=== PATIENT | male | born 1940 | race Caucasian/White ===

== ENCOUNTER → 2020-07-18 14:15 | Outpatient (CLI) | payer MEDICARE, SELFPAY ==
[2020-07-18 13:37] VITALS: BMI 33.7
[2020-07-18 15:23] LABS: Absolute Lymphocyte Count 1.48 X10^3/uL (0.83-4.51); Absolute Neutrophil Count 4.5 X10^3/uL (2.0-7.7); Basophil# 0.06 X10^3/uL; Basophil% 0.9 % (0-1); Eosinophil# 0.27 X10^3/uL; Eosinophils% 3.8 % (0-5); Hematocrit 40.4 % (40-54); Hemoglobin 13.5 g/dL (13.0-16.5); Lymphocyte # 1.48 X10^3/ul (4.0); Mean Corp Hgb Conc 33.4 g/dL (32-36); Mean Corpuscular Hgb 30.3 pg (27.0-32.0); Mean Corpuscular Volume 90.8 fL (80-94); Mean Platelet Vol. 9.1 fl (6.2-12.0); Monocyte# 0.76 X10^3/uL; Monocyte% 10.8 % (0-10); NRBC Flagged by Analyzer 0 % (0-5); Neutrophil # 4.46 X10^3/uL (2.7-7.7); Neutrophil % 63.2 % (47-70); Platelet Count 249 K/mm3 (150-450); RBC Distribution Width CV 15.1 % (11.6-14.6); Red Blood Count 4.45 M/mm3 (4.6-6.2); White Blood Count 7.1 K/mm3 (4.4-11.0)
[2020-07-18 16:05] LABS: ALB/GLOB Ratio 1.2 RATIO (0.9-2.4); AST(SGOT) 17 U/L (15-37); Alanine Aminotransfer ALT/SGPT 21 U/L (16-61); Alkaline Phosphatase 93 U/L (45-117); Anion Gap 7 (5-15); BUN 14 mg/dL (7-18); BUN/Creat Ratio 18.2 RATIO (10-20); Calcium,Total 8.8 mg/dL (8.5-10.1); Chloride 98 mmol/L (98-107); Cholesterol 176 mg/dL (200); Creatinine, Serum 0.77 mg/dL (0.70-1.30); EST Glomerular Filtration Rate 103 mL/min (>60); Est Glom Filt Rate - Afr Amer 125 mL/min (>60); Globulin 3.4 g/dL (2.2-4.2); Glucose 88 mg/dL (74-106); High Density Lipoprotein 60 mg/dL; Potassium 3.8 mmol/L (3.5-5.1); Protein, Total 7.4 g/dL (6.4-8.2); Sodium Level 132 mmol/L (136-145); Triglycerides 131 mg/dL; Very Low Density Lipoprotein 26 mg/dL (5-40)
== END ==
PROVIDERS: Visit Provider Internal Medicine
DX: I10 Essential (primary) hypertension (principal)
CPT/HCPCS: 36415; 80053; 80061; 85025

== ENCOUNTER → 2020-08-09 13:22 | Outpatient (CLI) | payer MEDICARE, SELFPAY ==
--- NOTE | 2020-08-09 13:26 | RAD_ITS ---
PROCEDURE: LUMBAR MYELOGRAM DATE OF EXAMINATION: 08/09/2020 INDICATION: Male, 80 years old. Low back pain. PHYSICIAN: Ubaldo Timmons M.D. CONSENT: The patient''s history and physical findings were reviewed. The lumbar myelogram procedure was discussed with the patient prior to signing a consent. SEDATION: Local anesthesia with 3 mL of 1% lidocaine was used. FLUOROSCOPY TIME (if supplied): (2:04) minutes/seconds. Injection Information: 20 ccs of ISOVUE-M 200 Number of images obtained: 4 TECHNIQUE: Digital fluoroscopy was used to identify a safe approach for the lumbar myelogram. The back was prepped and draped in usual fashion. Local anesthesia was utilized. Under fluoroscopic guidance a 22-gauge spinal needle was inserted into the spinal canal at the L4-5 level. Clear spinal fluid was seen. 20 mL of Isovue 200 M was injected into the spinal canal. There is evidence of a diffuse spinal stenosis at the L2-L3, L3-L4, L4-L5 and L5-S1 levels. Multilevel disc space narrowing. Facet joint osteoarthritis. There is evidence of aortic stenting. RAD/Myelography 2/> Spine Regions IMPRESSION: Multilevel spinal stenosis as described. The patient tolerated the procedure well. Electronically Signed: Ubaldo Timmons MD at 14:59 EST , Service support ,
--- NOTE | 2020-08-09 13:27 | CT_ITS ---
STUDY: CT LUMBAR SPINE WITH INTRATHECAL CONTRAST (LUMBAR CT MYELOGRAM) REASON FOR EXAM: Male, 80 years old. DEGENERATIVE SPONDYLOLISTHESIS, BACK PAIN RADIATION DOSAGE (If Supplied By Facility): CTDIvol = ( 13.82 ) mGy, DLP = ( 373.83 ) mGycm TECHNIQUE: Transaxial images were obtained from the L1 vertebra through the S1, following intrathecal administration of 20 ml of ISOVUE-M 200 contrast material, performed by Dr. CAMPBELL. Please refer to this physicians technical notes for procedural details. Coronal and sagittal reconstructions were obtained. Individualized dose optimization techniques were used for this CT. COMPARISON: None. FINDINGS: Normal lumbar lordosis. There is no substantial scoliosis. Normal vertebrae of the lumbar spine. There is dependent layering of contrast material in the distal thecal sac. The conus medullaris terminates in a normal position at the L1-L2. There is no demonstrated cauda equina nerve root abnormality or intraspinal mass. L1-2: Mild degree of the disc space narrowing. Diffuse posterior disc bulge with hypertrophy of the ligamentum flavum causing a mild degree of central canal stenosis. L2-3: Marked degree of central canal stenosis. Facet joint osteoarthritis and hypertrophy with bilateral neural foraminal stenosis. L3-4: Mild degree of disc space narrowing. Severe central canal stenosis due to hypertrophy of the ligamenta flava and diffuse posterior disc bulge. Facet joint osteoarthritis and hypertrophy. L4-5: Severe degree of central canal stenosis. There is evidence of a right lateral disc herniation causing right neural foraminal stenosis and spinal stenosis. L5-S1: Marked degree of disc space narrowing. Subchondral sclerosis. Facet joint osteoarthritis. There are degenerative changes of the bilateral sacroiliac joints. Covered stent within the abdominal aorta and proximal iliac arteries bilaterally. CT/Spine Lumbar WITH Contrast IMPRESSION: Multilevel spinal stenosis. Electronically Signed: Ubaldo Campbell MD at 15:42 EST , Service support ,
[2020-08-09 13:43] VITALS: BP 143/71; PULSE 74; RESP 16; TEMP 36.6; O2SAT 98; BMI 23.7
[2020-08-09 14:30] VITALS: BP 143/95; PULSE 80; RESP 16; O2SAT 99
[2020-08-09 15:00] VITALS: BP 111/79; PULSE 77; RESP 16; O2SAT 95
[2020-08-09 15:38] VITALS: BP 158/83; PULSE 81; RESP 16; O2SAT 98
== END ==
PROVIDERS: PCP Internal Medicine
DX: M43.10 Spondylolisthesis, site unspecified (principal)
CPT/HCPCS: 62305; 72132

== ENCOUNTER → 2020-09-07 07:04 | Outpatient (CLI) | payer MEDICARE, SELFPAY ==
[2020-08-31 14:25] VITALS: BMI 22.0
--- NOTE | 2020-09-07 07:09 | ECHOCS_ITS ---
Version 2 Reason For Study: CAD/ASHD Procedure This was a 2D Doppler, Color Flow transthoracic echocardiogram. The study was technically difficult. Contrast injection was performed. Exam performed in department. Left Ventricle Normal LV size. Mild concentric left ventricular hypertrophy. Left ventricular systolic function is normal. The estimated ejection fraction is 55 %. No regional wall motion abnormalities noted. Right Ventricle Normal RV size. Normal systolic function. Atria Normal left atrium. Normal right atrium. Mitral Valve Normal mitral valve. Mild (1+) eccentric mitral valve insufficiency. Tricuspid Valve The tricuspid valve is not well visualized. Trivial tricuspid valve insufficiency. Aortic Valve Trisinus/trileaflet aortic valve. Trivial aortic valve insufficiency. Pulmonic Valve Normal pulmonic valve. Great Vessels Normal aortic root. The pulmonary artery is normal size. Normal inferior vena cava. Pericardium/Pleural No pericardial effusion. Medication Diluted definity 2ml given slow IV push to enhance endocardial definition. MMode/2D Measurements & Calculations LVIDd: 5.3 cm IVSd: 1.3 cm Ao root diam: 2.8 cm LVIDs: 3.5 cm LVPWd: 1.3 cm RVDd: 3.6 cm FS: 34.2 % LAV(MOD-bp): 29.0 ml LA A4 area: 13.0 cm2 LA dimension(2D): 3.3 cm LAV(MOD-bp) Indexed: 16.3 ml/m2 LAV(MOD-sp2): 28.5 ml LAV(MOD-sp4): 27.7 ml RA A4 area: 11.4 cm2 Doppler Measurements & Calculations MV E max ricci: 56.6 cm/sec Lat Peak E' Ricci: 9.3 cm/sec Med Peak E' Ricci: 7.1 cm/sec MV A max ricci: 81.9 cm/sec E/E' lat: 6.1 E/E' med: 8.0 MV E/A: 0.69 Ao V2 max: 108.9 cm/sec LV V1 max: 84.1 cm/sec PA V2 max: 91.9 cm/sec Ao max P.7 mmHg LV V1 max P.8 mmHg Ao V2 mean: 71.7 cm/sec Ao mean P.4 mmHg Ao V2 VTI: 21.7 cm TR max ricci: 195.8 cm/sec TR max P.3 mmHg Interpretation Summary Normal LV size. Left ventricular systolic function is normal. The estimated ejection fraction is 55 %. No regional wall motion abnormalities noted. Mild concentric left ventricular hypertrophy. Contrast injection was performed. Ordering Physician: Adair Calderon Referring Physician: Roberto Wing Performed By: Melany Trotter, EVITA, RVT
--- NOTE | 2020-09-07 18:04 | STRESSREP ---
Stress Test Report Pharmacologic myocardial perfusion stress test. 80-year-old man with a history of chest pain patient with known coronary artery disease. Stress protocol Resting EKG demonstrates normal sinus rhythm with a rate of 78 bpm normal intervals are noted. Resting blood pressure is 142/90 mmHg. 0.4 mg of regadenoson was infused per usual protocol followed by rapid intravenous saline flush injection continuous EKG monitoring was performed. Patient maintained sinus rhythm throughout the recording. At rest there were no ST changes noted to suggest abnormal flow reserve. At peak infusion there was approximately 0.[address] depression noted in leads II, III and aVF and 0.[address] depression noted in V5 and V6 suggestive of abnormal flow reserve. The peak blood pressure was 140/90 mmHg. Myocardial perfusion protocol. 11.4 mCi of technetium 99m sestamibi was injected at rest. 0.4 mg of regadenoson was infused per usual protocol. At peak infusion 33.3 mCi of technetium 99m sestamibi was injected stress images were obtained stress and rest images were reconstructed and compared in the short axis vertical long and horizontal long axis. Gated images were obtained. Perfusion SPECT analysis: Review of the stress images demonstrate normal uptake of tracer noted in all areas of the myocardium the resting images similar demonstrate normal uptake of tracer noted in all areas of the myocardium no areas of reversibility are noted suggest ischemia no previous infarct is noted. Gated SPECT analysis: The gated ejection fraction is noted to be 48%. Conclusion: Normal pharmacologic myocardial perfusion stress test with no evidence of ischemia. Low normal ejection fraction. EKG changes suggestive but not diagnostic of ischemia.
== END ==
PROVIDERS: PCP Internal Medicine; Referring Provider Internal Medicine Cardiovascular Disease; Visit Provider Internal Medicine Cardiovascular Disease
DX: I25.10 Atherosclerotic heart disease of native coronary artery without angina pectoris (principal)
CPT/HCPCS: 78452; 93017; 93306; A9500; Q9957; A4216; C8929; J2785

== ENCOUNTER 2020-10-06 14:15 | Observation (INO) | payer MEDICARE, SELFPAY ==
[2020-08-31 14:25] VITALS: BMI 22.0
[2020-09-30 15:24] LABS: Absolute Lymphocyte Count 2.35 X10^3/uL (0.83-4.51); Absolute Neutrophil Count 3.3 X10^3/uL (2.0-7.7); Basophil# 0.05 X10^3/uL; Basophil% 0.8 % (0-1); Eosinophil# 0.21 X10^3/uL; Eosinophils% 3.2 % (0-5); Hematocrit 41.1 % (40-54); Hemoglobin 13.9 g/dL (13.0-16.5); Lymphocyte # 2.35 X10^3/ul (0.83-4.51); Lymphocyte % 35.8 % (19-41); Mean Corp Hgb Conc 33.8 g/dL (32-36); Mean Corpuscular Hgb 32.2 pg (27.0-32.0); Mean Corpuscular Volume 95.1 fL (80-94); Monocyte# 0.64 X10^3/uL; Monocyte% 9.7 % (0-10); NRBC Flagged by Analyzer 0 % (0-5); Neutrophil # 3.29 X10^3/uL (2.7-7.7); Platelet Count 255 K/mm3 (150-450); RBC Distribution Width CV 14.3 % (11.6-14.6); Red Blood Count 4.32 M/mm3 (4.6-6.2); White Blood Count 6.6 K/mm3 (4.4-11.0)
[2020-09-30 15:48] LABS: Partial Thromboplast Time 24.7 Seconds (24.1-36.2)
[2020-09-30 16:20] LABS: Anion Gap 4 (5-15); BUN 15 mg/dL (7-18); BUN/Creat Ratio 15.8 RATIO (10-20); Calcium,Total 9.3 mg/dL (8.5-10.1); Chloride 101 mmol/L (98-107); Creatinine, Serum 0.95 mg/dL (0.70-1.30); EST Glomerular Filtration Rate 81 mL/min (>60); Est Glom Filt Rate - Afr Amer 98 mL/min (>60); Glucose 100 mg/dL (74-106); Sodium Level 134 mmol/L (136-145)
[2020-09-30 16:21] LABS: HIV - WCH Non-Reactive (Nonreactive)
[2020-09-30 16:36] LABS: AST(SGOT) 11 U/L (15-37); Alanine Aminotransfer ALT/SGPT 22 U/L (16-61); Alkaline Phosphatase 73 U/L (45-117); Bilirubin, Direct 0.25 mg/dL (0.00-0.30); Globulin 3.6 g/dL (2.2-4.2); Protein, Total 7.6 g/dL (6.4-8.2)
[2020-10-02 12:07] LABS: HEPATITIS B SURFACE AG Negative (Negative); Hepatitis A AB, Total Negative (Negative); Hepatitis A IgM Antibody Negative (Negative); Hepatitis B Core AB IgM Negative (Negative); Hepatitis B Core Ab Total Negative (Negative); Hepatitis C Ab <0.1 s/co ratio (0.0-0.9)
[2020-10-02 17:29] LABS: Hep B Surface Antibodies Non Reactive (.)
[2020-10-06] VITALS (14 sets, daily range): BP systolic 100–124; BP diastolic 65–79; PULSE 74–118; RESP 16–18; TEMP 36.4–36.8; O2SAT 90–100; BMI 23.2
[2020-10-06] MEDS: Lactated Ringers 1,000 ML 40 ML IV ×2 (06:25→20:42)
[2020-10-06] MEDS: Acetaminophen 500 MG Tablet 1000 MG PO (06:26)
[2020-10-06 06:35] LABS: Bedside Glucose 99 mg/dL (70-110)
--- NOTE | 2020-10-06 07:00 | HP_ITS ---
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) Chronic back pain (Chronic) Back problem (Chronic) Bone fracture (Chronic) Cataract (Chronic) GERD (gastroesophageal reflux disease) (Chronic) GI problem (Chronic) Gastric ulcer (Chronic) Headache, migraine (Chronic) Seasonal allergies (Chronic) Vision problem (Chronic) History of RSV infection (Resolved) Surgical History History of endovascular stent graft for abdominal aortic aneurysm (AAA) (Resolved 12/11/13) History of left heart catheterization (Resolved 11/11/13) Rupture of biceps tendon (Resolved) Family History Grandfather Cancer Father Brain aneurysm Social History (Updated 09/30/20 @ 11:[address] Dawson Escobar DO) Smoking Status: Current every day smoker Tobacco: How many years used: 62 alcohol intake: current alcohol intake frequency: 3 or more drinks per day Alcohol type: beer substance use type: does not use what type of physical activity do you participate in: none HPI lumbar spine: Surgical H&P: Yes Details: Parts of this documentation were recorded by a scribe, this documentation accurately reflects the service provided and the decisions made by me, Dr. Dawson Escobar DO 09/30/20 1030. CHITO CORDON is a 80 year old M here today for his pre-op. DOS: 10/06/2020. Patient denies any medical changes at this time. History and physical: Chief complaint: Patient complains of severe low back pain and bilateral leg pain that is intolerable. History of chief complaint: His complaints have been going on a long time but is gradually gotten worse. He cannot walk very far at all and has to use a walker to do so. He denies any bowel or bladder dysfunction per se. He has failed injections and other conservative measures. Allergies: No known allergies Medications: Patient is on carvedilol, losartan, omeprazole, tamsulosin Past medical history: He has an extensive medical history and this is all documented in the patient's chart. There is no need to repeat what is already in the chart. Social history: Patient is a smoker and has been for a long time. He thinks over 60 years. He drinks occasionally. Family history: Remarkable for cancer and aneurysms. Review of systems: General: Patient is well oriented as to time and place and other than his back appears normal Head: Patient denies headaches concussions or other complaints Eyes: Patient has no cataracts and only complains of vision problems in an 80-year-old. Ears: The only complaint is hard of hearing otherwise no ear pain or other abnormalities Throat: No complaints of soreness knots difficulty swallowing or any other abnormality Respiratory: He has no shortness of breath no cough or other abnormalities. Cardiac: Currently he has no chest pain he has no palpitations or other abnormalities even though he has a well-documented heart disease GI: He has no complaints of diarrhea abdominal pain or other abnormalities Urinary: No difficulty urinating, burning or pain Examination: Patient is normocephalic with no lesions noted on his head. The eyes are equally reactive to light and accommodation extraocular muscles appear intact. Examination of his ears demonstrate no abnormality. Examination of his throat demonstrates that the trachea is midline he has no adenopathy bruits or other abnormalities. Auscultation of the chest demonstrate that his lungs are clear at this time with no adventitious sounds. Auscultation of the heart demonstrates a normal rate and rhythm no murmurs are heard. Palpation of the abdomen reveals a soft nontender there is no organomegaly or tenderness. Urinary was waived. Neuro exam cranial nerves III through XII are grossly intact. Musculoskeletal the patient has known stenosis and so he walks forward bent he is neurologically intact in the lower extremities. Planned surgery: #1 complete decompression L4-5 CPT code: 53756 #2 complete decompression L3-4 CPT code: 73625/51 #3 complete decompression L2-3 CPT code: 12006/51 Assessment & Plan Problems 1. Spinal stenosis of lumbar region with neurogenic claudication M48.062 Coding Level of Care Code Off vis,est,level 2 Diagnoses Spinal stenosis of lumbar region with neurogenic claudication M48.062 Time Spent (min) 20
[2020-10-06] MEDS: Cefazolin 2 GM in 0.9% Normal Saline 100 ML IV (07:24)
--- NOTE | 2020-10-06 07:30 | RAD_ITS ---
STUDY: X-RAY - LUMBAR SPINE REASON FOR EXAM: Male, 80 years old. LUMBAR DECOMPRESSION L2-3,L3-4,L4-5 TECHNIQUE: 1 view(s) of the lumbar spine were obtained. COMPARISON: None FINDINGS: Localization instrument is seen lying posterior to the L4-L5 disc space level. RAD/Spine 1 View Any Level IMPRESSION: Localization instrument is seen lying posterior to the L4-L5 disc space level. Electronically Signed: Ubaldo Timmons MD at 10:56 EDT , Service support ,
[2020-10-06] MEDS: Thrombin 5,000 IU Kit (PSA) 5,000 IU Vial 5000 IU TOPICAL (08:16)
--- NOTE | 2020-10-06 11:20 | PCM.OPRPT ---
Report of Operation Date of Procedure: 10/06/20 Description of Surgical Findings:: Preoperative diagnosis: Severe spinal stenosis L4-5, L3-4, L2-3 Postoperative diagnoses: The same Procedures: #1 lumbar laminectomy decompression L4-5 CPT #55159 #2 Lumbar laminectomy decompression L3-4 CPT #06823/51 #3 Lumbar laminectomy decompression L2-3 CPT #40024/51 Surgeon: Dr. Escobar paraprofessional education assistant: CASSIDY Escalera Anesthesia: General endotracheal anesthesia administered by [facility] Estimated blood loss: 100 cc Drains: Medium Hemovac Complications: None Operative procedure: Patient was taken to the OR where he was placed under general endotracheal anesthesia. Neuro monitoring technicians inserted their leads in the appropriate places. A Keen catheter was inserted. The patient was then moved onto the prone position on the Alexandr frame. He was positioned appropriately with protection of his cervical spine his facial features his genitalia his brachial plexus and his ulnar nerves of both elbows. Once he was properly positioned the low back was prepped and draped in standard fashion. Made a longitudinal incision centered over the area that I thought would be L4-5. Subcutaneous tissues were incised the length of the skin incision. I then opened the lumbar fascia using cautery to the left of the spinous processes and elevated the paravertebral muscles off the lamina of L4. A marker was then put in place and an intraoperative x-ray was taken to assure that we were indeed at the proper level which we were. This was marked. I then extended my incision in a cephalad direction and then opened the lumbar fascia to the left of the spinous processes and elevated them off the lamina of 3 and then the lamina of 2 I also elevated off the top of the lamina of L5. He was controlled of course with the cautery unit and thorough irrigation was carried out frequently. Once this left side was open I then packed it and we opened the opposite side. Was done by elevating the paravertebral muscles off the lamina of L4, L3, and L2. Top of the L5 lamina was also exposed. Thorough irrigation was carried out frequently. The super slide retractors were then put in place giving us good access to all 3 levels. I started by removing the spinous process of the L4 vertebra bottom of the L3 vertebra also removed a little bit of the spinous process of the L5 vertebra. I did all the way down to the thickened lamina and the lamina was thinned out using double-action rongeurs. I then elevated the ligamentum flavum off the underside of the lamina of L4 on both sides with sharp angled curettes. This was done I began the laminectomy process. Using different size Kerrisons angled at 40 degrees and some just angled at 90 degrees I was able to perform the laminectomy using the 45 degree Kerrison's I was able to open the lateral recesses removing all the ligamentum flavum on the right side. Also removed some of it from the left side but this was finished when I changed sides of the table. I then removed the spinous process of the L3 vertebra in the same fashion that I did L4. Once I was down to the lamina I thinned the lamina on both sides with double-action rongeurs and again the ligamentum flavum was released with angled curettes the laminectomy was then started and moved all the way up and then started removing bone and ligamentum flavum from first the right side. Until the lateral recess was completely open. I did it partially on the left side also by removing ligamentum flavum at this level. I then used a double-action rongeur to remove the spinous process of L2 was removed again double-action rongeurs were used to thin down the lamina. Again the angled curettes were used to elevate the ligamentum flavum off the underside of the lamina of L2 and the laminectomy was carried out with 45 degree Kerrison rongeurs I likewise removed the ligamentum flavum with 45 degree Kerrison rongeurs all the way out to his right lateral recess. Completely opened the right side completely I did remove some of the ligamentum flavum off the left side to. Note to be continue to frequently thoroughly irrigate. I then changed side moved to the patient's right side once settled in with the headlamp in place I finished up the lateral recess opening at all 3 levels with 45 degree Kerrison rongeurs. Again we used different sizes depending on the thickness of the ligament etc. This was done we completely were decompressed at all 3 levels. We thoroughly irrigated 1 last time bleeders were controlled with cautery we then placed amnionic membrane over the entire open dura and placed Gelfoam over the top of that. A medium Hemovac drain was inserted and closure was begun. We closed the lumbar fascia using [id number] suture with #1 Vicryl followed by closure of subcutaneous tissues with 2-0 Vicryl in interrupted fashion and the skin was approximated using skin clips. Sterile dressings were then applied. The patient was then recovered in the OR he was moved to his hospital bed and taken to recovery in satisfactory condition. This is the end of operative summary on Eliel Milian. This is Dr. Escobar dictating.
--- NOTE | 2020-10-06 14:00 | PCM.PN.HOSP ---
Subjective: Patient is an 83 y/o with a PMH as outlined who was admitted to the spine surgery service for lumbar decompression surgery o./a of severe, chronic back pain. He had lumbar laminectomy and decompression of L2-3, L3-4 and L4-5. hospitalist service was consulted for medical management. He has a history of hypertension, atherosclerotic heart disease, GERD and gastric ulcer as well as ischemic cardiomyopathy. He also has history of abdominal aortic aneurysm status post stents. Patient also admits to history of drinking at least 5 beers every night and states he has no intention of stopping. Patient was seen after the surgery in his room. He had no complaints. Pain was well controlled. Review of symptoms otherwise negative. He was on 6 L of oxygen via nasal cannula. Vitals were significant for tachycardia with heart rate of 108. Vitals/I&O's: Vital Signs Temp Pulse Resp BP Pulse Ox 97.9 F 108 H 18 123/79 H 100 10/06/20 13:51 10/06/20 13:51 10/06/20 13:51 10/06/20 13:14 10/06/20 13:51 Oxygen Flow Rate (L/min) 6 Oxygen Delivery Method Simple Mask Weight: 152 lb 12.485 oz Body Mass Index (BMI) 23.2 Intake and Output for Last 24 Hours 10/04/20 10/05/20 10/06/20 23:59 23:59 23:59 Intake Total 214 / 214 Output Total 830 / 830 Balance -616 / -616 General: Alert, Oriented x3, Cooperative HEENT: Atraumatic, PERRLA, EOMI, Normocephalic Neck: Supple, No JVD, Negative Carotid Bruits Lungs: Clear to auscultation, Normal air movement Cardiovascular: Regular rate, No murmurs Abdomen: Bowel Sounds Present, Soft, Non Tender Extremities: No edema, Capillary Refill Less than 3 Seconds Skin: No rashes, No breakdown Musculoskeletal: No Tenderness to Palpation of Joints or Extremities, - - back surgical site dressing intact Neurological: Cranial nerves II-XII grossly intact, Neuro grossly intact, Motor Exam 5/5 strength throughout Psych/Mental Status: Normal Affect, Appropriate, Alert and oriented to time, place, person, mood and affect Laboratory Results 10/06/20 06:06: POC Glucose 99 Diagnostic Data Spine X-Ray 10/06/20 07:30 IMPRESSION: Localization instrument is seen lying posterior to the L4-L5 disc space level. Electronically Signed: Ubaldo Timmons MD at 10:56 EDT , Service support , Current Medications Diazepam (Diazepam 5 Mg Tablet) 5 mg PO Q6H PRN PRN PRN Reason: Muscle Spasms Enteral Nutritional Formula (Ensure Surgery 237 Ml Liquid) 237 ml PO TIDCM [facility] Last Admin: 10/06/20 14:00 Dose: Not Given Documented by: Famotidine (Famotidine 20 Mg Tablet) 20 mg PO BID [facility] Lactated Ringer's () 1,000 mls @ 40 mls/hr IV .Q25H [facility] Last Admin: 10/06/20 06:25 Dose: 40 mls/hr Documented by: Cefazolin Sodium () 1 gm in 50 mls @ 100 mls/hr IV Q8H [facility] Stop: 10/06/20 23:59 Sodium Chloride () 250 mls @ 15 mls/hr IV .[id number] PRN PRN Reason: Saline Flush Morphine Sulfate (Morphine 4 Mg/Ml Syringe) 2 - 4 mg IV Q2H PRN PRN PRN Reason: Pain Score 6-10 Ondansetron HCl (Ondansetron 4 Mg/2 Ml Vial) 4 mg IV Q8H PRN PRN PRN Reason: NAUSEA Oxycodone HCl (Oxycodone 5 Mg Tablet) 2.5 - 5 mg PO Q4H PRN PRN PRN Reason: Pain Score 6-10 Senna/Docusate Sodium (Senna/Docusate Sodium 1 Tablet) 2 tablet PO BID [facility] Sodium Chloride (0.9% Saline Lock 10 Ml Syringe) 10 - 40 ml IV UD PRN PRN Reason: SALINE FLUSH Zolpidem Tartrate (Zolpidem Tartrate 5 Mg Tablet) 5 mg PO QHS PRN PRN PRN Reason: INSOMNIA STROKE Vital Signs/Narrative: Vital Signs Temp Pulse Resp BP Pulse Ox 10/06/20 13:51 97.9 F 108 H 18 100 10/06/20 13:14 97.7 F L 107 H 16 123/79 H 100 10/06/20 13:00 109 H 16 105/69 100 10/06/20 12:45 115 H 16 108/65 100 10/06/20 12:30 111 H 16 117/74 96 10/06/20 12:15 102 H 16 114/79 99 10/06/20 12:00 107 H 16 100/67 99 10/06/20 11:45 110 H 16 102/68 99 10/06/20 11:34 97.6 F L 118 H 16 108/75 99 Medical Necessity - Tobacco Use Smoking Status: Current every day smoker Tobacco Use: Cigarettes Assessment/Plan All Active Problems (Last Reviewed 08/31/20 @ 14:[address] Adair Calderon MD) Encounter for pre-operative cardiovascular clearance (Acute) History of endovascular stent graft for abdominal aortic aneurysm (AAA) (Resolved 12/11/13) #Severe spinal stenosis s/p lumbar decompression surgery spine surgery on board pain management as per spine surgery PT/OT on board fall precautions incentive spirometry use #Hypertension: on carvedilol and losartan. 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 Will resume carvedilol and monitor. #Hypertension: on losartan nad carvedilol #GERD: on PPI #BPH: on flomax #History of alcohol dependence says he drinks about 5 beers daily, and has no intention of quitting will put on CIWA protocol and thiamine, multivitamin and folic acid. Need for CIWA score. DVt prophylaxis: SCDs. No anticoagulation due to having had back surgery today Thank you for the courtesy of the consult. Please don't hesitate to consult the hospitalist service with any questions or concerns. Inpatient E&M: 70043 Subs Hosp L2
[2020-10-06] MEDS: Cefazolin 1 GM/50 ML BAG IV ×2 (16:23→23:08)
[2020-10-06] MEDS: Thiamine Hydrochloride 100 MG Tablet PO (16:40)
[2020-10-06] MEDS: hydrOXYzine PAM 25 MG Capsule 50 MG PO (20:44)
[2020-10-06] MEDS: Carvedilol 6.25 MG Tablet PO (22:04)
[2020-10-06] MEDS: oxyCODONE 5 MG Tablet PO (22:05)
[2020-10-06] MEDS: Senna/Docusate Sodium 1 Tablet 2 TABLET PO (22:05)
[2020-10-06] MEDS: Famotidine 20 MG Tablet PO (22:05)
[2020-10-06] MEDS: Zolpidem Tartrate 5 MG Tablet PO (22:06)
[2020-10-07 01:51] VITALS: BMI 23.2
[2020-10-07 02:57] VITALS: BP 135/79; PULSE 94; RESP 18; TEMP 36.5; O2SAT 95
[2020-10-07 05:51] VITALS: BMI 23.2
--- NOTE | 2020-10-07 07:24 | PN_ITS ---
Vitals/I&O's: Vital Signs Temp Pulse Resp BP Pulse Ox 97.7 F L 94 18 135/79 H 95 10/07/20 02:57 10/07/20 02:57 10/07/20 02:57 10/07/20 02:57 10/07/20 02:57 Oxygen Flow Rate (L/min) 2 Oxygen Delivery Method Room Air Weight: 152 lb 12.485 oz Body Mass Index (BMI) 23.2 Intake and Output for Last 24 Hours 10/05/20 10/06/20 10/07/20 23:59 23:59 23:59 Intake Total 1385.33 / 1385.33 300 / 300 Output Total 1750 / 1750 1225 / 1225 Balance -364.67 / -364.67 -925 / -925 Current Medications Carvedilol (Carvedilol 6.25 Mg Tablet) 6.25 mg PO BID [facility] Last Admin: 10/06/20 22:04 Dose: 6.25 mg Documented by: Diazepam (Diazepam 5 Mg Tablet) 5 mg PO Q6H PRN PRN PRN Reason: Muscle Spasms Dicyclomine HCl (Dicyclomine 10 Mg Capsule) 20 mg PO Q6H PRN PRN PRN Reason: abdominal discomfort Enteral Nutritional Formula (Ensure Surgery 237 Ml Liquid) 237 ml PO TIDCM [facility] Last Admin: 10/06/20 16:41 Dose: Not Given Documented by: Famotidine (Famotidine 20 Mg Tablet) 20 mg PO BID [facility] Last Admin: 10/06/20 22:05 Dose: 20 mg Documented by: Folic Acid (Folic Acid 1 Mg Tablet) 1 mg PO DAILY@0800 [facility] Stop: 10/09/20 08:01 Gabapentin (Gabapentin 300 Mg Capsule) 300 mg PO Q8H PRN PRN PRN Reason: moderate to severe anxiety Hydroxyzine Pamoate (Hydroxyzine Loulou 25 Mg Capsule) 50 mg PO Q4H PRN PRN PRN Reason: mild anxiety Last Admin: 10/06/20 20:44 Dose: 50 mg Documented by: Lactated Ringer's () 1,000 mls @ 40 mls/hr IV .Q25H [facility] Last Admin: 10/06/20 20:42 Dose: 40 mls/hr Documented by: Sodium Chloride () 250 mls @ 15 mls/hr IV .[id number] PRN PRN Reason: Saline Flush Loperamide HCl (Loperamide 2 Mg Capsule) 2 mg PO Q4H PRN PRN PRN Reason: LOOSE STOOLS Lorazepam (Lorazepam 1 Mg Tablet) 2 mg PO Q2H PRN PRN; Protocol PRN Reason: CIWA score > 8 but <15 Lorazepam (Lorazepam 1 Mg Tablet) 2 mg PO UD PRN; Protocol PRN Reason: CIWA score >/=15. Lorazepam (Lorazepam 2 Mg/Ml Syringe) 2 mg IV Q2H PRN PRN; Protocol PRN Reason: CIWA score > 8 but <15 Lorazepam (Lorazepam 2 Mg/Ml Syringe) 2 mg IV UD PRN; Protocol PRN Reason: CIWA score >/=15. Losartan Potassium (Losartan Potassium 50 Mg Tablet) 50 mg PO DAILY [facility] Morphine Sulfate (Morphine 4 Mg/Ml Syringe) 2 - 4 mg IV Q2H PRN PRN PRN Reason: Pain Score 6-10 Multivitamins/Minerals (Multivitamins,Ther W-Minerals Tablet) [facility] Ondansetron HCl (Ondansetron 4 Mg/2 Ml Vial) 4 mg IV Q8H PRN PRN PRN Reason: NAUSEA Ondansetron HCl (Ondansetron 8 Mg Tablet) 8 mg PO Q8H PRN PRN PRN Reason: NAUSEA Oxycodone HCl (Oxycodone 5 Mg Tablet) 2.5 - 5 mg PO Q4H PRN PRN PRN Reason: Pain Score 6-10 Last Admin: 10/06/20 22:05 Dose: 5 mg Documented by: Pantoprazole Sodium (Pantoprazole Sodium 40 Mg Tablet) 40 mg PO DAILY [facility] Senna/Docusate Sodium (Senna/Docusate Sodium 1 Tablet) 2 tablet PO BID [facility] Last Admin: 10/06/20 22:05 Dose: 2 tablet Documented by: Sodium Chloride (0.9% Saline Lock 10 Ml Syringe) 10 - 40 ml IV UD PRN PRN Reason: SALINE FLUSH Tamsulosin HCl (Tamsulosin Hcl 0.4 Mg Capsule) 0.4 mg PO DAILY@0830 [facility] Thiamine HCl (Thiamine Hydrochloride 100 Mg Tablet) [facility] Stop: 10/09/20 08:01 Last Admin: 10/06/20 16:40 Dose: 100 mg Documented by: Zolpidem Tartrate (Zolpidem Tartrate 5 Mg Tablet) 5 mg PO QHS PRN PRN PRN Reason: INSOMNIA Last Admin: 10/06/20 22:06 Dose: 5 mg Documented by: Medical Necessity - Tobacco Use Smoking Status: Current every day smoker Tobacco Use: Cigarettes Assessment/Plan All Active Problems (Last Reviewed 08/31/20 @ 14:[address] Adair Calderon MD) Encounter for pre-operative cardiovascular clearance (Acute) History of endovascular stent graft for abdominal aortic aneurysm (AAA) (Resolved 12/11/13) This 80-year-old gentleman is being admitted after scheduled lumbar spine L2-3, L 3 4 and L 4 5 laminectomy and decompression. #Severe spinal stenosis s/p lumbar decompression surgery * spine surgery on board * pain management as per spine surgery * PT/OT on board * fall precautions * incentive spirometry use #Hypertension: on carvedilol and losartan. 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 Will resume carvedilol and monitor. #Hypertension: on losartan nad carvedilol #GERD: on PPI #BPH: on flomax #History of alcohol dependence * says he drinks about 5 beers daily, and has no intention of quitting * will put on CIWA protocol and thiamine, multivitamin and folic acid. * Need for CIWA score. * DVt prophylaxis: SCDs. No anticoagulation due to having had back surgery today
[2020-10-07 07:52] VITALS: O2SAT 97
[2020-10-07] MEDS: Losartan Potassium 50 MG Tablet PO (08:15)
[2020-10-07] MEDS: Carvedilol 6.25 MG Tablet PO ×2 (08:15→20:59)
[2020-10-07] MEDS: Tamsulosin HCl 0.4 MG Capsule PO (08:15)
[2020-10-07] MEDS: Famotidine 20 MG Tablet PO ×2 (08:16→20:59)
[2020-10-07] MEDS: Pantoprazole Sodium 40 MG Tablet PO (08:16)
[2020-10-07] MEDS: Senna/Docusate Sodium 1 Tablet 2 TABLET PO ×2 (08:16→20:57)
[2020-10-07] MEDS: Folic Acid 1 MG Tablet PO (08:17)
[2020-10-07] MEDS: Thiamine Hydrochloride 100 MG Tablet PO ×2 (08:17→18:24)
[2020-10-07] MEDS: Multivitamins,Ther W-Minerals Tablet 1 TABLET PO (08:17)
[2020-10-07] MEDS: oxyCODONE 5 MG Tablet PO ×3 (08:21→18:39)
[2020-10-07 08:32] VITALS: BMI 23.2
--- NOTE | 2020-10-07 09:30 | CASEMGMT ---
RN CM Face to Face with patient for initial transition planning/care coordination assessment. RN CM introduced self and role at [facility]. Patient sitting in chair, alert and oriented. Patient willing to participate in assessment and is able to answer all questions appropriately. Care providers, pharmacy, and demographics verified. Patient wishes to discharge home, denies need for home health at this time. Patient states he has no further needs or concerns at this time. CM to follow for discharge planning needs that may arise. PCP: [facility] Specialists: Shawn spinal surgeon Preferred Pharmacy: [facility] Insurance: [employer] [facility] Prescription Benefit: yes Living Will/HPOA: yes, Rashmi Milian LNOK: Living Arrangements: Patient lives with in a split level home with 6 steps and railing. Patient states he is independent at home. Transportation: DME/HHC: Patient states he has walker, shower chair, grab bars at home. Patient denies previous HHC or SNF Disposition Plan: Patient to discharge home with family support and follow-up plans in place. Adrienne MADRID, RN, CM
--- NOTE | 2020-10-07 10:17 | PCM.PROGNOTE ---
<Salome Armenta INDUSTRIAL ENGINEERING MANAGER - Last Filed: 10/07/20 10:21> Subjective: Patient seen and examined. Ambulating with therapy. Denies significant pain. - Physical Exam Vitals/I&O's: Vital Signs Temp Pulse Resp BP Pulse Ox 97.7 F L 94 18 135/79 H 97 10/07/20 02:57 10/07/20 02:57 10/07/20 02:57 10/07/20 02:57 10/07/20 07:52 Oxygen Flow Rate (L/min) 2 Oxygen Delivery Method Room Air Weight: 152 lb 12.485 oz Body Mass Index (BMI) 23.2 Intake and Output for Last 24 Hours 10/05/20 10/06/20 10/07/20 23:59 23:59 23:59 Intake Total 1385.33 / 1385.33 300 / 300 Output Total 1750 / 1750 1225 / 1225 Balance -364.67 / -364.67 -925 / -925 General: Alert, Oriented x3, Cooperative HEENT: Atraumatic, PERRLA, EOMI, Normocephalic Neck: Supple, No JVD, Negative Carotid Bruits Lungs: Clear to auscultation, Normal air movement Cardiovascular: Regular rate, No murmurs Abdomen: Bowel Sounds Present, Soft, Non Tender, Non-Distended Extremities: No clubbing, No cyanosis, No edema, Capillary Refill Less than 3 Seconds Skin: No rashes, No breakdown, - - Postop dressing intact Musculoskeletal: No Tenderness to Palpation of Joints or Extremities Neurological: Cranial nerves II-XII grossly intact, Neuro grossly intact Psych/Mental Status: Normal Affect, Appropriate Current Medications Carvedilol (Carvedilol 6.25 Mg Tablet) 6.25 mg PO BID [facility] Last Admin: 10/07/20 08:15 Dose: 6.25 mg Documented by: Diazepam (Diazepam 5 Mg Tablet) 5 mg PO Q6H PRN PRN PRN Reason: Muscle Spasms Dicyclomine HCl (Dicyclomine 10 Mg Capsule) 20 mg PO Q6H PRN PRN PRN Reason: abdominal discomfort Enteral Nutritional Formula (Ensure Surgery 237 Ml Liquid) 237 ml PO TIDCM [facility] Last Admin: 10/07/20 08:17 Dose: Not Given Documented by: Famotidine (Famotidine 20 Mg Tablet) 20 mg PO BID [facility] Last Admin: 10/07/20 08:16 Dose: 20 mg Documented by: Folic Acid (Folic Acid 1 Mg Tablet) 1 mg PO DAILY@0800 [facility] Stop: 10/09/20 08:01 Last Admin: 10/07/20 08:17 Dose: 1 mg Documented by: Gabapentin (Gabapentin 300 Mg Capsule) 300 mg PO Q8H PRN PRN PRN Reason: moderate to severe anxiety Hydroxyzine Pamoate (Hydroxyzine Loulou 25 Mg Capsule) 50 mg PO Q4H PRN PRN PRN Reason: mild anxiety Last Admin: 10/06/20 20:44 Dose: 50 mg Documented by: Lactated Ringer's () 1,000 mls @ 40 mls/hr IV .Q25H [facility] Last Admin: 10/06/20 20:42 Dose: 40 mls/hr Documented by: Sodium Chloride () 250 mls @ 15 mls/hr IV .[id number] PRN PRN Reason: Saline Flush Loperamide HCl (Loperamide 2 Mg Capsule) 2 mg PO Q4H PRN PRN PRN Reason: LOOSE STOOLS Lorazepam (Lorazepam 1 Mg Tablet) 2 mg PO Q2H PRN PRN; Protocol PRN Reason: CIWA score > 8 but <15 Lorazepam (Lorazepam 1 Mg Tablet) 2 mg PO UD PRN; Protocol PRN Reason: CIWA score >/=15. Lorazepam (Lorazepam 2 Mg/Ml Syringe) 2 mg IV Q2H PRN PRN; Protocol PRN Reason: CIWA score > 8 but <15 Lorazepam (Lorazepam 2 Mg/Ml Syringe) 2 mg IV UD PRN; Protocol PRN Reason: CIWA score >/=15. Losartan Potassium (Losartan Potassium 50 Mg Tablet) 50 mg PO DAILY [facility] Last Admin: 10/07/20 08:15 Dose: 50 mg Documented by: Morphine Sulfate (Morphine 4 Mg/Ml Syringe) 2 - 4 mg IV Q2H PRN PRN PRN Reason: Pain Score 6-10 Multivitamins/Minerals (Multivitamins,Ther W-Minerals Tablet) [facility] Last Admin: 10/07/20 08:17 Dose: 1 tablet Documented by: Ondansetron HCl (Ondansetron 4 Mg/2 Ml Vial) 4 mg IV Q8H PRN PRN PRN Reason: NAUSEA Ondansetron HCl (Ondansetron 8 Mg Tablet) 8 mg PO Q8H PRN PRN PRN Reason: NAUSEA Oxycodone HCl (Oxycodone 5 Mg Tablet) 2.5 - 5 mg PO Q4H PRN PRN PRN Reason: Pain Score 6-10 Last Admin: 10/07/20 08:21 Dose: 5 mg Documented by: Pantoprazole Sodium (Pantoprazole Sodium 40 Mg Tablet) 40 mg PO DAILY [facility] Last Admin: 10/07/20 08:16 Dose: 40 mg Documented by: Senna/Docusate Sodium (Senna/Docusate Sodium 1 Tablet) 2 tablet PO BID [facility] Last Admin: 10/07/20 08:16 Dose: 2 tablet Documented by: Sodium Chloride (0.9% Saline Lock 10 Ml Syringe) 10 - 40 ml IV UD PRN PRN Reason: SALINE FLUSH Tamsulosin HCl (Tamsulosin Hcl 0.4 Mg Capsule) 0.4 mg PO DAILY@0830 [facility] Last Admin: 10/07/20 08:15 Dose: 0.4 mg Documented by: Thiamine HCl (Thiamine Hydrochloride 100 Mg Tablet) [facility] Stop: 10/09/20 08:01 Last Admin: 10/07/20 08:17 Dose: 100 mg Documented by: Zolpidem Tartrate (Zolpidem Tartrate 5 Mg Tablet) 5 mg PO QHS PRN PRN PRN Reason: INSOMNIA Last Admin: 10/06/20 22:06 Dose: 5 mg Documented by: Medical Necessity - Tobacco Use Smoking Status: Current every day smoker Tobacco Use: Cigarettes Assessment/Plan All Active Problems (Last Reviewed 08/31/20 @ 14:[address] Adari Calderon MD) Encounter for pre-operative cardiovascular clearance (Acute) History of endovascular stent graft for abdominal aortic aneurysm (AAA) (Resolved 12/11/13) 1. Severe spinal stenosis status post lumbar decompression surgery 10/06/2020-management per surgery. PT/OT. 2. Hypertension-stable, continue carvedilol, losartan. 3. History of alcohol dependence-not interested in cessation. Thiamine, multivitamin, folic acid supplementation. CIWA. 4. GERD-continue PPI. 5. BPH-on Flomax. DVT prophylaxis-SCDs This patient was seen by CHRIS Santos under the supervision of Dr. Regalado. <Mello Regalado - Last Filed: 10/07/20 17:00> Subjective: Seen and examined. Patient had back surgery. Drain contains serosanguineous fluid. Denies any severe pain. Patient able to turn around the bed. Objective: General: Alert, Oriented x3, Cooperative HEENT: Atraumatic, PERRLA, EOMI, Normocephalic Oral: No Gingival or Mucosal Lesions/ Ulcerations Neck: Supple, No JVD, Negative Carotid Bruits Lungs: Air entry equal in bilateral lung bases. No crepitation/rhonchi Cardiovascular: Regular rate, Regular Rhythm, Normal S1, Normal S2, No murmurs Abdomen: Bowel Sounds Present, Soft, Non Tender, Non-Distended : No renal angle tenderness. No suprapubic tenderness. Extremities: No edema, Capillary Refill Less than 3 Seconds Skin: No rashes, No breakdown Musculoskeletal: No Tenderness to Palpation of Joints or Extremities Spine: Surgical dressing is dry. Drain contains a small amount of serosanguineous fluid. Mild tenderness on deep palpation. Neurological: Cranial nerves II-XII grossly intact, Deep Tendon Reflexes 2+/4 and Symmetrical, Neuro grossly intact Psych/Mental Status: Normal Affect, Appropriate. - Physical Exam Vitals/I&O's: Vital Signs Temp Pulse Resp BP Pulse Ox 98.1 F 91 20 H 128/61 H 97 10/07/20 14:25 10/07/20 14:25 10/07/20 14:25 10/07/20 14:25 10/07/20 14:25 Oxygen Flow Rate (L/min) 2 Oxygen Delivery Method Room Air Weight: 152 lb 12.485 oz Body Mass Index (BMI) 23.2 Intake and Output for Last 24 Hours 10/05/20 10/06/20 10/07/20 23:59 23:59 23:59 Intake Total 1385.33 / 1385.33 660 / 660 Output Total 1750 / 1750 2024 Balance -364.67 / -364.67 -1365 / -1365 Current Medications Carvedilol (Carvedilol 6.25 Mg Tablet) 6.25 mg PO BID [facility] Last Admin: 10/07/20 08:15 Dose: 6.25 mg Documented by: Diazepam (Diazepam 5 Mg Tablet) 5 mg PO Q6H PRN PRN PRN Reason: Muscle Spasms Dicyclomine HCl (Dicyclomine 10 Mg Capsule) 20 mg PO Q6H PRN PRN PRN Reason: abdominal discomfort Enteral Nutritional Formula (Ensure Surgery 237 Ml Liquid) 237 ml PO TIDCM [facility] Last Admin: 10/07/20 16:26 Dose: Not Given Documented by: Famotidine (Famotidine 20 Mg Tablet) 20 mg PO BID [facility] Last Admin: 10/07/20 08:16 Dose: 20 mg Documented by: Folic Acid (Folic Acid 1 Mg Tablet) 1 mg PO DAILY@0800 [facility] Stop: 10/09/20 08:01 Last Admin: 10/07/20 08:17 Dose: 1 mg Documented by: Gabapentin (Gabapentin 300 Mg Capsule) 300 mg PO Q8H PRN PRN PRN Reason: moderate to severe anxiety Hydroxyzine Pamoate (Hydroxyzine Loulou 25 Mg Capsule) 50 mg PO Q4H PRN PRN PRN Reason: mild anxiety Last Admin: 10/06/20 20:44 Dose: 50 mg Documented by: Lactated Ringer's () 1,000 mls @ 40 mls/hr IV .Q25H [facility] Last Admin: 10/06/20 20:42 Dose: 40 mls/hr Documented by: Sodium Chloride () 250 mls @ 15 mls/hr IV .[id number] PRN PRN Reason: Saline Flush Loperamide HCl (Loperamide 2 Mg Capsule) 2 mg PO Q4H PRN PRN PRN Reason: LOOSE STOOLS Lorazepam (Lorazepam 1 Mg Tablet) 2 mg PO Q2H PRN PRN; Protocol PRN Reason: CIWA score > 8 but <15 Lorazepam (Lorazepam 1 Mg Tablet) 2 mg PO UD PRN; Protocol PRN Reason: CIWA score >/=15. Lorazepam (Lorazepam 2 Mg/Ml Syringe) 2 mg IV Q2H PRN PRN; Protocol PRN Reason: CIWA score > 8 but <15 Lorazepam (Lorazepam 2 Mg/Ml Syringe) 2 mg IV UD PRN; Protocol PRN Reason: CIWA score >/=15. Losartan Potassium (Losartan Potassium 50 Mg Tablet) 50 mg PO DAILY [facility] Last Admin: 10/07/20 08:15 Dose: 50 mg Documented by: Morphine Sulfate (Morphine 4 Mg/Ml Syringe) 2 - 4 mg IV Q2H PRN PRN PRN Reason: Pain Score 6-10 Multivitamins/Minerals (Multivitamins,Ther W-Minerals Tablet) [facility] Last Admin: 10/07/20 08:17 Dose: 1 tablet Documented by: Ondansetron HCl (Ondansetron 4 Mg/2 Ml Vial) 4 mg IV Q8H PRN PRN PRN Reason: NAUSEA Ondansetron HCl (Ondansetron 8 Mg Tablet) 8 mg PO Q8H PRN PRN PRN Reason: NAUSEA Oxycodone HCl (Oxycodone 5 Mg Tablet) 2.5 - 5 mg PO Q4H PRN PRN PRN Reason: Pain Score 6-10 Last Admin: 10/07/20 14:41 Dose: 5 mg Documented by: Pantoprazole Sodium (Pantoprazole Sodium 40 Mg Tablet) 40 mg PO DAILY [facility] Last Admin: 10/07/20 08:16 Dose: 40 mg Documented by: Senna/Docusate Sodium (Senna/Docusate Sodium 1 Tablet) 2 tablet PO BID [facility] Last Admin: 10/07/20 08:16 Dose: 2 tablet Documented by: Sodium Chloride (0.9% Saline Lock 10 Ml Syringe) 10 - 40 ml IV UD PRN PRN Reason: SALINE FLUSH Tamsulosin HCl (Tamsulosin Hcl 0.4 Mg Capsule) 0.4 mg PO DAILY@0830 [facility] Last Admin: 10/07/20 08:15 Dose: 0.4 mg Documented by: Thiamine HCl (Thiamine Hydrochloride 100 Mg Tablet) [facility] Stop: 10/09/20 08:01 Last Admin: 10/07/20 08:17 Dose: 100 mg Documented by: Zolpidem Tartrate (Zolpidem Tartrate 5 Mg Tablet) 5 mg PO QHS PRN PRN PRN Reason: INSOMNIA Last Admin: 10/06/20 22:06 Dose: 5 mg Documented by: Assessment/Plan This patient was seen in conjunction with INDUSTRIAL ENGINEERING MANAGERSalome. I have independently interviewed and examined the patient and reviewed pertinent history, examination findings, laboratory and plan of management. I have reviewed the note and agree with the documented findings with the few additional points. In brief, patient is 80-year-old male admitted with chronic spinal stenosis status post lumbar spinal laminectomy and decompression, L2-L3, L3-L4 and L4-5. Small drain present neurosurgical site. PT and OT on board. Other comorbidities as mentioned above. Heart rate and blood pressure are controlled. I have discussed my assessment with INDUSTRIAL ENGINEERING MANAGERSalome and orders have been reviewed. Inpatient E&M: 57616 Subs Hosp L2
[2020-10-07 11:34] VITALS: BP 119/68; PULSE 88; RESP 18; TEMP 36.6; O2SAT 98
[2020-10-07 14:23] VITALS: BMI 23.2
[2020-10-07 14:25] VITALS: BP 128/61; PULSE 91; RESP 20; TEMP 36.7; O2SAT 97
--- NOTE | 2020-10-07 15:29 | CASEMGMT ---
SAMANTHA CM in to discuss CAMPOS form with patient. RN CM explained CAMPOS form, patient voiced understanding. Pt signed form and filed in chart. Pt provided with a copy of signed CAMPOS form. Patient had no further questions or concerns at this time.
--- NOTE | 2020-10-07 16:56 | PCM.PN.BLA ---
Progress Note Stop day #1: Gerry is doing extremely well. He has been walking around in the hospital with his walker he is happy to report that all of his leg pain is gone. Is very pleased as I am 2. Dressing is dry had a lot of drainage out of his Hemovac so we will keep it in 1 more day. Last night he had about 110 out from the surgery. Marina has a significant amount even now. Neurologically he is intact. We discussed his future plans he stated to me that he wishes to start living again. The last 3 months he has been basically in a wheelchair locked up at home. See him again tomorrow I will change his dressing remove his drain and probably let him go home. STROKE Vital Signs/Narrative: Vital Signs Temp Pulse Resp BP Pulse Ox 10/07/20 14:25 98.1 F 91 20 H 128/61 H 97
[2020-10-07] MEDS: Lactated Ringers 1,000 ML 40 ML IV (18:37)
--- NOTE | 2020-10-07 18:42 | NURSING ---
Pt was sitting in chair for about 1hr 30min. Pt had a BM prior to this. Pt assisted back to bed at this time. Call light in reach.
[2020-10-07 20:50] VITALS: BP 133/89; PULSE 100; RESP 18; TEMP 37.1; O2SAT 93
[2020-10-08 02:09] VITALS: BP 142/82; PULSE 98; RESP 17; TEMP 37; O2SAT 93
[2020-10-08] MEDS: 0.9% Saline Lock 10 ML Syringe IV (05:07)
[2020-10-08 08:12] VITALS: BP 129/84; PULSE 99; RESP 18; TEMP 36.9; O2SAT 94
[2020-10-08] MEDS: oxyCODONE 5 MG Tablet PO (08:22)
[2020-10-08] MEDS: Thiamine Hydrochloride 100 MG Tablet PO (08:23)
[2020-10-08] MEDS: Multivitamins,Ther W-Minerals Tablet 1 TABLET PO (08:23)
[2020-10-08] MEDS: Folic Acid 1 MG Tablet PO (08:24)
[2020-10-08] MEDS: Tamsulosin HCl 0.4 MG Capsule PO (08:24)
[2020-10-08 08:32] LABS: Absolute Lymphocyte Count 1.97 X10^3/uL (0.83-4.51); Basophil# 0.04 X10^3/uL; Basophil% 0.4 % (0-1); Eosinophil# 0.09 X10^3/uL; Hematocrit 31.6 % (40-54); Hemoglobin 10.6 g/dL (13.0-16.5); Lymphocyte # 1.97 X10^3/ul (0.83-4.51); Lymphocyte % 20.9 % (19-41); Mean Corp Hgb Conc 33.5 g/dL (32-36); Mean Corpuscular Hgb 31.6 pg (27.0-32.0); Mean Corpuscular Volume 94.3 fL (80-94); Mean Platelet Vol. 8.8 fl (6.2-12.0); Monocyte# 1.29 X10^3/uL; Monocyte% 13.7 % (0-10); NRBC Flagged by Analyzer 0 % (0-5); Neutrophil # 6.01 X10^3/uL (2.7-7.7); Neutrophil % 63.6 % (47-70); Platelet Count 200 K/mm3 (150-450); RBC Distribution Width CV 14.4 % (11.6-14.6); RBC Distribution Width SD 50.3 fl (35.1-43.9); Red Blood Count 3.35 M/mm3 (4.6-6.2); White Blood Count 9.4 K/mm3 (4.4-11.0)
[2020-10-08 08:44] LABS: Anion Gap 6 (5-15); BUN 10 mg/dL (7-18); BUN/Creat Ratio 17.7 RATIO (10-20); Calcium,Total 8.6 mg/dL (8.5-10.1); Chloride 100 mmol/L (98-107); Creatinine, Serum 0.56 mg/dL (0.70-1.30); EST Glomerular Filtration Rate 148 mL/min (>60); Est Glom Filt Rate - Afr Amer 179 mL/min (>60); Glucose 103 mg/dL (74-106); Potassium 3.5 mmol/L (3.5-5.1); Sodium Level 135 mmol/L (136-145)
--- NOTE | 2020-10-08 09:38 | PCM.PROGNOTE ---
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 States pain is well controlled. Denies other symptoms or complaints. Plan for DC home per surgery. Okay for discharge from a medical standpoint. - Physical Exam Vitals/I&O's: Vital Signs Temp Pulse Resp BP Pulse Ox 98.4 F 99 18 129/84 H 94 10/08/20 08:12 10/08/20 08:12 10/08/20 08:12 10/08/20 08:12 10/08/20 08:12 Oxygen Flow Rate (L/min) 2 Oxygen Delivery Method Room Air Weight: 152 lb 12.485 oz Body Mass Index (BMI) 23.2 Intake and Output for Last 24 Hours 10/06/20 10/07/20 10/08/20 23:59 23:59 23:59 Intake Total 1385.33 / 1385.33 2276.67 / 2726.67 850 / 850 Output Total 1750 / 1750 2595 / 3170 1650 / 1650 Balance -364.67 / -364.67 -318.33 / -443.33 -800 / -800 General: Alert, Oriented x3, Cooperative HEENT: Atraumatic, PERRLA, EOMI, Normocephalic Neck: Supple, No JVD, Negative Carotid Bruits Lungs: Clear to auscultation, Normal air movement Cardiovascular: Regular rate, No murmurs Abdomen: Bowel Sounds Present, Soft, Non Tender, Non-Distended Extremities: No clubbing, No cyanosis, No edema, Capillary Refill Less than 3 Seconds Skin: No rashes, No breakdown, - - Postop dressing intact Musculoskeletal: No Tenderness to Palpation of Joints or Extremities Neurological: Cranial nerves II-XII grossly intact, Neuro grossly intact Psych/Mental Status: Normal Affect, Appropriate Laboratory Results 10/08/20 08:08: WBC 9.4, RBC 3.35 L, Hgb 10.6 L, Hct 31.6 L, MCV 94.3 H, MCH 31.6, MCHC 33.5, RDW Std Deviation 50.3 H, RDW Coeff of Tea 14.4, Plt Count 200, MPV 8.8, Immature Gran % (Auto) 0.400, Neut % (Auto) 63.6, Lymph % (Auto) 20.9, [place] % (Auto) 13.7 H, Eos % (Auto) 1.0, Baso % (Auto) 0.4, Absolute Neuts (auto) 6.0, Absolute Lymphs (auto) 1.97, Nucleated RBC % 0 10/08/20 08:08: Sodium 135 L, Potassium 3.5, Chloride 100, Carbon Dioxide 29.0, Anion Gap 6, BUN 10, Creatinine 0.56 L, Estim Creat Clear Calc 57.00, Est GFR (MDRD) Af Amer 179, Est GFR (MDRD) Non-Af 148, BUN/Creatinine Ratio 17.7, Glucose 103, Calcium 8.6 Current Medications Carvedilol (Carvedilol 6.25 Mg Tablet) 6.25 mg PO BID [facility] Last Admin: 10/07/20 20:59 Dose: 6.25 mg Documented by: Diazepam (Diazepam 5 Mg Tablet) 5 mg PO Q6H PRN PRN PRN Reason: Muscle Spasms Dicyclomine HCl (Dicyclomine 10 Mg Capsule) 20 mg PO Q6H PRN PRN PRN Reason: abdominal discomfort Enteral Nutritional Formula (Ensure Surgery 237 Ml Liquid) 237 ml PO TIDCM [facility] Last Admin: 10/08/20 08:23 Dose: Not Given Documented by: Famotidine (Famotidine 20 Mg Tablet) 20 mg PO BID [facility] Last Admin: 10/07/20 20:59 Dose: 20 mg Documented by: Folic Acid (Folic Acid 1 Mg Tablet) 1 mg PO DAILY@0800 [facility] Stop: 10/09/20 08:01 Last Admin: 10/08/20 08:24 Dose: 1 mg Documented by: Gabapentin (Gabapentin 300 Mg Capsule) 300 mg PO Q8H PRN PRN PRN Reason: moderate to severe anxiety Hydroxyzine Pamoate (Hydroxyzine Loulou 25 Mg Capsule) 50 mg PO Q4H PRN PRN PRN Reason: mild anxiety Last Admin: 10/06/20 20:44 Dose: 50 mg Documented by: Lactated Ringer's () 1,000 mls @ 40 mls/hr IV .Q25H [facility] Last Admin: 10/07/20 18:37 Dose: 40 mls/hr Documented by: Sodium Chloride () 250 mls @ 15 mls/hr IV .[id number] PRN PRN Reason: Saline Flush Loperamide HCl (Loperamide 2 Mg Capsule) 2 mg PO Q4H PRN PRN PRN Reason: LOOSE STOOLS Lorazepam (Lorazepam 1 Mg Tablet) 2 mg PO Q2H PRN PRN; Protocol PRN Reason: CIWA score > 8 but <15 Lorazepam (Lorazepam 1 Mg Tablet) 2 mg PO UD PRN; Protocol PRN Reason: CIWA score >/=15. Lorazepam (Lorazepam 2 Mg/Ml Syringe) 2 mg IV Q2H PRN PRN; Protocol PRN Reason: CIWA score > 8 but <15 Lorazepam (Lorazepam 2 Mg/Ml Syringe) 2 mg IV UD PRN; Protocol PRN Reason: CIWA score >/=15. Losartan Potassium (Losartan Potassium 50 Mg Tablet) 50 mg PO DAILY [facility] Last Admin: 10/07/20 08:15 Dose: 50 mg Documented by: Morphine Sulfate (Morphine 4 Mg/Ml Syringe) 2 - 4 mg IV Q2H PRN PRN PRN Reason: Pain Score 6-10 Multivitamins/Minerals (Multivitamins,Ther W-Minerals Tablet) [facility] Last Admin: 10/08/20 08:23 Dose: 1 tablet Documented by: Ondansetron HCl (Ondansetron 4 Mg/2 Ml Vial) 4 mg IV Q8H PRN PRN PRN Reason: NAUSEA Ondansetron HCl (Ondansetron 8 Mg Tablet) 8 mg PO Q8H PRN PRN PRN Reason: NAUSEA Oxycodone HCl (Oxycodone 5 Mg Tablet) 2.5 - 5 mg PO Q4H PRN PRN PRN Reason: Pain Score 6-10 Last Admin: 10/08/20 08:22 Dose: 2.5 mg Documented by: Pantoprazole Sodium (Pantoprazole Sodium 40 Mg Tablet) 40 mg PO DAILY [facility] Last Admin: 10/07/20 08:16 Dose: 40 mg Documented by: Senna/Docusate Sodium (Senna/Docusate Sodium 1 Tablet) 2 tablet PO BID [facility] Last Admin: 10/07/20 20:57 Dose: 2 tablet Documented by: Sodium Chloride (0.9% Saline Lock 10 Ml Syringe) 10 - 40 ml IV UD PRN PRN Reason: SALINE FLUSH Last Admin: 10/08/20 05:07 Dose: 10 ml Documented by: Tamsulosin HCl (Tamsulosin Hcl 0.4 Mg Capsule) 0.4 mg PO DAILY@0830 [facility] Last Admin: 10/08/20 08:24 Dose: 0.4 mg Documented by: Thiamine HCl (Thiamine Hydrochloride 100 Mg Tablet) 100 mg PO BIDCM [facility] Stop: 10/09/20 08:01 Last Admin: 10/08/20 08:23 Dose: 100 mg Documented by: Zolpidem Tartrate (Zolpidem Tartrate 5 Mg Tablet) 5 mg PO QHS PRN PRN PRN Reason: INSOMNIA Last Admin: 10/06/20 22:06 Dose: 5 mg Documented by: Medical Necessity - Tobacco Use Smoking Status: Current every day smoker Tobacco Use: Cigarettes Assessment/Plan All Active Problems (Last Reviewed 08/31/20 @ 14:[address] Adair Calderon MD) Encounter for pre-operative cardiovascular clearance (Acute) History of endovascular stent graft for abdominal aortic aneurysm (AAA) (Resolved 12/11/13) 1. Severe spinal stenosis status post lumbar decompression surgery 10/06/2020-management per surgery. PT/OT. 2. Hypertension-stable, continue carvedilol, losartan. 3. History of alcohol dependence-not interested in cessation. Thiamine, multivitamin, folic acid supplementation. CIWA. 4. GERD-continue PPI. 5. BPH-on Flomax. DVT prophylaxis-SCDs Discharge planning: Okay for discharge from a medical standpoint. Hospitalist services will sign off at this time. This patient was seen by CHRIS Santos under the supervision of Dr. Regalado. <Mello Regalado - Last Filed: 10/08/20 10:59> Objective: Patient has mild back pain on movement otherwise comfortable. On exam General: Alert, Oriented x3, Cooperative HEENT: Atraumatic, PERRLA, EOMI, Normocephalic Oral: No Gingival or Mucosal Lesions/ Ulcerations Neck: Supple, No JVD, Negative Carotid Bruits Lungs: Air entry diminished in bilateral lung bases. No crepitation/rhonchi Cardiovascular: Regular rate, Regular Rhythm, Normal S1, Normal S2, No murmurs Abdomen: Bowel Sounds Present, Soft, Non Tender, Non-Distended : No renal angle tenderness. No suprapubic tenderness. Extremities: No edema, Capillary Refill Less than 3 Seconds Skin: No rashes, No breakdown Musculoskeletal: ROM full. No Tenderness to Palpation of Joints or Extremities Spine: BO drain has 100 mL. Surgical dressing is dry. Mild paraspinal muscle tenderness. Neurological: Cranial nerves II-XII grossly intact, Deep Tendon Reflexes 2+/4, muscle strength 5/5 at major joints Psych/Mental Status: Normal Affect, Appropriate. - Physical Exam Vitals/I&O's: Vital Signs Temp Pulse Resp BP Pulse Ox 98.4 F 99 18 129/84 H 94 10/08/20 08:12 10/08/20 08:12 10/08/20 08:12 10/08/20 08:12 10/08/20 08:12 Oxygen Flow Rate (L/min) 2 Oxygen Delivery Method Room Air Weight: 152 lb 12.485 oz Body Mass Index (BMI) 23.2 Intake and Output for Last 24 Hours 10/06/20 10/07/20 10/08/20 23:59 23:59 23:59 Intake Total 1385.33 / 1385.33 2276.67 / 2726.67 1489.33 / 1489.33 Output Total 1750 / 1750 2595 / 3170 1650 / 1650 Balance -364.67 / -364.67 -318.33 / -443.33 -160.67 / -160.67 Laboratory Results 10/08/20 08:08: WBC 9.4, RBC 3.35 L, Hgb 10.6 L, Hct 31.6 L, MCV 94.3 H, MCH 31.6, MCHC 33.5, RDW Std Deviation 50.3 H, RDW Coeff of Tea 14.4, Plt Count 200, MPV 8.8, Immature Gran % (Auto) 0.400, Neut % (Auto) 63.6, Lymph % (Auto) 20.9, [place] % (Auto) 13.7 H, Eos % (Auto) 1.0, Baso % (Auto) 0.4, Absolute Neuts (auto) 6.0, Absolute Lymphs (auto) 1.97, Nucleated RBC % 0 10/08/20 08:08: Sodium 135 L, Potassium 3.5, Chloride 100, Carbon Dioxide 29.0, Anion Gap 6, BUN 10, Creatinine 0.56 L, Estim Creat Clear Calc 57.00, Est GFR (MDRD) Af Amer 179, Est GFR (MDRD) Non-Af 148, BUN/Creatinine Ratio 17.7, Glucose 103, Calcium 8.6 Current Medications Carvedilol (Carvedilol 6.25 Mg Tablet) 6.25 mg PO BID [facility] Last Admin: 10/07/20 20:59 Dose: 6.25 mg Documented by: Diazepam (Diazepam 5 Mg Tablet) 5 mg PO Q6H PRN PRN PRN Reason: Muscle Spasms Dicyclomine HCl (Dicyclomine 10 Mg Capsule) 20 mg PO Q6H PRN PRN PRN Reason: abdominal discomfort Enteral Nutritional Formula (Ensure Surgery 237 Ml Liquid) 237 ml PO TIDCM [facility] Last Admin: 10/08/20 08:23 Dose: Not Given Documented by: Famotidine (Famotidine 20 Mg Tablet) 20 mg PO BID [facility] Last Admin: 10/07/20 20:59 Dose: 20 mg Documented by: Folic Acid (Folic Acid 1 Mg Tablet) 1 mg PO DAILY@0800 [facility] Stop: 10/09/20 08:01 Last Admin: 10/08/20 08:24 Dose: 1 mg Documented by: Gabapentin (Gabapentin 300 Mg Capsule) 300 mg PO Q8H PRN PRN PRN Reason: moderate to severe anxiety Hydroxyzine Pamoate (Hydroxyzine Loulou 25 Mg Capsule) 50 mg PO Q4H PRN PRN PRN Reason: mild anxiety Last Admin: 10/06/20 20:44 Dose: 50 mg Documented by: Lactated Ringer's () 1,000 mls @ 40 mls/hr IV .Q25H [facility] Last Infusion: 10/08/20 10:36 Dose: Infused Documented by: Sodium Chloride () 250 mls @ 15 mls/hr IV .[id number] PRN PRN Reason: Saline Flush Loperamide HCl (Loperamide 2 Mg Capsule) 2 mg PO Q4H PRN PRN PRN Reason: LOOSE STOOLS Lorazepam (Lorazepam 1 Mg Tablet) 2 mg PO Q2H PRN PRN; Protocol PRN Reason: CIWA score > 8 but <15 Lorazepam (Lorazepam 1 Mg Tablet) 2 mg PO UD PRN; Protocol PRN Reason: CIWA score >/=15. Lorazepam (Lorazepam 2 Mg/Ml Syringe) 2 mg IV Q2H PRN PRN; Protocol PRN Reason: CIWA score > 8 but <15 Lorazepam (Lorazepam 2 Mg/Ml Syringe) 2 mg IV UD PRN; Protocol PRN Reason: CIWA score >/=15. Losartan Potassium (Losartan Potassium 50 Mg Tablet) 50 mg PO DAILY [facility] Last Admin: 10/07/20 08:15 Dose: 50 mg Documented by: Morphine Sulfate (Morphine 4 Mg/Ml Syringe) 2 - 4 mg IV Q2H PRN PRN PRN Reason: Pain Score 6-10 Multivitamins/Minerals (Multivitamins,Ther W-Minerals Tablet) [facility] Last Admin: 10/08/20 08:23 Dose: 1 tablet Documented by: Ondansetron HCl (Ondansetron 4 Mg/2 Ml Vial) 4 mg IV Q8H PRN PRN PRN Reason: NAUSEA Ondansetron HCl (Ondansetron 8 Mg Tablet) 8 mg PO Q8H PRN PRN PRN Reason: NAUSEA Oxycodone HCl (Oxycodone 5 Mg Tablet) 2.5 - 5 mg PO Q4H PRN PRN PRN Reason: Pain Score 6-10 Last Admin: 10/08/20 08:22 Dose: 2.5 mg Documented by: Pantoprazole Sodium (Pantoprazole Sodium 40 Mg Tablet) 40 mg PO DAILY [facility] Last Admin: 10/07/20 08:16 Dose: 40 mg Documented by: Senna/Docusate Sodium (Senna/Docusate Sodium 1 Tablet) 2 tablet PO BID [facility] Last Admin: 10/07/20 20:57 Dose: 2 tablet Documented by: Sodium Chloride (0.9% Saline Lock 10 Ml Syringe) 10 - 40 ml IV UD PRN PRN Reason: SALINE FLUSH Last Admin: 10/08/20 05:07 Dose: 10 ml Documented by: Tamsulosin HCl (Tamsulosin Hcl 0.4 Mg Capsule) 0.4 mg PO DAILY@0830 [facility] Last Admin: 10/08/20 08:24 Dose: 0.4 mg Documented by: Thiamine HCl (Thiamine Hydrochloride 100 Mg Tablet) [facility] Stop: 10/09/20 08:01 Last Admin: 10/08/20 08:23 Dose: 100 mg Documented by: Zolpidem Tartrate (Zolpidem Tartrate 5 Mg Tablet) 5 mg PO QHS PRN PRN PRN Reason: INSOMNIA Last Admin: 10/06/20 22:06 Dose: 5 mg Documented by: Assessment/Plan This patient was seen in conjunction with Salome HARO. I have independently interviewed and examined the patient and reviewed pertinent history, examination findings, laboratory and plan of management. I have reviewed the note and agree with the documented findings with the few additional points. In brief, patient is 80-year-old male admitted with chronic spinal stenosis status post lumbar spinal laminectomy and decompression, L2-L3, L3-L4 and L4-5. BO drain is about 100 normal serosanguineous fluid collection. Surgical dressing dry. Neurovascular bundle of lower extremities intact. PT and OT on board. Other comorbidities as mentioned above. Heart rate and blood pressure are controlled. I have discussed my assessment with Salome HARO and orders have been reviewed. Inpatient E&M: 83003 Subs Hosp L2
[2020-10-08] MEDS: Pantoprazole Sodium 40 MG Tablet PO (10:57)
[2020-10-08] MEDS: Losartan Potassium 50 MG Tablet PO (10:57)
[2020-10-08] MEDS: Famotidine 20 MG Tablet PO (10:58)
[2020-10-08] MEDS: Carvedilol 6.25 MG Tablet PO (10:58)
[2020-10-08 11:02] VITALS: BP 98/63; PULSE 110; RESP 18; O2SAT 94
[2020-10-08] MEDS: Potassium Chloride Oral Tablet 20 MEQ 40 MEQ PO (11:40)
--- NOTE | 2020-10-08 12:33 | DCINST_ITS ---
Discharge Activity: May Not Drive, May Shower May resume sexual activity in: 4 weeks Weight Bearing Status: Full weight bearing Call your doctor if your incision/area has: Continuous Slow Oozing, Increased Pain/ Swelling, Foul Smelling Discharge Call your doctor if you observe: Fever of 101 or Higher, Inability to urinate, Chest pain Remove Dressing in (days):: 3 Cleanse incision/area with: Soap & Water Allergies/Adverse Reactions: Allergies No Known Allergies Allergy (Verified 09/27/20 08:12) Medications to take at Discharge carvedilol 6.25 mg tablet 6.25 mg PO BID 07/15/20 omeprazole 40 mg capsule,delayed release 40 mg PO DAILY 07/15/20 tamsulosin 0.4 mg capsule 0.4 mg PO DAILY #90 cap 08/15/20 losartan 50 mg tablet 50 mg PO DAILY #90 tablet 09/05/20 Primary Care Physician: Roberto Wing MD [Primary Care Provider] - Test Results: Test results from this visit will be discussed in further detail at your follow- up appointment, if applicable. Please Follow Up With: ellen 19 October
--- NOTE | 2020-10-08 12:39 | DS.PCM_ITS ---
Discharge Date and Diagnosis Date of Admission: 10/06/20 Date of Discharge: 10/08/20 - Secondary Discharge Diagnosis Chronic Problems: Chronic Problems (Last Reviewed 08/31/20 @ 14:[address] 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) Chronic back pain (Chronic) Hospital Course and Treatment Summary of Care Provided: The patient is a 80 year old M [] - Physical Exam Vitals/I&O's: Vital Signs Temp Pulse Resp BP Pulse Ox 98.4 F 110 H 18 98/63 94 10/08/20 08:12 10/08/20 11:02 10/08/20 11:02 10/08/20 11:02 10/08/20 11:02 Oxygen Flow Rate (L/min) 2 Oxygen Delivery Method Room Air Weight: 152 lb 12.485 oz Body Mass Index (BMI) 23.2 Intake and Output for Last 24 Hours 10/06/20 10/07/20 10/08/20 23:59 23:59 23:59 Intake Total 1385.33 / 1385.33 2276.67 / 2726.67 1489.33 / 1489.33 Output Total 1750 / 1750 2595 / 3170 1650 / 1650 Balance -364.67 / -364.67 -318.33 / -443.33 -160.67 / -160.67 Laboratory Results 10/08/20 08:08: WBC 9.4, RBC 3.35 L, Hgb 10.6 L, Hct 31.6 L, MCV 94.3 H, MCH 31.6, MCHC 33.5, RDW Std Deviation 50.3 H, RDW Coeff of Tea 14.4, Plt Count 200, MPV 8.8, Immature Gran % (Auto) 0.400, Neut % (Auto) 63.6, Lymph % (Auto) 20.9, Gregory % (Auto) 13.7 H, Eos % (Auto) 1.0, Baso % (Auto) 0.4, Absolute Neuts (auto) 6.0, Absolute Lymphs (auto) 1.97, Nucleated RBC % 0 10/08/20 08:08: Sodium 135 L, Potassium 3.5, Chloride 100, Carbon Dioxide 29.0, Anion Gap 6, BUN 10, Creatinine 0.56 L, Estim Creat Clear Calc 57.00, Est GFR (MDRD) Af Amer 179, Est GFR (MDRD) Non-Af 148, BUN/Creatinine Ratio 17.7, Glu cose 103, Calcium 8.6 Current Medications Carvedilol (Carvedilol 6.25 Mg Tablet) 6.25 mg PO BID [facility] Last Admin: 10/08/20 10:58 Dose: 6.25 mg Documented by: Diazepam (Diazepam 5 Mg Tablet) 5 mg PO Q6H PRN PRN PRN Reason: Muscle Spasms Dicyclomine HCl (Dicyclomine 10 Mg Capsule) 20 mg PO Q6H PRN PRN PRN Reason: abdominal discomfort Enteral Nutritional Formula (Ensure Surgery 237 Ml Liquid) 237 ml PO TIDCM [facility] Last Admin: 10/08/20 08:23 Dose: Not Given Documented by: Famotidine (Famotidine 20 Mg Tablet) 20 mg PO BID [facility] Last Admin: 10/08/20 10:58 Dose: 20 mg Documented by: Folic Acid (Folic Acid 1 Mg Tablet) 1 mg PO DAILY@0800 [facility] Stop: 10/09/20 08:01 Last Admin: 10/08/20 08:24 Dose: 1 mg Documented by: Gabapentin (Gabapentin 300 Mg Capsule) 300 mg PO Q8H PRN PRN PRN Reason: moderate to severe anxiety Hydroxyzine Pamoate (Hydroxyzine Loulou 25 Mg Capsule) 50 mg PO Q4H PRN PRN PRN Reason: mild anxiety Last Admin: 10/06/20 20:44 Dose: 50 mg Documented by: Lactated Ringer's () 1,000 mls @ 40 mls/hr IV .Q25H [facility] Last Infusion: 10/08/20 10:36 Dose: Infused Documented by: Sodium Chloride () 250 mls @ 15 mls/hr IV .[id number] PRN PRN Reason: Saline Flush Loperamide HCl (Loperamide 2 Mg Capsule) 2 mg PO Q4H PRN PRN PRN Reason: LOOSE STOOLS Lorazepam (Lorazepam 1 Mg Tablet) 2 mg PO Q2H PRN PRN; Protocol PRN Reason: CIWA score > 8 but <15 Lorazepam (Lorazepam 1 Mg Tablet) 2 mg PO UD PRN; Protocol PRN Reason: CIWA score >/=15. Lorazepam (Lorazepam 2 Mg/Ml Syringe) 2 mg IV Q2H PRN PRN; Protocol PRN Reason: CIWA score > 8 but <15 Lorazepam (Lorazepam 2 Mg/Ml Syringe) 2 mg IV UD PRN; Protocol PRN Reason: CIWA score >/=15. Losartan Potassium (Losartan Potassium 50 Mg Tablet) 50 mg PO DAILY [facility] Last Admin: 10/08/20 10:57 Dose: 50 mg Documented by: Morphine Sulfate (Morphine 4 Mg/Ml Syringe) 2 - 4 mg IV Q2H PRN PRN PRN Reason: Pain Score 6-10 Multivitamins/Minerals (Multivitamins,Ther W-Minerals Tablet) [facility] Last Admin: 10/08/20 08:23 Dose: 1 tablet Documented by: Ondansetron HCl (Ondansetron 4 Mg/2 Ml Vial) 4 mg IV Q8H PRN PRN PRN Reason: NAUSEA Ondansetron HCl (Ondansetron 8 Mg Tablet) 8 mg PO Q8H PRN PRN PRN Reason: NAUSEA Oxycodone HCl (Oxycodone 5 Mg Tablet) 2.5 - 5 mg PO Q4H PRN PRN PRN Reason: Pain Score 6-10 Last Admin: 10/08/20 08:22 Dose: 2.5 mg Documented by: Pantoprazole Sodium (Pantoprazole Sodium 40 Mg Tablet) 40 mg PO DAILY [facility] Last Admin: 10/08/20 10:57 Dose: 40 mg Documented by: Senna/Docusate Sodium (Senna/Docusate Sodium 1 Tablet) 2 tablet PO BID [facility] Last Admin: 10/08/20 10:58 Dose: Not Given Documented by: Sodium Chloride (0.9% Saline Lock 10 Ml Syringe) 10 - 40 ml IV UD PRN PRN Reason: SALINE FLUSH Last Admin: 10/08/20 05:07 Dose: 10 ml Documented by: Tamsulosin HCl (Tamsulosin Hcl 0.4 Mg Capsule) 0.4 mg PO DAILY@0830 [facility] Last Admin: 10/08/20 08:24 Dose: 0.4 mg Documented by: Thiamine HCl (Thiamine Hydrochloride 100 Mg Tablet) 100 mg PO BIDCM [facility] Stop: 10/09/20 08:01 Last Admin: 10/08/20 08:23 Dose: 100 mg Documented by: Zolpidem Tartrate (Zolpidem Tartrate 5 Mg Tablet) 5 mg PO QHS PRN PRN PRN Reason: INSOMNIA Last Admin: 10/06/20 22:06 Dose: 5 mg Documented by: Discharge Activity: May Not Drive, May Shower May resume sexual activity in: 4 weeks Weight Bearing Status: Full weight bearing Call your doctor if your incision/area has: Continuous Slow Oozing, Increased Pain/ Swelling, Foul Smelling Discharge Call your doctor if you observe: Fever of 101 or Higher, Inability to urinate, Chest pain Remove Dressing in (days):: 3 Cleanse incision/area with: Soap & Water Home Medications: Medications to take at Discharge carvedilol 6.25 mg tablet 6.25 mg PO BID 07/15/20 omeprazole 40 mg capsule,delayed release 40 mg PO DAILY 07/15/20 tamsulosin 0.4 mg capsule 0.4 mg PO DAILY #90 cap 08/15/20 losartan 50 mg tablet 50 mg PO DAILY #90 tablet 09/05/20 Primary Care Physician: Roberto Wing MD [Primary Care Provider] - Please Follow Up With: ellen 19 October Medical Necessity - Tobacco Use Smoking Status: Current every day smoker Tobacco Use: Cigarettes Meaningful Use Info Meaningful Use Diagnoses (Choose all that apply): None applicable
[2020-10-08 13:03] VITALS: BP 97/65; PULSE 100; RESP 18; TEMP 36.6; O2SAT 100
== END 2020-10-08 13:50 | disposition home or self-care (01) ==
LOC: SDC 15:07 → MS3 15:07
PROVIDERS: Anesthesiology; Internal Medicine; Admitting Provider Orthopaedic Surgery; PCP Internal Medicine; Referring Provider Orthopaedic Surgery; Visit Provider Orthopaedic Surgery
PROC: (CPT 63030; principal; 2020-10-06 07:00)
DX: M48.062 Spinal stenosis, lumbar region with neurogenic claudication (principal); I25.10 Atherosclerotic heart disease of native coronary artery without angina pectoris; K21.9 Gastro-esophageal reflux disease without esophagitis; I25.5 Ischemic cardiomyopathy; I10 Essential (primary) hypertension; F17.210 Nicotine dependence, cigarettes, uncomplicated; E78.00 Pure hypercholesterolemia, unspecified; N40.0 Benign prostatic hyperplasia without lower urinary tract symptoms; F10.20 Alcohol dependence, uncomplicated; Z79.899 Other long term (current) drug therapy; I49.9 Cardiac arrhythmia, unspecified
CPT/HCPCS: 00670; 63047; 63048 ×2; 36415; 72020; 80048; 80076; 82962; 83735; 85025; 85610; 85730; 86703; 86704; 86705; 86706; 86708; 86709; 86803; 87081; 87340; 96365; 96366; 97110; 97162; 97530; 99218; 99251; 99406; J7120; A4216; G0378; G0379; G0463; J2405

== ENCOUNTER → 2021-01-23 11:48 | Outpatient (CLI) | payer MEDICARE, SELFPAY ==
[2021-01-23 11:17] VITALS: BMI 22.6
[2021-01-23 15:29] LABS: Absolute Lymphocyte Count 1.52 X10^3/uL (0.83-4.51); Absolute Neutrophil Count 3.3 X10^3/uL (2.0-7.7); Basophil# 0.05 X10^3/uL; Basophil% 0.9 % (0-1); Eosinophil# 0.15 X10^3/uL; Eosinophils% 2.6 % (0-5); Hematocrit 38.8 % (40-54); Hemoglobin 12.7 g/dL (13.0-16.5); Lymphocyte # 1.52 X10^3/ul (0.83-4.51); Lymphocyte % 26.8 % (19-41); Mean Corp Hgb Conc 32.7 g/dL (32-36); Mean Corpuscular Hgb 28.5 pg (27.0-32.0); Mean Corpuscular Volume 87.2 fL (80-94); Mean Platelet Vol. 9.2 fl (6.2-12.0); Monocyte# 0.64 X10^3/uL; Monocyte% 11.3 % (0-10); NRBC Flagged by Analyzer 0 % (0-5); Neutrophil # 3.28 X10^3/uL (2.7-7.7); Neutrophil % 57.9 % (47-70); Platelet Count 351 K/mm3 (150-450); RBC Distribution Width SD 41.5 fl (35.1-43.9); Red Blood Count 4.45 M/mm3 (4.6-6.2); White Blood Count 5.7 K/mm3 (4.4-11.0)
[2021-01-23 15:47] LABS: Anion Gap 7 (5-15); BUN 12 mg/dL (7-18); BUN/Creat Ratio 15.6 RATIO (10-20); Calcium,Total 9.1 mg/dL (8.5-10.1); Chloride 99 mmol/L (98-107); Creatinine, Serum 0.77 mg/dL (0.70-1.30); EST Glomerular Filtration Rate 104 mL/min (>60); Est Glom Filt Rate - Afr Amer 125 mL/min (>60); Glucose 93 mg/dL (74-106); Potassium 4.4 mmol/L (3.5-5.1); Sodium Level 132 mmol/L (136-145)
== END ==
PROVIDERS: PCP Internal Medicine; Referring Provider Internal Medicine; Visit Provider Internal Medicine
DX: I10 Essential (primary) hypertension (principal)
CPT/HCPCS: 36415; 80048; 85025

== ENCOUNTER 2021-08-16 09:40 | Outpatient (CLI) | payer MEDICARE, SELFPAY ==
[2021-08-16 10:32] LABS: Absolute Lymphocyte Count 1.76 X10^3/uL (0.83-4.51); Absolute Neutrophil Count 3.8 X10^3/uL (2.0-7.7); Basophil# 0.05 X10^3/uL; Basophil% 0.7 % (0-1); Eosinophil# 0.26 X10^3/uL; Eosinophils% 3.9 % (0-5); Lymphocyte # 1.76 X10^3/ul (0.83-4.51); Lymphocyte % 26.2 % (19-41); Mean Corp Hgb Conc 33.3 g/dL (32-36); Mean Corpuscular Hgb 30.1 pg (27.0-32.0); Mean Corpuscular Volume 90.3 fL (80-94); Mean Platelet Vol. 8.7 fl (6.2-12.0); Monocyte# 0.82 X10^3/uL; Monocyte% 12.2 % (0-10); NRBC Flagged by Analyzer 0 % (0-5); Neutrophil % 56.7 % (47-70); Platelet Count 251 K/mm3 (150-450); RBC Distribution Width CV 13.9 % (11.6-14.6); RBC Distribution Width SD 46.3 fl (35.1-43.9); Red Blood Count 4.32 M/mm3 (4.6-6.2); White Blood Count 6.7 K/mm3 (4.4-11.0)
[2021-08-16 11:18] LABS: AST(SGOT) 20 U/L (15-37); Alanine Aminotransfer ALT/SGPT 22 U/L (16-61); Albumin, Serum 3.6 g/dL (3.2-5.0); Alkaline Phosphatase 86 U/L (45-117); Anion Gap 4 (5-15); BUN 20 mg/dL (7-18); BUN/Creat Ratio 25.5 RATIO (10-20); Calcium,Total 8.8 mg/dL (8.5-10.1); Chloride 98 mmol/L (98-107); Cholesterol 169 mg/dL (200); Creatinine, Serum 0.78 mg/dL (0.70-1.30); EST Glomerular Filtration Rate 101 mL/min (>60); Est Glom Filt Rate - Afr Amer 122 mL/min (>60); Globulin 3.6 g/dL (2.2-4.2); Glucose 83 mg/dL (74-106); High Density Lipoprotein 60 mg/dL; Potassium 4.6 mmol/L (3.5-5.1); Protein, Total 7.2 g/dL (6.4-8.2); Sodium Level 130 mmol/L (136-145); Triglycerides 63 mg/dL; Very Low Density Lipoprotein 13 mg/dL (5-40)
== END 2021-08-16 23:59 | disposition home or self-care (01) ==
LOC: BIMLAB 09:40
PROVIDERS: PCP Internal Medicine; Referring Provider Internal Medicine; Visit Provider Internal Medicine
DX: I10 Essential (primary) hypertension (principal)
CPT/HCPCS: 36415; 80053; 80061; 85025

== ENCOUNTER → 2021-11-15 | Outpatient (CLI) | payer MEDICARE, SELFPAY ==
--- NOTE | 2021-11-15 15:00 | RAD_ITS ---
STUDY: X-RAY CHEST REASON FOR EXAM: Male, 81 years old. Chronic nonproductive cough TECHNIQUE: PA and lateral views of the chest. COMPARISON: None. FINDINGS: The lungs are mildly hyperexpanded with chronic interstitial changes, no superimposed acute pulmonary process. There is no demonstrated pleural abnormality. Normal size heart. Normal mediastinum and todd. Normal visualized pulmonary arteries. There is atherosclerotic calcification of the aortic arch with tortuosity. There are diffuse degenerative changes of the visualized thoracic spine. Old healed right rib fractures There is no demonstrated abnormality of the visualized soft tissue structures of the upper abdomen. RAD/Chest PA and Lateral IMPRESSION: Mildly hyperexpanded lungs with chronic interstitial changes, no superimposed acute pulmonary process Electronically Signed: Faraz Omer MD at 15:16 EDT ,
[2021-11-15 17:29] LABS: Anion Gap 7 (5-15); BUN 18 mg/dL (7-18); BUN/Creat Ratio 20.2 RATIO (10-20); Calcium,Total 9.3 mg/dL (8.5-10.1); Chloride 99 mmol/L (98-107); Creatinine, Serum 0.89 mg/dL (0.70-1.30); EST Glomerular Filtration Rate 87 mL/min (>60); Est Glom Filt Rate - Afr Amer 105 mL/min (>60); Glucose 87 mg/dL (74-106); Potassium 4.2 mmol/L (3.5-5.1); Sodium Level 132 mmol/L (136-145)
== END | disposition home or self-care (01) ==
PROVIDERS: PCP Internal Medicine; Referring Provider Internal Medicine; Visit Provider Internal Medicine
DX: I10 Essential (primary) hypertension (principal); J44.9 Chronic obstructive pulmonary disease, unspecified; R05.3 Chronic cough
CPT/HCPCS: 36415; 71046; 80048

== ENCOUNTER → 2021-11-22 | Outpatient (CLI) | payer MEDICARE, SELFPAY ==
--- NOTE | 2021-11-22 14:45 | PFTCOMP ---
COMPLETE PULMONARY FUNCTION TEST INTERPRETATION Brief HPI: Patient is an 81-year-old male, currently under the care of Dr. Wing, who presents to [facility] for complete pulmonary function tests secondary to diagnosis of chronic cough. Respiratory therapist reports good effort and reproducible results. Interpretation: Forced expiration spirometry shows a moderate large airways obstructive ventilatory defect with an FEV1 of 67% predicted. There is a significant bronchodilator response in FVC and FEV1 by strict ATS criteria. Spirograms are of good quality and plateau slowly, indicating slowly emptying areas of the lungs. The respiratory flow volume loop shows decreased expiratory flow rates at all lung volumes consistent with airway obstruction. Lung volumes by body plethysmography show a normal total lung capacity at 4.87 L, 87% predicted. All other lung volumes are within normal limits. Diffusion capacity by carbon monoxide is normal at 78% predicted. The airway resistance is elevated. No previous pulmonary function tests were available for review. Impression: Partially reversible moderate large airways obstructive ventilatory defect with a symmetric reduction diffusing capacity, in a pattern consistent with COPD/asthma overlap syndrome.
== END | disposition home or self-care (01) ==
LOC: PSN 09:16
PROVIDERS: PCP Internal Medicine; Referring Provider Internal Medicine; Visit Provider Internal Medicine
DX: R05.3 Chronic cough (principal); J44.9 Chronic obstructive pulmonary disease, unspecified
CPT/HCPCS: 94060; 94726; 94729

== ENCOUNTER 2022-01-29 07:46 | Day surgery (SDC) | payer MEDICARE, SELFPAY ==
--- NOTE | 2022-01-23 10:43 | EKG12_ITS ---
Test Reason : PREOP Blood Pressure : / mmHG Vent. Rate : 073 BPM Atrial Rate : 073 BPM P-R Int : 154 ms QRS Dur : 098 ms QT Int : 404 ms P-R-T Axes : 075 056 050 degrees QTc Int : 445 ms Normal sinus rhythm Normal ECG Confirmed by ALBARO PANTOJA, RONAL ([id number]), video effects editor JOHNIE DOVER [id number]) on 01/24/2022 12:50:40 PM Referred By: Edvin Cannon Confirmed By:RONAL IRVIN MD
[2022-01-23 11:42] LABS: Hematocrit 41.1 % (40-54); Hemoglobin 13.7 g/dL (13.0-16.5); Mean Corp Hgb Conc 33.3 g/dL (32-36); Mean Corpuscular Hgb 30.3 pg (27.0-32.0); Mean Corpuscular Volume 90.9 fL (80-94); Mean Platelet Vol. 8.8 fl (6.2-12.0); Platelet Count 255 K/mm3 (150-450); RBC Distribution Width CV 14.5 % (11.6-14.6); RBC Distribution Width SD 48.4 fl (35.1-43.9); Red Blood Count 4.52 M/mm3 (4.6-6.2); White Blood Count 7.3 K/mm3 (4.4-11.0)
[2022-01-23 12:31] LABS: Anion Gap 5 (5-15); BUN 14 mg/dL (7-18); BUN/Creat Ratio 15.5 RATIO (10-20); Chloride 98 mmol/L (98-107); EST Glomerular Filtration Rate 86 mL/min (>60); Est Glom Filt Rate - Afr Amer 104 mL/min (>60); Glucose 90 mg/dL (74-106); Potassium 4.2 mmol/L (3.5-5.1); Sodium Level 131 mmol/L (136-145)
[2022-01-23 12:36] LABS: Prothrombin Time (Protime)PT. 13.3 SECONDS (11.7-14.9)
[2022-01-23 12:37] LABS: Partial Thromboplast Time 36.7 Seconds (24.1-36.2)
[2022-01-23 12:57] LABS: AST(SGOT) 23 U/L (15-37); Alanine Aminotransfer ALT/SGPT 20 U/L (16-61); Albumin, Serum 3.7 g/dL (3.2-5.0); Alkaline Phosphatase 97 U/L (45-117); Globulin 3.8 g/dL (2.2-4.2); Protein, Total 7.5 g/dL (6.4-8.2)
[2022-01-29] VITALS (7 sets, daily range): BP systolic 135–151; BP diastolic 75–90; PULSE 65–80; RESP 16; TEMP 36.3–37.3; O2SAT 92–97; BMI 23.5
[2022-01-29] MEDS: Lactated Ringers 1,000 ML 15 ML IV (08:15)
--- NOTE | 2022-01-29 09:28 | PCM.HP.BLA ---
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 Required: No Is patient in pain?: No Allergies No Known Allergies Allergy (Verified 01/11/22 09:15) Medications omeprazole 40 mg capsule,delayed release 40 mg PO DAILY #90 caps 03/29/21 [Rx Confirmed 01/11/22] losartan 50 mg tablet 50 mg PO DAILY #90 tabs 08/16/21 [Rx Confirmed 01/11/22] tamsulosin 0.4 mg capsule 0.4 mg PO DAILY #90 caps 08/16/21 [Rx Confirmed 01/11/22] albuterol sulfate 90 mcg/actuation aerosol inhaler (ProAir HFA) 2 puff inhalation Q6H PRN shortness of breath or wheezing #8.5 grams 10/31/21 [Rx Confirmed 01/11/22] budesonide-formoterol HFA 160 mcg-4.5 mcg/actuation aerosol inhaler (Symbicort) 2 puff inhalation Q12H #10.2 grams 11/22/21 [Rx Confirmed 01/11/22] carvedilol 3.125 mg tablet 3.125 mg PO BID #180 tabs 12/04/21 [Rx Confirmed 01/11/22] Handicap Placard #1 ea 12/29/21 [Rx Confirmed 01/11/22] PFSH Medical History? Abdominal aortic aneurysm (AAA) Alcohol abuse Atherosclerotic heart disease of [place] coronary artery without angina pectoris Back problem Bone fracture BPH (benign prostatic hyperplasia) Cataract Cellulitis of scrotum Chronic back pain Chronic cough COPD (chronic obstructive pulmonary disease) COVID-19 vaccine series completed Essential (primary) hypertension Fecal urgency Gastric ulcer GERD (gastroesophageal reflux disease) GI problem Headache, migraine History of RSV infection Iliac artery aneurysm, right Ischemic cardiomyopathy Nicotine dependence Right inguinal hernia Scrotal abscess Seasonal allergies Spinal stenosis of lumbar region with neurogenic claudication Syncope Vision problem Surgical History? History of back surgery History of endovascular stent graft for abdominal aortic aneurysm (AAA) (12/11/13) History of left heart catheterization (11/11/13) Rupture of biceps tendon Family History?(Updated 01/11/22 @ 09:11 by Jumana Saturday) Grandfather CancerFather Brain aneurysmDaughter Hypertension Social History? Smoking Status:? Current every day smoker Tobacco: How many years used:? 62 alcohol intake:? current alcohol intake frequency: 3 or more drinks per day Alcohol type: beer substance use type:? does not use what type of physical activity do you participate in:? none HPI HPI HPI: CHITO CORDON, is a 81 M who presents to the office today for surgical consultation regarding a suspected right inguinal hernia.? The patient is being referred by Dr. Roberto Wing and a written copy my surgical consult recommendations will return to her.? The patient presented to her with a complaint of swelling of the right groin that is started after a severe coughing episode that he had a few months prior.? He does carry a history of COPD.? This likely has exacerbated his inguinal hernia complaints and now is assisting with making it more symptomatic. The patient has COPD.? He has recently been prescribed an additional inhaler.? He states he does not require home oxygen.? The right inguinal hernia though was sudden on onset and is quite uncomfortable.? Although he has ongoing COPD he is an ongoing cigarette smoker and he admits that he is not interested in stopping. ROS General General: No weight change, appetite, fatigue, colon cancer, breast cancer or weakness HEENT HEENT: No difficulty swallowing, eye injury, eye surgery, swollen glands or hoarseness Endo Endocrine: No thyroid disease, diabetes mellitus, thyroid cancer, Hair loss, heat intolerance or cold intolerance Skin Skin: No rash or changing moles Musc Musculoskeletal: No back problems, arthritis, rheumatoid arthritis, gout or joint pain Cardio Cardiovascular: No murmur, pacemaker, heart disease, atrial fibrillation, high blood pressure, heart attack, heart stent, palpitations, shortness of breat with exertion or chest pain Psych Psychiatric: No depression, anxiety or hearing voices Resp Respiratory: Yes shortness of breath, No sleep apnea, No cough, Yes COPD, No asthma, No emphysema and No wheezing Gastro Gastrointestinal: No abdominal pain, No nausea or vomiting, No diarrhea, No constipation, No blood in stool, Yes acid reflux, No hemorrhoids, No ulcers, No gallbladder problem and No black,tarry stools Justin Hematologic: No blood thinners, No blood disorders, No bleeding, No anemia and No blood clots Neuro Neurologic: No system reviewed and no additional complaints, except as documented, No as per HPI, No abnormal gait, No abnormal hearing, No abnormal movements, No abnormal speech, No behavioral changes, No burning sensations, No confusion, No convulsions, No disequilibrium, No dizziness, No localized weakness, No frequent falls, No headache(s), No lack of coordination, No loss of vision, No memory loss, No numbness, No other visual disturbances, No radicular pain, No restless legs, No sensory deficit, No syncope, No tingling, No tremor(s), No weakness and No other Exam Const General: cooperative and no acute distress Nutritional Appearance: underweight Orientation: alert and awake Other: Patient somewhat jittery.? Slightly unstable. HENUT Head: normal to inspection Eyes General: appearance normal, both eyes and all related structures Neck Neck: normal visual inspection Chest Other: Notably increased anterior posterior diameter Resp Auscultation: clear to auscultation bilaterally Other: Diminished respiratory excursion, use of accessory muscles noted Cardio Rate: regular rate Rhythm: regular rhythm GI Palpation: soft and no hepatosplenomegaly Auscultation: normal bowel sounds Other: Testicles are descended.? Atrophic.? Significant right inguinal hernia.? Tender to attempts at reduction. Skin Other: Generalized thin skin.? Diffuse areas of ecchymosis Neuro General: patient alert and patient awake Cognition: normal cognition Other: Unsteady gait, correction for balance noted, no use of cane or walker however Extrem Other: Muscle atrophy noted Psych Other: Patient is aware of his situation in place.? He does note physical health decline.? The symptomatic right inguinal hernia however is of concern. Assessment and Plan Assessment and Plan (1) Hernia: (2) Right inguinal hernia: ?Status:?Chronic ?Plan: Symptomatic right inguinal hernia.? Patient with medical comorbidities. I have vigorously encouraged the patient to cease his tobacco use.? As noted he does not have an interested attempting this. He has a symptomatic right inguinal hernia.? I propose for him a Yoel right inguinal herniorrhaphy performed with monitored anesthesia care and local anesthetic.? He is at perioperative risk secondary to his chronic pulmonary disease and ongoing tobacco use.? He is aware that there will be potentially compromised wound healing and increased risk of wound infection and increased risk of recurrence.? He has had an opportunity to ask and have questions answered.? We will schedule and proceed at his discretion. I appreciate the opportunity of assisting with the surgical care Copy: Dr. Roberto Cannon M.D., F.A.C.S I have re-examined the patient. There are no clinical changes since date of exam. Edvin Cannon M.D., F.A.C.S.
--- NOTE | 2022-01-29 10:00 | LIP_PTH ---
PATIENT: CHITO [place]ORDON [place] [facility] [id number] AGE/SX: 81/M ROOM: RE01/29/[address]: Dr. Edvin Cannon MD : 1940 BED: DIS: 01/29/2022 SPEC #: [id number] RECD: 01/29/22 14:12 STATUS: AMY WELCH #: [id number] BUSTER: 01/29/22 10:[address]: Edvin Cannon DEPT: SURGICAL PATHOLOGY RECD BY: Thalia Mckeon ENTERED: 01/30/22 08:08 SP TYPE: LIPOMA OTHR DR: Dr. Roberto Wing MD Tissues: A - Soft tissues, NOS B - HERNIA Procedures: Surgery Specimen Level II Surgery Specimen Level III HEADER OPERATION: Hernia, inguinal with mesh PRE-OP DIAGNOSIS: Hernia, right inguinal hernia TISSUE SUBMITTED: A. Cord lipoma, B. Hernia MICROSCOPIC DIAGNOSIS A. Cord lipoma, excision: Mature adipose tissue consistent with cord lipoma. B. Hernia, herniorrhaphy: Fibrosis and mild chronic inflammation. AM:am 01/31/2022 MICROSCOPIC DESCRIPTION Slides are reviewed. GROSS DESCRIPTION A. Received in fixative is one container labeled with the patient name and designated lipoma. The specimen consists of an irregular piece of adipose tissue measuring 6 x 2 x 1 cm. Sections reveal yellow adipose cut surfaces without areas of hemorrhage, necrosis or cystic degeneration. Mobility Developer sections are submitted in one cassette. B. Received in fixative is one container labeled with the patient's name and designated hernia?. The specimen consists of a piece of fibromembranous sac measuring 4.5 x 1 x 1 cm. Section do not reveal any mass lesions. Mobility Developer sections are submitted in one cassette. / SJ:maryana 01/30/22 TC:3 CPT:84125,07174
--- NOTE | 2022-01-29 10:20 | DCINST_ITS ---
Discharge Instructions Procedure General Surgery Diet Discharge Diet: Light diet - advance as tolerated (if you have questions about your diet instructions, please talk to you doctor.) Activity Discharge Activity: May Not Drive (for 3-5 days or while taking narcotic pain medicine.) May shower in (days): 1 Lifting Restrictions: 10 pounds Dressing / Incision Call your doctor if your incision/area has: Continuous Slow Oozing, Sudden Increased Bleeding, Increased Pain/ Swelling, Increased Redness and Foul Smelling Discharge Call your doctor if you observe: Fever of 101 or Higher Suture Line Care: Avoid Pulling/Pushing and Avoid Pinching/Bending Additional Dressing/Incision Instructions:: Change or remove dressing in 4 days. Leave steri-strips in place for 1 week. Follow Up Care Please Follow Up With: Edvin Cannon MD When: Call [phone] to make an appointment to be seen in about 10 days. Test Results: Test results from this visit will be discussed in further detail at your follow- up appointment, if applicable. Discharge Plan Admission Attending Provider: Edvin Cannon Primary Care Provider: Roberto Wing Discharge Orders/Prescriptions Prescriptions: No Action losartan 50 mg tablet 50 mg PO DAILY Qty: 90 3RF (DME) Handicap Placard See Rx Instructions .ROUTE .MEDSUPPLY Qty: 1 0RF Rx Instructions: As directed, length of time 3 years albuterol sulfate [ProAir HFA] 90 mcg/actuation HFA aerosol inhaler 2 puff inhalation Q6H PRN (Reason: shortness of breath or wheezing) Qty: 8.5 3RF tamsulosin 0.4 mg capsule 0.4 mg PO QHS omeprazole 40 mg capsule,delayed release(DR/EC) 40 mg PO DAILY Qty: 90 1RF budesonide-formoterol [Symbicort] 160-4.5 mcg/actuation HFA aerosol inhaler 2 puff inhalation Q12H Qty: 10.2 2RF carvedilol 3.125 mg tablet 3.125 mg PO BID Qty: 180 3RF Rx Instructions: must administer with a meal/food Other Ambulatory Orders: 12 Lead EKG (Routine) Timeframe: [id number] Location: None Selected Ordered By: Dr. Edvin Cannon Referrals / Follow Up: Roberto Wing MD [Primary Care Provider] - Disposition Disposition (needs filled in before D/C Order can be placed): Home, Self Care
[2022-01-29] MEDS: Cefazolin 2 GM in 0.9% Normal Saline 100 ML IV (10:24)
[2022-01-29] MEDS: Lidocaine 1% (20 ml mdv) 20 ML Vial (11:44)
[2022-01-29] MEDS: Bupivacaine 0.25% 30 ML Vial (11:44)
--- NOTE | 2022-01-29 11:44 | OP.PCM_ITS ---
Report of Operation Date of Procedure: 01/29/22 Pre-Operative Diagnosis: Symptomatic right inguinal hernia Post-Operative Diagnosis: Symptomatic indirect right inguinal hernia with cord lipoma Surgery/Procedure Performed:: Yoel right inguinal herniorrhaphy with excision of cord lipoma Description of Surgical Findings:: Timeout informed consent was obtained. 81-year-old gentleman was taken to the operating placed on the table underwent monitored anesthesia care. Ancef 2 g were given to venously. The right groin was sterilely prepped and draped. 1% lidocaine mixed 50-50 with 0.25% Marcaine was used as a local anesthetic. Th roughout the procedure a total of 20 cc was used. Local was instilled a transverse incision made in the right groin sharp dissection carried down through the subcutaneous tissue the external bleak was identified it was incised along with the fascial nerve identified and protected circumferential control was obtained of the cord structures tedious sharp and blunt dissection was performed indirect sac was identified this was freed and the cord lipoma was identified the cord lipoma was transected with hemostasis attained electrocautery the indirect sac was completely freed to the internal ring. The inguinal nerve had been carefully protected away during this dissection. There were no contents current within the sac the sac was twisted was ligated with 3-0 Vicryl's portion of the sac was amputated the remainder was inverted. The transversalis fascia was then approximated from the pubic tubercle to the internal ring with a running 3-0 Ethibond suture. The internal ring was reapproximated. A keyhole Bard mesh was placed around the internal ring and secured laterally with 3-0 Ethibond the tails were trimmed and then the mesh was placed was nicely covered the direct indirect space. The mesh was secured to the pubic tubercle with interrupted 3-0 Ethibond and was secured to the aponeurosis of the internal/external bleak with the same and to the shelving edge of [place] with the same. There appeared to be very nice coverage of the defect. The mesh appeared to have a good positional lie. The external bleak was proximal with a running 3-0 Vicryl. Skin edges were approximated running subicular 4 Monocryl. Steri-Strips Telfa OpSite dressings applied. Sponge and instrument and needle counts reported the surgeon to be correct. Specimen cord lipoma and hernia sac. Drains none. Blood loss minimal. The patient was taken to recovery room in status or condition without burn complication Edvin Cannon M.D., F.A.C.S. Surgeon: Edvin Cannon Type of Anesthesia: Local MAC Anesthesiologist: Roland Graham
== END 2022-01-29 13:03 | disposition home or self-care (01) ==
LOC: SDC 07:47 → AC 07:48
PROVIDERS: Anesthesiology; PCP Internal Medicine; Referring Provider Surgery; Visit Provider Surgery
PROC: (CPT 49505; principal; 2022-01-29 09:45)
DX: K40.90 Unilateral inguinal hernia, without obstruction or gangrene, not specified as recurrent (principal); J44.9 Chronic obstructive pulmonary disease, unspecified; I25.10 Atherosclerotic heart disease of native coronary artery without angina pectoris; I10 Essential (primary) hypertension; I25.5 Ischemic cardiomyopathy; N40.0 Benign prostatic hyperplasia without lower urinary tract symptoms; K21.9 Gastro-esophageal reflux disease without esophagitis; F17.200 Nicotine dependence, unspecified, uncomplicated; Z79.899 Other long term (current) drug therapy
CPT/HCPCS: 49505; 00830; 36415; 80048; 80076; 85027; 85610; 85730; 88302; 88304; 93005; J7120; C1781; J2405

== ENCOUNTER → 2022-09-26 | Outpatient (CLI) | payer MEDICARE, SELFPAY ==
[2022-09-26 15:26] LABS: Absolute Lymphocyte Count 1.87 X10^3/uL (0.83-4.51); Absolute Neutrophil Count 6.7 X10^3/uL (2.0-7.7); Basophil# 0.06 X10^3/uL; Basophil% 0.6 % (0-1); Eosinophil# 0.18 X10^3/uL; Eosinophils% 1.8 % (0-5); Hematocrit 37.9 % (40-54); Hemoglobin 12.3 g/dL (13.0-16.5); Lymphocyte # 1.87 X10^3/ul (0.83-4.51); Mean Corp Hgb Conc 32.5 g/dL (32-36); Mean Corpuscular Hgb 28.7 pg (27.0-32.0); Mean Corpuscular Volume 88.6 fL (80-94); Mean Platelet Vol. 9.2 fl (6.2-12.0); Monocyte# 1.02 X10^3/uL; Monocyte% 10.4 % (0-10); NRBC Flagged by Analyzer 0 % (0-5); Neutrophil # 6.66 X10^3/uL (2.7-7.7); Neutrophil % 67.8 % (47-70); Platelet Count 335 K/mm3 (150-450); RBC Distribution Width SD 45.2 fl (35.1-43.9); Red Blood Count 4.28 M/mm3 (4.6-6.2); White Blood Count 9.8 K/mm3 (4.4-11.0)
[2022-09-26 16:02] LABS: AST(SGOT) 22 U/L (15-37); Alanine Aminotransfer ALT/SGPT 26 U/L (16-61); Albumin, Serum 3.6 g/dL (3.2-5.0); Alkaline Phosphatase 133 U/L (45-117); Anion Gap 6 (5-15); BUN 15 mg/dL (7-18); BUN/Creat Ratio 19.9 RATIO (10-20); Chloride 101 mmol/L (98-107); Cholesterol 157 mg/dL (200); Creatinine, Serum 0.75 mg/dL (0.70-1.30); EST Glomerular Filtration Rate 106 mL/min (>60); Est Glom Filt Rate - Afr Amer 128 mL/min (>60); Globulin 3.6 g/dL (2.2-4.2); Glucose 108 mg/dL (74-106); High Density Lipoprotein 64 mg/dL; PSA,Total - Annual Screen 3.59 ng/mL (0.00-4.00); Potassium 3.8 mmol/L (3.5-5.1); Protein, Total 7.2 g/dL (6.4-8.2); Sodium Level 132 mmol/L (136-145); Triglycerides 90 mg/dL; Very Low Density Lipoprotein 18 mg/dL (5-40)
== END | disposition home or self-care (01) ==
LOC: BIMLAB 13:37
PROVIDERS: PCP Internal Medicine; Referring Provider Internal Medicine; Visit Provider Internal Medicine
DX: Z12.5 Encounter for screening for malignant neoplasm of prostate (principal); N40.0 Benign prostatic hyperplasia without lower urinary tract symptoms; I10 Essential (primary) hypertension; M54.9 Dorsalgia, unspecified; G89.29 Other chronic pain
CPT/HCPCS: 36415; 80053; 80061; 84153; 85025; G0103

== ENCOUNTER 2022-12-06 13:48 | Inpatient (IN) | payer MEDICARE, SELFPAY ==
[2022-12-06 13:48] VITALS: BP 167/101; PULSE 84; RESP 18; TEMP 36.6; O2SAT 98
--- NOTE | 2022-12-06 14:09 | EX.ED.GENINJ ---
HPI History of Present Illness Chief Complaint: Fall Narrative Narrative: 82-year-old male presenting with right hip pain. He states that he has had trouble with his right hip for some time. He states it catches. He states yesterday he went to step forward and his right hip caught and he fell down. He feels like his legs were tangled. He landed on his right hip. He has abrasion to the right elbow. Patient denies head injury or LOC. Patient states he has not ambulated since that time. Is been laying on the couch. Patient does have history of abdominal aortic aneurysm and iliac artery aneurysm. He has had his abdominal aortic aneurysm grafted. He denies numbness in the right leg. Patient has history of claudication. [facility] Medical History Abdominal aortic aneurysm (AAA) Alcohol abuse Atherosclerotic heart disease of [place] coronary artery without angina pectoris Back problem Bone fracture BPH (benign prostatic hyperplasia) Cataract Cellulitis of scrotum Chronic back pain Chronic cough COPD (chronic obstructive pulmonary disease) COVID-19 vaccine series completed Easy bruising Essential (primary) hypertension Fecal urgency Gastric ulcer GERD (gastroesophageal reflux disease) History of echocardiogram History of RSV infection History of stress test History of ulceration Hoarseness Iliac artery aneurysm, right Ischemic cardiomyopathy Macular degeneration Nicotine dependence Right inguinal hernia Scrotal abscess Seasonal allergies Smoker Spinal stenosis of lumbar region with neurogenic claudication Syncope Vision problem Wears dentures Home Medications Handicap Havenard #1 ea 12/29/21 [Rx Last Taken Unknown] albuterol sulfate 90 mcg/actuation aerosol inhaler (ProAir HFA) 2 puff inhalation Q6H PRN shortness of breath or wheezing #8.5 grams 09/26/22 [Rx Last Taken Unknown] budesonide-formoterol HFA 160 mcg-4.5 mcg/actuation aerosol inhaler (Symbicort) 2 puff inhalation Q12H COPD 12/06/22 [History Last Taken 12/06/22] carvedilol 3.125 mg tablet 3.125 mg PO DAILY HEART 12/06/22 [History Last Taken 12/06/22] losartan 50 mg tablet 50 mg PO DAILY BLOOD PRRESSURE 12/06/22 [History Last Taken 12/06/22] omeprazole 40 mg capsule,delayed release 40 mg PO DAILY ACID REFLUX 12/06/22 [History Last Taken 12/06/22] tamsulosin 0.4 mg capsule 0.8 mg PO QHS PROSTATE 12/06/22 [History Last Taken 12/05/22] Allergy/AdvReac Type Severity Reaction Status Date / Time No Known Allergies Allergy Verified 09/26/22 13:04 Family History Grandfather Cancer Father Brain aneurysm Daughter Hypertension Surgical History History of back surgery History of colonoscopy History of endovascular stent graft for abdominal aortic aneurysm (AAA) (12/11/13) History of esophagogastroduodenoscopy (EGD) History of left heart catheterization (11/11/13) History of right inguinal hernia repair Rupture of biceps tendon Social History Smoking Status: Current every day smoker tobacco type: cigarettes Tobacco: How many years used: 62 alcohol intake: current alcohol intake frequency: 3 or more drinks per day Alcohol type: beer substance use type: does not use what type of physical activity do you participate in: none ROS ROS ED Constitutional Constitutional ED: Denies chills or fever(s) Eyes Eyes: Denies blurry vision or change in vision ENT ENT ED: Denies ear pain or rhinorrhea Cardiovascular Cardiovascular: Denies chest pain or palpitations Respiratory/Chest Respiratory/Chest: Denies cough or dyspnea Gastrointestinal Gastrointestinal: Denies abdominal pain, constipation or nausea Genitourinary Genitourinary ED: Denies dysuria or hematuria Musculoskeletal Musculoskeletal: Reports other Details: Right hip pain Integumentary Denies abscess or Abrasions Neurologic Neurologic: Denies headache(s) or paresthesias EXAM Physical Exam Const Vital Signs: 12/06/22 13:48 12/06/22 14:01 Temperature 97.8 F Temperature Source Temporal Pulse Rate 84 Respiratory Rate 18 Respiratory Effort Normal Respiratory Depth Normal Respiratory Pattern Normal Blood Pressure 167/101 H Blood Pressure Mean 123 Pulse Ox 98 Oxygen Delivery Method Room Air Negative for well nourished General Appearance ED: Negative for NAD HEENT Negative for atraumatic or trauma Eyes Negative for PERRL or EOMs intact bilaterally Chest Wall inspection of chest normal Resp normal respiratory effort and clear to auscultation bilaterally Auscultation: Negative for rales, rhonchi or wheezes Cardio regular rhythm GI normal to inspection, nondistended, normoactive bowel sounds Extremity Extremity Narrative: Tenderness over right greater trochanter. Positive logroll. No shortening or external rotation. Right lower extremity neurovascular intact. Neuro oriented x3 and CN's II-XII intact bilaterally Skin no rashes or lesions noted MDM MDM MDM Narrative Medical decision making narrative: Patient presenting with right hip pain sounds mechanical. He did not hit his head or have LOC. X-ray of the right hip on my interpretation shows a subcapital fracture. Radiology interprets this and agrees. Discussed it with Dr. Vázquez who is in agreement as well. Patient will be admitted for surgery. CBC and BMP unremarkable. Discussed with hospitalist for admission. Impression: 1. Right hip fracture 2. Mechanical fall Lab Data Attestation: I reviewed the patient's lab results. Labs: Laboratory Results - last 24 hr 12/06/22 12/06/22 14:32 15:25 WBC 10.1 RBC 4.17 L Hgb 11.8 L Hct 35.2 L MCV 84.4 MCH 28.3 MCHC 33.5 RDW Std Deviation 48.3 H RDW Coeff of Tea 15.8 H Plt Count 237 MPV 8.7 Immature Gran % (Auto) 0.300 Neut % (Auto) 68.4 Lymph % (Auto) 17.6 L Callahan % (Auto) 13.4 H Eos % (Auto) 0.1 Baso % (Auto) 0.2 Absolute Neuts (auto) 6.9 Absolute Lymphs (auto) 1.78 Nucleated RBC % 0 Sodium 131 L Potassium 3.9 Chloride 99 Carbon Dioxide 23.0 Anion Gap 9 BUN 12 Creatinine 0.82 Est GFR (MDRD) Af Amer 116 Est GFR (MDRD) Non-Af 96 BUN/Creatinine Ratio 14.7 Glucose 121 H Calcium 9.4 Total Bilirubin 1.20 H AST 16 ALT 21 Alkaline Phosphatase 97 Total Protein 7.5 Albumin 3.7 Globulin 3.8 Albumin/Globulin Ratio 1.0 Radiography Diagnostic Testing: Clinical Impression(s) from Imaging Studies Hip/Pelvis X-Ray 12/06/22 14:15 IMPRESSION: There are findings concerning for right subcapital fracture. Electronically Signed: Christopher Gutierrez MD at 14:52 EDT , Discharge Plan Triage Chief Complaint: Fall ED Provider: Jean Merchant Dx/Rx/DC Orders Prescriptions: No Action (DME) Handicap Ming See Rx Instructions .ROUTE .MEDSUPPLY Qty: 1 0RF Rx Instructions: As directed, length of time 3 years albuterol sulfate [ProAir HFA] 90 mcg/actuation HFA aerosol inhaler 2 puff inhalation Q6H PRN (Reason: shortness of breath or wheezing) Qty: 8.5 3RF losartan 50 mg tablet 50 mg PO DAILY omeprazole 40 mg capsule,delayed release(DR/EC) 40 mg PO DAILY carvedilol 3.125 mg tablet 3.125 mg PO DAILY tamsulosin 0.4 mg capsule 0.8 mg PO QHS budesonide-formoterol [Symbicort] 160-4.5 mcg/actuation HFA aerosol inhaler 2 puff inhalation Q12H Primary Care Provider: Roberto Wing Referrals: Roberto Wing MD [Primary Care Provider] -
--- NOTE | 2022-12-06 14:15 | RAD_ITS ---
EXAM: XR RIGHT HIP WITH PELVIS WHEN PERFORMED, 2 OR 3 VIEWS CLINICAL INDICATION: pain right hip pain after fall. TECHNIQUE: Two or three views of the right hip with pelvis when performed. COMPARISON: No relevant prior studies available. FINDINGS: BONES/JOINTS: There are findings concerning for right subcapital fracture. Degenerative change of the hips and lumbar spine. No destructive or sclerotic lesions. Note that overlapping bowel shadows may however obscure fine detail. Sacroiliac joint is unremarkable. No widening of the pubic symphysis. SOFT TISSUES: Unremarkable. No soft tissue swelling or gas. VASCULATURE: Embolic coils in the right-sided pelvis. Aortic biiliac stent graft. There are atherosclerotic vascular calcifications. RAD/HIP, UNI W/ Pelvis 2-3 Views IMPRESSION: There are findings concerning for right subcapital fracture. Electronically Signed: Christopher Gutierrez MD at 14:52 EDT Reading Location ID and State: [facility] / [place] , Service support ,
[2022-12-06] MEDS: Ondansetron 4 MG/2 ML Vial IV (15:18)
[2022-12-06] MEDS: 0.9% Normal Saline 1,000 ML 999 ML IV (15:18)
[2022-12-06] MEDS: Morphine 4 MG/ML Syringe IV ×3 (15:18→18:15)
[2022-12-06 15:35] LABS: AST(SGOT) 16 U/L (15-37); Alanine Aminotransfer ALT/SGPT 21 U/L (16-61); Albumin, Serum 3.7 g/dL (3.2-5.0); Alkaline Phosphatase 97 U/L (45-117); Anion Gap 9 (5-15); BUN 12 mg/dL (7-18); BUN/Creat Ratio 14.7 RATIO (10-20); Calcium,Total 9.4 mg/dL (8.5-10.1); Chloride 99 mmol/L (98-107); Creatinine, Serum 0.82 mg/dL (0.70-1.30); EST Glomerular Filtration Rate 96 mL/min (>60); Est Glom Filt Rate - Afr Amer 116 mL/min (>60); Globulin 3.8 g/dL (2.2-4.2); Glucose 121 mg/dL (74-106); Potassium 3.9 mmol/L (3.5-5.1); Protein, Total 7.5 g/dL (6.4-8.2); Sodium Level 131 mmol/L (136-145)
[2022-12-06 15:36] LABS: Absolute Lymphocyte Count 1.78 X10^3/uL (0.83-4.51); Absolute Neutrophil Count 6.9 X10^3/uL (2.0-7.7); Basophil# 0.02 X10^3/uL; Basophil% 0.2 % (0-1); Eosinophil# 0.01 X10^3/uL; Eosinophils% 0.1 % (0-5); Hematocrit 35.2 % (40-54); Hemoglobin 11.8 g/dL (13.0-16.5); Lymphocyte # 1.78 X10^3/ul (0.83-4.51); Lymphocyte % 17.6 % (19-41); Mean Corp Hgb Conc 33.5 g/dL (32-36); Mean Corpuscular Hgb 28.3 pg (27.0-32.0); Mean Corpuscular Volume 84.4 fL (80-94); Mean Platelet Vol. 8.7 fl (6.2-12.0); Monocyte# 1.35 X10^3/uL; Monocyte% 13.4 % (0-10); NRBC Flagged by Analyzer 0 % (0-5); Neutrophil % 68.4 % (47-70); Platelet Count 237 K/mm3 (150-450); RBC Distribution Width CV 15.8 % (11.6-14.6); RBC Distribution Width SD 48.3 fl (35.1-43.9); Red Blood Count 4.17 M/mm3 (4.6-6.2); White Blood Count 10.1 K/mm3 (4.4-11.0)
--- NOTE | 2022-12-06 16:48 | CON.PCM.OR_ITS ---
HPI Consult Data Date of Consult: 12/06/22 HPI Narrative HPI Narrative: CHITO CORDON, is a 82 M who presents for right hip fracture. Was called by the ED provider at about 430 today. Saw the patient at a little before 5 PM. According to the patient he had a ground-level fall tripped he has normally a little bit of problems with his right lower extremity tripped over his legs was having difficulty ambulating. Normally uses a cane. Here with his Rashmi. No head injury or other injuries to speak of. [facility] Medical History Abdominal aortic aneurysm (AAA) Alcohol abuse Atherosclerotic heart disease of [place] coronary artery without angina pectoris Back problem Bone fracture BPH (benign prostatic hyperplasia) Cataract Cellulitis of scrotum Chronic back pain Chronic cough COPD (chronic obstructive pulmonary disease) COVID-19 vaccine series completed Easy bruising Essential (primary) hypertension Fecal urgency Gastric ulcer GERD (gastroesophageal reflux disease) History of echocardiogram History of RSV infection History of stress test History of ulceration Hoarseness Iliac artery aneurysm, right Ischemic cardiomyopathy Macular degeneration Nicotine dependence Right inguinal hernia Scrotal abscess Seasonal allergies Smoker Spinal stenosis of lumbar region with neurogenic claudication Syncope Vision problem Wears dentures Home Medications Handicap Placard #1 ea 12/29/21 [Rx Last Taken Unknown] albuterol sulfate 90 mcg/actuation aerosol inhaler (ProAir HFA) 2 puff inhalation Q6H PRN shortness of breath or wheezing #8.5 grams 09/26/22 [Rx Last Taken Unknown] budesonide-formoterol HFA 160 mcg-4.5 mcg/actuation aerosol inhaler (Symbicort) 2 puff inhalation Q12H COPD 12/06/22 [History Last Taken 12/06/22] carvedilol 3.125 mg tablet 3.125 mg PO DAILY HEART 12/06/22 [History Last Taken 12/06/22] losartan 50 mg tablet 50 mg PO DAILY BLOOD PRRESSURE 12/06/22 [History Last Taken 12/06/22] omeprazole 40 mg capsule,delayed release 40 mg PO DAILY ACID REFLUX 12/06/22 [History Last Taken 12/06/22] tamsulosin 0.4 mg capsule 0.8 mg PO QHS PROSTATE 12/06/22 [History Last Taken 12/05/22] Allergy/AdvReac Type Severity Reaction Status Date / Time No Known Allergies Allergy Verified 09/26/22 13:04 Family History Grandfather Cancer Father Brain aneurysm Daughter Hypertension Surgical History History of back surgery History of colonoscopy History of endovascular stent graft for abdominal aortic aneurysm (AAA) (12/11/13) History of esophagogastroduodenoscopy (EGD) History of left heart catheterization (11/11/13) History of right inguinal hernia repair Rupture of biceps tendon Social History Smoking Status: Current every day smoker tobacco type: cigarettes Tobacco: How many years used: 62 alcohol intake: current alcohol intake frequency: 3 or more drinks per day Alcohol type: beer substance use type: does not use what type of physical activity do you participate in: none Vital Signs Vital Signs Vital Signs: 12/06/22 13:48 12/06/22 14:01 Temperature 97.8 F Temperature Source Temporal Pulse Rate 84 Respiratory Rate 18 Respiratory Effort Normal Respiratory Depth Normal Respiratory Pattern Normal Blood Pressure 167/101 H Blood Pressure Mean 123 Pulse Ox 98 Oxygen Delivery Method Room Air Physical Exam Const alert, oriented x3, no apparent distress and well nourished General Appearance: cooperative and well developed Resp normal respiratory effort Effort and Inspection: able to speak in complete sentences Cardio regular rate Extremity normal capillary refill, no calf tenderness and no pedal edema Extremity Narrative: Closed injury right lower extremity at the hip. Slightly externally rotated. Normal sensation motor function of the foot foot is warm and well-perfused good dorsalis pedis and tibialis posterior pulses. He is able to wiggle the toes dorsiflex and plantarflex the foot. No pain at the knee ankle or foot. Lab / Micro Data Result Diagrams: 12/06/22 15:25 12/06/22 14:32 Labs: Laboratory Results - last 24 hr 12/06/22 14:32: Sodium 131 L, Potassium 3.9, Chloride 99, Carbon Dioxide 23.0, Anion Gap 9, BUN 12, Creatinine 0.82, Est GFR (MDRD) Af Amer 116, Est GFR (MDRD) Non-Af 96, BUN/Creatinine Ratio 14.7, Glucose 121 H, Calcium 9.4, Total Bilirubin 1.20 H, AST 16, ALT 21, Alkaline Phosphatase 97, Total Protein 7.5, Albumin 3.7, Globulin 3.8, Albumin/Globulin Ratio 1.0 12/06/22 15:25: WBC 10.1, RBC 4.17 L, Hgb 11.8 L, Hct 35.2 L, MCV 84.4, MCH 28.3, MCHC 33.5, RDW Std Deviation 48.3 H, RDW Coeff of Tea 15.8 H, Plt Count 237, MPV 8.7, Immature Gran % (Auto) 0.300, Neut % (Auto) 68.4, Lymph % (Auto) 17.6 L, [place] % (Auto) 13.4 H, Eos % (Auto) 0.1, Baso % (Auto) 0.2, Absolute Neuts (auto) 6.9, Absolute Lymphs (auto) 1.78, Nucleated RBC % 0 Radiology Impression Hip/Pelvis X-Ray 12/06/22 14:15 IMPRESSION: There are findings concerning for right subcapital fracture. Electronically Signed: Christopher Gutierrez MD at 14:52 EDT , There appears to be a displaced right femoral neck fracture. Assessment & Plan Assessment/Plan (1) Displaced fracture of right femoral neck: PLAN: 82-year-old man with a displaced right femoral neck fracture. This is typically indicated for surgery. Nonoperative risks would be high including DVT pulmonary embolism and infections. Typically this be indicated for either hemiarthroplasty or total hip arthroplasty. My preference is for cemented hemiarthroplasty. We discussed the pros and cons risks and benefits of nonoperative versus operative measures. He wished to go ahead with surgery had his signed the consent form due to macular degeneration. Marked the right lower extremity. I will have him admitted under the hospitalist service and I did let the commercial housekeeper as well as the anesthesiologist know about the case. Plan for the patient is to be RENNY and n.p.o. at midnight in preparation to do the case tomorrow in the afternoon. Pros and cons risks and benefits were discussed with the patient including but not limited to infection, pain, stiffness, bleeding, damage to surrounding structures, neurovascular injury, recurrence or retear, failure or wear of h ardware or fixation, instability, fracture, deep vein thrombosis and pulmonary embolism, anesthetic risks, , patient dissatisfaction, need for further surgery and other risks. Patient understood and wished to proceed with surgery, and signed the informed consent documentation.
[2022-12-06 16:56] VITALS: BP 154/84; PULSE 91; RESP 15; TEMP 36.8; O2SAT 95; BMI 24.6
--- NOTE | 2022-12-06 17:23 | ED.RN ---
Pain at 3/10.
[2022-12-06 18:09] VITALS: BP 142/82; PULSE 88; RESP 16; O2SAT 99
[2022-12-06 18:29] VITALS: BP 145/82; PULSE 93; RESP 20; O2SAT 95
[2022-12-06] MEDS: Albuterol 2.5 MG/3 ML VIAL.NEB. INHALATION (19:30)
[2022-12-06] MEDS: Budesonide Respules 0.5 MG/2 ML AMPUL.NEB. INHALATION (19:30)
[2022-12-06 19:31] VITALS: PULSE 94; RESP 16
[2022-12-06 19:37] VITALS: BMI 24.5
[2022-12-06 19:53] VITALS: BP 158/83; PULSE 97; RESP 16; TEMP 36.7; O2SAT 95
--- NOTE | 2022-12-06 20:10 | HP.PCM_ITS ---
HPI - General General Date of Admission: 12/06/22 Date of Service: 12/06/22 Chief Complaint: Right hip pain HPI Narrative CHITO CORDON, is a 82 M who presents right hip pain following a fall. Was unable to bear weight thereafter. X-ray showed subcapital right hip fracture. Patient states he has been having issues with his right lower extremity where it would freeze and refuse to move and so causing a posterior instability and loss of balance. He denies any chest pain or shortness of breath with activity or at rest. Able to walk up and down flights of stairs without any problems. [facility] Medical History Abdominal aortic aneurysm (AAA) Alcohol abuse Atherosclerotic heart disease of [place] coronary artery without angina pectoris Back problem Bone fracture BPH (benign prostatic hyperplasia) Cataract Cellulitis of scrotum Chronic back pain Chronic cough COPD (chronic obstructive pulmonary disease) COVID-19 vaccine series completed Easy bruising Essential (primary) hypertension Fecal urgency Gastric ulcer GERD (gastroesophageal reflux disease) History of echocardiogram History of RSV infection History of stress test History of ulceration Hoarseness Iliac artery aneurysm, right Ischemic cardiomyopathy Macular degeneration Nicotine dependence Right inguinal hernia Scrotal abscess Seasonal allergies Smoker Spinal stenosis of lumbar region with neurogenic claudication Syncope Vision problem Wears dentures Home Medications Handicap Placard #1 ea 12/29/21 [Rx Last Taken Unknown] albuterol sulfate 90 mcg/actuation aerosol inhaler (ProAir HFA) 2 puff inhalation Q6H PRN shortness of breath or wheezing #8.5 grams 09/26/22 [Rx Last Taken Unknown] budesonide-formoterol HFA 160 mcg-4.5 mcg/actuation aerosol inhaler (Symbicort) 2 puff inhalation Q12H COPD 12/06/22 [History Last Taken 12/06/22] carvedilol 3.125 mg tablet 3.125 mg PO DAILY HEART 12/06/22 [History Last Taken 12/06/22] losartan 50 mg tablet 50 mg PO DAILY BLOOD PRRESSURE 12/06/22 [History Last Taken 12/06/22] omeprazole 40 mg capsule,delayed release 40 mg PO DAILY ACID REFLUX 12/06/22 [History Last Taken 12/06/22] tamsulosin 0.4 mg capsule 0.8 mg PO QHS PROSTATE 12/06/22 [History Last Taken 12/05/22] Allergy/AdvReac Type Severity Reaction Status Date / Time No Known Allergies Allergy Verified 09/26/22 13:04 Family History Grandfather Cancer Father Brain aneurysm Daughter Hypertension Surgical History History of back surgery History of colonoscopy History of endovascular stent graft for abdominal aortic aneurysm (AAA) (12/11/13) History of esophagogastroduodenoscopy (EGD) History of left heart catheterization (11/11/13) History of right inguinal hernia repair Rupture of biceps tendon Social History Smoking Status: Current every day smoker tobacco type: cigarettes Tobacco: How many years used: 62 alcohol intake: current alcohol intake frequency: 3 or more drinks per day Alcohol type: beer substance use type: does not use what type of physical activity do you participate in: none ROS ROS Narrative Denies any chest pain or shortness of breath. All other systems reviewed and essentially negative as above in the body of the history. Vital Signs Vital Signs Vital Signs: 12/06/22 13:48 12/06/22 14:01 12/06/22 16:56 Temperature 36.6 C 36.8 C Temperature Source Temporal Oral Pulse Rate 84 91 Respiratory Rate 18 15 Respiratory Effort Normal Respiratory Depth Normal Respiratory Pattern Normal Blood Pressure 167/101 H 154/84 H Blood Pressure Mean 123 107 Blood Pressure Source Blood Pressure Position Blood Pressure Location Pulse Ox 98 95 Oxygen Delivery Method Room Air Room Air 12/06/22 18:09 12/06/22 18:29 12/06/22 19:53 Temperature 36.7 C Temperature Source Oral Pulse Rate 88 93 97 Respiratory Rate 16 20 H 16 Respiratory Effort Respiratory Depth Respiratory Pattern Blood Pressure 142/82 H 145/82 H 158/83 H Blood Pressure Mean 102 103 108 Blood Pressure Source Monitor Blood Pressure Position Semi-Fowlers Blood Pressure Location Right Arm Pulse Ox 99 95 95 Oxygen Delivery Method Room Air Room Air Room Air Weight Weight: 71.214 kg Body Mass Index (BMI) 24.5 Physical Exam Narrative General exam. Elderly man, mild painful distress. HEENT. Oral mucosa moist no pallor or jaundice Neck. Neck is supple Heart. First and second sounds are no murmurs Lungs. Clear to auscultation. Abdomen. Moves with respiration Extremities. Right hip pain. 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 Cranial 2-12 grossly intact. Results Medical Records Data Attestation: I reviewed the patient's medical records Lab / Micro Data Attestation: I reviewed the patient's lab results. Result Diagrams: 12/06/22 15:25 12/06/22 14:32 Labs: Laboratory Results - last 24 hr 12/06/22 14:32: Sodium 131 L, Potassium 3.9, Chloride 99, Carbon Dioxide 23.0, Anion Gap 9, BUN 12, Creatinine 0.82, Est GFR (MDRD) Af Amer 116, Est GFR (MDRD) Non-Af 96, BUN/Creatinine Ratio 14.7, Glucose 121 H, Calcium 9.4, Total Bilirubin 1.20 H, AST 16, ALT 21, Alkaline Phosphatase 97, Total Protein 7.5, Albumin 3.7, Globulin 3.8, Albumin/Globulin Ratio 1.0 12/06/22 15:25: WBC 10.1, RBC 4.17 L, Hgb 11.8 L, Hct 35.2 L, MCV 84.4, MCH 28.3, MCHC 33.5, RDW Std Deviation 48.3 H, RDW Coeff of Tea 15.8 H, Plt Count 237, MPV 8.7, Immature Gran % (Auto) 0.300, Neut % (Auto) 68.4, Lymph % (Auto) 17.6 L, [place] % (Auto) 13.4 H, Eos % (Auto) 0.1, Baso % (Auto) 0.2, Absolute Neuts (auto) 6.9, Absolute Lymphs (auto) 1.78, Nucleated RBC % 0 Radiology Impression Hip/Pelvis X-Ray 12/06/22 14:15 IMPRESSION: There are findings concerning for right subcapital fracture. Electronically Signed: Christopher Gutierrez MD at 14:52 EDT , Assessment & Plan Assessment/Plan (1) Displaced fracture of right femoral neck: PLAN: Plan Assessment and plan 1. Subcapital right hip fracture. Likely will need ORIF. Significant cardiovascular history including coronary disease status post stent remotely and peripheral arterial disease with a history of endovascular stent graft for AAA. We will get EKG preoperatively. Consult cardiology for preoperative cardiac evaluation and optimization. Noted that last stress test done 2 years ago was normal. 2. Coronary artery disease/remote stenting with ischemic cardiomyopathy. Clinically stable disease. 3. COPD. Stable. Charges/Coding Visit Charges Inpatient E&M: 27090 Init Hosp L3
[2022-12-06] MEDS: Acetaminophen 500 MG Tablet 1000 MG PO (20:46)
[2022-12-06] MEDS: Tamsulosin HCl 0.4 MG Capsule 0.8 MG PO (20:46)
[2022-12-06] MEDS: oxyCODONE 5 MG Tablet PO (20:47)
[2022-12-07] VITALS (13 sets, daily range): BP systolic 105–138; BP diastolic 62–107; PULSE 69–120; RESP 14–20; TEMP 36.2–37.1; O2SAT 91–98; BMI 24.5; BMI 23.1
[2022-12-07] MEDS: oxyCODONE 5 MG Tablet PO (04:29)
--- NOTE | 2022-12-07 05:00 | RAD_ITS ---
EXAM: XR CHEST, 1 VIEW CLINICAL INDICATION: preoperative TECHNIQUE: Frontal view of the chest. COMPARISON: November 15, 2021. FINDINGS: LUNGS AND PLEURAL SPACES: Mild pulmonary hyperinflation, increased lucency, and mild increased interstitial markings, similar to prior exam. No pneumothorax. No effusion. HEART: Unremarkable. Cardiac silhouette not enlarged. MEDIASTINUM: Central airways and mediastinal contour are unremarkable. BONES/JOINTS: Unremarkable. SOFT TISSUES: Unremarkable. VASCULATURE: Mild peripheral calcification of the aortic arch, stable. RAD/Chest 1 View (Portable) IMPRESSION: Stable chest. Chronic lung changes. Electronically Signed: Monica Randhawa MD at 5:06 EDT ,
[2022-12-07] MEDS: Acetaminophen 500 MG Tablet 1000 MG PO ×2 (05:36→21:53)
[2022-12-07 05:39] LABS: Absolute Lymphocyte Count 1.48 X10^3/uL (0.83-4.51); Absolute Neutrophil Count 5.8 X10^3/uL (2.0-7.7); Basophil# 0.04 X10^3/uL; Basophil% 0.5 % (0-1); Eosinophil# 0.07 X10^3/uL; Eosinophils% 0.8 % (0-5); Hemoglobin 11.7 g/dL (13.0-16.5); Lymphocyte # 1.48 X10^3/ul (0.83-4.51); Lymphocyte % 17.6 % (19-41); Mean Corp Hgb Conc 34.4 g/dL (32-36); Mean Corpuscular Hgb 28.7 pg (27.0-32.0); Mean Corpuscular Volume 83.5 fL (80-94); Mean Platelet Vol. 8.8 fl (6.2-12.0); Monocyte% 11.9 % (0-10); NRBC Flagged by Analyzer 0 % (0-5); Neutrophil # 5.79 X10^3/uL (2.7-7.7); Neutrophil % 68.8 % (47-70); Platelet Count 232 K/mm3 (150-450); RBC Distribution Width CV 15.6 % (11.6-14.6); RBC Distribution Width SD 47.3 fl (35.1-43.9); Red Blood Count 4.07 M/mm3 (4.6-6.2); White Blood Count 8.4 K/mm3 (4.4-11.0)
[2022-12-07 05:52] LABS: Prothrombin Time (Protime)PT. 13.5 SECONDS (11.7-14.9)
[2022-12-07 05:53] LABS: Partial Thromboplast Time 35.7 Seconds (24.1-36.2)
[2022-12-07 06:10] LABS: ALB/GLOB Ratio 0.9 RATIO (0.9-2.4); AST(SGOT) 14 U/L (15-37); Alanine Aminotransfer ALT/SGPT 16 U/L (16-61); Albumin, Serum 3.2 g/dL (3.2-5.0); Alkaline Phosphatase 87 U/L (45-117); Anion Gap 4 (5-15); BUN 7 mg/dL (7-18); BUN/Creat Ratio 11.3 RATIO (10-20); Calcium,Total 8.5 mg/dL (8.5-10.1); Chloride 106 mmol/L (98-107); Creatinine, Serum 0.62 mg/dL (0.70-1.30); EST Glomerular Filtration Rate 132 mL/min (>60); Est Glom Filt Rate - Afr Amer 160 mL/min (>60); Estimated Creatinine Clearance 53.25 ml/min; Globulin 3.4 g/dL (2.2-4.2); Glucose 116 mg/dL (74-106); Magnesium 1.7 mg/dL (1.6-2.6); Phosphorus 2.5 mg/dL (2.5-4.9); Protein, Total 6.6 g/dL (6.4-8.2); Sodium Level 135 mmol/L (136-145)
[2022-12-07] MEDS: Budesonide Respules 0.5 MG/2 ML AMPUL.NEB. INHALATION ×2 (07:00→19:18)
[2022-12-07] MEDS: Albuterol 2.5 MG/3 ML VIAL.NEB. INHALATION ×2 (07:01→19:18)
--- NOTE | 2022-12-07 07:39 | PCM.PN.HOSP ---
Reason for Visit Reason for Visit: Diagnoses Fracture of unspecified part of neck of right femur, initial encounter for closed fracture (12/06/22) Subjective Subjective With no acute events overnight per self and per nursing report. He does currently complain of hip pain and rates it sharp especially with movement 5 out of 10 in severity but if he is resting is more comfortable he notes. He understands we are awaiting cardiology assessment for transition to the OR. Patient denies fevers, chills, nausea, emesis, abdominal pain, chest pain or dyspnea. Objective Data Objective Data Vital Signs: Vital Signs Temp Pulse Resp BP Pulse Ox O2 Del Method 98.4 F 86 16 118/68 94 Room Air 12/07/22 02:00 12/07/22 07:00 12/07/22 07:00 12/07/22 02:00 12/07/22 02:00 12/07/22 02:00 Oxygen Delivery Method Room Air Weight: 157 lb Body Mass Index (BMI) 24.5 Intake & Output: Intake and Output for Last 24 Hours 12/05/22 12/06/22 12/07/22 23:59 23:59 23:59 Intake Total 1000 / 1000 Output Total 500 / 500 Balance 1000 / 750 -500 / -500 Lab / Micro Data Result Diagrams: 12/07/22 05:15 12/07/22 05:15 Labs: Laboratory Results - last 24 hr 12/06/22 14:32: Sodium 131 L, Potassium 3.9, Chloride 99, Carbon Dioxide 23.0, Anion Gap 9, BUN 12, Creatinine 0.82, Est GFR (MDRD) Af Amer 116, Est GFR (MDRD) Non-Af 96, BUN/Creatinine Ratio 14.7, Glucose 121 H, Calcium 9.4, Total Bilirubin 1.20 H, AST 16, ALT 21, Alkaline Phosphatase 97, Total Protein 7.5, Albumin 3.7, Globulin 3.8, Albumin/Globulin Ratio 1.0 12/06/22 15:25: WBC 10.1, RBC 4.17 L, Hgb 11.8 L, Hct 35.2 L, MCV 84.4, MCH 28.3, MCHC 33.5, RDW Std Deviation 48.3 H, RDW Coeff of [place] 15.8 H, Plt Count 237, MPV 8.7, Immature Gran % (Auto) 0.300, Neut % (Auto) 68.4, Lymph % (Auto) 17.6 L, [place] % (Auto) 13.4 H, Eos % (Auto) 0.1, Baso % (Auto) 0.2, Absolute Neuts (auto) 6.9, Absolute Lymphs (auto) 1.78, Nucleated RBC % 0 12/07/22 05:15: Sodium 135 L, Potassium 4.0, Chloride 106, Carbon Dioxide 25.0, Anion Gap 4 L, BUN 7, Creatinine 0.62 L, Estim Creat Clear Calc 53.25, Est GFR (MDRD) Af Amer 160, Est GFR (MDRD) Non-Af 132, BUN/Creatinine Ratio 11.3, Glucose 116 H, Calcium 8.5, Phosphorus 2.5, Magnesium 1.7, Total Bilirubin 1.10 H, AST 14 L, ALT 16, Alkaline Phosphatase 87, Total Protein 6.6, Albumin 3.2, Globulin 3.4, Albumin/Globulin Ratio 0.9 12/07/22 05:15: WBC 8.4, RBC 4.07 L, Hgb 11.7 L, Hct 34.0 L, MCV 83.5, MCH 28.7, MCHC 34.4, RDW Std Deviation 47.3 H, RDW Coeff of [place] 15.6 H, Plt Count 232, MPV 8.8, Immature Gran % (Auto) 0.400, Neut % (Auto) 68.8, Lymph % (Auto) 17.6 L, [place] % (Auto) 11.9 H, Eos % (Auto) 0.8, Baso % (Auto) 0.5, Absolute Neuts (auto) 5.8, Absolute Lymphs (auto) 1.48, Nucleated RBC % 0 12/07/22 05:15: PT 13.5, INR 1.0, APTT 35.7 12/07/22 05:15: Blood Type A NEGATIVE, Antibody Screen NEGATIVE Radiography Diagnostic Testing: Radiology Impression Hip/Pelvis X-Ray 12/06/22 14:15 IMPRESSION: There are findings concerning for right subcapital fracture. Electronically Signed: Christopher Gutierrez MD at 14:52 EDT , Chest X-Ray 12/07/22 05:00 IMPRESSION: Stable chest. Chronic lung changes. Electronically Signed: Monica Randhawa MD at 5:06 EDT , Physical Exam Narrative Physical Examination: General: Awake, alert, oriented x 3 and cooperative, laying in the medical surgical bed, mildly fatigued appearing, notes discomfort to the right hip approximately 5 out of 10 in severity. Skin: Normal color, normal turgor, no icterus, no cyanosis except for occasional staged ecchymoses. HEENT: AT/NC, EOMI, PERRLA, mildly dry MM. Lungs: Mildly diminished, greater bases, appropriate effort, no rales, ronchi or wheezing. Heart: Currently regular rate and rhythm; no gallop, rub audible. Abdomen: Soft, NTTP, ND, mildly hyperactive BS. Extremities: No cyanosis, no clubbing, no marked peripheral pitting edema, pulses intact, status post mechanical fall with right hip fracture awaiting OR. Neurological: Patient awake, alert, oriented as noted, cognitive function intact; pupils equally reactive to light and accommodation, cranial nerves II-XII grossly normal, moving all 4 extremities although expected limitation especially right lower extremity given fall with right hip fracture awaiting a walker, strength accordingly severely globally decreased. Psychiatric: Affect appears fatigued, no acute evidence of depressive or anxiety feelings. Assessment & Plan Assessment/Plan (1) Displaced fracture of right femoral neck: PLAN: Plan The patient is an 82 y/o M w/ PMHx: AAA, EtOH abuse, CAD/Ischemic cardiomyopathy, BPH, COPD, GERD w/ Hx Gastic ulcer, HTN, HLD who presents to the [facility] ED on 12/06/22 with history of chronic right hip pain noting that it catches frequently however the day prior he stepped forward and felt his right hip catch unfortunate prompting him to fall down with intractable ongoing right hip pain prompting eventual ED evaluation. #1. General debility, right hip pain s/p mechanical fall w/ right subcapital fracture fracture: Chest x-ray with stable chronic lung changes no acute cardiopulmonary findings, plain film of the right hip with evidence of right subcapital fracture, admission CBC with WC 10.1, hemoglobin 1.8, MCV 84.4, no marked shift, unremarkable CMP. Orthopedic surgery consulted from ED. Admitted to [facility], [er admitting hospitalist Dr. Wing pending Cardiology consultation for clearance/progression to OR which is pending upon evaluation this am, maintained n.p.o. status, judicious hydration, Keen placed, monitor I/Os, frequent positioning, fall precautions, as needed pain, anti-emetic regimen. PT/OT following operative intervention. CM consulted for discharge planning. From review of admission hospitalist and orthopedic surgery notes planned OR 12/07/2022. #2. Chronic normocytic anemia: Admission hemoglobin 11.8, prior baseline appears primarily 10-12, stable, 12/07/2022 hemoglobin 11.7, continue to trend. #3. Chronic hyponatremia: Admission sodium 131, baseline primarily 1 30-1 35, stable, continue to trend. #4. Suspected EtOH Abuse: Patient notes routine consumption of at least 1-3 beers, usually at least 2 per day but chart reports history of EtOH abuse. Will maintain on CIWA protocol, MVI, thiamine and folic acid. Case management consulted and following. #5. CAD/ischemic cardiomyopathy: We will continue aspirin, Coreg, losartan, not on statin therapy, clarify and add if appropriate. 09/07/2020 echocardiogram with normal LV systolic function, EF 55%, no regional wall motion abnormalities, mild concentric LVH with contrast injection performed. #6. AAA: s/p endovascular stenting/grafting, will continue aspirin, Coreg, losartan, not on statin therapy, clarify and add if appropriate. #7. Chronic COPD: Will hold patient home inhaler in the interim transition to ATC budesonide therapy, as needed albuterol, encourage head of bed and I-S. #8. Hypertension: Continue home regimen including Coreg, losartan with hold parameters as needed, PRN hydralazine. #9. Hyperlipidemia: Not on regimen, defer to outpatient. #10. BPH: We will continue patient home Flomax regimen. #11. GERD: We will continue patient home omeprazole regimen. #12. DVT prophylaxis: SCDs. #13. CODE STATUS: Full code. Admission Evaluation Time spent evaluating chart, patient history, patient evaluation, care planning and discussion with specialists: 50 minutes. Charges/Coding Visit Charges Inpatient E&M: 17920 Subs Hosp L3
[2022-12-07] MEDS: Carvedilol 3.125 MG TABLET PO (07:41)
[2022-12-07] MEDS: Losartan Potassium 50 MG Tablet PO (07:41)
--- NOTE | 2022-12-07 08:58 | CASEMGMT ---
Discharge Planning SNF created and given to SW. Janna Alberto, Discharge Planning Asst.
--- NOTE | 2022-12-07 09:21 | CASEMGMT ---
Addendum entered by Rocio Santoro 12/07/22 09:36: Social Work SW did ask pt about his alcohol consumption. Pt states he drinks casually, and socially. Pt states he does not drink every day, and has not drank for about four days. Pt is not interested in resources for alcohol cessation. SW available should pt request resources while here. LUIS Contreras Original Note: Social Work SW met w/pt in room, spoke w/pt about prior level of care and anticipated discharge plan. PCP: Dr. Wing Specialists: None Insurance: [employer] Medicare Pharmacy: [facility] in [place] L[place]: , daughter Living arrangements/Prior level of function: Pt lives w/ in a split level home, 6 steps between levels. He does have a bedside commode so can stay on one level if he uses the bedside commode. Pt independent with personal ADLs, medications. does the cooking, cleaning, driving, bills. Pt has macular degeneration so cannot see well enough to drive or pay the bills. Pt gets around with a cane. LW/POA: Pt states is POA, asked him to have papers brought in as able. DME: Pt has walker, cane, shower chair, bedside commode. Pt states he had back surgery a few years ago so has all the equipment from that. SNF/HHC: Pt has no history of either, did do outpt PT after his back surgery at [place]. Plan: TBD, SNF vs home SW spoke w/pt about plan, he would prefer to go home rather than a SNF. SW did provide to pt a list of [facility] facilities via [facility] in network w/pt's insurance, preferred geographic area and complete with quality and resource use data. Pt not able to read the list due to the macular degeneration. SW reviewed the list briefly w/pt, and left for his who will be here later. SW explained that we will follow up w/him once he has had surgery and therapy, to see what will be the most appropriate plan. SW/CM will continue to follow. LUIS Contreras
--- NOTE | 2022-12-07 09:34 | CASEMGMT ---
Social Work Pt states is POA for healthcare, SW asked pt to have the documents brought in as able. Pt states understanding. LUIS Contreras
--- NOTE | 2022-12-07 09:43 | CASEMGMT ---
Discharge Planning HH list created and sent to RN CM. Janna Alberto, Discharge Planning Asst.
--- NOTE | 2022-12-07 09:43 | NURSING ---
This RN First texted Dr. Calderon for cardiology consult but Dr. Calderon informed me that he was not distributor sales consultant for consults but Dr. Tomlinson is. This RN contacted Dr. Tomlinson to inform of consult for preop cardiac eval. Dr. Tomlinson stated he wont be able to see pt until after 12pm today. 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 Dr. Tomlinson stated that he can not come any sooner then 12pm. This RN texted Dr. Dee to inform.
--- NOTE | 2022-12-07 09:55 | NURSING ---
Sindhu RN AC charge nurse aware that pt has Cardiology consult but did ask for picture of EKG that was done 12/06/22 so that was sent via [employer].
--- NOTE | 2022-12-07 10:13 | CASEMGMT ---
Social Work SW met w/pt and in room in regard to prior level of function and anticipated discharge. PCP: Chas Specialists: Dr. Pisano, neurosurgeon, [facility] Insurance: [facility] Medicare Pharmacy: For custodial, [facility], short term, [facility] LNOK: , step daughter, sister(sister lives in [facility]) LW/POA: Has not completed the documents, may be interested in completing them at some point while here as time allows. Living arrangements/Prior level of function: Pt had a craniotomy one week ago. Prior to this she was independent with all ADLs. Pt's sister had helped her get her medication sorted when she left rehab a few months ago. drives. They do have a cleaning person. Otherwise, she was cooking, cleaning, completing her personal ADLS. Pt had a craniotomy on 11/28 and has not been able to do anything since the. She went home from [facility] on IV antibiotics on 12/05, and brought her in yesterday due to severe weakness. He states she sat in a chair when got home and did not move. DME/SNF/HHC: Pt has a walker, 3 in 1 commode, grab bars. Pt went to our rehab after a stroke in August, then went home w/outpt therapy at [facility]. After that pt worked with a personal banking officer. Pt got an infection and had a craniotomy on 11/28 at [facility]. She went home w/home care through [facility]([phone]). Pt was on IV Meropenem at home. Plan: SNF vs Rehab. SW spoke w/pt and at length. They explained after the craniotomy pt never got PT/OT at [facility] and they sent her home, she has not been able to do anything since home. Pt had a stroke in July, was life flighted to [facility], and then came back here for rehab. SW provided to pt and list of long term facilities via [employer] in pt's insurance network, preferred geographic area, and complete with quality and resource use data. Physician walked in while SW speaking w/pt and . We spoke about rehab, pt would prefer rehab, and TCU would be the second choice. Physician in agreement with this plan. SW explained will make referral and let them know. SW spoke w/Sydney in rehab/TCU. She will speak w/physician and let SW if rehab would consider taking pt again. SW will continue to follow. LUIS Contreras
--- NOTE | 2022-12-07 12:06 | CON.PCM.CA_ITS ---
Assessment & Plan Assessment/Plan (1) Preoperative cardiovascular examination: PLAN: Patient does not have any symptoms of angina pectoralis. No major arrhythmias. No signs or symptoms of heart failure. I think he is an acceptable risk from a cardiac standpoint for the proposed procedure. Please avoid major hemodynamic swings during and after anesthesia. (2) Essential (primary) hypertension: PLAN: Controlled. On beta-blockers and losartan. (3) History of endovascular stent graft for abdominal aortic aneurysm (AAA): PLAN: Continue to follow with vascular surgery. Continue with beta-blockers and angiotensin receptor blockers for blood pressure control. (4) Nicotine dependence: PLAN: Counseled to quit. (5) Displaced fracture of right femoral neck: PLAN: See #1 above. Scheduled for surgery. HPI Consult Data Date of Consult: 12/07/22 HPI Narrative Reason for Consultation: Preoperative cardiac risk evaluation HPI Narrative: This gentleman has been rectal history significant for hypertension COPD, nicotine dependence and cardiomyopathy. Also has history of abdominal aortic aneurysm status post endovascular repair. He is admitted with fracture of his right femur. Scheduled for surgical repair. We are asked to evaluate his cardiac risk. Patient denies any previous cardiac history. Denies any history of coronary artery disease. Prior to the fracture of his femur, patient was physically active. According to him, he could climb 2 flights of stairs without any problems. No angina either at rest or with exertion. Denies orthopnea. No paroxysmal nocturnal dyspnea. No ankle edema. No syncope or presyncope. No palpitations. Per patient, he fell because he lost balance as he perceives that his right lower extremity 'just froze'. The patient's last stress test was in 2020. It showed no ischemia. Also showed borderline ejection fraction last echocardiogram was in 2020 as well. It showed normal left ventricular systolic function with no major valvular abnormalities. 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 Back problem Bone fracture BPH (benign prostatic hyperplasia) Cataract Cellulitis of scrotum Chronic back pain Chronic cough COPD (chronic obstructive pulmonary disease) COVID-19 vaccine series completed Easy bruising Essential (primary) hypertension Fecal urgency Gastric ulcer GERD (gastroesophageal reflux disease) History of echocardiogram History of RSV infection History of stress test History of ulceration Hoarseness Iliac artery aneurysm, right Ischemic cardiomyopathy Macular degeneration Nicotine dependence Right inguinal hernia Scrotal abscess Seasonal allergies Smoker Spinal stenosis of lumbar region with neurogenic claudication Syncope Vision problem Wears dentures Home Medications Handicap Placard #1 ea 12/29/21 [Rx Last Taken Unknown] albuterol sulfate 90 mcg/actuation aerosol inhaler (ProAir HFA) 2 puff inhalation Q6H PRN shortness of breath or wheezing #8.5 grams 09/26/22 [Rx Last Taken Unknown] budesonide-formoterol HFA 160 mcg-4.5 mcg/actuation aerosol inhaler (Symbicort) 2 puff inhalation Q12H COPD 12/06/22 [History Last Taken 12/06/22] carvedilol 3.125 mg tablet 3.125 mg PO DAILY HEART 12/06/22 [History Last Taken 12/06/22] losartan 50 mg tablet 50 mg PO DAILY BLOOD PRRESSURE 12/06/22 [History Last Taken 12/06/22] omeprazole 40 mg capsule,delayed release 40 mg PO DAILY ACID REFLUX 12/06/22 [History Last Taken 12/06/22] tamsulosin 0.4 mg capsule 0.8 mg PO QHS PROSTATE 12/06/22 [History Last Taken 12/05/22] Allergy/AdvReac Type Severity Reaction Status Date / Time No Known Allergies Allergy Verified 09/26/22 13:04 Family History Grandfather Cancer Father Brain aneurysm Daughter Hypertension Surgical History History of back surgery History of colonoscopy History of endovascular stent graft for abdominal aortic aneurysm (AAA) (12/11/13) History of esophagogastroduodenoscopy (EGD) History of left heart catheterization (11/11/13) History of right inguinal hernia repair Rupture of biceps tendon Social History Smoking Status: Current every day smoker tobacco type: cigarettes Tobacco: How many years used: 62 alcohol intake: current alcohol intake frequency: 3 or more drinks per day Alcohol type: beer substance use type: does not use what type of physical activity do you participate in: none Physical Exam Narrative Lying flat. Comfortable. No apparent distress. Heart sounds 1 and 2 are normal. No carotid bruits. Chest clear to auscultation bilaterally. Abdomen soft. Alert oriented x3. No ankle edema noted. Risk Stratification Risk Stratification Applicable: No Objective Data Vital Signs: Vital Signs Temp Pulse Resp BP Pulse Ox O2 Del Method 98.7 F 86 18 123/66 H 94 Room Air 12/07/22 08:00 12/07/22 08:00 12/07/22 08:00 12/07/22 08:00 12/07/22 08:00 12/07/22 08:00 Oxygen Delivery Method Room Air Weight: 152 lb 9 oz Body Mass Index (BMI) 23.1 Intake & Output: Intake and Output for Last 24 Hours 12/05/22 12/06/22 12/07/22 23:59 23:59 23:59 Intake Total 1000 / 1000 Output Total 500 / 500 Balance 1000 / 750 -500 / -500 Lab / Micro Data Result Diagrams: 12/07/22 05:15 12/07/22 05:15 Labs: Laboratory Results - last 24 hr 12/06/22 14:32: Sodium 131 L, Potassium 3.9, Chloride 99, Carbon Dioxide 23.0, Anion Gap 9, BUN 12, Creatinine 0.82, Est GFR (MDRD) Af Amer 116, Est GFR (MDRD) Non-Af 96, BUN/Creatinine Ratio 14.7, Glucose 121 H, Calcium 9.4, Total Bilirubin 1.20 H, AST 16, ALT 21, Alkaline Phosphatase 97, Total Protein 7.5, Albumin 3.7, Globulin 3.8, Albumin/Globulin Ratio 1.0 12/06/22 15:25: WBC 10.1, RBC 4.17 L, Hgb 11.8 L, Hct 35.2 L, MCV 84.4, MCH 28.3, MCHC 33.5, RDW Std Deviation 48.3 H, RDW Coeff of Tea 15.8 H, Plt Count 237, MPV 8.7, Immature Gran % (Auto) 0.300, Neut % (Auto) 68.4, Lymph % (Auto) 17.6 L, [place] % (Auto) 13.4 H, Eos % (Auto) 0.1, Baso % (Auto) 0.2, Absolute Neuts (auto) 6.9, Absolute Lymphs (auto) 1.78, Nucleated RBC % 0 12/07/22 05:15: Sodium 135 L, Potassium 4.0, Chloride 106, Carbon Dioxide 25.0, Anion Gap 4 L, BUN 7, Creatinine 0.62 L, Estim Creat Clear Calc 53.25, Est GFR (MDRD) Af Amer 160, Est GFR (MDRD) Non-Af 132, BUN/Creatinine Ratio 11.3, Glucose 116 H, Calcium 8.5, Phosphorus 2.5, Magnesium 1.7, Total Bilirubin 1.10 H, AST 14 L, ALT 16, Alkaline Phosphatase 87, Total Protein 6.6, Albumin 3.2, Globulin 3.4, Albumin/Globulin Ratio 0.9 12/07/22 05:15: WBC 8.4, RBC 4.07 L, Hgb 11.7 L, Hct 34.0 L, MCV 83.5, MCH 28.7, MCHC 34.4, RDW Std Deviation 47.3 H, RDW Coeff of Tea 15.6 H, Plt Count 232, MPV 8.8, Immature Gran % (Auto) 0.400, Neut % (Auto) 68.8, Lymph % (Auto) 17.6 L, [place] % (Auto) 11.9 H, Eos % (Auto) 0.8, Baso % (Auto) 0.5, Absolute Neuts (auto) 5.8, Absolute Lymphs (auto) 1.48, Nucleated RBC % 0 12/07/22 05:15: PT 13.5, INR 1.0, APTT 35.7 12/07/22 05:15: Blood Type A NEGATIVE, Antibody Screen NEGATIVE Rhythm Strip Rhythm Strip: Sinus Rhythm Cardiology Labs/Tests 12/06/22 14:32: Sodium 131 L, Potassium 3.9, Chloride 99, Carbon Dioxide 23.0, Anion Gap 9, BUN 12, Creatinine 0.82, Est GFR (MDRD) Af Amer 116, Est GFR (MDRD) Non-Af 96, BUN/Creatinine Ratio 14.7, Glucose 121 H, Calcium 9.4, Total Bilirubin 1.20 H 12/06/22 15:25: WBC 10.1, RBC 4.17 L, Hgb 11.8 L, Hct 35.2 L, MCV 84.4, MCH 28.3, MCHC 33.5, Plt Count 237, MPV 8.7, Immature Gran % (Auto) 0.300, Neut % (Auto) 68.4, Lymph % (Auto) 17.6 L, [place] % (Auto) 13.4 H, Eos % (Auto) 0.1, Baso % (Auto) 0.2, Absolute Neuts (auto) 6.9, Nucleated RBC % 0 12/07/22 05:15: Sodium 135 L, Potassium 4.0, Chloride 106, Carbon Dioxide 25.0, Anion Gap 4 L, BUN 7, Creatinine 0.62 L, Est GFR (MDRD) Af Amer 160, Est GFR (MDRD) Non-Af 132, BUN/Creatinine Ratio 11.3, Glucose 116 H, Calcium 8.5, Phosphorus 2.5, Magnesium 1.7, Total Bilirubin 1.10 H 12/07/22 05:15: WBC 8.4, RBC 4.07 L, Hgb 11.7 L, Hct 34.0 L, MCV 83.5, MCH 28.7, MCHC 34.4, Plt Count 232, MPV 8.8, Immature Gran % (Auto) 0.400, Neut % (Auto) 68.8, Lymph % (Auto) 17.6 L, [place] % (Auto) 11.9 H, Eos % (Auto) 0.8, Baso % (Auto) 0.5, Absolute Neuts (auto) 5.8, Nucleated RBC % 0 12/07/22 05:15: PT 13.5, INR 1.0, APTT 35.7 Rhythm: EKG: ECG shows normal sinus rhythm with no ischemic changes. ECHO: Stress Test: Cardiac Cath: PCI: CT Surgery: Holter monitor: EPS: PPM: CXR: Chest CT Scan: Radiography Diagnostic Testing: Radiology Impression Hip/Pelvis X-Ray 12/06/22 14:15 IMPRESSION: There are findings concerning for right subcapital fracture. Electronically Signed: Christopher Gutierrez MD at 14:52 EDT Reading Location ID and State: [facility] / [place] , Service support , Chest X-Ray 12/07/22 05:00 IMPRESSION: Stable chest. Chronic lung changes. Electronically Signed: Monica Randhawa MD at 5:06 EDT ,
[2022-12-07] MEDS: 0.9% Normal Saline 1,000 ML 15 ML IV (12:54)
[2022-12-07] MEDS: Cefazolin 2 GM in 0.9% Normal Saline 100 ML IV (13:27)
--- NOTE | 2022-12-07 13:30 | FEM_PTH ---
PATIENT: CHITO CORDON LOC: MS3 U#:[id number] AGE/SX: 82/M ROOM: [facility] [place] RE12/06/[address]: Dr. Rip Russell, : 1940 BED: 1 DIS: 12/12/2022 SPEC #: [id number] RECD: 12/07/22 16:23 STATUS: AMY REQ #: [id number] BUSTER: 12/07/22 13:[address]: Haresh Vázquez DEPT: SURGICAL PATHOLOGY RECD BY: Thalia Mckeon ENTERED: 12/10/22 09:38 SP TYPE: FEM HEAD OTHR DR: MD Dr. Judy Webb MD Dr. Efewongbe Oleghe, MD Dr. Ifijen Oleghe, MD Dr. Jeffrey Watts, DO Dr. Demetri Grossman, DO Dr. Rip Russell, DO Dr. Isaías Gray, DO MD Dr. Aaron Mistry MD Dr. Timothy J Miller, DPM CASSIDY Quigley PA Raymond Eshenaur, PA-C Thomas Janas, PA-C Tissues: Femoral region, NOS Procedures: Decalcification bone/plaque Surgery Specimen Level IV Comments: @ Ordering doctor for DEC edited from to @ by CHAPIN at 12/10/22 145 @ Ordering doctor for SUV edited from to @ by CHAPIN at 12/10/22 1456 @ Submitting doctor edited from to @ by CHAPIN at 12/10/22 1456 HEADER OPERATION: Right hip hemiarthroplasty, cemented PRE-OP DIAGNOSIS: Displaced right femoral neck fracture TISSUE SUBMITTED: Right femoral neck and soft tissue MICROSCOPIC DIAGNOSIS Right femoral head and soft tissue, total hip replacement/resection: Femoral head and detached pieces of bone with focal area of hemorrhage, clinically displaced right femoral neck fracture. A piece of fibroadipose tissue, fibroconnective tissue and reactive synovial tissue. Focal change consistent with pseudogout. SJ:valentina 12/13/2022 MICROSCOPIC DESCRIPTION Slides are reviewed. GROSS DESCRIPTION Received is one container labeled with the patient's name and designated right femoral neck and soft tissue. The specimen consists of a whitlock femoral head measuring 5.0 x 5.0 x 3.5 cm. The articular surface is smooth. Resection margin is irregular and hemorrhagic. Also present in the specimen container are multiple detached pieces of bone measuring in aggregate 5.0 x 5.0 x 1.0 cm. A piece of soft tissue attached to the top of femoral head measures 2.5 x 1.0 x 0.2 cm. Quarry Boss sections are submitted in three cassettes as follows: 1 - entire soft tissue, 2 - detached pieces of bone, 3 - femoral head. Cassettes 2 & 3 are submitted after decalcification. / GASTON:valentina 12/10/2022 TC:5 CPT: 67020, 23983
[2022-12-07] MEDS: Lactated Ringers 1,000 ML 15 ML IV (13:45)
[2022-12-07] MEDS: TXA 1000mg in NS100 100ml (IVPB at Incision) 660 MG IV (14:22)
[2022-12-07] MEDS: Bupivacaine 0.25% 30 ML Vial (16:02)
--- NOTE | 2022-12-07 16:13 | PCM.OPRPT ---
Report of Operation Date of Procedure: 12/07/22 Pre-Operative Diagnosis: right femoral neck fracture Post-Operative Diagnosis: same Surgery/Procedure Performed:: right hip cemented hemiarthroplasty Surgeon: Haresh Vázquez Type of Anesthesia: General and Local Anesthesiologist: Ho Metz Estimated Blood Loss (mL): 100 Description of Procedure: Patient brought to the operating room theater.? Placed supine on the table.? General anesthesia induced.? 2 g IV Ancef administered prior to the start of the procedure.? Patient transferred right side up lateral decubitus with the aid of the positioner pegboard.? All bony prominences padded axillary roll placed.? SCD on the nonoperative leg.? Leg prepped and draped in the usual sterile fashion with chlorhexidine-based prep solution allowing over 3 minutes drying time prior to draping.? Preoperative timeout performed to confirm the site patient and the surgery. Began by making a standard lateral incision at the proximal femur.? Carried dissection down through skin and subcutaneous tissue to meticulous hemostasis.? Incised the tensor fascia apple in line with skin incision.? Remove the greater trochanteric bursa.? Sharply released the anterior one third of the abductors off the greater trochanter.? Carried dissection down through down to the hip capsule.? Made a T-shaped capsulotomy.? Tagged each limb.? Made the neck cut about 1cm above the level of the lesser trochanter.? Removed the head using the corkscrew device.? Sized the head to 51mm. Use lateralized box fabricator osteotome followed by the canal finder and a reamer up to a size 6 to plan for Jw Accolade cemented Raul hip.? Size 6 a bit tight distally so had to use the flexible reamers, size 13 to get the component to fit distally. Trial reduction was appropriate stable in flexion internal rotation and external rotation with extension.? No impingement moved stable through range of motion with normal leg lengths equal on both sides.? The trial components were removed canal prepped using pulse lavage.? Cement restrictor was placed.? Measured for the distal centralizer - large.? Chose a [place] Accolade size 6 127 degree -3mm head with 51mm bipolar head.? Used third-generation cement mixing techniques.? Pressurized the cement in the canal patient stable through pressurization.? Then I inserted the stem in appropriate version and allowed the cement to fully harden and remove any excess cement.? Trunnion was fully cleaned followed by impaction of the bipolar head.? Patient stable through cementing. Reduction was then performed this was again trialed and felt to be stable.? Irrisept was used to thoroughly irrigate the joint and wound.? The capsule was closed with #1 Vicryl the abductors were then repaired to the greater trochanter with FiberWire suture through bone tunnels.? I then closed the tensor fascia apple with a running strata fix #1 suture.? Subcutaneous tissue closed with running 2-0 Vicryl sutures and skin with 3-0 Monocryl. 10 cc quarter percent bupivacaine instilled in and around the incision site.? Skin cleaned with wet and dry dressing followed application of Steri-Strips and silver Mepilex.? Patient woken up from the general anesthetic transferred off the operating table and taken to postanesthetic care unit in stable addition.? All sponge needle instrument counts were correct no complications.? Plan for the patient xarelto pod 1 for VTE and xray in PACU. Complications none Admit VTE Documentation VTE Present on Admission: No VTE Mechan Device Prophylaxis: SCD's VTE Pharm Prophylaxis ordered?: Yes Procedures Musculoskeletal [id number]: Other Procedure See Report
--- NOTE | 2022-12-07 16:35 | RAD_ITS ---
INDICATION: post op EXAMINATION/TECHNIQUE: X-RAY - XR Hip Unilateral with Pelvis when performed; 2-3 Views COMPARISON: None. FINDINGS: PELVIC BONES: No displaced fracture, destructive or sclerotic lesions. Note that overlapping bowel shadows may however obscure fine detail. Sacroiliac joints demonstrate mild degenerative changes. No widening of the pubic symphysis. HIPS: There is a right hip arthroplasty in good alignment. SOFT TISSUES: No soft tissue swelling or gas. RAD/Pelvis 1 or 2 Views IMPRESSION: There is a right hip arthroplasty in good alignment. Electronically Signed: Hakeem Serna MD at 17:24 EDT ,
[2022-12-07] MEDS: Tamsulosin HCl 0.4 MG Capsule 0.8 MG PO (21:53)
[2022-12-08] VITALS (9 sets, daily range): BP systolic 110–125; BP diastolic 62–74; PULSE 103–110; RESP 16–24; TEMP 36.6–37.1; O2SAT 91–98
[2022-12-08] MEDS: oxyCODONE 5 MG Tablet PO ×3 (02:58→12:23)
[2022-12-08] MEDS: Acetaminophen 500 MG Tablet 1000 MG PO ×3 (05:43→20:49)
--- NOTE | 2022-12-08 06:23 | PCM.PN.HOSP ---
Reason for Visit Reason for Visit: Diagnoses Nicotine dependence, unspecified, uncomplicated (12/06/22) Essential (primary) hypertension (12/06/22) Fracture of unspecified part of neck of right femur, initial encounter for closed fracture (12/06/22) Encounter for preprocedural cardiovascular examination (12/06/22) Presence of other vascular implants and grafts (12/06/22) Subjective Subjective Overnight per nursing staff and per patient notable pain requesting several doses of pain medications and unfortunately declining to move much with initially minimal usage of I-S with mild hypoxia requiring low-dose supplementation. This morning aggressive I-S encouraged and patient was able to wean to room air. Discussed at length necessity to begin more aggressive therapy and activity to which patient was amenable but resistant to some degree. Patient denies fevers, chills, nausea, emesis, abdominal pain, chest pain or dyspnea. Objective Data Objective Data Vital Signs: Vital Signs Temp Pulse Resp BP Pulse Ox O2 Del Method O2 Flow Rate 98.2 F 107 H 24 H 121/74 H 94 Room Air 2 12/08/22 05:44 12/08/22 05:44 12/08/22 05:44 12/08/22 05:44 12/08/22 05:44 12/08/22 05:44 12/08/22 01:36 Oxygen Flow Rate (L/min) 2 Oxygen Delivery Method Room Air Weight: 152 lb 9 oz Body Mass Index (BMI) 23.1 Intake & Output: Intake and Output for Last 24 Hours 12/06/22 12/07/22 12/08/22 23:59 23:59 23:59 Intake Total 1000 / 1000 1220 / 1620 1012.25 / 1012.25 Output Total 950 / 1075 475 / 475 Balance 1000 / 750 270 / 545 537.25 / 537.25 Lab / Micro Data Result Diagrams: 12/08/22 06:10 12/08/22 06:10 Labs: Laboratory Results - last 24 hr 12/07/22 05:15: Blood Type A NEGATIVE, Antibody Screen NEGATIVE Radiography Diagnostic Testing: Radiology Impression Pelvis X-Ray 12/07/22 16:35 IMPRESSION: There is a right hip arthroplasty in good alignment. Electronically Signed: Hakeem Serna MD at 17:24 EDT , Rhythm Strip Rhythm Strip: Sinus Rhythm Physical Exam Narrative Physical Examination: General: Awake, alert, oriented x 3 and cooperative, laying in the medical surgical bed, fatigued, notes pain currently controlled with recent medication, status post right hip surgery for fracture Skin: Normal color, normal turgor, no icterus, no cyanosis except for occasional staged ecchymoses and right hip dressing in place with no drainage. HEENT: AT/NC, EOMI, PERRLA, MMM. Lungs: Mildly diminished, greater bases, appropriate effort, no rales, ronchi or wheezing. Heart: Mildly tachycardic with regular rhythm; no gallop, rub audible. Abdomen: Soft, NTTP, ND, normal BS. Extremities: No cyanosis, no clubbing, no marked peripheral pitting edema, pulses intact, status post mechanical fall with right hip fracture status post surgery, dressing in place, no drainage.. Neurological: Patient awake, alert, oriented as noted, cognitive function intact; pupils equally reactive to light and accommodation, cranial nerves II-XII grossly normal, moving all 4 extremities although expected limitation especially right lower extremity given recent OR for hip fracture, strength accordingly severely globally decreased. Psychiatric: Affect appears fatigued, no acute evidence of depressive or anxiety feelings. Assessment & Plan Assessment/Plan (1) Displaced fracture of right femoral neck: PLAN: Plan The patient is an 82 y/o M w/ PMHx: AAA, EtOH abuse, CAD/Ischemic cardiomyopathy, BPH, COPD, GERD w/ Hx Gastic ulcer, HTN, HLD who presents to the [facility] ED on 12/06/22 with history of chronic right hip pain noting that it catches frequently however the day prior he stepped forward and felt his right hip catch unfortunate prompting him to fall down with intractable ongoing right hip pain prompting eventual ED evaluation. #1. General debility, right hip pain s/p mechanical fall w/ right subcapital fracture fracture: Chest x-ray with stable chronic lung changes no acute cardiopulmonary findings, plain film of the right hip with evidence of right subcapital fracture, admission CBC with WC 10.1, hemoglobin 1.8, MCV 84.4, no marked shift, unremarkable CMP. Orthopedic surgery consulted from ED. Admitted to [facility], evaluated by cardiology and cleared for OR, 12/07/2022 right hip cemented hemiarthroplasty per Dr. Vázquez, monitor I/Os, frequent positioning, fall precautions, as needed pain, anti-emetic regimen, 12/08/2022 requested Keen catheter be removed. PT/OT following operative intervention. CM consulted for discharge planning. Suspect patient will need skilled facility placement. #2. Chronic normocytic anemia: Admission hemoglobin 11.8, prior baseline appears primarily 10-12, stable, 12/07/2022 11.7-->12/08/22 Hgb 10.8, continue to trend. #3. Chronic hyponatremia: Admission sodium 131, baseline primarily 130-1 35, stable, 12/08/22 Na 133, stable, continue to trend. #4. Suspected EtOH Abuse: Patient noted routine consumption of at least 1-3 beers, usually at least 2 per day but chart reports history of EtOH abuse. Will maintain on CIWA protocol, MVI, thiamine and folic acid. Case management consulted and following. #5. CAD/ischemic cardiomyopathy: We will continue aspirin, Coreg, losartan, not on statin therapy, moderate dose added. 09/07/2020 echocardiogram with normal LV systolic function, EF 55%, no regional wall motion abnormalities, mild concentric LVH with contrast injection performed. #6. AAA: s/p endovascular stenting/grafting, will continue aspirin, Coreg, losartan, not on statin therapy, moderate dose added. #7. Chronic COPD: Will hold patient home inhaler in the interim transition to ATC budesonide therapy, as needed albuterol, encourage head of bed and I-S. #8. Hypertension: Continue home regimen including Coreg, losartan with hold parameters as needed, PRN hydralazine. #9. Hyperlipidemia: Not on regimen, defer to outpatient. #10. BPH: We will continue patient home Flomax regimen. #11. GERD: We will continue patient home omeprazole regimen. #12. DVT prophylaxis: Xarelto per Orthopedic surgery preference. #13. CODE STATUS: Full code. Admission Evaluation Time spent evaluating chart, patient history, patient evaluation, care planning and discussion with specialists: 35 minutes. Charges/Coding Visit Charges Inpatient E&M: 62947 Subs Hosp L2
[2022-12-08] MEDS: Albuterol 2.5 MG/3 ML VIAL.NEB. INHALATION ×3 (06:56→19:20)
[2022-12-08] MEDS: Budesonide Respules 0.5 MG/2 ML AMPUL.NEB. INHALATION ×2 (06:56→19:20)
[2022-12-08 07:19] LABS: Absolute Neutrophil Count 6.9 X10^3/uL (2.0-7.7); Basophil# 0.04 X10^3/uL; Basophil% 0.4 % (0-1); Eosinophil# 0.02 X10^3/uL; Eosinophils% 0.2 % (0-5); Hematocrit 33.1 % (40-54); Hemoglobin 10.8 g/dL (13.0-16.5); Lymphocyte % 14.3 % (19-41); Mean Corpuscular Hgb 28.2 pg (27.0-32.0); Mean Corpuscular Volume 86.4 fL (80-94); Mean Platelet Vol. 9.2 fl (6.2-12.0); Monocyte# 1.47 X10^3/uL; NRBC Flagged by Analyzer 0 % (0-5); Neutrophil # 6.85 X10^3/uL (2.7-7.7); Neutrophil % 69.7 % (47-70); Platelet Count 237 K/mm3 (150-450); RBC Distribution Width CV 16.2 % (11.6-14.6); RBC Distribution Width SD 50.4 fl (35.1-43.9); Red Blood Count 3.83 M/mm3 (4.6-6.2); White Blood Count 9.8 K/mm3 (4.4-11.0)
[2022-12-08 07:22] LABS: Mean Corp Hgb Conc 32.6 g/dL (32-36)
[2022-12-08] MEDS: Multivitamins,Therapeutic Tablet 1 TABLET PO (07:22)
[2022-12-08] MEDS: Thiamine Hydrochloride 100 MG Tablet PO (07:22)
[2022-12-08] MEDS: Carvedilol 3.125 MG TABLET PO (07:22)
[2022-12-08] MEDS: Losartan Potassium 50 MG Tablet PO (07:22)
[2022-12-08] MEDS: Aspirin 81 MG TAB.CHEW PO (07:22)
[2022-12-08] MEDS: Pantoprazole Sodium 40 MG Tablet PO (07:22)
[2022-12-08] MEDS: Folic Acid 1 MG Tablet PO (07:22)
[2022-12-08 07:49] LABS: ALB/GLOB Ratio 0.8 RATIO (0.9-2.4); AST(SGOT) 31 U/L (15-37); Alanine Aminotransfer ALT/SGPT 19 U/L (16-61); Albumin, Serum 2.8 g/dL (3.2-5.0); Alkaline Phosphatase 83 U/L (45-117); Anion Gap 7 (5-15); BUN 10 mg/dL (7-18); BUN/Creat Ratio 12.8 RATIO (10-20); Calcium,Total 8.5 mg/dL (8.5-10.1); Chloride 104 mmol/L (98-107); Creatinine, Serum 0.78 mg/dL (0.70-1.30); EST Glomerular Filtration Rate 101 mL/min (>60); Est Glom Filt Rate - Afr Amer 122 mL/min (>60); Globulin 3.5 g/dL (2.2-4.2); Glucose 120 mg/dL (74-106); Potassium 3.8 mmol/L (3.5-5.1); Protein, Total 6.3 g/dL (6.4-8.2); Sodium Level 133 mmol/L (136-145)
--- NOTE | 2022-12-08 13:28 | CASEMGMT ---
Noted therapy evals, discussed with
--- NOTE | 2022-12-08 13:48 | PN.ORTHO_ITS ---
Subjective Subjective Pain improved but present. was up three times. Objective Data Objective Data Vital Signs: Vital Signs Temp Pulse Resp BP Pulse Ox O2 Del Method O2 Flow Rate 98.4 F 110 H 20 H 110/64 92 Room Air 2 12/08/22 11:17 12/08/22 13:03 12/08/22 13:03 12/08/22 11:17 12/08/22 11:17 12/08/22 11:17 12/08/22 01:36 Oxygen Flow Rate (L/min) 2 Oxygen Delivery Method Room Air Weight: 152 lb 9 oz Body Mass Index (BMI) 23.1 Intake & Output: Intake and Output for Last 24 Hours 12/06/22 12/07/22 12/08/22 23:59 23:59 23:59 Intake Total 1000 / 1000 1220 / 1620 1262.25 / 1262.25 Output Total 950 / 1075 475 / 475 Balance 1000 / 750 270 / 545 787.25 / 787.25 Lab / Micro Data Attestation: I reviewed the patient's lab results. Result Diagrams: 12/08/22 06:10 12/08/22 06:10 Labs: Laboratory Results - last 24 hr 12/08/22 06:10: WBC 9.8, RBC 3.83 L, Hgb 10.8 L, Hct 33.1 L, MCV 86.4, MCH 28.2, MCHC 32.6 D, RDW Std Deviation 50.4 H, RDW Coeff of Tea 16.2 H, Plt Count 237, MPV 9.2, Immature Gran % (Auto) 0.400, Neut % (Auto) 69.7, Lymph % (Auto) 14.3 L , [place] % (Auto) 15.0 H, Eos % (Auto) 0.2, Baso % (Auto) 0.4, Absolute Neuts (auto) 6.9, Absolute Lymphs (auto) 1.40, Nucleated RBC % 0 12/08/22 06:10: Sodium 133 L, Potassium 3.8, Chloride 104, Carbon Dioxide 22.0, Anion Gap 7, BUN 10, Creatinine 0.78, Estim Creat Clear Calc 55.10, Est GFR (M DRD) Af Amer 122, Est GFR (MDRD) Non-Af 101, BUN/Creatinine Ratio 12.8, Glucose 120 H, Calcium 8.5, Total Bilirubin 1.00, AST 31, ALT 19, Alkaline Phosphatase 83, Total Protein 6.3 L, Albumin 2.8 L, Globulin 3.5, Albumin/Globulin Ratio 0.8 L Radiography Diagnostic Testing: Radiology Impression Pelvis X-Ray 12/07/22 16:35 IMPRESSION: There is a right hip arthroplasty in good alignment. Electronically Signed: Hakeem Serna MD at 17:24 EDT , Rhythm Strip Rhythm Strip: Sinus Rhythm Physical Exam Const alert, oriented x3 and no apparent distress General Appearance: cooperative and well developed Extremity normal capillary refill Extremity Narrative: drsg dry, nvi, wiggles toes, good dp pulse, normal sens to all 5 Assessment & Plan Assessment/Plan (1) Displaced fracture of right femoral neck: PLAN: WBAT. PT/OT. Change dressing POD4. Progressing as expected.
--- NOTE | 2022-12-08 14:56 | CASEMGMT ---
Social Work SW introduced self and role to patient. SW discussed discharge planning and patient would like to go to [facility] if SNF needed. At this point, SNF is being recommended. [facility]. Pt reports if [facility] is not available, he would like TCU. Anastasiya Vasquez MOSS GATHERER, FLAT SURFACER
[2022-12-08] MEDS: Rivaroxaban 10 MG Tablet PO (16:49)
[2022-12-08] MEDS: Tamsulosin HCl 0.4 MG Capsule 0.8 MG PO (20:50)
[2022-12-08] MEDS: Atorvastatin Calcium 20 MG Tablet PO (20:53)
[2022-12-09] VITALS (10 sets, daily range): BP systolic 123–136; BP diastolic 66–78; PULSE 90–108; RESP 16–24; TEMP 36.6–36.8; O2SAT 92–97
[2022-12-09] MEDS: oxyCODONE 5 MG Tablet PO ×3 (03:19→20:30)
[2022-12-09] MEDS: Acetaminophen 500 MG Tablet 1000 MG PO ×3 (05:32→21:12)
[2022-12-09 06:17] LABS: Absolute Lymphocyte Count 1.19 X10^3/uL (0.83-4.51); Absolute Neutrophil Count 6.8 X10^3/uL (2.0-7.7); Basophil# 0.02 X10^3/uL; Basophil% 0.2 % (0-1); Eosinophil# 0.01 X10^3/uL; Eosinophils% 0.1 % (0-5); Hematocrit 30.7 % (40-54); Hemoglobin 10.2 g/dL (13.0-16.5); Lymphocyte # 1.19 X10^3/ul (0.83-4.51); Lymphocyte % 12.6 % (19-41); Mean Corp Hgb Conc 33.2 g/dL (32-36); Mean Corpuscular Hgb 28.2 pg (27.0-32.0); Mean Corpuscular Volume 84.8 fL (80-94); Mean Platelet Vol. 8.8 fl (6.2-12.0); Monocyte# 1.38 X10^3/uL; Monocyte% 14.6 % (0-10); NRBC Flagged by Analyzer 0 % (0-5); Neutrophil # 6.77 X10^3/uL (2.7-7.7); Platelet Count 253 K/mm3 (150-450); RBC Distribution Width CV 16.3 % (11.6-14.6); RBC Distribution Width SD 49.8 fl (35.1-43.9); Red Blood Count 3.62 M/mm3 (4.6-6.2); White Blood Count 9.4 K/mm3 (4.4-11.0)
[2022-12-09 06:44] LABS: ALB/GLOB Ratio 0.7 RATIO (0.9-2.4); AST(SGOT) 32 U/L (15-37); Alanine Aminotransfer ALT/SGPT 18 U/L (16-61); Albumin, Serum 2.5 g/dL (3.2-5.0); Alkaline Phosphatase 76 U/L (45-117); Anion Gap 5 (5-15); BUN 11 mg/dL (7-18); BUN/Creat Ratio 15.6 RATIO (10-20); Calcium,Total 8.5 mg/dL (8.5-10.1); Chloride 105 mmol/L (98-107); EST Glomerular Filtration Rate 114 mL/min (>60); Est Glom Filt Rate - Afr Amer 138 mL/min (>60); Globulin 3.7 g/dL (2.2-4.2); Glucose 125 mg/dL (74-106); Protein, Total 6.2 g/dL (6.4-8.2); Sodium Level 136 mmol/L (136-145)
[2022-12-09] MEDS: Budesonide Respules 0.5 MG/2 ML AMPUL.NEB. INHALATION ×2 (07:04→19:37)
[2022-12-09] MEDS: Albuterol 2.5 MG/3 ML VIAL.NEB. INHALATION ×2 (07:04→13:23)
[2022-12-09] MEDS: Losartan Potassium 50 MG Tablet PO (07:36)
[2022-12-09] MEDS: Multivitamins,Therapeutic Tablet 1 TABLET PO (07:36)
[2022-12-09] MEDS: Thiamine Hydrochloride 100 MG Tablet PO (07:36)
[2022-12-09] MEDS: Carvedilol 3.125 MG TABLET PO (07:36)
[2022-12-09] MEDS: Aspirin 81 MG TAB.CHEW PO (07:36)
[2022-12-09] MEDS: Folic Acid 1 MG Tablet PO (07:37)
[2022-12-09] MEDS: Pantoprazole Sodium 40 MG Tablet PO (07:37)
[2022-12-09] MEDS: Rivaroxaban 10 MG Tablet PO (16:46)
--- NOTE | 2022-12-09 16:46 | PN.HOSP_ITS ---
Reason for Visit Reason for Visit: Diagnoses Nicotine dependence, unspecified, uncomplicated (12/06/22) Essential (primary) hypertension (12/06/22) Fracture of unspecified part of neck of right femur, initial encounter for c losed fracture (12/06/22) Encounter for preprocedural cardiovascular examination (12/06/22) Presence of other vascular implants and grafts (12/06/22) Subjective Subjective Was seen and examined today, he has no complaints to this examiner, he is not experiencing any shortness of breath or chest discomfort. Objective Data Objective Data Vital Signs: Vital Signs Temp Pulse Resp BP Pulse Ox O2 Del Method O2 Flow Rate 98.1 F 99 16 131/66 H 95 Room Air 2 12/09/22 15:16 12/09/22 15:16 12/09/22 15:16 12/09/22 15:16 12/09/22 15:16 12/09/22 15:16 12/08/22 01:36 Oxygen Flow Rate (L/min) 2 Oxygen Delivery Method Room Air Weight: 69.201 kg Body Mass Index (BMI) 23.1 Intake & Output: Intake and Output for Last 24 Hours 12/07/22 12/08/22 12/09/22 23:59 23:59 23:59 Intake Total 1220 / 1620 1712.25 / 2212.25 950 / 950 Output Total 950 / 1075 575 / 800 625 / 625 Balance 270 / 545 1137.25 / 1412.25 325 / 325 Lab / Micro Data Result Diagrams: 12/09/22 06:00 12/09/22 06:00 Labs: Laboratory Results - last 24 hr 12/09/22 06:00: WBC 9.4, RBC 3.62 L, Hgb 10.2 L, Hct 30.7 L, MCV 84.8, MCH 28.2, MCHC 33.2, RDW Std Deviation 49.8 H, RDW Coeff of Tea 16.3 H, Plt Count 253, MPV 8.8, Immature Gran % (Auto) 0.500, Neut % (Auto) 72.0 H, Lymph % (Auto) 12.6 L, [place] % (Auto) 14.6 H, Eos % (Auto) 0.1, Baso % (Auto) 0.2, Absolute Neuts (auto) 6.8, Absolute Lymphs (auto) 1.19, Nucleated RBC % 0 12/09/22 06:00: Sodium 136, Potassium 4.0, Chloride 105, Carbon Dioxide 26.0, Anion Gap 5, BUN 11, Creatinine 0.70, Estim Creat Clear Calc 55.10, Est GFR (MDRD) Af Amer 138, Est GFR (MDRD) Non-Af 114, BUN/Creatinine Ratio 15.6, Glucose 125 H, Calcium 8.5, Total Bilirubin 1.00, AST 32, ALT 18, Alkaline Phosphatase 76, Total Protein 6.2 L, Albumin 2.5 L, Globulin 3.7, Albumin/Globulin Ratio 0.7 L Rhythm Strip Rhythm Strip: Sinus Rhythm Physical Exam Const alert, oriented x3, no apparent distress and healthy appearing General Appearance: cooperative, well kempt and well developed Orientation / Consciousness: awake, oriented to person, oriented to place and oriented to time HEENT normocephalic, head/scalp atraumatic and moist oral mucous membranes Eyes PERRL, EOMs intact bilaterally and conjunctivae normal Neck supple, no JVD, thyroid normal and no carotid bruits General: trachea midline Resp normal respiratory effort, no retractions, no use of accessory muscles and clear to auscultation bilaterally Auscultation: Negative for rales, rhonchi or wheezes Cardio regular rate, regular rhythm, S1 normal heart sound, S2 normal heart sound, no murmurs, no rub and no gallops GI normal to inspection, nondistended, normoactive bowel sounds, soft to palpation, non-tender and non-distended Extremity no clubbing, cyanosis or edema Skin no rashes or lesions noted General Skin Exam: no breakdown Neuro oriented x3, CN's II-XII intact bilaterally, moves all extremities, no focal motor deficits and no sensory deficits noted Sensorium / Orientation: awake and alert Speech: speech normal Psych affect normal Assessment & Plan Assessment/Plan (1) Displaced fracture of right femoral neck: PLAN: Plan 1. Right femoral neck fracture-postop day #2 right hip cemented hemiarthroplasty-continue PT and OT, patient is awaiting approval for short-term placement in a skilled rehab facility for rehab services. #2 coronary artery disease-stable at this time, patient remains on his home me dications #3 chronic obstructive pulmonary disease-brewster stable at this time, continue present medication #4 essential hypertension-continue home medications #5 BPH-patient is on Flomax Total clinical time spent by myself addressing the patient's medical issues, reviewing all of his data, and collaborating with patient's care team: 35 minutes Charges/Coding Visit Charges Inpatient E&M: 83647 Subs Hosp L2
[2022-12-09] MEDS: Tamsulosin HCl 0.4 MG Capsule 0.8 MG PO (21:11)
[2022-12-09] MEDS: Atorvastatin Calcium 20 MG Tablet PO (21:11)
[2022-12-10 01:15] VITALS: BP 127/82; PULSE 98; RESP 18; TEMP 36.9; O2SAT 95
[2022-12-10] MEDS: oxyCODONE 5 MG Tablet PO ×3 (04:47→17:45)
[2022-12-10] MEDS: Acetaminophen 500 MG Tablet 1000 MG PO ×3 (04:48→20:00)
[2022-12-10 05:02] VITALS: BP 128/71; PULSE 90; RESP 18; TEMP 36.7; O2SAT 95
[2022-12-10 06:11] LABS: Absolute Lymphocyte Count 0.78 X10^3/uL (0.83-4.51); Absolute Neutrophil Count 6.6 X10^3/uL (2.0-7.7); Basophil# 0.03 X10^3/uL; Basophil% 0.4 % (0-1); Eosinophil# 0.11 X10^3/uL; Eosinophils% 1.3 % (0-5); Hematocrit 28.2 % (40-54); Hemoglobin 9.5 g/dL (13.0-16.5); Lymphocyte # 0.78 X10^3/ul (0.83-4.51); Lymphocyte % 9.1 % (19-41); Mean Corp Hgb Conc 33.7 g/dL (32-36); Mean Corpuscular Hgb 28.2 pg (27.0-32.0); Mean Corpuscular Volume 83.7 fL (80-94); Mean Platelet Vol. 8.9 fl (6.2-12.0); Monocyte# 1.01 X10^3/uL; Monocyte% 11.8 % (0-10); NRBC Flagged by Analyzer 0 % (0-5); Neutrophil % 76.9 % (47-70); Platelet Count 280 K/mm3 (150-450); RBC Distribution Width SD 49.1 fl (35.1-43.9); Red Blood Count 3.37 M/mm3 (4.6-6.2); White Blood Count 8.6 K/mm3 (4.4-11.0)
[2022-12-10 06:40] LABS: ALB/GLOB Ratio 0.6 RATIO (0.9-2.4); AST(SGOT) 38 U/L (15-37); Alanine Aminotransfer ALT/SGPT 23 U/L (16-61); Albumin, Serum 2.3 g/dL (3.2-5.0); Alkaline Phosphatase 88 U/L (45-117); Anion Gap 5 (5-15); BUN 13 mg/dL (7-18); BUN/Creat Ratio 21.1 RATIO (10-20); Calcium,Total 8.4 mg/dL (8.5-10.1); Chloride 103 mmol/L (98-107); Creatinine, Serum 0.62 mg/dL (0.70-1.30); EST Glomerular Filtration Rate 133 mL/min (>60); Est Glom Filt Rate - Afr Amer 161 mL/min (>60); Globulin 3.7 g/dL (2.2-4.2); Glucose 130 mg/dL (74-106); Potassium 3.5 mmol/L (3.5-5.1); Sodium Level 133 mmol/L (136-145)
[2022-12-10 07:25] VITALS: PULSE 99; RESP 16; O2SAT 92
[2022-12-10] MEDS: Budesonide Respules 0.5 MG/2 ML AMPUL.NEB. INHALATION ×2 (07:26→19:34)
[2022-12-10 07:53] VITALS: BP 123/68; PULSE 100; RESP 20; TEMP 36.7; O2SAT 95
[2022-12-10] MEDS: Multivitamins,Therapeutic Tablet 1 TABLET PO (08:06)
[2022-12-10] MEDS: Aspirin 81 MG TAB.CHEW PO (08:06)
[2022-12-10] MEDS: Carvedilol 3.125 MG TABLET PO (08:06)
[2022-12-10] MEDS: Pantoprazole Sodium 40 MG Tablet PO (08:07)
[2022-12-10] MEDS: Losartan Potassium 50 MG Tablet PO (08:07)
--- NOTE | 2022-12-10 09:25 | CASEMGMT ---
[facility]charge [facility] Janna Alberto, Discharge Planning Asst.
--- NOTE | 2022-12-10 11:42 | CASEMGMT ---
Discharge Planning OP unable to accept patient d/t no male bed availability. Janna Alberto, Discharge Planning Asst.
--- NOTE | 2022-12-10 11:49 | CASEMGMT ---
Social Work Referral made to TCU per patient, as this is second choice. Sydney on TCU to let this criminal justice social worker now if patient is accepted. PLAN: TCU, pending acceptance and pre-cert. Gerry DOUGLAS, LUIS
--- NOTE | 2022-12-10 11:51 | CASEMGMT ---
Discharge Planning Patient notified that [facility] is unable to accept and that SW made referral to TCU. Patient does not want any other SNF, nor does he want HH d/t having a large dog in his home. RN REYNALDO and APOLINAR made aware. Janna Alberto, Discharge Planning Asst.
--- NOTE | 2022-12-10 14:24 | CASEMGMT ---
Discharge Planning Patient has been accepted to TCU. Precert to be submitted today. Both patient and his made aware. Janna Alberto, Discharge Planning Asst.
[2022-12-10] MEDS: Rivaroxaban 10 MG Tablet PO (17:25)
--- NOTE | 2022-12-10 18:49 | PCM.PN.HOSP ---
Reason for Visit Reason for Visit: Diagnoses Nicotine dependence, unspecified, uncomplicated (12/06/22) Essential (primary) hypertension (12/06/22) Fracture of unspecified part of neck of right femur, initial encounter for closed fracture (12/06/22) Encounter for preprocedural cardiovascular examination (12/06/22) Presence of other vascular implants and grafts (12/06/22) Subjective Subjective Patient was seen and examined today, he was declined at the alf facility the he applied to for admission by the facility. We are attempting to get TCU approved for the patient, he states that if TCU will not get approval, he would like to go home. Objective Data Objective Data Vital Signs: Vital Signs Temp Pulse Resp BP Pulse Ox O2 Del Method O2 Flow Rate 98.0 F 100 20 H 123/68 H 95 Room Air 2 12/10/22 07:53 12/10/22 07:53 12/10/22 07:53 12/10/22 07:53 12/10/22 07:53 12/10/22 15:35 12/08/22 01:36 Oxygen Flow Rate (L/min) 2 Oxygen Delivery Method Room Air Weight: 69.201 kg Body Mass Index (BMI) 23.1 Intake & Output: Intake and Output for Last 24 Hours 12/08/22 12/09/22 12/10/22 23:59 23:59 23:59 Intake Total 1712.25 / 2212.25 1350 / 1350 1120 / 1120 Output Total 575 / 800 1075 / 1075 440 / 440 Balance 1137.25 / 1412.25 275 / 275 680 / 680 Lab / Micro Data Result Diagrams: 12/10/22 05:35 12/10/22 05:35 Labs: Laboratory Results - last 24 hr 12/10/22 05:35: WBC 8.6, RBC 3.37 L, Hgb 9.5 L, Hct 28.2 L, MCV 83.7, MCH 28.2, MCHC 33.7, RDW Std Deviation 49.1 H, RDW Coeff of Tea 16.0 H, Plt Count 280, MPV 8.9, Immature Gran % (Auto) 0.500, Neut % (Auto) 76.9 H, Lymph % (Auto) 9.1 L, [place] % (Auto) 11.8 H, Eos % (Auto) 1.3, Baso % (Auto) 0.4, Absolute Neuts (auto) 6.6, Absolute Lymphs (auto) 0.78 L, Nucleated RBC % 0 12/10/22 05:35: Sodium 133 L, Potassium 3.5, Chloride 103, Carbon Dioxide 25.0, Anion Gap 5, BUN 13, Creatinine 0.62 L, Estim Creat Clear Calc 55.10, Est GFR (MDRD) Af Amer 161, Est GFR (MDRD) Non-Af 133, BUN/Creatinine Ratio 21.1 H, Glucose 130 H, Calcium 8.4 L, Total Bilirubin 1.10 H, AST 38 H, ALT 23, Alkaline Phosphatase 88, Total Protein 6.0 L, Albumin 2.3 L, Globulin 3.7, Albumin/Globulin Ratio 0.6 L Rhythm Strip Rhythm Strip: Sinus Rhythm Physical Exam Narrative alert, oriented x3, no apparent distress and healthy appearing General Appearance: cooperative, well kempt and well developed Orientation / Consciousness: awake, oriented to person, oriented to place and oriented to time HEENT normocephalic, head/scalp atraumatic and moist oral mucous membranes Eyes PERRL, EOMs intact bilaterally and conjunctivae normal Neck supple, no JVD, thyroid normal and no carotid bruits General: trachea midline Resp normal respiratory effort, no retractions, no use of accessory muscles and clear to auscultation bilaterally Auscultation: Negative for rales, rhonchi or wheezes Cardio regular rate, regular rhythm, S1 normal heart sound, S2 normal heart sound, no murmurs, no rub and no gallops GI normal to inspection, nondistended, normoactive bowel sounds, soft to palpation, non-tender and non-distended Extremity no clubbing, cyanosis or edema Skin no rashes or lesions noted General Skin Exam: no breakdown Neuro oriented x3, CN's II-XII intact bilaterally, moves all extremities, no focal motor deficits and no sensory deficits noted Sensorium / Orientation: awake and alert Speech: speech normal Psych affect normal Assessment & Plan Assessment/Plan (1) Displaced fracture of right femoral neck: PLAN: Plan 1. Right femoral neck fracture-postop day #3 right hip cemented hemiarthroplasty-continue PT and OT, patient is awaiting approval for short-term placement in a skilled rehab facility for rehab services. #2 coronary artery disease-stable at this time, patient remains on his home medications #3 chronic obstructive pulmonary disease-brewster stable at this time, continue present medication #4 essential hypertension-continue home medications #5 BPH-patient is on Flomax Total clinical time spent by myself addressing the patient's medical issues, reviewing all of his data, and collaborating with patient's care team: 35 minutes Charges/Coding Visit Charges Inpatient E&M: 27780 Subs Hosp L2
[2022-12-10 19:35] VITALS: PULSE 94; RESP 16
[2022-12-10] MEDS: Atorvastatin Calcium 20 MG Tablet PO (19:59)
[2022-12-10] MEDS: Tamsulosin HCl 0.4 MG Capsule 0.8 MG PO (19:59)
[2022-12-10 20:00] VITALS: BP 113/72; PULSE 94; RESP 18; TEMP 36.6; O2SAT 95
[2022-12-11 05:00] VITALS: BP 138/84; PULSE 92; RESP 16; TEMP 36.6; O2SAT 95
[2022-12-11] MEDS: Acetaminophen 500 MG Tablet 1000 MG PO ×3 (05:17→20:42)
[2022-12-11] MEDS: Budesonide Respules 0.5 MG/2 ML AMPUL.NEB. INHALATION ×2 (07:15→19:27)
[2022-12-11 07:16] VITALS: PULSE 94; RESP 16; O2SAT 93
[2022-12-11 08:09] VITALS: BP 124/73; PULSE 89; RESP 18; TEMP 36.5; O2SAT 97
[2022-12-11] MEDS: Multivitamins,Therapeutic Tablet 1 TABLET PO (08:15)
[2022-12-11] MEDS: Pantoprazole Sodium 40 MG Tablet PO (08:15)
[2022-12-11] MEDS: Aspirin 81 MG TAB.CHEW PO (08:15)
[2022-12-11] MEDS: Carvedilol 3.125 MG TABLET PO (08:15)
[2022-12-11] MEDS: Losartan Potassium 50 MG Tablet PO (08:15)
[2022-12-11 14:00] VITALS: BP 141/77; PULSE 97; RESP 18; TEMP 36.6; O2SAT 100
--- NOTE | 2022-12-11 15:31 | CASEMGMT ---
Social Work Telephone call to [facility]. Pre-cert continues to be pending. Sydney to call charge nurse if pre-cert is obtained later today. Green sheet placed on chart. PLAN: TCU, pending pre-cert. Gerry DOUGLAS, SILS
[2022-12-11] MEDS: Rivaroxaban 10 MG Tablet PO (16:47)
--- NOTE | 2022-12-11 16:53 | PN.HOSP_ITS ---
Reason for Visit Reason for Visit: Diagnoses Nicotine dependence, unspecified, uncomplicated (12/06/22) Essential (primary) hypertension (12/06/22) Fracture of unspecified part of neck of right femur, initial encounter for c losed fracture (12/06/22) Encounter for preprocedural cardiovascular examination (12/06/22) Presence of other vascular implants and grafts (12/06/22) Subjective Subjective Patient was seen and examined today, we still have not received approval for him to go to TCU for inpatient rehab services. Patient has no complaints of any shortness of breath, chest discomfort, or severe hip pain. Objective Data Objective Data Vital Signs: Vital Signs Temp Pulse Resp BP Pulse Ox O2 Del Method O2 Flow Rate 98 F 97 18 141/77 H 100 Room Air 2 12/11/22 14:00 12/11/22 14:00 12/11/22 14:00 12/11/22 14:00 12/11/22 14:00 12/11/22 14:00 12/08/22 01:36 Oxygen Flow Rate (L/min) 2 Oxygen Delivery Method Room Air Weight: 69.201 kg Body Mass Index (BMI) 23.1 Intake & Output: Intake and Output for Last 24 Hours 12/09/22 12/10/22 12/11/22 23:59 23:59 23:59 Intake Total 1350 / 1350 1120 / 1120 Output Total 1075 / 1075 440 / 440 800 / 800 Balance 275 / 275 680 / 680 -800 / -800 Lab / Micro Data Result Diagrams: 12/10/22 05:35 12/10/22 05:35 Rhythm Strip Rhythm Strip: Sinus Rhythm Physical Exam Narrative alert, oriented x3, no apparent distress and healthy appearing General Appearance: cooperative, well kempt and well developed Orientation / Consciousness: awake, oriented to person, oriented to place and oriented to time HEENT normocephalic, head/scalp atraumatic and moist oral mucous membranes Eyes PERRL, EOMs intact bilaterally and conjunctivae normal Neck supple, no JVD, thyroid normal and no carotid bruits General: trachea midline Resp normal respiratory effort, no retractions, no use of accessory muscles and clear to auscultation bilaterally Auscultation: Negative for rales, rhonchi or wheezes Cardio regular rate, regular rhythm, S1 normal heart sound, S2 normal heart sound, no murmurs, no rub and no gallops GI normal to inspection, nondistended, normoactive bowel sounds, soft to palpation, non-tender and non-distended Extremity no clubbing, cyanosis or edema Skin no rashes or lesions noted General Skin Exam: no breakdown Neuro oriented x3, CN's II-XII intact bilaterally, moves all extremities, no focal motor deficits and no sensory deficits noted Sensorium / Orientation: awake and alert Speech: speech normal Psych affect normal Assessment & Plan Assessment/Plan (1) Displaced fracture of right femoral neck: PLAN: Plan 1. Right femoral neck fracture-postop day #4 right hip cemented hemiarthroplasty-continue PT and OT, patient is awaiting approval for short-term placement in a skilled rehab facility for rehab services. #2 coronary artery disease-stable at this time, patient remains on his home medications #3 chronic obstructive pulmonary disease-brewster stable at this time, continue present medication #4 essential hypertension-continue home medications #5 BPH-patient is on Flomax Total clinical time spent by myself addressing the patient's medical issues, reviewing all of his data, and collaborating with patient's care team: 25 minutes Charges/Coding Visit Charges Inpatient E&M: 72759 [facility] Hosp L1
[2022-12-11 19:25] VITALS: PULSE 98; RESP 16; O2SAT 94
[2022-12-11 20:38] VITALS: BP 126/82; PULSE 100; RESP 16; TEMP 36.8; O2SAT 94
[2022-12-11] MEDS: Atorvastatin Calcium 20 MG Tablet PO (20:41)
[2022-12-11] MEDS: Tamsulosin HCl 0.4 MG Capsule 0.8 MG PO (20:41)
[2022-12-11] MEDS: oxyCODONE 5 MG Tablet PO (20:42)
[2022-12-12 01:36] VITALS: BP 117/77; PULSE 95; RESP 20; TEMP 37.3; O2SAT 94
[2022-12-12] MEDS: Acetaminophen 500 MG Tablet 1000 MG PO ×2 (07:45→13:51)
[2022-12-12 07:48] VITALS: O2SAT 94
--- NOTE | 2022-12-12 09:23 | CASEMGMT ---
Social Work Precert has been obtained for admission to TCU. Physician updated and pt is ready for d/c today. SW met with pt and updated and pt is agreeable to discharge to TCU today. VM left for pt with d/c information. Orders will be faxed to TCU when obtained. Sydney in TCU updated that pt will be admitted today. Disposition: TCU, skilled level of care BARBIE Farmer
[2022-12-12 09:24] VITALS: BP 98/66; PULSE 113; RESP 16; TEMP 36.6; O2SAT 96
[2022-12-12] MEDS: Pantoprazole Sodium 40 MG Tablet PO (09:36)
[2022-12-12] MEDS: Losartan Potassium 50 MG Tablet PO (09:36)
[2022-12-12] MEDS: Multivitamins,Therapeutic Tablet 1 TABLET PO (09:37)
[2022-12-12] MEDS: Aspirin 81 MG TAB.CHEW PO (09:37)
[2022-12-12] MEDS: Carvedilol 3.125 MG TABLET PO (09:37)
--- NOTE | 2022-12-12 10:35 | TREXTCAR_ITS ---
Diet Diet Order/Speech Therapy: 12/07/22 17:58 Diet: Regular - General Is pt able to select menu?: Yes Routine Orders/Code Status Code Status: Full Code Wound(s) RT elbow: Wound Type: Skin Tear Bilateral leg: Wound Type: scab wound right hip: Wound Type: Surgical Incision Therapies Weight Bearing: Weight bearing as tolerated Physical Therapy: Eval and Treat Occupational Therapy: Eval and Treat Problem/Diagnosis (1) Displaced fracture of right femoral neck: Status: Acute Code(s): S72.001A - Fracture of unspecified part of neck of right femur, initial encounter for closed fracture Plan 1. Right femoral neck fracture-postop day #5 right hip cemented h emiarthroplasty-continue PT and OT, patient is awaiting approval for short-term placement in a skilled rehab facility for rehab services. #2 coronary artery disease-stable at this time, patient remains on his home medications #3 chronic obstructive pulmonary disease-brewster stable at this time, continue present medication #4 essential hypertension-continue home medications #5 BPH-patient is on Flomax Total clinical time spent by myself addressing the patient's medical issues, reviewing all of his data, and collaborating with patient's care team: 25 minutes Allergies/Procedures Done in Hospital Allergies No Known Allergies Allergy (Verified 09/26/22 13:04) Procedures: - (Right hemiarthroplasty of the hip-12/07/2022) Type of Care/Length of Stay Estimated LOS: Convalescent Care Less Than 30 days Type of Care Needed: Skilled Rehab Potential: Good Prognosis: Good Additional Orders/Day of Discharge H&P will serve as current which was dated: 12/06/22 Day of Discharge: 12/12/22 Dietary and Speech Recommendations Dietitian Recommendations/Changes: Continue liberal regular diet Consult if changes in pt nutritional status Discharge Plan Admission Admit Date/Time: 12/06/22 18:07 Primary Reason for Your Visit: Right femoral neck fracture Attending Provider: Rip Russell Primary Care Provider: Roberto Wing Consulting Providers: James Hanna; Demetri Grossman; Isaías Gray; Fabiano Hines; Aaron Wei; Scott Hines; Kathryn Slater; Ana Saba; Juan David Velazquez; Seth Cook; [place]; Valdez Tomlinson; Judy Dee Discharge Orders/Prescriptions Prescriptions: New atorvastatin 20 mg Tablet 20 mg PO QHS Qty: 0 0RF albuterol sulfate 2.5 mg /3 mL (0.083 %) Solution For Nebulization 2.5 mg inhalation Q6H PRN (Reason: shortness of breath or wheezing) Qty: 0 0RF melatonin 3 mg Tablet 3 mg PO QHS PRN PRN (Reason: Insomnia) Qty: 0 0RF oxycodone 5 mg Tablet 5 mg PO Q4H PRN PRN (Reason: Pain Score 6-10) 2 Days Qty: 6 0RF acetaminophen 500 mg Tablet 1,000 mg PO Q8 Qty: 0 0RF Xarelto 10 mg Tablet 10 mg PO DINNER Qty: 0 0RF Continued (DME) Handicap Placard See Rx Instructions .ROUTE .MEDSUPPLY Qty: 1 0RF Rx Instructions: As directed, length of time 3 years losartan 50 mg tablet 50 mg PO DAILY omeprazole 40 mg capsule,delayed release(DR/EC) 40 mg PO DAILY carvedilol 3.125 mg tablet 3.125 mg PO DAILY tamsulosin 0.4 mg capsule 0.8 mg PO QHS Discontinued albuterol sulfate [ProAir HFA] 90 mcg/actuation HFA aerosol inhaler 2 puff inhalation Q6H PRN (Reason: shortness of breath or wheezing) Qty: 8.5 3RF budesonide-formoterol [Symbicort] 160-4.5 mcg/actuation HFA aerosol inhaler 2 puff inhalation Q12H Referrals / Follow Up: Roberto Wing MD [Primary Care Provider] - Haresh Vázquez MD [Med Staff - Active Staff] - See Referral Note (In 2 weeks) Disposition Disposition (needs filled in before D/C Order can be placed): Nursing Home Facility
--- NOTE | 2022-12-12 11:03 | PCM.DC.SUM ---
Providers Date of Admission: 12/06/22 Date of Discharge: 12/12/22 Primary Care Physician: Dr. Roberto Wing MD Consultations 12/06/22 18:06 Consult: Orthopedics Routine Consulting Provider: [facility] Reason for Consult: right hip fracture EMERGENT Consult: No Notified: Yes Date Notified: 12/06/22 Time Notified: 16:48 Method of Notification: ED Physician Initiated 12/06/22 20:16 Consult: Cardiology Routine Consulting Provider: Valdez Tomlinson Reason for Consult: Preoperative cardiac evaluation EMERGENT Consult: No Notified: Yes Date Notified: 12/06/22 Time Notified: 20:16 Method of Notification: phone Comments:: will not be able to be seen until after 12pm today Reason For Visit: RIGHT HIP FRACTURE Diagnosis Discharge Diagnosis (1) Displaced fracture of right femoral neck: Status: Acute Code(s): S72.001A - Fracture of unspecified part of neck of right femur, initial encounter for closed fracture Plan 1. Right femoral neck fracture-postop day #5 right hip cemented hemiarthroplasty-continue PT and OT, patient is awaiting approval for short-term placement in a skilled rehab facility for rehab services. #2 coronary artery disease-stable at this time, patient remains on his home medications #3 chronic obstructive pulmonary disease-brewster stable at this time, continue present medication #4 essential hypertension-continue home medications #5 BPH-patient is on Flomax Total clinical time spent by myself addressing the patient's medical issues, reviewing all of his data, and collaborating with patient's care team: 25 minutes Medications at Discharge Home Medications Handicap Placard #1 ea 12/29/21 carvedilol 3.125 mg tablet 3.125 mg PO DAILY HEART 12/06/22 losartan 50 mg tablet 50 mg PO DAILY BLOOD PRRESSURE 12/06/22 omeprazole 40 mg capsule,delayed release 40 mg PO DAILY ACID REFLUX 12/06/22 tamsulosin 0.4 mg capsule 0.8 mg PO QHS PROSTATE 12/06/22 acetaminophen 500 mg tablet 1,000 mg (2 x 500 mg) PO Q8 Pain #0 tabs 12/12/22 albuterol sulfate 2.5 mg/3 mL (0.083 %) solution for nebulization 2.5 mg (3 mL) inhalation Q6H PRN shortness of breath or wheezing #0 mL 12/12/22 atorvastatin 20 mg tablet 20 mg PO QHS Cholesterol #0 tabs 12/12/22 melatonin 3 mg tablet 3 mg PO QHS PRN PRN Insomnia #0 tabs 12/12/22 oxycodone 5 mg tablet 5 mg PO Q4H PRN PRN Pain Score 6-10 2 days #6 tabs 12/12/22 rivaroxaban 10 mg tablet (Xarelto) 10 mg PO DINNER anticoagulant #0 tabs 12/12/22 Hospital Course Operations - (Right hip cemented hemiarthroplasty-12/07/2022) Procedures None Summary of Care Provided Minutes Spent on Discharge: 32 Hospital Course: 72-year-old white male was seen in the emergency room at [facility] after suffering mechanical fall at home and having pain in his right hip area with inability to bear weight without pain. Work-up in the emergency room revealed a femoral neck fracture of the right hip, patient was admitted to [place] [address] and seen in consultation by orthopedic surgery. Patient was medically stable to undergo a right hip cemented hemiarthroplasty, he went through this procedure and had no major complications, he was seen postop by PT and OT, it was recommended that he go to a alf facility for short-term rehab services and he agreed. Approval was obtained for the [facility]. On 12/12/2022, patient was seen and examined: On examination he appeared in good health and spirits. Vital signs as documented. Skin warm and dry and without overt rashes. Neck without JVD, neck was supple, trachea midline, thyroid was normal. Lungs clear bilaterally, normal air movement was noted. Heart exam notable for regular rhythm, normal sounds and absence of murmurs, rubs or gallops. Abdomen unremarkable and without evidence of organomegaly, masses, or abdominal aortic enlargement. Bowel sounds are present, abdomen is not distended. Extremities nonedematous, no cyanosis was noted, no clubbing was noted. Neuro: Cranial nerves II through XII are grossly intact, no focal motor deficits were noted, sensation to light touch and pinprick intact, motor exam 5/5 throughout. Psych: Patient is alert and oriented x3, he does not appear anxious or depressed, he does not appear agitated. On 12/12/2022, patient was transferred to TCU for short-term inpatient rehab services. Weight / BMI Weight Weight: 69.201 kg Body Mass Index (BMI) 23.1 ABG / Lab / Microbiology Data 12/10/22 05:35 12/10/22 05:35 Meaningful Use Info Meaningful Use Diagnoses (Choose all that apply): None applicable Discharge Plan Admission Admit Date/Time: 12/06/22 18:07 Primary Reason for Your Visit: Right femoral neck fracture Attending Provider: Rip Russell Primary Care Provider: Roberto Wing Consulting Providers: James Hanna; Demetri Grossman; Isaías Gray; Fabiano Hines; Aaron Wei; Scott Hines; Kathryn Slater; Ana Saba; Juan David Velazquez; Seth Cook; [place]; Valdez Tomlinson; Judy Dee Discharge Orders/Prescriptions Prescriptions: New atorvastatin 20 mg Tablet 20 mg PO QHS Qty: 0 0RF albuterol sulfate 2.5 mg /3 mL (0.083 %) Solution For Nebulization 2.5 mg inhalation Q6H PRN (Reason: shortness of breath or wheezing) Qty: 0 0RF melatonin 3 mg Tablet 3 mg PO QHS PRN PRN (Reason: Insomnia) Qty: 0 0RF oxycodone 5 mg Tablet 5 mg PO Q4H PRN PRN (Reason: Pain Score 6-10) 2 Days Qty: 6 0RF acetaminophen 500 mg Tablet 1,000 mg PO Q8 Qty: 0 0RF Xarelto 10 mg Tablet 10 mg PO DINNER Qty: 0 0RF Continued (DME) Handicap Placard See Rx Instructions .ROUTE .MEDSUPPLY Qty: 1 0RF Rx Instructions: As directed, length of time 3 years losartan 50 mg tablet 50 mg PO DAILY omeprazole 40 mg capsule,delayed release(DR/EC) 40 mg PO DAILY carvedilol 3.125 mg tablet 3.125 mg PO DAILY tamsulosin 0.4 mg capsule 0.8 mg PO QHS Discontinued albuterol sulfate [ProAir HFA] 90 mcg/actuation HFA aerosol inhaler 2 puff inhalation Q6H PRN (Reason: shortness of breath or wheezing) Qty: 8.5 3RF budesonide-formoterol [Symbicort] 160-4.5 mcg/actuation HFA aerosol inhaler 2 puff inhalation Q12H Referrals / Follow Up: Roberto Wing MD [Primary Care Provider] - Haresh Vázquez MD [Med Staff - Active Staff] - See Referral Note (In 2 weeks) Disposition Disposition (needs filled in before D/C Order can be placed): Nursing Home Facility Charges/Coding Visit Charges Inpatient E&M: 54810 Disch Hosp >30min
--- NOTE | 2022-12-12 11:23 | PHA.DC.MR.R ---
Pharmacy [place] Med Reconciliation Pharmacy Service has performed discharge medication reconciliation for this patient. The patient's discharge medication list was reviewed for discrepancies and discrepancies were resolved. Medications at Discharge Home Medications Handicap Placard #1 ea 12/29/21 carvedilol 3.125 mg tablet 3.125 mg PO DAILY HEART 12/06/22 losartan 50 mg tablet 50 mg PO DAILY BLOOD PRRESSURE 12/06/22 omeprazole 40 mg capsule,delayed release 40 mg PO DAILY ACID REFLUX 12/06/22 tamsulosin 0.4 mg capsule 0.8 mg PO QHS PROSTATE 12/06/22 acetaminophen 500 mg tablet 1,000 mg (2 x 500 mg) PO Q8 #0 tabs 12/12/22 albuterol sulfate 2.5 mg/3 mL (0.083 %) solution for nebulization 2.5 mg (3 mL) inhalation Q6H PRN shortness of breath or wheezing #0 mL 12/12/22 atorvastatin 20 mg tablet 20 mg PO QHS #0 tabs 12/12/22 melatonin 3 mg tablet 3 mg PO QHS PRN PRN Insomnia #0 tabs 12/12/22 oxycodone 5 mg tablet 5 mg PO Q4H PRN PRN Pain Score 6-10 2 days #6 tabs 12/12/22 rivaroxaban 10 mg tablet (Xarelto) 10 mg PO DINNER #0 tabs 12/12/22
[2022-12-12 13:46] VITALS: BP 117/77; PULSE 88; RESP 16; TEMP 36.6; O2SAT 98
== END 2022-12-12 14:12 | DRG 522 ==
LOC: ED 16:58 → MS3 18:16
PROVIDERS: Anesthesiology; Family Medicine; Orthopaedic Surgery Sports Medicine; Admitting Provider Internal Medicine; Emergency Provider Student in an Organized Health Care Education/Training Program; PCP Internal Medicine; Visit Provider Internal Medicine
PROC: 0SRR0J9 Replacement of Right Hip Joint, Femoral Surface with Synthetic Substitute, Cemented, Open Approach (ICD-10-PCS; CPT 27125; principal; 2022-12-07 13:10)
DX: S72.011A Unspecified intracapsular fracture of right femur, initial encounter for closed fracture (principal); E87.1 Hypo-osmolality and hyponatremia; I73.9 Peripheral vascular disease, unspecified; J44.9 Chronic obstructive pulmonary disease, unspecified; I71.40 Abdominal aortic aneurysm, without rupture, unspecified; F17.210 Nicotine dependence, cigarettes, uncomplicated; I10 Essential (primary) hypertension; I25.5 Ischemic cardiomyopathy; I25.10 Atherosclerotic heart disease of native coronary artery without angina pectoris; S50.311A Abrasion of right elbow, initial encounter; F10.10 Alcohol abuse, uncomplicated; E78.5 Hyperlipidemia, unspecified; K21.9 Gastro-esophageal reflux disease without esophagitis; W01.0XXA Fall on same level from slipping, tripping and stumbling without subsequent striking against object, initial encounter; Z95.828 Presence of other vascular implants and grafts; Z79.899 Other long term (current) drug therapy; N40.0 Benign prostatic hyperplasia without lower urinary tract symptoms; Y92.009 Unspecified place in unspecified non-institutional (private) residence as the place of occurrence of the external cause
CPT/HCPCS: 36415; 71045; 72170; 73502; 80053; 83735; 84100; 85025; 85610; 85730; 86850; 86900; 86901; 88305; 88307; 88311; 93005; 94640; 97110; 97116; 97162; 97166; 97530; 97535; 99283; C1776; J7030; J7120; A4216; J2405

== ENCOUNTER 2022-12-12 14:30 | Inpatient (IN) | payer MEDICARE, SELFPAY ==
[2022-12-12 14:49] VITALS: BP 131/70; PULSE 91; RESP 20; TEMP 36.3; O2SAT 97
[2022-12-12 14:53] VITALS: BMI 23.5
[2022-12-12 15:22] VITALS: PULSE 104
[2022-12-12] MEDS: oxyCODONE 5 MG Tablet PO (15:39)
[2022-12-12] MEDS: CLARIFY ORDER NOTE (17:47)
[2022-12-12] MEDS: Rivaroxaban 10 MG Tablet PO (17:48)
[2022-12-12] MEDS: Tamsulosin HCl 0.4 MG Capsule 0.8 MG PO (20:10)
[2022-12-12] MEDS: Acetaminophen 500 MG Tablet 1000 MG PO (20:10)
[2022-12-12] MEDS: Atorvastatin Calcium 20 MG Tablet PO (20:11)
--- NOTE | 2022-12-12 20:37 | HP.PCM_ITS ---
HPI - General General Date of Admission: 12/12/22 Date of Service: 12/12/22 Chief Complaint: Here for rehabilitation. HPI Narrative 12/06/2022 CHITO CORDON, is a 82 Male who presents to [facility] Emergency Department with fall. Chronic right hip pain, fell, landed on right hip. Unable to walk since fall, laying on couch. No loss of consciousness, no head injury. X-ray shows right hip fracture. 12/06/2022 Admit to Hospital. Prepare for surgery, consult Cardiology for clearance. 12/07/2022 Right hip pain, sharp with movement. 12/07/2022 Cardiology states acceptable risk for surgery. 12/07/2022 Dr. Vázquez performed right hip cemented hemiarthroplasty. 12/08/2022 Pain difficult to control, oxygen weaned to room air. PT/OT for SNF. Sodium 133, chronic hyponatremia. Alcohol abuse. 12/09/2022 PT/OT SNF. 12/10/2022 Await Pre-CERT for TCU. 12/12/2022 Admit to TCU with debility, here for rehabilitation, strengthening, prior to discharge home with . [facility] Medical History (Updated 12/12/22 @ 20:[address] Brando Wynn MD) Abdominal aortic aneurysm (AAA) Alcohol abuse Atherosclerotic heart disease of [place] coronary artery without angina pectoris Back problem Bone fracture BPH (benign prostatic hyperplasia) Cataract Cellulitis of scrotum Chronic back pain Chronic cough COPD (chronic obstructive pulmonary disease) COVID-19 vaccine series completed Easy bruising Essential (primary) hypertension Fecal urgency Gastric ulcer GERD (gastroesophageal reflux disease) History of echocardiogram History of RSV infection History of stress test History of ulceration Hoarseness Iliac artery aneurysm, right Ischemic cardiomyopathy Macular degeneration Nicotine dependence Right inguinal hernia Scrotal abscess Seasonal allergies Smoker Spinal stenosis of lumbar region with neurogenic claudication Syncope Vision problem Wears dentures Home Medications Handicap Placard #1 ea 12/29/21 [Rx Last Taken Unknown] carvedilol 3.125 mg tablet 3.125 mg PO DAILY HEART 12/06/22 [History Last Taken 12/12/22 09:35] losartan 50 mg tablet 50 mg PO DAILY BLOOD PRRESSURE 12/06/22 [History Last Taken 12/12/22 09:35] omeprazole 40 mg capsule,delayed release 40 mg PO DAILY ACID REFLUX 12/06/22 [History Last Taken 12/12/22 09:35] tamsulosin 0.4 mg capsule 0.8 mg PO QHS PROSTATE 12/06/22 [History Last Taken 12/05/22] acetaminophen 500 mg tablet 1,000 mg (2 x 500 mg) PO Q8 Pain #0 tabs 12/12/22 [Rx Last Taken Unknown] albuterol sulfate 2.5 mg/3 mL (0.083 %) solution for nebulization 2.5 mg (3 mL) inhalation Q6H PRN shortness of breath or wheezing #0 mL 12/12/22 [Rx Last Taken Unknown] atorvastatin 20 mg tablet 20 mg PO QHS Cholesterol #0 tabs 12/12/22 [Rx Last Taken Unknown] melatonin 3 mg tablet 3 mg PO QHS PRN PRN Insomnia #0 tabs 12/12/22 [Rx Last Taken Unknown] oxycodone 5 mg tablet 5 mg PO Q4H PRN PRN Pain Score 6-10 2 days #6 tabs 12/12/22 [Rx Last Taken Unknown] rivaroxaban 10 mg tablet (Xarelto) 10 mg PO DINNER anticoagulant #0 tabs 12/12/22 [Rx Last Taken Unknown] Allergy/AdvReac Type Severity Reaction Status Date / Time No Known Allergies Allergy Verified 09/26/22 13:04 Family History Grandfather Cancer Father Brain aneurysm Daughter Hypertension Surgical History (Updated 12/12/22 @ 20:[address] Brando Wynn MD) History of back surgery History of colonoscopy History of endovascular stent graft for abdominal aortic aneurysm (AAA) (12/11/13) History of esophagogastroduodenoscopy (EGD) History of left heart catheterization (11/11/13) History of right hip hemiarthroplasty History of right inguinal hernia repair Rupture of biceps tendon Social History (Updated 12/12/22 @ 20:[address] Brando Wynn MD) household members: spouse Smoking Status: Current every day smoker tobacco type: cigarettes Tobacco: How many years used: 62 alcohol intake: current alcohol intake frequency: 3 or more drinks per day Alcohol type: beer substance use type: does not use what type of physical activity do you participate in: none ROS Constitutional Constitutional: Denies chills, fever(s) or weight gain ENT HEENT: Denies headache(s), nasal congestion or nasal discharge Cardiovascular Cardiovascular: Denies chest pain or palpitations Respiratory/Chest Respiratory/Chest: Denies cough, excessive phlegm production or shortness of breath with exertion Gastrointestinal Gastrointestinal: Denies abdominal pain, nausea or vomiting Genitourinary Genitourinary: Denies dysuria Musculoskeletal Musculoskeletal: Denies joint pain or joint swelling Integumentary Integumentary: Denies rash or wounds Neurologic Neurologic: Denies focal weakness, numbness or tingling Psychiatric Psychiatric: Denies anxiety, auditory hallucinations, depression, homicidal ideation or suicidal ideation Vital Signs Vital Signs Vital Signs: 12/12/22 14:49 12/12/22 15:22 Temperature 97.3 F L Temperature Source Temporal Pulse Rate 91 104 H Pulse Rhythm Regular Pulse Strength Normal (2+) Respiratory Rate 20 H Respiratory Effort Normal Non-Labored Respiratory Depth Normal Respiratory Pattern Normal Blood Pressure 131/70 H Blood Pressure Mean 90 Blood Pressure Source Monitor Blood Pressure Position Semi-Fowlers Blood Pressure Location Right Arm Pulse Ox 97 Oxygen Delivery Method Room Air Room Air Weight Weight: 68.152 kg Body Mass Index (BMI) 23.5 Physical Exam Const alert General Appearance: cooperative HEENT normocephalic Eyes PERRL and EOMs intact bilaterally Neck supple, no JVD and no carotid bruits Resp normal respiratory effort, normal air movement and clear to auscultation b ilaterally Cardio regular rate and regular rhythm GI normal to inspection, nondistended, normoactive bowel sounds, non-tender and non-distended Extremity normal capillary refill General Extremity: Negative for edema Skin no rashes or lesions noted General Skin Exam: no breakdown Psych affect normal Appearance: appropriate Assessment & Plan Assessment/Plan (1) Debility: (2) Closed right hip fracture: (3) COPD (chronic obstructive pulmonary disease): (4) Hypertension: (5) GERD (gastroesophageal reflux disease): (6) BPH (benign prostatic hyperplasia): (7) Tobacco abuse: (8) Alcohol abuse: (9) Coronary artery disease: PLAN: Plan 82 year old male with below past medical history hospitalized for right hip fracture, underwent right hip cemented hemiarthroplasty 12/07/[address] Haresh Vázquez, admitted to TCU with debility, here for rehabilitation, strengthening, prior to discharge home with . * Debility - PT/OT. * Pain - Tylenol 1000mg q8, Oxycodone 5mg q4h prn pain (6-10). * Bowel - senna/colace 2 tablets bid, Magnesium citrate 300ml po x 1 prn. * Adult immunization - Administer pneumonia vaccine, covid19 vaccine, flu vaccine as appropriate. * DVT prophylaxis - Xarelto 10mg daily thru 01/11/2023. * COPD - Albuterol 2.5mg nebulized Q6h prn. * Hyperlipidemia - Atorvastatin 20mg qhs. * Coronary artery disease - Coreg 3.125mg bid, Losartan 50mg daily. * Nutrition - Ensure Plus High 120ml po tidcm. * Insomnia - Melatonin 3mg qhs prn. * GERD - Pantoprazole 40mg daily. * BPH - Tamsulosin 0.4mg daily.
--- NOTE | 2022-12-12 21:13 | PHA.DCNOTE_ITS ---
Pharmacy [facility] Pharmacy Service has performed discharge medication reconciliation and counseling for this patient. The patient's discharge medication list was reviewed for discrepancies and discrepancies were resolved. The patient was counseled on the following discharge medications and changes in medications for homegoing were reviewed. The Reason for Use, instructions for use, and potential side effects were reviewed for all new medications. The patient's questions regarding all of their medications were answered. The patient was able to verbally demonstrate an understanding of their discharge medications. The patient demonstrated some understanding but would benefit from further education and reinforcement. The patient was not able to adequately demonstrate understanding. [facility] Home Medications and Allergies Home Medications Medication Instructions Recorded Confirmed Type carvedilol 3.125 mg tablet 3.125 mg PO DAILY HEART 12/06/22 12/12/22 History losartan 50 mg tablet 50 mg PO DAILY BLOOD PRRESSURE 12/06/22 12/12/22 History omeprazole 40 mg capsule,delayed 40 mg PO DAILY ACID REFLUX 12/06/22 12/12/22 History release tamsulosin 0.4 mg capsule 0.8 mg PO QHS PROSTATE 12/06/22 12/12/22 History Allergies Allergy/AdvReac Type Severity Reaction Status Date / Time No Known Allergies Allergy Verified 09/26/22 13:04
[2022-12-13] MEDS: oxyCODONE 5 MG Tablet PO ×3 (03:36→21:05)
[2022-12-13 05:15] VITALS: BP 122/79; PULSE 102
[2022-12-13] MEDS: Acetaminophen 500 MG Tablet 1000 MG PO ×3 (05:19→21:06)
[2022-12-13] MEDS: Pantoprazole Sodium 40 MG Tablet PO (05:19)
[2022-12-13] MEDS: Losartan Potassium 50 MG Tablet PO (05:19)
[2022-12-13] MEDS: Carvedilol 3.125 MG TABLET PO ×2 (05:20→17:17)
[2022-12-13] MEDS: Senna/Docusate Sodium 1 Tablet 2 TABLET PO (05:22)
[2022-12-13] MEDS: Ensure Plus High Protein 120 ML LIQUID PO ×3 (07:55→17:17)
[2022-12-13] MEDS: Tuberculin,Purif.prot.deriv. 50 TU/ML Vial 0.1 ML ID (09:59)
[2022-12-13 10:03] VITALS: RESP 16; O2SAT 93
--- NOTE | 2022-12-13 12:09 | CASEMGMT ---
Social Work Met with patient to complete initial assessment. Introduced self and role. Discussed code status and MOLST form. Pt confirms full code. MOLST palced in Dr folder. Educated to [facility] insurance with NRD 12/14 and continued stay is not guaranteed with each review. Pt's goal is to return home with at [facility]. Pt will need to complete steps to safely discharge. SW to continue to follow for DC planning. Vicenta Yao, KENO WRITER/RUNNER ENGAGEMENT LEAD
[2022-12-13 13:56] VITALS: BP 117/64; PULSE 95; RESP 20; TEMP 36.4; O2SAT 95
--- NOTE | 2022-12-13 14:49 | CHAPLAIN ---
Type of Pastoral Visit _x__ Initial Visit ___ Follow-up Visit ___ On-call Visit ___ General Patient Visit ___ Spiritual Assessment ___ Family Conference ___ Bereavement ___ Rapid Response ___ Code Blue ___ Other (describe below) Pastoral Care Referral From _x__ Patient ___ Family ___ Nurse ___ Physician ___ Talent Acquisition Partner ___ Pharmacists ___ Other (describe below) Sacrament/Intervention ___ Active listening ___ Anointing ___ Jainism ___ Bereavement ___ Communion ___ Philomena exploration ___ ___ Life review ___ Prayer ___ Reconciliation ___ Sacrament of Sick _x__ Supportive presence ___ Wedding ___ Other (describe below) Pastoral Comments came to patient while GAS CHECK PAD MAKER was finishing his vitals; introduced self and role to patient with offer of presence and support; pt states that My should be here any minute adding I am fine; pt did not seek further support; offer ongoing as desired by patient
[2022-12-13] MEDS: Rivaroxaban 10 MG Tablet PO (17:17)
--- NOTE | 2022-12-13 17:20 | NURSING ---
mepilex removed from RT hip, ABD applied d/t scant amt of daphne. pt resting in bed, call light in reach.
[2022-12-13] MEDS: Atorvastatin Calcium 20 MG Tablet PO (21:06)
[2022-12-13] MEDS: Tamsulosin HCl 0.4 MG Capsule 0.8 MG PO (21:07)
[2022-12-14] MEDS: Losartan Potassium 50 MG Tablet PO (05:19)
[2022-12-14] MEDS: Acetaminophen 500 MG Tablet 1000 MG PO ×3 (05:19→22:33)
[2022-12-14] MEDS: Pantoprazole Sodium 40 MG Tablet PO (05:20)
[2022-12-14] MEDS: Senna/Docusate Sodium 1 Tablet 2 TABLET PO (05:20)
[2022-12-14] MEDS: Carvedilol 3.125 MG TABLET PO (05:21)
[2022-12-14 05:35] VITALS: BP 145/79; PULSE 89; RESP 16
[2022-12-14 07:43] LABS: Absolute Neutrophil Count 6.5 X10^3/uL (2.0-7.7); Basophil# 0.05 X10^3/uL; Basophil% 0.5 % (0-1); Eosinophil# 0.26 X10^3/uL; Eosinophils% 2.8 % (0-5); Hematocrit 27.1 % (40-54); Mean Corp Hgb Conc 33.2 g/dL (32-36); Mean Corpuscular Hgb 28.2 pg (27.0-32.0); Mean Platelet Vol. 8.4 fl (6.2-12.0); Monocyte# 1.03 X10^3/uL; Monocyte% 11.1 % (0-10); NRBC Flagged by Analyzer 0 % (0-5); Neutrophil # 6.47 X10^3/uL (2.7-7.7); Neutrophil % 69.5 % (47-70); Platelet Count 435 K/mm3 (150-450); RBC Distribution Width CV 16.1 % (11.6-14.6); RBC Distribution Width SD 49.6 fl (35.1-43.9); Red Blood Count 3.19 M/mm3 (4.6-6.2); White Blood Count 9.3 K/mm3 (4.4-11.0)
[2022-12-14 08:10] LABS: Anion Gap 7 (5-15); BUN 15 mg/dL (7-18); Calcium,Total 8.3 mg/dL (8.5-10.1); Chloride 108 mmol/L (98-107); Creatinine, Serum 0.62 mg/dL (0.70-1.30); EST Glomerular Filtration Rate 131 mL/min (>60); Est Glom Filt Rate - Afr Amer 158 mL/min (>60); Estimated Creatinine Clearance 53.25 ml/min; Glucose 113 mg/dL (74-106); Potassium 3.6 mmol/L (3.5-5.1); Sodium Level 140 mmol/L (136-145)
[2022-12-14 08:44] VITALS: BP 90/59; PULSE 77; RESP 17; TEMP 36.4; O2SAT 96
[2022-12-14] MEDS: Ensure Plus High Protein 120 ML LIQUID PO ×3 (08:49→17:48)
--- NOTE | 2022-12-14 09:10 | NURSING ---
Business Continuity Director Note; Activity Asset: Maura Julian is independent in his choice of daily activities. Eliel is legally blind and stated he used to read the news paper and watch tv now he just listens to the TV and his favorite channel is [place]. He is fine with just resting and watching tv when not in therapy. His family will bring him things he may need or want. Staff will check in to make sure everything is going well and see if he needs anything and respect his right to say NO.
[2022-12-14 10:00] VITALS: PULSE 98; RESP 14; O2SAT 98
[2022-12-14 11:30] VITALS: BP 93/63
--- NOTE | 2022-12-14 12:46 | NS ---
Res does not have any food dislikes. Provided written copy of daily specials/first choice menu w/ instructions on how to order. MST score =4 - risk of malnutrition r/t wt loss and decreased appetite.
[2022-12-14] MEDS: oxyCODONE 5 MG Tablet PO ×3 (13:33→22:33)
[2022-12-14 17:42] VITALS: BP 126/72; PULSE 84
[2022-12-14] MEDS: Rivaroxaban 10 MG Tablet PO (17:47)
--- NOTE | 2022-12-14 18:13 | NURSING ---
Patient states he takes Coreg 3.125mg DAILY at home. Updated Dr. Case, recommends keeping current medication order. No changes made.
[2022-12-14] MEDS: Tamsulosin HCl 0.4 MG Capsule 0.8 MG PO (22:33)
[2022-12-14] MEDS: Atorvastatin Calcium 20 MG Tablet PO (22:34)
[2022-12-15 05:30] VITALS: BP 145/79; PULSE 87; RESP 14
[2022-12-15] MEDS: Losartan Potassium 50 MG Tablet PO (05:41)
[2022-12-15] MEDS: Carvedilol 3.125 MG TABLET PO ×2 (05:41→17:19)
[2022-12-15] MEDS: Pantoprazole Sodium 40 MG Tablet PO (05:41)
[2022-12-15] MEDS: Senna/Docusate Sodium 1 Tablet 2 TABLET PO (05:41)
[2022-12-15] MEDS: Acetaminophen 500 MG Tablet 1000 MG PO ×3 (05:42→20:32)
[2022-12-15 10:00] VITALS: PULSE 68; O2SAT 93
[2022-12-15] MEDS: Ensure Plus High Protein 120 ML LIQUID PO ×2 (12:43→17:19)
[2022-12-15] MEDS: oxyCODONE 5 MG Tablet PO ×2 (12:43→17:23)
[2022-12-15 15:32] VITALS: BP 126/68; PULSE 85; RESP 14; TEMP 36.2; O2SAT 96
[2022-12-15] MEDS: Rivaroxaban 10 MG Tablet PO (17:19)
[2022-12-15 17:26] VITALS: BP 136/72; PULSE 82
[2022-12-15] MEDS: Tamsulosin HCl 0.4 MG Capsule 0.8 MG PO (20:32)
[2022-12-15] MEDS: Atorvastatin Calcium 20 MG Tablet PO (20:33)
[2022-12-16] MEDS: oxyCODONE 5 MG Tablet PO ×2 (01:05→20:13)
[2022-12-16] MEDS: Pantoprazole Sodium 40 MG Tablet PO (05:12)
[2022-12-16] MEDS: Losartan Potassium 50 MG Tablet PO (05:13)
[2022-12-16] MEDS: Acetaminophen 500 MG Tablet 1000 MG PO ×3 (05:13→20:14)
[2022-12-16 05:57] VITALS: BP 145/71; PULSE 81
[2022-12-16] MEDS: Carvedilol 3.125 MG TABLET PO ×2 (08:10→17:03)
[2022-12-16] MEDS: Ensure Plus High Protein 120 ML LIQUID PO ×2 (08:10→13:30)
[2022-12-16 08:12] VITALS: BP 127/94; PULSE 101
[2022-12-16 14:34] VITALS: BP 113/61; PULSE 94; RESP 16; TEMP 36.3; O2SAT 95
[2022-12-16] MEDS: Rivaroxaban 10 MG Tablet PO (17:03)
[2022-12-16 17:07] VITALS: BP 144/74; PULSE 80
[2022-12-16] MEDS: Tamsulosin HCl 0.4 MG Capsule 0.8 MG PO (20:14)
[2022-12-16] MEDS: Atorvastatin Calcium 20 MG Tablet PO (20:15)
[2022-12-17] MEDS: oxyCODONE 5 MG Tablet PO ×3 (04:32→17:11)
[2022-12-17] MEDS: Acetaminophen 500 MG Tablet 1000 MG PO ×3 (04:34→22:26)
[2022-12-17] MEDS: Pantoprazole Sodium 40 MG Tablet PO (04:35)
[2022-12-17] MEDS: Losartan Potassium 50 MG Tablet PO (04:35)
[2022-12-17 04:39] VITALS: BP 147/81; PULSE 81
[2022-12-17 08:45] VITALS: BP 101/55; PULSE 106; RESP 16; TEMP 36.3; O2SAT 97
[2022-12-17] MEDS: Carvedilol 3.125 MG TABLET PO ×2 (08:49→17:11)
[2022-12-17] MEDS: Ensure Plus High Protein 120 ML LIQUID PO ×2 (08:49→12:16)
--- NOTE | 2022-12-17 14:07 | CASEMGMT ---
Social Work Continued stay denied by insurance with last cover day to be 12/20/22 and discharge or patient financial responsibility to begin on 12/21/2022. This secondary social studies teacher met with patient and patient spouse in room. This secondary social studies teacher communicating above information to patient and patient spouse. Patient and patient spouse agreeable to discharge on 12/21/2022. Patient with plan of care meeting on 12/19/2022 and plans to discuss discharge plan with team at meeting. Notice of Medicare non-coverage signed by patient spouse. Proposed discharge date: 12/21/2022 PLAN: Home with spouse. Gerry DOUGLAS, LUIS
--- NOTE | 2022-12-17 15:00 | CASEMGMT ---
Social Work Brief interview for mental status (BIMS) and resident mood assessment (PHQ-9) completed on this day. BIMS score . PHQ-9 score 09/10. Gerry DOUGLAS, SILS
[2022-12-17 17:09] VITALS: BP 125/68; PULSE 74
[2022-12-17] MEDS: Rivaroxaban 10 MG Tablet PO (17:11)
[2022-12-17] MEDS: Atorvastatin Calcium 20 MG Tablet PO (22:27)
[2022-12-17] MEDS: Tamsulosin HCl 0.4 MG Capsule 0.8 MG PO (22:27)
[2022-12-18] MEDS: oxyCODONE 5 MG Tablet PO ×4 (02:43→21:30)
[2022-12-18 06:00] VITALS: BP 136/71; PULSE 85
[2022-12-18] MEDS: Acetaminophen 500 MG Tablet 1000 MG PO ×3 (06:12→21:32)
[2022-12-18] MEDS: Losartan Potassium 50 MG Tablet PO (06:12)
[2022-12-18] MEDS: Pantoprazole Sodium 40 MG Tablet PO (06:13)
[2022-12-18] MEDS: Ensure Plus High Protein 120 ML LIQUID PO ×3 (08:28→16:34)
[2022-12-18 08:30] VITALS: BP 97/55; PULSE 96
[2022-12-18 15:05] VITALS: BMI 23.1
[2022-12-18 16:00] VITALS: BP 106/60; PULSE 95; RESP 18; TEMP 36.6; O2SAT 95
[2022-12-18] MEDS: Rivaroxaban 10 MG Tablet PO (16:34)
[2022-12-18] MEDS: Carvedilol 3.125 MG TABLET PO (16:35)
[2022-12-18 20:20] VITALS: PULSE 82; RESP 16
[2022-12-18] MEDS: Tamsulosin HCl 0.4 MG Capsule 0.8 MG PO (21:31)
[2022-12-18] MEDS: Atorvastatin Calcium 20 MG Tablet PO (21:32)
[2022-12-19] MEDS: Acetaminophen 500 MG Tablet 1000 MG PO ×3 (05:33→21:40)
[2022-12-19] MEDS: Pantoprazole Sodium 40 MG Tablet PO (05:33)
[2022-12-19] MEDS: Losartan Potassium 50 MG Tablet PO (05:33)
--- NOTE | 2022-12-19 08:06 | DS.PCM_ITS ---
Providers Date of Admission: 12/12/22 Primary Care Physician: Dr. Roberto Wing MD Reason For Visit: RIGHT HIP FRACTURE Diagnosis Discharge Diagnosis (1) Debility: Status: Acute Code(s): R53.81 - Other malaise (2) Closed right hip fracture: Status: Acute Code(s): S72.001A - Fracture of unspecified part of neck of right femur, initial encounter for closed fracture (3) COPD (chronic obstructive pulmonary disease): Status: Chronic Code(s): J44.9 - Chronic obstructive pulmonary disease, unspecified (4) Hypertension: Status: Chronic Code(s): I10 - Essential (primary) hypertension (5) GERD (gastroesophageal reflux disease): Status: Chronic Code(s): K21.9 - Gastro-esophageal reflux disease without esophagitis (6) BPH (benign prostatic hyperplasia): Status: Chronic Code(s): N40.0 - Benign prostatic hyperplasia without lower urinary tract symptoms (7) Tobacco abuse: Status: Acute Code(s): Z72.0 - Tobacco use (8) Alcohol abuse: Status: Acute Code(s): F10.10 - Alcohol abuse, uncomplicated (9) Coronary artery disease: Status: Acute Code(s): I25.10 - Atherosclerotic heart disease of [place] coronary artery without angina pectoris Plan 82 year old male with below past medical history hospitalized for right hip fracture, underwent right hip cemented hemiarthroplasty 12/07/[address] Haresh Vázquez, admitted to TCU with debility, here for rehabilitation, strengthening, prior to discharge home with . * Debility - PT/OT. * Pain - Tylenol 1000mg q8, Oxycodone 5mg q4h prn pain (6-10). * Bowel - senna/colace 2 tablets bid, Magnesium citrate 300ml po x 1 prn. * Adult immunization - Administer pneumonia vaccine, covid19 vaccine, flu vac cine as appropriate. * DVT prophylaxis - Xarelto 10mg daily thru 01/11/2023. * COPD - Albuterol 2.5mg nebulized Q6h prn. * Hyperlipidemia - Atorvastatin 20mg qhs. * Coronary artery disease - Coreg 3.125mg bid, Losartan 50mg daily. * Nutrition - Ensure Plus High 120ml po tidcm. * Insomnia - Melatonin 3mg qhs prn. * GERD - Pantoprazole 40mg daily. * BPH - Tamsulosin 0.4mg daily. Medications at Discharge Home Medications Handicap Placard #1 ea 12/29/21 carvedilol 3.125 mg tablet 3.125 mg PO DAILY HEART 12/06/22 losartan 50 mg tablet 50 mg PO DAILY BLOOD PRRESSURE 12/06/22 omeprazole 40 mg capsule,delayed release 40 mg PO DAILY ACID REFLUX 12/06/22 tamsulosin 0.4 mg capsule 0.8 mg PO QHS PROSTATE 12/06/22 acetaminophen 500 mg tablet 1,000 mg (2 x 500 mg) PO Q8 Pain #0 tabs 12/12/22 albuterol sulfate 2.5 mg/3 mL (0.083 %) solution for nebulization 2.5 mg (3 mL) inhalation Q6H PRN shortness of breath or wheezing #0 mL 12/12/22 atorvastatin 20 mg tablet 20 mg PO QHS Cholesterol #0 tabs 12/12/22 melatonin 3 mg tablet 3 mg PO QHS PRN PRN Insomnia #0 tabs 12/12/22 oxycodone 5 mg tablet 5 mg PO Q4H PRN PRN Pain Score 6-10 7 days #28 tabs 12/19/22 rivaroxaban 10 mg tablet (Xarelto) 10 mg PO DINNER 21 days #21 tabs 12/19/22 Hospital Course Operations - (Right hip cemented hemiarthroplasty.) Procedures None Summary of Care Provided Minutes Spent on Discharge: 35 Hospital Course: 82 year old male with below past medical history hospitalized for right hip frac ture, underwent right hip cemented hemiarthroplasty 12/07/[address] Haresh Vázquez, admitted to TCU with debility, here for rehabilitation, strengthening, prior to discharge home with . Discharge home with 12/21/2022.l Physical Exam Const alert General Appearance: cooperative HEENT normocephalic Eyes PERRL and EOMs intact bilaterally Neck supple, no JVD and no carotid bruits Resp normal respiratory effort, normal air movement and clear to auscultation bilaterally Cardio regular rate and regular rhythm GI normal to inspection, nondistended, normoactive bowel sounds, non-tender and non-distended Extremity normal capillary refill General Extremity: Negative for edema Skin no rashes or lesions noted General Skin Exam: no breakdown Psych affect normal Appearance: appropriate Weight / BMI Weight Weight: 66.814 kg Body Mass Index (BMI) 23.1 ABG / Lab / Microbiology Data 12/14/22 07:31 12/14/22 07:31 D/C Instructions Discharge Diet: No restrictions Discharge Activity: Return to Normal Activity, May Shower and Use Walker Weight Bearing Status: Weight bearing as tolerated Call your doctor if you observe: Fever of 101 or Higher, Inability to urinate, Inability to have a bowel movement, Shortness of breath, Dizziness, Fainting spells, Swelling in the ankles, Chest pain and Uncontrolled pain Additional Instructions: Discharge home with 12/21/2022. Please Follow Up With: Haresh Vázquez MD When: As scheduled. Meaningful Use Info Meaningful Use Diagnoses (Choose all that apply): None applicable Discharge Plan Admission Admit Date/Time: 12/12/22 14:30 Primary Reason for Your Visit: Debility. Attending Provider: Brando Wynn Chi Primary Care Provider: Roberto Wing Instructions Additional Instructions / Restrictions: Discharge home with 12/21/2022. Discharge Orders/Prescriptions Prescriptions: New oxycodone 5 mg Tablet 5 mg PO Q4H PRN PRN (Reason: Pain Score 6-10) 7 Days Qty: 28 0RF Xarelto 10 mg Tablet 10 mg PO DINNER 21 Days Qty: 21 0RF Continued losartan 50 mg tablet 50 mg PO DAILY omeprazole 40 mg capsule,delayed release(DR/EC) 40 mg PO DAILY carvedilol 3.125 mg tablet 3.125 mg PO DAILY tamsulosin 0.4 mg capsule 0.8 mg PO QHS atorvastatin 20 mg Tablet 20 mg PO QHS Qty: 0 0RF acetaminophen 500 mg Tablet 1,000 mg PO Q8 Qty: 0 0RF Discontinued oxycodone 5 mg Tablet 5 mg PO Q4H PRN PRN (Reason: Pain Score 6-10) 2 Days Qty: 6 0RF Xarelto 10 mg Tablet 10 mg PO DINNER Qty: 0 0RF No Action (DME) Handicap Placard See Rx Instructions .ROUTE .MEDSUPPLY Qty: 1 0RF Rx Instructions: As directed, length of time 3 years albuterol sulfate 2.5 mg /3 mL (0.083 %) Solution For Nebulization 2.5 mg inhalation Q6H PRN (Reason: shortness of breath or wheezing) Qty: 0 0RF melatonin 3 mg Tablet 3 mg PO QHS PRN PRN (Reason: Insomnia) Qty: 0 0RF Referrals / Follow Up: Roberto Wing MD [Primary Care Provider] - Haresh Vázquez MD [Med Staff - Active Staff] - 12/31/22 9:45 am Disposition Disposition (needs filled in before D/C Order can be placed): Home, Self Care
[2022-12-19] MEDS: Ensure Plus High Protein 120 ML LIQUID PO ×3 (08:07→17:06)
[2022-12-19] MEDS: Carvedilol 3.125 MG TABLET PO ×2 (08:07→17:06)
[2022-12-19 08:09] VITALS: BP 142/55; PULSE 105
--- NOTE | 2022-12-19 10:17 | CASEMGMT ---
Addendum entered by Vicenta Yao 12/19/22 10:35: requested SW return to room for further questions. Pt would like to complete outpatient therapy at [facility] vs [facility]. SW faxed referral to [facility]. Plan: DC home with 12/21, [facility] PT/OT, FWW Original Note: Social Work IDT met with patient and for care plan meeting. Discussed patient's progress in PT/OT/SN. Confirmed pt will DC home with 12/21. will remain this afternoon to participate in therapy training. Pt and agreeable to skilled HHC. SW provided printed skilled HHC agency list with quality and resource data via [employer] Guide. SW to refer for PT/OT. Pt also needs [place]. [place] [facility] [place]. Plan: DC home with 12/21, [facility] PT/OT, FWW Vicenta Yao, TITLE EXAMINER HEAD WRESTLING COACH
[2022-12-19] MEDS: oxyCODONE 5 MG Tablet PO ×2 (13:15→20:06)
[2022-12-19 14:30] VITALS: BP 112/65; PULSE 83; RESP 20; TEMP 36.7; O2SAT 97
--- NOTE | 2022-12-19 16:39 | PCM.PN.DRR ---
TCU RX Drug Regimen Review Subjective/Objective Subjective/Objective: Subjective: TCU Admission. 82 YOM presented to the ER with a fall. Hospitalized for right hip fracture, underwent right hip cemented hemiarthroplasty 12/07/[address] Haresh Vázquez. Admitted to TCU with debility for strengthening and rehabilitation. Objective: Allergies No Known Allergies Allergy (Verified 09/26/22 13:04) Current Medications Generic Name Dose Route Start Last Admin Trade Name Freq PRN Reason Stop Dose Admin Acetaminophen 1,000 mg 12/12/22 22:00 12/19/22 13:16 Acetaminophen 500 Mg Tablet PO 1,000 mg Q8 VIDHYA Administration Albuterol Sulfate 2.5 mg 12/12/22 15:02 Albuterol 2.5 Mg/3 Ml Vial.Neb. INHALATION Q6H PRN shortness of breath or wheezing Atorvastatin Calcium 20 mg 12/12/22 22:00 12/18/22 21:32 Atorvastatin Calcium 20 Mg Tablet PO 20 mg QHS VIDHYA Administration Carvedilol 3.125 mg 12/16/22 08:00 12/19/22 08:07 Carvedilol 3.125 Mg Tablet PO 3.125 mg BIDCM VIDHYA Administration Losartan Potassium 50 mg 12/13/22 06:00 12/19/22 05:33 Losartan Potassium 50 Mg Tablet PO 50 mg DAILY VIDHYA Administration Magnesium Citrate 300 ml 12/12/22 20:56 Magnesium Citrate 300 Ml PO X1 PRN Constipation Melatonin 3 mg 12/12/22 15:02 Melatonin 3 Mg Tablet PO QHS PRN PRN Insomnia Nutritional Formula (Lactose Free) 120 ml 12/12/22 17:45 12/19/22 12:15 Ensure Plus High Protein 120 Ml Liquid PO 120 ml TIDCM VIDHYA Administration Oxycodone HCl 5 mg 12/12/22 15:02 12/19/22 13:15 Oxycodone 5 Mg Tablet PO 5 mg Q4H PRN PRN Administration Pain Score 6-10 Pantoprazole Sodium 40 mg 12/13/22 06:00 12/19/22 05:33 Pantoprazole Sodium 40 Mg Tablet PO 40 mg DAILY VIDHYA Administration Rivaroxaban 10 mg 12/12/22 17:00 12/18/22 16:34 Rivaroxaban 10 Mg Tablet PO 01/11/23 23:59 10 mg DINNER VIDHYA Administration Senna/Docusate Sodium 2 tablet 12/15/22 17:26 Senna/Docusate Sodium 1 Tablet PO BID PRN PRN Constipation Tamsulosin HCl 0.8 mg 12/12/22 22:00 12/18/22 21:31 Tamsulosin Hcl 0.4 Mg Capsule PO 0.8 mg QHS VIDHYA Administration Tuberculin PPD 0.1 ml 12/20/22 10:00 Tuberculin,Purif.Prot.Deriv. 50 Tu/Ml Vial ID 12/20/22 10:01 X1 ONE Problem List Coronary artery disease (Acute) Tobacco abuse (Acute) Hypertension (Chronic) Closed right hip fracture (Acute) Debility (Acute) GERD (gastroesophageal reflux disease) (Chronic) COPD (chronic obstructive pulmonary disease) (Chronic) BPH (benign prostatic hyperplasia) (Chronic) Alcohol abuse (Acute) Vital Signs Temp Pulse Resp BP Pulse Ox O2 Del Method 98.0 F 83 20 H 112/65 97 Room Air 12/19/22 14:30 12/19/22 14:30 12/19/22 14:30 12/19/22 14:30 12/19/22 14:30 12/19/22 14:30 Oxygen Delivery Method Room Air Weight: 66.814 kg Body Mass Index (BMI) 23.1 Sodium 140 mmol/L (136-145) 12/14/22 07:31 Potassium 3.6 mmol/L (3.5-5.1) 12/14/22 07:31 Chloride 108 mmol/L (98-107) H 12/14/22 07:31 Carbon Dioxide 25.0 mmol/L (21.0-32.0) 12/14/22 07:31 Anion Gap 7 (5-15) 12/14/22 07:31 BUN 15 mg/dL (7-18) 12/14/22 07:31 Creatinine 0.62 mg/dL (0.70-1.30) L 12/14/22 07:31 Est GFR (MDRD) Af Amer 158 mL/min (>60) 12/14/22 07:31 Est GFR (MDRD) Non-Af 131 mL/min (>60) 12/14/22 07:31 BUN/Creatinine Ratio 24.0 RATIO (10-20) H 12/14/22 07:31 Glucose 113 mg/dL (74-106) H 12/14/22 07:31 Assessment/Plan: 1. Pain: acetaminophen 1000mg PO Q8 and oxycodone 5mg PO Q4H PRN pain 6-10. Resident has had 19 doses of oxycodone for pain scores of 6-9 in the hip. Please continue to monitor for increased pain, constipation (no documented bowel movements), PRN usage and respiratory depression. 2. Bowel: senna/docusate 2T PO BID PRN and magnesium citrate 300ml PO x1 PRN constipation. Resident has not received any PRN doses. Did receive 3 doses of senna/docusate prior to order changing from scheduled BID to PRN. No documented bowel movements. Please change senna/docusate back to scheduled until resident has a BM or give PRN medications to help with a bowel movement as resident is also receiving oxycodone. Thanks. 3. DVT prophylaxis: rivaroxaban 10mg PO DINNER thru 01/11/23. Please continue to monitor for S/S of bleeding and hemoglobin (last 9 g/dL). 4. CAD: carvedilol 3.125mg PO BIDCM and losartan 50mg PO daily. Please continue to monitor BP (last 112/65), HR (last 83) and renal function. 5. Hyperlipidemia: atorvastatin 20mg PO QHS. Please continue to monitor lipid panel (last 09/26/22), LFTs (last 12/10/22) and muscle pain. 6. COPD: albuterol nebulized solution 2.5mg inhalation Q6H PRN SOB/wheezing. Resident has not received any doses. Please continue to monitor for PRN usage and SOB/wheezing. 7. GERD: pantoprazole 40mg PO daily. Please continue to monitor for S/S of GERD and diarrhea (BEERs medication). 8. BPH: tamsulosin 0.8mg PO daily. Please continue to monitor for S/S of BPH and BP. 9. Insomnia: melatonin 3mg PO QHS PRN insomnia. Resident has not received any doses. Please continue to monitor for insomnia and PRN usage. Assessment/Plan for indications treated with psychotropic medications: None Medical chart and medication regimen reviewed. The following medication irregularities or issues were identified: *1. Senna/docusate 2T PO BID PRN and magnesium citrate 300ml PO x1 PRN constipation. Resident has not received any PRN doses. Did receive 3 doses of senna/docusate prior to order changing from scheduled BID to PRN. No documented bowel movements. Please change senna/docusate back to scheduled until resident has a BM or give PRN medications to help with a bowel movement as resident is also receiving oxycodone. Thanks. Date Date of Note:: 12/19/22
[2022-12-19 17:00] VITALS: BP 140/79; PULSE 84
[2022-12-19] MEDS: Rivaroxaban 10 MG Tablet PO (17:06)
[2022-12-19 19:55] VITALS: PULSE 75; RESP 16; O2SAT 95
[2022-12-19] MEDS: Atorvastatin Calcium 20 MG Tablet PO (21:40)
[2022-12-19] MEDS: Tamsulosin HCl 0.4 MG Capsule 0.8 MG PO (21:40)
[2022-12-20 05:46] LABS: Absolute Lymphocyte Count 2.11 X10^3/uL (0.83-4.51); Absolute Neutrophil Count 6.3 X10^3/uL (2.0-7.7); Basophil# 0.04 X10^3/uL; Basophil% 0.4 % (0-1); Eosinophil# 0.21 X10^3/uL; Eosinophils% 2.2 % (0-5); Hematocrit 29.2 % (40-54); Hemoglobin 9.5 g/dL (13.0-16.5); Lymphocyte # 2.11 X10^3/ul (0.83-4.51); Lymphocyte % 21.9 % (19-41); Mean Corp Hgb Conc 32.5 g/dL (32-36); Mean Corpuscular Hgb 27.8 pg (27.0-32.0); Mean Corpuscular Volume 85.4 fL (80-94); Mean Platelet Vol. 8.1 fl (6.2-12.0); Monocyte# 0.92 X10^3/uL; Monocyte% 9.5 % (0-10); NRBC Flagged by Analyzer 0 % (0-5); Neutrophil # 6.26 X10^3/uL (2.7-7.7); Platelet Count 523 K/mm3 (150-450); RBC Distribution Width CV 16.5 % (11.6-14.6); RBC Distribution Width SD 50.7 fl (35.1-43.9); Red Blood Count 3.42 M/mm3 (4.6-6.2); White Blood Count 9.6 K/mm3 (4.4-11.0)
[2022-12-20] MEDS: Pantoprazole Sodium 40 MG Tablet PO (06:04)
[2022-12-20] MEDS: oxyCODONE 5 MG Tablet PO ×2 (06:04→16:49)
[2022-12-20] MEDS: Acetaminophen 500 MG Tablet 1000 MG PO ×3 (06:04→21:26)
[2022-12-20] MEDS: Losartan Potassium 50 MG Tablet PO (06:04)
[2022-12-20 06:28] LABS: Anion Gap 6 (5-15); BUN 16 mg/dL (7-18); BUN/Creat Ratio 21.1 RATIO (10-20); Calcium,Total 8.9 mg/dL (8.5-10.1); Chloride 102 mmol/L (98-107); Creatinine, Serum 0.76 mg/dL (0.70-1.30); EST Glomerular Filtration Rate 105 mL/min (>60); Est Glom Filt Rate - Afr Amer 127 mL/min (>60); Estimated Creatinine Clearance 53.25 ml/min; Glucose 104 mg/dL (74-106); Potassium 3.7 mmol/L (3.5-5.1); Sodium Level 135 mmol/L (136-145)
[2022-12-20 06:58] VITALS: BP 157/86; PULSE 88
[2022-12-20] MEDS: Ensure Plus High Protein 120 ML LIQUID PO ×3 (07:59→16:49)
[2022-12-20] MEDS: Carvedilol 3.125 MG TABLET PO ×2 (08:01→16:49)
[2022-12-20] MEDS: Tuberculin,Purif.prot.deriv. 50 TU/ML Vial 0.1 ML ID (10:23)
[2022-12-20 10:26] VITALS: PULSE 73; RESP 16; O2SAT 94
[2022-12-20 16:00] VITALS: BP 108/64; PULSE 77; RESP 16; TEMP 36.6; O2SAT 97
[2022-12-20] MEDS: Rivaroxaban 10 MG Tablet PO (16:49)
[2022-12-20] MEDS: Tamsulosin HCl 0.4 MG Capsule 0.8 MG PO (21:26)
[2022-12-20] MEDS: Atorvastatin Calcium 20 MG Tablet PO (21:26)
[2022-12-21] MEDS: oxyCODONE 5 MG Tablet PO (02:56)
[2022-12-21] MEDS: Losartan Potassium 50 MG Tablet PO (06:24)
[2022-12-21] MEDS: Pantoprazole Sodium 40 MG Tablet PO (06:24)
[2022-12-21] MEDS: Acetaminophen 500 MG Tablet 1000 MG PO (06:24)
[2022-12-21 06:28] VITALS: BP 150/82; PULSE 80; RESP 16
[2022-12-21] MEDS: Ensure Plus High Protein 120 ML LIQUID PO (07:43)
[2022-12-21] MEDS: Carvedilol 3.125 MG TABLET PO (07:43)
[2022-12-21 07:45] VITALS: BP 146/65; PULSE 84; RESP 16; TEMP 36.3; O2SAT 93
[2022-12-21 07:46] VITALS: PULSE 84; RESP 16; O2SAT 93
--- NOTE | 2022-12-25 10:49 | MDS.RN ---
Information for the mds was obtained from review of the clinical record, interview of resident, staff ,and direct observation of resident's care.
== END 2022-12-21 10:45 | disposition home or self-care (01) | DRG 561 ==
PROVIDERS: Admitting Provider Family Medicine Geriatric Medicine; PCP Internal Medicine; Referring Provider Family Medicine Geriatric Medicine; Visit Provider Family Medicine Geriatric Medicine
DX: S72.001D Fracture of unspecified part of neck of right femur, subsequent encounter for closed fracture with routine healing (principal); F10.10 Alcohol abuse, uncomplicated; J44.9 Chronic obstructive pulmonary disease, unspecified; I25.10 Atherosclerotic heart disease of native coronary artery without angina pectoris; K21.9 Gastro-esophageal reflux disease without esophagitis; F17.210 Nicotine dependence, cigarettes, uncomplicated; I10 Essential (primary) hypertension; W19.XXXD Unspecified fall, subsequent encounter; N40.0 Benign prostatic hyperplasia without lower urinary tract symptoms; Z96.641 Presence of right artificial hip joint; Z79.899 Other long term (current) drug therapy
CPT/HCPCS: 36415; 80048; 85025; 97110; 97116; 97162; 97166; 97530; 97535

== ENCOUNTER 2023-01-22 13:30 | Outpatient (RCR) | payer MEDICARE, SELFPAY ==
--- NOTE | 2022-12-25 12:05 | HP.OTEVAL ---
Patient's Visit Information Visit Information Visit Information: CHITO CORDON is a 82 year old M, referred to Occupational Therapy by Dr. Brando Wynn MD, with a diagnosis of Right hip fracture, debility, decline in ADLs. Date of Evaluation: 12/25/22 Occupational Therapist: Kristie Batista Subjective Subjective: Pt is an 82 year old who fell and sustained a hip fracture while ambulating in his driveway. Pt is now s/p R cemented hemiarthroplasty with total hip precautions both lateral/posterior and is WBAT. He was discharged from [facility] on 12/21/2022. Pt has a split level home with 1.25 entry step and 6 steps between each level with 2 rails. completes IADLs due to patients macular degeneration. Pt has a walk-in shower with seat and grab bars, stands to shower. 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 Has a dog Federico. Wants to return back to walking and utilize UB as he did prior to fall to gain strength and endurance. 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 Has FWW, straight cane, shower chair, grab bars tub/shower, and raised toilet seat. Pt is right hand dominant, had a r bicep tendon rupture in the past. Pain R hip: Current Pain Intensity: 3 Objective Objective/Observation: Pt ambulates with FWW ROM ROM Comments: Pt WFL in BUE and hands Strength Shoulder: R 16.6/23.6 L 23.9/15.8 Elbow: R 28.6 L 21.8/24.8 Grinder Set Up Operator External: R 60 L 60 Lateral Pinch: R 14 L 12 Tripod Pinch: R 14 L 13 Goals Goal:: Pt will demonstrate good dynamic balance while performing functional tasks within his hip precautions by discharge Goal:: Pt will report 0/10 pain while performing functional tasks by discharge. Goal:: Pt will recall and implement 3 energy conservation techniques to utilize for increased safety and prevent falls. Goal:: Pt will be IND in perform HEP at home by discharge. Goal:: Pt will demo improved BUE strength to complete functional transfers at mod I level for safety and indep during toileting and showering in all environments. Rehabilitation General Assessment: This patient presents with generalized weakness, decreased endurance, and strength post a R hip arthroplasty. This limits his ability to perform ADL and IADL tasks. Pt will benefit from skilled occupational therapy 2x a week for 3 weeks to maximize recovery and return to desired self-care and IADL tasks. Pt and agreeable to POC and verbalize understanding of exercises provided. Rehabilitation Potential: Excellent Anticipated Interventions Anticipated Interventions: A/AAROM/PROM, Strengthening, Joint Protection/Energy Conservation, Ergonomic Education, Fine Motor Coord/Singh, ADL Training and Home Program Visit Plan Frequency: 2x /Week Duration: 3 Weeks General Plan: strengthening endurance dynamic balance TEXT: Thank you for the opportunity to evaluate your patient. For Medicare and Medicare HMO plans, please review the plan of care and approve it. It will need to be FAXED BACK to us at [phone] for Medicare purposes. Please let me know if there are questions or concerns regarding this plan of care. Physician Signature: Date:
--- NOTE | 2022-12-31 16:28 | HP.PTEVAL_ITS ---
Patient's Visit Information Visit Information Visit Information: CHITO CORDON is a 82 year old M referred to Physical Therapy by Dr. Roberto Wing MD with a diagnosis of R hip fracture with R bisi arthroplasty. Date of Evaluation: 12/26/22 Physical Therapist: Edis Park DPT Visit Plan Frequency: 2x /Week Duration: 6 Weeks Plan: Start with RLE ROM, strengthening. Progress gait and functional strengthening as tolerated. Progress balance and stability as well. Subjective Subjective: Pt. is here today for his initial evaluation with diagnosis of R hip fracture and debility. Pt. had a bisi arthroplasty. Pt. reports tripping over an object in his house and fracturing his hip. Pt. had an ORIF and is WBing as tolerated. Pt. did stay on TCU for ~1 week and did well. He was ambulating ~150' with SBA. He has been at home for a little bit now and reports overall doing well. He does have increased R hip pain, but is slowly improving. Pain mostly at lateral hip. Pt. denies N/T in either LE. No calf pain. Pt. is legally blind, but is able to make out bigger objects with gait. Pt. is walking with FWW currently, but used a cane and sometimes no AD at home. Pt. has been doing some exercises, but mostly seated ones and working on walking. He is hopeful to increase his strength and balance and get back to all ADLs without limitations. Pain R hip: Pain Intensity (Out of 10): 3 Pain Intensity Range: 0 and 6 Objective Objective: POSTURE: Pt. has FH posture and leans to the L side in stance. Pt. is able to WB equally, but is tender and tends to avoid. PALPATION: pt. is tender throughout Rquad, HS and lateral thigh. NEURO: Pt. has normal sensation in BLEs. Pt. has 2+ achilles and patellar DTRs. Pt. is able ot rise on heels and toes without limtiations. ROM: PROM: R hip: flexion 90deg, abd 45deg, ext 5deg, AROM: flexion 90deg, abd 15deg, ext neutral. MMT: LLE 5/5 throughout; RLE: ankle 5/5 throughout; knee; ext 4/5, flexion 4/5 mild increase NW; hip: flexion 3+/5, abd 3/5, ext 3/5. Core strength: poor+. GAIT: pt. ambulates with FWW. Pt. has increased pain during R stance phase. Pt. had decreased step length and antalgic pattern during R stance phase. Much more antalgic without AD. Pt. needs to use AD for safety currently. STAIRS: Step to pattern loading LLE only with BHR. Balance/Special Test Scores Lower Extremity Functional Score: 37 TUG Test Time Seconds: 38 30 Second Chair Rise Test Seconds: 10 6 Minute Walk Test: Pt. walked for 2:31 with FWW prior to fatigue. Pt. ambulated 218feet. SBA. Goals Goal 1:: LTG: pt. to be I with HEP. Goal Time Frame: 4-6 Weeks Goal 2:: STG: pt. to complete all bed mobility without increase in R hip pain. Goal Time Frame: 2-4 Weeks Goal 3:: LTG: pt. to have increased RLE strength to 4+/5 throughout. Goal Time Frame: 4-6 Weeks Goal 4:: LTG: Pt. ambulate with LRD with normal gait pattern, no pain with proper safety. Goal Time Frame: 6-8 Weeks Goal 5:: LTG: pt. to negotiate steps with reciprocal pattern with 1 HR without LOB or increase in symptoms. Goal Time Frame: 4-6 Weeks Goal 6:: LTG: pt. to complete TUG with time less than 15 sec without issues. Goal Time Frame: 4-6 Weeks Rehabilitation Potential Physical Therapy Diagnosis: Pt. has signs and symptoms consistent with a R hip fracture and subsequent R bisi arthroplasty. Pt. has marked hypomobility, weakness, difficulty walking and increased pain. Pt. would benefit from PT to address the above progressing back to PLOF. Rehabilitation Potential: Excellent Anticipated Interventions Patient/Client Instruction: Educate patient on: Condition, Plan of Care, Risk Factors and Benefits of Fitness Program For the Purpose of:: To improve decision making, To facilitate caregiver knowledge, To improve self management, To prevent re-injury, To improve ability to perform tasks related to life management and To improve tolerance to ADL's Therapeutic Exercise to Include: Strength training, Power training, Endurance training, Balance training, Body mechanics, Postural training, Flexibilty training and Gait and locomotor training Text: Thank you for the opportunity to evaluate your patient. For Medicare and Medicare HMO plans, please review the plan of care and approve it. It will need to be FAXED BACK to us at [phone] for Medicare purposes. For Medicare only, by signing this I certify the plan of care. Please let me know if there are questions or concerns regarding this plan of care. Physician Signature: Date:__
--- NOTE | 2023-01-22 14:04 | HP.PTDCSUM_ITS ---
Discharge Summary D/C summary: It has been my pleasure to treat CHITO CODRON referred by Dr. Roberto Wing MD, with the diagnosis of R hip fracture with R bisi arthroplasty for a total of 8 visit(s). Discharge Date: 01/22/23 Please see the following information for a summary of their discharge status. Subjective Subjective: Pt. reports overall doing better. He reports his leg is significantly better. He is walking with a single point cane and reports no fall s. I am doing much better. Pt. Pain R hip: Pain Intensity (Out of 10): 1 Overall Improvement % Improvement: 90 Objective Objective/Function: ROM: R hip: flexion 90deg, abd 45deg, ext 10deg, ER/IR not tested. MMT: RLE: ankle and knee 5/5 throughout; hip: flexion 5-/5, abd 5-/5, ext 5-/5. Core strength: fair. gait: Pt. ambulates with slight antalgic pattern during R stance phase, but minimal with use of SPC. He does have some imbalance mostly due to his limited vision. STAIRS: Pt. able to complete with 2 HR with reciprocal pattern without increase in symptoms. TUsec with SPC. Pt. needed cuing for distance to walk and to locate chair. 30 sec to stand rep test: 17with use of UEs. Goals Goal 1:: LTG: pt. to be I with HEP. Goal Progress: Goal Met Goal 2:: STG: pt. to complete all bed mobility without increase in R hip pain. Goal Progress: Goal Met Goal 3:: LTG: pt. to have increased RLE strength to 4+/5 throughout. Goal Progress: Goal Met Goal 4:: LTG: Pt. ambulate with LRD with normal gait pattern, no pain with prope r safety. Goal Progress: Goal Met Goal 5:: LTG: pt. to negotiate steps with reciprocal pattern with 1 HR without LOB or increase in symptoms. Goal Progress: Progressing Goal 6:: LTG: pt. to complete TUG with time less than 15 sec without issues. Goal Progress: Goal Met Plan Plan: Pt. to be DC from PT at this point in time. D/C Information Discharge Comments: Pt. was treated for his R hip fracture with ROM, strengthening and gait/balance. Pt. is overall doing much better. He has met all of his goals. His balance is limited secondary to his limited vision. I did talk to him about continuing to use cane for safety. Pt. consent. He plans to continue with his HEP and progress walking program at home. d/c sentence: If there are questions or concerns regarding this patient's physical therapy, please feel free to call me at [phone]. Thank you for the referral of this patient. Sincerely, Edis Park, DPT Balance/Gait/Functional tests Balance/Special Test Scores Lower Extremity Functional Score: 60 TUG Test Time Seconds: 13 Tug Test: <20 sec.=mostly independent 30 Second Chair Rise Test Seconds: 17 6 Minute Walk Test: Pt. walked for 2:31 with FWW prior to fatigue. Pt. ambulated 218feet. SBA.
--- NOTE | 2023-01-22 15:44 | HP.OT.NRP ---
Patient Information Patient Information: CHITO CORDON was seen in my office for initial evaluation on 12/25/22. The following Plan of Care was established for this patient: POC Established Initial Frequency: 2x /Week Initial Duration: 3 Weeks Plan: Continue POC: 3 weeks -2 x week Anticipated Interventions Anticipated Interventions: A/AAROM/PROM, Strengthening, Joint Protection/Energy Conservation, Ergonomic Education, Fine Motor Coord/Singh, ADL Training and Home Program Last Seen Last Seen: This patient was last seen in our office 01/17/23. Pertinent comments regarding their Occupational therapy will appear below: pt was seen for 7 OT sessions and request d/c with HEP. At this point I will be discontinuing this patient from occupational therapy. I would be happy to see this patient again in the future if found appropriate by the physician. Thank you! Ely Dumont, OTR/L, CHT
== END 2023-01-22 19:00 | disposition home or self-care (01) ==
LOC: OT 13:30
PROVIDERS: PCP Internal Medicine; Referring Provider Family Medicine Geriatric Medicine; Visit Provider Internal Medicine
DX: S72.001D Fracture of unspecified part of neck of right femur, subsequent encounter for closed fracture with routine healing (principal); R53.81 Other malaise
CPT/HCPCS: 97110; 97161; 97164; 97165; 97530

== ENCOUNTER → 2023-08-28 | Outpatient (CLI) | payer MEDICARE, SELFPAY ==
[2023-08-28 17:01] LABS: Basophil# 0.07 X10^3/uL; Basophil% 0.9 % (0-1); Eosinophil# 0.25 X10^3/uL; Eosinophils% 3.3 % (0-5); Hematocrit 35.5 % (40-54); Hemoglobin 11.3 g/dL (13.0-16.5); Lymphocyte % 30.4 % (19-41); Mean Corp Hgb Conc 31.8 g/dL (32-36); Mean Corpuscular Hgb 25.9 pg (27.0-32.0); Mean Corpuscular Volume 81.4 fL (80-94); Mean Platelet Vol. 8.9 fl (6.2-12.0); Monocyte# 0.87 X10^3/uL; Monocyte% 11.5 % (0-10); NRBC Flagged by Analyzer 0 % (0-5); Neutrophil # 4.02 X10^3/uL (2.7-7.7); Neutrophil % 53.2 % (47-70); Platelet Count 352 K/mm3 (150-450); RBC Distribution Width CV 17.1 % (11.6-14.6); RBC Distribution Width SD 50.4 fl (35.1-43.9); Red Blood Count 4.36 M/mm3 (4.6-6.2); White Blood Count 7.6 K/mm3 (4.4-11.0)
[2023-08-28 17:15] LABS: AST(SGOT) 19 U/L (15-37); Alanine Aminotransfer ALT/SGPT 23 U/L (16-61); Albumin, Serum 3.8 g/dL (3.2-5.0); Alkaline Phosphatase 115 U/L (45-117); Anion Gap 7 (5-15); BUN 17 mg/dL (7-18); BUN/Creat Ratio 19.2 RATIO (10-20); Calcium,Total 9.2 mg/dL (8.5-10.1); Chloride 99 mmol/L (98-107); Creatinine, Serum 0.89 mg/dL (0.70-1.30); EST Glomerular Filtration Rate 87 mL/min (>60); Est Glom Filt Rate - Afr Amer 106 mL/min (>60); Globulin 3.7 g/dL (2.2-4.2); Glucose 110 mg/dL (74-106); Protein, Total 7.5 g/dL (6.4-8.2); Sodium Level 132 mmol/L (136-145)
== END | disposition home or self-care (01) ==
LOC: BIMLAB 15:30
PROVIDERS: PCP Internal Medicine; Visit Provider Internal Medicine
DX: I10 Essential (primary) hypertension (principal)
CPT/HCPCS: 36415; 80053; 85025

== ENCOUNTER → 2024-02-28 | Outpatient (CLI) | payer MEDICARE, SELFPAY ==
[2024-02-28 12:36] LABS: Absolute Lymphocyte Count 1.79 X10^3/uL (0.83-4.51); Absolute Neutrophil Count 3.6 X10^3/uL (2.0-7.7); Basophil# 0.07 X10^3/uL; Basophil% 1.1 % (0-1); Eosinophil# 0.19 X10^3/uL; Eosinophils% 2.9 % (0-5); Hemoglobin 12.4 g/dL (13.0-16.5); Lymphocyte # 1.79 X10^3/ul (0.83-4.51); Lymphocyte % 27.6 % (19-41); Mean Corp Hgb Conc 32.6 g/dL (32-36); Mean Corpuscular Hgb 27.4 pg (27.0-32.0); Mean Corpuscular Volume 83.9 fL (80-94); Mean Platelet Vol. 8.6 fl (6.2-12.0); Monocyte# 0.76 X10^3/uL; Monocyte% 11.7 % (0-10); NRBC Flagged by Analyzer 0 % (0-5); Neutrophil # 3.64 X10^3/uL (2.7-7.7); Neutrophil % 56.1 % (47-70); Platelet Count 283 K/mm3 (150-450); RBC Distribution Width CV 15.8 % (11.6-14.6); RBC Distribution Width SD 48.2 fl (35.1-43.9); Red Blood Count 4.53 M/mm3 (4.6-6.2); White Blood Count 6.5 K/mm3 (4.4-11.0)
[2024-02-28 13:21] LABS: AST(SGOT) 16 U/L (15-37); Alanine Aminotransfer ALT/SGPT 20 U/L (16-61); Albumin, Serum 3.7 g/dL (3.2-5.0); Alkaline Phosphatase 118 U/L (45-117); Anion Gap 6 (5-15); BUN 16 mg/dL (7-18); BUN/Creat Ratio 19.1 RATIO (10-20); Calcium,Total 9.4 mg/dL (8.5-10.1); Chloride 101 mmol/L (98-107); Creatinine, Serum 0.84 mg/dL (0.70-1.30); EST Glomerular Filtration Rate 93 mL/min (>60); Est Glom Filt Rate - Afr Amer 113 mL/min (>60); Globulin 3.6 g/dL (2.2-4.2); Glucose 106 mg/dL (74-106); PSA,Total - Annual Screen 4.04 ng/mL (0.00-4.00); Protein, Total 7.3 g/dL (6.4-8.2); Sodium Level 132 mmol/L (136-145)
== END | disposition home or self-care (01) ==
LOC: BIMLAB 11:08
PROVIDERS: PCP Internal Medicine; Referring Provider Internal Medicine; Visit Provider Internal Medicine
DX: N40.0 Benign prostatic hyperplasia without lower urinary tract symptoms (principal); I10 Essential (primary) hypertension
CPT/HCPCS: 36415; 80053; 84153; 85025; G0103

== ENCOUNTER → 2024-08-28 | Outpatient (CLI) | payer MEDICARE, SELFPAY ==
[2024-08-28 16:09] LABS: Anion Gap 12 (5-15); BUN 13 mg/dL (4-19); BUN/Creat Ratio 16.4 RATIO (10-20); Carbon Dioxide 21.9 mmol/L (21.0-32.0); Chloride 94 mmol/L (98-108); EST Glomerular Filtration Rate 87 (>60); Glucose 99 mg/dL (70-99); PSA,Total- Diagnostic 3.71 ng/mL (0.00-4.00); Potassium 4.7 mmol/L (3.3-5.1); Sodium Level 129 mmol/L (133-145)
== END | disposition home or self-care (01) ==
LOC: BIMLAB 12:09
PROVIDERS: PCP Internal Medicine; Referring Provider Internal Medicine; Visit Provider Internal Medicine
DX: N40.0 Benign prostatic hyperplasia without lower urinary tract symptoms (principal); I10 Essential (primary) hypertension
CPT/HCPCS: 36415; 80048; 84153

== ENCOUNTER 2024-08-29 19:10 | Inpatient (IN) | payer MEDICARE, SELFPAY ==
[2024-08-29 19:11] VITALS: BP 146/92; PULSE 84; RESP 18; TEMP 36.1; O2SAT 92
[2024-08-29 19:19] VITALS: BMI 22.8
--- NOTE | 2024-08-29 19:23 | CT_ITS ---
EXAM: CT BRAIN/HEAD WITHOUT CONTRAST CLINICAL HISTORY: FALL. Complains of hip pain. COMPARISON: No relevant prior. TECHNIQUE: Contiguous axial scans of 3.75 mm slice thicknesses with sagittal and coronal reconstruction images. One or more dose reduction techniques were utilized (e.g., automated exposure control, adjustment of mA and/or kv according to patient size, use of iterative reconstruction technique). FINDINGS: Cerebrum: No intraparenchymal hemorrhage. A focal area of decreased attenuation in the anterior limb of the right internal capsule, axial image 28. Central white matter and subcortical diffuse hypoattenuation. Age-appropriate cerebral cortical atrophy.. No mass effect or midline shift. Ventricles and cisterns: Prominent but appropriately sized for patient's age. Extra-axial fluid: Unremarkable. Posterior fossa: Unremarkable cerebellum. No abnormalities involving the brainstem. Paranasal sinuses: Normal. Vasculature: Severe atherosclerotic calcific disease of the vertebrobasilar and carotid arteries.. Mastoid air cells: Normal. Calvarium: Unremarkable. Beam hardening artifacts related to dental enhancements. Soft tissues: Unremarkable. CT/Brain/Head without Contrast IMPRESSION: 1. Chronic age-related microvascular ischemic changes. 2. Lacunar infarct involving the anterior limb, right internal capsule. 3. Age-appropriate senescent change. 4. No acute intracranial findings. 5. Severe atherosclerotic calcific disease. Reading Location: [facility]
--- NOTE | 2024-08-29 19:24 | EX.ED.DYSGE1 ---
HPI <CASSIDY Long - Last Filed: 08/29/24 21:12> History of Present Illness Chief Complaint: Lower Extremity Injury Narrative Narrative: 84-year-old male with PMH of HTN, CAD, GERD, COPD, aortoiliac aneurysm repair, macular degeneration presents after a fall. He was leaving a restaurant and turned to get his coat when he lost his balance and fell hitting the back of his head and his left hip on the ground. No LOC. No blood thinners. He was lifted up and carried into his car and then brought in in a wheelchair by staff here. He has not been ambulatory since the event. PFSH <CASSIDY Long - Last Filed: 08/29/24 21:12> COUNTS INCLUDE 234 BEDS AT THE [facility] Medical History Preoperative cardiovascular examination Displaced fracture of right femoral neck Macular degeneration Wears dentures Easy bruising History of ulceration Smoker Hoarseness History of echocardiogram History of stress test Right inguinal hernia COPD (chronic obstructive pulmonary disease) Chronic cough BPH (benign prostatic hyperplasia) COVID-19 vaccine series completed Alcohol abuse Syncope Cellulitis of scrotum Scrotal abscess Fecal urgency Spinal stenosis of lumbar region with neurogenic claudication Ischemic cardiomyopathy Iliac artery aneurysm, right Abdominal aortic aneurysm (AAA) Atherosclerotic heart disease of [place] coronary artery without angina pectoris Nicotine dependence Essential (primary) hypertension Gastric ulcer Chronic back pain History of RSV infection Vision problem GERD (gastroesophageal reflux disease) Cataract Bone fracture Back problem Seasonal allergies Home Medications ?Medication ?Instructions ?Recorded ?Last Taken ?Type Handicap Placard #1 ea 12/29/21 Unknown Rx albuterol sulfate 2.5 mg/3 mL 2.5 mg (3 mL) inhalation Q6H PRN 12/12/22 Unknown Rx (0.083 %) solution for nebulization shortness of breath or wheezing #0 mL atorvastatin 20 mg tablet 20 mg PO QHS Cholesterol #0 tabs 12/12/22 Unknown Rx carvedilol 3.125 mg tablet 3.125 mg PO DAILY HEART #90 tabs 01/14/24 Unknown Rx omeprazole 40 mg capsule,delayed 40 mg PO DAILY #90 caps 02/28/24 Unknown Rx release losartan 50 mg tablet 50 mg PO DAILY BLOOD PRRESSURE #90 04/30/24 Unknown Rx tabs budesonide-formoterol HFA 160 2 puff inhalation BID #10.2 grams 06/08/24 Unknown Rx mcg-4.5 mcg/actuation aerosol inhaler (Symbicort) tamsulosin 0.4 mg capsule See Rx Instructions .Route 08/17/24 Unknown Rx .COMPLEX #180 CAPSULES guaifenesin 1,200 mg tablet, 1,200 mg PO BID #120 tabs 08/28/24 Unknown Rx extended release 12 hr (Mucinex) Allergy/AdvReac Type Severity Reaction Status Date / Time No Known Allergies Allergy Verified 08/29/24 19:12 Family History Grandfather Cancer Father Brain aneurysm Daughter Hypertension Surgical History History of right hip hemiarthroplasty History of right inguinal hernia repair History of esophagogastroduodenoscopy (EGD) History of colonoscopy History of back surgery History of left heart catheterization (11/11/13) History of endovascular stent graft for abdominal aortic aneurysm (AAA) (12/11/13) Rupture of biceps tendon Social History household members: spouse housing: house Smoking Status: Current every day smoker tobacco type: cigarettes Tobacco: How many years used: 62 alcohol intake: current alcohol intake frequency: 3 or more drinks per day Alcohol type: beer substance use type: does not use what type of physical activity do you participate in: none ROS <CASSIDY Long - Last Filed: 08/29/24 21:12> ROS ED ROS Narrative Eyes: Negative for visual change. CVS: Negative for chest pain, syncope. Respiratory: Negative for shortness of breath. GI: Negative for nausea, vomiting. Neuro: Negative for headache, motor/sensory dysfunction. Musc: Positive for left hip pain. EXAM <CASSIDY Long - Last Filed: 08/29/24 21:12> Physical Exam Narrative Exam Narrative: CONST: Patient sitting in no acute distress. EYES: Normal inspection. HEAD: Head normocephalic atraumatic, no raccoon eyes or cortez sign, no hemotympanum, no nasal septal hematoma, no CSF otorrhea or rhinorrhea. NECK: Normal inspection. No midline spinal tenderness, no step off or crepitus. RESP: No respiratory distress, CTAB. Chest wall nontender. CVS: Regular rate and rhythm, no murmur, no gallop. ABD: Soft and nontender, no guarding or rebound, nondistended. Back: Normal inspection, no midline tenderness. SKIN: Color normal, no rash, warm, dry, intact. EXTREMITIES: Normal appearance of upper extremities. Full range of motion of both arms, nontender, 2+ radial pulses. Left leg slightly shortened, hip pain with logroll, no tenderness of the knee tibia ankle or foot. Right leg nontender. Small abrasion right anterior tibia. 2+ DP pulses. NEURO: Alert and answering questions appropriately. PSYCH: Normal affect. Const Vital Signs: 08/29/24 19:11 08/29/24 20:50 Temperature 96.9 F L 96.9 F L Temperature Source Temporal Pulse Rate 84 84 Respiratory Rate 18 18 Blood Pressure 146/92 H 146/92 H Blood Pressure Mean 110 110 Pulse Ox 92 92 <Jeison Paez MD - Last Filed: 08/31/24 23:28> Physical Exam Const Vital Signs: 08/29/24 19:11 08/29/24 20:50 Temperature 96.9 F L 96.9 F L Temperature Source Temporal Pulse Rate 84 84 Respiratory Rate 18 18 Blood Pressure 146/92 H 146/92 H Blood Pressure Mean 110 110 Pulse Ox 92 92 MDM <CASSIDY Long - Last Filed: 08/29/24 21:12> [facility] Narrative Medical decision making narrative: History gathered from: Patient and Consults: Hospitalist, orthopedics Differential includes but not limited to hip contusion, pelvic or hip fracture or dislocation 84-year-old male had a mechanical fall hitting his head and left hip. He has not been ambulatory since the event due to left hip pain. Arrives awake and alert. Stable vital signs. GCS 15. He has no external signs of head injury. Left leg is slightly shortened with hip pain. MSPs intact. No other injuries noted. CT brain is negative for traumatic injury. It notes a lacunar infarct but this is not acute. X-ray shows left femoral neck fracture. His right hip was previously repaired by Dr. Vázquez so I consulted him and he advised the patient be n.p.o. at midnight for surgery tomorrow. I discussed the case with the hospitalist for admission. Lab Data Attestation: I reviewed the patient's lab results. Labs: Laboratory Results - last 24 hr 08/29/24 19:58 WBC 11.0 RBC 4.17 L Hgb 11.7 L Hct 34.4 L MCV 82.5 MCH 28.1 MCHC 34.0 RDW Std Deviation 46.5 H RDW Coeff of Tea 15.4 H Plt Count 266 MPV 8.5 Immature Gran % (Auto) 0.900 Neut % (Auto) 80.6 H Lymph % (Auto) 9.6 L [place] % (Auto) 7.9 Eos % (Auto) 0.5 Baso % (Auto) 0.5 Absolute Neuts (auto) 8.9 H Absolute Lymphs (auto) 1.06 Nucleated RBC % 0 Sodium 127 L Potassium 3.9 Chloride 93 L Carbon Dioxide 19.0 L Anion Gap 15 BUN 11 Creatinine 0.74 Estim Creat Clear Calc 64.26 Est GFR (MDRD) Non-Af 89 BUN/Creatinine Ratio 14.9 Glucose 174 H Calcium 9.2 Radiography Diagnostic Testing: Clinical Impression(s) from Imaging Studies Brain CT 08/29/24 19:23 IMPRESSION: 1. Chronic age-related microvascular ischemic changes. 2. Lacunar infarct involving the anterior limb, right internal capsule. 3. Age-appropriate senescent change. 4. No acute intracranial findings. 5. Severe atherosclerotic calcific disease. Reading Location: [facility] Hip/Pelvis X-Ray 08/29/24 19:35 IMPRESSION: Acute subcapital fracture of the left hip with varus deformity. Right hip hemiarthroplasty. Other nonacute findings detailed above. Reading Location: [facility] ED attending interpretation of left hip shows subcapital fracture, no pelvic fracture. <Jeison Paez MD - Last Filed: 08/31/24 23:28> [facility] Lab Data Labs: Laboratory Results - last 24 hr 08/29/24 19:58 WBC 11.0 RBC 4.17 L Hgb 11.7 L Hct 34.4 L MCV 82.5 MCH 28.1 MCHC 34.0 RDW Std Deviation 46.5 H RDW Coeff of Tea 15.4 H Plt Count 266 MPV 8.5 Immature Gran % (Auto) 0.900 Neut % (Auto) 80.6 H Lymph % (Auto) 9.6 L [place] % (Auto) 7.9 Eos % (Auto) 0.5 Baso % (Auto) 0.5 Absolute Neuts (auto) 8.9 H Absolute Lymphs (auto) 1.06 Nucleated RBC % 0 Sodium 127 L Potassium 3.9 Chloride 93 L Carbon Dioxide 19.0 L Anion Gap 15 BUN 11 Creatinine 0.74 Estim Creat Clear Calc 64.26 Est GFR (MDRD) Non-Af 89 BUN/Creatinine Ratio 14.9 Glucose 174 H Calcium 9.2 Radiography Diagnostic Testing: Clinical Impression(s) from Imaging Studies Brain CT 08/29/24 19:23 IMPRESSION: 1. Chronic age-related microvascular ischemic changes. 2. Lacunar infarct involving the anterior limb, right internal capsule. 3. Age-appropriate senescent change. 4. No acute intracranial findings. 5. Severe atherosclerotic calcific disease. Reading Location: [facility] Hip/Pelvis X-Ray 08/29/24 19:35 IMPRESSION: Acute subcapital fracture of the left hip with varus deformity. Right hip hemiarthroplasty. Other nonacute findings detailed above. Reading Location: [facility] Management Discussion w/another healthcare provider: Hospitalist and Self Defense Instructor (Dr. Vázquez, orthopedics) Treatment and Re-Evaluation :: Dr. Paez: I have personally performed a face to face assessment of the patient and have reviewed the SUSAN Note. I performed a substantive portion of the visit including all aspects of the following. My garcia findings include: History is fall, left hip pain. Ambulated. History of right DIONICIO. Exam is GCS 15. ABCs intact. Diffuse tenderness to palpation left hip. Neurovascular intact distally. Medical Decision Making: Check x-rays. X-ray of the left hip interpreted by myself independently shows subcapital fracture. Discussed with orthopedics. Admit to medicine. Disposition is admit in stable condition. Other additions or changes: [None] Discharge Plan Dx/Rx/DC Orders Clinical Impression: Closed fracture of left hip, Fall, Closed head injury Disposition Disposition: Acute Care Hospital [facility] Discharge Date/Time: 08/29/24 21:57
--- NOTE | 2024-08-29 19:35 | RAD_ITS ---
PROCEDURE: LEFT HIP, UNI W/ PELVIS 2-3 VIEWS REASON FOR EXAM: LEFT PAIN Patient fell. TECHNIQUE: AP pelvis and 2 views of the left hip. COMPARISON: 12/31/2022. FINDINGS: Acute subcapital fracture of the left hip with varus deformity. Femoral head is in good position in the acetabulum. Soft tissues are unremarkable. Lower abdominal aorta and bilateral iliac stent graft. Intravascular coil in the right hemipelvis. A right hip hemiarthroplasty. Atherosclerotic calcific disease in the femoral arteries. RAD/HIP, UNI W/ Pelvis 2-3 Views IMPRESSION: Acute subcapital fracture of the left hip with varus deformity. Right hip hemiarthroplasty. Other nonacute findings detailed above. Reading Location: [facility]
[2024-08-29] MEDS: Morphine 4 MG/ML Syringe IV ×2 (19:48→21:15)
[2024-08-29] MEDS: Ondansetron 4 MG/2 ML Vial IV (19:48)
[2024-08-29 20:03] LABS: Absolute Lymphocyte Count 1.06 X10^3/uL (0.83-4.51); Absolute Neutrophil Count 8.9 X10^3/uL (2.0-7.7); Basophil# 0.05 X10^3/uL; Basophil% 0.5 % (0-1); Eosinophil# 0.06 X10^3/uL; Eosinophils% 0.5 % (0-5); Hematocrit 34.4 % (40-54); Hemoglobin 11.7 g/dL (13.0-16.5); Lymphocyte # 1.06 X10^3/ul (0.83-4.51); Lymphocyte % 9.6 % (19-41); Mean Corpuscular Hgb 28.1 pg (27.0-32.0); Mean Corpuscular Volume 82.5 fL (80-94); Mean Platelet Vol. 8.5 fl (6.2-12.0); Monocyte# 0.87 X10^3/uL; Monocyte% 7.9 % (0-10); NRBC Flagged by Analyzer 0 % (0-5); Neutrophil # 8.87 X10^3/uL (2.7-7.7); Neutrophil % 80.6 % (47-70); Platelet Count 266 K/mm3 (150-450); RBC Distribution Width CV 15.4 % (11.6-14.6); RBC Distribution Width SD 46.5 fl (35.1-43.9); Red Blood Count 4.17 M/mm3 (4.6-6.2)
[2024-08-29 20:30] LABS: Anion Gap 15 (5-15); BUN 11 mg/dL (4-19); BUN/Creat Ratio 14.9 RATIO (10-20); Calcium,Total 9.2 mg/dL (7.6-11.0); Chloride 93 mmol/L (98-108); Creatinine, Serum 0.74 mg/dL (0.70-1.20); EST Glomerular Filtration Rate 89 (>60); Estimated Creatinine Clearance 64.26 ml/min (50-250); Glucose 174 mg/dL (70-99); Potassium 3.9 mmol/L (3.3-5.1); Sodium Level 127 mmol/L (133-145)
--- NOTE | 2024-08-29 20:38 | HP.PCM.HOS_ITS ---
[facility] - [facility] General Date of Admission: 08/29/24 Date of Service: 08/29/24 Chief Complaint: Left Hip Pain after Fall. [facility] Narrative CHITO CORDON, is a 84 M with a past medical history of essential hypertension; on carvedilol and losartan, hyperlipidemia; on atorvastatin, CAD; with ischemic cardiomyopathy, history of AAA; s/p endovascular stent graft (2013), history of Right iliac artery aneurysm (2013), history of tobacco abuse; with subsequent COPD, history of alcohol abuse; patient admitting to 3 or more alcoholic drinks per day, history of macular degeneration, history of cataracts, history of Right inguinal hernia; s/p repair (2021), history of scrotal abscess, BPH; on tamsulosin, GERD; with history of gastric ulcer on omeprazole and OA; with history of Right femoral neck fracture s/p ORIF by Dr. 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 Mr. Cordon reports his symptoms began approximately 1 hour prior to arrival when he was at a local restaurant about to leave when he turned to get his coat and lost his balance falling backward and then striking his Left hip and head on the ground. He denies loss of consciousness with this fall or significant traumatic head injury. He was then lifted up and carried into his car and then brought in a wheelchair by staff here. He has not been able to ambulate since the fall with ongoing Left hip pain made worse with movement. There was no report of fever, chills, nausea, vomiting, diarrhea, constipation, abdominal pain, chest pain, shortness of breath or headache. In the ER his x-ray revealed Acute Subcapital Fracture of the Left Hip with varus deformity with evidence of previous Right hip hemiarthroplasty and his brain CT revealed chronic age- related microvascular ischemic changes with lacunar infarct involving the anterior limb, Right internal capsule with age-appropriate senescent change and no acute intracranial findings in addition to severe atherosclerotic calcific disease. He was also noted to have laboratory evidence of mild Hyponatremia of 127 mmol/L present on admission. The ER physician then contacted Dr. Vázquez of orthopedic surgery about this patient who recommended admission to the hospitalist service with formal consultation and ORIF pending in the a.m. with help appreciated in advance. He was then admitted to the general medical floor for ongoing care for status expected to extend beyond 2 midnights. [facility] Medical History Preoperative cardiovascular examination Displaced fracture of right femoral neck Macular degeneration Wears dentures Easy bruising History of ulceration Smoker Hoarseness History of echocardiogram History of stress test Right inguinal hernia COPD (chronic obstructive pulmonary disease) Chronic cough BPH (benign prostatic hyperplasia) COVID-19 vaccine series completed Alcohol abuse Syncope Cellulitis of scrotum Scrotal abscess Fecal urgency Spinal stenosis of lumbar region with neurogenic claudication Ischemic cardiomyopathy Iliac artery aneurysm, right Abdominal aortic aneurysm (AAA) Atherosclerotic heart disease of [place] coronary artery without angina pectoris Nicotine dependence Essential (primary) hypertension Gastric ulcer Chronic back pain History of RSV infection Vision problem GERD (gastroesophageal reflux disease) Cataract Bone fracture Back problem Seasonal allergies Home Medications ?Medication ?Instructions ?Recorded ?Last Taken ?Type Handicap Placard #1 ea 12/29/21 Unknown Rx albuterol sulfate 2.5 mg/3 mL 2.5 mg (3 mL) inhalation Q6H PRN 12/12/22 Unknown Rx (0.083 %) solution for nebulization shortness of breat h or wheezing #0 mL atorvastatin 20 mg tablet 20 mg PO QHS Cholesterol #0 tabs 12/12/22 Unknown Rx carvedilol 3.125 mg tablet 3.125 mg PO DAILY HEART #90 tabs 01/14/24 Unknown Rx omeprazole 40 mg capsule,delayed 40 mg PO DAILY #90 ca ps 02/28/24 Unknown Rx release losartan 50 mg tablet 50 mg PO DAILY BLOOD PRRESSU RE #90 04/30/24 Unknown Rx tabs budesonide-formoterol HFA 160 2 puff inhalation BID #1 0.2 grams 06/08/24 Unknown Rx mcg-4.5 mcg/actuation aerosol inhaler (Symbicort) tamsulosin 0.4 mg capsule See Rx Instructions .Route 0 08/17/24 Unknown Rx .COMPLEX #180 CAPSULES guaifenesin 1,200 mg tablet, 1,200 mg PO BID #120 tabs 08/28/24 Unknown Rx extended release 12 hr (Mucinex) Allergy/AdvReac Type Severity Reaction Status Date / Time No Known Allergies Allergy Verified 08/29/24 19:12 Family History Grandfather Cancer Father Brain aneurysm Daughter Hypertension Surgical History History of right hip hemiarthroplasty History of right inguinal hernia repair History of esophagogastroduodenoscopy (EGD) History of colonoscopy History of back surgery History of left heart catheterization (11/11/13) History of endovascular stent graft for abdominal aortic aneurysm (AAA) (12/11/13) Rupture of biceps tendon Social History household members: spouse housing: house Smoking Status: Current every day smoker tobacco type: cigarettes Tobacco: How many years used: 62 alcohol intake: current alcohol intake frequency: 3 or more drinks per day Alcohol type: beer substance use type: does not use what type of physical activity do you participate in: none ROS ROS Narrative Review of Systems: Constitutional: Patient denies fever or chills. Eyes: Patient denies changes vision or discharge from eyes. ENT: Patient denies runny nose, sore throat or ear pain. Resp: Patient denies shortness of breath or cough. CV: Patient denies chest pain, palpitations, heart racing, syncope or lower extremity edema. GI: Patient denies abdominal pain, nausea, vomiting, diarrhea or constipation. : Patient denies dysuria, hematuria or urinary frequency. MSK: Patient admits to severe Left hip pain made worse with movement leaving him unable to ambulate as per HPI. Skin: Patient denies rash, abscess, wounds or jaundice. Psych: Patient denies symptoms of uncontrolled depression or anxiety. Neuro: Patient denies headache, paresthesias or focal neurologic deficits. Allergy: Patient denies lip swelling, tongue swelling or urticaria. Hematology: Patient denies easy bleeding or easy bruisability. Endocrinology: Patient denies polyuria, polydipsia or polyphagia. 14 point ROS otherwise negative except for positives noted above in HPI. Vital Signs Vital Signs Vital Signs: 08/29/24 19:11 Temperature 96.9 F L Temperature Source Temporal Pulse Rate 84 Respiratory Rate 18 Blood Pressure 146/92 H Blood Pressure Mean 110 Pulse Ox 92 Weight Weight: 147 lb 11.355 oz Body Mass Index (BMI) 22.8 Physical Exam Const alert, oriented x3, no apparent distress and average body habitus General Appearance: cooperative HEENT normocephalic, head/scalp atraumatic, hearing grossly normal bilaterally and moist oral mucous membranes Eyes PERRL and EOMs intact bilaterally Neck no lymphadenopathy and supple Resp normal respiratory effort, no retractions, no use of accessory muscles and clear to auscultation bilaterally Cardio regular rate and regular rhythm GI normal to inspection, nondistended, normoactive bowel sounds, soft to palpation, non-tender and non-distended Extremity Extremity Narrative: Left lower extremity shortened externally rotated with positive logroll. Small abrasion noted over the Right anterior tibia. No signs of vascular compromise patient neurovascularly intact. Skin Skin Narrative: Patient has a small abrasion to the Right anterior tibia. Neuro oriented x3, CN's II-XII intact bilaterally, moves all extremities and no focal motor deficits Sensorium / Orientation: awake, alert, oriented to person, oriented to place and oriented to time Speech: speech normal Psych affect normal Results Medical Records Data Attestation: I reviewed the patient's medical records Lab / Micro Data Attestation: I reviewed the patient's lab results. 08/29/24 19:58 08/29/24 19:58 Labs: Laboratory Results - last 24 hr 08/29/24 19:58: WBC 11.0, RBC 4.17 L, Hgb 11.7 L, Hct 34.4 L, MCV 82.5, MCH 28.1, MCHC 34.0, RDW Std Deviation 46.5 H, RDW Coeff of Tea 15.4 H, Plt Count 266, MPV 8.5, Immature Gran % (Auto) 0.900, Neut % (Auto) 80.6 H, Lymph % (Auto) 9.6 L, [place] % (Auto) 7.9, Eos % (Auto) 0.5, Baso % (Auto) 0.5, Absolute Neuts (auto) 8.9 H, Absolute Lymphs (auto) 1.06, Nucleated RBC % 0, Sodium 127 L, Potassium 3.9, Chloride 93 L, Carbon Dioxide 19.0 L, Anion Gap 15, BUN 11, Creatinine 0.74, Estim Creat Clear Calc 64.26, Est GFR (MDRD) Non-Af 89, BUN/Creatinine Ratio 14.9, Glucose 174 H, Calcium 9.2 Imaging Radiology Impression Brain CT 08/29/24 19:23 IMPRESSION: 1. Chronic age-related microvascular ischemic changes. 2. Lacunar infarct involving the anterior limb, right internal capsule. 3. Age-appropriate senescent change. 4. No acute intracranial findings. 5. Severe atherosclerotic calcific disease. Reading Location: [facility] Hip/Pelvis X-Ray 08/29/24 19:35 IMPRESSION: Acute subcapital fracture of the left hip with varus deformity. Right hip hemiarthroplasty. Other nonacute findings detailed above. Reading Location: [facility] Assessment & Plan Assessment/Plan (1) Closed fracture of left hip: QUALIFIERS: Encounter type: initial encounter Qualified Code(s): S72.002A - Fracture of unspecified part of neck of left femur, initial encounter for closed fracture (2) Hyponatremia: (3) Alcohol abuse: (4) Tobacco abuse: (5) COPD (chronic obstructive pulmonary disease): QUALIFIERS: COPD type: unspecified COPD Qualified Code(s): J44.9 - Chronic obstructive pulmonary disease, unspecified (6) Osteoarthritis: QUALIFIERS: Osteoarthritis location: unspecified site O steoarthritis type: unspecified Qualified Code(s): M19.90 - Unspecified osteoarthritis, unspecified site (7) Spinal stenosis of lumbar region with neurogenic claudication: (8) Chronic back pain: QUALIFIERS: Back pain laterality: unspecified Back pain location: back pain in unspecified location Qualified Code(s): M54.9 - Dorsalgia, unspecified; G89.29 - Other chronic pain PLAN: Plan 1. Acute Subcapital Fracture of the Left Hip with varus deformity after Fall - Admit to general medical floor with telemetric monitoring. Keep n.p.o. except for ice chips, sips and medications. Give acetaminophen as needed for [id number] (level 1-5/10) pain. Give morphine IV as needed for severe (level 6-10/10) pain. Finally, orthopedic surgeon has already been contacted by the ER with plan for ORIF in the a.m. with help appreciated in advance. 2. Hyponatremia of 127 mmol/L present on admission complicating #1 - Give NS IVF @ 70 cc/hr and recheck level in AM to follow trend. We will also check urine and serum osmolality. 3. History of alcohol abuse; patient admitting to 3 or more alcoholic drinks per day compounding #1 & #2 - Check REBECCA level to see if this issue may have played a role in causing #1. EtOH Cessation will be strongly encouraged. Patient will be started on oral phenobarbital taper with other prn medications for treatment of possible impending withdrawal. Check UDS, B12 and folate levels. 4. History of tobacco abuse; with subsequent COPD adding to the medical complexity of #1 - #3 - Tobacco Cessation will be strongly encouraged with Nicotine patch offered to control cravings. 5. OA; with history of Right femoral neck fracture s/p ORIF by Dr. 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 6. Essential Hypertension; on carvedilol and losartan - Maintain current regimen plus give prn IV hydralazine for systolic blood pressure > 160 mmHg. 7. Hyperlipidemia; on atorvastatin - Resume statin and check Lipid Profile. 8. CAD; with ischemic cardiomyopathy - Noted. Serialize troponin. 9. History of AAA; s/p endovascular stent graft (2013) - Noted. 10. History of Right iliac artery aneurysm (2013) - Noted. 11. History of macular degeneration - Stable. 12. History of cataracts - Noted. 13. History of Right inguinal hernia; s/p repair by Dr. Vázquez (2021) - Noted. 14. History of scrotal abscess - Noted with no signs of recurrence at this time. 15. BPH; on tamsulosin - Maintain tamsulosin as before. 16. GERD; with history of gastric ulcer on omeprazole - Resume PPI. who presents to [facility] ER complaining of left hip pain after fall. 17. DVT prophylaxis - SCD on RLE only at this time. We we will avoid preoperative chemoprophylaxis due to increased risk of potential bleeding complications with traumatic fracture. Orthopedist to decide on postoperative DVT prophylaxis. Total time: Approximately (but not less than) 75 minutes. Charges/Coding Visit Charges Inpatient E&M: 35149 Init Hosp L3
[2024-08-29 20:50] VITALS: BP 146/92; PULSE 84; RESP 18; TEMP 36.1; O2SAT 92
[2024-08-29 21:50] VITALS: BP 176/102; PULSE 108; RESP 18; TEMP 36.6; O2SAT 94
[2024-08-29 22:01] VITALS: BMI 22.0
[2024-08-29 22:07] LABS: Prothrombin Time (Protime)PT. 13.3 SECONDS (11.7-14.9)
[2024-08-29 22:12] VITALS: BMI 22.0
[2024-08-29] MEDS: Phenobarbital 32.4 MG Tablet PO (22:37)
[2024-08-29] MEDS: 0.9% Normal Saline (1000mL) 1,000 ML 70 ML IV (22:37)
[2024-08-29] MEDS: Acetaminophen 325 MG Tablet 650 MG PO (22:38)
[2024-08-29] MEDS: guaiFENesin 1,200 MG Tablet 1200 MG PO (22:38)
[2024-08-29] MEDS: Tamsulosin HCl 0.4 MG Capsule 0.8 MG PO (22:38)
[2024-08-29] MEDS: Gabapentin 300 MG Capsule PO (22:38)
[2024-08-29] MEDS: Atorvastatin Calcium 20 MG Tablet PO (22:40)
[2024-08-29] MEDS: 0.9% Saline Lock 10 ML Syringe IV (22:43)
[2024-08-29 22:54] LABS: Hemoglobin A1c 6.1 % (<=5.6)
[2024-08-29 23:09] LABS: Troponin T High Sensitivity 13 ng/L (<=22); Vitamin B12 544 pg/mL (180-914)
[2024-08-29 23:33] LABS: Troponin T High Sens 2 HR 15 ng/L (<=22)
[2024-08-29 23:42] LABS: Magnesium 1.6 mg/dL (1.5-2.2)
[2024-08-30] VITALS (31 sets, daily range): BP systolic 93–181; BP diastolic 55–112; PULSE 76–111; RESP 14–20; TEMP 36.6–37.1; O2SAT 88–98; BMI 22.1; BMI 23.5
[2024-08-30 00:03] LABS: Osmolality, Serum 274 mOsm/KG (280-301)
[2024-08-30] MEDS: Morphine 2 MG/ML Syringe IV (00:36)
[2024-08-30] MEDS: Phenobarbital 32.4 MG Tablet PO ×4 (00:36→20:48)
[2024-08-30 01:46] LABS: Osmolality, Urine 615 mOsm/KG
[2024-08-30 02:08] LABS: Amphetamine Urine NEGATIVE (<1000 ng/mL); Barbiturate Urine NEGATIVE (< 200 ng/mL); Benzodiazepine Urine NEGATIVE (< 200 ng/mL); Buprenorphine Urine NEGATIVE (< 200 ng/mL); Cocaine Urine NEGATIVE (< 300 ng/mL); Fentanyl, Urine NEGATIVE; Methadone Urine NEGATIVE (< 300 ng/mL); Opiates Urine PRESUMPTIVE POSITIVE (< 300 ng/mL); Oxycodone, Urine NEGATIVE (< 100 ng/mL); PCP Urine NEGATIVE (< 25 ng/mL); THC Urine NEGATIVE (< 50 ng/mL)
--- NOTE | 2024-08-30 06:00 | EKG12_ITS ---
Test Reason : PRE-OP Blood Pressure : */* mmHG Vent. Rate : 96 BPM Atrial Rate : 96 BPM P-R Int : 170 ms QRS Dur : 100 ms QT Int : 378 ms P-R-T Axes : 69 38 62 degrees QTcB Int : 477 ms Normal sinus rhythm Normal ECG When compared with ECG of 07-Dec-2022 04:57, No significant change was found Confirmed by DHIRAJ PANTOJA, TAI ([id number]), editor farm journal JOHNIE DOVER ([id number]) on 09/01/2024 5:35:45 AM Referred By: Confirmed By: TAI HEARN MD
[2024-08-30 06:06] LABS: Absolute Lymphocyte Count 0.71 X10^3/uL (0.83-4.51); Absolute Neutrophil Count 7.4 X10^3/uL (2.0-7.7); Basophil# 0.02 X10^3/uL; Basophil% 0.2 % (0-1); Hematocrit 34.4 % (40-54); Hemoglobin 11.6 g/dL (13.0-16.5); Lymphocyte # 0.71 X10^3/ul (0.83-4.51); Lymphocyte % 7.9 % (19-41); Mean Corp Hgb Conc 33.7 g/dL (32-36); Mean Corpuscular Hgb 28.1 pg (27.0-32.0); Mean Corpuscular Volume 83.3 fL (80-94); Mean Platelet Vol. 8.8 fl (6.2-12.0); Monocyte# 0.88 X10^3/uL; Monocyte% 9.8 % (0-10); NRBC Flagged by Analyzer 0 % (0-5); Neutrophil # 7.35 X10^3/uL (2.7-7.7); Neutrophil % 81.8 % (47-70); Platelet Count 257 K/mm3 (150-450); RBC Distribution Width CV 15.5 % (11.6-14.6); RBC Distribution Width SD 46.5 fl (35.1-43.9); Red Blood Count 4.13 M/mm3 (4.6-6.2)
[2024-08-30 06:11] LABS: Partial Thromboplast Time 33.4 Seconds (24.1-36.2)
[2024-08-30 06:56] LABS: ALB/GLOB Ratio 1.3 RATIO (0.9-2.4); AST(SGOT) 19 U/L (<=37); Alanine Aminotransfer ALT/SGPT 14 U/L (<=46); Albumin, Serum 3.8 g/dL (3.4-4.8); Alkaline Phosphatase 127 U/L (40-129); Anion Gap 14 (5-15); BUN 9 mg/dL (4-19); BUN/Creat Ratio 15.2 RATIO (10-20); Bilirubin, Direct 0.31 mg/dL (0.00-0.30); Calcium,Total 8.7 mg/dL (7.6-11.0); Carbon Dioxide 17.3 mmol/L (21.0-32.0); Chloride 96 mmol/L (98-108); Cholesterol 131 mg/dL (<=200); EST Glomerular Filtration Rate 95 (>60); Globulin 2.9 g/dL (2.2-4.2); Glucose 138 mg/dL (70-99); High Density Lipoprotein 69 mg/dL; Low Density Lipoprotein Calc. 54 mg/dL; Phosphorus 2.9 mg/dL (2.7-4.5); Potassium 3.9 mmol/L (3.3-5.1); Protein, Total 6.6 g/dL (5.9-8.4); Sodium Level 128 mmol/L (133-145); Total Bilirubin 0.62 mg/dL (0.00-1.30); Triglycerides 39 mg/dL; Very Low Density Lipoprotein 8 mg/dL (5-40)
[2024-08-30] MEDS: Albuterol 2.5 MG/3 ML VIAL.NEB. INHALATION ×3 (06:59→19:05)
[2024-08-30] MEDS: Budesonide Respules 0.5 MG/2 ML AMPUL.NEB. INHALATION ×2 (06:59→19:05)
--- NOTE | 2024-08-30 07:20 | FEM_PTH ---
PATIENT: CHITO CORDON LOC: [facility] U#:[id number] AGE/SX: 84/M [place] [facility] [place]: Dr. Dio Barajas DO : 1940 BED: 1 DIS: 09/03/2024 SPEC #: [id number] RECD: 08/31/24 10:20 STATUS: AMY REBEKAH #: [id number] BUSTER: 08/30/24 07:[address]: Haresh Vázquez DEPT: SURGICAL PATHOLOGY RECD BY: Murali Herrera ENTERED: 08/31/24 11:06 SP TYPE: FEM HEAD OTHR DR: DO Dr. Roberto Diaz MD Dr. Nana Yaa Koram, MD Tissues: Femoral region, NOS Procedures: Decalcification bone/plaque Surgery Specimen Level IV HEADER OPERATION: Hemiarthroplasty, hip PRE-OP DIAGNOSIS: Closed fracture of left hip TISSUE SUBMITTED: A- Femoral head MICROSCOPIC DIAGNOSIS A. Femoral head, hemiarthroplasty: * Articular bone with reactive/degenerative change. * Predominantly fatty marrow with focal trilineage hematopoiesis. MICROSCOPIC DESCRIPTION Slides are reviewed. GROSS DESCRIPTION A. Received in fixative is one container labeled with the patient's name and designated Femoral head. The specimen consists of one femoral head measuring 5 x 5 x 4cm. The cut surfaces show extremely roughened and hemorrhagic bone. The cartilaginous surface is eburnated and has worn away completely in part. [employer] sections submitted in two cassettes after decalcification. 08/31/2024 CPT:62099,81280
--- NOTE | 2024-08-30 08:36 | CON.PCM.OR_ITS ---
HPI Consult Data Date of Consult: 08/30/24 HPI Narrative HPI Narrative: CHITO CORDON, is a 84 M who presents with a left displaced femoral neck fracture. The patient fell at a restaurant yesterday was brought in with inability to ambulate. Been cleared by hospitalist overnight. The team aware. I fixed his other side is doing well from that standpoint using cane. FORMERLY [facility] Medical History Preoperative cardiovascular examination Displaced fracture of right femoral neck Macular degeneration Wears dentures Easy bruising History of ulceration Smoker Hoarseness History of echocardiogram History of stress test Right inguinal hernia COPD (chronic obstructive pulmonary disease) Chronic cough BPH (benign prostatic hyperplasia) COVID-19 vaccine series completed Alcohol abuse Syncope Cellulitis of scrotum Scrotal abscess Fecal urgency Spinal stenosis of lumbar region with neurogenic claudication Ischemic cardiomyopathy Iliac artery aneurysm, right Abdominal aortic aneurysm (AAA) Atherosclerotic heart disease of [place] coronary artery without angina pectoris Nicotine dependence Essential (primary) hypertension Gastric ulcer Chronic back pain History of RSV infection Vision problem GERD (gastroesophageal reflux disease) Cataract Bone fracture Back problem Seasonal allergies Home Medications ?Medication ?Instructions ?Recorded ?Last Taken ?Type Handicap Placard #1 ea 12/29/21 Unknown Rx albuterol sulfate 2.5 mg/3 mL 2.5 mg (3 mL) inhalation Q6H PRN 12/12/22 Unknown Rx (0.083 %) solution for nebulization shortness of breat h or wheezing #0 mL atorvastatin 20 mg tablet 20 mg PO QHS Cholesterol #0 tabs 12/12/22 Unknown Rx carvedilol 3.125 mg tablet 3.125 mg PO DAILY HEART #90 tabs 01/14/24 Unknown Rx omeprazole 40 mg capsule,delayed 40 mg PO DAILY #90 ca ps 02/28/24 Unknown Rx release losartan 50 mg tablet 50 mg PO DAILY BLOOD PRRESSU RE #90 04/30/24 Unknown Rx tabs budesonide-formoterol HFA 160 2 puff inhalation BID #1 0.2 grams 06/08/24 Unknown Rx mcg-4.5 mcg/actuation aerosol inhaler (Symbicort) tamsulosin 0.4 mg capsule See Rx Instructions .Route 0 08/17/24 Unknown Rx .COMPLEX #180 CAPSULES guaifenesin 1,200 mg tablet, 1,200 mg PO BID #120 tabs 08/28/24 Unknown Rx extended release 12 hr (Mucinex) Allergy/AdvReac Type Severity Reaction Status Date / Time No Known Allergies Allergy Verified 08/29/24 19:12 Family History Grandfather Cancer Father Brain aneurysm Daughter Hypertension Surgical History History of right hip hemiarthroplasty History of right inguinal hernia repair History of esophagogastroduodenoscopy (EGD) History of colonoscopy History of back surgery History of left heart catheterization (11/11/13) History of endovascular stent graft for abdominal aortic aneurysm (AAA) (12/11/13) Rupture of biceps tendon Social History household members: spouse housing: house Smoking Status: Current every day smoker tobacco type: cigarettes Tobacco: How many years used: 62 alcohol intake: current alcohol intake frequency: 3 or more drinks per day Alcohol type: beer substance use type: does not use what type of physical activity do you participate in: none Vital Signs Vital Signs Vital Signs: 08/29/24 19:11 08/29/24 20:50 08/29/24 21:50 Temperature 96.9 F L 96.9 F L 98 F Temperature Source Temporal Oral Pulse Rate 84 84 108 H Respiratory Rate 18 18 18 Respiratory Effort Respiratory Depth Respiratory Pattern Blood Pressure 146/92 H 146/92 H 176/102 H Blood Pressure Mean 110 110 126 Blood Pressure Source Monitor Blood Pressure Position Semi-Fowlers Blood Pressure Location Left Arm Pulse Ox 92 92 94 Oxygen Delivery Method Nasal Cannula Oxygen Flow Rate (L/min) 2 08/29/24 23:12 08/30/24 00:40 08/30/24 00:48 Temperature 98 F Temperature Source Oral Pulse Rate 111 H 109 H Respiratory Rate 16 Respiratory Effort Normal Non-Labored Respiratory Depth Normal Respiratory Pattern Normal Blood Pressure 181/112 H Blood Pressure Mean 135 Blood Pressure Source Monitor Blood Pressure Position Semi-Fowlers Blood Pressure Location Right Arm Pulse Ox 93 Oxygen Delivery Method Nasal Cannula Nasal Cannula Oxygen Flow Rate (L/min) 2 2 08/30/24 01:22 08/30/24 04:33 08/30/24 05:34 Temperature 98.7 F Temperature Source Oral Pulse Rate 104 H 90 Respiratory Rate 16 Respiratory Effort Respiratory Depth Respiratory Pattern Blood Pressure 139/88 H Blood Pressure Mean 105 Blood Pressure Source Monitor Blood Pressure Position Semi-Fowlers Blood Pressure Location Right Arm Pulse Ox 94 94 Oxygen Delivery Method Nasal Cannula Nasal Cannula Oxygen Flow Rate (L/min) 2 2 08/30/24 05:56 08/30/24 06:59 08/30/24 06:59 Temperature 98.2 F Temperature Source Oral Pulse Rate 101 H 89 Respiratory Rate 16 14 Respiratory Effort Respiratory Depth Respiratory Pattern Blood Pressure 148/88 H Blood Pressure Mean 108 Blood Pressure Source Monitor Blood Pressure Position Semi-Fowlers Blood Pressure Location Right Arm Pulse Ox 94 90 Oxygen Delivery Method Nasal Cannula Nasal Cannula Oxygen Flow Rate (L/min) 2 2 08/30/24 07:51 08/30/24 07:53 Temperature 98.5 F Temperature Source Oral Pulse Rate 102 H Respiratory Rate 20 H Respiratory Effort Normal Non-Labored Respiratory Depth Normal Respiratory Pattern Tachypnea Blood Pressure 126/79 H Blood Pressure Mean 94 Blood Pressure Source Monitor Blood Pressure Position Semi-Fowlers Blood Pressure Location Left Arm Pulse Ox 94 Oxygen Delivery Method Nasal Cannula Nasal Cannula Oxygen Flow Rate (L/min) 2 2 Weight Weight: 150 lb Body Mass Index (BMI) 23.5 Physical Exam Const alert, oriented x3, no apparent distress and well nourished General Appearance: cooperative Extremity normal capillary refill Extremity Narrative: Closed injury externally rotated and shortened of the left thigh. Thigh is soft neurovascularly intact distally normal sensation throughout the foot wiggles the toes dorsiflex plantarflex foot foot is warm and well-perfused. Lab / Micro Data 08/30/24 05:39 08/30/24 05:39 Labs: Laboratory Results - last 24 hr 08/29/24 19:08: PT 13.3, INR 1.0 08/29/24 19:58: WBC 11.0, RBC 4.17 L, Hgb 11.7 L, Hct 34.4 L, MCV 82.5, MCH 28.1, MCHC 34.0, RDW Std Deviation 46.5 H, RDW Coeff of Tea 15.4 H, Plt Count 266, MPV 8.5, Immature Gran % (Auto) 0.900, Neut % (Auto) 80.6 H, Lymph % (Auto) 9.6 L, [place] % (Auto) 7.9, Eos % (Auto) 0.5, Baso % (Auto) 0.5, Absolute Neuts (auto) 8.9 H, Absolute Lymphs (auto) 1.06, Nucleated RBC % 0, Sodium 127 L, Potassium 3.9, Chloride 93 L, Carbon Dioxide 19.0 L, Anion Gap 15, BUN 11, Creatinine 0.74, Estim Creat Clear Calc 64.26, Est GFR (MDRD) Non-Af 89, BUN/Creatinine Ratio 14.9, Glucose 174 H, Hemoglobin A1c 6.1, Calcium 9.2, Magnesium 1.6, Troponin T High Sens 13, Vitamin B12 544, TSH 2.610 08/29/24 22:39: Serum Osmolality 274 L, Troponin T Hi Sens 2 Hr 15, Serum Folate 17.20, Blood Type A NEGATIVE, Antibody Screen NEGATIVE 08/30/24 01:30: Urine Osmolality 615, Urine Opiates Screen PRESUMPTIVE POSITIVE, U Buprenorphine Qual NEGATIVE, Ur Oxycodone Screen NEGATIVE, Urine Methadone Screen NEGATIVE, Urine Fentanyl Screen NEGATIVE, Ur Barbiturates Screen NEGATIVE, Ur Phencyclidine Scrn NEGATIVE, Ur Amphetamines Screen NEGATIVE, U Benzodiazepines Scrn NEGATIVE, Urine Cocaine Screen NEGATIVE, U Cannabinoids Screen NEGATIVE 08/30/24 05:39: WBC 9.0, RBC 4.13 L, Hgb 11.6 L, Hct 34.4 L, MCV 83.3, MCH 28.1, MCHC 33.7, RDW Std Deviation 46.5 H, RDW Coeff of Tea 15.5 H, Plt Count 257, MPV 8.8, Immature Gran % (Auto) 0.300, Neut % (Auto) 81.8 H, Lymph % (Auto) 7.9 L, [place] % (Auto) 9.8, Eos % (Auto) 0.0, Baso % (Auto) 0.2, Absolute Neuts (auto) 7.4, Absolute Lymphs (auto) 0.71 L, Nucleated RBC % 0, APTT 33.4, Sodium 128 L, Potassium 3.9, Chloride 96 L, Carbon Dioxide 17.3 L, Anion Gap 14, BUN 9, C reatinine 0.60 L, Estim Creat Clear Calc 63.00, Est GFR (MDRD) Non-Af 95, BUN/Creatinine Ratio 15.2, Glucose 138 H, Calcium 8.7, Phosphorus 2.9, Total Bilirubin 0.62, Direct Bilirubin 0.31 H, AST 19, ALT 14, Alkaline Phosphatase 127, Total Protein 6.6, Albumin 3.8, Globulin 2.9, Albumin/Globulin Ratio 1.3, Triglycerides 39, Cholesterol 131, LDL Cholesterol, Calc 54, VLDL Cholesterol 8, HDL Cholesterol 69, Cholesterol/HDL Ratio 1.90 Imaging Radiology Impression Brain CT 08/29/24 19:23 IMPRESSION: 1. Chronic age-related microvascular ischemic changes. 2. Lacunar infarct involving the anterior limb, right internal capsule. 3. Age-appropriate senescent change. 4. No acute intracranial findings. 5. Severe atherosclerotic calcific disease. Reading Location: [facility] Hip/Pelvis X-Ray 08/29/24 19:35 IMPRESSION: Acute subcapital fracture of the left hip with varus deformity. Right hip hemiarthroplasty. Other nonacute findings detailed above. Reading Location: [facility] I independently reviewed the imaging. Concur with radiologist report. Assessment & Plan Assessment/Plan (1) Closed fracture of left hip: QUALIFIERS: Encounter type: initial encounter Qualified Code(s): S72.002A - Fracture of unspecified part of neck of left femur, initial encounter for closed fracture PLAN: 84-year-old man with a left displaced femoral neck fracture. Recommend surgery for this although nonoperative treatment is an option this is typically high risk. Patient wished to proceed with surgery. Specific risks include fracture instability dislocation where VTE and other risks. The patient understands wishes to proceed he is n.p.o. we will try to get this case done this morning the team already aware including anesthesia the surgical rep and the on-call team. My typical treatment for this would be a left hip cemented hemiarthroplasty. Low risk of instability or dislocation as well as good long- term outcomes with cemented stem. Left hip marked the patient understands signed the consent form for surgery no further questions or concerns. Pros and cons risks and benefits were discussed with the patient including but not limited to infection, pain, stiffness, bleeding, damage to surrounding structures, neurovascular injury, recurrence or retear, failure or wear of hardware or fixation, instability, fracture, deep vein thrombosis and pulmonary embolism, anesthetic risks, , patient dissatisfaction, need for further surgery and other risks. Patient understood and wished to proceed with surgery, and signed the informed consent documentation.
--- NOTE | 2024-08-30 08:48 | PRE.ANES_ITS ---
ASA Classification* ASA Classification ASA Classification: 3 and E Assessment & Plan Anesthesia* Anesthesia Assessment Anesthesia Assessment: Discussed sedation and/or anesthesia options, risks, benefits, and alternatives with patient/parents/legal guardian/POA. Questions invited. The patient/parents/legal guardian/POA seems to understand and agrees to proceed with anesthesia plan. Reviewed the physical assessment, medical history, allergy history and patient home medications list prior to surgery/procedure/anesthetic and documented any changes. Performed airway and anesthesia risk assessments. Anesthesia Type Anesthesia Type: General (GA with ETT) History Source History Obtained from:: Patient and Chart Anesthesia Focused Assessment* Temperature: 98.5 F Pulse Rate: 102 Blood Pressure: 126/79 Respiratory Rate: 20 Pulse Ox: 90 Oxygen Delivery Method: Nasal Cannula Oxygen Flow Rate (L/min): 2 Airway Assessment Mouth opens: >3 cm Mallampati Score: II Teeth Condition: Dentures and Upper Neck Range of motion (ROM): Full ROM Focused Labs Anesthesia Preop lab: CBC WBC 9.0 K/mm3 (4.4-11.0) 08/30/24 05:39 08/30/24 RBC 4.13 M/mm3 (4.6-6.2) L 08/30/24 05:39 08/30/24 Hgb 11.6 g/dL (13.0-16.5) L 08/30/24 05:39 5 Hct 34.4 % (40-54) L 08/30/24 05:39 08/30/24 Plt Count 257 K/mm3 (150-450) 08/30/24 05:39 08/30/24 CHEMISTRY Potassium 3.9 mmol/L (3.3-5.1) 08/30/24 05:39 08/30/24 Sodium 128 mmol/L (133-145) L 08/30/24 05:39 08/30/24 Magnesium 1.6 mg/dL (1.5-2.2) 08/29/24 19:58 08/29/24 Phosphorus 2.9 mg/dL (2.7-4.5) 08/30/24 05:39 08/30/24 BUN 9 mg/dL (4-19) 08/30/24 05:39 08/30/24 Creatinine 0.60 mg/dL (0.70-1.20) L 08/30/24 05:39 Glucose 138 mg/dL (70-99) H 08/30/24 05:39 08/30/24 POC Glucose 99 mg/dL (70-110) 10/06/20 06:06 10/06/20 TSH 2.610 uIU/mL (0.300-4.200) 08/29/24 19:58 08/15 11/08 COAG PT 13.3 SECONDS (11.7-14.9) 08/29/24 19:08 Pre-Assessment Diagnosis/Proposed Procedure Planned Operative Procedure(s): Left Hip Hemiarthroplasty Anesthesia History 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 When Was Last Pacemaker Check QUESTION #4 FULL TEXT: You/Your Family Experience fever (hyperthermia) with Anesthesia Last Oral Intake Last Oral intake: Last Oral Intake NPO since 00:00 08/30/24 08:08 Meds taken in AM with sips of Yes 08/30/24 08:08 water? Meds patient instructed to SEE 08/30/24 08:08 take am of surgery PONV PONV - film flat inspector: PONV - film flat inspector Female HX of Motion Sickness HX of N/V After Surgery Non-Smoker Duration of Surgery greater than 60 minutes Number of Risk Factors PONV Score Height & Weight Height & Weight: Anesthesia: Height & Weight Height 5 ft 7 in 08/30/24 08:08 Weight: 68.039 kg 08/30/24 08:08 Body Mass Index (BMI) 23.5 08/30/24 08:08 Respiratory Assessment Respiratory Assessment - film flat inspector: Respiratory Tract Infection Hx - film flat inspector Hx Respiratory Tract Infection No 08/29/24 22:12 STOP Sleep Apnea STOP Sleep Apnea - film flat inspector: STOP Sleep Apnea - film flat inspector Hx Hypertension No 08/29/24 22:01 Hx Sleep Apnea No 08/29/24 22:01 CPAP No 08/29/24 22:01 BIPAP Do you snore loudly (louder No 08/29/24 22:01 than talking or can be heard Do you often feel tired/ No 08/29/24 22:01 fatigued/ sleepy during daytime? Has anyone observed you stop No 08/29/24 22:01 breathing during sleep? STOP Results Negative 08/29/24 22:01 QUESTION #5 FULL TEXT : Do you snore loudly (louder than talking or can be heard through closed doors)? 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 Specify any problems Hx of Preganancy in last 3 N/A 08/29/24 22:01 Months Nurse Filling Out Transfusion TMELLOR 08/29/24 22:01 & Questions: Date: 08/29/24 08/29/24 22:01 Time: 22:04 08/29/24 22:01 Patient unable to answer at this time (ie. confused, unrespo /Reproduction History /Reproductive History - film flat inspector: /Reproductive Hx- film flat inspector Hx Now Gestational Age (in weeks): EDC: Hx Hx Para Hx Section SAB No 02/25/23 15:10 Active Medications Active Medications: Current Medications Generic Name Dose Route Start Last Admin Trade Name Freq PRN Reason Stop Dose Admin Acetaminophen 650 mg 08/29/24 22:00 08/29/24 22:38 Acetaminophen 325 Mg Tablet PO 650 mg Q6H PRN PRN Administration Pain 1-5/10 or Fever Al Hydroxide/Mg Hydroxide 30 ml 08/29/24 22:00 Mag Hydrox/Al Hydrox/Simeth 30 Ml Udc PO Q6H PRN PRN Gastric Burning Albuterol Sulfate 2.5 mg 08/29/24 22:00 Albuterol 2.5 Mg/3 Ml Vial.Neb. INHALATION Q6H PRN PRN shortness of breath/wheezing Albuterol Sulfate 2.5 mg 08/30/24 00:00 08/30/24 06:59 Albuterol 2.5 Mg/3 Ml Vial.Neb. INHALATION 2.5 mg Q6HWA.RT VIDHYA Administration Atorvastatin Calcium 20 mg 08/29/24 22:00 08/29/24 22:40 Atorvastatin Calcium 20 Mg Tablet PO 20 mg QHS VIDHYA Administration Budesonide 0.5 mg 08/30/24 06:00 08/30/24 06:59 Budesonide Respules 0.5 Mg/2 Ml Ampul.Neb. INHALATION 0.5 mg Q12H.RT VIDHYA Administration Carvedilol 3.125 mg 08/30/24 08:00 Carvedilol 3.125 Mg Tablet PO DAILYCM VIDHYA Dicyclomine HCl 20 mg 08/29/24 22:00 Dicyclomine 10 Mg Capsule PO Q6H PRN PRN abdominal discomfort Folic Acid 1 mg 08/30/24 08:00 Folic Acid 1 Mg Tablet PO DAILY@0800 VIDHYA Gabapentin 300 mg 08/29/24 22:00 08/29/24 22:38 Gabapentin 300 Mg Capsule PO 300 mg Q8H PRN PRN Administration moderate to severe anxiety Guaifenesin 1,200 mg 08/29/24 22:00 08/29/24 22:38 Guaifenesin 1,200 Mg Tablet PO 1,200 mg BID VIDHYA Administration Hydralazine HCl 5 mg 08/29/24 22:00 Hydralazine 20 Mg/Ml Vial IV Q8H PRN PRN SBP GREATER THAN 160 Protocol Hydroxyzine Pamoate 50 mg 08/29/24 22:00 Hydroxyzine [place] 25 Mg Capsule PO Q4H PRN PRN mild anxiety Sodium Chloride 1,000 mls @ 70 mls/hr 08/29/24 21:07 08/29/24 22:37 IV 08/30/24 11:24 70 mls/hr .[id number] VIDHYA Administration Sodium Chloride 100 mls @ 15 mls/hr 08/29/24 22:07 IV .Q6H40M PRN Saline Flush Loperamide HCl 2 mg 08/29/24 22:00 Loperamide 2 Mg Capsule PO Q4H PRN PRN LS Losartan Potassium 50 mg 08/30/24 10:00 Losartan Potassium 50 Mg Tablet PO DAILY [facility] Protocol Magnesium Hydroxide 30 ml 08/29/24 22:00 Magnesium Hydroxide 30 Ml Udc PO DAILY PRN PRN Constipation Morphine Sulfate 2 mg 08/29/24 22:00 08/30/24 00:36 Morphine 2 Mg/Ml Syringe IV 2 mg Q4H PRN PRN Administration Pain Score 6-10 Nicotine 14 mg 08/29/24 21:10 08/29/24 22:57 Nicotine 14 Mg Patch TD Not Given DAILY VIDHYA Ondansetron HCl 4 mg 08/29/24 22:00 Ondansetron 4 Mg/2 Ml Vial IV Q8H PRN PRN NAUSEA/VOMITING Pantoprazole Sodium 40 mg 08/30/24 10:00 Pantoprazole Sodium 40 Mg Tablet PO DAILY VIDHYA Phenobarbital 97.2 mg 08/29/24 21:30 08/30/24 05:50 Phenobarbital 32.4 Mg Tablet PO 09/03/24 05:29 97.2 mg Q4H VIDHYA Administration Taper Promethazine HCl 25 mg 08/29/24 22:00 Promethazine 25 Mg/Ml Syringe IM Q6H PRN PRN Breakthrough nausea/vomiting Sodium Chloride 10 - 40 ml 08/29/24 22:07 08/29/24 22:43 0.9% Saline Lock 10 Ml Syringe IV 10 ml UD PRN Administration SALINE FLUSH Tamsulosin HCl 0.8 mg 08/29/24 22:00 08/29/24 22:38 Tamsulosin Hcl 0.4 Mg Capsule PO 0.8 mg QHS VIDHYA Administration Thiamine HCl 100 mg 08/30/24 08:00 Thiamine Hydrochloride 100 Mg Tablet PO DAILYCM VIDHYA Trazodone HCl 100 mg 08/29/24 22:00 Trazodone 100 Mg Tablet PO QHS PRN INSOMNIA PFSH Medical History Preoperative cardiovascular examination Displaced fracture of right femoral neck Macular degeneration Wears dentures Easy bruising History of ulceration Smoker Hoarseness History of echocardiogram History of stress test Right inguinal hernia COPD (chronic obstructive pulmonary disease) Chronic cough BPH (benign prostatic hyperplasia) COVID-19 vaccine series completed Alcohol abuse Syncope Cellulitis of scrotum Scrotal abscess Fecal urgency Spinal stenosis of lumbar region with neurogenic claudication Ischemic cardiomyopathy Iliac artery aneurysm, right Abdominal aortic aneurysm (AAA) Atherosclerotic heart disease of [place] coronary artery without angina pectoris Nicotine dependence Essential (primary) hypertension Gastric ulcer Chronic back pain History of RSV infection Vision problem GERD (gastroesophageal reflux disease) Cataract Bone fracture Back problem Seasonal allergies Home Medications ?Medication ?Instructions ?Recorded ?Last Taken ?Type Handicap Placard #1 ea 12/29/21 Unknown Rx albuterol sulfate 2.5 mg/3 mL 2.5 mg (3 mL) inhalation Q6H PRN 12/12/22 Unknown Rx (0.083 %) solution for nebulization shortness of breat h or wheezing #0 mL atorvastatin 20 mg tablet 20 mg PO QHS Cholesterol #0 tabs 12/12/22 Unknown Rx carvedilol 3.125 mg tablet 3.125 mg PO DAILY HEART #90 tabs 01/14/24 Unknown Rx omeprazole 40 mg capsule,delayed 40 mg PO DAILY #90 ca ps 02/28/24 Unknown Rx release losartan 50 mg tablet 50 mg PO DAILY BLOOD PRRESSU RE #90 04/30/24 Unknown Rx tabs budesonide-formoterol HFA 160 2 puff inhalation BID #1 0.2 grams 06/08/24 Unknown Rx mcg-4.5 mcg/actuation aerosol inhaler (Symbicort) tamsulosin 0.4 mg capsule See Rx Instructions .Route 0 08/17/24 Unknown Rx .COMPLEX #180 CAPSULES guaifenesin 1,200 mg tablet, 1,200 mg PO BID #120 tabs 08/28/24 Unknown Rx extended release 12 hr (Mucinex) Allergy/AdvReac Type Severity Reaction Status Date / Time No Known Allergies Allergy Verified 08/29/24 19:12 Family History Grandfather Cancer Father Brain aneurysm Daughter Hypertension Surgical History History of right hip hemiarthroplasty History of right inguinal hernia repair History of esophagogastroduodenoscopy (EGD) History of colonoscopy History of back surgery History of left heart catheterization (11/11/13) History of endovascular stent graft for abdominal aortic aneurysm (AAA) (12/11/13) Rupture of biceps tendon Social History household members: spouse housing: house Smoking Status: Current every day smoker tobacco type: cigarettes Tobacco: How many years used: 62 alcohol intake: current alcohol intake frequency: 3 or more drinks per day Alcohol type: beer substance use type: does not use what type of physical activity do you participate in: none Review of Systems (Anesthesia) ROS Narrative System reviewed and no additional complaints, except as documented. Physical Exam Const alert and oriented x3 HEENT Teeth and [place]: dentures Neck full ROM Resp normal respiratory effort and clear to auscultation bilaterally Cardio regular rate Extremity Extremity Narrative: pain with movement of left hip Neuro oriented x3
[2024-08-30] MEDS: Cefazolin 2 GM in Syringe IV ×2 (09:49→17:48)
[2024-08-30] MEDS: TRANEXAMIC ACID 1,000 MG in 0.9% Normal Saline (100mL Bag) 100 ML 440 MG IV ×2 (09:52→10:37)
[2024-08-30] MEDS: Bupivacaine 0.25% 30 ML Vial (10:36)
--- NOTE | 2024-08-30 10:53 | PCM.OPRPT ---
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: Yes Landing Man: mirella Tasks completed by certified anesthesiologist assistant: Retracting Additional nutrition services assistant?: No Type of Anesthesia: General and Local RN Documented Start/Stop Times: Operation Date: 08/30/24 07:20 Case Time Anesthesia Start 08/30/24 09:20 Into Room 08/30/24 09:20 Procedure Start 08/30/24 09:55 Procedure Start Time: 09:55 Procedure Stop Time: 10:54 Select all DRAINS/GRAFTS/IMPLANTS that apply: Prosthetic device Prosthetic device details: colleen accolade size 5, cement, -3mm, 50mm bipolar head Estimated Blood Loss: 50 Specimen collected: Yes Description of specimen(s) removed: femoral head Description of surgery: Patient brought to the operating room theater.? Placed supine on the table.? General anesthesia induced.? 2 g IV Ancef administered prior to the start of the procedure.?1g IV TXA at start and end of procedure. Patient transferred left side up lateral decubitus with the aid of the positioner pegboard.? All bony prominences padded axillary roll placed.? SCD on the nonoperative leg.? Leg prepped and draped in the usual sterile fashion with chlorhexidine-based prep solution allowing over 3 minutes drying time prior to draping.? Preoperative timeout performed to confirm the site patient and the surgery. Began by making a standard lateral incision at the proximal femur.? Carried dissection down through skin and subcutaneous tissue to meticulous hemostasis.? Incised the tensor fascia apple in line with skin incision.? Remove the greater trochanteric bursa.? Sharply released the anterior one third of the abductors off the greater trochanter.? Carried dissection down through down to the hip capsule.? Made a T-shaped capsulotomy.? Tagged each limb.? Made the neck cut about 1cm above the level of the lesser trochanter.? Removed the head using the corkscrew device.? Sized the head to 50mm. Use lateralized sweat box attendant osteotome followed by the canal finder and a reamer up to a size 5 to plan for [place] Accolade cemented Raul hip.? Trial reduction was appropriate stable in flexion internal rotation and external rotation with extension.? No impingement moved stable through range of motion with normal leg lengths equal on both sides.? The trial components were removed canal prepped using pulse lavage.? Cement restrictor was placed.? Measured for the distal centralizer 12mm? Chose a [place] Accolade size 5 standard offset -3mm head with 50 mm bipolar head.? Used third-generation cement mixing techniques.? Pressurized the cement in the canal patient stable through pressurization.? Then I inserted the stem in appropriate version and allowed the cement to fully harden and remove any excess cement.? Trunnion was fully cleaned followed by impaction of the bipolar head.? Patient stable through cementing. Reduction was then performed this was again trialed and felt to be stable.? Irrisept was used to thoroughly irrigate the joint and wound.? The capsule was closed with #1 Vicryl the abductors were then repaired to the greater trochanter with FiberWire suture.? I then closed the tensor fascia apple with a running strata fix #1 suture.? Subcutaneous tissue closed with running 2-0 Vicryl sutures and skin with 3-0 Monocryl. 20 cc quarter percent bupivacaine instilled in and around the incision site.? Skin cleaned with wet and dry dressing followed application of Steri-Strips and silver Mepilex.? Patient woken up from the general anesthetic transferred off the operating table and taken to postanesthetic care unit in stable addition.? All sponge needle instrument counts were correct no complications.? Plan for the patient xarelto pod 1 for VTE and xray in PACU. FU in office 2 weeks. PT. OT. SW. OK to change dressing every 2-3 days. Re-admit under medicine. RENNY. cpt [id number] Surgical Findings: as above Complications Complications: No Admit VTE Documentation VTE Present on Admission: No VTE Mechan Device Prophylaxis: SCD's VTE Pharm Prophylaxis ordered?: Yes
--- NOTE | 2024-08-30 11:00 | RAD_ITS ---
PROCEDURE: Pelvis radiograph REASON FOR EXAM: Postop TECHNIQUE: Frontal view of the pelvis COMPARISON: August 29, 2024 FINDINGS: See impression RAD/Hip Min 2 Views (Portable) IMPRESSION: Expected postop change from left hip prosthesis placement. Alignment is anatom ic. Negative for fracture. Reading Location: [facility]
--- NOTE | 2024-08-30 11:25 | PCM.POST.ANE ---
Anesthesia: Postop Eval I Current Vital Signs Temperature: 97.8 F Pulse Rate: 78 Blood Pressure: 106/64 Respiratory Rate: 16 Pulse Ox: 96 Oxygen Delivery Method: Simple Mask Oxygen Flow Rate (L/min): 4 Assessment Airway patent: Yes Spontaneous unlabored respirations: Yes Mental status: Calm and Asleep nausea: No Vomiting: No Anesthesia Complication: No Fluid Hydration Crystalloid volume administer (ml): 700 Total IV fluid infused: 700 Progress Note Anesthesia document: Postop Eval 1 completed: Yes
--- NOTE | 2024-08-30 11:35 | PCM.POSTANE2 ---
Anesthesia Postop Eval I Sum Postop Eval Completion status Anesthesia document: Postop Eval 1 completed: Yes Anesthesia Postop Eval I Summary Anesthesia Postop Eval I Summary: Anesthesia Postop Eval I: Assessment Summary Airway patent Yes 08/30/24 11:26 Spontaneous unlabored Yes 08/30/24 11:26 respirations Mental status Calm,Asleep 08/30/24 11:26 nausea No 08/30/24 11:26 Vomiting No 08/30/24 11:26 Anesthesia Postop Eval I: Fluid Summary Crystalloid volume administer 700 08/30/24 11:26 (ml) Colloids volume administered ( ml) Blood Product volume administered (ml) Total IV fluid infused 700 08/30/24 11:26 Anesthesia Postop Eval I: Summary Notes Anesthesia Complication No 08/30/24 11:26 Anesthesia Complication Comment: Post-operative progress note Anesthesia: Postop Eval II Evaluation Mental status: Awake and Calm Pain Level: 4 nausea: No Vomiting: No Complications Anesthesia Complication: No
[2024-08-30] MEDS: Ipratropium/Albuterol Sulfate 3 ML AMPUL.NEB INHALATION (11:41)
--- NOTE | 2024-08-30 13:12 | PCM.PROGNOTE ---
Subjective Subjective Patient seen and examined. He had just been brought back from surgery. He was quite lethargic likely because anesthesia had not worn off. was by his bedside. Unable to do review of systems as patient is lethargic. Objective Data Objective Data Vital Signs: Vital Signs Temp Pulse Resp BP Pulse Ox O2 Del Method O2 Flow Rate 98.3 F 84 17 125/74 H 95 Nasal Cannula 5 08/30/24 12:39 08/30/24 12:39 08/30/24 12:39 08/30/24 12:39 08/30/24 13:04 08/30/24 13:04 08/30/24 13:04 Oxygen Flow Rate (L/min) 5 Oxygen Delivery Method Nasal Cannula Weight: 150 lb Body Mass Index (BMI) 23.5 Intake & Output: Intake and Output for Last 24 Hours 08/28/24 08/29/24 08/30/24 23:59 23:59 23:59 Intake Total 540 / 540 Output Total 300 / 300 Balance 240 / 240 Lab / Micro Data 08/30/24 05:39 08/30/24 05:39 Labs: Laboratory Results - last 24 hr 08/29/24 19:08: PT 13.3, INR 1.0 08/29/24 19:58: WBC 11.0, RBC 4.17 L, Hgb 11.7 L, Hct 34.4 L, MCV 82.5, MCH 28.1, MCHC 34.0, RDW Std Deviation 46.5 H, RDW Coeff of Tea 15.4 H, Plt Count 266, MPV 8.5, Immature Gran % (Auto) 0.900, Neut % (Auto) 80.6 H, Lymph % (Auto) 9.6 L, [place] % (Auto) 7.9, Eos % (Auto) 0.5, Baso % (Auto) 0.5, Absolute Neuts (auto) 8.9 H, Absolute Lymphs (auto) 1.06, Nucleated RBC % 0, Sodium 127 L, Potassium 3.9, Chloride 93 L, Carbon Dioxide 19.0 L, Anion Gap 15, BUN 11, Creatinine 0.74, Estim Creat Clear Calc 64.26, Est GFR (MDRD) Non-Af 89, BUN/Creatinine Ratio 14.9, Glucose 174 H, Hemoglobin A1c 6.1, Calcium 9.2, Magnesium 1.6, Troponin T High Sens 13, Vitamin B12 544, TSH 2.610 08/29/24 22:39: Serum Osmolality 274 L, Troponin T Hi Sens 2 Hr 15, Serum Folate 17.20, Blood Type A NEGATIVE, Antibody Screen NEGATIVE 08/30/24 01:30: Urine Osmolality 615, Urine Opiates Screen PRESUMPTIVE POSITIVE, U Buprenorphine Qual NEGATIVE, Ur Oxycodone Screen NEGATIVE, Urine Methadone Screen NEGATIVE, Urine Fentanyl Screen NEGATIVE, Ur Barbiturates Screen NEGATIVE, Ur Phencyclidine Scrn NEGATIVE, Ur Amphetamines Screen NEGATIVE, U Benzodiazepines Scrn NEGATIVE, Urine Cocaine Screen NEGATIVE, U Cannabinoids Screen NEGATIVE 08/30/24 05:39: WBC 9.0, RBC 4.13 L, Hgb 11.6 L, Hct 34.4 L, MCV 83.3, MCH 28.1, MCHC 33.7, RDW Std Deviation 46.5 H, RDW Coeff of Tea 15.5 H, Plt Count 257, MPV 8.8, Immature Gran % (Auto) 0.300, Neut % (Auto) 81.8 H, Lymph % (Auto) 7.9 L, [place] % (Auto) 9.8, Eos % (Auto) 0.0, Baso % (Auto) 0.2, Absolute Neuts (auto) 7.4, Absolute Lymphs (auto) 0.71 L, Nucleated RBC % 0, APTT 33.4, Sodium 128 L, Potassium 3.9, Chloride 96 L, Carbon Dioxide 17.3 L, Anion Gap 14, BUN 9, Creatinine 0.60 L, Estim Creat Clear Calc 63.00, Est GFR (MDRD) Non-Af 95, BUN/Creatinine Ratio 15.2, Glucose 138 H, Calcium 8.7, Phosphorus 2.9, Total Bilirubin 0.62, Direct Bilirubin 0.31 H, AST 19, ALT 14, Alkaline Phosphatase 127, Total Protein 6.6, Albumin 3.8, Globulin 2.9, Albumin/Globulin Ratio 1.3, Triglycerides 39, Cholesterol 131, LDL Cholesterol, Calc 54, VLDL Cholesterol 8, HDL Cholesterol 69, Cholesterol/HDL Ratio 1.90 Radiography Diagnostic Testing: Radiology Impression Brain CT 08/29/24 19:23 IMPRESSION: 1. Chronic age-related microvascular ischemic changes. 2. Lacunar infarct involving the anterior limb, right internal capsule. 3. Age-appropriate senescent change. 4. No acute intracranial findings. 5. Severe atherosclerotic calcific disease. Reading Location: [facility] Hip/Pelvis X-Ray 08/29/24 19:35 IMPRESSION: Acute subcapital fracture of the left hip with varus deformity. Right hip hemiarthroplasty. Other nonacute findings detailed above. Reading Location: [facility] Hip X-Ray 08/30/24 11:00 IMPRESSION: Expected postop change from left hip prosthesis placement. Alignment is anatomic. Negative for fracture. Reading Location: [facility] Physical Exam Const Constitutional Narrative: patient lethargic Orientation / Consciousness: lethargic HEENT normocephalic, head/scalp atraumatic, moist oral mucous membranes and oropharynx normal Eyes PERRL and EOMs intact bilaterally Neck no lymphadenopathy and supple Lymph Lymphatic: no lymphadenopathy noted and no lymphedema noted Resp Resp Narrative: mildly diminished breath sounds bibasally, no wheezes or crackles. On 2L of oxygen by nasal canula. Cardio regular rate, regular rhythm, S1 normal heart sound, S2 normal heart sound and no murmurs GI normal to inspection, nondistended, normoactive bowel sounds, soft to palpation, non-tender and non-distended Extremity Extremity Narrative: intact dressing over surgical site on right hip. General Extremity: no tenderness to palpation of joints or extremities Skin General Skin Exam: no breakdown Neuro Neuro Narrative: drowsy, lethargic Motor Exam: general weakness Assessment & Plan Assessment/Plan (1) Closed fracture of left hip: QUALIFIERS: Encounter type: initial encounter Qualified Code(s): S72.002A - Fracture of unspecified part of neck of left femur, initial encounter for closed fracture PLAN: Plan #Acute left hip subcapital fracture due to mechanical falls s/p left hip hemiarthroplasty on PO tylenol, oxycodone and IV morphine prn for pain. incentive spirometry fall precautions #Hyponatremia: sodium is 128. Will monitor and hydrate gently with IVF. He does have chronic hyponatremia also. #Benign essential hypertension: on carvedilol and losartan. #Hyperlipidemia: on statin. #CAD: on statin. #History of abdominal aortic aneurysm s/p endovascular stent. #GERD: on PPI DVT prophylaxis: start on DVT prophylaxis when ok with orthopedics; per orthopedic surgical note, to start on xarelto on POD 1. Charges/Coding Visit Charges Inpatient E&M: 24417 Subs Hosp L2
[2024-08-30] MEDS: 0.9% Saline Lock 10 ML Syringe IV (17:48)
[2024-08-30] MEDS: 0.9% Normal Saline (100mL Bag) 100 ML 15 ML IV (17:48)
[2024-08-30] MEDS: Tamsulosin HCl 0.4 MG Capsule 0.8 MG PO (20:48)
[2024-08-30] MEDS: Atorvastatin Calcium 20 MG Tablet PO (20:49)
[2024-08-30] MEDS: guaiFENesin 1,200 MG Tablet 1200 MG PO (20:49)
[2024-08-31] VITALS (17 sets, daily range): BP systolic 103–147; BP diastolic 64–95; PULSE 85–115; RESP 15–22; TEMP 36.4–37.3; O2SAT 90–96; BMI 23.6
[2024-08-31] MEDS: Phenobarbital 32.4 MG Tablet PO ×6 (00:46→21:21)
[2024-08-31] MEDS: Cefazolin 2 GM in Syringe IV ×3 (00:59→17:17)
[2024-08-31] MEDS: 0.9% Saline Lock 10 ML Syringe IV ×2 (00:59→17:17)
[2024-08-31 07:28] LABS: Absolute Lymphocyte Count 0.71 X10^3/uL (0.83-4.51); Absolute Neutrophil Count 7.6 X10^3/uL (2.0-7.7); Basophil# 0.02 X10^3/uL; Basophil% 0.2 % (0-1); Hematocrit 32.9 % (40-54); Hemoglobin 11.2 g/dL (13.0-16.5); Lymphocyte # 0.71 X10^3/ul (0.83-4.51); Lymphocyte % 7.4 % (19-41); Mean Corpuscular Hgb 28.4 pg (27.0-32.0); Mean Corpuscular Volume 83.5 fL (80-94); Mean Platelet Vol. 9.2 fl (6.2-12.0); Monocyte# 1.22 X10^3/uL; Monocyte% 12.7 % (0-10); NRBC Flagged by Analyzer 0 % (0-5); Neutrophil # 7.59 X10^3/uL (2.7-7.7); Neutrophil % 79.4 % (47-70); Platelet Count 274 K/mm3 (150-450); RBC Distribution Width CV 15.8 % (11.6-14.6); RBC Distribution Width SD 47.9 fl (35.1-43.9); Red Blood Count 3.94 M/mm3 (4.6-6.2); White Blood Count 9.6 K/mm3 (4.4-11.0)
[2024-08-31] MEDS: Albuterol 2.5 MG/3 ML VIAL.NEB. INHALATION (07:35)
[2024-08-31] MEDS: Budesonide Respules 0.5 MG/2 ML AMPUL.NEB. INHALATION ×2 (07:35→19:46)
[2024-08-31] MEDS: Carvedilol 3.125 MG TABLET PO (09:38)
[2024-08-31] MEDS: Losartan Potassium 50 MG Tablet PO (09:39)
[2024-08-31] MEDS: Folic Acid 1 MG Tablet PO (09:39)
[2024-08-31] MEDS: guaiFENesin 1,200 MG Tablet 1200 MG PO ×2 (09:39→21:21)
[2024-08-31] MEDS: Thiamine Hydrochloride 100 MG Tablet PO (09:39)
[2024-08-31] MEDS: Pantoprazole Sodium 40 MG Tablet PO (09:40)
[2024-08-31] MEDS: Morphine 2 MG/ML Syringe IV (09:40)
--- NOTE | 2024-08-31 10:03 | PN_ITS ---
Subjective Subjective Patient seen and examined. He was lying comfortably in bed and had no active complaints. Pain is well-controlled. Review of symptoms otherwise negative. He has remained hemodynamically stable. He is on 4 L of oxygen. Per his nurse he was noted to have coughing whilst taking this medication. Speech therapy therefore been consulted. Objective Data Objective Data Vital Signs: Vital Signs Temp Pulse Resp BP Pulse Ox O2 Del Method O2 Flow Rate 98.2 F 85 16 147/95 H 94 Nasal Cannula 4 08/31/24 09:25 08/31/24 09:25 08/31/24 09:25 08/31/24 09:25 08/31/24 09:25 08/31/24 09:27 08/31/24 09:27 Oxygen Flow Rate (L/min) 4 Oxygen Delivery Method Nasal Cannula Weight: 150 lb 12.739 oz Body Mass Index (BMI) 23.6 Intake & Output: Intake and Output for Last 24 Hours 08/29/24 08/30/24 08/31/24 23:59 23:59 23:59 Intake Total 1560 / 1560 390 / 390 Output Total 400 / 400 400 / 400 Balance 1160 / 1160 -10 / -10 Lab / Micro Data 08/31/24 06:00 08/30/24 05:39 Labs: Laboratory Results - last 24 hr 08/31/24 06:00: WBC 9.6, RBC 3.94 L, Hgb 11.2 L, Hct 32.9 L, MCV 83.5, MCH 28.4, MCHC 34.0, RDW Std Deviation 47.9 H, RDW Coeff of Tea 15.8 H, Plt Count 274, MPV 9.2, Immature Gran % (Auto) 0.300, Neut % (Auto) 79.4 H, Lymph % (Auto) 7.4 L, M ha % (Auto) 12.7 H, Eos % (Auto) 0.0, Baso % (Auto) 0.2, Absolute Neuts (auto) 7.6, Absolute Lymphs (auto) 0.71 L, Nucleated RBC % 0 Radiography Diagnostic Testing: Radiology Impression Hip X-Ray 08/30/24 11:00 IMPRESSION: Expected postop change from left hip prosthesis placement. Alignment is anatomic. Negative for fracture. Reading Location: [facility] Physical Exam Const alert, oriented x3 and no apparent distress General Appearance: cooperative HEENT normocephalic, head/scalp atraumatic, hearing grossly normal bilaterally, moist oral mucous membranes and oropharynx normal Eyes PERRL and EOMs intact bilaterally Neck no lymphadenopathy and supple Lymph Lymphatic: no lymphadenopathy noted and no lymphedema noted Resp Resp Narrative: mildly diminished breath sounds bibasally, no wheezes or crackles. On 4L of oxygen by nasal canula. Cardio regular rate, regular rhythm, S1 normal heart sound, S2 normal heart sound and no murmurs GI normal to inspection, nondistended, normoactive bowel sounds, soft to palpation, non-tender and non-distended Extremity Extremity Narrative: intact dressing over surgical site on right hip. Skin General Skin Exam: no breakdown Neuro oriented x3, CN's II-XII intact bilaterally, moves all extremities and no focal motor deficits Neuro Narrative: drowsy, lethargic Sensorium / Orientation: awake, alert, oriented to person, oriented to place and oriented to time Speech: speech normal Motor Exam: general weakness Psych thought process normal, cooperative and affect normal Appearance: appropriate Assessment & Plan Assessment/Plan (1) Closed fracture of left hip: QUALIFIERS: Encounter type: initial encounter Qualified Code(s): S72.002A - Fracture of unspecified part of neck of left femur, initial encounter for closed fracture PLAN: Plan #Acute left hip subcapital fracture due to mechanical falls * s/p left hip hemiarthroplasty. Today is POD 1. * on PO tylenol, oxycodone and IV morphine prn for pain. * incentive spirometry * fall precautions * #Hyponatremia: * this is chronic. Sodium is still pending today * will monitor * #Probable dysphagia * Patient noted to be choking at bed when swallowing his meds according to his nurse. Speech therapy consulted. Patient denies any problems with swallowing. * Await speech therapy evaluation. * #History of alcohol use disorder: * Patient placed on alcohol withdrawal protocol as a precaution. * Currently not in any active withdrawal. * On adjunctive meds for symptomatic relief. * #Benign essential hypertension: on carvedilol and losartan. #Hyperlipidemia: on statin. #CAD: on statin. #History of abdominal aortic aneurysm s/p endovascular stent. #GERD: on PPI DVT prophylaxis:on lovenox 30mg bid x 30 days, per orthopedics. . Disposition: to be determined per PT/OT evaluation. Charges/Coding Visit Charges Inpatient E&M: 89413 Subs Hosp L2
--- NOTE | 2024-08-31 10:40 | CASEMGMT ---
SAMANTHA JACOBS Assessment Face to Face with patient for initial transition planning/care coordination assessment. SAMANTHA JACOBS introduced self and role at [facility], pt voices understanding. Pt states that he is legally blind. Pt is A&Ox4 and is resting comfortably in bed and is calm. Care providers, pharmacy, and demographics verified. Admitting dx: Lt Hip Fracture after Fall LACE Strata: 2 PCP: [facility] Specialists: Denies Preferred Pharmacy: [facility] Insurance: [facility] Prescription Benefit: Yes LNOK: Rashmi (W), Lauryn Khan (Daughter) Living Arrangements: Pt lives with his in a split level home with 6 steps between floors with 1 step to enter the home ADLs/IADLs: Reports mainly independent and that the pt provides support as needed Transportation: Pt does not drive. Pt drives. Denies concerns DME: [facility]. Shower chair. Grab bars. Pt declines medical alert system resources. Pt is currently requiring additional oxygen and may qualify for home oxygen use. A verbal list of local in-network DME companies were provided to the pt at this time. Pt prefers [facility].? HHC/SNF: Hx @ TCU. Hx @ [facility] for OP therapy. Denies HHC Hx. ETOH: Pt states that he drinks around 3 beers per day and declines ETOH resources. SW notified. Pt?s goal: TCU Plan: Anticipate [facility] TCU. Pt states that he had a good experience at the TCU in the past and states that he would prefer the TCU again and declines wanting to review a list of local in-network SNF's. At the time of assessment, PT eval pending. SW notified and will make referral once appropriate. Pt denies further questions or concerns at this time. Lilia Hines RN, CM
--- NOTE | 2024-08-31 11:56 | CASEMGMT ---
Social Work- SW received notice that pt would like referral to TCU. SW completed referral to TCU admissions. SW remains available to follow. BARBIE Shay
[2024-08-31 13:09] LABS: Phosphorus 1.9 mg/dL (2.7-4.5)
[2024-08-31 13:42] LABS: Anion Gap 11 (5-15); BUN 9 mg/dL (4-19); BUN/Creat Ratio 14.2 RATIO (10-20); Calcium,Total 8.8 mg/dL (7.6-11.0); Carbon Dioxide 20.2 mmol/L (21.0-32.0); Chloride 99 mmol/L (98-108); Creatinine, Serum 0.61 mg/dL (0.70-1.20); EST Glomerular Filtration Rate 95 (>60); Estimated Creatinine Clearance 64.26 ml/min (50-250); Glucose 132 mg/dL (70-99); Sodium Level 130 mmol/L (133-145)
[2024-08-31] MEDS: oxyCODONE 5 MG Tablet PO (17:17)
[2024-08-31] MEDS: Atorvastatin Calcium 20 MG Tablet PO (21:21)
[2024-08-31] MEDS: Enoxaparin 30 MG/0.3 ML Syringe SC (21:21)
[2024-08-31] MEDS: Tamsulosin HCl 0.4 MG Capsule 0.8 MG PO (21:22)
[2024-09-01] VITALS (13 sets, daily range): BP systolic 121–141; BP diastolic 74–81; PULSE 84–107; RESP 16–22; TEMP 36.6–37.3; O2SAT 92–97; BMI 24.2
[2024-09-01] MEDS: Phenobarbital 32.4 MG Tablet PO ×5 (01:05→22:50)
[2024-09-01] MEDS: Budesonide Respules 0.5 MG/2 ML AMPUL.NEB. INHALATION ×2 (07:24→19:11)
[2024-09-01] MEDS: Albuterol 2.5 MG/3 ML VIAL.NEB. INHALATION ×2 (07:24→13:23)
[2024-09-01 07:52] LABS: Absolute Lymphocyte Count 1.23 X10^3/uL (0.83-4.51); Absolute Neutrophil Count 7.3 X10^3/uL (2.0-7.7); Basophil# 0.03 X10^3/uL; Basophil% 0.3 % (0-1); Hematocrit 31.9 % (40-54); Hemoglobin 10.7 g/dL (13.0-16.5); Lymphocyte # 1.23 X10^3/ul (0.83-4.51); Lymphocyte % 12.5 % (19-41); Mean Corp Hgb Conc 33.5 g/dL (32-36); Mean Corpuscular Hgb 27.8 pg (27.0-32.0); Mean Corpuscular Volume 82.9 fL (80-94); Mean Platelet Vol. 8.9 fl (6.2-12.0); Monocyte# 1.23 X10^3/uL; Monocyte% 12.5 % (0-10); NRBC Flagged by Analyzer 0 % (0-5); Neutrophil # 7.26 X10^3/uL (2.7-7.7); Neutrophil % 74.1 % (47-70); Platelet Count 267 K/mm3 (150-450); RBC Distribution Width CV 15.9 % (11.6-14.6); RBC Distribution Width SD 47.7 fl (35.1-43.9); Red Blood Count 3.85 M/mm3 (4.6-6.2); White Blood Count 9.8 K/mm3 (4.4-11.0)
--- NOTE | 2024-09-01 07:55 | RAD_ITS ---
PROCEDURE: CHEST PA AND LATERAL 09/01/2024 REASON FOR EXAM: HYPOXIA TECHNIQUE: Three-view frontal and lateral views of the chest. COMPARISON: AP chest of 12/07/2022. RAD/Chest PA and Lateral IMPRESSION: Partially visualized inferior vena cava filter again present. Chronic lung changes are again seen. Superimposed is seen prominent right lower lobe area of airspace disease, ericka rning for the presence of Pneumonitis. No pleural effusion or pneumothorax is seen. The cardiomediastinal silhouette is stable, with a somewhat calcified aorta not ed. No evidence of cardiomegaly. No acute osseous change is seen. Reading Location: [id number]
--- NOTE | 2024-09-01 07:59 | PCM.PN.ORT ---
Subjective Subjective Doing well. some mild hip pain. 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 Objective Data Objective Data Vital Signs: Vital Signs Temp Pulse Resp BP Pulse Ox O2 Del Method O2 Flow Rate 99.1 F 106 H 16 141/79 H 94 Nasal Cannula 5 09/01/24 04:56 09/01/24 04:56 09/01/24 04:56 09/01/24 04:56 09/01/24 04:56 09/01/24 04:56 09/01/24 04:56 Oxygen Flow Rate (L/min) 5 Oxygen Delivery Method Nasal Cannula Weight: 154 lb 5.177 oz Body Mass Index (BMI) 24.2 Intake & Output: Intake and Output for Last 24 Hours 08/30/24 08/31/24 09/01/24 23:59 23:59 23:59 Intake Total 1560 / 1560 560 / 560 150 / 150 Output Total 400 / 400 1050 / 1050 400 / 400 Balance 1160 / 1160 -490 / -490 -250 / -250 Lab / Micro Data 09/01/24 07:37 08/31/24 06:00 Labs: Laboratory Results - last 24 hr 08/31/24 06:00: Sodium 130 L, Potassium 4.0, Chloride 99, Carbon Dioxide 20.2 L, Anion Gap 11, BUN 9, Creatinine 0.61 L, Estim Creat Clear Calc 64.26, Est GFR (MDRD) Non-Af 95, BUN/Creatinine Ratio 14.2, Glucose 132 H, Calcium 8.8, Phosphorus 1.9 L 09/01/24 07:37: WBC 9.8, RBC 3.85 L, Hgb 10.7 L, Hct 31.9 L, MCV 82.9, MCH 27.8, MCHC 33.5, RDW Std Deviation 47.7 H, RDW Coeff of Tea 15.9 H, Plt Count 267, MPV 8.9, Immature Gran % (Auto) 0.600, Neut % (Auto) 74.1 H, Lymph % (Auto) 12.5 L, [place] % (Auto) 12.5 H, Eos % (Auto) 0.0, Baso % (Auto) 0.3, Absolute Neuts (auto) 7.3, Absolute Lymphs (auto) 1.23, Nucleated RBC % 0 Radiography Diagnostic Testing: post op xr l hip appears normal bisi Physical Exam Const alert and oriented x3 Extremity normal capillary refill Extremity Narrative: thigh soft. drsg dry. nvi. wiggles toes. no pain with log roll. df and pf the foot. normal sensation. Assessment & Plan Assessment/Plan (1) Closed fracture of left hip: QUALIFIERS: Encounter type: initial encounter Qualified Code(s): S72.002A - Fracture of unspecified part of neck of left femur, initial encounter for closed fracture PLAN: POD 2 L hip bisi for femoral neck fracture. doing well. Will continue to follow. WBAT. PT/OT.
[2024-09-01 08:18] LABS: Anion Gap 12 (5-15); BUN 13 mg/dL (4-19); BUN/Creat Ratio 22.2 RATIO (10-20); Calcium,Total 8.6 mg/dL (7.6-11.0); Carbon Dioxide 20.1 mmol/L (21.0-32.0); Chloride 100 mmol/L (98-108); Creatinine, Serum 0.59 mg/dL (0.70-1.20); EST Glomerular Filtration Rate 96 (>60); Estimated Creatinine Clearance 64.26 ml/min (50-250); Glucose 129 mg/dL (70-99); Potassium 3.8 mmol/L (3.3-5.1); Sodium Level 132 mmol/L (133-145)
[2024-09-01] MEDS: Folic Acid 1 MG Tablet PO (08:27)
[2024-09-01] MEDS: Carvedilol 3.125 MG TABLET PO (08:27)
[2024-09-01] MEDS: Thiamine Hydrochloride 100 MG Tablet PO (08:27)
[2024-09-01] MEDS: hydrOXYzine PAM 25 MG Capsule 50 MG PO (08:34)
[2024-09-01] MEDS: Losartan Potassium 50 MG Tablet PO (08:34)
[2024-09-01] MEDS: Acetaminophen 325 MG Tablet 650 MG PO ×2 (08:34→20:30)
[2024-09-01] MEDS: oxyCODONE 5 MG Tablet PO ×2 (08:34→20:31)
[2024-09-01] MEDS: Enoxaparin 30 MG/0.3 ML Syringe SC ×2 (08:34→22:52)
[2024-09-01] MEDS: Pantoprazole Sodium 40 MG Tablet PO (08:35)
[2024-09-01] MEDS: guaiFENesin 1,200 MG Tablet 1200 MG PO ×2 (08:35→22:52)
[2024-09-01 09:00] LABS: Pro- Brain NATRIURETIC PEPTIDE 653 pg/mL (<=1800)
--- NOTE | 2024-09-01 09:39 | PN_ITS ---
Subjective Subjective Patient seen and examined. He had no active complaints. He is on 6L of oxygen. He denies any cough, chest pain, palpitations, dizziness, nausea, vomiting or any other symptoms. He says he still smokes half a pack a day. He has not been compliant with his incentive spirometry. Objective Data Objective Data Vital Signs: Vital Signs Temp Pulse Resp BP Pulse Ox O2 Del Method O2 Flow Rate 99.1 F 106 H 16 141/79 H 94 Nasal Cannula 6 09/01/24 04:56 09/01/24 04:56 09/01/24 04:56 09/01/24 04:56 09/01/24 04:56 09/01/24 08:46 09/01/24 08:46 Oxygen Flow Rate (L/min) 6 Oxygen Delivery Method Nasal Cannula Weight: 154 lb 5.177 oz Body Mass Index (BMI) 24.2 Intake & Output: Intake and Output for Last 24 Hours 08/30/24 08/31/24 09/01/24 23:59 23:59 23:59 Intake Total 1560 / 1560 560 / 560 150 / 150 Output Total 400 / 400 1050 / 1050 400 / 400 Balance 1160 / 1160 -490 / -490 -250 / -250 Lab / Micro Data 09/01/24 07:37 09/01/24 07:37 Labs: Laboratory Results - last 24 hr 08/31/24 06:00: Sodium 130 L, Potassium 4.0, Chloride 99, Carbon Dioxide 20.2 L, Anion Gap 11, BUN 9, Creatinine 0.61 L, Estim Creat Clear Calc 64.26, Est GFR (MDRD) Non-Af 95, BUN/Creatinine Ratio 14.2, Glucose 132 H, Calcium 8.8, P hosphorus 1.9 L 09/01/24 07:37: WBC 9.8, RBC 3.85 L, Hgb 10.7 L, Hct 31.9 L, MCV 82.9, MCH 27.8, MCHC 33.5, RDW Std Deviation 47.7 H, RDW Coeff of Tea 15.9 H, Plt Count 267, MPV 8.9, Immature Gran % (Auto) 0.600, Neut % (Auto) 74.1 H, Lymph % (Auto) 12.5 L, Carroll % (Auto) 12.5 H, Eos % (Auto) 0.0, Baso % (Auto) 0.3, Absolute Neuts (auto) 7.3, Absolute Lymphs (auto) 1.23, Nucleated RBC % 0, Sodium 132 L, Potassium 3.8, Chloride 100, Carbon Dioxide 20.1 L, Anion Gap 12, BUN 13, Creatinine 0.59 L, Estim Creat Clear Calc 64.26, Est GFR (MDRD) Non-Af 96, BUN/Creatinine Ratio 22.2 H, Glucose 129 H, Calcium 8.6, NT pro BNP II 653 Radiography Diagnostic Testing: Radiology Impression Chest X-Ray 09/01/24 07:55 IMPRESSION: Partially visualized inferior vena cava filter again present. Chronic lung changes are again seen. Superimposed is seen prominent right lower lobe area of airspace disease, concerning for the presence of Pneumonitis. No pleural effusion or pneumothorax is seen. The cardiomediastinal silhouette is stable, with a somewhat calcified aorta noted. No evidence of cardiomegaly. No acute osseous change is seen. Reading Location: [address] Physical Exam Const alert, oriented x3, no apparent distress and average body habitus General Appearance: cooperative HEENT normocephalic, head/scalp atraumatic, hearing grossly normal bilaterally, moist oral mucous membranes and oropharynx normal Eyes PERRL and EOMs intact bilaterally Neck no lymphadenopathy and supple Lymph Lymphatic: no lymphadenopathy noted and no lymphedema noted Resp Resp Narrative: mildly diminished breath sounds bibasally, no wheezes or crackles. On 6 L of oxygen by nasal canula. Cardio regular rate, regular rhythm, S1 normal heart sound, S2 normal heart sound and no murmurs GI normal to inspection, nondistended, normoactive bowel sounds, soft to palpation, non-tender and non-distended Extremity Extremity Narrative: intact dressing over surgical site on right hip. General Extremity: no tenderness to palpation of joints or extremities Skin General Skin Exam: no breakdown Neuro oriented x3, CN's II-XII intact bilaterally, moves all extremities and no focal motor deficits Neuro Narrative: drowsy, lethargic Sensorium / Orientation: awake, alert, oriented to person, oriented to place and oriented to time Speech: speech normal Motor Exam: general weakness Psych thought process normal, cooperative and affect normal Appearance: appropriate Assessment & Plan Assessment/Plan (1) Closed fracture of left hip: QUALIFIERS: Encounter type: initial encounter Qualified Code(s): S72.002A - Fracture of unspecified part of neck of left femur, initial encounter for closed fracture PLAN: Plan #Acute left hip subcapital fracture due to mechanical falls * s/p left hip hemiarthroplasty. Today is POD 2 * on PO tylenol, oxycodone and IV morphine prn for pain. * incentive spirometry * fall precautions * #Hypoxia * concern for aspiration. He is on 6L of oxygen today, was on 4L yesterday. * there was concern for aspiration pneumonia as patient was noted to be choking when taking his meds yesterday. * CXR today showed chronic lung changes with superimposed prominent right lower lobe area of airspace disease, concerning for pneumonitis. * BNP is not elevated an is 683 today. (normal is <1800). * will start on breathing treatment with bronchodilators. * Start on IV unasyn due to concern for aspiration pneumonitis. * encouraged to be compliant with incentive spirometry * check respiratory panel * #Hyponatremia: * this is chronic. Sodium is still pending today * will monitor * #Probable dysphagia * Patient noted to be choking at bed when swallowing his meds according to his nurse. Speech therapy consulted. Patient denies any problems with swallowing. * Await speech therapy evaluation. * #History of alcohol use disorder: * Patient placed on alcohol withdrawal protocol as a precaution. * Currently not in any active withdrawal. * On adjunctive meds for symptomatic relief. * #Benign essential hypertension: on carvedilol and losartan. #Hyperlipidemia: on statin. #CAD: on statin. #History of abdominal aortic aneurysm s/p endovascular stent. #GERD: on PPI DVT prophylaxis:on lovenox 30mg bid x 30 days, per orthopedics. . Disposition: to be determined per PT/OT evaluation. Charges/Coding Visit Charges Inpatient E&M: 29951 Subs Hosp L2
--- NOTE | 2024-09-01 10:39 | CASEMGMT ---
Social Work- Pt was accepted at TCU pending precert and when medically ready. SW remains available to follow. Plan: TCU; skilled level of care BARBIE Shay
[2024-09-01] MEDS: Ampicillin/Sulbactam 3 GM in 0.9% Normal Saline (100mL MB+) 100 ML IV ×3 (11:21→23:07)
--- NOTE | 2024-09-01 15:19 | SP.MBSS_ITS ---
Modified Barium Swallow Patient Information Study Date: 09/01/24 Study Time: 10:30 Direct Billable Minutes: 120 Total Minutes procedure & reportin Diagnosis: GERD K21.9, COPD J44.9 Referring Physician: Maya Tejada Reason for Referral: Assess swallow function, assess risk for aspiration, and determine recommendations for least restrictive diet textures and compensatory strategies to facilitate safe po intake. Medical History: PMH: HTN, HLD, CAD with ischemic cardiomyopathy, history of AAA s/p endovascular stent graft (2013), history of Right iliac artery aneurysm (2013), history of tobacco abuse with subsequent COPD, history of alcohol abuse (3 or more alcoholic drinks per day), history of macular degeneration, history of cataracts, history of Right inguinal hernia s/p repair (2021), GERD with history of gastric ulcer on omeprazole, OA with history of Right femoral neck fracture s/p ORIF by Dr. 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 See EMR for full PMH. The patient presented to [facility] ED who presents to [facility] ER 08/29/2024 complaining of left hip pain after fall. Orthopedic surgery consulted w/ ORIF of L hip completed 08/30/2024. Per nursing, pt had difficulty swallow pills 08/31/2024. ST consulted to evaluate swallow function. BSE revealed coughing w/ liquids, which pt attributed to his COPD. He was recommended regular textures / thin liquids w/ plan for MBSS today to further assess swallow function and risk for aspiration. Current Diet Ordered: Regular textures / Thin liquids Dentition: Upper Dentures and Lower Dentures Respiratory Status: Oxygenating on 4L/M nasal cannula (6L via nasal cannula) Penetration-Aspiration Scale Penetration-Aspiration Scale: OBJECTIVE ASSESSMENT OF SWALLOW FUNCTION (QUANTITATIVE ? PER TRIAL): PENETRATION / ASPIRATION SCALE (PEACOCK): 1 = does not enter airway 2 = enters airway/above vocal folds/ejected 3 = enters airway/above vocal folds/not ejected 4 = enters airway/contacts vocal folds/ejected 5 = enters airway/contacts vocal folds/not ejected 6 = enters airway/below vocal folds/ejected 7 = enters airway/below vocal folds/not ejected despite effort 8 = enters airway/below vocal folds/no effort VIDEOFLOROSCOPIC SCALE SCORE (PEACOCK): Grade I = aspiration of material that has penetrated into the laryngeal vestibule, intact cough reflex Grade II = aspiration < 10 % of the bolus, intact cough reflex Grade III = aspiration of < 10 % of the bolus, reduced cough reflex or aspiration of > 10 % of the bolus, intact cough reflex Grade IV = aspiration of > 10 % of the bolus, reduced cough reflex Penetration-Aspiration Scale Score Thin Liquid via teaspoon: Result: 2= enter airway/above vocal folds/ejected Thin Liquid via teaspoon Trial 2: Result: 3= enters airways/above vocal folds/not ejected Comment: Laryngeal penetration reached vocal folds prior to swallowing the next trial. Thin Liquid via large single sip: cup: Result: 7= enters airways/below vocal folds/not ejected despite effort (weak reflexive cough immediately after the swallow) Comment: Cued cough and re-swallow 2X (Pt reluctant at first until PROFESSIONAL DEVELOPMENT MANAGER informed him he had residual drink on his vocal folds and in his airway) = somewhat effective. [place] Thick Liquid via small single sip: cup: Result: 3= enters airways/above vocal folds/not ejected (Reflexive cough) Pudding via teaspoon: Result: 1= does not enter airway Comment: Esophageal screen - Complete clearance. Honey Thick Liquid via teaspoon: Result: 1= does not enter airway Honey Thick Liquid via small single sip: cup: Result: 1= does not enter airway 1/2 Cookie: Result: 1= does not enter airway [place] Thick Liquid via teaspoon: Result: 1= does not enter airway (Reflexive cough) [place] Thick Liquid via teaspoon Trial 2: Result: 1= does not enter airway Thin Liquid via single sip: straw: Result: 3= enters airways/above vocal folds/not ejected Thin Liquid via single sip: straw Effortful swallow: Result: 5= enters airways/contacts vocal folds/not ejected Thin Liquid via single sip: straw Chin tuck: Result: 7= enters airways/below vocal folds/not ejected despite effort Oral Phase Labial Seal: Escape beyond mid-chin Tongue Control During Bolus Hold: Posterior escape of greater than half of bolus Bolus Preparation/Mastication: Disorganized chewing/mashing with solid pieces of bolus unchewed Bolus Transport/Lingual Motion: Repetitive/disorganized tongue motion Oral Residue: Residue collection on oral structures Pharyngeal Phase Initiation of Pharyngeal Swallow: Bolus head in pyriforms Soft Palate Elevation: Trace column of contrast/air between soft palate and pharyngeal wall Laryngeal Elevation: Partial superior movement thyroid cart/partial apprx aryt- epig petiole Anterior Hyoid Excursion: Partial anterior movement Epiglottic Movement: Complete inversion Laryngeal Vestibule Closure at Height of Swallow: Incomplete; narrow column of air/contrast in laryngeal vestibule Pharyngeal Stripping Wave: Present - diminished Pharyngoesophageal Segment Opening: Parital distension and partial duration; parital obstruction of flow Tongue Base Retraction: Narrow column of contrast between tongue base & post. pharyngeal wall Pharyngeal Residue: Collection of residue within or on pharyngeal structures Esophageal Phase Esophageal Clearance: Esophageal retention (trace retention in UES) Diagnosis/Impression Diagnosis: Moderate oropharyngeal dysphagia R13.12 Impression: The oral phase is marked by... -Decreased labial seal w/ anterior loss of liquids past mid chin. -Decreased bolus control w/ posterior loss of >1/2 of thin liquid boluses to the pyriforms prior to swallow onset. -Lingual pumping w/ cookie. -Decreased mastication w/ small pieces of cookie appearing un-chewed. -Mild oral residues. Of note, patient spit out 2 small pieces of cordova during MBSS, which his RN confirmed he had eaten at breakfast. The pharyngeal phase is marked by... -Delayed swallow onset. -Decreased pharyngeal motility due to decreased TB retraction, pharyngeal stripping wave, and UES opening/duration w/ mild-moderate pharyngeal residues increasing risk for post prandial aspiration. -Aspiration of thin liquids via cup, liquids via straw w/ chin tuck w/ ineffective reflexive cough. Recommendations Diet: Soft and Bite Sized Textures and Mildly Thick Liquids Comment: Oral care after meals Compensatory Strategies: Small Bites, Liquid by Teaspoon Only, Slow Rate, Si tting upright and Remain sitting upright for 30 minutes after PO intake Supervision: 1:1 Direct Supervision (Assist feeding as need w/ sips by tsp and blindness) Recommend Repeat Modified Barium Swallow: Yes (1-2 weeks after oropharyngeal strengthening) Need for Skilled Speech Therapy Services: Yes Comment: -Train the patient in use of strategies to decrease risk for aspiration. -Ongoing assessment of diet tolerance of recommended textures. Consider implementation of FFWP to encourage hydration at next level of care. -Train the patient in oral motor and oropharyngeal exercise program to improve bolus control, lip seal, pharyngeal motility, UES opening/duration, and airway closure (labial seal, lingual resistance, Nelda, Effortful, Aimee, Shaker). Education Completed: 1. Described result of evaluation., 2. Pt understands evaluation & agrees with goals and treatment plan. and 7. Pt requires further education on strategies & risks. Status Active ST Patient: Active Contact Information [facility] Speech Therapy:: Tiffany Alvarenga M.A. CCC-PROFESSIONAL DEVELOPMENT MANAGER? Speech-Language Pathologist?? [facility] [address] [place] [address]? [email or web address]?? [phone]
[2024-09-01] MEDS: Tamsulosin HCl 0.4 MG Capsule 0.8 MG PO (22:52)
[2024-09-01] MEDS: Atorvastatin Calcium 20 MG Tablet PO (22:52)
[2024-09-02] VITALS (11 sets, daily range): BP systolic 115–150; BP diastolic 74–90; PULSE 85–106; RESP 16–24; TEMP 36.7–37.1; O2SAT 92–96; BMI 23.2
[2024-09-02] MEDS: Phenobarbital 32.4 MG Tablet PO ×3 (04:59→17:32)
[2024-09-02] MEDS: Ampicillin/Sulbactam 3 GM in 0.9% Normal Saline (100mL MB+) 100 ML IV ×4 (04:59→23:24)
[2024-09-02] MEDS: Budesonide Respules 0.5 MG/2 ML AMPUL.NEB. INHALATION (06:45)
[2024-09-02] MEDS: Thiamine Hydrochloride 100 MG Tablet PO (08:17)
[2024-09-02] MEDS: Carvedilol 3.125 MG TABLET PO (08:17)
[2024-09-02] MEDS: Folic Acid 1 MG Tablet PO (08:17)
[2024-09-02] MEDS: oxyCODONE 5 MG Tablet PO ×2 (08:18→17:32)
--- NOTE | 2024-09-02 10:09 | PN_ITS ---
Subjective Subjective Patient seen and examined. He had no complaints. He is down to 1 L of oxygen. Review of systems otherwise negative. He has otherwise remained hemodynamically stable. Objective Data Objective Data Vital Signs: Vital Signs Temp Pulse Resp BP Pulse Ox O2 Del Method O2 Flow Rate 98.3 F 97 22 H 142/81 H 94 Nasal Cannula 1 09/02/24 07:39 09/02/24 07:39 09/02/24 07:39 09/02/24 07:39 09/02/24 07:39 09/02/24 08:44 09/02/24 08:44 Oxygen Flow Rate (L/min) 1 Oxygen Delivery Method Nasal Cannula Weight: 147 lb 14.883 oz Body Mass Index (BMI) 23.2 Intake & Output: Intake and Output for Last 24 Hours 08/31/24 09/01/24 09/02/24 23:59 23:59 23:59 Intake Total 560 / 560 636 / 636 112 / 112 Output Total 1050 / 1050 800 / 800 250 / 250 Balance -490 / -490 -164 / -164 -138 / -138 Lab / Micro Data 09/01/24 07:37 09/01/24 07:37 Micro: Microbiology 09/01/24 11:46 Mucosa - Nasopharyngeal Respiratory Panel (PCR) - Final Physical Exam Const alert, oriented x3, no apparent distress and average body habitus General Appearance: cooperative Orientation / Consciousness: lethargic HEENT normocephalic, head/scalp atraumatic, hearing grossly normal bilaterally, moist oral mucous membranes and oropharynx normal Eyes PERRL and EOMs intact bilaterally Neck no lymphadenopathy and supple Lymph Lymphatic: no lymphadenopathy noted and no lymphedema noted Resp Resp Narrative: mildly diminished breath sounds bibasally, no wheezes or crackles.down to 1L of oxygen by nasal canula Cardio regular rate, regular rhythm, S1 normal heart sound, S2 normal heart sound and no murmurs GI normal to inspection, nondistended, normoactive bowel sounds, soft to palpation, non-tender and non-distended Extremity Extremity Narrative: intact dressing over surgical site on right hip. General Extremity: no tenderness to palpation of joints or extremities Skin General Skin Exam: no breakdown Neuro oriented x3, CN's II-XII intact bilaterally, moves all extremities and no focal motor deficits Sensorium / Orientation: awake, alert, oriented to person, oriented to place and oriented to time Speech: speech normal Motor Exam: general weakness Psych thought process normal, cooperative and affect normal Appearance: appropriate Assessment & Plan Assessment/Plan (1) Closed fracture of left hip: QUALIFIERS: Encounter type: initial encounter Qualified Code(s): S72.002A - Fracture of unspecified part of neck of left femur, initial encounter for closed fracture PLAN: Plan #Acute left hip subcapital fracture due to mechanical falls * s/p left hip hemiarthroplasty. Today is POD 3 * on PO tylenol, oxycodone and IV morphine prn for pain. * incentive spirometry * fall precautions * #Hypoxia * concern for aspiration. * improving. He is down to 1L today from 6L yesterday. * on IV unasyn due to concerns for aspiration pneumonitis. * incentive spirometry. * breathing treatment with bronchodilators. * respiratory panel negative. * #Hyponatremia: * this is chronic. Will monitor. * will monitor * #Probable dysphagia * Patient noted to be choking at bed when swallowing his meds according to his nurse. Speech therapy consulted. Patient denies any problems with swallowing. * speech therapy recommends modified barium swallow to further assess oropharyngeal function. * #History of alcohol use disorder: * Patient placed on alcohol withdrawal protocol as a precaution. * Currently not in any active withdrawal. * On adjunctive meds for symptomatic relief. * #Benign essential hypertension: on carvedilol and losartan. #Hyperlipidemia: on statin. #CAD: on statin. #History of abdominal aortic aneurysm s/p endovascular stent. #GERD: on PPI DVT prophylaxis:on lovenox 30mg bid x 30 days, per orthopedics. . Disposition: awaiting placement, pending precert. Charges/Coding Visit Charges Inpatient E&M: 12823 Subs Hosp L2
[2024-09-02] MEDS: Losartan Potassium 50 MG Tablet PO (10:16)
[2024-09-02] MEDS: guaiFENesin 1,200 MG Tablet 1200 MG PO ×2 (10:16→21:27)
[2024-09-02] MEDS: Enoxaparin 30 MG/0.3 ML Syringe SC ×2 (10:17→21:27)
[2024-09-02] MEDS: Pantoprazole Sodium 40 MG Tablet PO (10:17)
[2024-09-02] MEDS: 0.9% Saline Lock 10 ML Syringe IV (11:24)
--- NOTE | 2024-09-02 16:13 | NURSING ---
All documentation by nursing information systems coordinator Lilli Kim reviewed by nursing information systems coordinator Mari Jasso BSN, RN.
[2024-09-02] MEDS: Tamsulosin HCl 0.4 MG Capsule 0.8 MG PO (21:27)
[2024-09-02] MEDS: Atorvastatin Calcium 20 MG Tablet PO (21:27)
[2024-09-03] MEDS: Acetaminophen 325 MG Tablet 650 MG PO (00:49)
[2024-09-03] MEDS: oxyCODONE 5 MG Tablet PO (00:50)
[2024-09-03 02:00] VITALS: BP 143/72; PULSE 91; RESP 18; TEMP 36.6; O2SAT 95
[2024-09-03 03:03] VITALS: PULSE 86
[2024-09-03] MEDS: 0.9% Normal Saline (100mL Bag) 100 ML 15 ML IV (05:26)
[2024-09-03] MEDS: Ampicillin/Sulbactam 3 GM in 0.9% Normal Saline (100mL MB+) 100 ML IV (05:26)
[2024-09-03 06:00] VITALS: BMI 23.3
[2024-09-03 07:09] VITALS: PULSE 87; RESP 20; O2SAT 91
[2024-09-03] MEDS: Budesonide Respules 0.5 MG/2 ML AMPUL.NEB. INHALATION (07:09)
[2024-09-03 09:06] LABS: Absolute Lymphocyte Count 1.82 X10^3/uL (0.83-4.51); Absolute Neutrophil Count 6.9 X10^3/uL (2.0-7.7); Basophil# 0.05 X10^3/uL; Basophil% 0.5 % (0-1); Eosinophil# 0.22 X10^3/uL; Eosinophils% 2.1 % (0-5); Hematocrit 35.5 % (40-54); Hemoglobin 11.6 g/dL (13.0-16.5); Lymphocyte # 1.82 X10^3/ul (0.83-4.51); Lymphocyte % 17.2 % (19-41); Mean Corp Hgb Conc 32.7 g/dL (32-36); Mean Corpuscular Hgb 28.1 pg (27.0-32.0); Mean Platelet Vol. 8.6 fl (6.2-12.0); Monocyte# 1.33 X10^3/uL; Monocyte% 12.5 % (0-10); NRBC Flagged by Analyzer 0 % (0-5); Neutrophil # 6.92 X10^3/uL (2.7-7.7); Neutrophil % 65.2 % (47-70); POSITIVE MORPHOLOGY YES; Platelet Count 350 K/mm3 (150-450); RBC Distribution Width CV 16.2 % (11.6-14.6); RBC Distribution Width SD 50.7 fl (35.1-43.9); Red Blood Count 4.13 M/mm3 (4.6-6.2); White Blood Count 10.6 K/mm3 (4.4-11.0)
[2024-09-03 09:28] VITALS: BP 105/64; PULSE 104; RESP 16; TEMP 36.6; O2SAT 96
[2024-09-03 09:36] LABS: Anion Gap 12 (5-15); BUN 14 mg/dL (4-19); BUN/Creat Ratio 21.6 RATIO (10-20); Calcium,Total 8.8 mg/dL (7.6-11.0); Carbon Dioxide 23.7 mmol/L (21.0-32.0); Chloride 104 mmol/L (98-108); Creatinine, Serum 0.64 mg/dL (0.70-1.20); Differential Indicated SCAN CRITERIA MET; EST Glomerular Filtration Rate 93 (>60); Estimated Creatinine Clearance 64.26 ml/min (50-250); Glucose 108 mg/dL (70-99); Potassium 3.2 mmol/L (3.3-5.1); Sodium Level 140 mmol/L (133-145)
--- NOTE | 2024-09-03 09:37 | PCM.TXEXTCAR ---
Diet Diet Order/Speech Therapy: 08/31/24 01:32 Diet: Regular - General Food consistency:: Easy to Chew Liquid Consistency:: Cayuse/Mildly Thick Diet Comments: Direct sup/assist feeding, liquids by tsp, meds whole in Routine Orders/Code Status Routine Lab Work: BMP (Repeat in 5 to 7 days to ensure stable sodium and potassium levels) Code Status: Full Code DC O2, CPAP, BIPAP needs Home O2 Discharge instructions: No Wound(s) Right Sol: Wound Type: Skin Tear LEFT HIP: Wound Type: Surgical Incision Therapies Weight Bearing: Weight bearing as tolerated Physical Therapy: Eval and Treat Occupational Therapy: Eval and Treat Speech Therapy: Eval and Treat Problem/Diagnosis (1) Closed fracture of left hip: Status: Acute Code(s): S72.002A - Fracture of unspecified part of neck of left femur, initial encounter for closed fracture Plan Patient is an 84-year-old male who presented [facility] ED on 08/29/2024 with left hip pain after a mechanical fall. Hospital course as noted below. Patient discharged to TCU in stable condition on 09/03. 1. Left hip subcapital fracture due to mechanical fall with acute on chronic debility ? Orthopedic surgery followed. PT/OT/case management followed. S/p left hip hemiarthroplasty with Dr. Vázquez on 08/30. Tolerated procedure well, no intraoperative complications. Postoperative course complicated by hypoxia with concern for aspiration pneumonia as noted below, otherwise doing well. Per orthopedics, weightbearing as tolerated. Continue pain control with Tylenol as needed and oxycodone as needed. DVT prophylaxis with Lovenox 30 mg twice daily for 30 days. Discharged to TCU in stable condition on 09/03. 2. Hypoxia with concern for aspiration pneumonia, improving ? Had concern for aspiration event on 09/01 leading to hypoxia requiring up to 6 L nasal cannula. Chest x-ray showed prominent right lower lobe airspace disease superimposed on chronic lung changes concerning for aspiration pneumonitis versus pneumonia. Has now been weaned to 1 L nasal cannula. De-escalated from Unasyn to Augmentin on 09/03 with plan for 7-day course of antibiotics total, stop date 09/07. 3. Moderate oropharyngeal dysphagia ? Speech therapy followed. MBSS on 09/01 consistent with moderate oropharyngeal dysphagia. Diet per speech therapy of soft and bite-size textures with mildly thick liquids and oral care after meals. Patient has been tolerating this well with no repeat aspiration events. 4. History of alcohol use disorder ? Placed on alcohol withdrawal protocol as a precaution but patient did not require any medication during admission. 5. Hyponatremia, improved ? Sodium 127-132 for majority of hospitalization and it appears he has mild chronic hyponatremia. However, sodium up to 140 on 09/03. Recommend repeat labs in 5 to 7 days after discharge to ensure sodium level remains stable. 6. Tobacco use disorder ? Nicotine patch in place per patient request. Discussed cessation on discharge. Chronic medical conditions: ? History of nonobstructive CAD, hypertension, hyperlipidemia: Continue home statin, Coreg and losartan. ? GERD: Continue home PPI. ? History of AAA s/p endovascular stenting ? COPD: Stable, not in acute exacerbation. Continue home inhalers. ? BPH with obstructive symptoms: Continue home Flomax. Total clinical time spent by myself addressing the patient's medical issues, reviewing all the data, and collaborating with patient's care team: 35 minutes. Allergies/Procedures Done in Hospital Allergies No Known Allergies Allergy (Verified 08/29/24 19:12) Procedures: EKG and - (Left hip hemiarthroplasty, CT brain, hip x-ray x 2, chest x-ray, modified barium swallow study) Type of Care/Length of Stay Estimated LOS: Convalescent Care Less Than 30 days Type of Care Needed: Skilled Rehab Potential: Fair Prognosis: Fair Additional Orders/Day of Discharge H&P will serve as current which was dated: 08/29/24 Day of Discharge: 09/03/24 Discharge Plan Admission Admit Date/Time: 08/29/24 20:59 Primary Reason for Your Visit: Fall with left hip pain Attending Provider: Dio Barajas Primary Care Provider: Roberto Wing Consulting Providers: Haresh Vázquez; Jarrell Briceno; Maya Tejada Discharge Orders/Prescriptions Prescriptions: New acetaminophen 325 mg Tablet 650 mg PO Q6H PRN PRN (Reason: Pain 1-5/10 or Fever) 14 Days Qty: 0 0RF nicotine 14 mg/24 hr Patch 24 Hour 14 mg transdermal DAILY 7 Days Qty: 0 0RF amoxicillin-pot clavulanate 875-125 mg Tablet 1 tab PO BIDCM 5 Days Qty: 9 0RF oxycodone 5 mg Tablet 5 mg PO Q6H PRN PRN (Reason: Pain Score 4-10) 3 Days Qty: 12 0RF enoxaparin 30 mg/0.3 mL Syringe 30 mg subcut BID 25 Days Qty: 0 0RF Continued (DME) Handicap Placard See Rx Instructions .ROUTE .MEDSUPPLY Qty: 1 0RF Rx Instructions: As directed, length of time 3 years omeprazole 40 mg capsule,delayed release(DR/EC) 40 mg PO DAILY Qty: 90 3RF guaifenesin [Mucinex] 1,200 mg tablet extended release 12hr 1,200 mg PO BID Qty: 120 3RF atorvastatin 20 mg Tablet 20 mg PO QHS Qty: 0 0RF albuterol sulfate 2.5 mg /3 mL (0.083 %) Solution For Nebulization 2.5 mg inhalation Q6H PRN (Reason: shortness of breath or wheezing) Qty: 0 0RF carvedilol 3.125 mg tablet 3.125 mg PO DAILY Qty: 90 2RF losartan 50 mg tablet 50 mg PO DAILY Qty: 90 1RF budesonide-formoterol [Symbicort] 160-4.5 mcg/actuation HFA aerosol inhaler 2 puff inhalation BID Qty: 10.2 2RF tamsulosin 0.4 mg capsule See Rx Instructions .ROUTE .COMPLEX Qty: 180 1RF Dose Instruction: TAKE 2 CAPS ORALLY AT BEDTIME FOR 3 MONTHS Rx Instructions: TAKE 2 CAPS ORALLY AT BEDTIME FOR 3 MONTHS Referrals / Follow Up: Roberto Wing MD [Primary Care Provider] - Disposition Disposition (needs filled in before D/C Order can be placed): Residential Facility (1) Closed fracture of left hip Qualifiers: Encounter type: initial encounter Qualified Code(s): S72.002A - Fracture of unspecified part of neck of left femur, initial encounter for closed fracture
--- NOTE | 2024-09-03 09:37 | PCM.DC.SUM ---
Providers Date of Admission: 08/29/24 Date of Discharge: 09/03/24 Primary Care Physician: Dr. Roberto Wing MD Consultations 08/29/24 22:00 Consult: Orthopedics Routine Consulting Provider: Haresh Vázquez Reason for Consult: Left Hip Fracture after Fall. EMERGENT Consult: No MD Notified: Yes Date Notified: 08/29/24 Time Notified: 21:03 Method of Notification: ED Physician Initiated Reason For Visit: LIP HIP FRACTURE AFTER FALL, HYPONATREMIA AND Diagnosis Discharge Diagnosis (1) Closed fracture of left hip: Status: Acute Code(s): S72.002A - Fracture of unspecified part of neck of left femur, initial encounter for closed fracture Qualifiers: Encounter type: initial encounter Qualified Code(s): S72.002A - Fracture of unspecified part of neck of left femur, initial encounter for closed fracture Medications at Discharge Home Medications Handicap Placard #1 ea 12/29/21 albuterol sulfate 2.5 mg/3 mL (0.083 %) solution for nebulization 2.5 mg (3 mL) inhalation Q6H PRN shortness of breath or wheezing #0 mL 12/12/22 atorvastatin 20 mg tablet 20 mg PO QHS Cholesterol #0 tabs 12/12/22 carvedilol 3.125 mg tablet 3.125 mg PO DAILY HEART #90 tabs 01/14/24 omeprazole 40 mg capsule,delayed release 40 mg PO DAILY #90 caps 02/28/24 losartan 50 mg tablet 50 mg PO DAILY BLOOD PRRESSURE #90 tabs 04/30/24 budesonide-formoterol HFA 160 mcg-4.5 mcg/actuation aerosol inhaler (Symbicort) 2 puff inhalation BID #10.2 grams 06/08/24 tamsulosin 0.4 mg capsule See Rx Instructions .Route .COMPLEX #180 CAPSULES 08/17/24 guaifenesin 1,200 mg tablet, extended release 12 hr (Mucinex) 1,200 mg PO BID #120 tabs 08/28/24 acetaminophen 325 mg tablet 650 mg (2 x 325 mg) PO Q6H PRN PRN Pain 1-5/10 or Fever 14 days #0 tabs 09/03/24 amoxicillin 875 mg-potassium clavulanate 125 mg tablet 1 tab PO BIDCM 5 days #9 tabs 09/03/24 enoxaparin 30 mg/0.3 mL subcutaneous syringe 30 mg (0.3 mL) subcut BID 25 days #0 mL 09/03/24 nicotine 14 mg/24 hr daily transdermal patch 14 mg transdermal DAILY 7 days #0 ea 09/03/24 oxycodone 5 mg tablet 5 mg PO Q6H PRN PRN Pain Score 4-10 3 days #12 tabs 09/03/24 Hospital Course Operations total hip replacement (left) Procedures EKG, Modified Barium Swallow and - (CT brain, hip x-ray x 2, chest x-ray) Summary of Care Provided Minutes Spent on Discharge: 35 Hospital Course: Patient is an 84-year-old male who presented [facility] ED on 08/29/2024 with left hip pain after a mechanical fall. Hospital course as noted below. Patient discharged to TCU in stable condition on 09/03. 1. Left hip subcapital fracture due to mechanical fall with acute on chronic debility ? Orthopedic surgery followed. PT/OT/case management followed. S/p left hip hemiarthroplasty with Dr. Vázquez on 08/30. Tolerated procedure well, no intraoperative complications. Postoperative course complicated by hypoxia with concern for aspiration pneumonia as noted below, otherwise doing well. Per orthopedics, weightbearing as tolerated. Continue pain control with Tylenol as needed and oxycodone as needed. DVT prophylaxis with Lovenox 30 mg twice daily for 30 days. Discharged to TCU in stable condition on 09/03. 2. Hypoxia with concern for aspiration pneumonia, improving ? Had concern for aspiration event on 09/01 leading to hypoxia requiring up to 6 L nasal cannula. Chest x-ray showed prominent right lower lobe airspace disease superimposed on chronic lung changes concerning for aspiration pneumonitis versus pneumonia. Has now been weaned to 1 L nasal cannula. De-escalated from Unasyn to Augmentin on 09/03 with plan for 7-day course of antibiotics total, stop date 09/07. 3. Moderate oropharyngeal dysphagia ? Speech therapy followed. MBSS on 09/01 consistent with moderate oropharyngeal dysphagia. Diet per speech therapy of soft and bite-size textures with mildly thick liquids and oral care after meals. Patient has been tolerating this well with no repeat aspiration events. 4. History of alcohol use disorder ? Placed on alcohol withdrawal protocol as a precaution but patient did not require any medication during admission. 5. Hyponatremia, improved ? Sodium 127-132 for majority of hospitalization and it appears he has mild chronic hyponatremia. However, sodium up to 140 on 09/03. Recommend repeat labs in 5 to 7 days after discharge to ensure sodium level remains stable. 6. Tobacco use disorder ? Nicotine patch in place per patient request. Discussed cessation on discharge. Chronic medical conditions: ? History of nonobstructive CAD, hypertension, hyperlipidemia: Continue home statin, Coreg and losartan. ? GERD: Continue home PPI. ? History of AAA s/p endovascular stenting ? COPD: Stable, not in acute exacerbation. Continue home inhalers. ? BPH with obstructive symptoms: Continue home Flomax. Total clinical time spent by myself addressing the patient's medical issues, reviewing all the data, and collaborating with patient's care team: 35 minutes. Physical Exam Const alert, oriented x3, no apparent distress and average body habitus Constitutional Narrative: Elderly male, mildly fatigued appearing but otherwise sitting back comfortably in bedside chair, conversing normally and in no acute distress. General Appearance: cooperative and comfortable HEENT normocephalic, head/scalp atraumatic, hearing grossly normal bilaterally, nasal mucous membranes and turbinates normal and moist oral mucous membranes Eyes PERRL, EOMs intact bilaterally and conjunctivae normal Neck full ROM Chest inspection of chest normal Resp normal respiratory effort and no use of accessory muscles Resp Narrative: Breathing comfortably on 2 L nasal cannula at rest. Mild crackles noted in bilateral bases but otherwise no wheezing and good air movement throughout. Cardio regular rate, regular rhythm, no murmurs and peripheral pulses 2+ throughout GI normal to inspection, nondistended, normoactive bowel sounds, soft to palpation, non-tender and non-distended Back/Spine normal ROM Extremity Extremity Narrative: Left hip with dressing and ice pack in place, stable. Skin no rashes or lesions noted Neuro moves all extremities and no focal motor deficits Speech: speech normal Psych mental status grossly normal Weight / BMI Weight Weight: 67.4 kg Body Mass Index (BMI) 23.3 ABG / Lab / Microbiology Data 09/03/24 09:00 09/03/24 09:00 Laboratory: Laboratory Results - last 24 hr 09/03/24 09:00: WBC 10.6, RBC 4.13 L, Hgb 11.6 L, Hct 35.5 L, MCV 86.0, MCH 28.1, MCHC 32.7, RDW Std Deviation 50.7 H, RDW Coeff of Tea 16.2 H, Plt Count 350, MPV 8.6, Immature Gran % (Auto) 2.500 H, Neut % (Auto) 65.2, Lymph % (Auto) 17.2 L, Cloud % (Auto) 12.5 H, Eos % (Auto) 2.1, Baso % (Auto) 0.5, Absolute Neuts (auto) 6.9, Absolute Lymphs (auto) 1.82, Nucleated RBC % 0, Sodium 140, Potassium 3.2 L, Chloride 104, Carbon Dioxide 23.7, Anion Gap 12, BUN 14, Creatinine 0.64 L, Estim Creat Clear Calc 64.26, Est GFR (MDRD) Non-Af 93, BUN/Creatinine Ratio 21.6 H, Glucose 108 H, Calcium 8.8 Microbiology: Microbiology 09/01/24 11:46 Mucosa - Nasopharyngeal Respiratory Panel (PCR) - Final D/C Instructions DC O2, CPAP, BIPAP Needs Home O2 Discharge instructions: No Meaningful Use Info Meaningful Use Meaningful Use Diagnoses (Choose all that apply): None applicable Ischemic Stroke Statin Dosing Therapy Reference: STATIN DOSE THERAPY REFERENCE: * Patients > 75 years receive moderate or high dose statin therapy. * Patients 75 years or YOUNGER should receive HIGH intensity statin dose unless contraindicated. You will be required to document reason for non-treatment if statin daily dose does not meet guidelines. HIGH DOSE STATIN THERAPY DAILY Atorvastatin > than or = to 40 mg Rosuvastatin > than or = to 20 mg Amlodipine + Atorvastatin > than or = to 2.5/40 mg Ezetimibe + Simvastatin 10/80 mg Simvastatin 80mg Discharge Plan Admission Admit Date/Time: 08/29/24 20:59 Primary Reason for Your Visit: Fall with left hip pain Attending Provider: Dio Barajas Primary Care Provider: Roberto Wing Consulting Providers: Haresh Vázquez; Jarrell Briceno; Maya Tejada Discharge Orders/Prescriptions Prescriptions: New acetaminophen 325 mg Tablet 650 mg PO Q6H PRN PRN (Reason: Pain 1-5/10 or Fever) 14 Days Qty: 0 0RF nicotine 14 mg/24 hr Patch 24 Hour 14 mg transdermal DAILY 7 Days Qty: 0 0RF amoxicillin-pot clavulanate 875-125 mg Tablet 1 tab PO BIDCM 5 Days Qty: 9 0RF oxycodone 5 mg Tablet 5 mg PO Q6H PRN PRN (Reason: Pain Score 4-10) 3 Days Qty: 12 0RF enoxaparin 30 mg/0.3 mL Syringe 30 mg subcut BID 25 Days Qty: 0 0RF Continued (DME) Handicap Placard See Rx Instructions .ROUTE .MEDSUPPLY Qty: 1 0RF Rx Instructions: As directed, length of time 3 years omeprazole 40 mg capsule,delayed release(DR/EC) 40 mg PO DAILY Qty: 90 3RF guaifenesin [Mucinex] 1,200 mg tablet extended release 12hr 1,200 mg PO BID Qty: 120 3RF atorvastatin 20 mg Tablet 20 mg PO QHS Qty: 0 0RF albuterol sulfate 2.5 mg /3 mL (0.083 %) Solution For Nebulization 2.5 mg inhalation Q6H PRN (Reason: shortness of breath or wheezing) Qty: 0 0RF carvedilol 3.125 mg tablet 3.125 mg PO DAILY Qty: 90 2RF losartan 50 mg tablet 50 mg PO DAILY Qty: 90 1RF budesonide-formoterol [Symbicort] 160-4.5 mcg/actuation HFA aerosol inhaler 2 puff inhalation BID Qty: 10.2 2RF tamsulosin 0.4 mg capsule See Rx Instructions .ROUTE .COMPLEX Qty: 180 1RF Dose Instruction: TAKE 2 CAPS ORALLY AT BEDTIME FOR 3 MONTHS Rx Instructions: TAKE 2 CAPS ORALLY AT BEDTIME FOR 3 MONTHS Referrals / Follow Up: Roberto Wing MD [Primary Care Provider] - Disposition Disposition (needs filled in before D/C Order can be placed): [facility] Charges/Coding Visit Charges Inpatient E&M: 53119 Disch Hosp >30min
[2024-09-03] MEDS: Carvedilol 3.125 MG TABLET PO (09:40)
[2024-09-03] MEDS: Folic Acid 1 MG Tablet PO (09:40)
[2024-09-03] MEDS: Losartan Potassium 50 MG Tablet PO (09:40)
[2024-09-03] MEDS: Thiamine Hydrochloride 100 MG Tablet PO (09:40)
[2024-09-03] MEDS: guaiFENesin 1,200 MG Tablet 1200 MG PO (09:40)
[2024-09-03] MEDS: Enoxaparin 30 MG/0.3 ML Syringe SC (09:41)
[2024-09-03] MEDS: Pantoprazole Sodium 40 MG Tablet PO (09:41)
[2024-09-03] MEDS: Potassium Chloride Oral Tablet 20 MEQ 40 MEQ PO (09:53)
--- NOTE | 2024-09-03 10:09 | PCM.PN.HOSP ---
Reason for Visit Reason for Visit: Diagnoses Hypo-osmolality and hyponatremia (08/29/24) Alcohol abuse, uncomplicated (08/29/24) Other chronic pain (08/29/24) Chronic obstructive pulmonary disease, unspecified (08/29/24) Unspecified osteoarthritis, unspecified site (08/29/24) Spinal stenosis, lumbar region with neurogenic claudication (08/29/24) Dorsalgia, unspecified (08/29/24) Fracture of unspecified part of neck of left femur, initial encounter for closed fracture (08/29/24) Tobacco use (08/29/24) Subjective Subjective Saw patient at bedside this morning. Patient was sitting back comfortably in bedside chair, conversing normally and in no acute distress. He was breathing comfortably on 2 L nasal cannula at rest. She denied any shortness of breath today. Denies any hip pain at rest this morning. No other acute concerns at this time. Objective Data Objective Data Vital Signs: Vital Signs Temp Pulse Resp BP Pulse Ox O2 Del Method O2 Flow Rate 97.9 F 104 H 16 105/64 96 Nasal Cannula 2 09/03/24 09:28 09/03/24 09:28 09/03/24 09:28 09/03/24 09:28 09/03/24 09:28 09/03/24 09:30 09/03/24 09:30 Oxygen Flow Rate (L/min) 2 Oxygen Delivery Method Nasal Cannula Weight: 67.4 kg Body Mass Index (BMI) 23.3 Intake & Output: Intake and Output for Last 24 Hours 09/01/24 09/02/24 09/03/24 23:59 23:59 23:59 Intake Total 636 / 636 1286 / 1286 224 / 224 Output Total 800 / 800 900 / 1050 450 / 450 Balance -164 / -164 386 / 236 -226 / -226 Lab / Micro Data 09/03/24 09:00 09/03/24 09:00 Labs: Laboratory Results - last 24 hr 09/03/24 09:00: WBC 10.6, RBC 4.13 L, Hgb 11.6 L, Hct 35.5 L, MCV 86.0, MCH 28.1, MCHC 32.7, RDW Std Deviation 50.7 H, RDW Coeff of Tea 16.2 H, Plt Count 350, MPV 8.6, Immature Gran % (Auto) 2.500 H, Neut % (Auto) 65.2, Lymph % (Auto) 17.2 L, Walker % (Auto) 12.5 H, Eos % (Auto) 2.1, Baso % (Auto) 0.5, Absolute Neuts (auto) 6.9, Absolute Lymphs (auto) 1.82, Nucleated RBC % 0, Sodium 140, Potassium 3.2 L, Chloride 104, Carbon Dioxide 23.7, Anion Gap 12, BUN 14, Creatinine 0.64 L, Estim Creat Clear Calc 64.26, Est GFR (MDRD) Non-Af 93, BUN/Creatinine Ratio 21.6 H, Glucose 108 H, Calcium 8.8 Micro: Microbiology 09/01/24 11:46 Mucosa - Nasopharyngeal Respiratory Panel (PCR) - Final Physical Exam Const alert, oriented x3, no apparent distress and average body habitus Constitutional Narrative: Elderly male, mildly fatigued appearing but otherwise sitting back comfortably in bedside chair, conversing normally and in no acute distress. General Appearance: cooperative and comfortable HEENT normocephalic, head/scalp atraumatic, hearing grossly normal bilaterally, nasal mucous membranes and turbinates normal and moist oral mucous membranes Eyes PERRL, EOMs intact bilaterally and conjunctivae normal Neck full ROM Chest inspection of chest normal Resp normal respiratory effort and no use of accessory muscles Resp Narrative: Breathing comfortably on 2 L nasal cannula at rest. Mild crackles noted in bilateral bases but otherwise no wheezing and good air movement throughout. Cardio regular rate, regular rhythm, no murmurs and peripheral pulses 2+ throughout GI normal to inspection, nondistended, normoactive bowel sounds, soft to palpation, non-tender and non-distended Back/Spine normal ROM Extremity Extremity Narrative: Left hip with dressing and ice pack in place, stable. Skin no rashes or lesions noted Neuro moves all extremities and no focal motor deficits Speech: speech normal Psych mental status grossly normal Assessment & Plan Assessment/Plan (1) Closed fracture of left hip: QUALIFIERS: Encounter type: initial encounter Qualified Code(s): S72.002A - Fracture of unspecified part of neck of left femur, initial encounter for closed fracture PLAN: Plan Patient is an 84-year-old male who presented [facility] ED on 08/29/2024 with left hip pain after a mechanical fall. 1. Left hip subcapital fracture due to mechanical fall with acute on chronic debility ? Orthopedic surgery following. PT/OT/case management following. S/p left hip hemiarthroplasty with Dr. Vázquez on 08/30. Tolerated procedure well, no intraoperative complications. Postoperative course complicated by hypoxia with concern for aspiration pneumonia as noted below, otherwise doing well. Per orthopedics, weightbearing as tolerated. Continue pain control with Tylenol as needed and oxycodone as needed. Medically ready for discharge to TCU on 09/03, awaiting pre-CERT. 2. Hypoxia with concern for aspiration pneumonia, improving ? Had concern for aspiration event on 09/01 leading to hypoxia requiring up to 6 L nasal cannula. Chest x-ray showed prominent right lower lobe airspace disease superimposed on chronic lung changes concerning for aspiration pneumonitis versus pneumonia. Has now been weaned to 1 L nasal cannula. Will de-escalate from Unasyn to Augmentin on 09/03 with plan for 7-day course of antibiotics total. 3. Moderate oropharyngeal dysphagia ? Speech therapy following. MBSS on 09/01 consistent with moderate oropharyngeal dysphagia. Diet per speech therapy of soft and bite-size textures with mildly thick liquids and oral care after meals. Patient has been tolerating this well with no repeat aspiration events. 4. History of alcohol use disorder ? Placed on alcohol withdrawal protocol as a precaution but patient has not required any medication since admission. Continue adjunct of medications as needed for symptomatic relief. 5. Hyponatremia, improved ? Sodium 127-132 for majority of hospitalization and it appears he has mild chronic hyponatremia. However, sodium up to 140 on 09/03. Recommend repeat labs in 5 to 7 days after discharge to ensure sodium level remains stable. 6. Tobacco use disorder ? Nicotine patch in place per patient request. Discussed cessation on discharge. Chronic medical conditions: ? History of nonobstructive CAD, hypertension, hyperlipidemia: Continue home statin, Coreg and losartan. ? GERD: Continue home PPI. ? History of AAA s/p endovascular stenting ? COPD: Stable, not in acute exacerbation. Continue home inhalers. ? BPH with obstructive symptoms: Continue home Flomax. DVT prophylaxis: Lovenox 30 mg twice daily x 30 days per orthopedics CODE STATUS: Full code, unverified Expected disposition: TCU, medically ready for discharge on 09/03, awaiting pre-CERT Total clinical time spent by myself addressing the patient's medical issues, reviewing all the data, and collaborating with patient's care team: 35 minutes. Charges/Coding Visit Charges Inpatient E&M: 00634 Subs Hosp L2
--- NOTE | 2024-09-03 11:18 | CASEMGMT ---
Social Work Precert has been obtained for pt to discharge to TCU. Physician updated and pt is ready for dc today. Discharge orders faxed to TCU and Sydney in TCU notified of dc. SW met with pt and informed of dc plan and he is agreeable. With pt permission, phone call to pt and VM left with discharge plan. Disposition: TCU, skilled level of care BARBIE Duffy
[2024-09-03 13:28] VITALS: BP 146/83; PULSE 84; RESP 16; TEMP 36.6; O2SAT 96
== END 2024-09-03 14:27 | disposition skilled nursing facility (03) | DRG 521 ==
LOC: ED 20:47 → MS3 21:15
PROVIDERS: Anesthesiology; Orthopaedic Surgery Sports Medicine; Physician Assistant; Student in an Organized Health Care Education/Training Program; Admitting Provider Internal Medicine; Emergency Provider Emergency Medicine; PCP Internal Medicine; Visit Provider Hospitalist
PROC: (CPT 27125; principal; 2024-08-30 07:00)
DX: S72.002A Fracture of unspecified part of neck of left femur, initial encounter for closed fracture (principal); J69.0 Pneumonitis due to inhalation of food and vomit; E87.1 Hypo-osmolality and hyponatremia; J95.89 Other postprocedural complications and disorders of respiratory system, not elsewhere classified; J44.9 Chronic obstructive pulmonary disease, unspecified; F10.10 Alcohol abuse, uncomplicated; I10 Essential (primary) hypertension; Z95.828 Presence of other vascular implants and grafts; S09.90XA Unspecified injury of head, initial encounter; E78.5 Hyperlipidemia, unspecified; M48.062 Spinal stenosis, lumbar region with neurogenic claudication; F17.210 Nicotine dependence, cigarettes, uncomplicated; K21.9 Gastro-esophageal reflux disease without esophagitis; M19.90 Unspecified osteoarthritis, unspecified site; I25.10 Atherosclerotic heart disease of native coronary artery without angina pectoris; I25.5 Ischemic cardiomyopathy; W01.198A Fall on same level from slipping, tripping and stumbling with subsequent striking against other object, initial encounter; R13.12 Dysphagia, oropharyngeal phase; Z79.51 Long term (current) use of inhaled steroids; R09.02 Hypoxemia; Z96.641 Presence of right artificial hip joint; Z87.81 Personal history of (healed) traumatic fracture; N40.0 Benign prostatic hyperplasia without lower urinary tract symptoms
CPT/HCPCS: 36415; 70450; 71046; 73502; 74230; 80048; 80053; 80061; 80076; 80307; 82607; 82746; 83036; 83735; 83880; 83930; 83935; 84100; 84153; 84443; 84484; 85025; 85610; 85730; 86850; 86900; 86901; 87633; 88305; 88307; 88311; 92526; 92610; 92611; 93005; 94640; 94668; 97162; 97166; 97530; 97535; 99252; 99284; C1776; A4216; G0463; J0295; J2405

== ENCOUNTER 2024-09-03 14:37 | Inpatient (IN) | payer MEDICARE, SELFPAY ==
[2024-09-03 14:40] VITALS: BP 146/77; PULSE 86; RESP 18; TEMP 36.8; O2SAT 95
[2024-09-03 14:46] VITALS: BMI 22.7
[2024-09-03 15:25] VITALS: RESP 18; O2SAT 95
[2024-09-03] MEDS: Amox/Clavulanate 875 MG Tablet PO (17:37)
[2024-09-03] MEDS: Menthol/Lanolin/Calamine/Znox 113 GM Tube 1 APPLIC TOPICAL (17:37)
[2024-09-03 19:35] VITALS: PULSE 94; RESP 20
[2024-09-03] MEDS: Albuterol 2.5 MG/3 ML VIAL.NEB. INHALATION (19:35)
[2024-09-03] MEDS: Budesonide Respules 0.5 MG/2 ML AMPUL.NEB. INHALATION (19:35)
--- NOTE | 2024-09-03 19:56 | PCM.HP.STD ---
HPI - General General Date of Admission: 09/03/24 Date of Service: 09/03/24 Chief Complaint: Here for rehabilitation. HPI Narrative CHITO CORDON, is a 84 Male who presents with followin08/29/2024 [facility] ED lower extremity injury. Fell at restaurant, hit back of head, hit left hip. Unable to walk. X-ray showed left hip fracture.. 08/29/2024 Admit [facility]. Pain control, PT/OT, Prepare for surgery for left hip fracture. Normal saline 70cc per hour for hyponatremia, sodium 127. Recommend alcohol cessation. 08/30/2024 Dr. Vázquez performed left hip hemiarthroplasty. 08/30/2024 Lethargic 2/2 anesthesia. Tylenol, Oxycodone, Morphine IV for pain. Sodium 128, continue gentle IV fluid hydration. 08/31/2024 Pain well controlled, oxygen 4 liters per nasal cannula, incentive spirometry. ST for coughing while taking medications and dysphagia. Hyponatremia is chronic, 2/2 alcohol abuse. [facility] protocol for alcohol abuse. 09/01/2024 Doing well, mild left hip pain. WBAT, PT/OT. 09/02/2024 Oxygen 1 liter per nasal cannula. Unasyn IV for aspiration pneumonia, respiratory panel negative. ST recommended modified barium swallow. Alcohol withdrawal protocol for alcohol abuse.. 09/03/2024 Admit to TCU with debility, here for rehabilitation, strengthening, prior to discharge home with . Resident had uncontrollable diarrhea, c. diff negative. [facility] Medical History (Updated 09/03/24 @ 20:[address] Brando Wynn MD) Preoperative cardiovascular examination Displaced fracture of right femoral neck Macular degeneration Wears dentures Easy bruising History of ulceration Smoker Hoarseness History of echocardiogram History of stress test Right inguinal hernia COPD (chronic obstructive pulmonary disease) Chronic cough BPH (benign prostatic hyperplasia) COVID-19 vaccine series completed Alcohol abuse Syncope Cellulitis of scrotum Scrotal abscess Fecal urgency Spinal stenosis of lumbar region with neurogenic claudication Ischemic cardiomyopathy Iliac artery aneurysm, right Abdominal aortic aneurysm (AAA) Atherosclerotic heart disease of [place] coronary artery without angina pectoris Nicotine dependence Essential (primary) hypertension Gastric ulcer Chronic back pain History of RSV infection Vision problem GERD (gastroesophageal reflux disease) Cataract Bone fracture Back problem Seasonal allergies Home Medications ?Medication ?Instructions ?Recorded ?Last Taken ?Type Handicap Placard #1 ea 12/29/21 Unknown Rx albuterol sulfate 2.5 mg/3 mL 2.5 mg (3 mL) inhalation Q6H PRN 12/12/22 Unknown Rx (0.083 %) solution for nebulization shortness of breath or wheezing #0 mL atorvastatin 20 mg tablet 20 mg PO QHS Cholesterol #0 tabs 12/12/22 Unknown Rx carvedilol 3.125 mg tablet 3.125 mg PO DAILY HEART #90 tabs 01/14/24 Unknown Rx omeprazole 40 mg capsule,delayed 40 mg PO DAILY reflux #90 caps 02/28/24 Unknown Rx release losartan 50 mg tablet 50 mg PO DAILY BLOOD PRRESSURE #90 04/30/24 Unknown Rx tabs budesonide-formoterol HFA 160 2 puff inhalation BID wheezing/SOB 06/08/24 Unknown Rx mcg-4.5 mcg/actuation aerosol #10.2 grams inhaler (Symbicort) guaifenesin 1,200 mg tablet, 1,200 mg PO BID cough #120 tabs 08/28/24 Unknown Rx extended release 12 hr (Mucinex) acetaminophen 325 mg tablet 650 mg (2 x 325 mg) PO Q6H PRN PRN 09/03/24 Unknown Rx Pain 1-5/10 or Fever 14 days #0 tabs amoxicillin 875 mg-potassium 1 tab PO BIDCM infection 5 days #9 09/03/24 Unknown Rx clavulanate 125 mg tablet tabs enoxaparin 30 mg/0.3 mL 30 mg (0.3 mL) subcut BID blood 09/03/24 Unknown Rx subcutaneous syringe thinner 25 days #0 mL nicotine 14 mg/24 hr daily 14 mg transdermal DAILY nicotine 09/03/24 Unknown Rx transdermal patch dependence 7 days #0 ea oxycodone 5 mg tablet 5 mg PO Q6H PRN PRN Pain Score 09/03/24 Unknown Rx 4-10 3 days #12 tabs tamsulosin 0.4 mg capsule 0.8 mg PO Q24H BPH 09/03/24 Unknown History Allergy/AdvReac Type Severity Reaction Status Date / Time No Known Allergies Allergy Verified 08/29/24 19:12 Family History Grandfather Cancer Father Brain aneurysm Daughter Hypertension Surgical History (Updated 09/03/24 @ 20:[address] Brando Wynn MD) History of left hip hemiarthroplasty History of right hip hemiarthroplasty History of right inguinal hernia repair History of esophagogastroduodenoscopy (EGD) History of colonoscopy History of back surgery History of left heart catheterization (11/11/13) History of endovascular stent graft for abdominal aortic aneurysm (AAA) (12/11/13) Rupture of biceps tendon Social History household members: spouse housing: house Smoking Status: Current every day smoker tobacco type: cigarettes Tobacco: How many years used: 62 alcohol intake: current alcohol intake frequency: 3 or more drinks per day Alcohol type: beer substance use type: does not use what type of physical activity do you participate in: none ROS Constitutional Constitutional: Denies chills, fever(s) or weight gain ENT HEENT: Denies headache(s), nasal congestion or nasal discharge Cardiovascular Cardiovascular: Denies chest pain or palpitations Respiratory/Chest Respiratory/Chest: Denies cough, excessive phlegm production or shortness of breath with exertion Gastrointestinal Gastrointestinal: Denies abdominal pain, nausea or vomiting Genitourinary Genitourinary: Denies dysuria Musculoskeletal Musculoskeletal: Denies joint pain or joint swelling Integumentary Integumentary: Denies rash or wounds Neurologic Neurologic: Denies focal weakness, numbness or tingling Psychiatric Psychiatric: Denies anxiety, auditory hallucinations, depression, homicidal ideation or suicidal ideation Vital Signs Vital Signs Vital Signs: 09/03/24 14:40 09/03/24 15:25 09/03/24 15:50 Temperature 98.2 F Temperature Source Temporal Pulse Rate 86 Pulse Rhythm Regular Pulse Strength Normal (2+) Normal (2+) Respiratory Rate 18 18 Respiratory Effort Normal Non-Labored Respiratory Depth Normal Respiratory Pattern Normal Blood Pressure 146/77 H Blood Pressure Mean 100 Blood Pressure Source Monitor Blood Pressure Position Semi-Fowlers Blood Pressure Location Right Arm Pulse Ox 95 95 Oxygen Delivery Method Room Air Room Air 09/03/24 19:35 Temperature Temperature Source Pulse Rate 94 Pulse Rhythm Pulse Strength Respiratory Rate 20 H Respiratory Effort Respiratory Depth Respiratory Pattern Normal Blood Pressure Blood Pressure Mean Blood Pressure Source Blood Pressure Position Blood Pressure Location Pulse Ox Oxygen Delivery Method Weight Weight: 65.862 kg Body Mass Index (BMI) 22.7 Physical Exam Const alert General Appearance: cooperative HEENT normocephalic Eyes PERRL and EOMs intact bilaterally Neck supple, no JVD and no carotid bruits Resp normal respiratory effort, normal air movement and clear to auscultation bilaterally Cardio regular rate and regular rhythm GI normal to inspection, nondistended, normoactive bowel sounds, non-tender and non-distended Extremity normal capillary refill General Extremity: Negative for edema Skin no rashes or lesions noted General Skin Exam: no breakdown Psych affect normal Appearance: appropriate Results Lab / Micro Data Micro: Microbiology 09/03/24 16:38 Stool Clostridioides difficile (PCR) - Final Assessment & Plan Assessment/Plan (1) Debility: (2) Closed fracture of left hip: QUALIFIERS: Encounter type: initial encounter Qualified Code(s): S72.002A - Fracture of unspecified part of neck of left femur, initial encounter for closed fracture (3) Hyponatremia: (4) Alcohol abuse: (5) Essential (primary) hypertension: (6) Coronary artery disease: (7) GERD (gastroesophageal reflux disease): QUALIFIERS: Esophagitis presence: esophagitis presence not specified Qualified Code(s): K21.9 - Gastro-esophageal reflux disease without esophagitis (8) COPD (chronic obstructive pulmonary disease): QUALIFIERS: COPD type: unspecified COPD Qualified Code(s): J44.9 - Chronic obstructive pulmonary disease, unspecified (9) Macular degeneration: (10) Hyperlipidemia: (11) BPH (benign prostatic hyperplasia): QUALIFIERS: Lower urinary tract symptom detail: nocturia Lower urinary tract symptom presence: symptoms present Qualified Code(s): N40.1 - Benign prostatic hyperplasia with lower urinary tract symptoms; R35.1 - Nocturia (12) Acute respiratory failure with hypoxia: (13) Aspiration pneumonia: (14) Dysphagia: PLAN: Plan 84 year old male with below past medical history hospitalized for left hip fracture, underwent left hip hemiarthroplasty 08/30/[address] Vázquez, postoperative course complicated by hyponatremia, acute respiratory failure with hypoxia, aspiration pneumonia, admitted to TCU with debility, here for rehabilitation, strengthening, prior to discharge home with . Debility - PT/OT. Dysphagia - ST. Pain - Tylenol 1000mg q6 prn pain (1-3), Oxycodone 5mg q4 prn pain (4-10). Bowel - senna/colace 2 tablets bid, Magnesium citrate 300mL po x 1 prn. Adult immunization - Administer pneumonia vaccine, covid vaccine, flu vaccine as appropriate. DVT prophylaxis - Lovenox 30mg sc bid thru 09/28/2024. COPD - Budesonide 0.5mg inhaled Q12, Albuterol 2.5mg q6 wa. Aspiration pneumonia - Augmentin 875mg bid thru 09/07/2024. Hyperlipidemia - Atorvastatin 20mg qhs. Coronary artery disease - Coreg 3.125mg bid, Losartan 50mg daily. Congestion Mucinex 1200mg bid. Skin irritation - Calmoseptine topical bid. Tobacco Abuse - Nicotine 14mg td daily. GERD - Pantoprazole 40mg daily. BPH - Tamsulosin 0.8mg qhs. Alcohol abuse - recommend cessation.
[2024-09-03 20:30] VITALS: BP 137/76; PULSE 95; RESP 16; TEMP 36.7; O2SAT 95
[2024-09-03] MEDS: Acetaminophen 500 MG Tablet 1000 MG PO (20:33)
[2024-09-03] MEDS: oxyCODONE 5 MG Tablet PO (20:33)
[2024-09-03] MEDS: Enoxaparin 30 MG/0.3 ML Syringe SC (20:35)
[2024-09-03] MEDS: Atorvastatin Calcium 20 MG Tablet PO (20:35)
[2024-09-03] MEDS: Tamsulosin HCl 0.4 MG Capsule 0.8 MG PO (20:35)
[2024-09-03] MEDS: guaiFENesin 1,200 MG Tablet 1200 MG PO (20:36)
[2024-09-04] MEDS: Menthol/Lanolin/Calamine/Znox 113 GM Tube 1 APPLIC TOPICAL ×2 (05:28→17:29)
[2024-09-04 05:32] VITALS: BP 148/82; PULSE 90; RESP 16; TEMP 36.9; O2SAT 95
[2024-09-04] MEDS: Albuterol 2.5 MG/3 ML VIAL.NEB. INHALATION (06:53)
[2024-09-04] MEDS: Budesonide Respules 0.5 MG/2 ML AMPUL.NEB. INHALATION (06:54)
[2024-09-04 06:55] VITALS: PULSE 92; RESP 18; O2SAT 92
[2024-09-04 07:08] LABS: Absolute Lymphocyte Count 1.34 X10^3/uL (0.83-4.51); Absolute Neutrophil Count 6.2 X10^3/uL (2.0-7.7); Basophil# 0.04 X10^3/uL; Basophil% 0.4 % (0-1); Eosinophil# 0.36 X10^3/uL; Eosinophils% 3.8 % (0-5); Hematocrit 35.3 % (40-54); Hemoglobin 11.6 g/dL (13.0-16.5); Lymphocyte # 1.34 X10^3/ul (0.83-4.51); Lymphocyte % 14.2 % (19-41); Mean Corp Hgb Conc 32.9 g/dL (32-36); Mean Corpuscular Hgb 27.8 pg (27.0-32.0); Mean Corpuscular Volume 84.7 fL (80-94); Monocyte# 1.08 X10^3/uL; Monocyte% 11.4 % (0-10); NRBC Flagged by Analyzer 0 % (0-5); Neutrophil # 6.24 X10^3/uL (2.7-7.7); Platelet Count 373 K/mm3 (150-450); RBC Distribution Width CV 16.2 % (11.6-14.6); RBC Distribution Width SD 50.7 fl (35.1-43.9); Red Blood Count 4.17 M/mm3 (4.6-6.2); White Blood Count 9.5 K/mm3 (4.4-11.0)
[2024-09-04 07:34] LABS: Anion Gap 12 (5-15); BUN 11 mg/dL (4-19); BUN/Creat Ratio 18.7 RATIO (10-20); Calcium,Total 8.5 mg/dL (7.6-11.0); Carbon Dioxide 23.9 mmol/L (21.0-32.0); Chloride 106 mmol/L (98-108); Creatinine, Serum 0.61 mg/dL (0.70-1.20); EST Glomerular Filtration Rate 95 (>60); Estimated Creatinine Clearance 64.03 ml/min (50-250); Glucose 104 mg/dL (70-99); Potassium 3.4 mmol/L (3.3-5.1); Sodium Level 142 mmol/L (133-145)
--- NOTE | 2024-09-04 07:45 | PHA.CONS_ITS ---
Documented by User: Cecilia Krueger 09/04/24 08:09 TCU RX Drug Regimen Review Subjective/Objective Subjective/Objective Subjective: TCU Admission. 84 YOM presented to the ER with a lower extremity injury. Hospitalized for left hip fracture, underwent left hip hemiarthroplasty 08/30/[address] Vázquez, postoperative course complicated by hyponatremia, acute respiratory failure with hypoxia, aspiration pneumonia. Admitted to TCU with debility for strengthening and rehabilitation. Objective: Allergies No Known Allergies Allergy (Verified 08/29/24 19:12) Current Medications Generic Name Dose Route Start Last Admin Trade Name Freq PRN Reason Stop Dose Admin Acetaminophen 1,000 mg 09/03/24 20:14 09/03/24 20:33 Acetaminophen 500 Mg Tablet PO 1,000 mg Q6H PRN PRN Administration Pain Score 1-5 Albuterol Sulfate 2.5 mg 09/03/24 15:15 09/04/24 06:53 Albuterol 2.5 Mg/3 Ml Vial.Neb. INHALATION 2.5 mg Q6HWA.RT VIDHYA Administration Amoxicillin/Clavulanate Potassium 875 mg 09/03/24 17:00 09/03/24 17:37 Amox/Clavulanate 875 Mg Tablet PO 09/07/24 17:01 875 mg BIDCM VIDHYA Administration Atorvastatin Calcium 20 mg 09/03/24 22:00 09/03/24 20:35 Atorvastatin Calcium 20 Mg Tablet PO 20 mg QHS VIDHYA Administration Budesonide 0.5 mg 09/03/24 15:15 09/04/24 06:54 Budesonide Respules 0.5 Mg/2 Ml Ampul.Neb. INHALATION 0.5 mg Q12H.RT VIDHYA Administration Calamine/Phenol 1 applic 09/03/24 18:00 09/04/24 05:28 Menthol/Lanolin/Calamine/Znox 113 Gm Tube TOPICAL 1 applic 0600,1800 VIDHYA Administration Protocol Carvedilol 3.125 mg 09/04/24 08:00 Carvedilol 3.125 Mg Tablet PO BIDCM VIDHYA Enoxaparin Sodium 30 mg 09/03/24 22:00 09/03/24 20:35 Enoxaparin 30 Mg/0.3 Ml Syringe SC 09/28/24 22:01 30 mg BID VIDHYA Administration Guaifenesin 1,200 mg 09/03/24 22:00 09/03/24 20:36 Guaifenesin 1,200 Mg Tablet PO 1,200 mg BID VIDHYA Administration Losartan Potassium 50 mg 09/04/24 10:00 Losartan Potassium 50 Mg Tablet PO DAILY [facility] Protocol Magnesium Citrate 300 ml 09/03/24 14:57 Magnesium Citrate 300 Ml PO X1 PRN Constipation Nicotine 14 mg 09/04/24 10:00 Nicotine 14 Mg Patch TD DAILY [facility] Oxycodone HCl 5 mg 09/03/24 20:15 09/03/24 20:33 Oxycodone 5 Mg Tablet PO 5 mg Q4H PRN PRN Administration Pain Score 4-10 Pantoprazole Sodium 40 mg 09/04/24 10:00 Pantoprazole Sodium 40 Mg Tablet PO DAILY [facility] Polyethylene Glycol 17 gm 09/04/24 10:00 Polyethylene Glycol 3350 17 Gm Packet PO DAILY [facility] Senna/Docusate Sodium 1 tablet 09/03/24 22:00 09/03/24 20:37 Senna/Docusate Sodium 1 Tablet PO Not Given BID [facility] Sodium Chloride 10 - 40 ml 09/03/24 15:02 0.9% Saline Lock 10 Ml Syringe IV UD PRN SALINE FLUSH Tamsulosin HCl 0.8 mg 09/03/24 22:00 09/03/24 20:35 Tamsulosin Hcl 0.4 Mg Capsule PO 0.8 mg QHS VIDHYA Administration Tuberculin PPD 0.1 ml 09/04/24 10:00 Tuberculin,Purif.Prot.Deriv. 50 Tu/Ml Vial ID 09/04/24 10:01 X1 ONE Tuberculin PPD 0.1 ml 09/11/24 10:00 Tuberculin,Purif.Prot.Deriv. 50 Tu/Ml Vial ID 09/11/24 10:01 X1 ONE Problem List Dysphagia (Acute) Aspiration pneumonia (Acute) Acute respiratory failure with hypoxia (Acute) Hyperlipidemia (Acute) Macular degeneration (Acute) Essential (primary) hypertension (Acute) Alcohol abuse (Acute) Hyponatremia (Acute) Closed fracture of left hip (Acute) Coronary artery disease (Acute) Debility (Acute) GERD (gastroesophageal reflux disease) (Chronic) COPD (chronic obstructive pulmonary disease) (Chronic) BPH (benign prostatic hyperplasia) (Chronic) Vital Signs Temp Pulse Resp BP Pulse Ox O2 Del Method O2 Flow Rate 98.5 F 92 18 148/82 H 92 Room Air 2 09/04/24 05:32 09/04/24 06:55 09/04/24 06:55 09/04/24 05:32 09/04/24 06:55 09/04/24 06:55 09/04/24 05:32 Oxygen Flow Rate (L/min) 2 Oxygen Delivery Method Room Air Weight: 65.862 kg Body Mass Index (BMI) 22.7 Sodium 142 mmol/L (133-145) 09/04/24 06:07 Potassium 3.4 mmol/L (3.3-5.1) 09/04/24 06:07 Chloride 106 mmol/L (98-108) 09/04/24 06:07 Carbon Dioxide 23.9 mmol/L (21.0-32.0) 09/04/24 06:07 Anion Gap 12 (5-15) 09/04/24 06:07 BUN 11 mg/dL (4-19) 09/04/24 06:07 Creatinine 0.61 mg/dL (0.70-1.20) L 09/04/24 06:07 Est GFR (MDRD) Non-Af 95 (>60) 09/04/24 06:07 BUN/Creatinine Ratio 18.7 RATIO (10-20) 09/04/24 06:07 Glucose 104 mg/dL (70-99) H 09/04/24 06:07 Assessment/Plan: 1. Pain: acetaminophen 1000mg PO Q6H PRN pain 1-5 and oxycodone 5mg PO Q4H PRN pain 4-10. Resident has had 1 dose of acetaminophen and oxycodone for pain score of 9 in the hip. Please continue to monitor for constipation, PRN usage, constipation, respiratory depression and falls (BEERs). 2. Bowel: senna/docusate 2T PO BID and magnesium citrate 300mL PO x1 PRN constipation. Resident has not had any PRN doses. Please continue to monitor for constipation and PRN usage. Last documented bowel movement was 09/03/24. 3. DVT prophylaxis: enoxaparin 30mg SC BID thru 09/28/24. Please continue to monitor for S/S of bleeding/DVT, hemoglobin (last 11.6g/dL), platelets (last 373,000) and renal function. 4. COPD: fluticasone/salmeterol 232/14mcg 1 inhalation BID and albuterol nebulized solution 2.5mg inhalation Q6H PRN SOB/wheezing. Changed to AirDuo since resident is on TCU per policy. Please continue to monitor for S/S of thrush, HR (last 92), SOB, wheezing, PRN usage (no doses given). Please since mouth with water and spit following AirDuo administration. 5. Aspiration pneumonia/congestion: Augmentin 875mg PO BID thru 09/07/24 and guaifenesin 1200mg PO BID. Please continue to monitor for S/S of infection, diarrhea and renal function. 6. CAD: carvedilol 3.125mg PO BID and losartan 50mg PO daily. Please continue to monitor HR (last 92), BP (last 148/82), renal function and potassium (last 3.4mmol/L). 7. Hyperlipidemia: atorvastatin 20mg PO QHS. Please continue to monitor lipid panel (last 08/30/24), LFTs (last 08/30/24) and muscle pain. 8. GERD: pantoprazole 40mg PO daily. Please continue to monitor for S/S of GERD, diarrhea (BEERs) and magnesium (last 1.6 08/29/24). 9. BPH: tamsulosin 0.8mg PO QHS. Please continue to monitor for S/S of BPH and BP. 10. Tobacco abuse: nicotine patch 14mg TD daily. Please continue to monitor for nicotine cravings (could add gum PRN cravings if needed), topical irritation, HR and nightmares. 11. Skin irritation: Calmoseptine topical bid. Please continue to monitor. Assessment/Plan for indications treated with psychotropic medications: None Medical chart and medication regimen reviewed. The following medication irregularities or issues were identified: None Date Date of Note: 09/04/24 Documented by User: Dr. Brando Wynn MD 09/04/24 08:09 TCU RX Drug Regimen Review Provider Comments Provider responsibility Provider Comments to Recommendations by Pharmacy Agree
[2024-09-04 08:34] VITALS: BP 106/62; PULSE 78; RESP 18; TEMP 36.1; O2SAT 91
[2024-09-04] MEDS: Amox/Clavulanate 875 MG Tablet PO ×2 (08:41→17:29)
[2024-09-04] MEDS: Enoxaparin 30 MG/0.3 ML Syringe SC ×2 (08:42→20:18)
[2024-09-04] MEDS: Carvedilol 3.125 MG TABLET PO ×2 (08:42→17:29)
[2024-09-04] MEDS: Senna/Docusate Sodium 1 Tablet PO (08:43)
[2024-09-04] MEDS: Pantoprazole Sodium 40 MG Tablet PO (08:43)
[2024-09-04] MEDS: guaiFENesin 1,200 MG Tablet 1200 MG PO ×2 (08:43→20:18)
[2024-09-04] MEDS: Losartan Potassium 50 MG Tablet PO (08:47)
[2024-09-04] MEDS: Fluticasone/Salmeterol 232-14 Inhaler 1 PUFF INHALATION ×2 (08:47→20:19)
[2024-09-04] MEDS: 0.9% Saline Lock 10 ML Syringe IV (08:55)
--- NOTE | 2024-09-04 09:21 | NURSING ---
Return Agent Airport Note; Activity Asset: Maura Julian has been on TCU in the past and remains independent in his choice of daily activities. Eliel is legally blind and stated he used to read the news paper and watch tv now he just listens to the TV and his favorite channel is [place]. He is fine with just resting and watching tv when not in therapy. His family will bring him things he may need or want. Staff will remind him of weekly activities, offer in room activties of his choice and respect his right to say NO.
[2024-09-04] MEDS: Tuberculin,Purif.prot.deriv. 50 TU/ML Vial 0.1 ML ID (10:35)
[2024-09-04] MEDS: oxyCODONE 5 MG Tablet PO ×2 (10:35→20:18)
--- NOTE | 2024-09-04 16:32 | CASEMGMT ---
Social Work SW met with patient to complete initial assessment. Pt known to this worker from previous stay. Verified contacts. Pt confirmed code status as full code. Pt states he is in the process of completing advance directives. SW to follow up with on completing during stay. SW educated to [facility] insurance with [employer]D 09/09 and continued stay is not guaranteed with each review. Pt's goal is to return home with . However, he is legally blind and lives in a split level. SW will continue to follow to assist with DC planning. Vicenta Yao PATIENT OBSERVER ASBESTOS WORKER
[2024-09-04 17:34] VITALS: BP 151/81; PULSE 91
[2024-09-04 20:15] VITALS: PULSE 80; O2SAT 92
[2024-09-04] MEDS: Tamsulosin HCl 0.4 MG Capsule 0.8 MG PO (20:19)
[2024-09-04] MEDS: Atorvastatin Calcium 20 MG Tablet PO (20:19)
[2024-09-05] MEDS: Menthol/Lanolin/Calamine/Znox 113 GM Tube 1 APPLIC TOPICAL ×2 (05:45→17:27)
[2024-09-05] MEDS: Pantoprazole Sodium 40 MG Tablet PO (09:18)
[2024-09-05] MEDS: Amox/Clavulanate 875 MG Tablet PO ×2 (09:18→17:27)
[2024-09-05] MEDS: Carvedilol 3.125 MG TABLET PO ×2 (09:18→17:27)
[2024-09-05] MEDS: Losartan Potassium 50 MG Tablet PO (09:18)
[2024-09-05] MEDS: guaiFENesin 1,200 MG Tablet 1200 MG PO ×2 (09:19→20:14)
[2024-09-05] MEDS: Enoxaparin 30 MG/0.3 ML Syringe SC ×2 (09:19→20:12)
[2024-09-05] MEDS: Fluticasone/Salmeterol 232-14 Inhaler 1 PUFF INHALATION ×2 (09:19→20:11)
[2024-09-05 11:10] VITALS: BP 134/73; PULSE 92; RESP 16; TEMP 36.8; O2SAT 98
[2024-09-05 13:30] VITALS: O2SAT 94
[2024-09-05] MEDS: Acetaminophen 500 MG Tablet 1000 MG PO (14:52)
[2024-09-05] MEDS: oxyCODONE 5 MG Tablet PO ×2 (14:52→20:23)
[2024-09-05] MEDS: Tamsulosin HCl 0.4 MG Capsule 0.8 MG PO (20:10)
[2024-09-05] MEDS: Atorvastatin Calcium 20 MG Tablet PO (20:11)
[2024-09-05] MEDS: 0.9% Saline Lock 10 ML Syringe IV (20:15)
[2024-09-06] MEDS: Menthol/Lanolin/Calamine/Znox 113 GM Tube 1 APPLIC TOPICAL ×2 (05:19→16:35)
[2024-09-06 08:50] VITALS: BP 110/60; PULSE 102; RESP 18; TEMP 36.7; O2SAT 99
[2024-09-06] MEDS: Fluticasone/Salmeterol 232-14 Inhaler 1 PUFF INHALATION ×2 (09:14→20:33)
[2024-09-06] MEDS: Carvedilol 3.125 MG TABLET PO ×2 (09:14→16:35)
[2024-09-06] MEDS: Pantoprazole Sodium 40 MG Tablet PO (09:14)
[2024-09-06] MEDS: Amox/Clavulanate 875 MG Tablet PO ×2 (09:14→16:35)
[2024-09-06] MEDS: Enoxaparin 30 MG/0.3 ML Syringe SC ×2 (09:14→20:35)
[2024-09-06] MEDS: guaiFENesin 1,200 MG Tablet 1200 MG PO ×2 (09:14→20:33)
[2024-09-06] MEDS: Losartan Potassium 50 MG Tablet PO (09:14)
[2024-09-06] MEDS: oxyCODONE 5 MG Tablet PO (14:28)
[2024-09-06] MEDS: Tamsulosin HCl 0.4 MG Capsule 0.8 MG PO (20:32)
[2024-09-06] MEDS: Atorvastatin Calcium 20 MG Tablet PO (20:33)
[2024-09-06] MEDS: 0.9% Saline Lock 10 ML Syringe IV (20:36)
[2024-09-07] MEDS: oxyCODONE 5 MG Tablet PO ×3 (00:58→22:43)
[2024-09-07] MEDS: Acetaminophen 500 MG Tablet 1000 MG PO ×3 (04:25→22:43)
[2024-09-07] MEDS: Menthol/Lanolin/Calamine/Znox 113 GM Tube 1 APPLIC TOPICAL ×2 (05:03→16:44)
--- NOTE | 2024-09-07 07:30 | RAD_ITS ---
EXAM: XR Abdomen, 1 View CLINICAL INDICATION: DIARRHEA TECHNIQUE: Frontal supine view of the abdomen/pelvis. COMPARISON: No relevant prior studies available. FINDINGS: GASTROINTESTINAL TRACT: Unremarkable. No dilation. ORGANS: Probable right renal calculi, largest measuring up to 4 mm. BONES/JOINTS: Unremarkable. No acute fracture. RAD/Abdomen Single View IMPRESSION: Right nephrolithiasis. [facility]
[2024-09-07 08:14] VITALS: BP 133/77; PULSE 94; RESP 17; TEMP 36.6; O2SAT 90
[2024-09-07] MEDS: guaiFENesin 1,200 MG Tablet 1200 MG PO ×2 (08:16→20:43)
[2024-09-07] MEDS: Carvedilol 3.125 MG TABLET PO ×2 (08:16→16:44)
[2024-09-07] MEDS: Amox/Clavulanate 875 MG Tablet PO ×2 (08:16→16:44)
[2024-09-07] MEDS: Losartan Potassium 50 MG Tablet PO (08:16)
[2024-09-07] MEDS: Pantoprazole Sodium 40 MG Tablet PO (08:17)
[2024-09-07] MEDS: Enoxaparin 30 MG/0.3 ML Syringe SC ×2 (08:17→20:43)
[2024-09-07] MEDS: Fluticasone/Salmeterol 232-14 Inhaler 1 PUFF INHALATION ×2 (08:18→20:42)
[2024-09-07] MEDS: Loperamide 2 MG Capsule PO (08:28)
--- NOTE | 2024-09-07 08:33 | NURSING ---
offered to assist with oral care so pt can have thin water in 30 minutes, pt states nope, I am going to dehydrate myself and blame the hospital when my family doctor asks me what happened. will update speech therapist. educated pt on the importance of preventing aspiration pneumonia d/t swallowing difficulties at this time.
--- NOTE | 2024-09-07 10:59 | NURSING ---
surgical mepilex removed from LT hip incision, left WIND UP OPERATOR. incision well approx, no redness or drng noted. steristrips intact.
--- NOTE | 2024-09-07 14:36 | NS ---
MST score = 1
--- NOTE | 2024-09-07 14:55 | NURSING ---
Offered covid vaccine, VIS provided. Resident declines.
[2024-09-07 16:47] VITALS: BP 177/79; PULSE 94
[2024-09-07] MEDS: Tamsulosin HCl 0.4 MG Capsule 0.8 MG PO (20:41)
[2024-09-07] MEDS: Atorvastatin Calcium 20 MG Tablet PO (20:43)
[2024-09-08] MEDS: Menthol/Lanolin/Calamine/Znox 113 GM Tube 1 APPLIC TOPICAL ×2 (05:21→17:06)
[2024-09-08 07:47] VITALS: O2SAT 94
[2024-09-08] MEDS: oxyCODONE 5 MG Tablet PO ×2 (09:02→23:39)
[2024-09-08] MEDS: Enoxaparin 30 MG/0.3 ML Syringe SC ×2 (09:03→21:13)
[2024-09-08] MEDS: Carvedilol 3.125 MG TABLET PO ×2 (09:04→17:13)
[2024-09-08] MEDS: Losartan Potassium 50 MG Tablet PO (09:04)
[2024-09-08] MEDS: Fluticasone/Salmeterol 232-14 Inhaler 1 PUFF INHALATION ×2 (09:05→21:13)
[2024-09-08] MEDS: guaiFENesin 1,200 MG Tablet 1200 MG PO ×2 (09:06→21:13)
[2024-09-08] MEDS: Pantoprazole Sodium 40 MG Tablet PO (09:06)
[2024-09-08 09:10] VITALS: BP 100/62; PULSE 102; RESP 18; TEMP 37; O2SAT 91
[2024-09-08 11:13] VITALS: BMI 21.7
--- NOTE | 2024-09-08 14:19 | NURSING ---
Addendum entered by Monique Martinez 09/09/24 11:13: On follow-up resident/ requesting physicians transport be set up. Called and set up, physicians will p/u at 0930. Original Note: in room at bedside, discussed transport options for follow-up with Dr. Vázquez on 09/14/24. and unsure what they'd like to do, ask if RN can follow-up with them tomorrow. Agreed to let them discuss, will f/u tomorrow.
[2024-09-08 15:00] VITALS: PULSE 88; RESP 18; O2SAT 90
--- NOTE | 2024-09-08 16:11 | NURSING ---
Addendum entered by Krishna Moe 09/08/24 16:14: HEELS ELEVATED UP ON PILLOWS,RN AWARE Original Note: FOUND PRESSURE SORE TO LT HEEL AT ASSESSMENT. WOUND CONSULT IN.
[2024-09-08 17:15] VITALS: BP 115/70; PULSE 86
[2024-09-08] MEDS: Atorvastatin Calcium 20 MG Tablet PO (21:13)
[2024-09-08] MEDS: Tamsulosin HCl 0.4 MG Capsule 0.8 MG PO (21:13)
[2024-09-09] MEDS: Menthol/Lanolin/Calamine/Znox 113 GM Tube 1 APPLIC TOPICAL ×2 (05:07→16:56)
[2024-09-09] MEDS: Loperamide 2 MG Capsule PO (09:21)
[2024-09-09] MEDS: oxyCODONE 5 MG Tablet PO ×2 (09:21→16:55)
[2024-09-09] MEDS: Enoxaparin 30 MG/0.3 ML Syringe SC ×2 (09:22→22:01)
[2024-09-09] MEDS: Fluticasone/Salmeterol 232-14 Inhaler 1 PUFF INHALATION ×2 (09:23→22:02)
[2024-09-09] MEDS: guaiFENesin 1,200 MG Tablet 1200 MG PO ×2 (09:24→22:02)
[2024-09-09] MEDS: Pantoprazole Sodium 40 MG Tablet PO (09:24)
[2024-09-09 09:29] VITALS: BP 96/60; PULSE 84; RESP 18; TEMP 36.8; O2SAT 94
--- NOTE | 2024-09-09 10:37 | CASEMGMT ---
Social Work IDT met with patient and for care plan meeting. Discussed patient's progress in PT/OT/ST/SN. Educated to [facility] insurance with NRD 09/09 and continued stay is not guaranteed with each review. Provided pt/family with written communication of insurance process and copay coverage during stay. IDT discussed patient is noncompliant with ST - see ST notes for details. Pt is max-total x2 assist for balance and safety. Pt has poor safety awareness and insight to deficits. IDT is recommending AL or SNF to assist with pt's LOC. Inquired about the 's ability to care for pt at home. agreed she cannot care for pt currently and he needs to be more independent. Since timeframe and progress is unknown, pt/ agreed to planning alternate DC plan. SW educated to AL and SNF, OOP cost or possible need for MATT for SNF. Provided with MATT checklist and AL list. Also provided list of SNFs in [facility] with insurance, that include quality and resource data via [employer] guide, with SW contact information. to review and notify this worker with outcome. SW will continue to follow for DC planning assistance. Vicenta Yao VENDER CONTROL OFFICER
--- NOTE | 2024-09-09 10:56 | CASEMGMT ---
Social Work SW inquired about advance directives. Pt does not have any documents completed. SW offered to complete during stay, if elected. Vicenta Yao SCHOOL BUS DRIVER/TEACHER ASSISTANT SOIL FERTILITY EXTENSION SPECIALIST
[2024-09-09] MEDS: Carvedilol 3.125 MG TABLET PO ×2 (11:13→16:55)
[2024-09-09] MEDS: Losartan Potassium 50 MG Tablet PO (11:14)
[2024-09-09 11:17] VITALS: BP 103/63; PULSE 87
--- NOTE | 2024-09-09 14:02 | WOUNDNOTE ---
wound photo: left heel
--- NOTE | 2024-09-09 14:02 | WOUNDNOTE ---
wound photo: right mari
--- NOTE | 2024-09-09 14:48 | CASEMGMT ---
Social Work- Pt scored 15/15 on BIMS and 0/2 on PHQ9. Pt reports no needs at this time. BARBIE Shay
[2024-09-09 16:58] VITALS: BP 113/64; PULSE 84; O2SAT 93
[2024-09-09 21:50] VITALS: BP 95/55; PULSE 83; PULSE 93; RESP 16; RESP 17; TEMP 37.2; O2SAT 91
[2024-09-09] MEDS: Atorvastatin Calcium 20 MG Tablet PO (22:02)
[2024-09-09] MEDS: Tamsulosin HCl 0.4 MG Capsule 0.8 MG PO (22:02)
[2024-09-10] MEDS: Menthol/Lanolin/Calamine/Znox 113 GM Tube 1 APPLIC TOPICAL ×2 (05:37→17:22)
[2024-09-10 10:37] VITALS: BP 104/54; PULSE 98; RESP 17; TEMP 36.8; O2SAT 90
[2024-09-10] MEDS: Fluticasone/Salmeterol 232-14 Inhaler 1 PUFF INHALATION ×2 (10:40→21:12)
[2024-09-10] MEDS: Carvedilol 3.125 MG TABLET PO ×2 (10:40→17:12)
[2024-09-10] MEDS: Losartan Potassium 50 MG Tablet PO (10:40)
[2024-09-10] MEDS: Enoxaparin 30 MG/0.3 ML Syringe SC ×2 (10:40→21:11)
[2024-09-10] MEDS: Pantoprazole Sodium 40 MG Tablet PO (10:41)
[2024-09-10] MEDS: guaiFENesin 1,200 MG Tablet 1200 MG PO ×2 (10:41→21:12)
[2024-09-10] MEDS: oxyCODONE 5 MG Tablet PO ×3 (12:48→23:39)
[2024-09-10 21:00] VITALS: BP 96/56; PULSE 93; RESP 16; TEMP 37.1; O2SAT 89
[2024-09-10] MEDS: Atorvastatin Calcium 20 MG Tablet PO (21:12)
[2024-09-10] MEDS: Tamsulosin HCl 0.4 MG Capsule 0.8 MG PO (21:12)
[2024-09-10] MEDS: Acetaminophen 500 MG Tablet 1000 MG PO (23:39)
[2024-09-11] MEDS: Menthol/Lanolin/Calamine/Znox 113 GM Tube 1 APPLIC TOPICAL ×2 (05:41→17:09)
[2024-09-11] MEDS: Acetaminophen 500 MG Tablet 1000 MG PO (05:46)
[2024-09-11] MEDS: oxyCODONE 5 MG Tablet PO ×3 (05:46→21:21)
[2024-09-11 06:10] LABS: Absolute Lymphocyte Count 1.48 X10^3/uL (0.83-4.51); Absolute Neutrophil Count 6.7 X10^3/uL (2.0-7.7); Basophil# 0.05 X10^3/uL; Basophil% 0.5 % (0-1); Eosinophil# 0.35 X10^3/uL; Eosinophils% 3.6 % (0-5); Hematocrit 32.2 % (40-54); Hemoglobin 10.6 g/dL (13.0-16.5); Lymphocyte # 1.48 X10^3/ul (0.83-4.51); Lymphocyte % 15.3 % (19-41); Mean Corp Hgb Conc 32.9 g/dL (32-36); Mean Platelet Vol. 9.3 fl (6.2-12.0); Monocyte# 0.96 X10^3/uL; Monocyte% 9.9 % (0-10); NRBC Flagged by Analyzer 0 % (0-5); Neutrophil # 6.73 X10^3/uL (2.7-7.7); Neutrophil % 69.6 % (47-70); Platelet Count 366 K/mm3 (150-450); RBC Distribution Width CV 16.4 % (11.6-14.6); RBC Distribution Width SD 49.9 fl (35.1-43.9); Red Blood Count 3.79 M/mm3 (4.6-6.2); White Blood Count 9.7 K/mm3 (4.4-11.0)
[2024-09-11 07:55] LABS: Anion Gap 10 (5-15); BUN 14 mg/dL (4-19); BUN/Creat Ratio 21.5 RATIO (10-20); Calcium,Total 8.2 mg/dL (7.6-11.0); Chloride 106 mmol/L (98-108); Creatinine, Serum 0.66 mg/dL (0.70-1.20); EST Glomerular Filtration Rate 92 (>60); Estimated Creatinine Clearance 61.25 ml/min (50-250); Glucose 106 mg/dL (70-99); Potassium 3.7 mmol/L (3.3-5.1); Sodium Level 137 mmol/L (133-145)
--- NOTE | 2024-09-11 08:44 | NURSING ---
Tin Plater Note; MDS for 09/10/2024 Complete
[2024-09-11] MEDS: Fluticasone/Salmeterol 232-14 Inhaler 1 PUFF INHALATION ×2 (09:03→21:21)
[2024-09-11] MEDS: Mupirocin Ointment 22gm Tube 1 APPLIC NASAL ×2 (09:03→21:21)
[2024-09-11] MEDS: Enoxaparin 30 MG/0.3 ML Syringe SC ×2 (09:06→21:21)
[2024-09-11] MEDS: guaiFENesin 1,200 MG Tablet 1200 MG PO ×2 (09:07→21:22)
[2024-09-11] MEDS: Pantoprazole Sodium 40 MG Tablet PO (09:07)
[2024-09-11 09:12] VITALS: BP 99/64; PULSE 87; RESP 18; TEMP 36.6; O2SAT 93
[2024-09-11] MEDS: Carvedilol 3.125 MG TABLET PO ×2 (10:29→17:09)
[2024-09-11] MEDS: Tuberculin,Purif.prot.deriv. 50 TU/ML Vial 0.1 ML ID (10:31)
[2024-09-11 10:33] VITALS: BP 104/66
[2024-09-11 10:50] VITALS: PULSE 76; RESP 18; O2SAT 96
[2024-09-11 17:13] VITALS: BP 132/70; PULSE 86
[2024-09-11] MEDS: Atorvastatin Calcium 20 MG Tablet PO (21:21)
[2024-09-11] MEDS: Senna/Docusate Sodium 1 Tablet PO (21:22)
[2024-09-11] MEDS: Tamsulosin HCl 0.4 MG Capsule 0.8 MG PO (21:22)
[2024-09-12] MEDS: Acetaminophen 500 MG Tablet 1000 MG PO ×2 (00:22→22:14)
[2024-09-12] MEDS: oxyCODONE 5 MG Tablet PO ×4 (01:28→22:15)
[2024-09-12] MEDS: Menthol/Lanolin/Calamine/Znox 113 GM Tube 1 APPLIC TOPICAL ×2 (06:58→16:05)
[2024-09-12] MEDS: Fluticasone/Salmeterol 232-14 Inhaler 1 PUFF INHALATION ×2 (09:00→21:57)
[2024-09-12] MEDS: Mupirocin Ointment 22gm Tube 1 APPLIC NASAL ×2 (09:00→21:58)
[2024-09-12] MEDS: Carvedilol 3.125 MG TABLET PO ×2 (09:01→16:04)
[2024-09-12] MEDS: guaiFENesin 1,200 MG Tablet 1200 MG PO ×2 (09:02→21:57)
[2024-09-12] MEDS: Pantoprazole Sodium 40 MG Tablet PO (09:02)
[2024-09-12] MEDS: Senna/Docusate Sodium 1 Tablet PO (09:02)
[2024-09-12] MEDS: Enoxaparin 30 MG/0.3 ML Syringe SC ×2 (09:02→21:57)
[2024-09-12 10:50] VITALS: BP 103/55; PULSE 89; RESP 18; TEMP 36.8; O2SAT 98
[2024-09-12] MEDS: Atorvastatin Calcium 20 MG Tablet PO (21:57)
[2024-09-12] MEDS: Tamsulosin HCl 0.4 MG Capsule 0.8 MG PO (21:57)
[2024-09-12 22:15] VITALS: O2SAT 94
[2024-09-13] MEDS: Menthol/Lanolin/Calamine/Znox 113 GM Tube 1 APPLIC TOPICAL ×2 (05:50→16:26)
[2024-09-13] MEDS: Carvedilol 3.125 MG TABLET PO ×2 (08:48→16:24)
[2024-09-13] MEDS: Enoxaparin 30 MG/0.3 ML Syringe SC ×2 (08:48→22:19)
[2024-09-13] MEDS: Mupirocin Ointment 22gm Tube 1 APPLIC NASAL ×2 (08:48→22:18)
[2024-09-13] MEDS: guaiFENesin 1,200 MG Tablet 1200 MG PO ×2 (08:48→22:19)
[2024-09-13] MEDS: Pantoprazole Sodium 40 MG Tablet PO (08:48)
[2024-09-13] MEDS: Senna/Docusate Sodium 1 Tablet PO ×2 (08:48→22:19)
[2024-09-13] MEDS: Fluticasone/Salmeterol 232-14 Inhaler 1 PUFF INHALATION ×2 (08:49→22:20)
[2024-09-13 10:33] VITALS: BP 102/56; PULSE 97; RESP 18; TEMP 36.8; O2SAT 94
[2024-09-13] MEDS: oxyCODONE 5 MG Tablet PO (16:25)
[2024-09-13] MEDS: Tamsulosin HCl 0.4 MG Capsule 0.8 MG PO (22:18)
[2024-09-13] MEDS: Atorvastatin Calcium 20 MG Tablet PO (22:19)
[2024-09-14] MEDS: Menthol/Lanolin/Calamine/Znox 113 GM Tube 1 APPLIC TOPICAL ×2 (05:06→16:44)
[2024-09-14] MEDS: Carvedilol 3.125 MG TABLET PO ×2 (08:14→16:43)
[2024-09-14] MEDS: Enoxaparin 30 MG/0.3 ML Syringe SC ×2 (10:56→21:44)
[2024-09-14] MEDS: Senna/Docusate Sodium 1 Tablet PO ×2 (10:56→21:46)
[2024-09-14] MEDS: Pantoprazole Sodium 40 MG Tablet PO (10:56)
[2024-09-14] MEDS: Fluticasone/Salmeterol 232-14 Inhaler 1 PUFF INHALATION ×2 (10:57→21:43)
[2024-09-14] MEDS: Mupirocin Ointment 22gm Tube 1 APPLIC NASAL ×2 (11:01→21:39)
[2024-09-14] MEDS: Nystatin Powder 15gm Bottle 1 APPLIC TOPICAL ×2 (11:03→21:48)
--- NOTE | 2024-09-14 11:05 | NURSING ---
Off unit with physician's transport at 0940- back to unit around 1045. No new orders, xrays completed at visit.
[2024-09-14] MEDS: Acetaminophen 500 MG Tablet 1000 MG PO (14:00)
[2024-09-14] MEDS: oxyCODONE 5 MG Tablet PO (14:01)
[2024-09-14 16:00] VITALS: BP 98/64; PULSE 78; RESP 16; TEMP 36.9; O2SAT 94
[2024-09-14 21:00] VITALS: PULSE 82; O2SAT 94
[2024-09-14] MEDS: Tamsulosin HCl 0.4 MG Capsule 0.8 MG PO (21:42)
[2024-09-14] MEDS: guaiFENesin 1,200 MG Tablet 1200 MG PO (21:44)
[2024-09-14] MEDS: Atorvastatin Calcium 20 MG Tablet PO (21:44)
[2024-09-15] MEDS: Menthol/Lanolin/Calamine/Znox 113 GM Tube 1 APPLIC TOPICAL ×2 (05:09→16:31)
[2024-09-15] MEDS: oxyCODONE 5 MG Tablet PO ×2 (05:10→19:35)
[2024-09-15 07:40] VITALS: BP 127/75; PULSE 88; RESP 18; TEMP 36.9; O2SAT 92
[2024-09-15] MEDS: Carvedilol 3.125 MG TABLET PO ×2 (07:42→16:31)
[2024-09-15] MEDS: guaiFENesin 1,200 MG Tablet 1200 MG PO ×2 (07:42→20:50)
[2024-09-15] MEDS: Pantoprazole Sodium 40 MG Tablet PO (07:42)
[2024-09-15] MEDS: Enoxaparin 30 MG/0.3 ML Syringe SC ×2 (07:42→20:50)
[2024-09-15] MEDS: Mupirocin Ointment 22gm Tube 1 APPLIC NASAL ×2 (07:43→20:51)
[2024-09-15] MEDS: Fluticasone/Salmeterol 232-14 Inhaler 1 PUFF INHALATION ×2 (07:43→20:50)
[2024-09-15] MEDS: Nystatin Powder 15gm Bottle 1 APPLIC TOPICAL ×2 (07:43→20:50)
[2024-09-15 14:00] VITALS: BMI 21.7
--- NOTE | 2024-09-15 15:20 | WOUNDNOTE ---
wound photo: left heel
[2024-09-15] MEDS: Atorvastatin Calcium 20 MG Tablet PO (20:50)
[2024-09-15] MEDS: Tamsulosin HCl 0.4 MG Capsule 0.8 MG PO (20:50)
[2024-09-15] MEDS: Acetaminophen 500 MG Tablet 1000 MG PO (20:56)
[2024-09-16] MEDS: Menthol/Lanolin/Calamine/Znox 113 GM Tube 1 APPLIC TOPICAL ×2 (05:59→17:25)
[2024-09-16] MEDS: oxyCODONE 5 MG Tablet PO (07:44)
[2024-09-16] MEDS: Fluticasone/Salmeterol 232-14 Inhaler 1 PUFF INHALATION ×2 (07:44→21:02)
[2024-09-16] MEDS: Carvedilol 3.125 MG TABLET PO ×2 (07:45→17:23)
[2024-09-16] MEDS: guaiFENesin 1,200 MG Tablet 1200 MG PO ×2 (07:45→21:03)
[2024-09-16] MEDS: Enoxaparin 30 MG/0.3 ML Syringe SC ×2 (07:46→21:03)
[2024-09-16] MEDS: Pantoprazole Sodium 40 MG Tablet PO (07:46)
[2024-09-16] MEDS: Nystatin Powder 15gm Bottle 1 APPLIC TOPICAL ×2 (07:46→21:03)
[2024-09-16 07:53] VITALS: BP 123/77; PULSE 85; RESP 18; O2SAT 93
--- NOTE | 2024-09-16 08:46 | CASEMGMT ---
Addendum entered by Vicenta Yao 09/16/24 16:05: SW received call from stating she spoke with pt and pt selected SNFs: [facility] and [facility]. SW inquired about MATT. still uncertain if she can cover costs. SW offered to place referral to [facility] to discuss further about MATT eligibility. agreed. Email referral sent to Cristy at [facility]. Original Note: Social Work SW phoned to follow up on SNF preferences and the MATT checklist. stated she hasn't looked at it yet. SW encouraged to review the documents as insurance update is this date and they only give a 3-day notice, and pt can DC on/over a weekend. SW requested follow up with this worker by the end of the week. expressed understanding and agreed. Vicenta Yao PLASTICS BENCH MECHANIC FRACTIONATION PLANT SUPERVISOR
--- NOTE | 2024-09-16 09:22 | MDS.RN ---
Information for the MDS was obtained from review of the clinical record, interview of resident, staff, and direct observation of resident?s care.
[2024-09-16 15:05] VITALS: PULSE 82; RESP 18; O2SAT 94
[2024-09-16 17:26] VITALS: BP 119/75; PULSE 82
[2024-09-16] MEDS: Tamsulosin HCl 0.4 MG Capsule 0.8 MG PO (21:02)
[2024-09-16] MEDS: Atorvastatin Calcium 20 MG Tablet PO (21:03)
[2024-09-17] MEDS: Menthol/Lanolin/Calamine/Znox 113 GM Tube 1 APPLIC TOPICAL ×2 (05:30→17:13)
[2024-09-17] MEDS: Fluticasone/Salmeterol 232-14 Inhaler 1 PUFF INHALATION ×2 (09:07→20:15)
[2024-09-17] MEDS: Nystatin Powder 15gm Bottle 1 APPLIC TOPICAL ×2 (09:08→20:14)
[2024-09-17] MEDS: Carvedilol 3.125 MG TABLET PO ×2 (09:09→17:16)
[2024-09-17] MEDS: guaiFENesin 1,200 MG Tablet 1200 MG PO ×2 (09:09→20:14)
[2024-09-17] MEDS: Pantoprazole Sodium 40 MG Tablet PO (09:09)
[2024-09-17] MEDS: Enoxaparin 30 MG/0.3 ML Syringe SC ×2 (09:10→20:13)
[2024-09-17 09:15] VITALS: BP 101/57; PULSE 93; RESP 18; O2SAT 94
[2024-09-17 10:25] VITALS: PULSE 86; RESP 16; O2SAT 95
--- NOTE | 2024-09-17 13:32 | CASEMGMT ---
[facility] and he is over assets and over income. Pt would pay OOP for SNF. APOLINAR sent referrals to [facility] and [facility] via [facility]. Vicenta Yao MSW SECOND OFFICER
[2024-09-17 15:11] VITALS: TEMP 36.7
[2024-09-17] MEDS: oxyCODONE 5 MG Tablet PO (15:47)
[2024-09-17 17:18] VITALS: BP 111/67; PULSE 64
[2024-09-17] MEDS: Atorvastatin Calcium 20 MG Tablet PO (20:13)
[2024-09-17] MEDS: Tamsulosin HCl 0.4 MG Capsule 0.8 MG PO (20:13)
[2024-09-18] MEDS: Menthol/Lanolin/Calamine/Znox 113 GM Tube 1 APPLIC TOPICAL ×2 (05:25→17:01)
[2024-09-18 06:04] LABS: Absolute Neutrophil Count 3.3 X10^3/uL (2.0-7.7); Basophil# 0.04 X10^3/uL; Basophil% 0.7 % (0-1); Eosinophil# 0.17 X10^3/uL; Eosinophils% 2.9 % (0-5); Hematocrit 34.5 % (40-54); Hemoglobin 11.3 g/dL (13.0-16.5); Lymphocyte % 25.2 % (19-41); Mean Corp Hgb Conc 32.8 g/dL (32-36); Mean Corpuscular Hgb 27.6 pg (27.0-32.0); Mean Corpuscular Volume 84.4 fL (80-94); Monocyte# 0.89 X10^3/uL; Monocyte% 14.9 % (0-10); NRBC Flagged by Analyzer 0 % (0-5); Neutrophil # 3.34 X10^3/uL (2.7-7.7); Platelet Count 396 K/mm3 (150-450); RBC Distribution Width CV 16.6 % (11.6-14.6); RBC Distribution Width SD 50.3 fl (35.1-43.9); Red Blood Count 4.09 M/mm3 (4.6-6.2)
[2024-09-18 06:42] LABS: BUN 11 mg/dL (4-19); Calcium,Total 8.6 mg/dL (7.6-11.0); Chloride 104 mmol/L (98-108); EST Glomerular Filtration Rate 95 (>60); Sodium Level 135 mmol/L (133-145)
[2024-09-18 08:09] VITALS: BP 90/62; PULSE 104; RESP 16; TEMP 36.5; O2SAT 91
[2024-09-18] MEDS: guaiFENesin 1,200 MG Tablet 1200 MG PO ×2 (08:13→21:37)
[2024-09-18] MEDS: Pantoprazole Sodium 40 MG Tablet PO (08:13)
[2024-09-18] MEDS: Enoxaparin 30 MG/0.3 ML Syringe SC ×2 (08:13→21:38)
[2024-09-18] MEDS: Fluticasone/Salmeterol 232-14 Inhaler 1 PUFF INHALATION ×2 (08:13→21:35)
[2024-09-18] MEDS: Nystatin Powder 15gm Bottle 1 APPLIC TOPICAL ×2 (08:14→21:37)
[2024-09-18 09:37] VITALS: BP 92/58; PULSE 91
--- NOTE | 2024-09-18 09:42 | NURSING ---
dr liu notified of pt BP 92/58 HR 91. Held coreg per MD order & pt refusing, states I dont take it at home when it's low, I call my doc and let them know, they ask me why and I tell them my Blood pressure low
[2024-09-18 13:53] LABS: Anion Gap 11 (5-15); BUN/Creat Ratio 9.2 RATIO (10-20); Carbon Dioxide 19.8 mmol/L (21.0-32.0); Creatinine, Serum 1.19 mg/dL (0.70-1.20); Glucose 118 mg/dL (70-99)
[2024-09-18] MEDS: Carvedilol 3.125 MG TABLET PO (17:02)
[2024-09-18 17:03] VITALS: BP 108/71; PULSE 82
[2024-09-18] MEDS: oxyCODONE 5 MG Tablet PO (18:16)
[2024-09-18 20:00] VITALS: PULSE 72; O2SAT 92
[2024-09-18] MEDS: Atorvastatin Calcium 20 MG Tablet PO (21:36)
[2024-09-18] MEDS: Tamsulosin HCl 0.4 MG Capsule 0.8 MG PO (21:36)
[2024-09-19] MEDS: Menthol/Lanolin/Calamine/Znox 113 GM Tube 1 APPLIC TOPICAL ×2 (05:30→16:49)
[2024-09-19 06:50] VITALS: PULSE 80; O2SAT 93
[2024-09-19] MEDS: Acetaminophen 500 MG Tablet 1000 MG PO (08:00)
[2024-09-19] MEDS: guaiFENesin 1,200 MG Tablet 1200 MG PO ×2 (08:03→21:02)
[2024-09-19] MEDS: Carvedilol 3.125 MG TABLET PO ×2 (08:03→16:49)
[2024-09-19] MEDS: Nystatin Powder 15gm Bottle 1 APPLIC TOPICAL ×2 (08:04→21:03)
[2024-09-19] MEDS: Fluticasone/Salmeterol 232-14 Inhaler 1 PUFF INHALATION ×2 (08:04→21:03)
[2024-09-19] MEDS: Pantoprazole Sodium 40 MG Tablet PO (08:05)
[2024-09-19] MEDS: Enoxaparin 30 MG/0.3 ML Syringe SC ×2 (08:08→21:02)
[2024-09-19 08:15] VITALS: BP 116/74; PULSE 90; RESP 18; TEMP 37.1; O2SAT 92
--- NOTE | 2024-09-19 15:33 | NURSING ---
PT SAT UP IN RECLINER FOR A FEW HOURS AND TOLERATED WELL.
[2024-09-19] MEDS: oxyCODONE 5 MG Tablet PO (16:52)
[2024-09-19 16:54] VITALS: BP 121/72; PULSE 76
[2024-09-19] MEDS: Atorvastatin Calcium 20 MG Tablet PO (21:02)
[2024-09-19] MEDS: Tamsulosin HCl 0.4 MG Capsule 0.8 MG PO (21:02)
[2024-09-20 04:05] VITALS: RESP 17
[2024-09-20] MEDS: oxyCODONE 5 MG Tablet PO ×2 (04:24→15:34)
[2024-09-20] MEDS: Fluticasone/Salmeterol 232-14 Inhaler 1 PUFF INHALATION ×2 (08:19→21:02)
[2024-09-20] MEDS: Carvedilol 3.125 MG TABLET PO ×2 (08:21→17:08)
[2024-09-20] MEDS: Nystatin Powder 15gm Bottle 1 APPLIC TOPICAL ×2 (08:22→21:08)
[2024-09-20] MEDS: guaiFENesin 1,200 MG Tablet 1200 MG PO ×2 (08:22→21:01)
[2024-09-20] MEDS: Pantoprazole Sodium 40 MG Tablet PO (08:22)
[2024-09-20] MEDS: Enoxaparin 30 MG/0.3 ML Syringe SC ×2 (08:25→21:01)
[2024-09-20 08:27] VITALS: BP 108/64; PULSE 81; RESP 18; TEMP 36.9; O2SAT 94
[2024-09-20] MEDS: Menthol/Lanolin/Calamine/Znox 113 GM Tube 1 APPLIC TOPICAL (17:08)
[2024-09-20 17:11] VITALS: BP 100/72; PULSE 87; O2SAT 93
[2024-09-20] MEDS: Atorvastatin Calcium 20 MG Tablet PO (21:01)
[2024-09-20] MEDS: Tamsulosin HCl 0.4 MG Capsule 0.8 MG PO (21:01)
[2024-09-21] MEDS: oxyCODONE 5 MG Tablet PO (01:12)
[2024-09-21 08:29] VITALS: BP 103/66; PULSE 96; RESP 18; TEMP 36.9; O2SAT 93
[2024-09-21] MEDS: Enoxaparin 30 MG/0.3 ML Syringe SC ×2 (08:35→20:43)
[2024-09-21] MEDS: Pantoprazole Sodium 40 MG Tablet PO (08:35)
[2024-09-21] MEDS: Fluticasone/Salmeterol 232-14 Inhaler 1 PUFF INHALATION ×2 (08:35→20:42)
[2024-09-21] MEDS: Carvedilol 3.125 MG TABLET PO ×2 (08:35→17:01)
[2024-09-21] MEDS: guaiFENesin 1,200 MG Tablet 1200 MG PO ×2 (08:36→20:43)
[2024-09-21] MEDS: Nystatin Powder 15gm Bottle 1 APPLIC TOPICAL ×2 (08:39→20:44)
[2024-09-21 10:00] VITALS: RESP 18
[2024-09-21] MEDS: Mag Hydrox/Al Hydrox/Simeth 30 ML UDC PO (12:24)
--- NOTE | 2024-09-21 13:58 | WOUNDNOTE ---
wound photo: left heel
--- NOTE | 2024-09-21 14:59 | CASEMGMT ---
Social Work RN reported to SW that pt would like to meet to discuss discharge. SW met with pt and . Pt stating that he would like to discharge home on Saturday. SW inquired about plan for SNF placment and pt and confirm that this plan has been changed and pt is well enough to return home. SW spoke with therapy, who states that while pt has shown improvement over the last week, pt is not ready/safe to return home with . SW met with pt and spouse again and provided update from therapy and discussed level of assist pt currently needs for ADLs, transfers and ambulation. [facility] also [facility] and that update is due on Saturday 09/23 and a last covered day has not been issued yet. Pt and agreeable to continued treatment in TCU at this time, although pt stating he is feeling ready to go home. Both pt and deny need for SNF at time of dc. Pt and would like to go to [facility] at time of dc and states they have all needed DME. APOLINAR will continue to follow for safe DC planning. ABRBIE Duffy
[2024-09-21] MEDS: Acetaminophen 500 MG Tablet 1000 MG PO (17:30)
[2024-09-21] MEDS: Tamsulosin HCl 0.4 MG Capsule 0.8 MG PO (20:42)
[2024-09-21] MEDS: Atorvastatin Calcium 20 MG Tablet PO (20:43)
[2024-09-22] MEDS: oxyCODONE 5 MG Tablet PO ×2 (05:22→15:58)
[2024-09-22] MEDS: Acetaminophen 500 MG Tablet 1000 MG PO (05:23)
[2024-09-22 08:25] VITALS: BP 99/56; PULSE 84; RESP 18; TEMP 36.4; O2SAT 94
[2024-09-22] MEDS: Carvedilol 3.125 MG TABLET PO ×2 (08:58→17:32)
[2024-09-22] MEDS: Fluticasone/Salmeterol 232-14 Inhaler 1 PUFF INHALATION ×2 (08:59→21:42)
[2024-09-22] MEDS: Enoxaparin 30 MG/0.3 ML Syringe SC ×2 (08:59→21:44)
[2024-09-22] MEDS: guaiFENesin 1,200 MG Tablet 1200 MG PO ×2 (09:02→21:43)
[2024-09-22] MEDS: Nystatin Powder 15gm Bottle 1 APPLIC TOPICAL ×2 (09:02→21:44)
[2024-09-22] MEDS: Pantoprazole Sodium 40 MG Tablet PO (09:03)
--- NOTE | 2024-09-22 10:11 | CASEMGMT ---
Addendum entered by Vicenta Yao 09/22/24 15:14: There was a conflict with OT scheduling. SW phoned to reschedule training for 09/24 at 1000. Original Note: Social Work SW spoke with ESCOBAR on pt's progress and pt/'s previous request of DC home. Pt has been making progress and is a one person assist. CRISTAL offered for to attend therapy training to better assess when she can or cannot assist with for DC home. - SW phoned and explained above. agreeable to therapy training. Scheduled for 09/23 at 1000. SW will continue to follow. Vicenta Yao, STELLA BERNSTEINW
[2024-09-22 14:00] VITALS: BMI 20.8
[2024-09-22 15:23] VITALS: BP 100/70; PULSE 72; RESP 16; TEMP 36.8; O2SAT 95
[2024-09-22 16:01] VITALS: BP 121/73; PULSE 82; RESP 18; TEMP 36.6; O2SAT 94
[2024-09-22 20:00] VITALS: PULSE 86; O2SAT 94
[2024-09-22] MEDS: Atorvastatin Calcium 20 MG Tablet PO (21:42)
[2024-09-22] MEDS: Tamsulosin HCl 0.4 MG Capsule 0.8 MG PO (21:42)
[2024-09-23 06:34] VITALS: PULSE 78; O2SAT 92
[2024-09-23] MEDS: Fluticasone/Salmeterol 232-14 Inhaler 1 PUFF INHALATION ×2 (08:54→22:20)
[2024-09-23] MEDS: Enoxaparin 30 MG/0.3 ML Syringe SC ×2 (08:55→22:21)
[2024-09-23] MEDS: guaiFENesin 1,200 MG Tablet 1200 MG PO ×2 (08:56→22:21)
[2024-09-23] MEDS: Nystatin Powder 15gm Bottle 1 APPLIC TOPICAL ×2 (08:57→22:21)
[2024-09-23] MEDS: Pantoprazole Sodium 40 MG Tablet PO (08:57)
[2024-09-23 09:01] VITALS: BP 93/59; PULSE 102; RESP 16; TEMP 36.4; O2SAT 93
[2024-09-23] MEDS: Carvedilol 3.125 MG TABLET PO ×2 (10:08→17:19)
[2024-09-23 10:10] VITALS: BP 102/62
--- NOTE | 2024-09-23 13:17 | SP.MBSS_ITS ---
Modified Barium Swallow Patient Information Study Date: 09/23/24 Study Time: 13:30 Direct Billable Minutes: 120 Total Minutes procedure & reportin Diagnosis: Aspiration PNA, dysphagia, COPD Referring Physician: Brando Wynn Chi Medical History: An 84-year-old male with a significant past medical history was hospitalized for a left hip fracture and underwent a left hip hemiarthroplasty on 08/30/2024, performed by Dr. Vázquez. His postoperative course was complicated by hyponatremia, acute respiratory failure with hypoxia, and aspiration pneumonia. Following these complications, he was transferred to the Transitional Care Unit (TCU) for rehabilitation and strengthening, with the goal of returning home to his . On 09/01/2024, a Modified Barium Swallow Study (MBSS) was completed, recommending soft and bite-sized foods and nectar-thick liquids. 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 The patient has been actively participating in skilled speech therapy (ST) targeting oropharyngeal dysphagia, learning compensatory swallowing techniques and performing oropharyngeal strengthening exercises. A repeat MBSS will be conducted to assess and determine the safest oral diet for him moving forward. His extensive medical history includes cardiovascular issues such as ischemic cardiomyopathy, atherosclerotic heart disease, and abdominal aortic aneurysm, as well as other conditions including COPD, macular degeneration, BPH, GERD, and a history of alcohol abuse, among others. Current Diet Ordered: soft and bite-sized foods and nectar-thick liquids Dentition: Upper Dentures and Lower Dentures Respiratory Status: Oxygenating on Room Air Penetration-Aspiration Scale Penetration-Aspiration Scale: OBJECTIVE ASSESSMENT OF SWALLOW FUNCTION (QUANTITATIVE ? PER TRIAL): PENETRATION / ASPIRATION SCALE (PEACOCK): 1 = does not enter airway 2 = enters airway/above vocal folds/ejected 3 = enters airway/above vocal folds/not ejected 4 = enters airway/contacts vocal folds/ejected 5 = enters airway/contacts vocal folds/not ejected 6 = enters airway/below vocal folds/ejected 7 = enters airway/below vocal folds/not ejected despite effort 8 = enters airway/below vocal folds/no effort VIDEOFLOROSCOPIC SCALE SCORE (PEACOCK): Grade I = aspiration of material that has penetrated into the laryngeal vestibule, intact cough reflex Grade II = aspiration < 10 % of the bolus, intact cough reflex Grade III = aspiration of < 10 % of the bolus, reduced cough reflex or aspiration of > 10 % of the bolus, intact cough reflex Grade IV = aspiration of > 10 % of the bolus, reduced cough reflex Penetration-Aspiration Scale Score [place] Thick Liquid via teaspoon: Result: 1= does not enter airway [place] Thick Liquid via teaspoon: Result: 1= does not enter airway [place] Thick Liquid via teaspoon Trial 2: Result: 1= does not enter airway [place] Thick Liquid via small single sip: cup: Result: 1= does not enter airway [place] Thick Liquid via small single sip: cup Trial 2: Result: 5= enters airways/contacts vocal folds/not ejected [place] Thick Liquid via small single sip: cup Trial 3: Result: 1= does not enter airway [place] Thick Liquid via small single sip: cup Trial 4: Result: 3= enters airways/above vocal folds/not ejected Thin Liquid via small single sip: cup: Result: 1= does not enter airway Thin Liquid via small single sip: cup Effortful swallow: Result: 1= does not enter airway Thin Liquid via small single sip: cup Effortful swallow Trial 2: Result: 2= enter airway/above vocal folds/ejected Thin Liquid via small single sip: cup Effortful swallow Trial 3: Result: 3= enters airways/above vocal folds/not ejected Comment: cue bolus hold, sm sip, hard swallow Thin Liquid via large single sip: cup: Result: 3= enters airways/above vocal folds/not ejected Cookie: Result: 1= does not enter airway Thin Liquid via large single sip: cup Trial 2: Result: 3= enters airways/above vocal folds/not ejected Thin Liquid via small single sip: cup Effortful swallow Trial 4: Result: 1= does not enter airway Thin Liquid via small single sip: cup Effortful swallow Trial 5: Result: 1= does not enter airway Oral Phase Labial Seal: No Labial Escape Tongue Control During Bolus Hold: Posterior escape of greater than half of bolus Bolus Preparation/Mastication: Disorganized chewing/mashing with solid pieces of bolus unchewed Bolus Transport/Lingual Motion: Repetitive/disorganized tongue motion Oral Residue: Residue collection on oral structures Pharyngeal Phase Initiation of Pharyngeal Swallow: Bolus head in pyriforms Soft Palate Elevation: No bolus between soft palate and pharyngeal wall Laryngeal Elevation: Partial superior movement thyroid cart/partial apprx aryt- epig petiole Anterior Hyoid Excursion: Partial anterior movement Epiglottic Movement: Complete inversion Laryngeal Vestibule Closure at Height of Swallow: Incomplete; narrow column of air/contrast in laryngeal vestibule Pharyngeal Stripping Wave: Present - diminished Pharyngoesophageal Segment Opening: Parital distension and partial duration; parital obstruction of flow Tongue Base Retraction: Narrow column of contrast between tongue base & post. 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 During a single PO trial, the FRANKFURTER INSPECTOR instructed the patient to use a bolus hold, but this did not reduce the risk of aspiration. The oral phase is marked by disorganized mastication with lingual pumping and delayed AP transit. Oral residue remains after the swallow. The pharyngeal phase is characterized by delayed pharyngeal onset timing, which results in suboptimal bolus positioning during the swallow. Additionally, there is decreased pharyngeal motility, including reduced TB retraction, impaired pharyngeal stripping wave, and poor UES opening. Aspiration was observed once with nectar-thick liquids due to delayed pharyngeal onset timing, causing penetration to the vocal cords that was NOT fully ejected. The patient demonstrated a reduced risk of aspiration when taking small sips and performing an effortful swallow with thin liquids. It is also important to note that the patient's cognitive function has improved since the previous MBSS performed on 09/01/2024. Recommendations Diet: Regular Textures and Thin Liquids Comment: CONTINUE WITH MODIFIED DIET OF SOFT AND BITE-SIZE TEXTURES. ST TO ANALYZE SWALLOW FUNCTION IN SUBSEQUENT SESSION TO DETERMINE IF DIET ADVANCEMENT TO REGULAR TEXTURES IS APPROPRIATE. Compensatory Strategies: Small Bites, Small Sips, Slow Rate, Feed only when alert, Multiple Swallows, Alternate bites/solids and sips/liquids, Sitting upright and Remain sitting upright for 30 minutes after PO intake Supervision: Assist as needed Recommend Repeat Modified Barium Swallow: TBD Need for Skilled Speech Therapy Services: Yes Education Completed: 1. Described result of evaluation., 2. Pt understands evaluation & agrees with goals and treatment plan. and 5. Patient demonstrates recommended strategies. Status Active ST Patient: Active Contact Information [facility] Speech Therapy:: Nancy Mark M.A. [facility] Speech-Language Pathologist [facility] [address] [place] [address] [email or web address] [phone]
--- NOTE | 2024-09-23 13:24 | NURSING ---
PT LEFT FLOOR BY WHEEL CHAIR FOR COOKIE SWALLOW AT 1325.
--- NOTE | 2024-09-23 13:32 | NURSING ---
Off floor to swallow study via WC.
--- NOTE | 2024-09-23 13:55 | NURSING ---
PT RETURNED TO FLOOR AT 1355 FROM [facility] FOR DYSPHAGIA. SEE REPORT.
[2024-09-23] MEDS: Ensure Plus High Protein 120 ML LIQUID PO ×2 (15:00→17:25)
[2024-09-23] MEDS: Acetaminophen 500 MG Tablet 1000 MG PO (15:04)
[2024-09-23] MEDS: oxyCODONE 5 MG Tablet PO (15:04)
[2024-09-23 17:20] VITALS: BP 104/64; PULSE 75
[2024-09-23] MEDS: Atorvastatin Calcium 20 MG Tablet PO (22:21)
[2024-09-23] MEDS: Tamsulosin HCl 0.4 MG Capsule 0.8 MG PO (22:21)
[2024-09-24] MEDS: Fluticasone/Salmeterol 232-14 Inhaler 1 PUFF INHALATION ×2 (08:39→20:39)
[2024-09-24] MEDS: Ensure Plus High Protein 120 ML LIQUID PO ×3 (08:40→17:50)
[2024-09-24] MEDS: guaiFENesin 1,200 MG Tablet 1200 MG PO ×2 (08:46→20:39)
[2024-09-24] MEDS: Nystatin Powder 15gm Bottle 1 APPLIC TOPICAL ×2 (08:47→20:39)
[2024-09-24] MEDS: Carvedilol 3.125 MG TABLET PO ×2 (08:48→17:53)
[2024-09-24] MEDS: Pantoprazole Sodium 40 MG Tablet PO (08:49)
[2024-09-24] MEDS: Enoxaparin 30 MG/0.3 ML Syringe SC ×2 (08:49→20:39)
[2024-09-24 08:54] VITALS: BP 110/60; PULSE 91; RESP 16; TEMP 36.7; O2SAT 96
--- NOTE | 2024-09-24 11:30 | CASEMGMT ---
Addendum entered by Vicenta Yao 09/25/24 13:13: Overnight O2 testing results show no desaturations, thus there is no need for O2. [employer] and pt/ updated. Addendum entered by Vicenta Yao 09/24/24 15:25: SW considered pt's O2 testing and therapy schedule further. Phoned to discuss logistics and offered for pt to DC home 09/26. agreeable and expressed no concerns. SW updated [facility] and [facility]. SOC 09/28. Original Note: Social Work Insurance issued LCD 09/26, DC 09/27. SW spoke with pt and at bedside. SW provided NOMNC to pt and educated to appeal rights. Pt verbalized understanding and denied appeal. Pt is agreeable to DC. confirmed she can care for pt at home. IDT recommending skilled HHC vs OP therapy d/t nursing needs. Pt/ agreeable. SW provided list of skilled HHC agencies within geographical area, INN with insurance, that include quality and resource data via CarePort guide. [facility]. SW educated HHC agency will contact pt for SOC date date, but typically 2-3 days after DC, pending PCP signing orders. Pt/ expressed understanding. SW educated to new need for overnight O2, and testing will be completed. Pt denied O2 need as he isn't going to use it. SW explained if the testing shows he needs it, this worker still has to order it, educating to the importance of proper oxygen overnight. agreed. SW will notify nursing for testing. to transport at [place]. - SW referred to [facility] for overnight O2 via CarePort. Notified nursing. Phoned referral to [facility] for PT/OT/SN, and notified after HHC is completed, pt wishes to pursue [facility]. [facility] can accept. Plan: DC home with 09/27, [facility] PT/OT/SN, overnight O2 Vicenta Yao LADIES ATTENDANT MULTIMEDIA PROGRAMMER
--- NOTE | 2024-09-24 11:30 | CASEMGMT ---
Social Work Insurance issued LCD 09/26, DC 09/27. SW spoke with pt and at bedside. SW provided NOMNC to pt and educated to appeal rights. Pt verbalized understanding and denied appeal. Pt is agreeable to DC. confirmed she can care for pt at home. IDT recommending skilled HHC vs OP therapy d/t nursing needs. Pt/ agreeable. SW provided list of skilled HHC agencies within geographical area, INN with insurance, that include quality and resource data via CarePort guide. [facility]. SW educated HHC agency will contact pt for SOC date date, but typically 2-3 days after DC, pending PCP signing orders. Pt/ expressed understanding. SW educated to new need for overnight O2, and testing will be completed. Pt denied O2 need as he isn't going to use it. SW explained if the testing shows he needs it, this worker still has to order it, educating to the importance of proper oxygen overnight. agreed. SW will notify nursing for testing. to transport at [place]. - SW referred to [facility] O2 via [facility]Port. Notified nursing. Phoned referral to [facility] for PT/OT/SN, and notified after HHC is completed, pt wishes to pursue [facility]. Plan: DC home with 09/25, [facility] PT/OT/SN, overnight O2 Vicenta BERNSTEINW
[2024-09-24] MEDS: oxyCODONE 5 MG Tablet PO (16:05)
[2024-09-24 17:58] VITALS: BP 138/81; PULSE 84
--- NOTE | 2024-09-24 19:35 | DS.PCM_ITS ---
Providers Date of Admission: 09/03/24 Primary Care Physician: Dr. Roberto Wing MD Consultations 09/08/24 16:10 Consult: Onc/Wound/associate financial advisor Routine Comment: Reason for Consult:: LT HEEL PRESSURE INJURY Reason For Visit: L HIP FRACTURE HYPONATREMIA Diagnosis Discharge Diagnosis (1) Debility: Status: Acute Code(s): R53.81 - Other malaise (2) Closed fracture of left hip: Status: Resolved Code(s): S72.002A - Fracture of unspecified part of neck of left femur, initial encounter for closed fracture Qualifiers: Encounter type: initial encounter Qualified Code(s): S72.002A - Fracture of unspecified part of neck of left femur, initial encounter for closed fracture (3) Hyponatremia: Status: Resolved Code(s): E87.1 - Hypo-osmolality and hyponatremia (4) Alcohol abuse: Status: Inactive Code(s): F10.10 - Alcohol abuse, uncomplicated (5) Essential (primary) hypertension: Status: Acute Code(s): I10 - Essential (primary) hypertension (6) Coronary artery disease: Status: Acute Code(s): I25.10 - Atherosclerotic heart disease of [place] coronary artery without angina pectoris (7) GERD (gastroesophageal reflux disease): Status: Chronic Code(s): K21.9 - Gastro-esophageal reflux disease without esophagitis Qualifiers: Esophagitis presence: esophagitis presence not specified Qualified Code(s): K21.9 - Gastro-esophageal reflux disease without esophagitis (8) COPD (chronic obstructive pulmonary disease): Status: Inactive Code(s): J44.9 - Chronic obstructive pulmonary disease, unspecified Qualifiers: COPD type: unspecified COPD Qualified Code(s): J44.9 - Chronic obstructive pulmonary disease, unspecified (9) Macular degeneration: Status: Acute Code(s): H35.30 - Unspecified macular degeneration (10) Hyperlipidemia: Status: Acute Code(s): E78.5 - Hyperlipidemia, unspecified (11) BPH (benign prostatic hyperplasia): Status: Chronic Code(s): N40.0 - Benign prostatic hyperplasia without lower urinary tract symptoms Qualifiers: Lower urinary tract symptom presence: symptoms present Lower urinary tract symptom detail: nocturia Qualified Code(s): N40.1 - Benign prostatic hyperplasia with lower urinary tract symptoms; R35.1 - Nocturia (12) Acute respiratory failure with hypoxia: Status: Acute Code(s): J96.01 - Acute respiratory failure with hypoxia (13) Aspiration pneumonia: Status: Acute Code(s): J69.0 - Pneumonitis due to inhalation of food and vomit (14) Dysphagia: Status: Acute Code(s): R13.10 - Dysphagia, unspecified Plan 84 year old male with below past medical history hospitalized for left hip fracture, underwent left hip hemiarthroplasty 08/30/[address] Vázquez, postoperative course complicated by hyponatremia, acute respiratory failure with hypoxia, aspiration pneumonia, admitted to TCU with debility, here for rehabilitation, strengthening, prior to discharge home with . * Debility - PT/OT. * Dysphagia - ST. * Pain - Tylenol 1000mg q6 prn pain (1-3), Oxycodone 5mg q4 prn pain (4-10). * Bowel - senna/colace 2 tablets bid, Magnesium citrate 300mL po x 1 prn. * Adult immunization - Administer pneumonia vaccine, covid vaccine, flu vaccine as appropriate. * DVT prophylaxis - Lovenox 30mg sc bid thru 09/28/2024. * COPD - Budesonide 0.5mg inhaled Q12, Albuterol 2.5mg q6 wa. * Aspiration pneumonia - Augmentin 875mg bid thru 09/07/2024. * Hyperlipidemia - Atorvastatin 20mg qhs. * Coronary artery disease - Coreg 3.125mg bid, Losartan 50mg daily. * Congestion Mucinex 1200mg bid. * Skin irritation - Calmoseptine topical bid. * Tobacco Abuse - Nicotine 14mg td daily. * GERD - Pantoprazole 40mg daily. * BPH - Tamsulosin 0.8mg qhs. * Alcohol abuse - recommend cessation. Medications at Discharge Home Medications Handicap Placard #1 ea 12/29/21 albuterol sulfate 2.5 mg/3 mL (0.083 %) solution for nebulization 2.5 mg (3 mL) inhalation Q6H PRN shortness of breath or wheezing #0 mL 12/12/22 atorvastatin 20 mg tablet 20 mg PO QHS Cholesterol #0 tabs 12/12/22 carvedilol 3.125 mg tablet 3.125 mg PO DAILY HEART #90 tabs 01/14/24 omeprazole 40 mg capsule,delayed release 40 mg PO DAILY reflux #90 caps 02/28/24 losartan 50 mg tablet 50 mg PO DAILY BLOOD PRRESSURE #90 tabs 04/30/24 budesonide-formoterol HFA 160 mcg-4.5 mcg/actuation aerosol inhaler (Symbicort) 2 puff inhalation BID wheezing/SOB #10.2 grams 06/08/24 guaifenesin 1,200 mg tablet, extended release 12 hr (Mucinex) 1,200 mg PO BID cough #120 tabs 08/28/24 tamsulosin 0.4 mg capsule 0.8 mg PO Q24H BPH 09/03/24 acetaminophen 500 mg tablet 1,000 mg (2 x 500 mg) PO Q6H PRN PRN Pain Score 1-5 #0 tabs 09/24/24 oxycodone 5 mg tablet 5 mg PO Q4H PRN PRN Pain Score 4-10 7 days #42 tabs 09/24/24 sennosides 8.6 mg-docusate sodium 50 mg tablet (Stimulant Laxative Plus) 1 tab PO BID 30 days #60 tabs 09/24/24 Hospital Course Operations - (Left hip hemiarthroplasty.) Procedures None Summary of Care Provided Minutes Spent on Discharge: 35 Hospital Course: 84 year old male with below past medical history hospitalized for left hip fracture, underwent left hip hemiarthroplasty 08/30/[address] Vázquez, postoperative course complicated by hyponatremia, acute respiratory failure with hypoxia, aspiration pneumonia, admitted to TCU with debility, here for rehabilitation, strengthening, prior to discharge home with . Discharge home with 09/27/2024, [facility] PT/OT/SN, overnight oxygen. Oxygen: Patient requires 2LPM of oxygen via nasal cannula d/t nighttime hypoxia; requires a concentrator and portable O2 tanks to allow patient to be mobile in the home and the community; O2 will improve the patient's condition in the home setting. Physical Exam Const alert General Appearance: cooperative HEENT normocephalic Eyes PERRL and EOMs intact bilaterally Neck supple, no JVD and no carotid bruits Resp normal respiratory effort, normal air movement and clear to auscultation bilaterally Cardio regular rate and regular rhythm GI normal to inspection, nondistended, normoactive bowel sounds, non-tender and non-distended Extremity normal capillary refill General Extremity: Negative for edema Skin no rashes or lesions noted General Skin Exam: no breakdown Psych affect normal Appearance: appropriate Weight / BMI Weight Weight: 60.192 kg Body Mass Index (BMI) 20.8 ABG / Lab / Microbiology Data 09/18/24 05:30 09/18/24 05:30 Microbiology: Microbiology 09/03/24 16:38 Stool Clostridioides difficile (PCR) - Final D/C Instructions Discharge Diet: No restrictions Discharge Activity: Return to Normal Activity, May Shower and Use Walker Weight Bearing Status: Weight bearing as tolerated Call your doctor if you observe: Fever of 101 or Higher, Inability to urinate, Inability to have a bowel movement, Shortness of breath, Dizziness, Fainting spells, Swelling in the ankles, Chest pain and Uncontrolled pain DC O2, CPAP, BIPAP Needs Home O2 Discharge instructions: Yes Type of respiratory needs?: Oxygen Oxygen frequency: With Sleeping Oxygen liters per minute when sleepin DC home with Oxygen: Yes Home O2 MD Review: I have reviewed the oxygen testing, and the patient qualifies for home oxygen equipment and portability. The patient is mobile in the home and the community. Please Follow Up With: Dr. Vázquez When: 10/26/2024. Meaningful Use Info Meaningful Use Meaningful Use Diagnoses (Choose all that apply): None applicable Ischemic Stroke Statin Dosing Therapy Reference: STATIN DOSE THERAPY REFERENCE: * Patients > 75 years receive moderate or high dose statin therapy. * Patients 75 years or YOUNGER should receive HIGH intensity statin dose unless contraindicated. You will be required to document reason for non-treatment if statin daily dose does not meet guidelines. HIGH DOSE STATIN THERAPY DAILY Atorvastatin > than or = to 40 mg Rosuvastatin > than or = to 20 mg Amlodipine + Atorvastatin > than or = to 2.5/40 mg Ezetimibe + Simvastatin 10/80 mg Simvastatin 80mg Discharge Plan Admission Admit Date/Time: 09/03/24 14:37 Primary Reason for Your Visit: Debility. Attending Provider: Brando Wynn Chi Primary Care Provider: Roberto Wing Instructions Additional Instructions / Restrictions: Discharge home with 09/27/2024, [facility] PT/OT/SN, overnight oxygen. Oxygen: Patient requires 2LPM of oxygen via nasal cannula d/t nighttime hypoxia; requires a concentrator and portable O2 tanks to allow patient to be mobile in the home and the community; O2 will improve the patient's condition in the home setting. Discharge Orders/Prescriptions Prescriptions: New sennosides-docusate sodium [Stimulant Laxative Plus] 8.6-50 mg Tablet 1 tab PO BID 30 Days Qty: 60 0RF acetaminophen 500 mg Tablet 1,000 mg PO Q6H PRN PRN (Reason: Pain Score 1-5) Qty: 0 0RF oxycodone 5 mg Tablet 5 mg PO Q4H PRN PRN (Reason: Pain Score 4-10) 7 Days Qty: 42 0RF Continued omeprazole 40 mg capsule,delayed release(DR/EC) 40 mg PO DAILY Qty: 90 3RF guaifenesin [Mucinex] 1,200 mg tablet extended release 12hr 1,200 mg PO BID Qty: 120 3RF atorvastatin 20 mg Tablet 20 mg PO QHS Qty: 0 0RF albuterol sulfate 2.5 mg /3 mL (0.083 %) Solution For Nebulization 2.5 mg inhalation Q6H PRN (Reason: shortness of breath or wheezing) Qty: 0 0RF tamsulosin 0.4 mg capsule 0.8 mg PO Q24H Rx Instructions: TAKE 2 CAPS ORALLY AT BEDTIME FOR 3 MONTHS carvedilol 3.125 mg tablet 3.125 mg PO DAILY Qty: 90 2RF losartan 50 mg tablet 50 mg PO DAILY Qty: 90 1RF budesonide-formoterol [Symbicort] 160-4.5 mcg/actuation HFA aerosol inhaler 2 puff inhalation BID Qty: 10.2 2RF Discontinued acetaminophen 325 mg Tablet 650 mg PO Q6H PRN PRN (Reason: Pain 1-5/10 or Fever) 14 Days Qty: 0 0RF nicotine 14 mg/24 hr Patch 24 Hour 14 mg transdermal DAILY 7 Days Qty: 0 0RF amoxicillin-pot clavulanate 875-125 mg Tablet 1 tab PO BIDCM 5 Days Qty: 9 0RF oxycodone 5 mg Tablet 5 mg PO Q6H PRN PRN (Reason: Pain Score 4-10) 3 Days Qty: 12 0RF enoxaparin 30 mg/0.3 mL Syringe 30 mg subcut BID 25 Days Qty: 0 0RF No Action (DME) Handicap Placard See Rx Instructions .ROUTE .MEDSUPPLY Qty: 1 0RF Rx Instructions: As directed, length of time 3 years Referrals / Follow Up: Roberto Wing MD [Primary Care Provider] - 10/08/24 2:00 pm (Will call if they have a cancellation. This is the earliest available.) Disposition Disposition (needs filled in before D/C Order can be placed): Home Health Service
[2024-09-24] MEDS: Tamsulosin HCl 0.4 MG Capsule 0.8 MG PO (20:39)
[2024-09-24] MEDS: Atorvastatin Calcium 20 MG Tablet PO (20:39)
[2024-09-24 21:25] VITALS: PULSE 53; O2SAT 95
[2024-09-25 06:38] LABS: Anion Gap 10 (5-15); BUN 12 mg/dL (4-19); BUN/Creat Ratio 18.6 RATIO (10-20); Calcium,Total 8.7 mg/dL (7.6-11.0); Carbon Dioxide 20.2 mmol/L (21.0-32.0); Chloride 104 mmol/L (98-108); Creatinine, Serum 0.65 mg/dL (0.70-1.20); EST Glomerular Filtration Rate 93 (>60); Estimated Creatinine Clearance 58.52 ml/min (50-250); Glucose 105 mg/dL (70-99); Sodium Level 135 mmol/L (133-145)
[2024-09-25 06:45] LABS: Absolute Lymphocyte Count 1.76 X10^3/uL (0.83-4.51); Absolute Neutrophil Count 2.1 X10^3/uL (2.0-7.7); Basophil# 0.06 X10^3/uL; Basophil% 1.2 % (0-1); Eosinophil# 0.14 X10^3/uL; Eosinophils% 2.8 % (0-5); Hematocrit 33.3 % (40-54); Hemoglobin 11.1 g/dL (13.0-16.5); Lymphocyte # 1.76 X10^3/ul (0.83-4.51); Lymphocyte % 35.5 % (19-41); Mean Corp Hgb Conc 33.3 g/dL (32-36); Mean Corpuscular Hgb 28.2 pg (27.0-32.0); Mean Corpuscular Volume 84.7 fL (80-94); Monocyte# 0.86 X10^3/uL; Monocyte% 17.3 % (0-10); NRBC Flagged by Analyzer 0 % (0-5); Neutrophil # 2.11 X10^3/uL (2.7-7.7); Neutrophil % 42.6 % (47-70); Platelet Count 337 K/mm3 (150-450); RBC Distribution Width CV 15.9 % (11.6-14.6); RBC Distribution Width SD 49.4 fl (35.1-43.9); Red Blood Count 3.93 M/mm3 (4.6-6.2)
[2024-09-25] MEDS: Carvedilol 3.125 MG TABLET PO ×2 (08:11→16:12)
[2024-09-25] MEDS: Fluticasone/Salmeterol 232-14 Inhaler 1 PUFF INHALATION ×2 (08:11→21:46)
[2024-09-25] MEDS: guaiFENesin 1,200 MG Tablet 1200 MG PO ×2 (08:11→21:46)
[2024-09-25] MEDS: Pantoprazole Sodium 40 MG Tablet PO (08:11)
[2024-09-25] MEDS: Enoxaparin 30 MG/0.3 ML Syringe SC ×2 (08:11→21:46)
[2024-09-25] MEDS: Nystatin Powder 15gm Bottle 1 APPLIC TOPICAL ×2 (08:12→21:47)
[2024-09-25] MEDS: Ensure Plus High Protein 120 ML LIQUID PO ×3 (08:12→16:11)
[2024-09-25] MEDS: Menthol/Lanolin/Calamine/Znox 113 GM Tube 1 APPLIC TOPICAL ×2 (08:13→21:46)
--- NOTE | 2024-09-25 10:05 | MDS.RN ---
Pain assessment for MDS complete.
[2024-09-25 14:51] VITALS: BP 124/72; PULSE 89; RESP 18; TEMP 36.6; O2SAT 95
--- NOTE | 2024-09-25 14:58 | CASEMGMT ---
Social Work SW completed BIMS () and PHQ-2 () for MDS assessment. Vicenta Yao COMMUNICATIONS SCIENTIST [employer] AND TRACK AND FIELD COACH
[2024-09-25 16:13] VITALS: BP 123/72; PULSE 87
[2024-09-25] MEDS: oxyCODONE 5 MG Tablet PO (19:54)
[2024-09-25] MEDS: Tamsulosin HCl 0.4 MG Capsule 0.8 MG PO (21:46)
[2024-09-25] MEDS: Atorvastatin Calcium 20 MG Tablet PO (21:46)
[2024-09-26] MEDS: Ensure Plus High Protein 120 ML LIQUID PO (08:29)
[2024-09-26] MEDS: Carvedilol 3.125 MG TABLET PO (08:30)
[2024-09-26] MEDS: Menthol/Lanolin/Calamine/Znox 113 GM Tube 1 APPLIC TOPICAL (08:30)
[2024-09-26] MEDS: guaiFENesin 1,200 MG Tablet 1200 MG PO (08:30)
[2024-09-26] MEDS: Nystatin Powder 15gm Bottle 1 APPLIC TOPICAL (08:30)
[2024-09-26] MEDS: Pantoprazole Sodium 40 MG Tablet PO (08:30)
[2024-09-26] MEDS: Fluticasone/Salmeterol 232-14 Inhaler 1 PUFF INHALATION (08:31)
[2024-09-26] MEDS: oxyCODONE 5 MG Tablet PO (08:36)
[2024-09-26 09:49] VITALS: BP 100/65; PULSE 107; RESP 18; TEMP 36.5; O2SAT 96
== END 2024-09-26 11:35 | disposition home health service (06) | DRG 559 ==
PROVIDERS: Admitting Provider Family Medicine Geriatric Medicine; PCP Internal Medicine; Referring Provider Family Medicine Geriatric Medicine; Visit Provider Family Medicine Geriatric Medicine
DX: S72.002D Fracture of unspecified part of neck of left femur, subsequent encounter for closed fracture with routine healing (principal); J69.0 Pneumonitis due to inhalation of food and vomit; J96.01 Acute respiratory failure with hypoxia; E87.1 Hypo-osmolality and hyponatremia; L89.626 Pressure-induced deep tissue damage of left heel; R13.10 Dysphagia, unspecified; J44.9 Chronic obstructive pulmonary disease, unspecified; I10 Essential (primary) hypertension; F10.10 Alcohol abuse, uncomplicated; F17.210 Nicotine dependence, cigarettes, uncomplicated; H35.30 Unspecified macular degeneration; I25.10 Atherosclerotic heart disease of native coronary artery without angina pectoris; K21.9 Gastro-esophageal reflux disease without esophagitis; E78.5 Hyperlipidemia, unspecified; W19.XXXD Unspecified fall, subsequent encounter; N40.1 Benign prostatic hyperplasia with lower urinary tract symptoms; R53.1 Weakness; Z79.899 Other long term (current) drug therapy; R35.1 Nocturia; Z96.642 Presence of left artificial hip joint
CPT/HCPCS: 36415; 74018; 74230; 80048; 85025; 87493; 92526; 92610; 92611; 94640; 94762; 97110; 97116; 97162; 97166; 97530; 97535; 97802; A4216

== ENCOUNTER 2024-10-14 09:01 | Outpatient (RCR) | payer MEDICARE, SELFPAY ==
[2024-10-14 09:35] VITALS: BP 125/68; PULSE 85; RESP 18; TEMP 36.1
--- NOTE | 2024-10-14 10:17 | HP.PCM_ITS ---
History of Present Illness Date of Service: 10/14/24 Chief Complaint: Left heel decubitus ulcer History of Wound: 84-year-old white male who was in the hospital for a left hip replacement in August and he developed a left heel from digging into the sheets turning and moving blister that opened. They have only been using [id number] antibiotic ointment on it. Patient history of anemia. Saw their doctor and she referred them to the wound center. [facility] Medical History (Reviewed 10/14/24 @ 10:27 by Colleen Mercado BEHAVIORAL HEALTH PROFESSIONAL, BEHAVIORAL HEALTH PROFESSIONAL-C) Osteoarthritis Alcohol abuse Tobacco abuse Preoperative cardiovascular examination Displaced fracture of right femoral neck Macular degeneration Wears dentures Easy bruising History of ulceration Smoker Hoarseness History of echocardiogram History of stress test Right inguinal hernia COPD (chronic obstructive pulmonary disease) Chronic cough BPH (benign prostatic hyperplasia) COVID-19 vaccine series completed Alcohol abuse Syncope Cellulitis of scrotum Scrotal abscess Fecal urgency Spinal stenosis of lumbar region with neurogenic claudication Ischemic cardiomyopathy Iliac artery aneurysm, right Abdominal aortic aneurysm (AAA) Atherosclerotic heart disease of [place] coronary artery without angina pectoris Nicotine dependence Essential (primary) hypertension Gastric ulcer Chronic back pain History of RSV infection Vision problem GERD (gastroesophageal reflux disease) Cataract Bone fracture Back problem Seasonal allergies Home Medications ?Medication ?Instructions ?Recorded ?Last Taken ?Type albuterol sulfate 2.5 mg/3 mL 2.5 mg (3 mL) inhalation Q6H PRN 12/12/22 Unknown Rx (0.083 %) solution for nebulization shortness of breat h or wheezing #0 mL omeprazole 40 mg capsule,delayed 40 mg PO DAILY reflux #90 caps 02/28/24 Unknown Rx release budesonide-formoterol HFA 160 2 puff inhalation BID wh eezing/SOB 06/08/24 Unknown Rx mcg-4.5 mcg/actuation aerosol #10.2 grams inhaler (Symbicort) tamsulosin 0.4 mg capsule 0.8 mg PO Q24H BPH 09/03/24 Unknown History acetaminophen 500 mg tablet 1,000 mg (2 x 500 mg) PO Q 6H PRN 09/24/24 Unknown Rx PRN Pain Score 1-5 #0 tabs oxycodone 5 mg tablet 5 mg PO Q4H PRN PRN Pain Sco re 09/24/24 Unknown Rx 4-10 7 days #42 tabs carvedilol 3.125 mg tablet 3.125 mg PO DAILY HEART #90 tabs 10/02/24 Unknown Rx Handicap Placard #1 ea 10/08/24 Unknown Rx guaifenesin 1,200 mg tablet, 1,200 mg PO QDAY cough Unknown History extended release 12 hr (Mucinex) Allergy/AdvReac Type Severity Reaction Status Date / Time No Known Allergies Allergy Verified 10/14/24 10:08 Family History Grandfather Cancer Father Brain aneurysm Daughter Hypertension Surgical History History of left hip hemiarthroplasty History of right hip hemiarthroplasty History of right inguinal hernia repair History of esophagogastroduodenoscopy (EGD) History of colonoscopy History of back surgery History of left heart catheterization (11/11/13) History of endovascular stent graft for abdominal aortic aneurysm (AAA) (12/11/13) Rupture of biceps tendon Social History household members: spouse housing: house Smoking Status: Current every day smoker tobacco type: cigarettes Tobacco: How many years used: 62 alcohol intake: current alcohol intake frequency: 3 or more drinks per day Alcohol type: beer substance use type: does not use what type of physical activity do you participate in: none ROS Constitutional Constitutional: Reports systems reviewed and no addt'l complaints, except as documented Eyes Eyes: Reports systems reviewed and no addt'l complaints, except as documented ENT HEENT: Reports systems reviewed and no addt'l complaints, except as documented Cardiovascular Cardiovascular: Reports systems reviewed and no addt'l complaints, except as documented Respiratory/Chest Respiratory/Chest: Reports systems reviewed and no addt'l complaints, except as documented Gastrointestinal Gastrointestinal: Reports systems reviewed and no addt'l complaints, except as documented Genitourinary Genitourinary: Reports systems reviewed and no addt'l complaints, except as documented Musculoskeletal Musculoskeletal: Reports systems reviewed and no addt'l complaints, except as documented Integumentary Integumentary: Reports wounds and other Details: Open wound about the size of a $0.50 piece on the inner aspect of his left heel with slough some erythema around the perimeter edge positive depth. Neurologic Neurologic: Reports systems reviewed and no addt'l complaints, except as documented Psychiatric Psychiatric: Reports systems reviewed and no addt'l complaints, except as documented Endocrine Endocrinology: Reports systems reviewed and no addt'l complaints, except as documented Hematologic/Lymphatic Hematologic/Lymphatic: Reports systems reviewed and no addt'l complaints, except as documented Allergic/Immunologic Allergic/Immunologic: Reports systems reviewed and no addt'l complaints, except as documented Vital Signs Vital Signs Vital Signs: 10/14/24 09:35 Temperature 97 F L Temperature Source Temporal Pulse Rate 85 Respiratory Rate 18 Blood Pressure 125/68 H Blood Pressure Mean 87 Blood Pressure Source Monitor Blood Pressure Position Supine Blood Pressure Location Left Arm Oxygen Delivery Method Room Air Weight Weight: 140 lb Physical Exam Const oriented x3 General Appearance: cooperative Exam Limitations: no limitations HEENT normocephalic Eyes General Eye: normal appearance of both eyes Neck General: normal visual inspection Resp normal respiratory effort Effort and Inspection: able to speak in complete sentences Auscultation: clear to auscultation bilaterally Cardio regular rate and regular rhythm Palpation: normal PMI Rate: regular rate Rhythm: regular rhythm GI Palpation: soft and no hepatosplenomegaly Back/Spine Cervical Spine: cervical ROM normal Thoracic Spine / Upper Back: normal to inspection Lumbar Spine / Lower Back: normal to inspection Extremity General Extremity: normal exam except as noted Skin no rashes or lesions noted Wounds: wounds noted Wound Narrative: Open wound left inner aspect of the left heel positive slough in depth Neuro oriented x3 Psych Appearance: grossly normal Speech: normal speech Thought Content: normal thought content Judgement: judgement good Debridement Note Debridement Note Post-Debridement Measurements and Additional Note: Post-Debridement Measurements/Treatment [facility] Nurse 1 - General Ulcer Assessment Start: 10/14/24 09:35 Freq: Status: Active Protocol: [email or web address] Activity Type Activity Date Activity User E-sign Co-sign Detail Recorded Client Recorded Date Recorded By Document 10/14/24 09:35 [place] [id number] 10/14/24 09:43 [place] 10/14/24 09:35 [facility] Today's Visit Information Type of service Initial Visit Arrival Mode Ambulatory, Wheelchair Accompanied by -KAVITA Patient Identification Verified (Name & Yes ) Safety Precautions Fall Prevention Height and Weight Weight 140 lb Weight in Pounds 140.0 lbs Vital Signs Temperature (97.8 F-99.1 F) 97 F L Temperature Source Temporal Pulse Rate (60-100) 85 Pulse Location Monitor Respiratory Rate (12-18) 18 Respiratory rate source Monitor Oxygen Delivery Method Room Air Blood Pressure (90/60-120/80) 125/68 H Blood Pressure Mean 87 Source Monitor Position Supine Blood Pressure Location Left Arm History Since Last Visit- (Skip if this is Patient's initial visit) Has dressing in place as prescribed Yes Has compression in place as prescribed Yes Has offloadiing in place as prescribed Yes Experienced any changes in pain level or Yes management Left Footwear Regular Shoe Right Footwear Regular Shoe Pain Scale: 0-10 Numeric Is Patient Pain Free? Yes WC - Nurse 1 - General Ulcer Measurement Start: 10/14/24 09:35 Freq: Status: Active Protocol: Activity Type Activity Date Activity User E-sign Co-sign Detail Recorded Client Recorded Date Recorded By Document 10/14/24 09:35 [place] [id number] 10/14/24 09:43 [place] 10/14/24 09:35 Wound Center Nurse 1 #1 LEFT HEEL -Current Size (cm) - Length 2 -Current Size (cm) - Width 2.5 -Current Size (cm) - Depth 0.1 -Total Square Cm 5.0 -Date of Last Picture (Recall this 10/14/24 field) -Photo Taken Yes -Tunneling No -Undermining/Tunneling No -Circular Undermining No -Classification - Thickness Unclassifiable (Eschar Covered ) -Change in Wound Grade/Stage No -Exudate Amt Medium -Exudate Type Purulent -Wound Margin Flat & Intact -Granulation Amt Small (1-33%) -Granulation Quality Pale,[place] -Necrosis Amt Large (67-100%) -Necrotic Tissue Type Adherent Slough -Texture (Tiffanie-wound Skin Appearance) Assessed -Moisture (Tiffanie-wound Skin Appearance) Assessed -Color (Tiffanie-wound Skin Appearance) Assessed -Temperature (Tiffanie-wound Skin No Abnormality Appearance) (Pt Warm) -Tenderness on Palpation (Tiffanie-wound No Skin Appearance) -Ulcer Cleansing Soap and Water -Foul Odor after Cleansing No -Anesthetic Used 5% Lidocaine Gel Lower Limb Edema Present NA WC - Nurse 2 - General Ulcer CM Notes Start: 10/14/24 09:35 Freq: Status: Active Protocol: Activity Type Activity Date Activity User E-sign Co-sign Detail Recorded Client Recorded Date Recorded By Document 10/14/24 09:55 [facility] [id number] 10/14/24 10:08 [facility] 10/14/24 09:55 Wound Center Nurse 2 #1 LEFT HEEL -Time 09:56 -Correct Patient Yes -Correct Side, Site, Position Yes -Correct Procedure Yes -Procedure Performed Yes -Type of Procedure Debridement -Clinical Debridement Subcutaneous -Tissue Removed Subcutaneous -Post Debridement (cm) - Length 2 -Post Debridement (cm) - Width 2.8 -Post Debridement (cm) - Depth 0.2 -Total Square (Post) (cm) 5.6 -Area of Debridement (cm) - Length 2 -Area of Debridement (cm) - Width 2.8 -Total Square (Area) (cm) 5.6 -Tunneling No -Undermining/Tunneling No -Circular Undermining No -Wound/Ulcer Outcome Not Healed -Ulcer Cleansing Rinsed/ Irrigated with Saline -Foul Odor after Cleansing No -Bioengineered Tissue No -Bleeding Controlled with Pressure -Treatment Response Procedure Tolerated Well -Debridement - Subq, 1st 20sq cm Yes Pain Scale: 0-10 Numeric Is Patient Pain Free? Yes Assessment/Plan Assessment/Plan (1) Decubitus ulcer of left heel, stage 2: CODE(S): L89.622 - Pressure ulcer of left heel, stage 2 PLAN: Wash left heel and foot with antibacterial soap and water like Dial soap. Apply the Aquacel extra to wound base moistened cover with Adaptic and then gauze and absorbent SAP Omega dressing every day Follow-up in 1 week Cultures were obtained and we will call with results (2) Pain of left heel: CODE(S): M79.672 - Pain in left foot (3) Anemia: CODE(S): D64.9 - Anemia, unspecified QUALIFIERS: Anemia type: unspecified type Qualified Code(s): D64.9 - Anemia, unspecified (4) Malnutrition: CODE(S): E46 - Unspecified protein-calorie malnutrition QUALIFIERS: Malnutrition type: protein-calorie malnutrition Protein-calorie malnutrition severity: unspecified severity Qualified Code(s): E46 - Unspecified protein-calorie malnutrition
--- NOTE | 2024-10-14 13:39 | WC ---
PHOTO 10/14/24 LEFT HEEL
== END 2024-10-14 23:59 | disposition home or self-care (01) ==
LOC: WC 09:01
PROVIDERS: PCP Internal Medicine; Referring Provider Physician Assistant; Visit Provider Nurse Practitioner
DX: L89.622 Pressure ulcer of left heel, stage 2 (principal); J44.9 Chronic obstructive pulmonary disease, unspecified; I25.5 Ischemic cardiomyopathy; I10 Essential (primary) hypertension; D64.9 Anemia, unspecified; N40.0 Benign prostatic hyperplasia without lower urinary tract symptoms; K21.9 Gastro-esophageal reflux disease without esophagitis; F17.210 Nicotine dependence, cigarettes, uncomplicated; Z79.899 Other long term (current) drug therapy; Z96.642 Presence of left artificial hip joint
CPT/HCPCS: 11042; 87070; 87075; 87077; 87186; 87205; 99214; G0463

== ENCOUNTER 2024-11-11 10:00 | Outpatient (RCR) | payer MEDICARE, SELFPAY ==
[2024-10-15 00:46] VITALS: BP 125/68; PULSE 85; RESP 18; TEMP 36.1
[2024-10-21 09:07] VITALS: BP 111/70; PULSE 98; RESP 18; TEMP 35.9
--- NOTE | 2024-10-21 09:36 | PCM.WC.PN ---
History of Present Illness Date of Service: 10/21/24 Chief Complaint: Left heel decubitus ulcer History of Wound: 84-year-old white male who was in the hospital for a left hip replacement in August and he developed a left heel from digging into the sheets turning and moving blister that opened. They have only been using [id number] antibiotic ointment on it. Patient history of anemia. Saw their doctor and she referred them to the wound center. Progress of Wound: This week the wound looks improved from last week devitalized tissue and slough is off and the edges are nice and flat. Cultures came back positive and started patient on ciprofloxacin he is to continue taking that it is healing the wound well. We will also try to get him on an epi fix and see if that will help him heal then heal better than what we are using right now. Subjective Subjective and patient are happy with outcome so far and tolerating medication well Objective Data Objective Data Measurements are smaller and patient is doing well on the Cipro we will apply for EpiFix and continue using the Aquacel Ag for another week and then with a absorbent dressing over top. Patient is also continue drinking a protein shake every day for increasing protein and helping for healing. Patient's cultures came back positive and was started on ciprofloxacin which she is taking well Vital Signs: Vital Signs Temp Pulse Resp BP 96.6 F L 98 18 111/70 10/21/24 09:07 10/21/24 09:07 10/21/24 09:07 10/21/24 09:07 Weight: 140 lb Lab / Micro Data Attestation: I reviewed the patient's lab results. Physical Exam Const oriented x3 General Appearance: cooperative Exam Limitations: no limitations HEENT normocephalic Eyes PERRL General Eye: normal appearance of both eyes Neck full ROM General: normal visual inspection Resp normal respiratory effort Effort and Inspection: able to speak in complete sentences Auscultation: clear to auscultation bilaterally Cardio regular rate and regular rhythm Palpation: normal PMI Rate: regular rate Rhythm: regular rhythm GI Palpation: soft and no hepatosplenomegaly Back/Spine Cervical Spine: cervical ROM normal Thoracic Spine / Upper Back: normal to inspection Lumbar Spine / Lower Back: normal to inspection Extremity General Extremity: normal exam except as noted Peripheral Pulses: Yes popliteal pulses present Skin no rashes or lesions noted Lesions: no lesions Rashes: no rashes Wound Narrative: Open wound left heel pressure Neuro oriented x3 Gait (Neuro): antalgic Psych Appearance: grossly normal Speech: normal speech Thought Content: normal thought content Judgement: judgement good Debridement Note Debridement Note Wound debrided: Left heel decubitus ulcer Laterality: Left Wound Grade/Stage: Stage II Type of Debridement: Excisional debridement Anesthesia Used: 5% Lidocaine Gel Depth: in the subcutaneous layer Percentage of wound debrided: 100 Instrument Used: 5mm curette Tissue Removed: Fibrin and devitalized tissue Severity: Fat Layer Exposed Bleeding Controlled with: Compression and gauze Post-Debridement Measurements and Additional Note: Post-Debridement Measurements/Treatment YOVANY - Nurse 1 - General Ulcer Assessment Start: 10/21/24 09:06 Freq: Status: Active Protocol: CHRIS Activity Type Activity Date Activity User E-sign Co-sign Detail Recorded Client Recorded Date Recorded By Document 10/21/24 09:07 KARLOS [id number] 10/21/24 09:09 KARLOS 10/21/24 09:07 WC - Today's Visit Information Type of service Follow-up Visit (Physician/COMMUNICATIONS LEAD ) Arrival Mode Wheelchair Transfer Assistance None Patient Identification Verified (Name & Yes ) Patient Requires Transmission-Based No Precautions Vital Signs Temperature (97.8 F-99.1 F) 96.6 F L Temperature Source Temporal Pulse Rate (60-100) 98 Pulse Location Monitor Respiratory Rate (12-18) 18 Respiratory rate source Observation Blood Pressure (90/60-120/80) 111/70 Blood Pressure Mean (mm Hg) 83 Source Monitor Position Semi-Fowlers Blood Pressure Location Left Arm History Since Last Visit- (Skip if this is Patient's initial visit) Have you changed medications since your No last visit? Any new allergies or adverse reactions No Had a fall/change in ADL's that may No increase risk of falls Signs or symptoms of abuse and/or No neglect since last visit Have you been in the hospital since your No last visit? Has dressing in place as prescribed Yes Has compression in place as prescribed N/A Has offloadiing in place as prescribed N/A Experienced any changes in pain level or No management Pain Scale: 0-10 Numeric Is Patient Pain Free? Yes YOVANY - Nurse 1 - General Ulcer Measurement Start: 10/21/24 09:06 Freq: Status: Active Protocol: Activity Type Activity Date Activity User E-sign Co-sign Detail Recorded Client Recorded Date Recorded By Document 10/21/24 09:07 RB [id number] 10/21/24 09:09 RB 10/21/24 09:07 Wound Center Nurse 1 #1 LEFT HEEL -Combined with other wound No -Current Size (cm) - Length 2.4 -Current Size (cm) - Width 2.6 -Current Size (cm) - Depth 0.1 -Total Square Cm 6.24 -Photo Taken Yes -Tunneling No -Undermining/Tunneling No -Circular Undermining No -Exudate Amt Medium -Exudate Type Serosanguineous -Wound Margin Distinct, Outline Attached -Granulation Amt Medium (34-66%) -Granulation Quality [place] -Slough/Fibrin Yes -Necrosis Amt Small (1-33%) -Necrotic Tissue Type Adherent Slough -Structure Exposed N/A -Texture (Tiffanie-wound Skin Appearance) Assessed, Scarring -Moisture (Tiffanie-wound Skin Appearance) Assessed -Color (Tiffanie-wound Skin Appearance) Assessed -Temperature (Tiffanie-wound Skin No Abnormality Appearance) (Pt Warm) -Tenderness on Palpation (Tiffanie-wound No Skin Appearance) -Ulcer Cleansing Wound Cleanser -Foul Odor after Cleansing No -Anesthetic Used 5% Lidocaine Gel WC - Nurse 2 - General Ulcer CM Notes Start: 10/21/24 09:06 Freq: Status: Active Protocol: Activity Type Activity Date Activity User E-sign Co-sign Detail Recorded Client Recorded Date Recorded By Document 10/21/24 09:16 [facility] [id number] 10/21/24 09:21 [facility] 10/21/24 09:16 Wound Center Nurse 2 -Time 09:16 -Correct Patient Yes -Correct Side, Site, Position Yes -Correct Procedure Yes -Procedure Performed Yes -Type of Procedure Debridement -Clinical Debridement Subcutaneous -Tissue Removed Subcutaneous -Post Debridement (cm) - Length 2.5 -Post Debridement (cm) - Width 1.8 -Post Debridement (cm) - Depth 0.2 -Total Square (Post) (cm) 4.50 -Area of Debridement (cm) - Length 2.5 -Area of Debridement (cm) - Width 1.8 -Total Square (Area) (cm) 4.50 -Tunneling No -Undermining/Tunneling No -Circular Undermining No -Wound/Ulcer Outcome Not Healed -Ulcer Cleansing Rinsed/ Irrigated with Saline -Foul Odor after Cleansing No -Bioengineered Tissue No -Bleeding Controlled with Pressure -Treatment Response Procedure Tolerated Well -Debridement - Subq, 1st 20sq cm Yes Pain Scale: 0-10 Numeric Is Patient Pain Free? Yes - Nurse 3 - General Ulcer D/C NN Start: 10/21/24 09:06 Freq: Status: Active Protocol: Activity Type Activity Date Activity User E-sign Co-sign Detail Recorded Client Recorded Date Recorded By Document 10/21/24 09:35 KARLOS [id number] 10/21/24 09:36 KARLOS 10/21/24 09:35 Wound Care Center Nurse 3 #1 LEFT HEEL -Ulcer Cleansing Rinsed/ Irrigated with Saline -Primary Dressing Applied Aquacel AG 2x2, NonAdherent Contact Layer, Silicone Border Foam 4x4 -Aquacel AG 2x2 1 -Silicone Border Foam 4x4 1 LLE -Stockings Yes: pt has own tubigrip from home Treatment Response Procedure Tolerated Well Pain Scale: 0-10 Numeric Is Patient Pain Free? Yes - Visit Discharge Discharge Condition Stable Ambulatory Status Wheelchair Transportation Private Auto Accompanied by Medication Reconcilliation completed & No provided to patient/care provider Clinical Summary of Care Provided Yes Assessment/Plan Assessment/Plan (1) Decubitus ulcer of left heel, stage 2: CODE(S): L89.622 - Pressure ulcer of left heel, stage 2 PLAN: Wash left heel and foot with antibacterial soap and water like Dial soap. Apply the Aquacel extra to wound base moistened cover with Adaptic and then gauze and absorbent SAP [place] dressing every day Follow-up in 1 week Cultures were obtained and and positive for bacteria and started on ciprofloxacin doing well on the med (2) Pain of left heel: CODE(S): M79.672 - Pain in left foot PLAN: Continue to offload left foot. (3) Anemia: CODE(S): D64.9 - Anemia, unspecified QUALIFIERS: Anemia type: unspecified type Qualified Code(s): D64.9 - Anemia, unspecified (4) Malnutrition: CODE(S): E46 - Unspecified protein-calorie malnutrition QUALIFIERS: Malnutrition type: protein-calorie malnutrition Protein-calorie malnutrition severity: unspecified severity Qualified Code(s): E46 - Unspecified protein-calorie malnutrition PLAN: Continues to drink protein shakes daily
[2024-10-28 10:26] VITALS: BP 123/81; PULSE 81; RESP 18; TEMP 35.9
--- NOTE | 2024-10-28 11:40 | PCM.WC.PN ---
History of Present Illness Date of Service: 10/28/24 Chief Complaint: Left heel decubitus ulcer History of Wound: 84-year-old white male who was in the hospital for a left hip replacement in August and he developed a left heel from digging into the sheets turning and moving blister that opened. They have only been using [id number] antibiotic ointment on it. Patient history of anemia. Saw their doctor and she referred them to the wound center. Progress of Wound: This week the wound looks improved from last week devitalized tissue and slough is off and the edges are nice and flat. Cultures came back positive and started patient on ciprofloxacin he is to continue taking that it is healing the wound well. Insurance refuses the EpiFix they want more of an ulcer not a pressure ulcer. We will stop the Aquacel Ag and we will change him to fibber call with an Jasper SAP foam dressing over top and follow him up in a week measurements are smaller. Subjective Subjective Patient is agreeable to plan Objective Data Objective Data So insurance refuses to pay for an EpiFix so we will just continue with treatment with the products the Aquacel extra does not need to be because he has no more cleaning out to be done he is good and clean we will start using it for healing with fibrin call and a foam dressing over top and he is to continue offloading. Patient has been taking boost every day so we will check his prealbumin and make sure that it is up and he is to continue eating a healthy diet of fruits vegetables and lots of meat. Vital Signs: Vital Signs Temp Pulse Resp BP 96.7 F L 81 18 123/81 H 10/28/24 10:26 10/28/24 10:26 10/28/24 10:26 10/28/24 10: Weight: 140 lb Lab / Micro Data Attestation: I reviewed the patient's lab results. Physical Exam Const oriented x3 General Appearance: cooperative Exam Limitations: no limitations HEENT normocephalic Eyes PERRL General Eye: normal appearance of both eyes Neck full ROM General: normal visual inspection Resp normal respiratory effort Effort and Inspection: able to speak in complete sentences Auscultation: clear to auscultation bilaterally Cardio regular rate and regular rhythm Palpation: normal PMI Rate: regular rate Rhythm: regular rhythm GI Palpation: soft and no hepatosplenomegaly Back/Spine Cervical Spine: cervical ROM normal Thoracic Spine / Upper Back: normal to inspection Lumbar Spine / Lower Back: normal to inspection Extremity General Extremity: normal exam except as noted Peripheral Pulses: Yes popliteal pulses present Skin no rashes or lesions noted Lesions: no lesions Rashes: no rashes Wound Narrative: Open wound left heel pressure Neuro oriented x3 Gait (Neuro): antalgic Psych Appearance: grossly normal Speech: normal speech Thought Content: normal thought content Judgement: judgement good Debridement Note Debridement Note Wound debrided: Left heel decubitus ulcer Laterality: Left Wound Grade/Stage: Stage II Type of Debridement: Excisional debridement Anesthesia Used: 5% Lidocaine Gel Depth: in the subcutaneous layer Percentage of wound debrided: 100 Instrument Used: 7mm curette Tissue Removed: Fibrin and devitalized tissue Severity: Fat Layer Exposed Bleeding Controlled with: Compression and gauze Post-Debridement Measurements and Additional Note: Post-Debridement Measurements/Treatment - Nurse 1 - General Ulcer Assessment Start: 10/21/24 09:06 Freq: Status: Active Protocol: CHRIS Activity Type Activity Date Activity User E-sign Co-sign Detail Recorded Client Recorded Date Recorded By Document 10/21/24 09:07 [id number] 10/21/24 09:09 RB Document 10/28/24 10:26 RB [id number] 10/28/24 10:31 RB 10/21/24 10/28/24 09:07 10:26 - Today's Visit Information Type of service Follow-up Visit Follow-up Visit (Physician/MATTRESS AND BOXSPRINGS SUPERVISOR (Physician/MATTRESS AND [employer] SUPERVISOR ) ) Arrival Mode Wheelchair Ambulatory Transfer Assistance None None Patient Identification Verified (Name & Yes Yes ) Patient Requires Transmission-Based No Precautions Vital Signs Temperature (97.8 F-99.1 F) 96.6 F L 96.7 F L Temperature Source Temporal Temporal Pulse Rate (60-100) 98 81 Pulse Location Monitor Monitor Respiratory Rate (12-18) 18 18 Respiratory rate source Observation Observation Blood Pressure (90/60-120/80) 111/70 123/81 H Blood Pressure Mean (mm Hg) 83 95 Source Monitor Monitor Position Semi-Fowlers Sitting Blood Pressure Location Left Arm Left Arm History Since Last Visit- (Skip if this is Patient's initial visit) Have you changed medications since your No No last visit? Any new allergies or adverse reactions No No Had a fall/change in ADL's that may No No increase risk of falls Signs or symptoms of abuse and/or No No neglect since last visit Have you been in the hospital since your No No last visit? Has dressing in place as prescribed Yes Yes Has compression in place as prescribed N/A N/A Has offloadiing in place as prescribed N/A N/A Experienced any changes in pain level or No No management Pain Scale: 0-10 Numeric Is Patient Pain Free? Yes Yes - Nurse 1 - General Ulcer Measurement Start: 10/21/24 09:06 Freq: Status: Active Protocol: Activity Type Activity Date Activity User E-sign Co-sign Detail Recorded Client Recorded Date Recorded By Document 10/21/24 09:07 RB [id number] 10/21/24 09:09 RB Document 10/28/24 10:26 RB [id number] 10/28/24 10:31 RB 10/21/24 10/28/24 09:07 10:26 Wound Center Nurse 1 #1 LEFT HEEL -Combined with other wound No No -Current Size (cm) - Length 2.4 2 -Current Size (cm) - Width 2.6 2.5 -Current Size (cm) - Depth 0.1 0.2 -Total Square Cm 6.24 5.0 -Photo Taken Yes -Tunneling No No -Undermining/Tunneling No No -Circular Undermining No No -Exudate Amt Medium Medium -Exudate Type Serosanguineous Serosanguineous -Wound Margin Distinct, Distinct, Outline Outline Attached Attached -Granulation Amt Medium (34-66%) Medium (34-66%) -Granulation Quality [place] Cameron [place] -Slough/Fibrin Yes Yes -Necrosis Amt Small (1-33%) Small (1-33%) -Necrotic Tissue Type Adherent Slough Adherent Slough -Structure Exposed N/A N/A -Texture (Tiffanie-wound Skin Appearance) Assessed, Assessed Scarring -Moisture (Tiffanie-wound Skin Appearance) Assessed Assessed -Color (Tiffanie-wound Skin Appearance) Assessed Assessed -Temperature (Tiffanie-wound Skin No Abnormality No Abnormality Appearance) (Pt Warm) (Pt Warm) -Tenderness on Palpation (Tiffanie-wound No No Skin Appearance) -Ulcer Cleansing Wound Cleanser Wound Cleanser -Foul Odor after Cleansing No No -Anesthetic Used 5% Lidocaine 5% Lidocaine Gel Gel Lower Limb Edema Present Yes Left Calf (cm) 30.2 Left Ankle (cm) 22 - Nurse 2 - General Ulcer CM Notes Start: 10/21/24 09:06 Freq: Status: Active Protocol: Activity Type Activity Date Activity User E-sign Co-sign Detail Recorded Client Recorded Date Recorded By Document 10/21/24 09:16 [facility] [id number] 10/21/24 09:21 [facility] Document 10/28/24 10:36 [facility] [id number] 10/28/24 10:44 [facility] 10/21/24 10/28/24 09:16 10:36 Wound Center Nurse 2 #1 LEFT HEEL -Time 09:16 10:37 -Correct Patient Yes Yes -Correct Side, Site, Position Yes Yes -Correct Procedure Yes Yes -Procedure Performed Yes Yes -Type of Procedure Debridement Debridement -Clinical Debridement Subcutaneous Subcutaneous -Tissue Removed Subcutaneous Subcutaneous -Post Debridement (cm) - Length 2.5 2.2 -Post Debridement (cm) - Width 1.8 2.5 -Post Debridement (cm) - Depth 0.2 0.2 -Total Square (Post) (cm) 4.50 5.50 -Area of Debridement (cm) - Length 2.5 2.2 -Area of Debridement (cm) - Width 1.8 2.5 -Total Square (Area) (cm) 4.50 5.50 -Tunneling No No -Undermining/Tunneling No No -Circular Undermining No No -Wound/Ulcer Outcome Not Healed Not Healed -Ulcer Cleansing Rinsed/ Rinsed/ Irrigated with Irrigated with Saline Saline -Foul Odor after Cleansing No No -Bioengineered Tissue No No -Bleeding Controlled with Pressure Pressure -Treatment Response Procedure Procedure Tolerated Well Tolerated Well -Debridement - Subq, 1st 20sq cm Yes Yes Pain Scale: 0-10 Numeric Is Patient Pain Free? Yes Yes - Nurse 3 - General Ulcer D/C NN Start: 10/21/24 09:06 Freq: Status: Active Protocol: Activity Type Activity Date Activity User E-sign Co-sign Detail Recorded Client Recorded Date Recorded By Document 10/21/24 09:35 RB [id number] 10/21/24 09:36 RB Document 10/28/24 10:53 [id number] 10/28/24 10:53 10/21/24 10/28/24 09:35 10:53 Wound Care Center Nurse 3 #1 LEFT HEEL -Ulcer Cleansing Rinsed/ Not Cleansed Irrigated with Saline -Foul Odor after Cleansing No -Primary Dressing Applied Aquacel AG 2x2, Fibracol Plus NonAdherent 4x4,Silicone Contact Layer, Border Foam 4x4 Silicone Border Foam 4x4 -Aquacel AG 2x2 1 -Fibracol Plus 4x4 2 -Silicone Border Foam 4x4 1 1 LLE -Lotion applied to leg before No compression wrap -Tubular Bandage Double Layer -Size of Tubigrip Used Size D -Size D ($) 2 -Stockings Yes: pt has own tubigrip from home Treatment Response Procedure Tolerated Well Pain Scale: 0-10 Numeric Is Patient Pain Free? Yes Yes WC - Visit Discharge Discharge Condition Stable Stable Ambulatory Status Wheelchair Walker Transportation Private Auto Private Auto Accompanied by Medication Reconcilliation completed & No provided to patient/care provider Clinical Summary of Care Provided Yes Yes Assessment/Plan Assessment/Plan (1) Decubitus ulcer of left heel, stage 2: CODE(S): L89.622 - Pressure ulcer of left heel, stage 2 PLAN: Wash left heel and foot with antibacterial soap and water like Dial soap. Apply Fibracol to wound base moistened cover with Adaptic and then gauze and absorbent SAP Jasper dressing every day Follow-up in 1 week Cultures were positive for bacteria and started on ciprofloxacin doing well on the med we will finish by next week. (2) Pain of left heel: CODE(S): M79.672 - Pain in left foot PLAN: Continue to offload left foot. (3) Anemia: CODE(S): D64.9 - Anemia, unspecified QUALIFIERS: Anemia type: unspecified type Qualified Code(s): D64.9 - Anemia, unspecified (4) Malnutrition: CODE(S): E46 - Unspecified protein-calorie malnutrition QUALIFIERS: Malnutrition type: protein-calorie malnutrition Protein-calorie malnutrition severity: unspecified severity Qualified Code(s): E46 - Unspecified protein-calorie malnutrition PLAN: Continues to drink protein shakes daily
[2024-11-04 09:51] VITALS: BP 120/80; PULSE 83; RESP 18; TEMP 36.1
--- NOTE | 2024-11-04 10:43 | PCM.WC.PN ---
History of Present Illness Date of Service: 11/04/24 Chief Complaint: Left heel decubitus ulcer History of Wound: 84-year-old white male who was in the hospital for a left hip replacement in August and he developed a left heel from digging into the sheets turning and moving blister that opened. They have only been using [id number] antibiotic ointment on it. Patient history of anemia. Saw their doctor and she referred them to the wound center. Progress of Wound: This week the wound looks improved slightly from last week devitalized tissue and slough is still in the center edges are getting better but still have some very dried edges that need to be debrided every week. Patient is finishing his antibiotics today. Insurance refuses the EpiFix they want more of an ulcer not a pressure ulcer. Subjective Subjective Patient is not actually offloading as well as he should be he walks on it at least to the bathroom and to the kitchen his states unknown how many times a day he is not elevating like we would like him also Objective Data Objective Data So offloading is a big problem we will need to get going we are trying to switch his product because he is just not cleaning it out it is not getting down and getting that slough and not getting it bleed or getting it to clean out any at that area yet. Will try Mariam this time and see if that makes a difference moistened with the Adaptic and everything on top of it and I suggested he offload better like not walking on it and he is frustrated because physical therapy wants him to walk on the hip for the hip care but I said this wound will never heal up we just keep walking on it. Still drinking boost and circulation and skin color and foot look good there is no swelling and I do not think he needs studies I do not think that is the issue I think it is more offloading needs to be done. Vital Signs: Vital Signs Temp Pulse Resp BP O2 Del Method 97 F L 83 18 120/80 Room Air 11/04/24 09:51 11/04/24 09:51 11/04/24 09:51 11/04/24 09:51 11/04/24 09:51 Oxygen Delivery Method Room Air Weight: 140 lb Lab / Micro Data Attestation: I reviewed the patient's lab results. Debridement Note Debridement Note Wound debrided: Left heel decubitus ulcer Laterality: Left Wound Grade/Stage: Stage II Type of Debridement: Excisional debridement Anesthesia Used: 5% Lidocaine Gel Depth: in the subcutaneous layer Percentage of wound debrided: 100 Instrument Used: 7mm curette Tissue Removed: Fibrin and devitalized tissue Severity: Fat Layer Exposed Bleeding Controlled with: Compression and gauze Post-Debridement Measurements and Additional Note: Post-Debridement Measurements/Treatment - Nurse 1 - General Ulcer Assessment Start: 10/21/24 09:06 Freq: Status: Active Protocol: CHRIS Activity Type Activity Date Activity User E-sign Co-sign Detail Recorded Client Recorded Date Recorded By Document 10/21/24 09:07 RB [id number] 10/21/24 09:09 RB Document 10/28/24 10:26 RB [id number] 10/28/24 10:31 RB Document 11/04/24 09:51 MT [id number] 11/04/24 09:57 MT 10/21/24 10/28/24 11/04/24 09:07 10:26 09:51 - Today's Visit Information Type of service Follow-up Visit Follow-up Visit Initial Visit (Physician/FUR DRESSING SUPERVISOR (Physician/FUR DRESSING SUPERVISOR ) ) Arrival Mode Wheelchair Ambulatory Ambulatory Transfer Assistance None None Patient Identification Verified (Name & Yes Yes Yes ) Patient Requires Transmission-Based No Precautions Safety Precautions Fall Prevention Vital Signs Temperature (97.8 F-99.1 F) 96.6 F L 96.7 F L 97 F L Temperature Source Temporal Temporal Temporal Pulse Rate (60-100) 98 81 83 Pulse Location Monitor Monitor Monitor Respiratory Rate (12-18) 18 18 18 Respiratory rate source Observation Observation Observation Oxygen Delivery Method Room Air Blood Pressure (90/60-120/80) 111/70 123/81 H 120/80 Blood Pressure Mean (mm Hg) 83 95 93 Source Monitor Monitor Monitor Position Semi-Fowlers Sitting Sitting Blood Pressure Location Left Arm Left Arm Left Arm History Since Last Visit- (Skip if this is Patient's initial visit) Have you changed medications since your No No last visit? Any new allergies or adverse reactions No No Had a fall/change in ADL's that may No No increase risk of falls Signs or symptoms of abuse and/or No No neglect since last visit Have you been in the hospital since your No No last visit? Has dressing in place as prescribed Yes Yes Yes Has compression in place as prescribed N/A N/A Yes Has offloadiing in place as prescribed N/A N/A Yes Experienced any changes in pain level or No No Yes management Left Footwear Slipper Right Footwear Slipper Pain Scale: 0-10 Numeric Is Patient Pain Free? Yes Yes Yes WC - Nurse 1 - General Ulcer Measurement Start: 10/21/24 09:06 Freq: Status: Active Protocol: Activity Type Activity Date Activity User E-sign Co-sign Detail Recorded Client Recorded Date Recorded By Document 10/21/24 09:07 RB [id number] 10/21/24 09:09 RB Document 10/28/24 10:26 RB [id number] 10/28/24 10:31 RB Document 11/04/24 09:51 MT [id number] 11/04/24 09:57 MT 10/21/24 10/28/24 11/04/24 09:07 10:26 09:51 Wound Center Nurse 1 #1 LEFT HEEL -Combined with other wound No No -Current Size (cm) - Length 2.4 2 2.1 -Current Size (cm) - Width 2.6 2.5 2.5 -Current Size (cm) - Depth 0.1 0.2 0.1 -Total Square Cm 6.24 5.0 5.25 -Date of Last Picture (Recall this 11/04/24 field) -Photo Taken Yes Yes -Tunneling No No No -Undermining/Tunneling No No No -Circular Undermining No No No -Exudate Amt Medium Medium Medium -Exudate Type Serosanguineous Serosanguineous Purulent -Wound Margin Distinct, Distinct, Thickened & Outline Outline Rolled Under Attached Attached -Granulation Amt Medium (34-66%) Medium (34-66%) Small (1-33%) -Granulation Quality Franquez Franquez Pale,Franquez -Slough/Fibrin Yes Yes -Necrosis Amt Small (1-33%) Small (1-33%) Large (67-100%) -Necrotic Tissue Type Adherent Slough Adherent Slough Adherent Slough -Structure Exposed N/A N/A -Texture (Tiffanie-wound Skin Appearance) Assessed, Assessed Assessed Scarring -Moisture (Tiffanie-wound Skin Appearance) Assessed Assessed Assessed -Color (Tiffanie-wound Skin Appearance) Assessed Assessed Assessed -Temperature (Tiffanie-wound Skin No Abnormality No Abnormality No Abnormality Appearance) (Pt Warm) (Pt Warm) (Pt Warm) -Tenderness on Palpation (Tiffanie-wound No No No Skin Appearance) -Ulcer Cleansing Wound Cleanser Wound Cleanser Soap and Water -Foul Odor after Cleansing No No No -Anesthetic Used 5% Lidocaine 5% Lidocaine 5% Lidocaine Gel Gel Gel Lower Limb Edema Present Yes Left Calf (cm) 30.2 30 Left Ankle (cm) 22 23 WC - Nurse 2 - General Ulcer CM Notes Start: 10/21/24 09:06 Freq: Status: Active Protocol: Activity Type Activity Date Activity User E-sign Co-sign Detail Recorded Client Recorded Date Recorded By Document 10/21/24 09:16 [facility] [id number] 10/21/24 09:21 [place] Document 10/28/24 10:36 [facility] [id number] 10/28/24 10:44 [facility] Document 11/04/24 10:03 [facility] [id number] 11/04/24 10:11 [facility] 10/21/24 10/28/24 11/04/24 09:16 10:36 10:03 Wound Center Nurse 2 #1 LEFT HEEL -Time 09:16 10:37 10:03 -Correct Patient Yes Yes Yes -Correct Side, Site, Position Yes Yes Yes -Correct Procedure Yes Yes Yes -Procedure Performed Yes Yes Yes -Type of Procedure Debridement Debridement Debridement -Clinical Debridement Subcutaneous Subcutaneous Subcutaneous -Tissue Removed Subcutaneous Subcutaneous Subcutaneous -Post Debridement (cm) - Length 2.5 2.2 2.4 -Post Debridement (cm) - Width 1.8 2.5 2.3 -Post Debridement (cm) - Depth 0.2 0.2 0.2 -Total Square (Post) (cm) 4.50 5.50 5.52 -Area of Debridement (cm) - Length 2.5 2.2 2.4 -Area of Debridement (cm) - Width 1.8 2.5 2.3 -Total Square (Area) (cm) 4.50 5.50 5.52 -Tunneling No No No -Undermining/Tunneling No No No -Circular Undermining No No No -Wound/Ulcer Outcome Not Healed Not Healed Not Healed -Ulcer Cleansing Rinsed/ Rinsed/ Rinsed/ Irrigated with Irrigated with Irrigated with Saline Saline Saline -Foul Odor after Cleansing No No No -Bioengineered Tissue No No No -Bleeding Controlled with Pressure Pressure Pressure -Treatment Response Procedure Procedure Procedure Tolerated Well Tolerated Well Tolerated Well -Debridement - Subq, 1st 20sq cm Yes Yes Yes Pain Scale: 0-10 Numeric Is Patient Pain Free? Yes Yes Yes - Nurse 3 - General Ulcer D/C NN Start: 10/21/24 09:06 Freq: Status: Active Protocol: Activity Type Activity Date Activity User E-sign Co-sign Detail Recorded Client Recorded Date Recorded By Document 10/21/24 09:35 RB [id number] 10/21/24 09:36 RB Document 10/28/24 10:53 GM [id number] 10/28/24 10:53 GM Document 11/04/24 10:20 DL [id number] 11/04/24 10:22 DL 10/21/24 10/28/24 11/04/24 09:35 10:53 10:20 Wound Care Center Nurse 3 #1 LEFT HEEL -Ulcer Cleansing Rinsed/ Not Cleansed Rinsed/ Irrigated with Irrigated with Saline Saline -Foul Odor after Cleansing No No -Primary Dressing Applied Aquacel AG 2x2, Fibracol Plus NonAdherent NonAdherent 4x4,Silicone Contact Layer, Contact Layer, Border Foam 4x4 Promogran Silicone Border Mariam Matter, Foam 4x4 Silicone Border Foam 4x4 -Aquacel AG 2x2 1 -Fibracol Plus 4x4 2 -Promogran Mariam Matter 1 -Silicone Border Foam 4x4 1 1 1 LLE -Lotion applied to leg before No compression wrap -Tubular Bandage Double Layer -Size of Tubigrip Used Size D -Size D ($) 2 -Stockings Yes: pt has own tubigrip from home -Other double tubigrip Treatment Response Procedure Procedure Tolerated Well Tolerated Well Pain Scale: 0-10 Numeric Is Patient Pain Free? Yes Yes Yes - Visit Discharge Discharge Condition Stable Stable Stable Ambulatory Status Wheelchair Walker Ambulatory, Wheelchair Transportation Private Auto Private Auto Private Auto Accompanied by Medication Reconcilliation completed & No provided to patient/care provider Clinical Summary of Care Provided Yes Yes Facility Type Home Health Orders Sent Yes Assessment/Plan Assessment/Plan (1) Decubitus ulcer of left heel, stage 2: CODE(S): L89.622 - Pressure ulcer of left heel, stage 2 PLAN: Wash left heel and foot with antibacterial soap and water like Dial soap. Apply Fibracol to wound base moistened cover with Adaptic and then gauze and absorbent SAP Edwall dressing every day Follow-up in 1 week Cultures were positive for bacteria and started on ciprofloxacin doing well on the med we will finish by next week. (2) Pain of left heel: CODE(S): M79.672 - Pain in left foot PLAN: Continue to offload left foot. (3) Anemia: CODE(S): D64.9 - Anemia, unspecified QUALIFIERS: Anemia type: unspecified type Qualified Code(s): D64.9 - Anemia, unspecified (4) Malnutrition: CODE(S): E46 - Unspecified protein-calorie malnutrition QUALIFIERS: Malnutrition type: protein-calorie malnutrition Protein-calorie malnutrition severity: unspecified severity Qualified Code(s): E46 - Unspecified protein-calorie malnutrition PLAN: Continues to drink protein shakes daily
--- NOTE | 2024-11-05 10:23 | WC ---
PHOTO 11/04/24 LEFT HEEL
[2024-11-11 10:03] VITALS: BP 114/71; PULSE 81; RESP 18; TEMP 36.1
--- NOTE | 2024-11-11 12:10 | PCM.WC.PN ---
History of Present Illness Date of Service: 11/11/24 Chief Complaint: Left heel decubitus ulcer History of Wound: 84-year-old white male who was in the hospital for a left hip replacement in August and he developed a left heel from digging into the sheets turning and moving blister that opened. They have only been using [id number] antibiotic ointment on it. Patient history of anemia. Saw their doctor and she referred them to the wound center. Progress of Wound: This week the wound has a couple of new islands of new skin in the center. Still has some necrotic yellow slough that we are going to take a blade and knife to today. Otherwise doing better it is only small slightly smaller does not offload good enough he keeps walking on it. Patient is finished with antibiotics. Subjective Subjective Patient is okay with everything he just is frustrated that he could not get the epi fix from his insurance company and that is can take longer to heal. Objective Data Objective Data Healing slowly but I think this time with the sharps to take out most of the bad tissue and that new islands of new tissue run using Mariam for the last week I agree that we will continue with Mariam and see if that helps with keeping it clean for another week. And reiterating to patient that he needs to offload better and stay off his foot not walk on it. Vital Signs: Vital Signs Temp Pulse Resp BP O2 Del Method 97 F L 81 18 114/71 Room Air 11/11/24 10:03 11/11/24 10:03 11/11/24 10:03 11/11/24 10:03 11/11/24 10:03 Oxygen Delivery Method Room Air Weight: 140 lb Lab / Micro Data Attestation: I reviewed the patient's lab results. Physical Exam Const oriented x3 General Appearance: cooperative Exam Limitations: no limitations HEENT normocephalic Eyes PERRL General Eye: normal appearance of both eyes Neck full ROM General: normal visual inspection Resp normal respiratory effort Effort and Inspection: able to speak in complete sentences Auscultation: clear to auscultation bilaterally Cardio regular rate and regular rhythm Palpation: normal PMI Rate: regular rate Rhythm: regular rhythm GI Palpation: soft and no hepatosplenomegaly Back/Spine Cervical Spine: cervical ROM normal Thoracic Spine / Upper Back: normal to inspection Lumbar Spine / Lower Back: normal to inspection Extremity General Extremity: normal exam except as noted Peripheral Pulses: Yes popliteal pulses present Skin no rashes or lesions noted Lesions: no lesions Rashes: no rashes Wound Narrative: Open wound left heel pressure Neuro oriented x3 Gait (Neuro): antalgic Psych Appearance: grossly normal Speech: normal speech Thought Content: normal thought content Judgement: judgement good Debridement Note Debridement Note Wound debrided: Left heel decubitus ulcer Laterality: Left Wound Grade/Stage: Stage II Type of Debridement: Excisional debridement Anesthesia Used: 5% Lidocaine Gel Depth: in the subcutaneous layer Percentage of wound debrided: 100 Instrument Used: 7mm curette, #15 blade and Forceps Tissue Removed: Fibrin and devitalized tissue Severity: Fat Layer Exposed Amount of bleeding with debridement: Mild Bleeding Controlled with: Compression and gauze Patient tolerated procedure: Patient tolerated procedure well Post-Debridement Measurements and Additional Note: Post-Debridement Measurements/Treatment - Nurse 1 - General Ulcer Assessment Start: 10/21/24 09:06 Freq: Status: Active Protocol: CHRIS Activity Type Activity Date Activity User E-sign Co-sign Detail Recorded Client Recorded Date Recorded By Document 10/21/24 09:07 RB [id number] 10/21/24 09:09 RB Document 10/28/24 10:26 RB [id number] 10/28/24 10:31 RB Document 11/04/24 09:51 MT [id number] 11/04/24 09:57 MT Document 11/11/24 10:03 MT [id number] 11/11/24 10:10 MT 10/21/24 10/28/24 11/04/24 09:07 10:26 09:51 - Today's Visit Information Type of service Follow-up Visit Follow-up Visit Initial Visit (Physician/ELECTRICAL APPLIANCE REPAIRER (Physician/ELECTRICAL APPLIANCE REPAIRER ) ) Arrival Mode Wheelchair Ambulatory Ambulatory Transfer Assistance None None Accompanied by Patient Identification Verified (Name & Yes Yes Yes ) Patient Requires Transmission-Based No Precautions Safety Precautions Fall Prevention Vital Signs Temperature (97.8 F-99.1 F) 96.6 F L 96.7 F L 97 F L Temperature Source Temporal Temporal Temporal Pulse Rate (60-100) 98 81 83 Pulse Location Monitor Monitor Monitor Respiratory Rate (12-18) 18 18 18 Respiratory rate source Observation Observation Observation Oxygen Delivery Method Room Air Blood Pressure (90/60-120/80) 111/70 123/81 H 120/80 Blood Pressure Mean (mm Hg) 83 95 93 Source Monitor Monitor Monitor Position Semi-Fowlers Sitting Sitting Blood Pressure Location Left Arm Left Arm Left Arm History Since Last Visit- (Skip if this is Patient's initial visit) Have you changed medications since your No No last visit? Any new allergies or adverse reactions No No Had a fall/change in ADL's that may No No increase risk of falls Signs or symptoms of abuse and/or No No neglect since last visit Have you been in the hospital since your No No last visit? Has dressing in place as prescribed Yes Yes Yes Has compression in place as prescribed N/A N/A Yes Has offloadiing in place as prescribed N/A N/A Yes Experienced any changes in pain level or No No Yes management Left Footwear Slipper Right Footwear Slipper Pain Scale: 0-10 Numeric Is Patient Pain Free? Yes Yes Yes 11/11/24 10:03 - Today's Visit Information Type of service Follow-up Visit (Physician/ELECTRICAL APPLIANCE REPAIRER ) Arrival Mode Wheelchair Transfer Assistance Accompanied by Patient Identification Verified (Name & Yes ) Patient Requires Transmission-Based Precautions Safety Precautions Fall Prevention Vital Signs Temperature (97.8 F-99.1 F) 97 F L Temperature Source Temporal Pulse Rate (60-100) 81 Pulse Location Monitor Respiratory Rate (12-18) 18 Respiratory rate source Observation Oxygen Delivery Method Room Air Blood Pressure (90/60-120/80) 114/71 Blood Pressure Mean (mm Hg) 85 Source Monitor Position Sitting Blood Pressure Location Left Arm History Since Last Visit- (Skip if this is Patient's initial visit) Have you changed medications since your last visit? Any new allergies or adverse reactions Had a fall/change in ADL's that may increase risk of falls Signs or symptoms of abuse and/or neglect since last visit Have you been in the hospital since your last visit? Has dressing in place as prescribed Yes Has compression in place as prescribed Yes Has offloadiing in place as prescribed Yes Experienced any changes in pain level or Yes management Left Footwear Surgical Shoe with pressure relief insole Right Footwear Regular Shoe Pain Scale: 0-10 Numeric Is Patient Pain Free? Yes - Nurse 1 - General Ulcer Measurement Start: 10/21/24 09:06 Freq: Status: Active Protocol: Activity Type Activity Date Activity User E-sign Co-sign Detail Recorded Client Recorded Date Recorded By Document 10/21/24 09:07 RB [id number] 10/21/24 09:09 RB Document 10/28/24 10:26 RB [id number] 10/28/24 10:31 RB Document 11/04/24 09:51 MT [id number] 11/04/24 09:57 MT Document 11/11/24 10:03 UT [id number] 11/11/24 10:10 UT 10/21/24 10/28/24 11/04/24 09:07 10:26 09:51 Wound Center Nurse 1 #1 LEFT HEEL -Combined with other wound No No -Current Size (cm) - Length 2.4 2 2.1 -Current Size (cm) - Width 2.6 2.5 2.5 -Current Size (cm) - Depth 0.1 0.2 0.1 -Total Square Cm 6.24 5.0 5.25 -Date of Last Picture (Recall this 11/04/24 field) -Photo Taken Yes Yes -Tunneling No No No -Undermining/Tunneling No No No -Circular Undermining No No No -Exudate Amt Medium Medium Medium -Exudate Type Serosanguineous Serosanguineous Purulent -Wound Margin Distinct, Distinct, Thickened & Outline Outline Rolled Under Attached Attached -Granulation Amt Medium (34-66%) Medium (34-66%) Small (1-33%) -Granulation Quality Reese Reese Pale,Reese -Slough/Fibrin Yes Yes -Necrosis Amt Small (1-33%) Small (1-33%) Large (67-100%) -Necrotic Tissue Type Adherent Slough Adherent Slough Adherent Slough -Structure Exposed N/A N/A -Texture (Tiffanie-wound Skin Appearance) Assessed, Assessed Assessed Scarring -Moisture (Tiffanie-wound Skin Appearance) Assessed Assessed Assessed -Color (Tiffanie-wound Skin Appearance) Assessed Assessed Assessed -Temperature (Tiffanie-wound Skin No Abnormality No Abnormality No Abnormality Appearance) (Pt Warm) (Pt Warm) (Pt Warm) -Tenderness on Palpation (Tiffanie-wound No No No Skin Appearance) -Ulcer Cleansing Wound Cleanser Wound Cleanser Soap and Water -Foul Odor after Cleansing No No No -Anesthetic Used 5% Lidocaine 5% Lidocaine 5% Lidocaine Gel Gel Gel Lower Limb Edema Present Yes Left Calf (cm) 30.2 30 Left Ankle (cm) 22 23 11/11/24 10:03 Wound Center Nurse 1 #1 LEFT HEEL -Combined with other wound -Current Size (cm) - Length 2.2 -Current Size (cm) - Width 2.2 -Current Size (cm) - Depth 0.2 -Total Square Cm 4.84 -Date of Last Picture (Recall this field) -Photo Taken -Tunneling No -Undermining/Tunneling No -Circular Undermining Yes -Exudate Amt Medium -Exudate Type Purulent -Wound Margin Thickened & Rolled Under -Granulation Amt Medium (34-66%) -Granulation Quality Pale,Reese -Slough/Fibrin -Necrosis Amt Medium (34-66%) -Necrotic Tissue Type Adherent Slough -Structure Exposed -Texture (Tiffanie-wound Skin Appearance) Assessed -Moisture (Tiffanie-wound Skin Appearance) Assessed -Color (Tiffanie-wound Skin Appearance) Assessed -Temperature (Tiffanie-wound Skin No Abnormality Appearance) (Pt Warm) -Tenderness on Palpation (Tiffanie-wound No Skin Appearance) -Ulcer Cleansing Rinsed/ Irrigated with Saline -Foul Odor after Cleansing No -Anesthetic Used 5% Lidocaine Gel Lower Limb Edema Present Left Calf (cm) 30 Left Ankle (cm) 22.5 WC - Nurse 2 - General Ulcer CM Notes Start: 10/21/24 09:06 Freq: Status: Active Protocol: Activity Type Activity Date Activity User E-sign Co-sign Detail Recorded Client Recorded Date Recorded By Document 10/21/24 09:16 [facility] [id number] 10/21/24 09:21 [facility] Document 10/28/24 10:36 [facility] [id number] 10/28/24 10:44 [facility] Document 11/04/24 10:03 [facility] [id number] 11/04/24 10:11 [facility] Document 11/11/24 10:20 [facility] [id number] 11/11/24 10:27 BMF 10/21/24 10/28/24 11/04/24 09:16 10:36 10:03 Wound Center Nurse 2 #1 LEFT HEEL -Time 09:16 10:37 10:03 -Correct Patient Yes Yes Yes -Correct Side, Site, Position Yes Yes Yes -Correct Procedure Yes Yes Yes -Procedure Performed Yes Yes Yes -Type of Procedure Debridement Debridement Debridement -Clinical Debridement Subcutaneous Subcutaneous Subcutaneous -Tissue Removed Subcutaneous Subcutaneous Subcutaneous -Post Debridement (cm) - Length 2.5 2.2 2.4 -Post Debridement (cm) - Width 1.8 2.5 2.3 -Post Debridement (cm) - Depth 0.2 0.2 0.2 -Total Square (Post) (cm) 4.50 5.50 5.52 -Area of Debridement (cm) - Length 2.5 2.2 2.4 -Area of Debridement (cm) - Width 1.8 2.5 2.3 -Total Square (Area) (cm) 4.50 5.50 5.52 -Tunneling No No No -Undermining/Tunneling No No No -Circular Undermining No No No -Wound/Ulcer Outcome Not Healed Not Healed Not Healed -Ulcer Cleansing Rinsed/ Rinsed/ Rinsed/ Irrigated with Irrigated with Irrigated with Saline Saline Saline -Foul Odor after Cleansing No No No -Bioengineered Tissue No No No -Bleeding Controlled with Pressure Pressure Pressure -Treatment Response Procedure Procedure Procedure Tolerated Well Tolerated Well Tolerated Well -Debridement - Subq, 1st 20sq cm Yes Yes Yes Pain Scale: 0-10 Numeric Is Patient Pain Free? Yes Yes Yes 11/11/24 10:20 Wound Center Nurse 2 #1 LEFT HEEL -Time 10:21 -Correct Patient Yes -Correct Side, Site, Position Yes -Correct Procedure Yes -Procedure Performed Yes -Type of Procedure Debridement -Clinical Debridement Subcutaneous -Tissue Removed Subcutaneous -Post Debridement (cm) - Length 2.2 -Post Debridement (cm) - Width 2.5 -Post Debridement (cm) - Depth 0.2 -Total Square (Post) (cm) 5.50 -Area of Debridement (cm) - Length 2.2 -Area of Debridement (cm) - Width 2.5 -Total Square (Area) (cm) 5.50 -Tunneling No -Undermining/Tunneling No -Circular Undermining No -Wound/Ulcer Outcome Not Healed -Ulcer Cleansing Rinsed/ Irrigated with Saline -Foul Odor after Cleansing No -Bioengineered Tissue No -Bleeding Controlled with Pressure -Treatment Response Procedure Tolerated Well -Debridement - Subq, 1st 20sq cm Yes Pain Scale: 0-10 Numeric Is Patient Pain Free? Yes WC - Nurse 3 - General Ulcer D/C NN Start: 10/21/24 09:06 Freq: Status: Active Protocol: Activity Type Activity Date Activity User E-sign Co-sign Detail Recorded Client Recorded Date Recorded By Document 10/21/24 09:35 RB [id number] 10/21/24 09:36 RB Document 10/28/24 10:53 GM [id number] 10/28/24 10:53 GM Document 11/04/24 10:20 DL [id number] 11/04/24 10:22 DL 10/21/24 10/28/24 11/04/24 09:35 10:53 10:20 Wound Care Center Nurse 3 #1 LEFT HEEL -Ulcer Cleansing Rinsed/ Not Cleansed Rinsed/ Irrigated with Irrigated with Saline Saline -Foul Odor after Cleansing No No -Primary Dressing Applied Aquacel AG 2x2, Fibracol Plus NonAdherent NonAdherent 4x4,Silicone Contact Layer, Contact Layer, Border Foam 4x4 Promogran Silicone Border Mariam Matter, Foam 4x4 Silicone Border Foam 4x4 -Aquacel AG 2x2 1 -Fibracol Plus 4x4 2 -Promogran Mariam Matter 1 -Silicone Border Foam 4x4 1 1 1 LLE -Lotion applied to leg before No compression wrap -Tubular Bandage Double Layer -Size of Tubigrip Used Size D -Size D ($) 2 -Stockings Yes: pt has own tubigrip from home -Other double tubigrip Treatment Response Procedure Procedure Tolerated Well Tolerated Well Pain Scale: 0-10 Numeric Is Patient Pain Free? Yes Yes Yes WC - Visit Discharge Discharge Condition Stable Stable Stable Ambulatory Status Wheelchair Walker Ambulatory, Wheelchair Transportation Private Auto Private Auto Private Auto Accompanied by Medication Reconcilliation completed & No provided to patient/care provider Clinical Summary of Care Provided Yes Yes Facility Type Home Health Orders Sent Yes Assessment/Plan Assessment/Plan (1) Decubitus ulcer of left heel, stage 2: CODE(S): L89.622 - Pressure ulcer of left heel, stage 2 PLAN: Wash left heel and foot with antibacterial soap and water like Dial soap. Apply Mariam to wound base moistened cover with Adaptic and then absorbent SAP [place] dressing every day Follow-up in 1 week (2) Pain of left heel: CODE(S): M79.672 - Pain in left foot PLAN: Continue to offload left foot. (3) Anemia: CODE(S): D64.9 - Anemia, unspecified QUALIFIERS: Anemia type: unspecified type Qualified Code(s): D64.9 - Anemia, unspecified (4) Malnutrition: CODE(S): E46 - Unspecified protein-calorie malnutrition QUALIFIERS: Malnutrition type: protein-calorie malnutrition Protein-calorie malnutrition severity: unspecified severity Qualified Code(s): E46 - Unspecified protein-calorie malnutrition PLAN: Continues to drink protein shakes daily
== END 2024-11-14 23:59 | disposition home or self-care (01) ==
LOC: WC 10:00
PROVIDERS: PCP Internal Medicine; Referring Provider Physician Assistant; Visit Provider Nurse Practitioner
DX: L89.622 Pressure ulcer of left heel, stage 2 (principal); S90.822S Blister (nonthermal), left foot, sequela; X58.XXXS Exposure to other specified factors, sequela; Z79.2 Long term (current) use of antibiotics; Z79.899 Other long term (current) drug therapy
CPT/HCPCS: 11042

== ENCOUNTER → 2024-11-30 | Outpatient (CLI) | payer MEDICARE, SELFPAY ==
--- NOTE | 2024-11-30 15:10 | RAD_ITS ---
PROCEDURE: FOOT 2 VIEWS 11/30/2024 REASON FOR EXAM: WOUND TECHNIQUE: FOOT 2 VIEWS COMPARISON: None. FINDINGS: Soft tissue edema and swelling overlying the posterior aspect of the calcaneum. Mild osteopenia of the visualized bones. Degenerative joint disease. No fracture or dislocation is seen. No lytic or blastic bone lesion is noted. RAD/Foot 2 Views IMPRESSION: No radiographic evidence of osteomyelitis. [facility]
== END | disposition home or self-care (01) ==
LOC: RAD 15:07
PROVIDERS: PCP Internal Medicine; Referring Provider Nurse Practitioner; Visit Provider Nurse Practitioner
DX: L89.622 Pressure ulcer of left heel, stage 2 (principal)
CPT/HCPCS: 73620

== ENCOUNTER 2024-12-09 10:00 | Outpatient (RCR) | payer MEDICARE, SELFPAY ==
[2024-11-15 00:20] VITALS: BP 114/71; PULSE 81; RESP 18; TEMP 36.1
[2024-11-18 10:12] VITALS: BP 133/79; PULSE 84; RESP 18; TEMP 36.2
--- NOTE | 2024-11-18 10:48 | PN.PCM_ITS ---
History of Present Illness Date of Service: 11/18/24 Chief Complaint: Left heel decubitus ulcer History of Wound: 84-year-old white male who was in the hospital for a left hip replacement in August and he developed a left heel from digging into the sheets turning and moving blister that opened. They have only been using [id number] antibiotic ointment on it. Patient history of anemia. Saw their doctor and she referred them to the wound center. Progress of Wound: Left heel measurements are much different a little bit better and with their depth but he still gets loaded with a lot of junk [place] that I debrided out with sharps and cleaned it up this time organ to use Dakin's soaked Mariam in the wound base and see if that works better and follow him up in a week and see if we can get some headway he needs to do better add offloading also. Continues to eat and drink boost along with his regular meals Subjective Subjective Patient is agreeable to plan so is his is doing the dressings she is doing a good job. Objective Data Objective Data No further sign of infection though there is a lot of accumulation of slough in the base of the wound that has to be cleaned out every week does get islands of new skin are developing in the base will continue using Dakin's soaked Mariam this week and see how that works and follow him up in another week and hopefully offloads better. Vital Signs: Vital Signs Temp Pulse Resp BP 97.2 F L 84 18 133/79 H 11/18/24 10:12 11/18/24 10:12 11/18/24 10:12 11/18/24 10:12 Weight: 140 lb Lab / Micro Data Attestation: I reviewed the patient's lab results. Physical Exam Const oriented x3 General Appearance: cooperative Exam Limitations: no limitations HEENT normocephalic Eyes PERRL General Eye: normal appearance of both eyes Neck full ROM General: normal visual inspection Resp normal respiratory effort Effort and Inspection: able to speak in complete sentences Auscultation: clear to auscultation bilaterally Cardio regular rate and regular rhythm Palpation: normal PMI Rate: regular rate Rhythm: regular rhythm GI Palpation: soft and no hepatosplenomegaly Back/Spine Cervical Spine: cervical ROM normal Thoracic Spine / Upper Back: normal to inspection Lumbar Spine / Lower Back: normal to inspection Extremity General Extremity: normal exam except as noted Peripheral Pulses: Yes popliteal pulses present Skin no rashes or lesions noted Lesions: no lesions Rashes: no rashes Wound Narrative: Open wound left heel pressure Neuro oriented x3 Gait (Neuro): antalgic Psych Appearance: grossly normal Speech: normal speech Thought Content: normal thought content Judgement: judgement good Debridement Note Debridement Note Wound debrided: Left heel decubitus ulcer Laterality: Left Wound Grade/Stage: Stage II Type of Debridement: Excisional debridement Anesthesia Used: 5% Lidocaine Gel Depth: in the subcutaneous layer Percentage of wound debrided: 100 Instrument Used: #15 blade and Forceps Tissue Removed: Fibrin and devitalized tissue Severity: Fat Layer Exposed Amount of bleeding with debridement: Mild Bleeding Controlled with: Compression and gauze Patient tolerated procedure: Patient tolerated procedure well Post-Debridement Measurements and Additional Note: Post-Debridement Measurements/Treatment - Nurse 1 - General Ulcer Assessment Start: 11/18/24 10:12 Freq: Status: Active Protocol: CHRIS Activity Type Activity Date Activity User E-sign Co-sign Detail Recorded Client Recorded Date Recorded By Document 11/18/24 10:12 [id number] 11/18/24 10:14 KARLOS 11/18/24 10:12 - Today's Visit Information Type of service Follow-up Visit (Physician/[employer] ) Arrival Mode Wheelchair Transfer Assistance None Patient Identification Verified (Name & Yes ) Patient Requires Transmission-Based No Precautions Vital Signs Temperature (97.8 F-99.1 F) 97.2 F L Temperature Source Temporal Pulse Rate (60-100) 84 Pulse Location Monitor Respiratory Rate (12-18) 18 Respiratory rate source Observation Blood Pressure (90/60-120/80) 133/79 H Blood Pressure Mean (mm Hg) 97 Source Monitor Position Sitting Blood Pressure Location Left Arm History Since Last Visit- (Skip if this is Patient's initial visit) Have you changed medications since your No last visit? Any new allergies or adverse reactions No Had a fall/change in ADL's that may No increase risk of falls Signs or symptoms of abuse and/or No neglect since last visit Have you been in the hospital since your No last visit? Has dressing in place as prescribed Yes Has compression in place as prescribed N/A Has offloadiing in place as prescribed Yes Experienced any changes in pain level or No management Left Footwear Slipper Right Footwear Slipper Pain Scale: 0-10 Numeric Is Patient Pain Free? No LLE -Description Aching -Intensity 3 -Duration (hours) Acute -Alleviating Factors/Interventions Medication -Effectiveness of Alleviating Factor/ Moderately Intervention effective WC - Nurse 1 - General Ulcer Measurement Start: 11/18/24 10:12 Freq: Status: Active Protocol: Activity Type Activity Date Activity User E-sign Co-sign Detail Recorded Client Recorded Date Recorded By Document 11/18/24 10:12 [id number] 11/18/24 10:14 11/18/24 10:12 Wound Center Nurse 1 #1 LEFT HEEL -Combined with other wound No -Combined with (Name of Wound-Exactly 2.4 as it is documented) -Current Size (cm) - Length 2.4 -Current Size (cm) - Width 0.2 -Total Square Cm 0.48 -Photo Taken Yes -Tunneling No -Undermining/Tunneling No -Circular Undermining No -Exudate Amt Medium -Exudate Type Serosanguineous -Wound Margin Thickened & Rolled Under -Granulation Amt Medium (34-66%) -Granulation Quality Saline -Slough/Fibrin Yes -Necrosis Amt Medium (34-66%) -Necrotic Tissue Type Adherent Slough -Structure Exposed N/A -Texture (Tiffanie-wound Skin Appearance) Assessed,Callus -Moisture (Tiffanie-wound Skin Appearance) Assessed -Color (Tiffanie-wound Skin Appearance) Assessed -Temperature (Tiffanie-wound Skin No Abnormality Appearance) (Pt Warm) -Tenderness on Palpation (Tiffanie-wound No Skin Appearance) -Ulcer Cleansing Wound Cleanser -Foul Odor after Cleansing No -Anesthetic Used 5% Lidocaine Gel WC - Nurse 2 - General Ulcer CM Notes Start: 11/18/24 10:12 Freq: Status: Active Protocol: Activity Type Activity Date Activity User E-sign Co-sign Detail Recorded Client Recorded Date Recorded By Document 11/18/24 10:25 [facility] [id number] 11/18/24 10:32 [facility] 11/18/24 10:25 Wound Center Nurse 2 -Time 10:25 -Correct Patient Yes -Correct Side, Site, Position Yes -Correct Procedure Yes -Procedure Performed Yes -Type of Procedure Debridement -Clinical Debridement Subcutaneous -Tissue Removed Subcutaneous -Post Debridement (cm) - Length 2.2 -Post Debridement (cm) - Width 2.4 -Post Debridement (cm) - Depth 0.3 -Total Square (Post) (cm) 5.28 -Area of Debridement (cm) - Length 2.2 -Area of Debridement (cm) - Width 2.4 -Total Square (Area) (cm) 5.28 -Tunneling No -Undermining/Tunneling No -Circular Undermining No -Wound/Ulcer Outcome Not Healed -Ulcer Cleansing Rinsed/ Irrigated with Saline -Foul Odor after Cleansing No -Bioengineered Tissue No -Bleeding Controlled with Pressure -Treatment Response Procedure Tolerated Well -Debridement - Subq, 1st 20sq cm Yes Pain Scale: 0-10 Numeric Is Patient Pain Free? Yes Assessment/Plan Assessment/Plan (1) Decubitus ulcer of left heel, stage 2: CODE(S): L89.622 - Pressure ulcer of left heel, stage 2 PLAN: Wash left heel and foot with antibacterial soap and water like Dial soap. Apply Mariam to wound base moistened with Dakin's cover with Adaptic and then absorbent SAP [place] dressing every day Follow-up in 1 week Continue to offload and to continue boost supplements (2) Pain of left heel: CODE(S): M79.672 - Pain in left foot PLAN: Continue to offload left foot. (3) Anemia: CODE(S): D64.9 - Anemia, unspecified QUALIFIERS: Anemia type: unspecified type Qualified Code(s): D64.9 - Anemia, unspecified (4) Malnutrition: CODE(S): E46 - Unspecified protein-calorie malnutrition QUALIFIERS: Malnutrition type: protein-calorie malnutrition Protein-calorie malnutrition severity: unspecified severity Qualified Code(s): E46 - Unspecified protein-calorie malnutrition PLAN: Continues to drink protein shakes daily
--- NOTE | 2024-11-18 14:19 | WC ---
PHOTO 11/18/24 LEFT HEEL
[2024-11-25 10:00] VITALS: BP 127/77; PULSE 80; RESP 16; TEMP 36.4
--- NOTE | 2024-11-25 11:11 | PCM.WC.PN ---
History of Present Illness Date of Service: 11/25/24 Chief Complaint: Left heel decubitus ulcer History of Wound: 84-year-old white male who was in the hospital for a left hip replacement in August and he developed a left heel from digging into the sheets turning and moving blister that opened. They have only been using [id number] antibiotic ointment on it. Patient history of anemia. Saw their doctor and she referred them to the wound center. Progress of Wound: Left heel measurements are about the same as last week. We are using Dakin's soaked Adilene in the wound base and it seems to be working better. We ordered an x-ray will take a look at his heel and we also gave him some Marcio samples he is taking boost but we do not feel like it is enough. Continues to eat and drink boost along with his regular meals. states he is doing better about the offloading Subjective Subjective Patient is agreeable to plan Objective Data Objective Data Skin looks good patient is still on his antibiotic and doing okay continues to try to offload is much as possible I reinforced that to him. Will try getting an x-ray of the heel make sure that it is okay and we will continue using this Adilene soaked Dakin's and Adaptic and foam Vital Signs: Vital Signs Temp Pulse Resp BP 97.6 F L 80 16 127/77 H 11/25/24 10:00 11/25/24 10:00 11/25/24 10:00 11/25/24 10:00 Weight: 140 lb Physical Exam Const oriented x3 General Appearance: cooperative Exam Limitations: no limitations HEENT normocephalic Eyes PERRL General Eye: normal appearance of both eyes Neck full ROM General: normal visual inspection Resp normal respiratory effort Effort and Inspection: able to speak in complete sentences Auscultation: clear to auscultation bilaterally Cardio regular rate and regular rhythm Palpation: normal PMI Rate: regular rate Rhythm: regular rhythm GI Palpation: soft and no hepatosplenomegaly Back/Spine Cervical Spine: cervical ROM normal Thoracic Spine / Upper Back: normal to inspection Lumbar Spine / Lower Back: normal to inspection Extremity General Extremity: normal exam except as noted Peripheral Pulses: Yes popliteal pulses present Skin no rashes or lesions noted Lesions: no lesions Rashes: no rashes Wound Narrative: Open wound left heel pressure Neuro oriented x3 Gait (Neuro): antalgic Psych Appearance: grossly normal Speech: normal speech Thought Content: normal thought content Judgement: judgement good Debridement Note Debridement Note Wound debrided: Left heel decubitus ulcer Laterality: Left Wound Grade/Stage: Stage II Type of Debridement: Excisional debridement Anesthesia Used: 5% Lidocaine Gel Depth: in the subcutaneous layer Percentage of wound debrided: 100 Instrument Used: 5mm curette and Forceps Tissue Removed: Fibrin and callus around the edge Severity: Fat Layer Exposed Amount of bleeding with debridement: Mild Bleeding Controlled with: Compression and gauze Patient tolerated procedure: Patient tolerated procedure well Post-Debridement Measurements and Additional Note: Post-Debridement Measurements/Treatment - Nurse 1 - General Ulcer Assessment Start: 11/18/24 10:12 Freq: Status: Active Protocol: CHRIS Activity Type Activity Date Activity User E-sign Co-sign Detail Recorded Client Recorded Date Recorded By Document 11/18/24 10:12 RB [id number] 11/18/24 10:14 RB Document 11/25/24 10:00 DL [id number] 11/25/24 10:05 DL 11/18/24 11/25/24 10:12 10:00 - Today's Visit Information Type of service Follow-up Visit Follow-up Visit (Physician/FILM MASKER (Physician/FILM MASKER ) ) Arrival Mode Wheelchair Ambulatory, Wheelchair Transfer Assistance None None Patient Identification Verified (Name & Yes Yes ) Patient Requires Transmission-Based No No Precautions Vital Signs Temperature (97.8 F-99.1 F) 97.2 F L 97.6 F L Temperature Source Temporal Temporal Pulse Rate (60-100) 84 80 Pulse Location Monitor Monitor Respiratory Rate (12-18) 18 16 Respiratory rate source Observation Observation Blood Pressure (90/60-120/80) 133/79 H 127/77 H Blood Pressure Mean (mm Hg) 97 93 Source Monitor Monitor Position Sitting Blood Pressure Location Left Arm History Since Last Visit- (Skip if this is Patient's initial visit) Have you changed medications since your No No last visit? Any new allergies or adverse reactions No No Had a fall/change in ADL's that may No No increase risk of falls Signs or symptoms of abuse and/or No No neglect since last visit Have you been in the hospital since your No No last visit? Has dressing in place as prescribed Yes Yes Has compression in place as prescribed N/A N/A Has offloadiing in place as prescribed Yes Yes Experienced any changes in pain level or No management Left Footwear Slipper Right Footwear Slipper Pain Scale: 0-10 Numeric Is Patient Pain Free? No Yes LLE -Description Aching -Intensity 3 -Duration (hours) Acute -Alleviating Factors/Interventions Medication -Effectiveness of Alleviating Factor/ Moderately Intervention effective WC - Nurse 1 - General Ulcer Measurement Start: 11/18/24 10:12 Freq: Status: Active Protocol: Activity Type Activity Date Activity User E-sign Co-sign Detail Recorded Client Recorded Date Recorded By Document 11/18/24 10:12 RB [id number] 11/18/24 10:14 RB Document 11/25/24 10:00 DL [id number] 11/25/24 10:05 DL 11/18/24 11/25/24 10:12 10:00 Wound Center Nurse 1 #1 LEFT HEEL -Combined with other wound No -Combined with (Name of Wound-Exactly 2.4 as it is documented) -Current Size (cm) - Length 2.4 2.1 -Current Size (cm) - Width 0.2 2.2 -Current Size (cm) - Depth 0.3 -Total Square Cm 0.48 4.62 -Photo Taken Yes Yes -Tunneling No -Undermining/Tunneling No -Circular Undermining No -Exudate Amt Medium Medium -Exudate Type Serosanguineous Serosanguineous -Wound Margin Thickened & Distinct, Rolled Under Outline Attached -Granulation Amt Medium (34-66%) Medium (34-66%) -Granulation Quality [place] Red -Slough/Fibrin Yes -Necrosis Amt Medium (34-66%) Medium (34-66%) -Necrotic Tissue Type Adherent Slough Adherent Slough -Structure Exposed N/A N/A -Texture (Tiffanie-wound Skin Appearance) Assessed,Callus Scarring -Moisture (Tiffanie-wound Skin Appearance) Assessed Maceration -Color (Tiffanie-wound Skin Appearance) Assessed No Abnormality -Temperature (Tiffanie-wound Skin No Abnormality No Abnormality Appearance) (Pt Warm) (Pt Warm) -Tenderness on Palpation (Tiffanie-wound No No Skin Appearance) -Ulcer Cleansing Wound Cleanser Soap and Water -Foul Odor after Cleansing No No -Anesthetic Used 5% Lidocaine 4% Lidocaine Gel Solution WC - Nurse 2 - General Ulcer CM Notes Start: 06/04/25 10:12 Freq: Status: Active Protocol: Activity Type Activity Date Activity User E-sign Co-sign Detail Recorded Client Recorded Date Recorded By Document 11/18/24 10:25 [facility] [id number] 11/18/24 10:32 [facility] Document 11/25/24 10:28 [facility] [id number] 11/25/24 10:37 [facility] 11/18/24 11/25/24 10:25 10:28 Wound Center Nurse 2 #1 LEFT HEEL -Time 10:25 10:28 -Correct Patient Yes Yes -Correct Side, Site, Position Yes Yes -Correct Procedure Yes Yes -Procedure Performed Yes Yes -Type of Procedure Debridement Debridement -Clinical Debridement Subcutaneous Muscle / Fascia -Tissue Removed Subcutaneous Muscle,Fascia -Post Debridement (cm) - Length 2.2 2.2 -Post Debridement (cm) - Width 2.4 2.5 -Post Debridement (cm) - Depth 0.3 0.3 -Total Square (Post) (cm) 5.28 5.50 -Area of Debridement (cm) - Length 2.2 2.2 -Area of Debridement (cm) - Width 2.4 2.5 -Total Square (Area) (cm) 5.28 5.50 -Tunneling No No -Undermining/Tunneling No No -Circular Undermining No No -Wound/Ulcer Outcome Not Healed Not Healed -Ulcer Cleansing Rinsed/ Rinsed/ Irrigated with Irrigated with Saline Saline -Foul Odor after Cleansing No No -Bioengineered Tissue No No -Bleeding Controlled with Pressure Pressure -Treatment Response Procedure Procedure Tolerated Well Tolerated Well -Debridement - Subq, 1st 20sq cm Yes -Debridement - Muscle / Fascia, 1st Yes 20sq cm Pain Scale: 0-10 Numeric Is Patient Pain Free? Yes Yes - Nurse 3 - General Ulcer D/C NN Start: 11/18/24 10:12 Freq: Status: Active Protocol: Activity Type Activity Date Activity User E-sign Co-sign Detail Recorded Client Recorded Date Recorded By Document 11/18/24 10:52 [id number] 11/18/24 10:53 DL Document 11/25/24 10:46 [facility] [id number] 11/25/24 10:46 [facility] 11/18/24 11/25/24 10:52 10:46 Wound Care Center Nurse 3 #1 LEFT HEEL -Ulcer Cleansing Rinsed/ Irrigated with Saline -Foul Odor after Cleansing No -Primary Dressing Applied Fibracol Plus NonAdherent 4x4,Hysept, Contact Layer, NonAdherent Promogran Contact Layer, Adilene Matter, Silicone Border Silicone Border Foam 4x4 Foam 4x4 -Other Dressing dakins moist adilene -Fibracol Plus 4x4 1 -Hysept 1 -Promogran Adilene Matter 1 -Silicone Border Foam 4x4 1 1 Treatment Response Procedure Tolerated Well Pain Scale: 0-10 Numeric Is Patient Pain Free? Yes Yes WC - Visit Discharge Discharge Condition Stable Stable Ambulatory Status Ambulatory, Wheelchair Wheelchair Transportation Private Auto Private Auto Accompanied by Facility Type Home Health Assessment/Plan Assessment/Plan (1) Decubitus ulcer of left heel, stage 2: CODE(S): L89.622 - Pressure ulcer of left heel, stage 2 PLAN: Wash left heel and foot with antibacterial soap and water like Dial soap. Apply Adilene to wound base moistened with Dakin's cover with Adaptic and then absorbent SAP [place] dressing every day Follow-up in 1 week Get the left foot x-ray done Continue to offload and to continue boost supplements (2) Pain of left heel: CODE(S): M79.672 - Pain in left foot PLAN: Continue to offload left foot. (3) Anemia: CODE(S): D64.9 - Anemia, unspecified QUALIFIERS: Anemia type: unspecified type Qualified Code(s): D64.9 - Anemia, unspecified (4) Malnutrition: CODE(S): E46 - Unspecified protein-calorie malnutrition QUALIFIERS: Malnutrition type: protein-calorie malnutrition Protein-calorie malnutrition severity: unspecified severity Qualified Code(s): E46 - Unspecified protein-calorie malnutrition PLAN: Continues to drink protein shakes daily
--- NOTE | 2024-11-25 14:02 | WC ---
PHOTO 11/25/24 LEFT HEEL
--- NOTE | 2024-11-30 14:19 | WC ---
received VM from [facility] Smiley concerning pt wound being more painful, increase in drainage. call to Colleen HARO, states pt was to have xray done last week and that pt needs to get the xray before 12/02 appt. dressings will stay the same at this time. MINERVA left with Marlyn @ [facility] with Ricky mcintyre
--- NOTE | 2024-11-30 16:16 | WC ---
[facility] nurse Reis called to report pt is going today to get ordered xrays completed.
[2024-12-02 10:35] VITALS: BP 125/78; PULSE 72; RESP 18; TEMP 36.2
--- NOTE | 2024-12-02 13:03 | PN.PCM_ITS ---
History of Present Illness Date of Service: 12/02/24 Chief Complaint: Left heel decubitus ulcer History of Wound: 84-year-old white male who was in the hospital for a left hip replacement in August and he developed a left heel from digging into the sheets turning and moving blister that opened. They have only been using [id number] antibiotic ointment on it. Patient history of anemia. Saw their doctor and she referred them to the wound center. Progress of Wound: Left heel wound to left lower extremity. Daily dressing changes with Dakin's and bordered foam. Subjective Subjective Mr. Milian is a 84-year-old male presenting to wound care center today for referral from nurse practitioner Colleen for chronic left heel ulceration for 2 months. Past medical history in chart. He has been doing daily dressing changes with Dakin solution and bordered foam. They have made some drainage. He does have some pain with touch. The original nature of the wound was from a pressure sore when at [facility] in the hospital after having a hip fracture. Since then he has been doing weekly wound care visits and treatment. He denies any new trauma to the area. Denies constitutional symptoms. No other pedal complaints at this time. Objective Data Objective Data Vital Signs: Vital Signs Temp Pulse Resp BP O2 Del Method 97.1 F L 72 18 125/78 H Room Air 12/02/24 10:35 12/02/24 10:35 12/02/24 10:35 12/02/24 10:35 12/02/24 10:35 Oxygen Delivery Method Room Air Weight: 63.503 kg Physical Exam Narrative Vascular: DP and PT pulses are palpable. CFT is brisk. No erythema or drainage is appreciated at time of visit. Symptoms great is warm to warm from proximal ankles to distal digit to left extremity. Neurological: Light touch intact. Patient does respond to painful stimuli. Dermatological: Full-thickness wound with necrotic center portion to the left heel measuring 2.2 x 2.3 x 1.4 cm. Negative probe to bone. No malodor is appreciated. No erythema. Excisional debridement down to including subcutaneous tissue fascia and muscle with a sharp rongeur to the left heel done without incident. Postdebridement measurement is 2.0 x 2.0 x 0.3 cm. Postdebridement measurement was 2.2 x 2.3 x 1.4 cm. Musculoskeletal: Mild pain to palpation full-thickness wound to left heel. No pain with calf pressure. Debridement Note Debridement Note Debridement Free Text: Excisional debridement down to including subcutaneous tissue fascia and muscle with a sharp rongeur to the left heel done without incident. Postdebridement measurement is 2.0 x 2.0 x 0.3 cm. Postdebridement measurement was 2.2 x 2.3 x 1.4 cm. Post-Debridement Measurements and Additional Note: Post-Debridement Measurements/Treatment - Nurse 1 - General Ulcer Assessment Start: 11/18/24 10:12 Freq: Status: Active Protocol: [email or web address] Activity Type Activity Date Activity User E-sign Co-sign Detail Recorded Client Recorded Date Recorded By Document 11/18/24 10:12 RB [id number] 11/18/24 10:14 RB Document 11/25/24 10:00 DL [id number] 11/25/24 10:05 DL Document 12/02/24 10:35 KW [id number] 12/02/24 10:47 KW 11/18/24 11/25/24 12/02/24 10:12 10:00 10:35 - Today's Visit Information Type of service Follow-up Visit Follow-up Visit Follow-up Visit (Physician/HOURLY MANAGER (Physician/HOURLY MANAGER (Physician/HOURLY MANAGER ) ) ) Arrival Mode Wheelchair Ambulatory, Wheelchair Wheelchair Transfer Assistance None None Accompanied by Patient Identification Verified (Name & Yes Yes Yes ) Patient Requires Transmission-Based No No Precautions Vital Signs Temperature (97.8 F-99.1 F) 97.2 F L 97.6 F L 97.1 F L Temperature Source Temporal Temporal Temporal Pulse Rate (60-100) 84 80 72 Pulse Location Monitor Monitor Monitor Respiratory Rate (12-18) 18 16 18 Respiratory rate source Observation Observation Observation Oxygen Delivery Method Room Air Blood Pressure (90/60-120/80) 133/79 H 127/77 H 125/78 H Blood Pressure Mean (mm Hg) 97 93 93 Source Monitor Monitor Monitor Position Sitting Semi-Fowlers Blood Pressure Location Left Arm Left Arm History Since Last Visit- (Skip if this is Patient's initial visit) Have you changed medications since your No No No last visit? Any new allergies or adverse reactions No No No Had a fall/change in ADL's that may No No No increase risk of falls Signs or symptoms of abuse and/or No No No neglect since last visit Have you been in the hospital since your No No No last visit? Has dressing in place as prescribed Yes Yes Yes Has compression in place as prescribed N/A N/A Yes Has offloadiing in place as prescribed Yes Yes N/A Experienced any changes in pain level or No No management Left Footwear Slipper Regular Shoe Right Footwear Slipper Regular Shoe Pain Scale: 0-10 Numeric Is Patient Pain Free? No Yes Yes LLE -Description Aching -Intensity 3 -Duration (hours) Acute -Alleviating Factors/Interventions Medication -Effectiveness of Alleviating Factor/ Moderately Intervention effective WC - Nurse 1 - General Ulcer Measurement Start: 11/18/24 10:12 Freq: Status: Active Protocol: Activity Type Activity Date Activity User E-sign Co-sign Detail Recorded Client Recorded Date Recorded By Document 11/18/24 10:12 RB [id number] 11/18/24 10:14 RB Document 11/25/24 10:00 DL [id number] 11/25/24 10:05 DL Document 12/02/24 10:35 KW [id number] 12/02/24 10:47 KW 11/18/24 11/25/24 12/02/24 10:12 10:00 10:35 Wound Center Nurse 1 #1 LEFT HEEL -Combined with other wound No -Combined with (Name of Wound-Exactly 2.4 as it is documented) -Current Size (cm) - Length 2.4 2.1 2 -Current Size (cm) - Width 0.2 2.2 2.2 -Current Size (cm) - Depth 0.3 0.8 -Total Square Cm 0.48 4.62 4.4 -Date of Last Picture (Recall this 12/02/24 field) -Photo Taken Yes Yes -Tunneling No -Undermining/Tunneling No -Circular Undermining No -Exudate Amt Medium Medium Large -Exudate Type Serosanguineous Serosanguineous Serosanguineous -Wound Margin Thickened & Distinct, Distinct, Rolled Under Outline Outline Attached Attached -Granulation Amt Medium (34-66%) Medium (34-66%) Small (1-33%) -Granulation Quality [place] -Slough/Fibrin Yes -Necrosis Amt Medium (34-66%) Medium (34-66%) Large (67-100%) -Necrotic Tissue Type Adherent Slough Adherent Slough Adherent Slough -Structure Exposed N/A N/A -Texture (Tiffanie-wound Skin Appearance) Assessed,Callus Scarring Assessed -Moisture (Tiffanie-wound Skin Appearance) Assessed Maceration Assessed -Color (Tiffanie-wound Skin Appearance) Assessed No Abnormality Assessed -Temperature (Tiffanie-wound Skin No Abnormality No Abnormality No Abnormality Appearance) (Pt Warm) (Pt Warm) (Pt Warm) -Tenderness on Palpation (Tiffanie-wound No No Yes Skin Appearance) -Ulcer Cleansing Wound Cleanser Soap and Water Soap and Water -Foul Odor after Cleansing No No Yes -Anesthetic Used 5% Lidocaine 4% Lidocaine 5% Lidocaine Gel Solution Gel WC - Nurse 2 - General Ulcer CM Notes Start: 11/18/24 10:12 Freq: Status: Active Protocol: Activity Type Activity Date Activity User E-sign Co-sign Detail Recorded Client Recorded Date Recorded By Document 11/18/24 10:25 [facility] [id number] 11/18/24 10:32 [facility] Document 11/25/24 10:28 [facility] [id number] 11/25/24 10:37 [facility] Document 12/02/24 10:59 [id number] 12/02/24 11:01 11/18/24 11/25/24 12/02/24 10:25 10:28 10:59 Wound Center Nurse 2 #1 LEFT HEEL -Time 10:25 10:28 11:00 -Correct Patient Yes Yes Yes -Correct Side, Site, Position Yes Yes Yes -Correct Procedure Yes Yes Yes -Procedure Performed Yes Yes Yes -Type of Procedure Debridement Debridement Debridement -Clinical Debridement Subcutaneous Muscle / Fascia Muscle / Fascia -Tissue Removed Subcutaneous Muscle,Fascia Muscle -Post Debridement (cm) - Length 2.2 2.2 2.2 -Post Debridement (cm) - Width 2.4 2.5 2.3 -Post Debridement (cm) - Depth 0.3 0.3 1.4 -Total Square (Post) (cm) 5.28 5.50 5.06 -Area of Debridement (cm) - Length 2.2 2.2 2.2 -Area of Debridement (cm) - Width 2.4 2.5 2.3 -Total Square (Area) (cm) 5.28 5.50 5.06 -Tunneling No No No -Undermining/Tunneling No No No -Circular Undermining No No No -Wound/Ulcer Outcome Not Healed Not Healed Not Healed -Ulcer Cleansing Rinsed/ Rinsed/ Rinsed/ Irrigated with Irrigated with Irrigated with Saline Saline Saline -Foul Odor after Cleansing No No No -Bioengineered Tissue No No No -Bleeding Controlled with Pressure Pressure Pressure,Silver Nitrate ($) -Treatment Response Procedure Procedure Procedure Tolerated Well Tolerated Well Tolerated Well -Offloading No -Debridement - Subq, 1st 20sq cm Yes -Debridement - Muscle / Fascia, 1st Yes Yes 20sq cm Pain Scale: 0-10 Numeric Is Patient Pain Free? Yes Yes Yes - Nurse 3 - General Ulcer D/C NN Start: 11/18/24 10:12 Freq: Status: Active Protocol: Activity Type Activity Date Activity User E-sign Co-sign Detail Recorded Client Recorded Date Recorded By Document 11/18/24 10:52 DL [id number] 11/18/24 10:53 DL Document 11/25/24 10:46 [facility] [id number] 11/25/24 10:46 [facility] 11/18/24 11/25/24 10:52 10:46 Wound Care Center Nurse 3 #1 LEFT HEEL -Ulcer Cleansing Rinsed/ Irrigated with Saline -Foul Odor after Cleansing No -Primary Dressing Applied Fibracol Plus NonAdherent 4x4,Hysept, Contact Layer, NonAdherent Promogran Contact Layer, Adilene Matter, Silicone Border Silicone Border Foam 4x4 Foam 4x4 -Other Dressing dakins moist adilene -Fibracol Plus 4x4 1 -Hysept 1 -Promogran Adilene Matter 1 -Silicone Border Foam 4x4 1 1 Treatment Response Procedure Tolerated Well Pain Scale: 0-10 Numeric Is Patient Pain Free? Yes Yes - Visit Discharge Discharge Condition Stable Stable Ambulatory Status Ambulatory, Wheelchair Wheelchair Transportation Private Auto Private Auto Accompanied by Facility Type Home Health Assessment/Plan Assessment/Plan (1) Non-pressure chronic ulcer of left heel and midfoot with necrosis of muscle: CODE(S): L97.423 - Non-pressure chronic ulcer of left heel and midfoot with necrosis of muscle PLAN: Patient was examined and evaluated. All findings were discussed with the patient. All questions were answered to the patient's satisfaction. Excisional debridement down to including subcutaneous tissue fascia and muscle with a sharp rongeur to the left heel done without incident. Postdebridement measurement is 2.0 x 2.0 x 0.3 cm. Postdebridement measurement was 2.2 x 2.3 x 1.4 cm. Left heel was wiped clean and patted dry. Culture was taken. The patient will be placed on preliminary antibiotics doxycycline number grams twice daily, ciprofloxacin and 50 mg twice daily for 2 weeks. Will adjust cultures when microbiology culture and sensitivity returns. The ulceration was dressed with Betadine soaked gauze dry sterile dressing and light compression wrap was donned. Patient will perform daily dressing changes as discussed. No plan for surgical intervention at this time. Once the tissue has improved move forward with skin graft substitute. Follow-up at the wound care center with Dr. Richards in 1 week.
--- NOTE | 2024-12-03 10:28 | WC ---
PHOTO 12/02/24 LEFT HEEL
[2024-12-09 10:03] VITALS: BP 116/67; PULSE 80; RESP 16; TEMP 36.3
--- NOTE | 2024-12-09 10:45 | PCM.WC.PN ---
History of Present Illness Date of Service: 12/09/24 Chief Complaint: Left heel decubitus ulcer History of Wound: 84-year-old white male who was in the hospital for a left hip replacement in August and he developed a left heel from digging into the sheets turning and moving blister that opened. They have only been using [id number] antibiotic ointment on it. Patient history of anemia. Saw their doctor and she referred them to the wound center. Progress of Wound: Stable left heel wound improving. Subjective Subjective Patient is a 84-year-old male presenting to clinic today follow-up evaluation of left heel ulceration. Patient is been compliant with dressing changes taking antibiotics as prescribed. Overall he is doing well and notices improvement to the wound. He denies trauma. He is elevating and offloading as discussed. Denies trauma. Denies constitutional symptoms. No other pedal complaints at this time. Objective Data Objective Data Vital Signs: Vital Signs Temp Pulse Resp BP O2 Del Method 97.4 F L 80 16 116/67 Room Air 12/09/24 10:03 12/09/24 10:03 12/09/24 10:03 12/09/24 10:03 12/09/24 10:03 Oxygen Delivery Method Room Air Weight: 63.503 kg Lab / Micro Data Micro: Microbiology 12/02/24 10:57 Ulcer, Decubitus - Left Foot Gram Stain - Final 12/02/24 10:57 Ulcer, Decubitus - Left Foot Wound Culture - Preliminary Strep anginosus Enterococcus faecalis 12/02/24 10:57 Ulcer, Decubitus - Left Foot Anaerobic Culture - Preliminary Gram negative yue Gram negative yue#2 Gram negative cocco bacillus Physical Exam Narrative Vascular: DP and PT pulses are palpable. CFT is brisk. No erythema or drainage is appreciated at time of visit. Skin temperature is within normal limits. Neurological: Light touch intact. Patient does respond to painful stimuli. Dermatological: Full-thickness wound to the left heel with granular base. Negative probe to bone. Wound measures 1.9 x 2.0 x 0.6 cm. Excisional debridement down to including subcutaneous tissue with a number 5 mm dermal curette to the left heel done without incident. Predebridement measurement was 1.8 x 1.8 x 0.3 cm. Postdebridement measurement is 1.9 x 2.0 x 0.6 cm. Musculoskeletal: No pain to palpation full-thickness wound to left heel. No pain with calf pressure. Debridement Note Debridement Note Debridement Free Text: Excisional debridement down to including subcutaneous tissue with a number 5 mm dermal curette to the left heel done without incident. Predebridement measurement was 1.8 x 1.8 x 0.3 cm. Postdebridement measurement is 1.9 x 2.0 x 0.6 cm. Post-Debridement Measurements and Additional Note: Post-Debridement Measurements/Treatment - Nurse 1 - General Ulcer Assessment Start: 11/18/24 10:12 Freq: Status: Active Protocol: [email or web address] Activity Type Activity Date Activity User E-sign Co-sign Detail Recorded Client Recorded Date Recorded By Document 11/18/24 10:12 RB [id number] 11/18/24 10:14 RB Document 11/25/24 10:00 DL [id number] 11/25/24 10:05 DL Document 12/02/24 10:35 KW [id number] 12/02/24 10:47 KW Document 12/09/24 10:03 GM [id number] 12/09/24 10:10 GM 11/18/24 11/25/24 12/02/24 10:12 10:00 10:35 - Today's Visit Information Type of service Follow-up Visit Follow-up Visit Follow-up Visit (Physician/AIRCRAFT LIFE SUPPORT FITTER (Physician/AIRCRAFT LIFE SUPPORT FITTER (Physician/AIRCRAFT LIFE SUPPORT FITTER ) ) ) Arrival Mode Wheelchair Ambulatory, Wheelchair Wheelchair Transfer Assistance None None Accompanied by Patient Identification Verified (Name & Yes Yes Yes ) Patient Requires Transmission-Based No No Precautions Vital Signs Temperature (97.8 F-99.1 F) 97.2 F L 97.6 F L 97.1 F L Temperature Source Temporal Temporal Temporal Pulse Rate (60-100) 84 80 72 Pulse Location Monitor Monitor Monitor Respiratory Rate (12-18) 18 16 18 Respiratory rate source Observation Observation Observation Oxygen Delivery Method Room Air Blood Pressure (90/60-120/80) 133/79 H 127/77 H 125/78 H Blood Pressure Mean (mm Hg) 97 93 93 Source Monitor Monitor Monitor Position Sitting Semi-Fowlers Blood Pressure Location Left Arm Left Arm History Since Last Visit- (Skip if this is Patient's initial visit) Have you changed medications since your No No No last visit? Any new allergies or adverse reactions No No No Had a fall/change in ADL's that may No No No increase risk of falls Signs or symptoms of abuse and/or No No No neglect since last visit Have you been in the hospital since your No No No last visit? Has dressing in place as prescribed Yes Yes Yes Has compression in place as prescribed N/A N/A Yes Has offloadiing in place as prescribed Yes Yes N/A Experienced any changes in pain level or No No management Left Footwear Slipper Regular Shoe Right Footwear Slipper Regular Shoe Pain Scale: 0-10 Numeric Is Patient Pain Free? No Yes Yes LLE -Description Aching -Intensity 3 -Duration (hours) Acute -Alleviating Factors/Interventions Medication -Effectiveness of Alleviating Factor/ Moderately Intervention effective 12/09/24 10:03 WC - Today's Visit Information Type of service Follow-up Visit (Physician/AIRCRAFT [employer] SUPPORT FITTER ) Arrival Mode Wheelchair Transfer Assistance Accompanied by Patient Identification Verified (Name & Yes ) Patient Requires Transmission-Based Precautions Vital Signs Temperature (97.8 F-99.1 F) 97.4 F L Temperature Source Temporal Pulse Rate (60-100) 80 Pulse Location Monitor Respiratory Rate (12-18) 16 Respiratory rate source Ausculation Oxygen Delivery Method Room Air Blood Pressure (90/60-120/80) 116/67 Blood Pressure Mean (mm Hg) 83 Source Monitor Position Blood Pressure Location History Since Last Visit- (Skip if this is Patient's initial visit) Have you changed medications since your No last visit? Any new allergies or adverse reactions No Had a fall/change in ADL's that may No increase risk of falls Signs or symptoms of abuse and/or No neglect since last visit Have you been in the hospital since your No last visit? Has dressing in place as prescribed Yes Has compression in place as prescribed Yes Has offloadiing in place as prescribed N/A Experienced any changes in pain level or No management Left Footwear Regular Shoe Right Footwear Regular Shoe Pain Scale: 0-10 Numeric Is Patient Pain Free? Yes LLE -Description -Intensity -Duration (hours) -Alleviating Factors/Interventions -Effectiveness of Alleviating Factor/ Intervention YOVANY - Nurse 1 - General Ulcer Measurement Start: 11/18/24 10:12 Freq: Status: Active Protocol: Activity Type Activity Date Activity User E-sign Co-sign Detail Recorded Client Recorded Date Recorded By Document 11/18/24 10:12 RB [id number] 11/18/24 10:14 RB Document 11/25/24 10:00 DL [id number] 11/25/24 10:05 DL Document 12/02/24 10:35 KW [id number] 12/02/24 10:47 KW Document 12/09/24 10:03 GM [id number] 12/09/24 10:10 GM 11/18/24 11/25/24 12/02/24 10:12 10:00 10:35 Wound Center Nurse 1 #1 LEFT HEEL -Combined with other wound No -Combined with (Name of Wound-Exactly 2.4 as it is documented) -Current Size (cm) - Length 2.4 2.1 2 -Current Size (cm) - Width 0.2 2.2 2.2 -Current Size (cm) - Depth 0.3 0.8 -Total Square Cm 0.48 4.62 4.4 -Date of Last Picture (Recall this 12/02/24 field) -Photo Taken Yes Yes -Tunneling No -Undermining/Tunneling No -Circular Undermining No -Exudate Amt Medium Medium Large -Exudate Type Serosanguineous Serosanguineous Serosanguineous -Wound Margin Thickened & Distinct, Distinct, Rolled Under Outline Outline Attached Attached -Granulation Amt Medium (34-66%) Medium (34-66%) Small (1-33%) -Granulation Quality [place] -Slough/Fibrin Yes -Necrosis Amt Medium (34-66%) Medium (34-66%) Large (67-100%) -Necrotic Tissue Type Adherent Slough Adherent Slough Adherent Slough -Structure Exposed N/A N/A -Texture (Tiffanie-wound Skin Appearance) Assessed,Callus Scarring Assessed -Moisture (Tiffanie-wound Skin Appearance) Assessed Maceration Assessed -Color (Tiffanie-wound Skin Appearance) Assessed No Abnormality Assessed -Temperature (Tiffanie-wound Skin No Abnormality No Abnormality No Abnormality Appearance) (Pt Warm) (Pt Warm) (Pt Warm) -Tenderness on Palpation (Tiffanie-wound No No Yes Skin Appearance) -Ulcer Cleansing Wound Cleanser Soap and Water Soap and Water -Foul Odor after Cleansing No No Yes -Anesthetic Used 5% Lidocaine 4% Lidocaine 5% Lidocaine Gel Solution Gel 12/09/24 10:03 Wound Center Nurse 1 #1 LEFT HEEL -Combined with other wound No -Combined with (Name of Wound-Exactly as it is documented) -Current Size (cm) - Length 1.8 -Current Size (cm) - Width 2.0 -Current Size (cm) - Depth 0.5 -Total Square Cm 3.60 -Date of Last Picture (Recall this 12/09/24 field) -Photo Taken Yes -Tunneling No -Undermining/Tunneling No -Circular Undermining No -Exudate Amt Small -Exudate Type Yellow/Green -Wound Margin Distinct, Outline Attached -Granulation Amt Medium (34-66%) -Granulation Quality [place] -Slough/Fibrin Yes -Necrosis Amt -Necrotic Tissue Type Adherent Slough -Structure Exposed -Texture (Tiffanie-wound Skin Appearance) Assessed -Moisture (Tiffanie-wound Skin Appearance) Assessed -Color (Tiffanie-wound Skin Appearance) Assessed -Temperature (Tiffanie-wound Skin No Abnormality Appearance) (Pt Warm) -Tenderness on Palpation (Tiffanie-wound No Skin Appearance) -Ulcer Cleansing Rinsed/ Irrigated with Saline -Foul Odor after Cleansing No -Anesthetic Used 5% Lidocaine Gel WC - Nurse 2 - General Ulcer CM Notes Start: 11/18/24 10:12 Freq: Status: Active Protocol: Activity Type Activity Date Activity User E-sign Co-sign Detail Recorded Client Recorded Date Recorded By Document 11/18/24 10:25 [facility] [id number] 11/18/24 10:32 [facility] Document 11/25/24 10:28 [facility] [id number] 11/25/24 10:37 [facility] Document 12/02/24 10:59 JF [id number] 12/02/24 11:01 Document 12/09/24 10:16 DS [id number] 12/09/24 10:17 DS 11/18/24 11/25/24 12/02/24 10:25 10:28 10:59 Wound Center Nurse 2 #1 LEFT HEEL -Time 10: 10:28 11:00 -Correct Patient Yes Yes Yes -Correct Side, Site, Position Yes Yes Yes -Correct Procedure Yes Yes Yes -Procedure Performed Yes Yes Yes -Type of Procedure Debridement Debridement Debridement -Clinical Debridement Subcutaneous Muscle / Fascia Muscle / Fascia -Tissue Removed Subcutaneous Muscle,Fascia Muscle -Post Debridement (cm) - Length 2.2 2.2 2.2 -Post Debridement (cm) - Width 2.4 2.5 2.3 -Post Debridement (cm) - Depth 0.3 0.3 1.4 -Total Square (Post) (cm) 5.28 5.50 5.06 -Area of Debridement (cm) - Length 2.2 2.2 2.2 -Area of Debridement (cm) - Width 2.4 2.5 2.3 -Total Square (Area) (cm) 5.28 5.50 5.06 -Tunneling No No No -Undermining/Tunneling No No No -Circular Undermining No No No -Wound/Ulcer Outcome Not Healed Not Healed Not Healed -Ulcer Cleansing Rinsed/ Rinsed/ Rinsed/ Irrigated with Irrigated with Irrigated with Saline Saline Saline -Foul Odor after Cleansing No No No -Bioengineered Tissue No No No -Bleeding Controlled with Pressure Pressure Pressure,Silver Nitrate ($) -Treatment Response Procedure Procedure Procedure Tolerated Well Tolerated Well Tolerated Well -Offloading No -Debridement - Subq, 1st 20sq cm Yes -Debridement - Muscle / Fascia, 1st Yes Yes 20sq cm Pain Scale: 0-10 Numeric Is Patient Pain Free? Yes Yes Yes 12/09/24 10:16 Wound Center Nurse 2 #1 LEFT HEEL -Time 10:16 -Correct Patient Yes -Correct Side, Site, Position Yes -Correct Procedure Yes -Procedure Performed Yes -Type of Procedure Debridement -Clinical Debridement Muscle / Fascia -Tissue Removed Fascia -Post Debridement (cm) - Length 1.9 -Post Debridement (cm) - Width 2.0 -Post Debridement (cm) - Depth 0.6 -Total Square (Post) (cm) 3.80 -Area of Debridement (cm) - Length 1.9 -Area of Debridement (cm) - Width 2.0 -Total Square (Area) (cm) 3.80 -Tunneling No -Undermining/Tunneling No -Circular Undermining No -Wound/Ulcer Outcome Not Healed -Ulcer Cleansing Rinsed/ Irrigated with Saline -Foul Odor after Cleansing No -Bioengineered Tissue No -Bleeding Controlled with Pressure -Treatment Response Procedure Tolerated Well -Offloading -Debridement - Subq, 1st 20sq cm -Debridement - Muscle / Fascia, 1st Yes 20sq cm Pain Scale: 0-10 Numeric Is Patient Pain Free? Yes WC - Nurse 3 - General Ulcer D/C NN Start: 11/18/24 10:12 Freq: Status: Active Protocol: Activity Type Activity Date Activity User E-sign Co-sign Detail Recorded Client Recorded Date Recorded By Document 11/18/24 10:52 DL [id number] 11/18/24 10:53 DL Document 11/25/24 10:46 BM [id number] 11/25/24 10:46 BM Document 12/02/24 11:00 DE [id number] 12/03/24 09:05 MT Document 12/09/24 10:27 KW [id number] 12/09/24 10:27 11/18/24 11/25/24 12/02/24 10:52 10:46 11:00 Wound Care Center Nurse 3 #1 LEFT HEEL -Ulcer Cleansing Rinsed/ Wound Cleanser Irrigated with Saline -Foul Odor after Cleansing No No -Negative Pressure Wound Therapy N/A -Primary Dressing Applied Fibracol Plus NonAdherent 4x4,Hysept, Contact Layer, NonAdherent Promogran Contact Layer, [place]ene Matter, Silicone Border Silicone Border Foam 4x4 Foam 4x4 -Other Dressing dakins moist betadine adilene -Primary Dressing Covered/Secured with Dry Gauze & Roll Gauze, Secured with Tape -Fibracol Plus 4x4 1 -Hysept 1 -Promogran Adilene Matter 1 -Silicone Border Foam 4x4 1 1 Treatment Response Procedure Tolerated Well Pain Scale: 0-10 Numeric Is Patient Pain Free? Yes Yes Yes WC - Visit Discharge Discharge Condition Stable Stable Ambulatory Status Ambulatory, Wheelchair Wheelchair Transportation Private Auto Private Auto Accompanied by Medication Reconcilliation completed & provided to patient/care provider Clinical Summary of Care Provided Facility Type Home Health 12/09/24 10:27 Wound Care Center Nurse 3 #1 LEFT HEEL -Ulcer Cleansing -Foul Odor after Cleansing -Negative Pressure Wound Therapy -Primary Dressing Applied -Other Dressing BETADINE -Primary Dressing Covered/Secured with Dry Gauze & Roll Gauze, Secured with Tape -Fibracol Plus 4x4 -Hysept -Promogran Adil[place] Matter -Silicone Border Foam 4x4 Treatment Response Pain Scale: 0-10 Numeric Is Patient Pain Free? Yes WC - Visit Discharge Discharge Condition Stable Ambulatory Status Wheelchair Transportation Private Auto Accompanied by Medication Reconcilliation completed & No provided to patient/care provider Clinical Summary of Care Provided Yes Facility Type Assessment/Plan Assessment/Plan (1) Non-pressure chronic ulcer of left heel and midfoot with necrosis of muscle: CODE(S): L97.423 - Non-pressure chronic ulcer of left heel and midfoot with necrosis of muscle PLAN: Patient was examined and evaluated. All findings were discussed with the patient. All questions were answered to the patient's satisfaction. Excisional debridement down to including subcutaneous tissue with a number 5 mm dermal curette to the left heel done without incident. Predebridement measurement was 1.8 x 1.8 x 0.3 cm. Postdebridement measurement is 1.9 x 2.0 x 0.6 cm. Left heel is low clean and patted dry. Patient will continue dressing changes with Betadine soaked gauze dry sterile dressing and light compression wrap. Will be moved forward with authorization of the patient insurance for amulet skin graft substitute to aid in healing. Patient will continue antibiotics as prescribed. He will continue to offload the bilateral heels as discussed. Follow-up at the wound care center with Dr. Richards in 1 week.
--- NOTE | 2024-12-10 10:07 | WC ---
PHOTO 12/09/24 LEFT HEEL
== END 2024-12-14 23:59 | disposition home or self-care (01) ==
LOC: WC 10:00
PROVIDERS: PCP Internal Medicine; Referring Provider Physician Assistant; Visit Provider Podiatrist Foot & Ankle Surgery
DX: I87.312 Chronic venous hypertension (idiopathic) with ulcer of left lower extremity (principal); L97.423 Non-pressure chronic ulcer of left heel and midfoot with necrosis of muscle; D64.9 Anemia, unspecified; Z79.899 Other long term (current) drug therapy; Z96.642 Presence of left artificial hip joint
CPT/HCPCS: 11042; 11043; 87070; 87075; 87077; 87186; 87205

== ENCOUNTER 2025-01-13 10:00 | Outpatient (RCR) | payer MEDICARE, SELFPAY ==
[2024-12-16 10:41] VITALS: BP 129/79; PULSE 74; RESP 18; TEMP 36.1
--- NOTE | 2024-12-16 12:39 | PCM.WC.PN ---
History of Present Illness Date of Service: 12/16/24 Chief Complaint: Left heel decubitus ulcer History of Wound: 84-year-old white male who was in the hospital for a left hip replacement in August and he developed a left heel from digging into the sheets turning and moving blister that opened. They have only been using [id number] antibiotic ointment on it. Patient history of anemia. Saw their doctor and she referred them to the wound center. Progress of Wound: Stable left heel ulceration. No sign of infection per Subjective Subjective Patient is a 84-year-old male presenting to clinic today for follow-up evaluation of left heel full-thickness wound. He has been compliant with dressing changes and noticed improvement to the wound. He has taken the antibiotic as prescribed. He denies any pain to the left lower extremity. He is offloading as discussed. Denies trauma. Denies constitutional symptoms. No other pedal complaints at this time. Objective Data Objective Data Vital Signs: Vital Signs Temp Pulse Resp BP O2 Del Method 96.9 F L 74 18 129/79 H Room Air 12/16/24 10:41 12/16/24 10:41 12/16/24 10:41 12/16/24 10:41 12/16/24 10:41 Oxygen Delivery Method Room Air Lab / Micro Data Micro: Microbiology 12/02/24 10:57 Ulcer, Decubitus - Left Foot Gram Stain - Final 12/02/24 10:57 Ulcer, Decubitus - Left Foot Wound Culture - Preliminary Strep anginosus Enterococcus faecalis 12/02/24 10:57 Ulcer, Decubitus - Left Foot Anaerobic Culture - Preliminary Gram negative yue Gram negative yue#2 Gram negative cocco bacillus Physical Exam Narrative Vascular: DP and PT pulses are palpable. CFT is brisk. No erythema or drainage is appreciated at time of visit. Skin temperature is within normal limits. Neurological: Light touch intact. Patient does respond to painful stimuli. Dermatological: Full-thickness wound to the left heel with granular base. Negative probe to bone. Wound measures 1.7 x 1.9 x 0.8 cm. Excisional debridement down to including subcutaneous tissue with a number 5 mm dermal curette to the left heel done without incident. Predebridement measurement was 1.6 x 1.8 x 0.5 cm.. Postdebridement measurement is 1.7 x 1.9 x 0.8 cm. EpiFix 2.0 x 2.0 cm was applied to the left heel full-thickness ulceration with 100% use. First application. The graft site was free and clear of any infection. The wound/skin graft substitute was dressed with nonadherent bandage secured in place with Steri-Strips followed by bolster dressing as well as a double layer Tubigrip. Musculoskeletal: No pain to palpation full-thickness wound to left heel. No pain with calf pressure. Debridement Note Debridement Note Debridement Free Text: Excisional debridement down to including subcutaneous tissue with a number 5 mm dermal curette to the left heel done without incident. Predebridement measurement was 1.6 x 1.8 x 0.5 cm.. Postdebridement measurement is 1.7 x 1.9 x 0.8 cm. EpiFix 2.0 x 2.0 cm was applied to the left heel full-thickness ulceration with 100% use. First application. The graft site was free and clear of any infection. The wound/skin graft substitute was dressed with nonadherent bandage secured in place with Steri-Strips followed by bolster dressing as well as a double layer Tubigrip. Post-Debridement Measurements and Additional Note: Post-Debridement Measurements/Treatment - Nurse 1 - General Ulcer Assessment Start: 12/16/24 10:41 Freq: Status: Active Protocol: CHRIS Activity Type Activity Date Activity User E-sign Co-sign Detail Recorded Client Recorded Date Recorded By Document 12/16/24 10:41 LAUREANO [id number] 12/16/24 10:46 LAUREANO 12/16/24 10:41 - Today's Visit Information Type of service Follow-up Visit (Physician/COMMERCIAL LOAN REVIEWER ) Arrival Mode Wheelchair Accompanied by Patient Identification Verified (Name & Yes ) Vital Signs Temperature (97.8 F-99.1 F) 96.9 F L Temperature Source Temporal Pulse Rate (60-100) 74 Pulse Location Monitor Respiratory Rate (12-18) 18 Respiratory rate source Observation Oxygen Delivery Method Room Air Blood Pressure (90/60-120/80) 129/79 H Blood Pressure Mean (mm Hg) 95 Source Monitor Position Semi-Fowlers Blood Pressure Location Right Arm History Since Last Visit- (Skip if this is Patient's initial visit) Have you changed medications since your No last visit? Any new allergies or adverse reactions No Had a fall/change in ADL's that may No increase risk of falls Signs or symptoms of abuse and/or No neglect since last visit Have you been in the hospital since your No last visit? Has dressing in place as prescribed Yes Has compression in place as prescribed Yes Has offloadiing in place as prescribed N/A Experienced any changes in pain level or No management Left Footwear Regular Shoe Right Footwear Regular Shoe Pain Scale: 0-10 Numeric Is Patient Pain Free? Yes - Nurse 1 - General Ulcer Measurement Start: 12/16/24 10:41 Freq: Status: Active Protocol: Activity Type Activity Date Activity User E-sign Co-sign Detail Recorded Client Recorded Date Recorded By Document 12/16/24 10:41 LAUREANO [id number] 12/16/24 10:46 LAUREANO 12/16/24 10:41 Wound Center Nurse 1 #1 LEFT HEEL -Current Size (cm) - Length 1.5 -Current Size (cm) - Width 1.3 -Current Size (cm) - Depth 0.9 -Total Square Cm 1.95 -Date of Last Picture (Recall this 12/16/24 field) -Exudate Amt Medium -Exudate Type Serosanguineous -Wound Margin Distinct, Outline Attached -Granulation Amt Medium (34-66%) -Granulation Quality [place] -Necrosis Amt Medium (34-66%) -Necrotic Tissue Type Adherent Slough -Texture (Tiffanie-wound Skin Appearance) Assessed,Callus -Moisture (Tiffanie-wound Skin Appearance) Assessed -Color (Tiffanie-wound Skin Appearance) Assessed -Temperature (Tiffanie-wound Skin No Abnormality Appearance) (Pt Warm) -Tenderness on Palpation (Tiffanie-wound No Skin Appearance) -Ulcer Cleansing Soap and Water -Foul Odor after Cleansing No -Anesthetic Used 5% Lidocaine Gel - Nurse 2 - General Ulcer CM Notes Start: 12/16/24 10:41 Freq: Status: Active Protocol: Activity Type Activity Date Activity User E-sign Co-sign Detail Recorded Client Recorded Date Recorded By Document 12/16/24 10:52 MARIA DE JESUS [id number] 12/16/24 10:55 MARIA DE JESUS 12/16/24 10:52 Wound Center Nurse 2 -Time 10:52 -Correct Patient Yes -Correct Side, Site, Position Yes -Correct Procedure Yes -Procedure Performed Yes -Type of Procedure Debridement -Clinical Debridement Subcutaneous -Tissue Removed Subcutaneous -Post Debridement (cm) - Length 1.7 -Post Debridement (cm) - Width 1.9 -Post Debridement (cm) - Depth 0.8 -Total Square (Post) (cm) 3.23 -Area of Debridement (cm) - Length 1.7 -Area of Debridement (cm) - Width 1.9 -Total Square (Area) (cm) 3.23 -Tunneling No -Undermining/Tunneling No -Circular Undermining No -Wound/Ulcer Outcome Not Healed -Ulcer Cleansing Rinsed/ Irrigated with Saline -Foul Odor after Cleansing No -Bioengineered Tissue Yes -Type of Bioengineered Tissue Epifix -Expiration Date 06/17/29 -Product Lot Number [id number] -Percent Used 100 -Lot number of Saline Used [id number] -Bleeding Controlled with Pressure -Treatment Response Procedure Tolerated Well -Offloading No -Debridement - Subq, 1st 20sq cm No -Apply Skin Sub - 1st 25 sq cm - Feet 1 -Epifix Application 1-4 (per sq cm) 4 Pain Scale: 0-10 Numeric Is Patient Pain Free? Yes WC - Nurse 3 - General Ulcer D/C NN Start: 12/16/24 10:41 Freq: Status: Active Protocol: Activity Type Activity Date Activity User E-sign Co-sign Detail Recorded Client Recorded Date Recorded By Document 12/16/24 11:01 [id number] 12/16/24 11:03 ML 12/16/24 11:01 Wound Care Center Nurse 3 #1 LEFT HEEL -Other Dressing EPIFIX,WOUND VEIL,STERI STRIP,GAUZE -Primary Dressing Covered/Secured with Dry Gauze & Roll Gauze, Secured with Tape LLE -Tubular Bandage Single Layer -Size of Tubigrip Used Size D -Size D ($) 1 Pain Scale: 0-10 Numeric Is Patient Pain Free? Yes Assessment/Plan Assessment/Plan (1) Chronic venous hypertension (idiopathic) with ulcer of right lower extremity: CODE(S): I87.311 - Chronic venous hypertension (idiopathic) with ulcer of right lower extremity; L97.919 - Non-pressure chronic ulcer of unspecified part of right lower leg with unspecified severity PLAN: Patient was examined and evaluated. All findings were discussed with the patient. All questions were answered to the patient's satisfaction. Excisional debridement down to including subcutaneous tissue with a number 5 mm dermal curette to the left heel done without incident. Predebridement measurement was 1.6 x 1.8 x 0.5 cm.. Postdebridement measurement is 1.7 x 1.9 x 0.8 cm. EpiFix 2.0 x 2.0 cm was applied to the left heel full-thickness ulceration with 100% use. First application. The graft site was free and clear of any infection. The wound/skin graft substitute was dressed with nonadherent bandage secured in place with Steri-Strips followed by bolster dressing as well as a double layer Tubigrip. Patient will continue to offload the left lower extremity as discussed. Patient will follow-up with Colleen the nurse practitioner in 1 week and then with myself in 2 weeks. (2) Non-pressure chronic ulcer of left heel and midfoot with necrosis of muscle: CODE(S): L97.423 - Non-pressure chronic ulcer of left heel and midfoot with necrosis of muscle PLAN: Patient was examined and evaluated. All findings were discussed with the patient. All questions were answered to the patient's satisfaction. Excisional debridement down to including subcutaneous tissue with a number 5 mm dermal curette to the left heel done without incident. Predebridement measurement was 1.8 x 1.8 x 0.3 cm. Postdebridement measurement is 1.9 x 2.0 x 0.6 cm. Left heel is low clean and patted dry. Patient will continue dressing changes with Betadine soaked gauze dry sterile dressing and light compression wrap. Will be moved forward with authorization of the patient insurance for amulet skin graft substitute to aid in healing. Patient will continue antibiotics as prescribed. He will continue to offload the bilateral heels as discussed. Follow-up at the wound care center with Dr. Richards in 1 week.
--- NOTE | 2024-12-16 15:32 | WC ---
PHOTO 12/16/24 LEFT HEEL
[2024-12-23 11:10] VITALS: BP 135/82; PULSE 77; RESP 18; TEMP 36.3
--- NOTE | 2024-12-23 13:23 | PN.PCM_ITS ---
History of Present Illness Date of Service: 12/23/24 Chief Complaint: Left heel decubitus ulcer History of Wound: 84-year-old white male who was in the hospital for a left hip replacement in August and he developed a left heel from digging into the sheets turning and moving blister that opened. They have only been using [id number]-vwb-[id number] antibiotic ointment on it. Patient history of anemia. Saw their doctor and she referred them to the wound center. Progress of Wound: Stable left heel ulceration. Courtesy visit for Dr. Richards. Reapplied epi #3. Wound is much smaller in measurements and is healing well surrounding tissue looks good no odor no sign of infection noted. Subjective Subjective Patient and are very pleased with outcomes patient states he is offloading well Objective Data Objective Data Epi #3 applied tolerating the EpiFix well and is healing nicely no odor noted surrounding skin flesh colored edges clean and not rolled. Vital Signs: Vital Signs Temp Pulse Resp BP O2 Del Method 97.4 F L 77 18 135/82 H Room Air 12/23/24 11:10 12/23/24 11:10 12/23/24 11:10 12/23/24 11:10 12/16/24 10:41 Oxygen Delivery Method Room Air Physical Exam Const oriented x3 General Appearance: cooperative Exam Limitations: no limitations HEENT normocephalic Eyes PERRL General Eye: normal appearance of both eyes Neck full ROM General: normal visual inspection Resp normal respiratory effort Effort and Inspection: able to speak in complete sentences Auscultation: clear to auscultation bilaterally Cardio regular rate and regular rhythm Palpation: normal PMI Rate: regular rate Rhythm: regular rhythm GI Palpation: soft and no hepatosplenomegaly Back/Spine Cervical Spine: cervical ROM normal Thoracic Spine / Upper Back: normal to inspection Lumbar Spine / Lower Back: normal to inspection Extremity General Extremity: normal exam except as noted Peripheral Pulses: Yes popliteal pulses present Skin no rashes or lesions noted Lesions: no lesions Rashes: no rashes Wound Narrative: Open wound left heel pressure Neuro oriented x3 Gait (Neuro): antalgic Psych Appearance: grossly normal Speech: normal speech Thought Content: normal thought content Judgement: judgement good Debridement Note Debridement Note Wound debrided: Left heel decubitus ulcer Laterality: Left Wound Grade/Stage: Stage II Type of Debridement: Excisional debridement Anesthesia Used: 5% Lidocaine Gel Depth: in the subcutaneous layer Percentage of wound debrided: 100 Instrument Used: 5mm curette Tissue Removed: Fibrin Severity: Fat Layer Exposed Bleeding Controlled with: Compression and gauze Patient tolerated procedure: Patient tolerated procedure well Post-Debridement Measurements and Additional Note: Post-Debridement Measurements/Treatment - Nurse 1 - General Ulcer Assessment Start: 12/16/24 10:41 Freq: Status: Active Protocol: YOVANY.LOWEXT Activity Type Activity Date Activity User E-sign Co-sign Detail Recorded Client Recorded Date Recorded By Document 12/16/24 10:41 KW [id number] 12/16/24 10:46 KW Document 12/23/24 11:10 RB [id number] 12/23/24 11:13 RB 12/16/24 12/23/24 10:41 11:10 - Today's Visit Information Type of service Follow-up Visit Follow-up Visit (Physician/DIRECTOR OF PUPIL PERSONNEL PROGRAM (Physician/DIRECTOR OF PUPIL PERSONNEL PROGRAM ) ) Arrival Mode Wheelchair Wheelchair Transfer Assistance None Accompanied by Patient Identification Verified (Name & Yes Yes ) Patient Requires Transmission-Based No Precautions Vital Signs Temperature (97.8 F-99.1 F) 96.9 F L 97.4 F L Temperature Source Temporal Temporal Pulse Rate (60-100) 74 77 Pulse Location Monitor Monitor Respiratory Rate (12-18) 18 18 Respiratory rate source Observation Observation Oxygen Delivery Method Room Air Blood Pressure (90/60-120/80) 129/79 H 135/82 H Blood Pressure Mean (mm Hg) 95 99 Source Monitor Monitor Position Semi-Fowlers Semi-Fowlers Blood Pressure Location Right Arm Left Arm History Since Last Visit- (Skip if this is Patient's initial visit) Have you changed medications since your No No last visit? Any new allergies or adverse reactions No No Had a fall/change in ADL's that may No No increase risk of falls Signs or symptoms of abuse and/or No No neglect since last visit Have you been in the hospital since your No No last visit? Has dressing in place as prescribed Yes Yes Has compression in place as prescribed Yes Yes Has offloadiing in place as prescribed N/A N/A Experienced any changes in pain level or No No management Left Footwear Regular Shoe Slipper Right Footwear Regular Shoe Slipper Pain Scale: 0-10 Numeric Is Patient Pain Free? Yes Yes [facility] Nurse 1 - General Ulcer Measurement Start: 12/16/24 10:41 Freq: Status: Active Protocol: Activity Type Activity Date Activity User E-sign Co-sign Detail Recorded Client Recorded Date Recorded By Document 12/16/24 10:41 KW [id number] 12/16/24 10:46 KW Document 12/23/24 11:10 RB [id number] 12/23/24 11:13 RB 12/16/24 12/23/24 10:41 11:10 Wound Center Nurse 1 #1 LEFT HEEL -Combined with other wound No -Current Size (cm) - Length 1.5 0.4 -Current Size (cm) - Width 1.3 0.4 -Current Size (cm) - Depth 0.9 0.2 -Total Square Cm 1.95 0.16 -Date of Last Picture (Recall this 12/16/24 field) -Photo Taken Yes -Tunneling No -Undermining/Tunneling No -Circular Undermining No -Exudate Amt Medium Medium -Exudate Type Serosanguineous Serosanguineous -Wound Margin Distinct, Distinct, Outline Outline Attached Attached -Granulation Amt Medium (34-66%) Medium (34-66%) -Granulation Quality [place] -Slough/Fibrin Yes -Necrosis Amt Medium (34-66%) Medium (34-66%) -Necrotic Tissue Type Adherent Slough Adherent Slough -Structure Exposed N/A -Texture (Tiffanie-wound Skin Appearance) Assessed,Callus Assessed,Callus -Moisture (Tiffanie-wound Skin Appearance) Assessed Assessed -Color (Tiffanie-wound Skin Appearance) Assessed Assessed -Temperature (Tiffanie-wound Skin No Abnormality No Abnormality Appearance) (Pt Warm) (Pt Warm) -Tenderness on Palpation (Tiffanie-wound No No Skin Appearance) -Ulcer Cleansing Soap and Water Wound Cleanser -Foul Odor after Cleansing No No -Anesthetic Used 5% Lidocaine 5% Lidocaine Gel Gel WC - Nurse 2 - General Ulcer CM Notes Start: 12/16/24 10:41 Freq: Status: Active Protocol: Activity Type Activity Date Activity User E-sign Co-sign Detail Recorded Client Recorded Date Recorded By Document 12/16/24 10:52 JF [id number] 12/16/24 10:55 JF Document 12/23/24 11:40 BM [id number] 12/23/24 11:51 BM 12/16/24 12/23/24 10:52 11:40 Wound Center Nurse 2 #1 LEFT HEEL -Time 10:52 11:40 -Correct Patient Yes Yes -Correct Side, Site, Position Yes Yes -Correct Procedure Yes Yes -Procedure Performed Yes Yes -Type of Procedure Debridement Debridement -Clinical Debridement Subcutaneous Subcutaneous -Tissue Removed Subcutaneous Subcutaneous -Post Debridement (cm) - Length 1.7 1.3 -Post Debridement (cm) - Width 1.9 1.7 -Post Debridement (cm) - Depth 0.8 0.6 -Total Square (Post) (cm) 3.23 2.21 -Area of Debridement (cm) - Length 1.7 1.3 -Area of Debridement (cm) - Width 1.9 1.7 -Total Square (Area) (cm) 3.23 2.21 -Tunneling No No -Undermining/Tunneling No No -Circular Undermining No No -Wound/Ulcer Outcome Not Healed Not Healed -Ulcer Cleansing Rinsed/ Rinsed/ Irrigated with Irrigated with Saline Saline -Foul Odor after Cleansing No No -Bioengineered Tissue Yes Yes -Type of Bioengineered Tissue Epifix Epifix -Expiration Date 06/17/29 06/17/29 -Product Lot Number [id number] -Percent Used 100 100 -Lot number of Saline Used [id number] -Bleeding Controlled with Pressure Pressure -Treatment Response Procedure Procedure Tolerated Well Tolerated Well -Offloading No -Debridement - Subq, 1st 20sq cm No No -Apply Skin Sub - 1st 25 sq cm - Feet 1 1 -Epifix Application 1-4 (per sq cm) 4 4 Pain Scale: 0-10 Numeric Is Patient Pain Free? Yes Yes - Nurse 3 - General Ulcer D/C NN Start: 12/16/24 10:41 Freq: Status: Active Protocol: Activity Type Activity Date Activity User E-sign Co-sign Detail Recorded Client Recorded Date Recorded By Document 12/16/24 11:01 ML [id number] 12/16/24 11:03 ML Document 12/23/24 12:03 RB [id number] 12/23/24 12:03 RB 12/16/24 12/23/24 11:01 12:03 Wound Care Center Nurse 3 #1 LEFT HEEL -Other Dressing EPIFIX,WOUND VEIL,STERI STRIP,GAUZE -Primary Dressing Covered/Secured with Dry Gauze & Dry Gauze,Dry Roll Gauze, Gauze & Roll Secured with Gauze,Secured Tape with Tape LLE -Tubular Bandage Single Layer Single Layer -Size of Tubigrip Used Size D Size D -Size D ($) 1 1 Treatment Response Procedure Tolerated Well Pain Scale: 0-10 Numeric Is Patient Pain Free? Yes Yes WC - Visit Discharge Discharge Condition Stable Ambulatory Status Wheelchair Transportation Private Auto Accompanied by Medication Reconcilliation completed & No provided to patient/care provider Clinical Summary of Care Provided Yes Assessment/Plan Assessment/Plan (1) Decubitus ulcer of left heel, stage 2: CODE(S): L89.622 - Pressure ulcer of left heel, stage 2 PLAN: 3. EpiFix applied to left heel tolerated well covered with veil and Steri-Strips Aquacel extra and padded dressing. Patient instructed not to touch or shower with it on . Patient also instructed to offload continuous (2) Pain of left heel: CODE(S): M79.672 - Pain in left foot PLAN: Continue to offload left foot. (3) Anemia: CODE(S): D64.9 - Anemia, unspecified QUALIFIERS: Anemia type: unspecified type Qualified Code(s): D64.9 - Anemia, unspecified (4) Malnutrition: CODE(S): E46 - Unspecified protein-calorie malnutrition QUALIFIERS: Malnutrition type: protein-calorie malnutrition Protein-calorie malnutrition severity: unspecified severity Qualified Code(s): E46 - Unspecified protein-calorie malnutrition PLAN: Continues to drink protein shakes daily
--- NOTE | 2024-12-23 13:58 | WC ---
PHOTO 12/23/24 LEFT HEEL
[2024-12-30 11:25] VITALS: BP 136/62; PULSE 64; RESP 16; TEMP 36.1
--- NOTE | 2024-12-30 12:49 | PN.PCM_ITS ---
History of Present Illness Date of Service: 12/30/24 Chief Complaint: Left heel decubitus ulcer History of Wound: 84-year-old white male who was in the hospital for a left hip replacement in August and he developed a left heel from digging into the sheets turning and moving blister that opened. They have only been using [id number] antibiotic ointment on it. Patient history of anemia. Saw their doctor and she referred them to the wound center. Progress of Wound: Stable left heel ulceration. No sign of infection. Subjective Subjective Patient is a 84-year-old male presenting to the wound care center today for follow-up evaluation of full-thickness wound with amniotic skin graft substitute to the left heel. Patient saw Dr. Macias/nurse practitioner last week for amniotic skin graft substitute. Wound was looking good with no sign of infection. Patient has been compliant with weightbearing and offloading. He is a smoker and is reducing his smoking intake. He denies any trauma. Denies constitutional symptoms. No other pedal complaints at this time. Objective Data Objective Data Vital Signs: Vital Signs Temp Pulse Resp BP O2 Del Method 97 F L 64 16 136/62 H Room Air 12/30/24 11:25 12/30/24 11:25 12/30/24 11:25 12/30/24 11:25 12/16/24 10:41 Oxygen Delivery Method Room Air Lab / Micro Data Micro: Microbiology 12/02/24 10:57 Ulcer, Decubitus - Left Foot Gram Stain - Final 12/02/24 10:57 Ulcer, Decubitus - Left Foot Wound Culture - Preliminary Strep anginosus Enterococcus faecalis 12/02/24 10:57 Ulcer, Decubitus - Left Foot Anaerobic Culture - Preliminary Gram negative yue Gram negative yue#2 Gram negative cocco bacillus Physical Exam Narrative Vascular: DP and PT pulses are palpable. CFT is brisk. No erythema or drainage is appreciated at time of visit. Skin temperature is within normal limits. Neurological: Light touch intact. Patient does respond to painful stimuli. Dermatological: Full-thickness wound to the left heel with granular base. Negative probe to bone. Wound measures 1.4 x 1.9 x 0.2 cm. Excisional debridement down to including subcutaneous tissue with a number 5 mm dermal curette to the left heel done without incident. Predebridement measurement was 1.2 x 1.8 x 0.1 cm. Postdebridement measurement is 1.4 x 1.9 x 0.2 cm. EpiFix 18 mm disc was applied to the left heel full-thickness ulceration with 100% use. Third application. The graft site was free and clear of any infection. The wound/skin graft substitute was dressed with nonadherent bandage secured in place with Steri-Strips followed by bolster dressing as well as a double layer Tubigrip. Musculoskeletal: No pain to palpation full-thickness wound to left heel. No pain with calf pressure. Debridement Note Debridement Note Debridement Free Text: Excisional debridement down to including subcutaneous tissue with a number 5 mm dermal curette to the left heel done without incident. Predebridement measurement was 1.2 x 1.8 x 0.1 cm. Postdebridement measurement is 1.4 x 1.9 x 0.2 cm. EpiFix 18 mm disc was applied to the left heel full-thickness ulceration with 100% use. Third application. The graft site was free and clear of any infection. The wound/skin graft substitute was dressed with nonadherent bandage secured in place with Steri-Strips followed by bolster dressing as well as a double layer Tubigrip. Post-Debridement Measurements and Additional Note: Post-Debridement Measurements/Treatment - Nurse 1 - General Ulcer Assessment Start: 12/16/24 10:41 Freq: Status: Active Protocol: [email or web address] Activity Type Activity Date Activity User E-sign Co-sign Detail Recorded Client Recorded Date Recorded By Document 12/16/24 10:41 KW [id number] 12/16/24 10:46 KW Document 12/23/24 11:10 RB [id number] 12/23/24 11:13 RB Document 12/30/24 11:25 CP [id number] 12/30/24 11:28 CP 12/16/24 12/23/24 12/30/24 10:41 11:10 11:25 - Today's Visit Information Type of service Follow-up Visit Follow-up Visit Follow-up Visit (Physician/CUSTOMS PORT DIRECTOR (Physician/CUSTOMS PORT DIRECTOR (Physician/CUSTOMS PORT DIRECTOR ) ) ) Arrival Mode Wheelchair Wheelchair Wheelchair Transfer Assistance None Accompanied by Patient Identification Verified (Name & Yes Yes ) Patient Requires Transmission-Based No No Precautions Vital Signs Temperature (97.8 F-99.1 F) 96.9 F L 97.4 F L 97 F L Temperature Source Temporal Temporal Temporal Pulse Rate (60-100) 74 77 64 Pulse Location Monitor Monitor Monitor Respiratory Rate (12-18) 18 18 16 Respiratory rate source Observation Observation Observation Oxygen Delivery Method Room Air Blood Pressure (90/60-120/80) 129/79 H 135/82 H 136/62 H Blood Pressure Mean (mm Hg) 95 99 86 Source Monitor Monitor Monitor Position Semi-Fowlers Semi-Fowlers Semi-Fowlers Blood Pressure Location Right Arm Left Arm Right Arm History Since Last Visit- (Skip if this is Patient's initial visit) Have you changed medications since your No No No last visit? Any new allergies or adverse reactions No No No Had a fall/change in ADL's that may No No No increase risk of falls Signs or symptoms of abuse and/or No No No neglect since last visit Have you been in the hospital since your No No No last visit? Has dressing in place as prescribed Yes Yes Yes Has compression in place as prescribed Yes Yes Yes Has offloadiing in place as prescribed N/A N/A Experienced any changes in pain level or No No management Left Footwear Regular Shoe Slipper Slipper Right Footwear Regular Shoe Slipper Slipper Pain Scale: 0-10 Numeric Is Patient Pain Free? Yes Yes Yes WC - Nurse 1 - General Ulcer Measurement Start: 12/16/24 10:41 Freq: Status: Active Protocol: Activity Type Activity Date Activity User E-sign Co-sign Detail Recorded Client Recorded Date Recorded By Document 12/16/24 10:41 KW [id number] 12/16/24 10:46 KW Document 12/23/24 11:10 RB [id number] 12/23/24 11:13 RB Document 12/30/24 11:25 CP [id number] 12/30/24 11:28 CP 12/16/24 12/23/24 12/30/24 10:41 11:10 11:25 Wound Center Nurse 1 #1 LEFT HEEL -Combined with other wound No -Current Size (cm) - Length 1.5 0.4 1.5 -Current Size (cm) - Width 1.3 0.4 2 -Current Size (cm) - Depth 0.9 0.2 0.3 -Total Square Cm 1.95 0.16 3.0 -Date of Last Picture (Recall this 12/16/24 field) -Photo Taken Yes Yes -Tunneling No -Undermining/Tunneling No -Circular Undermining No -Exudate Amt Medium Medium Small -Exudate Type Serosanguineous Serosanguineous Serosanguineous -Wound Margin Distinct, Distinct, Flat & Intact Outline Outline Attached Attached -Granulation Amt Medium (34-66%) Medium (34-66%) Medium (34-66%) -Granulation Quality Centerton Centerton Centerton -Slough/Fibrin Yes -Necrosis Amt Medium (34-66%) Medium (34-66%) Medium (34-66%) -Necrotic Tissue Type Adherent Slough Adherent Slough Adherent Slough -Structure Exposed N/A -Texture (Tiffanie-wound Skin Appearance) Assessed,Callus Assessed,Callus No Abnormality -Moisture (Tiffanie-wound Skin Appearance) Assessed Assessed No Abnormality -Color (Tiffanie-wound Skin Appearance) Assessed Assessed No Abnormality -Temperature (Tiffanie-wound Skin No Abnormality No Abnormality No Abnormality Appearance) (Pt Warm) (Pt Warm) (Pt Warm) -Tenderness on Palpation (Tiffanie-wound No No No Skin Appearance) -Ulcer Cleansing Soap and Water Wound Cleanser Soap and Water -Foul Odor after Cleansing No No No -Anesthetic Used 5% Lidocaine 5% Lidocaine 5% Lidocaine Gel Gel Gel WC - Nurse 2 - General Ulcer CM Notes Start: 12/16/24 10:41 Freq: Status: Active Protocol: Activity Type Activity Date Activity User E-sign Co-sign Detail Recorded Client Recorded Date Recorded By Document 12/16/24 10:52 [id number] 12/16/24 10:55 Document 12/23/24 11:40 [facility] [id number] 12/23/24 11:51 [facility] Document 12/30/24 11:40 [id number] 12/30/24 11:45 12/16/24 12/23/24 12/30/24 10:52 11:40 11:40 Wound Center Nurse 2 #1 LEFT HEEL -Time 10:52 11:40 11:41 -Correct Patient Yes Yes Yes -Correct Side, Site, Position Yes Yes Yes -Correct Procedure Yes Yes Yes -Procedure Performed Yes Yes Yes -Type of Procedure Debridement Debridement Debridement -Clinical Debridement Subcutaneous Subcutaneous Subcutaneous -Tissue Removed Subcutaneous Subcutaneous Subcutaneous -Post Debridement (cm) - Length 1.7 1.3 1.4 -Post Debridement (cm) - Width 1.9 1.7 1.9 -Post Debridement (cm) - Depth 0.8 0.6 0.2 -Total Square (Post) (cm) 3.23 2.21 2.66 -Area of Debridement (cm) - Length 1.7 1.3 1.4 -Area of Debridement (cm) - Width 1.9 1.7 1.9 -Total Square (Area) (cm) 3.23 2.21 2.66 -Tunneling No No No -Undermining/Tunneling No No No -Circular Undermining No No No -Wound/Ulcer Outcome Not Healed Not Healed Not Healed -Ulcer Cleansing Rinsed/ Rinsed/ Rinsed/ Irrigated with Irrigated with Irrigated with Saline Saline Saline -Foul Odor after Cleansing No No No -Bioengineered Tissue Yes Yes Yes -Type of Bioengineered Tissue Epifix Epifix Epifix 18mm Disc -Expiration Date 06/17/29 06/17/29 08/15/29 -Product Lot Number [id number] -Percent Used 100 100 100 -Lot number of Saline Used [id number] -Bleeding Controlled with Pressure Pressure Pressure -Treatment Response Procedure Procedure Procedure Tolerated Well Tolerated Well Tolerated Well -Offloading No No -Debridement - Subq, 1st 20sq cm No No No -Apply Skin Sub - 1st 25 sq cm - Feet 1 1 1 -Epifix Application 1-4 (per sq cm) 4 4 -Epifix 18mm Disc Application 1-4 3 Pain Scale: 0-10 Numeric Is Patient Pain Free? Yes Yes Yes - Nurse 3 - General Ulcer D/C NN Start: 12/16/24 10:41 Freq: Status: Active Protocol: Activity Type Activity Date Activity User E-sign Co-sign Detail Recorded Client Recorded Date Recorded By Document 12/16/24 11:01 ML [id number] 12/16/24 11:03 ML Document 12/23/24 12:03 RB [id number] 12/23/24 12:03 RB Document 12/30/24 12:12 KW [id number] 12/30/24 12:12 KW 12/16/24 12/23/24 12/30/24 11:01 12:03 12:12 Wound Care Center Nurse 3 #1 LEFT HEEL -Other Dressing EPIFIX,WOUND VEIL,STERI STRIP,GAUZE -Primary Dressing Covered/Secured with Dry Gauze & Dry Gauze,Dry Dry Gauze & Roll Gauze, Gauze & Roll Roll Gauze, Secured with Gauze,Secured Secured with Tape with Tape Tape LLE -Tubular Bandage Single Layer Single Layer Single Layer -Size of Tubigrip Used Size D Size D Size D -Size D ($) 1 1 1 Treatment Response Procedure Tolerated Well Pain Scale: 0-10 Numeric Is Patient Pain Free? Yes Yes Yes WC - Visit Discharge Discharge Condition Stable Stable Ambulatory Status Wheelchair Wheelchair Transportation Private Auto Private Auto Accompanied by Medication Reconcilliation completed & No No provided to patient/care provider Clinical Summary of Care Provided Yes Yes Assessment/Plan Assessment/Plan (1) Chronic venous hypertension (idiopathic) with ulcer of right lower extremity: CODE(S): I87.311 - Chronic venous hypertension (idiopathic) with ulcer of right lower extremity; L97.919 - Non-pressure chronic ulcer of unspecified part of right lower leg with unspecified severity PLAN: Patient was examined and evaluated. All findings were discussed with the patient. All questions were answered to the patient's satisfaction. Excisional debridement down to including subcutaneous tissue with a number 5 mm dermal curette to the left heel done without incident. Predebridement measurement was 1.2 x 1.8 x 0.1 cm. Postdebridement measurement is 1.4 x 1.9 x 0.2 cm. EpiFix 18 mm disc was applied to the left heel full-thickness ulceration with 100% use. Third application. The graft site was free and clear of any i nfection. The wound/skin graft substitute was dressed with nonadherent bandage secured in place with Steri-Strips followed by bolster dressing as well as a double layer Tubigrip. Educated the patient about smoking sensation which she is understanding of. Educated the patient to continue high-protein intake diet which he will be doing. He will continue to offload and elevate as discussed. Patient will follow-up in 1 week. (2) Non-pressure chronic ulcer of left heel and midfoot with necrosis of muscle: CODE(S): L97.423 - Non-pressure chronic ulcer of left heel and midfoot with necrosis of muscle
--- NOTE | 2024-12-30 14:53 | WC ---
PHOTO 12/30/24 LEFT HEEL
[2025-01-06 10:29] VITALS: BP 127/85; PULSE 75; RESP 18; TEMP 36.6
--- NOTE | 2025-01-06 13:30 | PN.PCM_ITS ---
History of Present Illness Date of Service: 01/06/25 Chief Complaint: Left heel decubitus ulcer History of Wound: 84-year-old white male who was in the hospital for a left hip replacement in August and he developed a left heel from digging into the sheets turning and moving blister that opened. They have only been using [id number] antibiotic ointment on it. Patient history of anemia. Saw their doctor and she referred them to the wound center. Progress of Wound: Stable left heel ulceration. No sign of infection. Subjective Subjective Patient is a 84-year-old male presenting to clinic today for follow-up evaluation of full-thickness wound with amniotic skin graft substitute to left heel. Patient has been doing well and has been offloading as discussed. He still continues to smoke and drink even though we have discussed reduction in consumption which she is understanding of. Patient has no pain to left heel. Denies trauma. Denies constitutional symptoms. Denies strikethrough to the dressing. No other pedal complaints at this time. Objective Data Objective Data Vital Signs: Vital Signs Temp Pulse Resp BP O2 Del Method 98 F 75 18 127/85 H Room Air 01/06/25 10:29 01/06/25 10:29 01/06/25 10:29 01/06/25 10:29 01/06/25 10:29 Oxygen Delivery Method Room Air Lab / Micro Data Micro: Microbiology 12/02/24 10:57 Ulcer, Decubitus - Left Foot Gram Stain - Final 12/02/24 10:57 Ulcer, Decubitus - Left Foot Wound Culture - Preliminary Strep anginosus Enterococcus faecalis 12/02/24 10:57 Ulcer, Decubitus - Left Foot Anaerobic Culture - Preliminary Gram negative yue Gram negative yue#2 Gram negative cocco bacillus Physical Exam Narrative Vascular: DP and PT pulses are palpable. CFT is brisk. No erythema or drainage is appreciated at time of visit. Skin temperature is within normal limits. Neurological: Light touch intact. Patient does respond to painful stimuli. Dermatological: Full-thickness wound to the left heel with granular base. Negative probe to bone. Wound measures 0.9 x 1.5 x 0.2 cm. Excisional debridement down to including subcutaneous tissue with a number 5 mm dermal curette to the left heel done without incident. Predebridement measurement was 0.8 x 1.3 x 0.1 cm. Postdebridement measurement is 0.9 x 1.5 x 0.2 cm. EpiFix 18 mm disc was applied to the left heel full-thickness ulceration with 100% use. Fourth application. The graft site was free and clear of any infection. The wound/skin graft substitute was dressed with nonadherent bandage secured in place with Steri-Strips followed by bolster dressing as well as a double layer Tubigrip. Musculoskeletal: No pain to palpation full-thickness wound to left heel. No pain with calf pressure. Debridement Note Debridement Note Debridement Free Text: Excisional debridement down to including subcutaneous tissue with a number 5 mm dermal curette to the left heel done without incident. Predebridement measurement was 0.8 x 1.3 x 0.1 cm. Postdebridement measurement is 0.9 x 1.5 x 0.2 cm. EpiFix 18 mm disc was applied to the left heel full-thickness ulceration with 100% use. Fourth application. The graft site was free and clear of any infection. The wound/skin graft substitute was dressed with nonadherent bandage secured in place with Steri-Strips followed by bolster dressing as well as a double layer Tubigrip. Post-Debridement Measurements and Additional Note: Post-Debridement Measurements/Treatment - Nurse 1 - General Ulcer Assessment Start: 12/16/24 10:41 Freq: Status: Active Protocol: CHRIS Activity Type Activity Date Activity User E-sign Co-sign Detail Recorded Client Recorded Date Recorded By Document 12/16/24 10:41 KW [id number] 12/16/24 10:46 KW Document 12/23/24 11:10 RB [id number] 12/23/24 11:13 RB Document 12/30/24 11:25 CP [id number] 12/30/24 11:28 CP Document 01/06/25 10:29 MT [id number] 01/06/25 10:39 MT 12/16/24 12/23/24 12/30/24 10:41 11:10 11:25 - Today's Visit Information Type of service Follow-up Visit Follow-up Visit Follow-up Visit (Physician/WAREHOUSE ANALYST (Physician/WAREHOUSE ANALYST (Physician/WAREHOUSE ANALYST ) ) ) Arrival Mode Wheelchair Wheelchair Wheelchair Transfer Assistance None Accompanied by Patient Identification Verified (Name & Yes Yes ) Patient Requires Transmission-Based No No Precautions Safety Precautions Vital Signs Temperature (97.8 F-99.1 F) 96.9 F L 97.4 F L 97 F L Temperature Source Temporal Temporal Temporal Pulse Rate (60-100) 74 77 64 Pulse Location Monitor Monitor Monitor Respiratory Rate (12-18) 18 18 16 Respiratory rate source Observation Observation Observation Oxygen Delivery Method Room Air Blood Pressure (90/60-120/80) 129/79 H 135/82 H 136/62 H Blood Pressure Mean (mm Hg) 95 99 86 Source Monitor Monitor Monitor Position Semi-Fowlers Semi-Fowlers Semi-Fowlers Blood Pressure Location Right Arm Left Arm Right Arm History Since Last Visit- (Skip if this is Patient's initial visit) Have you changed medications since your No No No last visit? Any new allergies or adverse reactions No No No Had a fall/change in ADL's that may No No No increase risk of falls Signs or symptoms of abuse and/or No No No neglect since last visit Have you been in the hospital since your No No No last visit? Has dressing in place as prescribed Yes Yes Yes Has compression in place as prescribed Yes Yes Yes Has offloadiing in place as prescribed N/A N/A Experienced any changes in pain level or No No management Left Footwear Regular Shoe Slipper Slipper Right Footwear Regular Shoe Slipper Slipper Pain Scale: 0-10 Numeric Is Patient Pain Free? Yes Yes Yes 01/06/25 10:29 - Today's Visit Information Type of service Follow-up Visit (Physician/WAREHOUSE ANALYST ) Arrival Mode Ambulatory Transfer Assistance Accompanied by Patient Identification Verified (Name & Yes ) Patient Requires Transmission-Based Precautions Safety Precautions Fall Prevention Vital Signs Temperature (97.8 F-99.1 F) 98 F Temperature Source Temporal Pulse Rate (60-100) 75 Pulse Location Monitor Respiratory Rate (12-18) 18 Respiratory rate source Monitor Oxygen Delivery Method Room Air Blood Pressure (90/60-120/80) 127/85 H Blood Pressure Mean (mm Hg) 99 Source Monitor Position Sitting Blood Pressure Location Left Arm History Since Last Visit- (Skip if this is Patient's initial visit) Have you changed medications since your last visit? Any new allergies or adverse reactions Had a fall/change in ADL's that may increase risk of falls Signs or symptoms of abuse and/or neglect since last visit Have you been in the hospital since your last visit? Has dressing in place as prescribed Yes Has compression in place as prescribed Yes Has offloadiing in place as prescribed Yes Experienced any changes in pain level or Yes management Left Footwear Regular Shoe Right Footwear Regular Shoe Pain Scale: 0-10 Numeric Is Patient Pain Free? Yes WC - Nurse 1 - General Ulcer Measurement Start: 12/16/24 10:41 Freq: Status: Active Protocol: Activity Type Activity Date Activity User E-sign Co-sign Detail Recorded Client Recorded Date Recorded By Document 12/16/24 10:41 KW [id number] 12/16/24 10:46 KW Document 12/23/24 11:10 RB [id number] 12/23/24 11:13 RB Document 12/30/24 11:25 CP [id number] 12/30/24 11:28 CP Document 01/06/25 10:29 MT [id number] 01/06/25 10:39 MT 12/16/24 12/23/24 12/30/24 10:41 11:10 11:25 Wound Center Nurse 1 #1 LEFT HEEL -Combined with other wound No -Current Size (cm) - Length 1.5 0.4 1.5 -Current Size (cm) - Width 1.3 0.4 2 -Current Size (cm) - Depth 0.9 0.2 0.3 -Total Square Cm 1.95 0.16 3.0 -Date of Last Picture (Recall this 12/16/24 field) -Photo Taken Yes Yes -Tunneling No -Undermining/Tunneling No -Circular Undermining No -Exudate Amt Medium Medium Small -Exudate Type Serosanguineous Serosanguineous Serosanguineous -Wound Margin Distinct, Distinct, Flat & Intact Outline Outline Attached Attached -Granulation Amt Medium (34-66%) Medium (34-66%) Medium (34-66%) -Granulation Quality [place] -Slough/Fibrin Yes -Necrosis Amt Medium (34-66%) Medium (34-66%) Medium (34-66%) -Necrotic Tissue Type Adherent Slough Adherent Slough Adherent Slough -Structure Exposed N/A -Texture (Tiffanie-wound Skin Appearance) Assessed,Callus Assessed,Callus No Abnormality -Moisture (Tiffanie-wound Skin Appearance) Assessed Assessed No Abnormality -Color (Tiffanie-wound Skin Appearance) Assessed Assessed No Abnormality -Temperature (Tiffanie-wound Skin No Abnormality No Abnormality No Abnormality Appearance) (Pt Warm) (Pt Warm) (Pt Warm) -Tenderness on Palpation (Tiffanie-wound No No No Skin Appearance) -Ulcer Cleansing Soap and Water Wound Cleanser Soap and Water -Foul Odor after Cleansing No No No -Anesthetic Used 5% Lidocaine 5% Lidocaine 5% Lidocaine Gel Gel Gel Lower Limb Edema Present 01/06/25 10:29 Wound Center Nurse 1 #1 LEFT HEEL -Combined with other wound -Current Size (cm) - Length 1 -Current Size (cm) - Width 1.6 -Current Size (cm) - Depth 0.2 -Total Square Cm 1.6 -Date of Last Picture (Recall this field) -Photo Taken No -Tunneling No -Undermining/Tunneling No -Circular Undermining No -Exudate Amt Small -Exudate Type Serous -Wound Margin Flat & Intact -Granulation Amt Large (67-100%) -Granulation Quality Pale,[place] -Slough/Fibrin -Necrosis Amt Small (1-33%) -Necrotic Tissue Type Adherent Slough -Structure Exposed -Texture (Tiffanie-wound Skin Appearance) Assessed -Moisture (Tiffanie-wound Skin Appearance) Assessed -Color (Tiffanie-wound Skin Appearance) Assessed -Temperature (Tiffanie-wound Skin No Abnormality Appearance) (Pt Warm) -Tenderness on Palpation (Tiffanie-wound No Skin Appearance) -Ulcer Cleansing Soap and Water -Foul Odor after Cleansing -Anesthetic Used 5% Lidocaine Gel Lower Limb Edema Present NA WC - Nurse 2 - General Ulcer CM Notes Start: 12/16/24 10:41 Freq: Status: Active Protocol: Activity Type Activity Date Activity User E-sign Co-sign Detail Recorded Client Recorded Date Recorded By Document 12/16/24 10:52 [id number] 12/16/24 10:55 Document 12/23/24 11:40 [facility] [id number] 12/23/24 11:51 [facility] Document 12/30/24 11:40 [id number] 12/30/24 11:45 Document 01/06/25 10:50 [id number] 01/06/25 10:54 12/16/24 12/23/24 12/30/24 10:52 11:40 11:40 Wound Center Nurse 2 #1 LEFT HEEL -Time 10:52 11:40 11:41 -Correct Patient Yes Yes Yes -Correct Side, Site, Position Yes Yes Yes -Correct Procedure Yes Yes Yes -Procedure Performed Yes Yes Yes -Type of Procedure Debridement Debridement Debridement -Clinical Debridement Subcutaneous Subcutaneous Subcutaneous -Tissue Removed Subcutaneous Subcutaneous Subcutaneous -Post Debridement (cm) - Length 1.7 1.3 1.4 -Post Debridement (cm) - Width 1.9 1.7 1.9 -Post Debridement (cm) - Depth 0.8 0.6 0.2 -Total Square (Post) (cm) 3.23 2.21 2.66 -Area of Debridement (cm) - Length 1.7 1.3 1.4 -Area of Debridement (cm) - Width 1.9 1.7 1.9 -Total Square (Area) (cm) 3.23 2.21 2.66 -Tunneling No No No -Undermining/Tunneling No No No -Circular Undermining No No No -Wound/Ulcer Outcome Not Healed Not Healed Not Healed -Ulcer Cleansing Rinsed/ Rinsed/ Rinsed/ Irrigated with Irrigated with Irrigated with Saline Saline Saline -Foul Odor after Cleansing No No No -Bioengineered Tissue Yes Yes Yes -Type of Bioengineered Tissue Epifix Epifix Epifix 18mm Disc -Expiration Date 06/17/29 06/17/29 08/15/29 -Product Lot Number [id number] -Percent Used 100 100 100 -Lot number of Saline Used [id number] -Bleeding Controlled with Pressure Pressure Pressure -Treatment Response Procedure Procedure Procedure Tolerated Well Tolerated Well Tolerated Well -Offloading No No -Debridement - Subq, 1st 20sq cm No No No -Apply Skin Sub - 1st 25 sq cm - Feet 1 1 1 -Epifix Application 1-4 (per sq cm) 4 4 -Epifix 18mm Disc Application 1-4 3 Pain Scale: 0-10 Numeric Is Patient Pain Free? Yes Yes Yes 01/06/25 10:50 Wound Center Nurse 2 #1 LEFT HEEL -Time 10:50 -Correct Patient Yes -Correct Side, Site, Position Yes -Correct Procedure Yes -Procedure Performed Yes -Type of Procedure Debridement -Clinical Debridement Subcutaneous -Tissue Removed Subcutaneous -Post Debridement (cm) - Length 0.9 -Post Debridement (cm) - Width 1.5 -Post Debridement (cm) - Depth 0.2 -Total Square (Post) (cm) 1.35 -Area of Debridement (cm) - Length 0.9 -Area of Debridement (cm) - Width 1.5 -Total Square (Area) (cm) 1.35 -Tunneling No -Undermining/Tunneling No -Circular Undermining No -Wound/Ulcer Outcome Not Healed -Ulcer Cleansing Rinsed/ Irrigated with Saline -Foul Odor after Cleansing No -Bioengineered Tissue Yes -Type of Bioengineered Tissue Epifix 18mm Disc -Expiration Date 08/15/29 -Product Lot Number [id number] -Percent Used 100 -Lot number of Saline Used [id number] -Bleeding Controlled with Pressure -Treatment Response Procedure Tolerated Well -Offloading No -Debridement - Subq, 1st 20sq cm No -Apply Skin Sub - 1st 25 sq cm - Feet 1 -Epifix Application 1-4 (per sq cm) -Epifix 18mm Disc Application 1-4 3 Pain Scale: 0-10 Numeric Is Patient Pain Free? Yes - Nurse 3 - General Ulcer D/C NN Start: 12/16/24 10:41 Freq: Status: Active Protocol: Activity Type Activity Date Activity User E-sign Co-sign Detail Recorded Client Recorded Date Recorded By Document 12/16/24 11:01 ML [id number] 12/16/24 11:03 ML Document 12/23/24 12:03 RB [id number] 12/23/24 12:03 RB Document 12/30/24 12:12 KW [id number] 12/30/24 12:12 KW Document 01/06/25 10:59 MT [id number] 01/06/25 10:59 NV 12/16/24 12/23/24 12/30/24 11:01 12:03 12:12 Wound Care Center Nurse 3 #1 LEFT HEEL -Foul Odor after Cleansing -Negative Pressure Wound Therapy -Other Dressing EPIFIX,WOUND VEIL,STERI STRIP,GAUZE -Primary Dressing Covered/Secured with Dry Gauze & Dry Gauze,Dry Dry Gauze & Roll Gauze, Gauze & Roll Roll Gauze, Secured with Gauze,Secured Secured with Tape with Tape Tape LLE -Tubular Bandage Single Layer Single Layer Single Layer -Size of Tubigrip Used Size D Size D Size D -Size D ($) 1 1 1 Treatment Response Procedure Tolerated Well Pain Scale: 0-10 Numeric Is Patient Pain Free? Yes Yes Yes WC - Visit Discharge Discharge Condition Stable Stable Ambulatory Status Wheelchair Wheelchair Transportation Private Auto Private Auto Accompanied by Medication Reconcilliation completed & No No provided to patient/care provider Clinical Summary of Care Provided Yes Yes 01/06/25 10:59 Wound Care Center Nurse 3 #1 LEFT HEEL -Foul Odor after Cleansing No -Negative Pressure Wound Therapy N/A -Other Dressing -Primary Dressing Covered/Secured with Dry Gauze & Roll Gauze, Secured with Tape LLE -Tubular Bandage Single Layer -Size of Tubigrip Used Size D -Size D ($) 1 Treatment Response Pain Scale: 0-10 Numeric Is Patient Pain Free? Yes WC - Visit Discharge Discharge Condition Stable Ambulatory Status Ambulatory Transportation Private Auto Accompanied by Medication Reconcilliation completed & No provided to patient/care provider Clinical Summary of Care Provided Yes Assessment/Plan Assessment/Plan (1) Chronic venous hypertension (idiopathic) with ulcer of right lower extremity: CODE(S): I87.311 - Chronic venous hypertension (idiopathic) with ulcer of right lower extremity; L97.919 - Non-pressure chronic ulcer of unspecified part of right lower leg with unspecified severity PLAN: Patient was examined and evaluated. All findings were discussed with the patient. All questions were answered to the patient's satisfaction. Excisional debridement down to including subcutaneous tissue with a number 5 mm dermal curette to the left heel done without incident. Predebridement measurement was 0.8 x 1.3 x 0.1 cm. Postdebridement measurement is 0.9 x 1.5 x 0.2 cm. EpiFix 18 mm disc was applied to the left heel full-thickness ulceration with 100% use. Fourth application. The graft site was free and clear of any infect ion. The wound/skin graft substitute was dressed with nonadherent bandage secured in place with Steri-Strips followed by bolster dressing as well as a double layer Tubigrip. Educated the patient about smoking sensation which she is understanding of. Educated the patient to continue high-protein intake diet which he will be doing. He will continue to offload and elevate as discussed. Patient will follow-up in 1 week. (2) Non-pressure chronic ulcer of left heel and midfoot with necrosis of muscle: CODE(S): L97.423 - Non-pressure chronic ulcer of left heel and midfoot with necrosis of muscle
[2025-01-13 10:08] VITALS: BP 115/63; PULSE 75; RESP 15; TEMP 36.2
--- NOTE | 2025-01-13 13:07 | PCM.WC.PN ---
History of Present Illness Date of Service: 01/13/25 Chief Complaint: Left heel decubitus ulcer History of Wound: 84-year-old white male who was in the hospital for a left hip replacement in August and he developed a left heel from digging into the sheets turning and moving blister that opened. They have only been using [id number] antibiotic ointment on it. Patient history of anemia. Saw their doctor and she referred them to the wound center. Progress of Wound: Stable left heel ulceration. No sign of infection. Subjective Subjective Patient is 84-year-old male presenting to clinic today for follow-up evaluation of full-thickness wound with amniotic skin graft substitute to the left heel. He has left the dressing clean dry and intact. He denies strikethrough. He has offloading as discussed. He does continue to smoke and has no plan on quitting per his words. He denies trauma. Denies constitutional symptoms. No other pedal complaints at this time. Objective Data Objective Data Vital Signs: Vital Signs Temp Pulse Resp BP O2 Del Method 97.1 F L 75 15 115/63 Room Air 01/13/25 10:08 01/13/25 10:08 01/13/25 10:08 01/13/25 10:08 01/06/25 10:29 Oxygen Delivery Method Room Air Lab / Micro Data Micro: Microbiology 12/02/24 10:57 Ulcer, Decubitus - Left Foot Gram Stain - Final 12/02/24 10:57 Ulcer, Decubitus - Left Foot Wound Culture - Preliminary Strep anginosus Enterococcus faecalis 12/02/24 10:57 Ulcer, Decubitus - Left Foot Anaerobic Culture - Preliminary Gram negative yue Gram negative yue#2 Gram negative cocco bacillus Physical Exam Narrative Vascular: DP and PT pulses are palpable. CFT is brisk. No erythema or drainage is appreciated at time of visit. Skin temperature is within normal limits. Neurological: Light touch intact. Patient does respond to painful stimuli. Dermatological: Full-thickness wound to the left heel with granular base. Negative probe to bone. Wound measures 0.7 x 0.9 x 0.2 cm. Excisional debridement down to including subcutaneous tissue with a number 5 mm dermal curette to the left heel done without incident. Predebridement measurement was 0.5 x 0.6 x 0.1 cm. Postdebridement measurement is 0.7 x 0.9 x 0.2 cm. EpiFix 18 mm disc was applied to the left heel full-thickness ulceration with 100% use. Fifth application. The graft site was free and clear of any infection. The wound/skin graft substitute was dressed with nonadherent bandage secured in place with Steri-Strips followed by bolster dressing as well as a double layer Tubigrip. Musculoskeletal: No pain to palpation full-thickness wound to left heel. No pain with calf pressure. Debridement Note Debridement Note Debridement Free Text: Excisional debridement down to including subcutaneous tissue with a number 5 mm dermal curette to the left heel done without incident. Predebridement measurement was 0.5 x 0.6 x 0.1 cm. Postdebridement measurement is 0.7 x 0.9 x 0.2 cm. EpiFix 18 mm disc was applied to the left heel full-thickness ulceration with 100% use. Fifth application. The graft site was free and clear of any infection. The wound/skin graft substitute was dressed with nonadherent bandage secured in place with Steri-Strips followed by bolster dressing as well as a double layer Tubigrip. Post-Debridement Measurements and Additional Note: Post-Debridement Measurements/Treatment - Nurse 1 - General Ulcer Assessment Start: 12/16/24 10:41 Freq: Status: Active Protocol: CHRIS Activity Type Activity Date Activity User E-sign Co-sign Detail Recorded Client Recorded Date Recorded By Document 12/16/24 10:41 KW [id number] 12/16/24 10:46 KW Document 12/23/24 11:10 RB [id number] 12/23/24 11:13 RB Document 12/30/24 11:25 CP [id number] 12/30/24 11:28 CP Document 01/06/25 10:29 MT [id number] 01/06/25 10:39 MT Document 01/13/25 10:08 ML [id number] 01/13/25 10:15 ML 12/16/24 12/23/24 12/30/24 10:41 11:10 11:25 - Today's Visit Information Type of service Follow-up Visit Follow-up Visit Follow-up Visit (Physician/JAMB CUTTER (Physician/JAMB CUTTER (Physician/JAMB CUTTER ) ) ) Arrival Mode Wheelchair Wheelchair Wheelchair Transfer Assistance None Accompanied by Patient Identification Verified (Name & Yes Yes ) Patient Requires Transmission-Based No No Precautions Safety Precautions Vital Signs Temperature (97.8 F-99.1 F) 96.9 F L 97.4 F L 97 F L Temperature Source Temporal Temporal Temporal Pulse Rate (60-100) 74 77 64 Pulse Location Monitor Monitor Monitor Respiratory Rate (12-18) 18 18 16 Respiratory rate source Observation Observation Observation Oxygen Delivery Method Room Air Blood Pressure (90/60-120/80) 129/79 H 135/82 H 136/62 H Blood Pressure Mean (mm Hg) 95 99 86 Source Monitor Monitor Monitor Position Semi-Fowlers Semi-Fowlers Semi-Fowlers Blood Pressure Location Right Arm Left Arm Right Arm History Since Last Visit- (Skip if this is Patient's initial visit) Have you changed medications since your No No No last visit? Any new allergies or adverse reactions No No No Had a fall/change in ADL's that may No No No increase risk of falls Signs or symptoms of abuse and/or No No No neglect since last visit Have you been in the hospital since your No No No last visit? Has dressing in place as prescribed Yes Yes Yes Has compression in place as prescribed Yes Yes Yes Has offloadiing in place as prescribed N/A N/A Experienced any changes in pain level or No No management Left Footwear Regular Shoe Slipper Slipper Right Footwear Regular Shoe Slipper Slipper Pain Scale: 0-10 Numeric Is Patient Pain Free? Yes Yes Yes 01/06/25 01/13/25 10:29 10:08 - Today's Visit Information Type of service Follow-up Visit Follow-up Visit (Physician/JAMB CUTTER (Physician/JAMB CUTTER ) ) Arrival Mode Ambulatory Ambulatory, Walker Transfer Assistance None Accompanied by Patient Identification Verified (Name & Yes Yes ) Patient Requires Transmission-Based No Precautions Safety Precautions Fall Prevention Vital Signs Temperature (97.8 F-99.1 F) 98 F 97.1 F L Temperature Source Temporal Temporal Pulse Rate (60-100) 75 75 Pulse Location Monitor Monitor Respiratory Rate (12-18) 18 15 Respiratory rate source Monitor Observation Oxygen Delivery Method Room Air Blood Pressure (90/60-120/80) 127/85 H 115/63 Blood Pressure Mean (mm Hg) 99 80 Source Monitor Monitor Position Sitting Sitting Blood Pressure Location Left Arm Left Arm History Since Last Visit- (Skip if this is Patient's initial visit) Have you changed medications since your No last visit? Any new allergies or adverse reactions No Had a fall/change in ADL's that may No increase risk of falls Signs or symptoms of abuse and/or No neglect since last visit Have you been in the hospital since your No last visit? Has dressing in place as prescribed Yes Yes Has compression in place as prescribed Yes Yes Has offloadiing in place as prescribed Yes No Experienced any changes in pain level or Yes No management Left Footwear Regular Shoe Right Footwear Regular Shoe Pain Scale: 0-10 Numeric Is Patient Pain Free? Yes Yes WC - Nurse 1 - General Ulcer Measurement Start: 12/16/24 10:41 Freq: Status: Active Protocol: Activity Type Activity Date Activity User E-sign Co-sign Detail Recorded Client Recorded Date Recorded By Document 12/16/24 10:41 KW [id number] 12/16/24 10:46 KW Document 12/23/24 11:10 RB [id number] 12/23/24 11:13 RB Document 12/30/24 11:25 CP [id number] 12/30/24 11:28 CP Document 01/06/25 10:29 MT [id number] 01/06/25 10:39 MT Document 01/13/25 10:08 ML [id number] 01/13/25 10:15 ML 12/16/24 12/23/24 12/30/24 10:41 11:10 11:25 Wound Center Nurse 1 #1 LEFT HEEL -Combined with other wound No -Current Size (cm) - Length 1.5 0.4 1.5 -Current Size (cm) - Width 1.3 0.4 2 -Current Size (cm) - Depth 0.9 0.2 0.3 -Total Square Cm 1.95 0.16 3.0 -Date of Last Picture (Recall this 12/16/24 field) -Photo Taken Yes Yes -Tunneling No -Undermining/Tunneling No -Circular Undermining No -Exudate Amt Medium Medium Small -Exudate Type Serosanguineous Serosanguineous Serosanguineous -Wound Margin Distinct, Distinct, Flat & Intact Outline Outline Attached Attached -Granulation Amt Medium (34-66%) Medium (34-66%) Medium (34-66%) -Granulation Quality Grace Grace Grace -Slough/Fibrin Yes -Necrosis Amt Medium (34-66%) Medium (34-66%) Medium (34-66%) -Necrotic Tissue Type Adherent Slough Adherent Slough Adherent Slough -Structure Exposed N/A -Texture (Tiffanie-wound Skin Appearance) Assessed,Callus Assessed,Callus No Abnormality -Moisture (Tiffanie-wound Skin Appearance) Assessed Assessed No Abnormality -Color (Tiffanie-wound Skin Appearance) Assessed Assessed No Abnormality -Temperature (Tiffanie-wound Skin No Abnormality No Abnormality No Abnormality Appearance) (Pt Warm) (Pt Warm) (Pt Warm) -Tenderness on Palpation (Tiffanie-wound No No No Skin Appearance) -Ulcer Cleansing Soap and Water Wound Cleanser Soap and Water -Foul Odor after Cleansing No No No -Anesthetic Used 5% Lidocaine 5% Lidocaine 5% Lidocaine Gel Gel Gel Lower Limb Edema Present 01/06/25 01/13/25 10:29 10:08 Wound Center Nurse 1 #1 LEFT HEEL -Combined with other wound -Current Size (cm) - Length 1 0.5 -Current Size (cm) - Width 1.6 0.5 -Current Size (cm) - Depth 0.2 0.3 -Total Square Cm 1.6 0.25 -Date of Last Picture (Recall this field) -Photo Taken No -Tunneling No -Undermining/Tunneling No -Circular Undermining No -Exudate Amt Small Small -Exudate Type Serous Serosanguineous -Wound Margin Flat & Intact -Granulation Amt Large (67-100%) -Granulation Quality Pale,Grace -Slough/Fibrin Yes -Necrosis Amt Small (1-33%) Medium (34-66%) -Necrotic Tissue Type Adherent Slough Adherent Slough -Structure Exposed -Texture (Tiffanie-wound Skin Appearance) Assessed Assessed -Moisture (Tiffanie-wound Skin Appearance) Assessed Assessed -Color (Tiffanie-wound Skin Appearance) Assessed Assessed -Temperature (Tiffanie-wound Skin No Abnormality No Abnormality Appearance) (Pt Warm) (Pt Warm) -Tenderness on Palpation (Tiffanie-wound No No Skin Appearance) -Ulcer Cleansing Soap and Water Soap and Water -Foul Odor after Cleansing No -Anesthetic Used 5% Lidocaine 5% Lidocaine Gel Gel Lower Limb Edema Present NA WC - Nurse 2 - General Ulcer CM Notes Start: 12/16/24 10:41 Freq: Status: Active Protocol: Activity Type Activity Date Activity User E-sign Co-sign Detail Recorded Client Recorded Date Recorded By Document 12/16/24 10:52 [id number] 12/16/24 10:55 Document 12/23/24 11:40 [facility] [id number] 12/23/24 11:51 [facility] Document 12/30/24 11:40 [id number] 12/30/24 11:45 Document 01/06/25 10:50 [id number] 01/06/25 10:54 Document 01/13/25 10:36 [id number] 01/13/25 10:41 12/16/24 12/23/24 12/30/24 10:52 11:40 11:40 Wound Center Nurse 2 #1 LEFT HEEL -Time 10:52 11:40 11:41 -Correct Patient Yes Yes Yes -Correct Side, Site, Position Yes Yes Yes -Correct Procedure Yes Yes Yes -Procedure Performed Yes Yes Yes -Type of Procedure Debridement Debridement Debridement -Clinical Debridement Subcutaneous Subcutaneous Subcutaneous -Tissue Removed Subcutaneous Subcutaneous Subcutaneous -Post Debridement (cm) - Length 1.7 1.3 1.4 -Post Debridement (cm) - Width 1.9 1.7 1.9 -Post Debridement (cm) - Depth 0.8 0.6 0.2 -Total Square (Post) (cm) 3.23 2.21 2.66 -Area of Debridement (cm) - Length 1.7 1.3 1.4 -Area of Debridement (cm) - Width 1.9 1.7 1.9 -Total Square (Area) (cm) 3.23 2.21 2.66 -Tunneling No No No -Undermining/Tunneling No No No -Circular Undermining No No No -Wound/Ulcer Outcome Not Healed Not Healed Not Healed -Ulcer Cleansing Rinsed/ Rinsed/ Rinsed/ Irrigated with Irrigated with Irrigated with Saline Saline Saline -Foul Odor after Cleansing No No No -Bioengineered Tissue Yes Yes Yes -Type of Bioengineered Tissue Epifix Epifix Epifix 18mm Disc -Expiration Date 06/17/29 06/17/29 08/15/29 -Product Lot Number [id number] -Percent Used 100 100 100 -Lot number of Saline Used [id number] -Bleeding Controlled with Pressure Pressure Pressure -Treatment Response Procedure Procedure Procedure Tolerated Well Tolerated Well Tolerated Well -Offloading No No -Debridement - Subq, 1st 20sq cm No No No -Apply Skin Sub - 1st 25 sq cm - Feet 1 1 1 -Epifix Application 1-4 (per sq cm) 4 4 -Epifix 18mm Disc Application 1-4 3 Pain Scale: 0-10 Numeric Is Patient Pain Free? Yes Yes Yes 01/06/25 01/13/25 10:50 10:36 Wound Center Nurse 2 #1 LEFT HEEL -Time 10:50 10:37 -Correct Patient Yes Yes -Correct Side, Site, Position Yes Yes -Correct Procedure Yes Yes -Procedure Performed Yes Yes -Type of Procedure Debridement Debridement -Clinical Debridement Subcutaneous Subcutaneous -Tissue Removed Subcutaneous Subcutaneous -Post Debridement (cm) - Length 0.9 -Post Debridement (cm) - Width 1.5 -Post Debridement (cm) - Depth 0.2 -Total Square (Post) (cm) 1.35 -Area of Debridement (cm) - Length 0.9 -Area of Debridement (cm) - Width 1.5 -Total Square (Area) (cm) 1.35 -Tunneling No No -Undermining/Tunneling No No -Circular Undermining No No -Wound/Ulcer Outcome Not Healed Not Healed -Ulcer Cleansing Rinsed/ Rinsed/ Irrigated with Irrigated with Saline Saline -Foul Odor after Cleansing No No -Bioengineered Tissue Yes Yes -Type of Bioengineered Tissue Epifix 18mm Epifix 18mm Disc Disc -Expiration Date 08/15/29 09/15/29 -Product Lot Number [id number] -Percent Used 100 100 -Lot number of Saline Used [id number] -Bleeding Controlled with Pressure Pressure -Treatment Response Procedure Procedure Tolerated Well Tolerated Well -Offloading No No -Debridement - Subq, 1st 20sq cm No No -Apply Skin Sub - 1st 25 sq cm - Feet 1 1 -Epifix Application 1-4 (per sq cm) -Epifix 18mm Disc Application 1-4 3 3 Pain Scale: 0-10 Numeric Is Patient Pain Free? Yes Yes WC - Nurse 3 - General Ulcer D/C NN Start: 12/16/24 10:41 Freq: Status: Active Protocol: Activity Type Activity Date Activity User E-sign Co-sign Detail Recorded Client Recorded Date Recorded By Document 12/16/24 11:01 ML [id number] 12/16/24 11:03 ML Document 12/23/24 12:03 RB [id number] 12/23/24 12:03 RB Document 12/30/24 12:12 KW [id number] 12/30/24 12:12 KW Document 01/06/25 10:59 MT [id number] 01/06/25 10:59 MT Document 01/13/25 10:52 KW [id number] 01/13/25 10:53 KW 12/16/24 12/23/24 12/30/24 11:01 12:03 12:12 Wound Care Center Nurse 3 #1 LEFT HEEL -Foul Odor after Cleansing -Negative Pressure Wound Therapy -Other Dressing EPIFIX,WOUND VEIL,STERI STRIP,GAUZE -Primary Dressing Covered/Secured with Dry Gauze & Dry Gauze,Dry Dry Gauze & Roll Gauze, Gauze & Roll Roll Gauze, Secured with Gauze,Secured Secured with Tape with Tape Tape LLE -Tubular Bandage Single Layer Single Layer Single Layer -Size of Tubigrip Used Size D Size D Size D -Size D ($) 1 1 1 Treatment Response Procedure Tolerated Well Pain Scale: 0-10 Numeric Is Patient Pain Free? Yes Yes Yes WC - Visit Discharge Discharge Condition Stable Stable Ambulatory Status Wheelchair Wheelchair Transportation Private Auto Private Auto Accompanied by Medication Reconcilliation completed & No No provided to patient/care provider Clinical Summary of Care Provided Yes Yes 01/06/25 01/13/25 10:59 10:52 Wound Care Center Nurse 3 #1 LEFT HEEL -Foul Odor after Cleansing No -Negative Pressure Wound Therapy N/A -Other Dressing -Primary Dressing Covered/Secured with Dry Gauze & Dry Gauze & Roll Gauze, Roll Gauze, Secured with Secured with Tape Tape LLE -Tubular Bandage Single Layer Single Layer -Size of Tubigrip Used Size D Size D -Size D ($) 1 1 Treatment Response Pain Scale: 0-10 Numeric Is Patient Pain Free? Yes Yes WC - Visit Discharge Discharge Condition Stable Stable Ambulatory Status Ambulatory Ambulatory, Walker Transportation Private Auto Private Auto Accompanied by Medication Reconcilliation completed & No No provided to patient/care provider Clinical Summary of Care Provided Yes Yes Assessment/Plan Assessment/Plan (1) Chronic venous hypertension (idiopathic) with ulcer of right lower extremity: CODE(S): I87.311 - Chronic venous hypertension (idiopathic) with ulcer of right lower extremity; L97.919 - Non-pressure chronic ulcer of unspecified part of right lower leg with unspecified severity PLAN: Patient was examined and evaluated. All findings were discussed with the patient. All questions were answered to the patient's satisfaction. Excisional debridement down to including subcutaneous tissue with a number 5 mm dermal curette to the left heel done without incident. Predebridement measurement was 0.5 x 0.6 x 0.1 cm. Postdebridement measurement is 0.7 x 0.9 x 0.2 cm. EpiFix 18 mm disc was applied to the left heel full-thickness ulceration with 100% use. Fifth application. The graft site was free and clear of any infection. The wound/skin graft substitute was dressed with nonadherent bandage secured in place with Steri-Strips followed by bolster dressing as well as a double layer Tubigrip. Educated the patient about smoking sensation which she is understanding of. Educated the patient to continue high-protein intake diet which he will be doing. He will continue to offload and elevate as discussed. Patient will follow-up in 1 week. (2) Non-pressure chronic ulcer of left heel and midfoot with necrosis of muscle: CODE(S): L97.423 - Non-pressure chronic ulcer of left heel and midfoot with necrosis of muscle
--- NOTE | 2025-01-14 09:33 | WC ---
PHOTO-01/13/25 LEFT HEEL
== END 2025-01-14 23:59 | disposition home or self-care (01) ==
LOC: WC 10:00
PROVIDERS: PCP Internal Medicine; Referring Provider Physician Assistant; Visit Provider Podiatrist Foot & Ankle Surgery
DX: L89.623 Pressure ulcer of left heel, stage 3 (principal); F17.200 Nicotine dependence, unspecified, uncomplicated; D64.9 Anemia, unspecified; Z79.899 Other long term (current) drug therapy
CPT/HCPCS: 15275; Q4186

== ENCOUNTER 2025-02-10 10:00 | Outpatient (RCR) | payer MEDICARE, SELFPAY ==
[2025-01-20 10:08] VITALS: BP 150/89; PULSE 84; RESP 16; TEMP 36.4
--- NOTE | 2025-01-20 10:34 | PCM.WC.PN ---
History of Present Illness Date of Service: 01/20/25 Chief Complaint: Left heel decubitus ulcer History of Wound: 84-year-old white male who was in the hospital for a left hip replacement in August and he developed a left heel from digging into the sheets turning and moving blister that opened. They have only been using [id number] antibiotic ointment on it. Patient history of anemia. Saw their doctor and she referred them to the wound center. Progress of Wound: Stable left heel ulceration. No sign of infection. Subjective Subjective Patient is a 84-year-old male presenting to clinic today follow-up evaluation of full-thickness wound to the left heel with amniotic skin graft substitute. Patient is left the dressing clean dry and intact. He still smokes about the same and has no attempt to decrease smoking as it finds it difficult to do that. He denies any pain especially with weightbearing. He is offloading as discussed. Denies trauma. Denies constitutional symptoms. No other pedal complaints at this time. Objective Data Objective Data Vital Signs: Vital Signs Temp Pulse Resp BP 97.5 F L 84 16 150/89 H 01/20/25 10:08 01/20/25 10:08 01/20/25 10:08 01/20/25 10:08 Lab / Micro Data Micro: Microbiology 12/02/24 10:57 Ulcer, Decubitus - Left Foot Gram Stain - Final 12/02/24 10:57 Ulcer, Decubitus - Left Foot Wound Culture - Preliminary Strep anginosus Enterococcus faecalis 12/02/24 10:57 Ulcer, Decubitus - Left Foot Anaerobic Culture - Preliminary Gram negative yue Gram negative yue#2 Gram negative cocco bacillus Physical Exam Narrative Vascular: DP and PT pulses are palpable. CFT is brisk. No erythema. Skin temperature is within normal limits. Neurological: Light touch intact. Patient does respond to painful stimuli. Dermatological: Full-thickness wound to the left heel with granular base. Negative probe to bone. Wound measures 0.7 x 1.2 x 0.1 cm. Excisional debridement down to including subcutaneous tissue with a number 5 mm dermal curette to the left heel done without incident. Predebridement measurement was 0.6 x 1.0 x 0.1 cm. Postdebridement measurement is 0.7 x 1.2 x 0.1 cm. EpiFix 18 mm disc was applied to the left heel full-thickness ulceration with 100% use. 6th application. The graft site was free and clear of any infection. The wound/skin graft substitute was dressed with nonadherent bandage secured in place with Steri-Strips followed by bolster dressing as well as a double layer Tubigrip. Musculoskeletal: No pain to palpation full-thickness wound to left heel. No pain with calf pressure. Debridement Note Debridement Note Debridement Free Text: Excisional debridement down to including subcutaneous tissue with a number 5 mm dermal curette to the left heel done without incident. Predebridement measurement was 0.6 x 1.0 x 0.1 cm. Postdebridement measurement is 0.7 x 1.2 x 0.1 cm. EpiFix 18 mm disc was applied to the left heel full-thickness ulceration with 100% use. 6th application. The graft site was free and clear of any infection. The wound/skin graft substitute was dressed with nonadherent bandage secured in place with Steri-Strips followed by bolster dressing as well as a double layer Tubigrip. 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 Any new allergies or adverse reactions No Had a fall/change in ADL's that may No increase risk of falls Signs or symptoms of abuse and/or No neglect since last visit Have you been in the hospital since your No last visit? Has dressing in place as prescribed Yes Has compression in place as prescribed Yes Has offloadiing in place as prescribed No Experienced any changes in pain level or No management Pain Scale: 0-10 Numeric Is Patient Pain Free? Yes - Nurse 1 - General Ulcer Measurement Start: 01/20/25 10:08 Freq: Status: Active Protocol: Activity Type Activity Date Activity User E-sign Co-sign Detail Recorded Client Recorded Date Recorded By Document 01/20/25 10:08 TONI [id number] 01/20/25 10:11 TONI 01/20/25 10:08 Wound Center Nurse 1 #1 LEFT HEEL -Current Size (cm) - Length 0.5 -Current Size (cm) - Width 0.6 -Current Size (cm) - Depth 0.2 -Total Square Cm 0.30 -Exudate Amt Medium -Exudate Type Sanguineous -Wound Margin Distinct, Outline Attached -Granulation Amt Medium (34-66%) -Slough/Fibrin Yes -Necrosis Amt Small (1-33%) -Necrotic Tissue Type Adherent Slough -Texture (Tiffanie-wound Skin Appearance) Assessed -Color (Tiffanie-wound Skin Appearance) Assessed -Temperature (Tiffanie-wound Skin No Abnormality Appearance) (Pt Warm) -Tenderness on Palpation (Tiffanie-wound No Skin Appearance) -Ulcer Cleansing Soap and Water -Foul Odor after Cleansing No -Anesthetic Used 5% Lidocaine Gel - Nurse 2 - General Ulcer CM Notes Start: 01/20/25 10:08 Freq: Status: Active Protocol: Activity Type Activity Date Activity User E-sign Co-sign Detail Recorded Client Recorded Date Recorded By Document 01/20/25 10:19 MARIA DE JESUS [id number] 01/20/25 10:23 MARIA DE JESUS 01/20/25 10:19 Wound Center Nurse 2 -Time 10:20 -Correct Patient Yes -Correct Side, Site, Position Yes -Correct Procedure Yes -Procedure Performed Yes -Type of Procedure Debridement -Clinical Debridement Subcutaneous -Tissue Removed Subcutaneous -Post Debridement (cm) - Length 0.7 -Post Debridement (cm) - Width 1.2 -Post Debridement (cm) - Depth 0.1 -Total Square (Post) (cm) 0.84 -Area of Debridement (cm) - Length 0.7 -Area of Debridement (cm) - Width 1.2 -Total Square (Area) (cm) 0.84 -Tunneling No -Undermining/Tunneling No -Circular Undermining No -Wound/Ulcer Outcome Not Healed -Ulcer Cleansing Rinsed/ Irrigated with Saline -Foul Odor after Cleansing No -Bioengineered Tissue Yes -Type of Bioengineered Tissue Epifix 18mm Disc -Expiration Date 09/15/29 -Product Lot Number [id number] -Percent Used 100 -Lot number of Saline Used [id number] -Bleeding Controlled with Pressure -Treatment Response Procedure Tolerated Well -Offloading No -Debridement - Subq, 1st 20sq cm No -Apply Skin Sub - 1st 25 sq cm - Feet 1 -Epifix 18mm Disc Application 1-4 3 Pain Scale: 0-10 Numeric Is Patient Pain Free? Yes - Nurse 3 - General Ulcer D/C NN Start: 01/20/25 10:08 Freq: Status: Active Protocol: Activity Type Activity Date Activity User E-sign Co-sign Detail Recorded Client Recorded Date Recorded By Document 01/20/25 10:32 [place] [id number] 01/20/25 10:33 [place] 01/20/25 10:32 Wound Care Center Nurse 3 #1 LEFT HEEL -Foul Odor after Cleansing No -Negative Pressure Wound Therapy N/A -Other Dressing wound veil, hydrogel -Primary Dressing Covered/Secured with Dry Gauze & Roll Gauze LLE -Tubular Bandage Single Layer -Size of Tubigrip Used Size D -Size D ($) 1 Pain Scale: 0-10 Numeric Is Patient Pain Free? Yes - Visit Discharge Discharge Condition Stable Ambulatory Status Ambulatory Transportation Private Auto Medication Reconcilliation completed & No provided to patient/care provider Clinical Summary of Care Provided Yes Assessment/Plan Assessment/Plan (1) Chronic venous hypertension (idiopathic) with ulcer of right lower extremity: CODE(S): I87.311 - Chronic venous hypertension (idiopathic) with ulcer of right lower extremity; L97.919 - Non-pressure chronic ulcer of unspecified part of right lower leg with unspecified severity PLAN: Patient was examined and evaluated. All findings were discussed with the patient. All questions were answered to the patient's satisfaction. Excisional debridement down to including subcutaneous tissue with a number 5 mm dermal curette to the left heel done without incident. Predebridement measurement was 0.6 x 1.0 x 0.1 cm. Postdebridement measurement is 0.7 x 1.2 x 0.1 cm. EpiFix 18 mm disc was applied to the left heel full-thickness ulceration with 100% use. 6th application. The graft site was free and clear of any infection. The wound/skin graft substitute was dressed with nonadherent bandage secured in place with Steri-Strips followed by bolster dressing as well as a double layer Tubigrip. Educated the patient about smoking sensation which he is understanding of. Educated the patient to continue high-protein intake diet which he will be doing. He will continue to offload and elevate as discussed. Patient will follow-up in 1 week. (2) Non-pressure chronic ulcer of left heel and midfoot with necrosis of muscle: CODE(S): L97.423 - Non-pressure chronic ulcer of left heel and midfoot with necrosis of muscle
--- NOTE | 2025-01-21 09:55 | WC ---
PHOTO-LEFT HEEL 01/20/25
[2025-01-27 10:04] VITALS: BP 117/78; PULSE 73; RESP 18; TEMP 36
--- NOTE | 2025-01-27 10:49 | PN.PCM_ITS ---
History of Present Illness Date of Service: 01/27/25 Chief Complaint: Left heel decubitus ulcer History of Wound: 84-year-old white male who was in the hospital for a left hip replacement in August and he developed a left heel from digging into the sheets turning and moving blister that opened. They have only been using [id number] antibiotic ointment on it. Patient history of anemia. Saw their doctor and she referred them to the wound center. Progress of Wound: Stable left heel ulceration. No sign of infection. Subjective Subjective Patient is 84-year-old male presenting to clinic today follow-up evaluation of full-thickness wound to the left heel. Patient has left the amnion skin graft clean dry and intact. He does continue to smoke even though he knows he should quit. Overall he is doing well. He denies any pain and he is offloading as discussed. He denies trauma. Denies constitutional symptoms. No other pedal complaints at this time. Objective Data Objective Data Vital Signs: Vital Signs Temp Pulse Resp BP O2 Del Method 96.8 F L 73 18 117/78 Room Air 01/27/25 10:04 01/27/25 10:04 01/27/25 10:04 01/27/25 10:04 01/27/25 10:04 Oxygen Delivery Method Room Air Lab / Micro Data Micro: Microbiology 12/02/24 10:57 Ulcer, Decubitus - Left Foot Gram Stain - Final 12/02/24 10:57 Ulcer, Decubitus - Left Foot Wound Culture - Preliminary Strep anginosus Enterococcus faecalis 12/02/24 10:57 Ulcer, Decubitus - Left Foot Anaerobic Culture - Preliminary Gram negative yue Gram negative yue#2 Gram negative cocco bacillus Physical Exam Narrative Vascular: DP and PT pulses are palpable. CFT is brisk. No erythema. Skin temperature is within normal limits. Neurological: Light touch intact. Patient does respond to painful stimuli. Dermatological: Full-thickness wound to the left heel with granular base. Negative probe to bone. Wound measures 0.7 x 1.2 x 0.3 cm. Excisional debridement down to including subcutaneous tissue with a number 5 mm dermal curette to the left heel done without incident. Predebridement measurement was 0.5 x 0.8 x 0.1 cm. Postdebridement measurement is 0.7 x 1.2 x 0.3 cm. EpiFix 18 mm disc was applied to the left heel full-thickness ulceration with 100% use. Seventh application. The graft site was free and clear of any infection. The wound/skin graft substitute was dressed with nonadherent bandage secured in place with Steri-Strips followed by bolster dressing as well as a double layer Tubigrip. Musculoskeletal: No pain to palpation full-thickness wound to left heel. No pain with calf pressure. Debridement Note Debridement Note Debridement Free Text: Excisional debridement down to including subcutaneous tissue with a number 5 mm dermal curette to the left heel done without incident. Predebridement measurement was 0.5 x 0.8 x 0.1 cm. Postdebridement measurement is 0.7 x 1.2 x 0.3 cm. EpiFix 18 mm disc was applied to the left heel full-thickness ulceration with 100% use. Seventh application. The graft site was free and clear of any infection. The wound/skin graft substitute was dressed with nonadherent bandage secured in place with Steri-Strips followed by bolster dressing as well as a double layer Tubigrip. 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 (Physician/SENIOR IT PROJECT MANAGER ) ) Arrival Mode Ambulatory Ambulatory, Walker Accompanied by Patient Identification Verified (Name & Yes Yes ) Patient Requires Transmission-Based No Precautions Vital Signs Temperature (97.8 F-99.1 F) 97.5 F L 96.8 F L Temperature Source Temporal Temporal Pulse Rate (60-100) 84 73 Pulse Location Monitor Monitor Respiratory Rate (12-18) 16 18 Respiratory rate source Monitor Observation Oxygen Delivery Method Room Air Blood Pressure (90/60-120/80) 150/89 H 117/78 Blood Pressure Mean (mm Hg) 109 91 Source Monitor Monitor Position Supine Semi-Fowlers Blood Pressure Location Right Arm Right Arm History Since Last Visit- (Skip if this is Patient's initial visit) Have you changed medications since your No No last visit? Any new allergies or adverse reactions No No Had a fall/change in ADL's that may No No increase risk of falls Signs or symptoms of abuse and/or No No neglect since last visit Have you been in the hospital since your No No last visit? Has dressing in place as prescribed Yes Yes Has compression in place as prescribed Yes Yes Has offloadiing in place as prescribed No N/A Experienced any changes in pain level or No No management Left Footwear Regular Shoe Right Footwear Regular Shoe Pain Scale: 0-10 Numeric Is Patient Pain Free? Yes Yes WC - Nurse 1 - General Ulcer Measurement Start: 01/20/25 10:08 Freq: Status: Active Protocol: Activity Type Activity Date Activity User E-sign Co-sign Detail Recorded Client Recorded Date Recorded By Document 01/20/25 10:08 ML [id number] 01/20/25 10:11 ML Document 01/27/25 10:04 KW [id number] 01/27/25 10:12 KW 01/20/25 01/27/25 10:08 10:04 Wound Center Nurse 1 #1 LEFT HEEL -Current Size (cm) - Length 0.5 1 -Current Size (cm) - Width 0.6 0.3 -Current Size (cm) - Depth 0.2 0.4 -Total Square Cm 0.30 0.3 -Date of Last Picture (Recall this 01/27/25 field) -Exudate Amt Medium Medium -Exudate Type Sanguineous Serosanguineous -Wound Margin Distinct, Thickened Outline Attached -Granulation Amt Medium (34-66%) Small (1-33%) -Granulation Quality [place] -Slough/Fibrin Yes -Necrosis Amt Small (1-33%) Large (67-100%) -Necrotic Tissue Type Adherent Slough Adherent Slough -Texture (Tiffanie-wound Skin Appearance) Assessed Assessed -Moisture (Tiffanie-wound Skin Appearance) Assessed -Color (Tiffanie-wound Skin Appearance) Assessed Assessed -Temperature (Tiffanie-wound Skin No Abnormality No Abnormality Appearance) (Pt Warm) (Pt Warm) -Tenderness on Palpation (Tiffanie-wound No No Skin Appearance) -Ulcer Cleansing Soap and Water Soap and Water -Foul Odor after Cleansing No No -Anesthetic Used 5% Lidocaine 5% Lidocaine Gel Gel - Nurse 2 - General Ulcer CM Notes Start: 01/20/25 10:08 Freq: Status: Active Protocol: Activity Type Activity Date Activity User E-sign Co-sign Detail Recorded Client Recorded Date Recorded By Document 01/20/25 10:19 [id number] 01/20/25 10:23 Document 01/27/25 10:25 [id number] 01/27/25 10:29 01/20/25 01/27/25 10:19 10:25 Wound Center Nurse 2 #1 LEFT HEEL -Time 10:20 10:26 -Correct Patient Yes Yes -Correct Side, Site, Position Yes Yes -Correct Procedure Yes Yes -Procedure Performed Yes Yes -Type of Procedure Debridement Debridement -Clinical Debridement Subcutaneous Subcutaneous -Tissue Removed Subcutaneous Subcutaneous -Post Debridement (cm) - Length 0.7 0.7 -Post Debridement (cm) - Width 1.2 1.2 -Post Debridement (cm) - Depth 0.1 0.3 -Total Square (Post) (cm) 0.84 0.84 -Area of Debridement (cm) - Length 0.7 0.7 -Area of Debridement (cm) - Width 1.2 1.2 -Total Square (Area) (cm) 0.84 0.84 -Tunneling No No -Undermining/Tunneling No No -Circular Undermining No No -Wound/Ulcer Outcome Not Healed Not Healed -Ulcer Cleansing Rinsed/ Rinsed/ Irrigated with Irrigated with Saline Saline -Foul Odor after Cleansing No No -Bioengineered Tissue Yes Yes -Type of Bioengineered Tissue Epifix 18mm Epifix 18mm Disc Disc -Expiration Date 09/15/29 11/15/29 -Product Lot Number [id number] -Percent Used 100 100 -Lot number of Saline Used [id number] -Bleeding Controlled with Pressure Pressure -Treatment Response Procedure Procedure Tolerated Well Tolerated Well -Offloading No No -Debridement - Subq, 1st 20sq cm No No -Apply Skin Sub - 1st 25 sq cm - Feet 1 1 -Epifix 18mm Disc Application 1-4 3 3 Pain Scale: 0-10 Numeric Is Patient Pain Free? Yes Yes WC - Nurse 3 - General Ulcer D/C NN Start: 01/20/25 10:08 Freq: Status: Active Protocol: Activity Type Activity Date Activity User E-sign Co-sign Detail Recorded Client Recorded Date Recorded By Document 01/20/25 10:32 MT [id number] 01/20/25 10:33 MT Document 01/27/25 10:38 KW [id number] 01/27/25 10:38 KW 01/20/25 01/27/25 10:32 10:38 Wound Care Center Nurse 3 #1 LEFT HEEL -Foul Odor after Cleansing No -Negative Pressure Wound Therapy N/A -Other Dressing wound veil, hydrogel -Primary Dressing Covered/Secured with Dry Gauze & Dry Gauze & Roll Gauze Roll Gauze, Secured with Tape LLE -Tubular Bandage Single Layer Single Layer -Size of Tubigrip Used Size D Size D -Size D ($) 1 1 Pain Scale: 0-10 Numeric Is Patient Pain Free? Yes Yes - Visit Discharge Discharge Condition Stable Stable Ambulatory Status Ambulatory Ambulatory, Walker Transportation Private Auto Private Auto Medication Reconcilliation completed & No No provided to patient/care provider Clinical Summary of Care Provided Yes Yes Assessment/Plan Assessment/Plan (1) Chronic venous hypertension (idiopathic) with ulcer of right lower extremity: CODE(S): I87.311 - Chronic venous hypertension (idiopathic) with ulcer of right lower extremity; L97.919 - Non-pressure chronic ulcer of unspecified part of right lower leg with unspecified severity PLAN: Patient was examined and evaluated. All findings were discussed with the patient. All questions were answered to the patient's satisfaction. Excisional debridement down to including subcutaneous tissue with a number 5 mm dermal curette to the left heel done without incident. Predebridement measurement was 0.5 x 0.8 x 0.1 cm. Postdebridement measurement is 0.7 x 1.2 x 0.3 cm. EpiFix 18 mm disc was applied to the left heel full-thickness ulceration with 100% use. Seventh application. The graft site was free and clear of any infection. The wound/skin graft substitute was dressed with nonadherent bandage secured in place with Steri-Strips followed by bolster dressing as well as a double layer Tubigrip. Educated the patient about smoking sensation which he is understanding of. Educated the patient to continue high-protein intake diet which he will be doing. He will continue to offload and elevate as discussed. Patient will follow-up in 1 week. (2) Non-pressure chronic ulcer of left heel and midfoot with necrosis of muscle: CODE(S): L97.423 - Non-pressure chronic ulcer of left heel and midfoot with necrosis of muscle
--- NOTE | 2025-01-28 09:53 | WC ---
PHOTO-LEFT HEEL 01/27/25
--- NOTE | 2025-01-28 12:51 | VDLE_ITS ---
Reason For Study Reason For Study: Left heel ulcer RIGHT LEFT CFV is compressible, phasic, and INCOMPETENT for CFV is compressible, spontaneous, phasic, competent, greater than 1.0 second. and demonstrates normal augmentation. FV is compressible, phasic, and INCOMPETENT for FV is compressible, spontaneous, phasic, competent greater than 1.0 second. and demonstrates normal augmentation. POP V is compressible, phasic, and INCOMPETENT for POP V is compressible, spontaneous, phasic, competent greater than 1.0 second. and demonstrates normal augmentation. T/P Trunk is compressible. T/P Trunk is compressible. PTV is compressible. PTV is compressible. RT PerV is compressible. LT PerV is compressible. SFJ is competent and measures 0.68 cm. SFJ is INCOMPETENT and measures 0.58 cm. GSV proximal thigh measures 0.35 x 0.33 cm. GSV proximal thigh measures 0.52 x 0.50 cm. GSV at knee measures 0.26 cm. GSV at knee measures 0.29 x 0.32 cm. GSV is competent throughout. GSV INCOMPETENT throughout for greater than 0.5 SSV mid calf is competent and measures 0.15 x 0.15 seconds. cm. SSV mid calf is competent and measures 0.14 x 0.17 Procedure cm. This is a venous duplex using B-mode, color flow and spectral Doppler. Exam performed in department. Patient was scanned in reverse Trendelenburg position during reflux assessment. A preliminary report was called and/or faxed to [facility]. VL/Venous Duplex US - Jason Extrem Interpretation Summary Deep veins of the lower extremities are bilaterally patent and compressible seg mentally. There is no evidence of deep vein thrombosis on either side. Valvular incompetence is noted in the proximal deep venous system on the right. Valvular competence appears intact within the proximal deep venous system on the left . The great saphenous veins appear bilaterally patent and compressible segmentally. The right sapheno-femoral junc tion is competent . The left sapheno- femoral junction is incompetent . The right great saphenous vein appears segmen tally competent. The left great saphenous vein appears segmentally incompetent. Small saphenous veins are patent and comp etent bilaterally. Ordering Physician: Ulisses Richards Referring Physician: Roberto Wing Performed By: Adrienne Jeffrey RVT
--- NOTE | 2025-01-28 12:51 | ART_ITS ---
Reason For Study Reason For Study: Left heel ulcer Procedure A bilateral lower extremity continuous wave Doppler with analog waveform analysis,segmental pressures,and ankle brachial indexes without exercise. Left Segmental Pressures Left brachial= 149mmHg. Left low thigh = 186mmHg. Left calf = 140mmHg. Left posterior tibial artery = 136mmHg. Left dorsalis pedis artery = 129mmHg. Left digit = 111 mmHg. The left dorsalis pedis waveforms are triphasic. The left posterior tibial artery waveforms are biphasic. Right Segmental Pressures Right brachial= 159mmHg. Right posterior tibial artery = 162mmHg. Right dorsalis pedis artery = 157mmHg. Right digit = 114 mmHg. The right dorsalis pedis waveforms are triphasic. The right posterior tibial artery waveforms are triphasic. Indices The right ankle brachial index by the dorsalis pedis is 0.99. The right ankle brachial index by the posterior tibial artery is 1.02. The right digital-brachial index is 0.72. The left ankle brachial index by the dorsalis pedis is 0.81. The left ankle brachial index by the posterior tibial artery is 0.86. The left digital-brachial index is 0.70. VL/Lower Ext Art Exam w/o Exercis Interpretation Summary Triphasic Doppler waveforms are noted at ankle level on the right. Biphasic and triphasic Doppler waveforms are noted at ankle level on the left. Pulse-volume recordings appear satisfactory at all lev els bilaterally. The resting right ankle- brachial index is normal. The resting left ankle-brachial index moderately dimi nished. Digital-brachial indices are normal bilaterally. Arterial flow appears normal at ankle and digital level on the right. 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 Ordering Physician: Ulisses Richards Referring Physician: Roberto Wing Performed By: Adrienne Jeffrey RVT
[2025-02-03 10:26] VITALS: BP 131/83; PULSE 70; RESP 15; TEMP 36.1
--- NOTE | 2025-02-03 12:52 | PN.PCM_ITS ---
History of Present Illness Date of Service: 02/03/25 Chief Complaint: Left heel decubitus ulcer History of Wound: 84-year-old white male who was in the hospital for a left hip replacement in August and he developed a left heel from digging into the sheets turning and moving blister that opened. They have only been using [id number] antibiotic ointment on it. Patient history of anemia. Saw their doctor and she referred them to the wound center. Progress of Wound: Stable left heel ulceration. No sign of infection. Subjective Subjective Patient is a 84-year-old male presenting to the wound care center today for follow-up evaluation of full-thickness wound amniotic skin graft substitute to left heel. He has been compliant with dressing and left a clean dry and intact. He is offloading as discussed. He is slowing down his smoking. He denies trauma to the area. Denies constitutional symptoms. No other pedal complaints at this time. Objective Data Objective Data Vital Signs: Vital Signs Temp Pulse Resp BP O2 Del Method 97.0 F L 70 15 131/83 H Room Air 02/03/25 10:26 02/03/25 10:26 02/03/25 10:26 02/03/25 10:26 01/27/25 10:04 Oxygen Delivery Method Room Air Lab / Micro Data Micro: Microbiology 12/02/24 10:57 Ulcer, Decubitus - Left Foot Gram Stain - Final 12/02/24 10:57 Ulcer, Decubitus - Left Foot Wound Culture - Preliminary Strep anginosus Enterococcus faecalis 12/02/24 10:57 Ulcer, Decubitus - Left Foot Anaerobic Culture - Preliminary Gram negative yue Gram negative yue#2 Gram negative cocco bacillus Physical Exam Narrative Vascular: DP and PT pulses are palpable. CFT is brisk. No erythema. Skin temperature is within normal limits. Neurological: Light touch intact. Patient does respond to painful stimuli. Dermatological: Full-thickness wound to the left heel with granular base. Negative probe to bone. Wound measures 0.7 x 0.7 x 0.2 cm Excisional debridement down to including subcutaneous tissue with a number 5 mm dermal curette to the left heel done without incident. Predebridement measurement was 0.6 x 0.5 x 0.1 cm. Postdebridement measurement is 0.7 x 0.7 x 0.2 cm. EpiFix 18 mm disc was applied to the left heel full-thickness ulceration with 100% use. Eighth application. The graft site was free and clear of any infection. The wound/skin graft substitute was dressed with nonadherent bandage secured in place with Steri-Strips followed by bolster dressing as well as a double layer Tubigrip. Musculoskeletal: No pain to palpation full-thickness wound to left heel. No pain with calf pressure. Debridement Note Debridement Note Debridement Free Text: Excisional debridement down to including subcutaneous tissue with a number 5 mm dermal curette to the left heel done without incident. Predebridement measurement was 0.6 x 0.5 x 0.1 cm. Postdebridement measurement is 0.7 x 0.7 x 0.2 cm. EpiFix 18 mm disc was applied to the left heel full-thickness ulceration with 100% use. Eighth application. The graft site was free and clear of any infection. The wound/skin graft substitute was dressed with nonadherent bandage secured in place with Steri-Strips followed by bolster dressing as well as a double layer Tubigrip. Post-Debridement Measurements and Additional Note: Post-Debridement Measurements/Treatment - Nurse 1 - General Ulcer Assessment Start: 01/20/25 10:08 Freq: Status: Active Protocol: CHRIS Activity Type Activity Date Activity User E-sign Co-sign Detail Recorded Client Recorded Date Recorded By Document 01/20/25 10:08 ML [id number] 01/20/25 10:11 ML Document 01/27/25 10:04 KW [id number] 01/27/25 10:12 KW Document 02/03/25 10:26 ML [id number] 02/03/25 10:36 ML 01/20/25 01/27/25 02/03/25 10:08 10:04 10:26 - Today's Visit Information Type of service Follow-up Visit Follow-up Visit Follow-up Visit (Physician/BUSINESS PROCESS ANALYST (Physician/BUSINESS PROCESS ANALYST (Physician/BUSINESS PROCESS ANALYST ) ) ) Arrival Mode Ambulatory Ambulatory, Ambulatory Walker Transfer Assistance None Accompanied by Patient Identification Verified (Name & Yes Yes Yes ) Patient Requires Transmission-Based No No Precautions Vital Signs Temperature (97.8 F-99.1 F) 97.5 F L 96.8 F L 97.0 F L Temperature Source Temporal Temporal Temporal Pulse Rate (60-100) 84 73 70 Pulse Location Monitor Monitor Monitor Respiratory Rate (12-18) 16 18 15 Respiratory rate source Monitor Observation Monitor Oxygen Delivery Method Room Air Blood Pressure (90/60-120/80) 150/89 H 117/78 131/83 H Blood Pressure Mean (mm Hg) 109 91 99 Source Monitor Monitor Monitor Position Supine Semi-Fowlers Sitting Blood Pressure Location Right Arm Right Arm Left Arm History Since Last Visit- (Skip if this is Patient's initial visit) Have you changed medications since your No No No last visit? Any new allergies or adverse reactions No No No Had a fall/change in ADL's that may No No No increase risk of falls Signs or symptoms of abuse and/or No No No neglect since last visit Have you been in the hospital since your No No No last visit? Has dressing in place as prescribed Yes Yes Yes Has compression in place as prescribed Yes Yes Yes Has offloadiing in place as prescribed No N/A N/A Experienced any changes in pain level or No No No management Left Footwear Regular Shoe Right Footwear Regular Shoe Pain Scale: 0-10 Numeric Is Patient Pain Free? Yes Yes Yes WC - Nurse 1 - General Ulcer Measurement Start: 01/20/25 10:08 Freq: Status: Active Protocol: Activity Type Activity Date Activity User E-sign Co-sign Detail Recorded Client Recorded Date Recorded By Document 01/20/25 10:08 ML [id number] 01/20/25 10:11 ML Document 01/27/25 10:04 KW [id number] 01/27/25 10:12 KW Document 02/03/25 10:26 ML [id number] 02/03/25 10:36 ML 01/20/25 01/27/25 02/03/25 10:08 10:04 10:26 Wound Center Nurse 1 #1 LEFT HEEL -Current Size (cm) - Length 0.5 1 1 -Current Size (cm) - Width 0.6 0.3 0.5 -Current Size (cm) - Depth 0.2 0.4 0.5 -Total Square Cm 0.30 0.3 0.5 -Date of Last Picture (Recall this 01/27/25 field) -Exudate Amt Medium Medium -Exudate Type Sanguineous Serosanguineous -Wound Margin Distinct, Thickened Distinct, Outline Outline Attached Attached -Granulation Amt Medium (34-66%) Small (1-33%) -Granulation Quality Power -Slough/Fibrin Yes Yes -Necrosis Amt Small (1-33%) Large (67-100%) Small (1-33%) -Necrotic Tissue Type Adherent Slough Adherent Slough Adherent Slough -Texture (Tiffanie-wound Skin Appearance) Assessed Assessed Assessed -Moisture (Tiffanie-wound Skin Appearance) Assessed Assessed -Color (Tiffanie-wound Skin Appearance) Assessed Assessed Assessed -Temperature (Tiffanie-wound Skin No Abnormality No Abnormality No Abnormality Appearance) (Pt Warm) (Pt Warm) (Pt Warm) -Tenderness on Palpation (Tiffanie-wound No No No Skin Appearance) -Ulcer Cleansing Soap and Water Soap and Water Rinsed/ Irrigated with Saline -Foul Odor after Cleansing No No No -Anesthetic Used 5% Lidocaine 5% Lidocaine 5% Lidocaine Gel Gel Gel WC - Nurse 2 - General Ulcer CM Notes Start: 01/20/25 10:08 Freq: Status: Active Protocol: Activity Type Activity Date Activity User E-sign Co-sign Detail Recorded Client Recorded Date Recorded By Document 01/20/25 10:19 [id number] 01/20/25 10:23 Document 01/27/25 10:25 [id number] 01/27/25 10:29 Document 02/03/25 10:58 DS [id number] 02/03/25 11:00 DS 01/20/25 01/27/25 02/03/25 10:19 10:25 10:58 Wound Center Nurse 2 #1 LEFT HEEL -Time 10:20 10:26 10:59 -Correct Patient Yes Yes Yes -Correct Side, Site, Position Yes Yes Yes -Correct Procedure Yes Yes Yes -Procedure Performed Yes Yes Yes -Type of Procedure Debridement Debridement Debridement -Clinical Debridement Subcutaneous Subcutaneous Subcutaneous -Tissue Removed Subcutaneous Subcutaneous Subcutaneous -Post Debridement (cm) - Length 0.7 0.7 -Post Debridement (cm) - Width 1.2 1.2 -Post Debridement (cm) - Depth 0.1 0.3 -Total Square (Post) (cm) 0.84 0.84 -Area of Debridement (cm) - Length 0.7 0.7 -Area of Debridement (cm) - Width 1.2 1.2 -Total Square (Area) (cm) 0.84 0.84 -Tunneling No No No -Undermining/Tunneling No No No -Circular Undermining No No No -Wound/Ulcer Outcome Not Healed Not Healed Not Healed -Ulcer Cleansing Rinsed/ Rinsed/ Rinsed/ Irrigated with Irrigated with Irrigated with Saline Saline Saline -Foul Odor after Cleansing No No No -Bioengineered Tissue Yes Yes Yes -Type of Bioengineered Tissue Epifix 18mm Epifix 18mm Epifix 18mm Disc Disc Disc -Expiration Date 09/15/29 11/15/29 11/15/29 -Product Lot Number [id number] -Percent Used 100 100 100 -Lot number of Saline Used [id number] -Bleeding Controlled with Pressure Pressure Pressure -Treatment Response Procedure Procedure Procedure Tolerated Well Tolerated Well Tolerated Well -Offloading No No -Debridement - Subq, 1st 20sq cm No No No -Apply Skin Sub - 1st 25 sq cm - Feet 1 1 1 -Epifix 18mm Disc Application 1-4 3 3 3 Pain Scale: 0-10 Numeric Is Patient Pain Free? Yes Yes Yes - Nurse 3 - General Ulcer D/C NN Start: 01/20/25 10:08 Freq: Status: Active Protocol: Activity Type Activity Date Activity User E-sign Co-sign Detail Recorded Client Recorded Date Recorded By Document 01/20/25 10:32 [place] [id number] 01/20/25 10:33 [place] Document 01/27/25 10:38 KW [id number] 01/27/25 10:38 KW Document 02/03/25 11:03 KW [id number] 02/03/25 11:04 KW 01/20/25 01/27/25 02/03/25 10:32 10:38 11:03 Wound Care Center Nurse 3 #1 LEFT HEEL -Foul Odor after Cleansing No -Negative Pressure Wound Therapy N/A -Other Dressing wound veil, hydrogel -Primary Dressing Covered/Secured with Dry Gauze & Dry Gauze & Dry Gauze & Roll Gauze Roll Gauze, Roll Gauze, Secured with Secured with Tape Tape LLE -Tubular Bandage Single Layer Single Layer Single Layer -Size of Tubigrip Used Size D Size D Size D -Size D ($) 1 1 1 Pain Scale: 0-10 Numeric Is Patient Pain Free? Yes Yes Yes - Visit Discharge Discharge Condition Stable Stable Stable Ambulatory Status Ambulatory Ambulatory, Ambulatory, Walker Walker Transportation Private Auto Private Auto Private Auto Medication Reconcilliation completed & No No No provided to patient/care provider Clinical Summary of Care Provided Yes Yes Yes Assessment/Plan Assessment/Plan (1) Chronic venous hypertension (idiopathic) with ulcer of right lower extremity: CODE(S): I87.311 - Chronic venous hypertension (idiopathic) with ulcer of right lower extremity; L97.919 - Non-pressure chronic ulcer of unspecified part of right lower leg with unspecified severity PLAN: Patient was examined and evaluated. All findings were discussed with the patient. All questions were answered to the patient's satisfaction. Excisional debridement down to including subcutaneous tissue with a number 5 mm dermal curette to the left heel done without incident. Predebridement measurement was 0.6 x 0.5 x 0.1 cm. Postdebridement measurement is 0.7 x 0.7 x 0.2 cm. EpiFix 18 mm disc was applied to the left heel full-thickness ulceration with 100% use. Eighth application. The graft site was free and clear of any infection. The wound/skin graft substitute was dressed with nonadherent bandage secured in place with Steri-Strips followed by bolster dressing as well as a double layer Tubigrip. Educated the patient about smoking sensation which he is understanding of. Educated the patient to continue high-protein intake diet which he will be doing. He will continue to offload and elevate as discussed. Patient will follow-up in 1 week. (2) Non-pressure chronic ulcer of left heel and midfoot with necrosis of muscle: CODE(S): L97.423 - Non-pressure chronic ulcer of left heel and midfoot with necrosis of muscle
--- NOTE | 2025-02-03 13:58 | WC ---
PHOTO-LEFT DORSAL FOOT 02/03/25
--- NOTE | 2025-02-03 14:19 | WC ---
PHOTO-LEFT HEEL 02/03/25
[2025-02-10 10:09] VITALS: RESP 18; TEMP 35.8
--- NOTE | 2025-02-10 12:41 | PCM.WC.PN ---
History of Present Illness Date of Service: 02/10/25 Chief Complaint: Left heel decubitus ulcer History of Wound: 84-year-old white male who was in the hospital for a left hip replacement in August and he developed a left heel from digging into the sheets turning and moving blister that opened. They have only been using [id number] antibiotic ointment on it. Patient history of anemia. Saw their doctor and she referred them to the wound center. Progress of Wound: Stable left heel ulceration. No sign of infection. Subjective Subjective Patient is 84-year-old male presenting to clinic today for follow-up evaluation of full-thickness wound to left heel. He has left the dressing clean dry and intact. Patient states that he has smoked last during his last visit. He is offloading as discussed. He denies any pain to left lower extremity. He does admit to striking the proximal left leg with a car door and has been treating it with triple antibiotic and a Band-Aid. Denies constitutional symptoms. No other pedal complaints at this time. Objective Data Objective Data Vital Signs: Vital Signs Temp Pulse Resp BP O2 Del Method 96.4 F L 70 18 131/83 H Room Air 02/10/25 10:09 02/03/25 10:26 02/10/25 10:09 02/03/25 10:26 02/10/25 10:09 Oxygen Delivery Method Room Air Physical Exam Narrative Vascular: DP and PT pulses are palpable. CFT is brisk. No erythema. Skin temperature is within normal limits. Neurological: Light touch intact. Patient does respond to painful stimuli. Dermatological: Full-thickness wound to the left heel with granular base. Negative probe to bone. Wound measures 0.6 x 1.1 x 0.5 cm. Proximal leg full-thickness wound measures 2.2 x 1.5 x 0.1 cm. Blanchable erythema with no sign of infection. Wound base is granular. Excisional debridement down to including subcutaneous tissue with a number 5 mm dermal curette to the left heel done without incident. Predebridement measurement was 0.5 x 0.9 x 0.3 cm. Postdebridement measurement is 0.6 x 1.1 x 0.5 cm. EpiFix 18 mm disc was applied to the left heel full-thickness ulceration with 100% use. Ninth application. The graft site was free and clear of any infection. The wound/skin graft substitute was dressed with nonadherent bandage secured in place with Steri-Strips followed by bolster dressing as well as a double layer Tubigrip. Excisional debridement down to including subcutaneous tissue with a number 5 mm dermal curette to the left leg proximal wound done without incident. Predebridement measurement was 2.0 x 1.3 x 0.1 cm. Postdebridement measurement is 2.2 x 1.5 x 0.1 cm. Musculoskeletal: No pain to palpation full-thickness wound to left heel or leg. No pain with calf pressure. Debridement Note Debridement Note Debridement Free Text: Excisional debridement down to including subcutaneous tissue with a number 5 mm dermal curette to the left heel done without incident. Predebridement measurement was 0.5 x 0.9 x 0.3 cm. Postdebridement measurement is 0.6 x 1.1 x 0.5 cm. EpiFix 18 mm disc was applied to the left heel full-thickness ulceration with 100% use. Ninth application. The graft site was free and clear of any infection. The wound/skin graft substitute was dressed with nonadherent bandage secured in place with Steri-Strips followed by bolster dressing as well as a double layer Tubigrip. Excisional debridement down to including subcutaneous tissue with a number 5 mm dermal curette to the left leg proximal wound done without incident. Predebridement measurement was 2.0 x 1.3 x 0.1 cm. Postdebridement measurement is 2.2 x 1.5 x 0.1 cm. Post-Debridement Measurements and Additional Note: Post-Debridement Measurements/Treatment - Nurse 1 - General Ulcer Assessment Start: 01/20/25 10:08 Freq: Status: Active Protocol: [email or web address].[email or web address] Activity Type Activity Date Activity User E-sign Co-sign Detail Recorded Client Recorded Date Recorded By Document 01/20/25 10:08 ML [id number] 01/20/25 10:11 ML Document 01/27/25 10:04 KW [id number] 01/27/25 10:12 KW Document 02/03/25 10:26 ML [id number] 02/03/25 10:36 ML Document 02/10/25 10:09 KW [id number] 02/10/25 10:17 KW 01/20/25 01/27/2525 10:08 10:04 10:[address] [facility] Today's Visit Information Type of service Follow-up Visit Follow-up Visit Follow-up Visit (Physician/DAY LIGHT RELIEF OPERATOR (Physician/DAY LIGHT RELIEF OPERATOR (Physician/DAY LIGHT RELIEF OPERATOR ) ) ) Arrival Mode Ambulatory Ambulatory, Ambulatory Walker Transfer Assistance None Accompanied by Patient Identification Verified (Name & Yes Yes Yes ) Patient Requires Transmission-Based No No Precautions Vital Signs Temperature (97.8 F-99.1 F) 97.5 F L 96.8 F L 97.0 F L Temperature Source Temporal Temporal Temporal Pulse Rate (60-100) 84 73 70 Pulse Location Monitor Monitor Monitor Respiratory Rate (12-18) 16 18 15 Respiratory rate source Monitor Observation Monitor Oxygen Delivery Method Room Air Blood Pressure (90/60-120/80) 150/89 H 117/78 131/83 H Blood Pressure Mean (mm Hg) 109 91 99 Source Monitor Monitor Monitor Position Supine Semi-Fowlers Sitting Blood Pressure Location Right Arm Right Arm Left Arm History Since Last Visit- (Skip if this is Patient's initial visit) Have you changed medications since your No No No last visit? Any new allergies or adverse reactions No No No Had a fall/change in ADL's that may No No No increase risk of falls Signs or symptoms of abuse and/or No No No neglect since last visit Have you been in the hospital since your No No No last visit? Has dressing in place as prescribed Yes Yes Yes Has compression in place as prescribed Yes Yes Yes Has offloadiing in place as prescribed No N/A N/A Experienced any changes in pain level or No No No management Left Footwear Regular Shoe Right Footwear Regular Shoe Pain Scale: 0-10 Numeric Is Patient Pain Free? Yes Yes Yes 02/10/25 10:[address] [facility] Today's Visit Information Type of service Follow-up Visit (Physician/DAY LIGHT RELIEF OPERATOR ) Arrival Mode Ambulatory, Walker Transfer Assistance Accompanied by Patient Identification Verified (Name & Yes ) Patient Requires Transmission-Based Precautions Vital Signs Temperature (97.8 F-99.1 F) 96.4 F L Temperature Source Temporal Pulse Rate (60-100) Pulse Location Monitor Respiratory Rate (12-18) 18 Respiratory rate source Observation Oxygen Delivery Method Room Air Blood Pressure (90/60-120/80) Blood Pressure Mean (mm Hg) Source Monitor Position Semi-Fowlers Blood Pressure Location Right Arm History Since Last Visit- (Skip if this is Patient's initial visit) Have you changed medications since your No last visit? Any new allergies or adverse reactions No Had a fall/change in ADL's that may No increase risk of falls Signs or symptoms of abuse and/or No neglect since last visit Have you been in the hospital since your No last visit? Has dressing in place as prescribed Yes Has compression in place as prescribed Yes Has offloadiing in place as prescribed N/A Experienced any changes in pain level or No management Left Footwear Regular Shoe Right Footwear Regular Shoe Pain Scale: 0-10 Numeric Is Patient Pain Free? Yes WC - Nurse 1 - General Ulcer Measurement Start: 01/20/25 10:08 Freq: Status: Active Protocol: Activity Type Activity Date Activity User E-sign Co-sign Detail Recorded Client Recorded Date Recorded By Document 01/20/25 10:08 ML [id number] 01/20/25 10:11 ML Document 01/27/25 10:04 KW [id number] 01/27/25 10:12 KW Document 02/03/25 10:26 ML [id number] 02/03/25 10:36 ML Document 02/10/25 10:09 KW [id number] 02/10/25 10:17 KW 01/20/25 01/27/25 02/03/25 10:08 10:04 10:26 Wound Center Nurse 1 #1 LEFT HEEL -Current Size (cm) - Length 0.5 1 1 -Current Size (cm) - Width 0.6 0.3 0.5 -Current Size (cm) - Depth 0.2 0.4 0.5 -Total Square Cm 0.30 0.3 0.5 -Date of Last Picture (Recall this 01/27/25 field) -Exudate Amt Medium Medium -Exudate Type Sanguineous Serosanguineous -Wound Margin Distinct, Thickened Distinct, Outline Outline Attached Attached -Granulation Amt Medium (34-66%) Small (1-33%) -Granulation Quality [place] -Slough/Fibrin Yes Yes -Necrosis Amt Small (1-33%) Large (67-100%) Small (1-33%) -Necrotic Tissue Type Adherent Slough Adherent Slough Adherent Slough -Texture (Tiffanie-wound Skin Appearance) Assessed Assessed Assessed -Moisture (Tiffanie-wound Skin Appearance) Assessed Assessed -Color ([place]iffanie-wound Skin Appearance) Assessed Assessed Assessed -Temperature ([place]-wound Skin No Abnormality No Abnormality No Abnormality Appearance) (Pt Warm) (Pt Warm) (Pt Warm) -Tenderness on Palpation ([place]iffanie-wound No No No Skin Appearance) -Ulcer Cleansing Soap and Water Soap and Water Rinsed/ Irrigated with Saline -Foul Odor after Cleansing No No No -Anesthetic Used 5% Lidocaine 5% Lidocaine 5% Lidocaine Gel Gel Gel 02/10/25 10:09 Wound Center Nurse 1 #1 LEFT HEEL -Current Size (cm) - Length 0.5 -Current Size (cm) - Width 1 -Current Size (cm) - Depth 0.2 -Total Square Cm 0.5 -Date of Last Picture (Recall this 02/10/25 field) -Exudate Amt Medium -Exudate Type Serosanguineous -Wound Margin Thickened -Granulation Amt Small (1-33%) -Granulation Quality [place] -Slough/Fibrin -Necrosis Amt Medium (34-66%) -Necrotic Tissue Type Adherent Slough -Texture (Tiffanie-wound Skin Appearance) Assessed -Moisture (Tiffanie-wound Skin Appearance) Assessed, Maceration -Color ([place]iffanie-wound Skin Appearance) Assessed -Temperature ([place]iff[place]-wound Skin No Abnormality Appearance) (Pt Warm) -Tenderness on Palpation ([place]iffanie-wound No Skin Appearance) -Ulcer Cleansing Soap and Water -Foul Odor after Cleansing No -Anesthetic Used 5% Lidocaine Gel WC - Nurse 2 - General Ulcer CM Notes Start: 01/20/25 10:08 Freq: Status: Active Protocol: Activity Type Activity Date Activity User E-sign Co-sign Detail Recorded Client Recorded Date Recorded By Document 01/20/25 10:19 [id number] 01/20/25 10:23 JF Document 01/27/25 10:25 JF [id number] 01/27/25 10:29 JF Document 02/03/25 10:58 DS [id number] 02/03/25 11:00 DS Edit Result 02/03/25 10:58 DS (1) 1 02/03/25 14:38 DS Document 02/10/25 10:38 JF [id number] 02/10/25 10:45 JF (1) #1 LEFT HEEL - Post Debridement (cm) - Length => 0.7 - Post Debridement (cm) - Width => 0.7 - Post Debridement (cm) - Depth => 0.2 - Total Square (Post) (cm) => 0.49 - Area of Debridement (cm) - Length => 0.7 - Area of Debridement (cm) - Width => 0.7 - Total Square (Area) (cm) => 0.49 01/20/25 01/27/25 02/03/25 10:19 10:25 10:58 Wound Center Nurse 2 2-LEFT LEG -Time -Correct Patient -Correct Side, Site, Position -Correct Procedure -Procedure Performed -Type of Procedure -Clinical Debridement -Tissue Removed -Post Debridement (cm) - Length -Post Debridement (cm) - Width -Post Debridement (cm) - Depth -Total Square (Post) (cm) -Area of Debridement (cm) - Length -Area of Debridement (cm) - Width -Total Square (Area) (cm) -Tunneling -Undermining/Tunneling -Circular Undermining -Wound/Ulcer Outcome -Ulcer Cleansing -Foul Odor after Cleansing -Bioengineered Tissue -Bleeding Controlled with -Treatment Response -Offloading -Debridement - Subq, 1st 20sq cm #1 LEFT HEEL -Time 10: 10:26 10:59 -Correct Patient Yes Yes Yes -Correct Side, Site, Position Yes Yes Yes -Correct Procedure Yes Yes Yes -Procedure Performed Yes Yes Yes -Type of Procedure Debridement Debridement Debridement -Clinical Debridement Subcutaneous Subcutaneous Subcutaneous -Tissue Removed Subcutaneous Subcutaneous Subcutaneous -Post Debridement (cm) - Length 0.7 0.7 0.7 -Post Debridement (cm) - Width 1.2 1.2 0.7 -Post Debridement (cm) - Depth 0.1 0.3 0.2 -Total Square (Post) (cm) 0.84 0.84 0.49 -Area of Debridement (cm) - Length 0.7 0.7 0.7 -Area of Debridement (cm) - Width 1.2 1.2 0.7 -Total Square (Area) (cm) 0.84 0.84 0.49 -Tunneling No No No -Undermining/Tunneling No No No -Circular Undermining No No No -Wound/Ulcer Outcome Not Healed Not Healed Not Healed -Ulcer Cleansing Rinsed/ Rinsed/ Rinsed/ Irrigated with Irrigated with Irrigated with Saline Saline Saline -Foul Odor after Cleansing No No No -Bioengineered Tissue Yes Yes Yes -Type of Bioengineered Tissue Epifix 18mm Epifix 18mm Epifix 18mm Disc Disc Disc -Expiration Date 09/15/29 11/15/29 11/15/29 -Product Lot Number [id number] -Percent Used 100 100 100 -Lot number of Saline Used [id number] -Bleeding Controlled with Pressure Pressure Pressure -Treatment Response Procedure Procedure Procedure Tolerated Well Tolerated Well Tolerated Well -Offloading No No -Debridement - Subq, 1st 20sq cm No No No -Apply Skin Sub - 1st 25 sq cm - Feet 1 1 1 -Epifix 18mm Disc Application 1-4 3 3 3 Pain Scale: 0-10 Numeric Is Patient Pain Free? Yes Yes Yes 02/10/25 10:38 Wound Center Nurse 2 2-LEFT LEG -Time 10:45 -Correct Patient Yes -Correct Side, Site, Position Yes -Correct Procedure Yes -Procedure Performed Yes -Type of Procedure Debridement -Clinical Debridement Subcutaneous -Tissue Removed Subcutaneous -Post Debridement (cm) - Length 2.2 -Post Debridement (cm) - Width 1.5 -Post Debridement (cm) - Depth 0.1 -Total Square (Post) (cm) 3.30 -Area of Debridement (cm) - Length 2.2 -Area of Debridement (cm) - Width 1.5 -Total Square (Area) (cm) 3.30 -Tunneling No -Undermining/Tunneling No -Circular Undermining No -Wound/Ulcer Outcome Not Healed -Ulcer Cleansing Rinsed/ Irrigated with Saline -Foul Odor after Cleansing No -Bioengineered Tissue No -Bleeding Controlled with Pressure -Treatment Response Procedure Tolerated Well -Offloading No -Debridement - Subq, 1st 20sq cm Yes #1 LEFT HEEL -Time 10:38 -Correct Patient Yes -Correct Side, Site, Position Yes -Correct Procedure Yes -Procedure Performed Yes -Type of Procedure Debridement -Clinical Debridement Subcutaneous -Tissue Removed Subcutaneous -Post Debridement (cm) - Length 0.6 -Post Debridement (cm) - Width 1.1 -Post Debridement (cm) - Depth 0.5 -Total Square (Post) (cm) 0.66 -Area of Debridement (cm) - Length 0.6 -Area of Debridement (cm) - Width 1.1 -Total Square (Area) (cm) 0.66 -Tunneling No -Undermining/Tunneling No -Circular Undermining No -Wound/Ulcer Outcome Not Healed -Ulcer Cleansing Rinsed/ Irrigated with Saline -Foul Odor after Cleansing No -Bioengineered Tissue Yes -Type of Bioengineered Tissue Epifix 18mm Disc -Expiration Date 11/15/29 -Product Lot Number [id number] -Percent Used 100 -Lot number of Saline Used [id number] -Bleeding Controlled with Pressure -Treatment Response Procedure Tolerated Well -Offloading No -Debridement - Subq, 1st 20sq cm No -Apply Skin Sub - 1st 25 sq cm - Feet 1 -Epifix 18mm Disc Application 1-4 3 Pain Scale: 0-10 Numeric Is Patient Pain Free? Yes - Nurse 3 - General Ulcer D/C NN Start: 01/20/25 10:08 Freq: Status: Active Protocol: Activity Type Activity Date Activity User E-sign Co-sign Detail Recorded Client Recorded Date Recorded By Document 01/20/25 10:32 MT [id number] 01/20/25 10:33 MT Document 01/27/25 10:38 KW [id number] 01/27/25 10:38 KW Document 02/03/25 11:03 KW [id number] 02/03/25 11:04 KW Document 02/10/25 10:57 GM [id number] 02/10/25 10:58 GM 01/20/25 01/27/25 02/03/25 10:32 10:38 11:03 Wound Care Center Nurse 3 2-LEFT LEG -Ulcer Cleansing -Foul Odor after Cleansing -Primary Dressing Covered/Secured with #1 LEFT HEEL -Ulcer Cleansing -Foul Odor after Cleansing No -Negative Pressure Wound Therapy N/A -Other Dressing wound veil, hydrogel -Primary Dressing Covered/Secured with Dry Gauze & Dry Gauze & Dry Gauze & Roll Gauze Roll Gauze, Roll Gauze, Secured with Secured with Tape Tape LLE -Tubular Bandage Single Layer Single Layer Single Layer -Size of Tubigrip Used Size D Size D Size D -Size D ($) 1 1 1 Pain Scale: 0-10 Numeric Is Patient Pain Free? Yes Yes Yes - Visit Discharge Discharge Condition Stable Stable Stable Ambulatory Status Ambulatory Ambulatory, Ambulatory, Walker Walker Transportation Private Auto Private Auto Private Auto Medication Reconcilliation completed & No No No provided to patient/care provider Clinical Summary of Care Provided Yes Yes Yes 02/10/25 10:57 Wound Care Center Nurse 3 2-LEFT LEG -Ulcer Cleansing Not Cleansed -Foul Odor after Cleansing No -Primary Dressing Covered/Secured with Dry Gauze,Dry Gauze & Roll Gauze,Secured with Tape #1 LEFT HEEL -Ulcer Cleansing Not Cleansed -Foul Odor after Cleansing No -Negative Pressure Wound Therapy -Other Dressing -Primary Dressing Covered/Secured with Dry Gauze,Dry Gauze & Roll Gauze,Secured with Tape LLE -Tubular Bandage Single Layer -Size of Tubigrip Used Size D -Size D ($) 1 Pain Scale: 0-10 Numeric Is Patient Pain Free? Yes WC - Visit Discharge Discharge Condition Stable Ambulatory Status Ambulatory, Walker Transportation Private Auto Medication Reconcilliation completed & provided to patient/care provider Clinical Summary of Care Provided Assessment/Plan Assessment/Plan (1) Chronic venous hypertension (idiopathic) with ulcer of right lower extremity: CODE(S): I87.311 - Chronic venous hypertension (idiopathic) with ulcer of right lower extremity; L97.919 - Non-pressure chronic ulcer of unspecified part of right lower leg with unspecified severity PLAN: Patient was examined and evaluated. All findings were discussed with the patient. All questions were answered to the patient's satisfaction. Excisional debridement down to including subcutaneous tissue with a number 5 mm dermal curette to the left heel done without incident. Predebridement measurement was 0.6 x 0.5 x 0.1 cm. Postdebridement measurement is 0.7 x 0.7 x 0.2 cm. EpiFix 18 mm disc was applied to the left heel full-thickness ulceration with 100% use. Eighth application. The graft site was free and clear of any infection. The wound/skin graft substitute was dressed with nonadherent bandage secured in place with Steri-Strips followed by bolster dressing as well as a double layer Tubigrip. Educated the patient about smoking sensation which he is understanding of. Educated the patient to continue high-protein intake diet which he will be doing. He will continue to offload and elevate as discussed. Patient will follow-up in 1 week. (2) Non-pressure chronic ulcer of left heel and midfoot with necrosis of muscle: CODE(S): L97.423 - Non-pressure chronic ulcer of left heel and midfoot with necrosis of muscle (3) Non-pressure chronic ulcer of other part of left lower leg with fat layer exposed: CODE(S): L97.822 - Non-pressure chronic ulcer of other part of left lower leg with fat layer exposed
--- NOTE | 2025-02-10 13:42 | WC ---
PHOTO-LEFT HEEL 02/10/25
== END 2025-02-14 23:59 | disposition home or self-care (01) ==
LOC: WC 10:00
PROVIDERS: PCP Internal Medicine; Referring Provider Physician Assistant; Visit Provider Podiatrist Foot & Ankle Surgery
DX: L97.423 Non-pressure chronic ulcer of left heel and midfoot with necrosis of muscle (principal); I87.311 Chronic venous hypertension (idiopathic) with ulcer of right lower extremity; L97.919 Non-pressure chronic ulcer of unspecified part of right lower leg with unspecified severity; Z79.899 Other long term (current) drug therapy; Z96.642 Presence of left artificial hip joint
CPT/HCPCS: 11042; 15275; 93923; 93970; Q4186

== ENCOUNTER 2025-03-03 09:15 | Outpatient (RCR) | payer MEDICARE, SELFPAY ==
[2025-02-17 10:12] VITALS: BP 125/77; PULSE 71; RESP 18; TEMP 36
--- NOTE | 2025-02-17 12:39 | PN.PCM_ITS ---
History of Present Illness Date of Service: 02/17/25 Chief Complaint: Left heel decubitus ulcer History of Wound: 84-year-old white male who was in the hospital for a left hip replacement in August and he developed a left heel from digging into the sheets turning and moving blister that opened. They have only been using [id number] antibiotic ointment on it. Patient history of anemia. Saw their doctor and she referred them to the wound center. Progress of Wound: Stable left heel wound and left leg wound. Subjective Subjective Patient is 84-year-old male presenting to wound care center today follow-up evaluation of full-thickness wound to left heel with amniotic skin graft substitute as well as full-thickness wound secondary to trauma to the proximal left leg. Patient has been compliant with dressing changes to the proximal leg. He has left the heel dressing clean dry and intact. He has reduced smoking and increased protein intake. He is elevating and offloading as discussed. He denies any new onset of trauma. Denies constitutional symptoms. No other pedal complaints at this time. Objective Data Objective Data Vital Signs: Vital Signs Temp Pulse Resp BP O2 Del Method 96.8 F L 71 18 125/77 H Room Air 02/17/25 10:12 02/17/25 10:12 02/17/25 10:12 02/17/25 10:12 02/17/25 10:12 Oxygen Delivery Method Room Air Physical Exam Narrative Vascular: DP and PT pulses are palpable. CFT is brisk. No erythema. Skin temperature is within normal limits. Neurological: Light touch intact. Patient does respond to painful stimuli. Dermatological: Full-thickness wound to the left heel with granular base. Negative probe to bone. Wound measures 0.5 x 0.8 x 0.2 cm. Proximal leg full- thickness wound measures 2.0 x 1.2 x 0.1 cm. No erythema or sign of infection. Excisional debridement down to including subcutaneous tissue with a number 5 mm dermal curette to the left heel done without incident. Predebridement measurement was 0.3 x 0.5 x 0.1 cm. Postdebridement measurement is 0.5 x 0.8 x 0.2 cm. EpiFix 18 mm disc was applied to the left heel full-thickness ulceration with 100% use. 10th application. The graft site was free and clear of any infection. The wound/skin graft substitute was dressed with nonadherent bandage secured in place with Steri-Strips followed by bolster dressing as well as a double layer Tubigrip. Excisional debridement down to including subcutaneous tissue with a number 5 mm dermal curette to the left leg proximal wound done without incident. Predebridement measurement was 1.8 x 1.0 x 0.1 cm. Postdebridement measurement is 2.0 x 1.2 x 0.1 cm. Musculoskeletal: No pain to palpation full-thickness wound to left heel or leg. No pain with calf pressure. Debridement Note Debridement Note Debridement Free Text: Excisional debridement down to including subcutaneous tissue with a number 5 mm dermal curette to the left heel done without incident. Predebridement measurement was 0.3 x 0.5 x 0.1 cm. Postdebridement measurement is 0.5 x 0.8 x 0.2 cm. EpiFix 18 mm disc was applied to the left heel full-thickness ulceration with 100% use. 10th application. The graft site was free and clear of any infection. The wound/skin graft substitute was dressed with nonadherent bandage secured in place with Steri-Strips followed by bolster dressing as well as a double layer Tubigrip. Excisional debridement down to including subcutaneous tissue with a number 5 mm dermal curette to the left leg proximal wound done without incident. Predebridement measurement was 1.8 x 1.0 x 0.1 cm. Postdebridement measurement is 2.0 x 1.2 x 0.1 cm. Post-Debridement Measurements and Additional Note: Post-Debridement Measurements/Treatment [facility] Nurse 1 - General Ulcer Assessment Start: 02/17/25 10:12 Freq: Status: Active Protocol: WC.LOWEXT Activity Type Activity Date Activity User E-sign Co-sign Detail Recorded Client Recorded Date Recorded By Document 02/17/25 10:12 [id number] 02/17/25 10:18 02/17/25 10:12 - Today's Visit Information Type of service Follow-up Visit (Physician/ROVING SIZER ) Arrival Mode Ambulatory, Walker Patient Identification Verified (Name & Yes ) Vital Signs Temperature (97.8 F-99.1 F) 96.8 F L Temperature Source Temporal Pulse Rate (60-100) 71 Pulse Location Monitor Respiratory Rate (12-18) 18 Respiratory rate source Observation Oxygen Delivery Method Room Air Blood Pressure (90/60-120/80) 125/77 H Blood Pressure Mean (mm Hg) 93 Source Monitor Position Semi-Fowlers Blood Pressure Location Left Arm History Since Last Visit- (Skip if this is Patient's initial visit) Have you changed medications since your No last visit? Any new allergies or adverse reactions No Had a fall/change in ADL's that may No increase risk of falls Signs or symptoms of abuse and/or No neglect since last visit Have you been in the hospital since your No last visit? Has dressing in place as prescribed Yes Has compression in place as prescribed Yes Has offloadiing in place as prescribed N/A Experienced any changes in pain level or No management Left Footwear Regular Shoe Right Footwear Regular Shoe Pain Scale: 0-10 Numeric Is Patient Pain Free? Yes WC - Nurse 1 - General Ulcer Measurement Start: 02/17/25 10:12 Freq: Status: Active Protocol: Activity Type Activity Date Activity User E-sign Co-sign Detail Recorded Client Recorded Date Recorded By Document 02/17/25 10:12 LAUREANO [id number] 02/17/25 10:18 KW 02/17/25 10:12 Wound Center Nurse 1 2-LEFT LEG -Current Size (cm) - Length 0.3 -Current Size (cm) - Width 0.2 -Current Size (cm) - Depth 0.1 -Total Square Cm 0.06 -Date of Last Picture (Recall this 02/17/25 field) -Exudate Amt None Present -Granulation Amt Small (1-33%) -Granulation Quality Pale,[place] -Texture (Tiffanie-wound Skin Appearance) Assessed -Moisture (Tiffanie-wound Skin Appearance) Assessed -Color (Tiffanie-wound Skin Appearance) Assessed -Temperature (Tiffanie-wound Skin No Abnormality Appearance) (Pt Warm) -Tenderness on Palpation (Tiffanie-wound No Skin Appearance) -Ulcer Cleansing Soap and Water -Foul Odor after Cleansing No -Anesthetic Used 5% Lidocaine Gel WC - Nurse 2 - General Ulcer CM Notes Start: 02/17/25 10:12 Freq: Status: Active Protocol: Activity Type Activity Date Activity User E-sign Co-sign Detail Recorded Client Recorded Date Recorded By Document 02/17/25 10:40 JF [id number] 02/17/25 10:46 MARIA DE JESUS 02/17/25 10:40 Wound Center Nurse 2 -Time 10:45 -Correct Patient Yes -Correct Side, Site, Position Yes -Correct Procedure Yes -Procedure Performed Yes -Type of Procedure Debridement -Clinical Debridement Subcutaneous -Tissue Removed Subcutaneous -Post Debridement (cm) - Length 2 -Post Debridement (cm) - Width 1.2 -Post Debridement (cm) - Depth 0.1 -Total Square (Post) (cm) 2.4 -Area of Debridement (cm) - Length 2 -Area of Debridement (cm) - Width 1.2 -Total Square (Area) (cm) 2.4 -Tunneling No -Undermining/Tunneling No -Circular Undermining No -Wound/Ulcer Outcome Not Healed -Ulcer Cleansing Rinsed/ Irrigated with Saline -Foul Odor after Cleansing No -Bioengineered Tissue No -Bleeding Controlled with Pressure -Treatment Response Procedure Tolerated Well -Offloading No -Debridement - Subq, 1st 20sq cm Yes #1 LEFT HEEL -Time 10:42 -Correct Patient Yes -Correct Side, Site, Position Yes -Correct Procedure Yes -Procedure Performed Yes -Type of Procedure Debridement -Clinical Debridement Subcutaneous -Tissue Removed Subcutaneous -Post Debridement (cm) - Length 0.5 -Post Debridement (cm) - Width 0.8 -Post Debridement (cm) - Depth 0.2 -Total Square (Post) (cm) 0.40 -Area of Debridement (cm) - Length 0.5 -Area of Debridement (cm) - Width 0.8 -Total Square (Area) (cm) 0.40 -Tunneling No -Undermining/Tunneling No -Circular Undermining No -Wound/Ulcer Outcome Not Healed -Ulcer Cleansing Rinsed/ Irrigated with Saline -Foul Odor after Cleansing No -Bioengineered Tissue Yes -Type of Bioengineered Tissue Epifix 18mm Disc -Expiration Date 11/15/29 -Product Lot Number [id number] -Percent Used 100 -Lot number of Saline Used [id number] -Bleeding Controlled with Pressure -Treatment Response Procedure Tolerated Well -Offloading No -Debridement - Subq, 1st 20sq cm No -Apply Skin Sub - 1st 25 sq cm - Feet 1 -Epifix 18mm Disc Application 1-4 3 Pain Scale: 0-10 Numeric Is Patient Pain Free? Yes WC - Nurse 3 - General Ulcer D/C NN Start: 02/17/25 10:12 Freq: Status: Active Protocol: Activity Type Activity Date Activity User E-sign Co-sign Detail Recorded Client Recorded Date Recorded By Document 02/17/25 11:00 [id number] 02/17/25 11:01 02/17/25 11:00 Wound Care Center Nurse 3 2-LEFT LEG -Ulcer Cleansing Not Cleansed -Foul Odor after Cleansing No -Primary Dressing Applied Silicone Border Foam 4x4 -Other Covering ANTIBIOTIC OINTMENT -Silicone Border Foam 4x4 1 #1 LEFT HEEL -Ulcer Cleansing Not Cleansed -Foul Odor after Cleansing No -Primary Dressing Covered/Secured with Dry Gauze & Roll Gauze, Secured with Tape LLE -Lotion applied to leg before No compression wrap -Tubular Bandage Single Layer -Size of Tubigrip Used Size D -Size D ($) 1 -Stockings No Pain Scale: 0-10 Numeric Is Patient Pain Free? Yes WC - Visit Discharge Discharge Condition Stable Ambulatory Status Ambulatory, Walker Transportation Private Auto Assessment/Plan Assessment/Plan (1) Chronic venous hypertension (idiopathic) with ulcer of right lower extremity: CODE(S): I87.311 - Chronic venous hypertension (idiopathic) with ulcer of right lower extremity; L97.919 - Non-pressure chronic ulcer of unspecified part of right lower leg with unspecified severity PLAN: Patient was examined and evaluated. All findings were discussed with the patient. All questions were answered to the patient's satisfaction. Excisional debridement down to including subcutaneous tissue with a number 5 mm dermal curette to the left heel done without incident. Predebridement measurement was 0.3 x 0.5 x 0.1 cm. Postdebridement measurement is 0.5 x 0.8 x 0.2 cm. EpiFix 18 mm disc was applied to the left heel full-thickness ulceration with 100% use. 10th application. The graft site was free and clear of any infection. The wound/skin graft substitute was dressed with nonadherent bandage secured in place with Steri-Strips followed by bolster dressing as well as a double layer Tubigrip. Excisional debridement down to including subcutaneous tissue with a number 5 mm dermal curette to the left leg proximal wound done without incident. Predebridement measurement was 1.8 x 1.0 x 0.1 cm. Postdebridement measurement is 2.0 x 1.2 x 0.1 cm. The proximal left leg full-thickness wound was dressed with triple ointment antibiotic and sterile Band-Aid. Patient will continue daily dressing changes to the proximal leg and leave the heel dressing clean dry and intact. Educated the patient about smoking sensation which he is understanding of. Educated the patient to continue high-protein intake diet which he will be doing. He will continue to offload and elevate as discussed. Patient will follow-up in 1 week. (2) Non-pressure chronic ulcer of left heel and midfoot with necrosis of muscle: CODE(S): L97.423 - Non-pressure chronic ulcer of left heel and midfoot with necrosis of muscle (3) Non-pressure chronic ulcer of other part of left lower leg with fat layer exposed: CODE(S): L97.822 - Non-pressure chronic ulcer of other part of left lower leg with fat layer exposed
--- NOTE | 2025-02-18 09:31 | WC ---
PHOTO- LEFT HEEL 02/17/25
[2025-02-24 10:04] VITALS: BP 136/80; PULSE 72; RESP 16; TEMP 36.3
--- NOTE | 2025-02-24 10:29 | PN.PCM_ITS ---
History of Present Illness Date of Service: 02/24/25 Chief Complaint: Left heel decubitus ulcer History of Wound: 84-year-old white male who was in the hospital for a left hip replacement in August and he developed a left heel from digging into the sheets turning and moving blister that opened. They have only been using [id number] antibiotic ointment on it. Patient history of anemia. Saw their doctor and she referred them to the wound center. Progress of Wound: Stable left heel wound and left leg wound. Subjective Subjective Patient is 84-year-old male presented clinic today follow-up evaluation of full- thickness wound to the left heel with amniotic skin graft substitute. The patient has been offloading the left heel as discussed. He has reduced his smoking. He has no pain to left lower extremity. He denies trauma. Denies constitutional symptoms. No other pedal complaints at this time. Objective Data Objective Data Vital Signs: Vital Signs Temp Pulse Resp BP O2 Del Method 97.3 F L 72 16 136/80 H Room Air 02/24/25 10:04 02/24/25 10:04 02/24/25 10:04 02/24/25 10:04 02/24/25 10:04 Oxygen Delivery Method Room Air Physical Exam Narrative Vascular: DP and PT pulses are palpable. CFT is brisk. No erythema. Skin temperature is within normal limits. Neurological: Light touch intact. Patient does respond to painful stimuli. Dermatological: Full-thickness wound to the left heel measures 0.1 x 0.1 x 0.1 cm. Wound base is granular nature with no sign of infection. Healed proximal left leg full-thickness wound. Musculoskeletal: No pain to palpation full-thickness wound to left heel or leg. No pain with calf pressure. Debridement Note Debridement Note Post-Debridement Measurements and Additional Note: Post-Debridement Measurements/Treatment - Nurse 1 - General Ulcer Assessment Start: 02/17/25 10:12 Freq: Status: Active Protocol: CHRIS Activity Type Activity Date Activity User E-sign Co-sign Detail Recorded Client Recorded Date Recorded By Document 02/17/25 10:12 KW [id number] 02/17/25 10:18 KW Document 02/24/25 10:04 [id number] 02/24/25 10:14 02/17/25 02/24/25 10:12 10:04 - Today's Visit Information Type of service Follow-up Visit Follow-up Visit (Physician/MUFFLER MECHANIC (Physician/MUFFLER MECHANIC ) ) Arrival Mode Ambulatory, Ambulatory, Walker Walker Patient Identification Verified (Name & Yes Yes ) Patient Requires Transmission-Based No Precautions Vital Signs Temperature (97.8 F-99.1 F) 96.8 F L 97.3 F L Temperature Source Temporal Temporal Pulse Rate (60-100) 71 72 Pulse Location Monitor Monitor Respiratory Rate (12-18) 18 16 Respiratory rate source Observation Observation Oxygen Delivery Method Room Air Room Air Blood Pressure (90/60-120/80) 125/77 H 136/80 H Blood Pressure Mean (mm Hg) 93 98 Source Monitor Monitor Position Semi-Fowlers Sitting Blood Pressure Location Left Arm Left Arm History Since Last Visit- (Skip if this is Patient's initial visit) Have you changed medications since your No No last visit? Any new allergies or adverse reactions No No Had a fall/change in ADL's that may No No increase risk of falls Signs or symptoms of abuse and/or No No neglect since last visit Have you been in the hospital since your No No last visit? Has dressing in place as prescribed Yes Yes Has compression in place as prescribed Yes Yes Has offloadiing in place as prescribed N/A N/A Experienced any changes in pain level or No No management Left Footwear Regular Shoe Slipper Right Footwear Regular Shoe Slipper Pain Scale: 0-10 Numeric Is Patient Pain Free? Yes Yes - Nurse 1 - General Ulcer Measurement Start: 02/17/25 10:12 Freq: Status: Active Protocol: Activity Type Activity Date Activity User E-sign Co-sign Detail Recorded Client Recorded Date Recorded By Document 02/17/25 10:12 KW [id number] 02/17/25 10:18 KW Document 02/24/25 10:04 [id number] 02/24/25 10:14 02/17/25 02/24/25 10:12 10:04 Wound Center Nurse 1 2-LEFT LEG -Current Size (cm) - Length 0.3 0.1 -Current Size (cm) - Width 0.2 0.1 -Current Size (cm) - Depth 0.1 0.1 -Total Square Cm 0.06 0.01 -Date of Last Picture (Recall this 02/17/25 field) -Photo Taken No -Tunneling No -Undermining/Tunneling No -Circular Undermining No -Exudate Amt None Present -Granulation Amt Small (1-33%) -Granulation Quality Pale,[place] -Texture (Tiffanie-wound Skin Appearance) Assessed Assessed -Moisture (Tiffanie-wound Skin Appearance) Assessed Assessed -Color (Tiffanie-wound Skin Appearance) Assessed Assessed -Temperature (Tiffanie-wound Skin No Abnormality No Abnormality Appearance) (Pt Warm) (Pt Warm) -Tenderness on Palpation (Tiffanie-wound No No Skin Appearance) -Ulcer Cleansing Soap and Water Not Cleansed -Foul Odor after Cleansing No No -Anesthetic Used 5% Lidocaine Gel -Wound Comment(s) epifix in place WC - Nurse 2 - General Ulcer CM Notes Start: 02/17/25 10:12 Freq: Status: Active Protocol: Activity Type Activity Date Activity User E-sign Co-sign Detail Recorded Client Recorded Date Recorded By Document 02/17/25 10:40 MARIA DE JESUS [id number] 02/17/25 10:46 Document 02/24/25 10:27 [id number] 02/24/25 10:28 02/17/25 02/24/25 10:40 10:27 Wound Center Nurse 2 2-LEFT LEG -Time 10:45 -Correct Patient Yes Yes -Correct Side, Site, Position Yes No -Correct Procedure Yes No -Procedure Performed Yes No -Type of Procedure Debridement -Clinical Debridement Subcutaneous -Tissue Removed Subcutaneous -Post Debridement (cm) - Length 2 0 -Post Debridement (cm) - Width 1.2 0 -Post Debridement (cm) - Depth 0.1 0 -Total Square (Post) (cm) 2.4 0 -Area of Debridement (cm) - Length 2 0 -Area of Debridement (cm) - Width 1.2 0 -Total Square (Area) (cm) 2.4 0 -Tunneling No -Undermining/Tunneling No -Circular Undermining No -Wound/Ulcer Outcome Not Healed Healed- Epithelialized -Ulcer Cleansing Rinsed/ Irrigated with Saline -Foul Odor after Cleansing No -Bioengineered Tissue No -Bleeding Controlled with Pressure -Treatment Response Procedure Tolerated Well -Offloading No -Debridement - Subq, 1st 20sq cm Yes #1 LEFT HEEL -Time 10:42 -Correct Patient Yes Yes -Correct Side, Site, Position Yes No -Correct Procedure Yes No -Procedure Performed Yes No -Type of Procedure Debridement -Clinical Debridement Subcutaneous -Tissue Removed Subcutaneous -Post Debridement (cm) - Length 0.5 0.1 -Post Debridement (cm) - Width 0.8 0.1 -Post Debridement (cm) - Depth 0.2 0.1 -Total Square (Post) (cm) 0.40 0.01 -Area of Debridement (cm) - Length 0.5 0.1 -Area of Debridement (cm) - Width 0.8 0.1 -Total Square (Area) (cm) 0.40 0.01 -Tunneling No -Undermining/Tunneling No -Circular Undermining No -Wound/Ulcer Outcome Not Healed Not Healed -Ulcer Cleansing Rinsed/ Irrigated with Saline -Foul Odor after Cleansing No -Bioengineered Tissue Yes -Type of Bioengineered Tissue Epifix 18mm Disc -Expiration Date 11/15/29 -Product Lot Number [id number] -Percent Used 100 -Lot number of Saline Used [id number] -Bleeding Controlled with Pressure -Treatment Response Procedure Tolerated Well -Offloading No -Debridement - Subq, 1st 20sq cm No -Apply Skin Sub - 1st 25 sq cm - Feet 1 -Epifix 18mm Disc Application 1-4 3 Pain Scale: 0-10 Numeric Is Patient Pain Free? Yes Yes - Nurse 3 - General Ulcer D/C NN Start: 02/17/25 10:12 Freq: Status: Active Protocol: Activity Type Activity Date Activity User E-sign Co-sign Detail Recorded Client Recorded Date Recorded By Document 02/17/25 11:00 [id number] 02/17/25 11:01 02/17/25 11:00 Wound Care Center Nurse 3 2-LEFT LEG -Ulcer Cleansing Not Cleansed -Foul Odor after Cleansing No -Primary Dressing Applied Silicone Border Foam 4x4 -Other Covering ANTIBIOTIC OINTMENT -Silicone Border Foam 4x4 1 #1 LEFT HEEL -Ulcer Cleansing Not Cleansed -Foul Odor after Cleansing No -Primary Dressing Covered/Secured with Dry Gauze & Roll Gauze, Secured with Tape LLE -Lotion applied to leg before No compression wrap -Tubular Bandage Single Layer -Size of Tubigrip Used Size D -Size D ($) 1 -Stockings No Pain Scale: 0-10 Numeric Is Patient Pain Free? Yes - Visit Discharge Discharge Condition Stable Ambulatory Status Ambulatory, Walker Transportation Private Auto Assessment/Plan Assessment/Plan (1) Chronic venous hypertension (idiopathic) with ulcer of right lower extremity: CODE(S): I87.311 - Chronic venous hypertension (idiopathic) with ulcer of right lower extremity; L97.919 - Non-pressure chronic ulcer of unspecified part of right lower leg with unspecified severity PLAN: Patient was examined and evaluated. All findings were discussed with the patient. All questions were answered to the patient's satisfaction. After exam the patient's full-thickness wound to left heel measured 0.1 x 0.1 x 0.7 cm. Will apply hydrogel and bordered foam. The patient will leave it on for the next 1 to 2 days and then change daily. The proximal left leg wound is now healed and will be covered with a bordered foam on discharge from clinic today. Patient will continue smoking sensation. Will begin debriding the amnion skin graft substitute to the left heel next week and we will move forward with collagen application. Patient will be seeing vascular surgery today for evaluation and management. Patient will follow-up in 1 week. (2) Non-pressure chronic ulcer of left heel and midfoot with necrosis of muscle: CODE(S): L97.423 - Non-pressure chronic ulcer of left heel and midfoot with necrosis of muscle (3) Non-pressure chronic ulcer of other part of left lower leg with fat layer exposed: CODE(S): L97.822 - Non-pressure chronic ulcer of other part of left lower leg with fat layer exposed
[2025-03-03 09:30] VITALS: BP 137/62; PULSE 75; RESP 16; TEMP 36.2
--- NOTE | 2025-03-03 12:20 | PN.PCM_ITS ---
History of Present Illness Date of Service: 03/03/25 Chief Complaint: Left heel decubitus ulcer History of Wound: 84-year-old white male who was in the hospital for a left hip replacement in August and he developed a left heel from digging into the sheets turning and moving blister that opened. They have only been using [id number] antibiotic ointment on it. Patient history of anemia. Saw their doctor and she referred them to the wound center. Progress of Wound: Stable left heel wound and left leg wound. Subjective Subjective Patient is 84-year-old male presenting to clinic today follow-up evaluation of left heel ulceration status post amnion skin graft substitute with proximal left leg ulceration secondary to trauma. Patient states that the left proximal leg ulcer is now healed. He has reduced his smoking. He is offloading as discussed. He has no pain to the left heel. He admits that the wound is improved and is left the dressing clean dry and intact. He denies drainage. Denies trauma. Denies constitutional symptoms. No other pedal complaints at this time. Objective Data Objective Data Vital Signs: Vital Signs Temp Pulse Resp BP O2 Del Method 97.2 F L 75 16 137/62 H Room Air 03/03/25 09:30 03/03/25 09:30 03/03/25 09:30 03/03/25 09:30 02/24/25 10:04 Oxygen Delivery Method Room Air Physical Exam Narrative Vascular: DP and PT pulses are palpable. CFT is brisk. No erythema. Skin temperature is within normal limits. Neurological: Light touch intact. Patient does respond to painful stimuli. Dermatological: Full-thickness wound to the left heel measures 0.6 x 0.7 x 0.3 cm. Wound base is granular nature with no sign of infection. Healed proximal left leg full-thickness wound. Excisional debridement down to and including subcutaneous tissue with a number 3 mm dermal curette to the left heel full-thickness wound done without incident. Predebridement measurement was sanguinous crust. Postoperative measurement 0.6 x 0.7 x 0.3 cm. Musculoskeletal: No pain to palpation full-thickness wound to left heel or leg. No pain with calf pressure. Debridement Note Debridement Note Debridement Free Text: Excisional debridement down to and including subcutaneous tissue with a number 3 mm dermal curette to the left heel full-thickness wound done without incident. Predebridement measurement was sanguinous crust. Postoperative measurement 0.6 x 0.7 x 0.3 cm. Post-Debridement Measurements and Additional Note: Post-Debridement Measurements/Treatment - Nurse 1 - General Ulcer Assessment Start: 02/17/25 10:12 Freq: Status: Active Protocol: [email or web address] Activity Type Activity Date Activity User E-sign Co-sign Detail Recorded Client Recorded Date Recorded By Document 02/17/25 10:12 KW [id number] 02/17/25 10:18 KW Document 02/24/25 10:04 GM [id number] 02/24/25 10:14 GM Document 03/03/25 09:30 CP [id number] 03/03/25 09:32 CP 02/17/25 02/24/25 03/03/25 10:12 10:04 09:30 - Today's Visit Information Type of service Follow-up Visit Follow-up Visit Follow-up Visit (Physician/MANUFACTURING MILLWRIGHT (Physician/MANUFACTURING MILLWRIGHT (Physician/MANUFACTURING MILLWRIGHT ) ) ) Arrival Mode Ambulatory, Ambulatory, Walker Walker Walker Patient Identification Verified (Name & Yes Yes Yes ) Patient Requires Transmission-Based No Precautions Vital Signs Temperature (97.8 F-99.1 F) 96.8 F L 97.3 F L 97.2 F L Temperature Source Temporal Temporal Temporal Pulse Rate (60-100) 71 72 75 Pulse Location Monitor Monitor Monitor Respiratory Rate (12-18) 18 16 16 Respiratory rate source Observation Observation Observation Oxygen Delivery Method Room Air Room Air Blood Pressure (90/60-120/80) 125/77 H 136/80 H 137/62 H Blood Pressure Mean (mm Hg) 93 98 87 Source Monitor Monitor Monitor Position Semi-Fowlers Sitting Sitting Blood Pressure Location Left Arm Left Arm Left Arm History Since Last Visit- (Skip if this is Patient's initial visit) Have you changed medications since your No No No last visit? Any new allergies or adverse reactions No No No Had a fall/change in ADL's that may No No No increase risk of falls Signs or symptoms of abuse and/or No No No neglect since last visit Have you been in the hospital since your No No No last visit? Has dressing in place as prescribed Yes Yes Yes Has compression in place as prescribed Yes Yes Yes Has offloadiing in place as prescribed N/A N/A N/A Experienced any changes in pain level or No No No management Left Footwear Regular Shoe Slipper Right Footwear Regular Shoe Slipper Pain Scale: 0-10 Numeric Is Patient Pain Free? Yes Yes Yes WC - Nurse 1 - General Ulcer Measurement Start: 02/17/25 10:12 Freq: Status: Active Protocol: Activity Type Activity Date Activity User E-sign Co-sign Detail Recorded Client Recorded Date Recorded By Document 02/17/25 10:12 KW [id number] 02/17/25 10:18 KW Document 02/24/25 10:04 GM [id number] 02/24/25 10:14 GM Document 03/03/25 09:30 CP [id number] 03/03/25 09:32 CP 02/17/25 02/24/25 03/03/25 10:12 10:04 09:30 Wound Center Nurse 1 2-LEFT LEG -Current Size (cm) - Length 0.3 0.1 -Current Size (cm) - Width 0.2 0.1 -Current Size (cm) - Depth 0.1 0.1 -Total Square Cm 0.06 0.01 -Date of Last Picture (Recall this 02/17/25 field) -Photo Taken No -Tunneling No -Undermining/Tunneling No -Circular Undermining No -Exudate Amt None Present -Granulation Amt Small (1-33%) -Granulation Quality Pale,[place] -Texture (Tiffanie-wound Skin Appearance) Assessed Assessed -Moisture (Tiffanie-wound Skin Appearance) Assessed Assessed -Color (Tiffanie-wound Skin Appearance) Assessed Assessed -Temperature ([place]iffanie-wound Skin No Abnormality No Abnormality Appearance) (Pt Warm) (Pt Warm) -Tenderness on Palpation (Tiffanie-wound No No Skin Appearance) -Ulcer Cleansing Soap and Water Not Cleansed -Foul Odor after Cleansing No No -Anesthetic Used 5% Lidocaine Gel -Wound Comment(s) epifix in place #1 LEFT HEEL -Current Size (cm) - Length 0.5 -Current Size (cm) - Width 0.3 -Current Size (cm) - Depth 0.1 -Total Square Cm 0.15 -Exudate Type Serous -Wound Margin Flat & Intact -Slough/Fibrin Yes -Necrosis Amt Large (67-100%) -Necrotic Tissue Type Adherent Slough Right Calf (cm) 28.5 Right Ankle (cm) 20.5 WC - Nurse 2 - General Ulcer CM Notes Start: 02/17/25 10:12 Freq: Status: Active Protocol: Activity Type Activity Date Activity User E-sign Co-sign Detail Recorded Client Recorded Date Recorded By Document 02/17/25 10:40 [id number] 02/17/25 10:46 Document 02/24/25 10:27 [id number] 02/24/25 10:28 Document 03/03/25 09:49 [id number] 03/03/25 09:52 02/17/25 02/24/25 03/03/25 10:40 10:27 09:49 Wound Center Nurse 2 2-LEFT LEG -Time 10:45 -Correct Patient Yes Yes -Correct Side, Site, Position Yes No -Correct Procedure Yes No -Procedure Performed Yes No -Type of Procedure Debridement -Clinical Debridement Subcutaneous -Tissue Removed Subcutaneous -Post Debridement (cm) - Length 2 0 -Post Debridement (cm) - Width 1.2 0 -Post Debridement (cm) - Depth 0.1 0 -Total Square (Post) (cm) 2.4 0 -Area of Debridement (cm) - Length 2 0 -Area of Debridement (cm) - Width 1.2 0 -Total Square (Area) (cm) 2.4 0 -Tunneling No -Undermining/Tunneling No -Circular Undermining No -Wound/Ulcer Outcome Not Healed Healed- Epithelialized -Ulcer Cleansing Rinsed/ Irrigated with Saline -Foul Odor after Cleansing No -Bioengineered Tissue No -Bleeding Controlled with Pressure -Treatment Response Procedure Tolerated Well -Offloading No -Debridement - Subq, 1st 20sq cm Yes #1 LEFT HEEL -Time 10:42 09:51 -Correct Patient Yes Yes Yes -Correct Side, Site, Position Yes No Yes -Correct Procedure Yes No Yes -Procedure Performed Yes No Yes -Type of Procedure Debridement Debridement -Clinical Debridement Subcutaneous Subcutaneous -Tissue Removed Subcutaneous Subcutaneous -Post Debridement (cm) - Length 0.5 0.1 0.6 -Post Debridement (cm) - Width 0.8 0.1 0.7 -Post Debridement (cm) - Depth 0.2 0.1 0.3 -Total Square (Post) (cm) 0.40 0.01 0.42 -Area of Debridement (cm) - Length 0.5 0.1 0.6 -Area of Debridement (cm) - Width 0.8 0.1 0.7 -Total Square (Area) (cm) 0.40 0.01 0.42 -Tunneling No No -Undermining/Tunneling No No -Circular Undermining No No -Wound/Ulcer Outcome Not Healed Not Healed Not Healed -Ulcer Cleansing Rinsed/ Rinsed/ Irrigated with Irrigated with Saline Saline -Foul Odor after Cleansing No No -Bioengineered Tissue Yes No -Type of Bioengineered Tissue Epifix 18mm Disc -Expiration Date 11/15/29 -Product Lot Number [id number] -Percent Used 100 -Lot number of Saline Used [id number] -Bleeding Controlled with Pressure Pressure -Treatment Response Procedure Procedure Tolerated Well Tolerated Well -Offloading No No -Debridement - Subq, 1st 20sq cm No Yes -Apply Skin Sub - 1st 25 sq cm - Feet 1 -Epifix 18mm Disc Application 1-4 3 Pain Scale: 0-10 Numeric Is Patient Pain Free? Yes Yes Yes WC - Nurse 3 - General Ulcer D/C NN Start: 02/17/25 10:12 Freq: Status: Active Protocol: Activity Type Activity Date Activity User E-sign Co-sign Detail Recorded Client Recorded Date Recorded By Document 02/17/25 11:00 [id number] 02/17/25 11:01 Document 02/24/25 10:29 [id number] 02/24/25 10:29 Document 03/03/25 10:02 DS [id number] 03/03/25 10:10 DS 02/17/25 02/24/25 03/03/25 11:00 10:29 10:02 Wound Care Center Nurse 3 2-LEFT LEG -Ulcer Cleansing Not Cleansed -Foul Odor after Cleansing No -Primary Dressing Applied Silicone Border Foam 4x4 -Other Covering ANTIBIOTIC OINTMENT -Silicone Border Foam 4x4 1 #1 LEFT HEEL -Ulcer Cleansing Not Cleansed Rinsed/ Irrigated with Saline -Foul Odor after Cleansing No No -Primary Dressing Applied Silicone Border Promogran Foam 4x4 Mariam Matter -Primary Dressing Covered/Secured with Dry Gauze & Dry Gauze, Roll Gauze, Secured with Secured with Tape Tape -Promogran Mariam Matter 1 -Silicone Border Foam 4x4 2 LLE -Lotion applied to leg before No compression wrap -Tubular Bandage Single Layer Single Layer -Size of Tubigrip Used Size D Size D -Size D ($) 1 1 -Stockings No Pain Scale: 0-10 Numeric Is Patient Pain Free? Yes Yes Yes WC - Visit Discharge Discharge Condition Stable Stable Stable Ambulatory Status Ambulatory, Ambulatory, Ambulatory, Walker Walker Walker Transportation Private Auto Private Auto Private Auto Medication Reconcilliation completed & Yes provided to patient/care provider Clinical Summary of Care Provided Yes Assessment/Plan Assessment/Plan (1) Chronic venous hypertension (idiopathic) with ulcer of right lower extremity: CODE(S): I87.311 - Chronic venous hypertension (idiopathic) with ulcer of right lower extremity; L97.919 - Non-pressure chronic ulcer of unspecified part of right lower leg with unspecified severity PLAN: Patient was examined and evaluated. All findings were discussed with the patient. All questions were answered to the patient's satisfaction. Excisional debridement down to and including subcutaneous tissue with a number 3 mm dermal curette to the left heel full-thickness wound done without incident. Predebridement measurement was sanguinous crust. Postoperative measurement 0.6 x 0.7 x 0.3 cm. The area was dressed with moist Mariam dry sterile dressing and compression wrap was donned to the left lower extremity. Patient will continue every other day dressing changes. Patient will be seeing vascular surgery today for evaluation and management. Patient will follow-up in 2 week. (2) Non-pressure chronic ulcer of left heel and midfoot with necrosis of muscle: CODE(S): L97.423 - Non-pressure chronic ulcer of left heel and midfoot with necrosis of muscle
--- NOTE | 2025-03-04 08:11 | WC ---
PHOTO - LEFT HEEL 03/03/25
== END 2025-03-16 23:59 | disposition home or self-care (01) ==
LOC: WC 09:15
PROVIDERS: PCP Internal Medicine; Referring Provider Physician Assistant; Visit Provider Podiatrist Foot & Ankle Surgery
DX: I87.311 Chronic venous hypertension (idiopathic) with ulcer of right lower extremity (principal); L97.423 Non-pressure chronic ulcer of left heel and midfoot with necrosis of muscle; L97.919 Non-pressure chronic ulcer of unspecified part of right lower leg with unspecified severity; F17.200 Nicotine dependence, unspecified, uncomplicated
CPT/HCPCS: 11042; 15275; 99212; Q4186; G0463

== ENCOUNTER → 2025-03-03 | Outpatient (CLI) | payer MEDICARE, SELFPAY ==
[2025-03-03 15:23] LABS: Hematocrit 38.9 % (40-54); Hemoglobin 12.7 g/dL (13.0-16.5); Immature Granulocytes Count 0.020 X10^3/uL (0.0-0.0); Mean Corp Hgb Conc 32.6 g/dL (32-36); Mean Corpuscular Volume 83.1 fL (80-94); Mean Platelet Vol. 9.4 fl (6.2-12.0); NRBC Flagged by Analyzer 0 % (0-5); Platelet Count 277 K/mm3 (150-450); RBC Distribution Width CV 17.7 % (11.6-14.6); RBC Distribution Width SD 53.1 fl (35.1-43.9); Red Blood Count 4.68 M/mm3 (4.6-6.2); White Blood Count 7.5 K/mm3 (4.4-11.0)
[2025-03-03 15:44] LABS: AST(SGOT) 21 U/L (<=37); Alanine Aminotransfer ALT/SGPT 14 U/L (<=46); Albumin, Serum 4.4 g/dL (3.4-4.8); Alkaline Phosphatase 110 U/L (40-129); Anion Gap 13 (5-15); BUN 14 mg/dL (4-19); BUN/Creat Ratio 18.5 RATIO (10-20); Calcium,Total 9.4 mg/dL (7.6-11.0); Carbon Dioxide 23.4 mmol/L (21.0-32.0); Chloride 99 mmol/L (98-108); Globulin 2.8 g/dL (2.2-4.2); Glucose 93 mg/dL (70-99); Potassium 4.9 mmol/L (3.3-5.1)
== END | disposition home or self-care (01) ==
LOC: BIMLAB 12:14
PROVIDERS: PCP Internal Medicine; Visit Provider Internal Medicine
DX: I10 Essential (primary) hypertension (principal)
CPT/HCPCS: 36415; 80053; 85025